=== PATIENT | female | born 1945 | race Native Hawaiian/Other Pacific Islander ===

== ENCOUNTER 2016-11-11 11:59 | Inpatient (IN) | payer MEDICARE, BC ==
--- NOTE | 2016-11-11 12:14 | C.PDOC ---
History Of Present Illness 70-year-old female, PMHx includes ESRD (HD MWF), presents to the emergency department, accompanied by family with complaints of fever. Patient has w/ a fever (T-Max: 101, three days ago), that is associated with nausea and non- bloody/non-bilious vomiting. Pt comes in today s/p dialysis (45 mins); Pt currently complaining of "feeling cold." All other Hx limited due to clinical condition. Time Seen by Provider: 11/11/16 12:06 Past Medical History Reviewed: Historical Data, Nursing Documentation, Vital Signs Vital Signs: Last Vital Signs Temp 99.9 F H 11/11/16 16:01 Pulse 102 H 11/11/16 17:21 Resp 21 11/11/16 17:21 BP 135/74 11/11/16 17:21 Pulse Ox 100 11/11/16 17:21 Family History: States: Unknown Family Hx Review Of Systems Review Of Systems: ROS cannot be obtained secondary to pt's inabilty to answer questions. Constitutional: Positive for: Fever ( PER FAMILY 101), Chills Cardiovascular: Negative for: Chest Pain Respiratory: Negative for: Shortness of Breath Gastrointestinal: Positive for: Vomiting ( PER FAMILY) Physical Exam - Physical Exam Appears: Non-toxic, Other (APPEARS WEAK) Skin: Warm, Dry, No Rash Eye(s): bilateral: Normal Inspection, PERRL Oral Mucosa: Moist Neck: Normal ROM Chest: Other (PORTACATH R CHEST ) Cardiovascular: Rhythm Regular Respiratory: No Accessory Muscle Use Gastrointestinal/Abdominal: No Tenderness, Distention (MILD), No Guarding, No Rebound Extremity: Normal ROM ED Course And Treatment - Laboratory Results Result Diagrams: 11/11/16 13:20 11/11/16 13:20 ECG: Interpreted By Me, Viewed By Ia ECG Rhythm: Sinus Tachycardia Rate From EC - Radiology CXR: Interpreted by Me CXR Interpretation: Yes: Infiltrates (L INFIL VS EFFUSION NO PRIOR) Progress - Re-Evaluation Re-evaluation Note: 11/11/16 13:45 S/P EVAL DR SENA. WILL CONSULT. ADVISES CT, PT CLEARED TO RECEIVE HD AND WILL ARRANGE FOR POST CT HD. ADMIT PMD, CONSULT DR CARROLL 11/11/16 18:00 D/W DR Ivone SOUSA AWARE OF ER FINDINGS WILL ADMIT PENDING CALLBACK DR SENA 11/11/16 18:11 CT FINDINGS D/W DR SENA 11/11/16 18:43 D/W DR CARROLL WILL CONSULT - Data Reviewed Data Reviewed: Lab, Diagnostic imaging, EKG, Old records - Critical Care Citical Care: Excluding Proc Time Critical Care Time: 90 minutes - Continuity of Care Discussed patient case with:: Patient, Family-HIPPA compliant, PMD Discussed pt. case with [employer] consultant/specialty: Nephrology Medical Decision Making Medical Decision Making: Plan: * VBG * EKG * BNP, CMP, Mag, Phos, Trop I * Chest X-Jack * Azithromycin, Rocephin * Blood/Urine Culture * Urinalysis * Reassess and Disposition Disposition Counseled Patient/Family Regarding: Studies Performed, Diagnosis - Disposition Disposition: HOSPITALIZED Disposition Time: 18:01 Condition: STABLE - POA Present On Arrival: Poor Glycemic Control - Clinical Impression Clinical Impression: ESRD (end stage renal disease), Intra-abdominal abscess - Scribe Statement The provider has reviewed the documentation as recorded by the Jean-Paul Ramachandran All medical record entries made by the O[place]hibmar[place]osa were at my direction and personally dictated by me. I have reviewed the chart and agree that the record accurately reflects my personal performance of the history, physical exam, medical decision making, and the department course for this patient. I have also personally directed, reviewed, and agree with the discharge instructions and disposition. Decision To Admit - Pt Status Changed To: Hospital Disposition Of: Inpatient - Admit Certification Admit to Inpatient:: After my assessment, the patient will require hospitalization for at least two midnights. This is because of the severity of symptoms shown, intensity of services needed, and/or the medical risk in this patient being treated as an outpatient. - InPatient: Physician Admission Certification: I certify that this patient requires 2 or more midnights of care for the following reason:: SEE NOTE - . Bed Request Type: Regular Admitting Physician: Geraldo Sousa Patient Diagnosis: ESRD (end stage renal disease), Intra-abdominal abscess
--- NOTE | 2016-11-11 12:57 | RAD ---
HISTORY: Sepsis Patient COMPARISON: No prior. FINDINGS: LUNGS: Hazy opacity in the lung bases. PLEURA: Left-sided pleural effusion. Biapical pleural parenchymal thickening noted. CARDIOVASCULAR: Enlarged heart. OSSEOUS STRUCTURES: The osseous structures demonstrate degenerative changes. VISUALIZED UPPER ABDOMEN: Upper abdomen is suboptimally evaluated. OTHER FINDINGS: Right-sided dialysis catheter with the distal tip of the catheter overlying the projection of the SVC/right atrial junction. IMPRESSION: Left-sided pleural effusion with associated compressive atelectasis and/ pneumonia.
[2016-11-11] MEDS ORDERED: cefTRIAXone IV 1 gm in Dextros 50 ML IV STA (12:59)
[2016-11-11] MEDS ORDERED: Azithromycin 500 MG in Sodium Chloride 0.9% 250 ML IV STA (12:59)
[2016-11-11 13:27] LABS: BASO # 0.1 K/uL (0.0-0.2); BASO % 0.3 % (0.0-2.0); EOS # 0.1 K/uL (0.0-0.7); EOS % 0.3 % (0.0-4.0); HEMATOCRIT 22.3 % (34.0-47.0); LYMPH # 1.1 K/uL (1.0-4.3); LYMPH % 5.8 % (20.0-40.0); MEAN CELL VOLUME 88.4 fL (81.0-99.0); MEAN CORPUSCULAR HEMOGLOBIN 28.8 pg (27.0-31.0); MEAN CORPUSCULAR HGB CONC 32.6 g/dL (33.0-37.0); MEAN PLATELET VOLUME 8.5 fL (7.2-11.7); MONO # 2.1 K/uL (0.0-0.8); MONO % 10.9 % (0.0-10.0); PLATELET COUNT 295 K/uL (130-400); RED CELL DISTRIBUTION WIDTH 15.9 % (11.5-14.5); WHITE BLOOD COUNT 18.9 K/uL (4.8-10.8)
[2016-11-11] MEDS ORDERED: cefTRIAXone IV 1 gm in Dextros 50 ML IVPB ONE (13:27)
[2016-11-11 13:31] LABS: VENOUS BLOOD GAS BASE EXCESS 5.2 mmol/L (0.0-2.0); VENOUS BLOOD GAS PCO2 39 mmHg (40-60); VENOUS BLOOD PH 7.48 (7.32-7.43)
[2016-11-11 13:36] LABS: POTASSIUM 4.4 mmol/L (3.6-5.2)
[2016-11-11] MEDS ORDERED: Azithromycin 500mg/250ML NS 250 ML IVPB ONE (13:36)
[2016-11-11 13:38] LABS: ALB/GLOB RATIO 0.7 (1.0-2.1); BILIRUBIN,TOTAL 1.4 mg/dL (0.2-1.3); PHOSPHOROUS 4.4 mg/dL (2.5-4.5); TOTAL PROTEIN 8.1 g/dL (6.3-8.3)
[2016-11-11 13:39] LABS: CALCIUM 9.4 mg/dl (8.6-10.4)
[2016-11-11 13:49] LABS: TROPONIN I 0.026 ng/mL (0.00-0.120)
[2016-11-11 13:56] LABS: INR 1.1
[2016-11-11 13:58] LABS: PARTIAL THROMBOPLASTIN TIME > 400 SECONDS (21-34)
[2016-11-11 14:04] LABS: REACTIVE LYMPHOCYTES 2 % (0-0); TOTAL CELLS COUNTED 100
[2016-11-11 14:08] LABS: NEUTROPHIL 64 % (50-75)
[2016-11-11] MEDS ORDERED: Piperacillin/Tazobact 3.375 gm 100 ML IV STA (14:15)
[2016-11-11] MEDS ORDERED: Piperacillin/Tazobact 3.375 gm 100 ML IVPB ONE (15:06)
[2016-11-11 15:19] LABS: VENOUS BLOOD GAS BASE EXCESS 4.7 mmol/L (0.0-2.0); VENOUS BLOOD GAS PCO2 37 mmHg (40-60); VENOUS BLOOD PH 7.49 (7.32-7.43)
[2016-11-11] MEDS ORDERED: Iohexol 350mg/ml 100 ML ONE (16:17)
--- NOTE | 2016-11-11 17:34 | CT ---
PROCEDURE: CT Abdomen and Pelvis with contrast HISTORY: FEVER, ESRD HO RECENT PERIONTITIS, PERIT DIALYSIS COMPARISON: Comparison is made to the previous study dated 07/05/2014 TECHNIQUE: Contrast dose: 100 mL Omnipaque Radiation dose: Total exam DLP = 586.19 mGy-cm. This CT exam was performed using one or more of the following dose reduction techniques: Automated exposure control, adjustment of the mA and/or kV according to patient size, and/or use of iterative reconstruction technique. FINDINGS: LOWER THORAX: Focal opacity at the right lower lobe. No evidence of significant pleural effusion. LIVER: No evidence of acute pathology or mass in the liver. GALLBLADDER AND BILE DUCTS: Gallstones are seen associated with diffuse gallbladder wall thickening. PANCREAS: Unremarkable. No gross lesion or ductal dilatation. SPLEEN: Unremarkable. ADRENALS: Unremarkable. No mass. KIDNEYS AND URETERS: The kidneys are small in size consistent with the patient's history of chronic renal failure. No evidence of hydronephrosis. Low-attenuation cystic lesion at the right kidney measures 1.5 centimeter. VASCULATURE: Unremarkable. No aortic aneurysm. BOWEL: Moderately dilated small bowel loops demonstrate moderate diffuse wall thickening seen in the abdomen and upper pelvis. The large bowel is partially collapse. Diffuse colonic diverticulosis are seen. APPENDIX: No evidence of appendicitis. PERITONEUM: There is small ascites in the abdomen. There is diffuse thick enhancement of the peritoneal. The possibility of peritonitis should be highly considered. There is enhancing wall collection at the lower abdomen. The possibility of abscess formation is not totally excluded. LYMPH NODES: Unremarkable. No enlarged lymph nodes. BLADDER: The urinary bladder is not distended therefore cannot be evaluated. REPRODUCTIVE: The uterus is mildly enlarged for the patient's age. BONES: No acute fracture. OTHER FINDINGS: None. IMPRESSION: Moderately dilated small bowel loops demonstrate moderate wall thickening seen in the abdomen and upper pelvis. Partially collapsed large bowel. Findings could represent bowel ileus or low-grade bowel obstruction in addition to enteritis. Diffuse thick enhancement of the peritoneal associated with small ascites. The possibility of peritonitis should be highly considered. Suspicious for enhancing wall collection at the lower abdomen. The possibility of abscess formation also should be considered. Gallstones. Mild gallbladder wall thickening.
--- NOTE | 2016-11-11 19:24 | CP.PCM.HP ---
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 This morning, pt vomited her stomach contents consisting mainly of tea, and dialysis was aborted bec of pt's apparent critical condition. Pt was sent to [facility] [place] ER where I was called 1 hour ago that pt was in the ER and to be admitted. Present on Admission - Present on Admission Any Indicators Present on Admission: No History of DVT/PE: No History of Uncontrolled Diabetes: No Urinary Catheter: No Decubitus Ulcer Present: No Review of Systems - Review of Systems Systems not reviewed;Unavailable: Unstable Vital Signs, Respiratory Distress - Constitutional Constitutional: Chills, Fatigue, Fever, Lethargy, Weakness - EENT Nose/Mouth/Throat: Dry Mouth - Cardiovascular Cardiovascular: Dyspnea on Exertion - Respiratory Respiratory: Other Additional comments: appears struggling to breathe - Gastrointestinal Gastrointestinal: Bloating Past Patient History - Infectious Disease Hx of Infectious Diseases: None - Past Social History Smoking Status: Never Smoked - PSYCHIATRIC Hx Substance Use: No Meds Allergies/Adverse Reactions: Allergies Allergy/AdvReac Type Severity Reaction Status Date / Time No Known Allergies Allergy Verified 11/11/16 15:52 Physical Exam - Constitutional Appears: In Acute Distress, Cachectic, Chronically Ill - Head Exam Head Exam: ATRAUMATIC, NORMAL INSPECTION, NORMOCEPHALIC - Eye Exam Eye Exam: Normal appearance Pupil Exam: NORMAL ACCOMODATION, PERRL - ENT Exam ENT Exam: Mucous Membranes Moist, Normal Exam - Neck Exam Neck exam: Positive for: Normal Inspection Additional comments: no thyroid tenderness - Respiratory Exam Respiratory Exam: NORMAL BREATHING PATTERN - Cardiovascular Exam Cardiovascular Exam: Tachycardia, RRR, +S1, +S2 - GI/Abdominal Exam GI & Abdominal Exam: Distended, Firm, Hypoactive Bowel Sounds, Rigid - Rectal Exam Rectal Exam: Deferred - Extremities Exam Extremities exam: Positive for: normal inspection - Back Exam Back exam: NORMAL INSPECTION - Neurological Exam Additional comments: appears very sleepy though mentation not obtunded; responds to questions appropriately though very quietly and slowly 2ndry to apparent shortness of breath - Psychiatric Exam Additional comments: appears very sleepy though mentation not obtunded; responds to questions appropriately though very quietly and slowly 2ndry to apparent shortness of breath Results - Vital Signs Recent Vital Signs: Last Vital Signs Temp 99.3 F 11/11/16 18:49 Pulse 98 H 11/11/16 18:49 Resp 22 11/11/16 18:49 BP 138/69 11/11/16 18:49 Pulse Ox 100 11/11/16 18:49 - Labs Result Diagrams: 11/12/16 06:30 11/12/16 06:48 Assessment & Plan (1) Anemia of chronic disease Assessment and Plan: stat transfusion of 2 units PRBC to optimize respiratory status and decrease stress on cardiovascular system Status: Acute (2) Gastroparesis Assessment and Plan: start on metoclopramide ACHS and taper when moving her bowels well already Status: Acute (3) Intra-abdominal abscess Assessment and Plan: consult ID for abx intervention and revisit imaging with CT scan after a few days if with resolution or improvement/decrease in size Status: Acute (4) ESRD (end stage renal disease) Assessment and Plan: consult nephro for stat hemodialysis Status: Acute (5) Generalized weakness Assessment and Plan: mostly multifactorial including prolonged systemic infection and anemia + ESRD Status: Acute Decision To Admit - Pt Status Changed To: Hospital Disposition Of: Inpatient - Admit Certification Admit to Inpatient:: After my assessment, the patient will require hospitalization for at least two midnights. This is because of the severity of symptoms shown, intensity of services needed, and/or the medical risk in this patient being treated as an outpatient. - InPatient: Physician Admission Certification:: After my assessment, the patient will require hospitalization for at least two midnights. This is because of the severity of symptoms shown, intensity of services needed, and/or the medical risk in this patient being treated as an outpatient. - . Bed Request Type: Telemetry Admitting Physician: Geraldo Sousa
--- NOTE | 2016-11-11 21:00 | CP.PCM.CON ---
History of Present Illness - History of Present Illness History of Present Illness: Gen Surg: Dr. Garzon 70F w/ PMHx of DM,HTN, ESRD who was admitted at [facility] acute rehab after a bout of peritonitis which was [place] [facility] [place] Pt was receiving HD but appeared short of breath and had been spiking fevers, HD stopped and pt sent to ED. Pt had bouts of emesis in the morning and complained of abdominal pain with coughing. Pt to be given emergent dialysis and blood transfusion, 2PRBCs. Review of Systems - Review of Systems Review of Systems: ROS unobtainable due to pt condition Past Patient History - Infectious Disease Hx of Infectious Diseases: None - Past Social History Smoking Status: Never Smoked - PSYCHIATRIC Hx Substance Use: No Meds Allergies/Adverse Reactions: Allergies Allergy/AdvReac Type Severity Reaction Status Date / Time No Known Allergies Allergy Verified 11/11/16 15:52 - Medications Medications: Current Medications Acetaminophen (Tylenol 325mg Tab) 650 mg PO Q6 PRN PRN Reason: temp > 99.5 Metoclopramide HCl (Reglan) 10 mg IVP ACHS MARYLOU Physical Exam - Constitutional Appears: Chronically Ill - Head Exam Head Exam: NORMAL INSPECTION - ENT Exam ENT Exam: Mucous Membranes Moist - Respiratory Exam Respiratory Exam: Decreased Breath Sounds. absent: Accessory Muscle Use - Cardiovascular Exam Cardiovascular Exam: +S1, +S2 - GI/Abdominal Exam GI & Abdominal Exam: Tenderness. absent: Distended, Firm, Guarding - Extremities Exam Extremities exam: Negative for: pedal edema - Neurological Exam Neurological exam: Alert - Skin Skin Exam: Intact, Warm Results - Vital Signs Recent Vital Signs: Last Vital Signs Temp 99.3 F 11/11/16 18:49 Pulse 98 H 11/11/16 18:49 Resp 22 11/11/16 18:49 BP 138/69 11/11/16 18:49 Pulse Ox 100 11/11/16 18:49 - Labs Result Diagrams: 11/13/16 07:16 11/13/16 07:16 Assessment & Plan - Assessment and Plan (Free Text) Assessment: 71F w/ hx of peritonitis -CT scan demonstrated fluid in abdomen -Currently no acute surgical intervention planned -Will ask IR to sample fluid in abdomen, drain if possible -C/w Abx tx as per ID -F/u cultures -Will continue to follow -Dw Dr. Garzon
[2016-11-12 06:42] LABS: EOS % 0.2 % (0.0-4.0); HEMATOCRIT 28.6 % (34.0-47.0); LYMPH # 0.7 K/uL (1.0-4.3); LYMPH % 3.9 % (20.0-40.0); MEAN CELL VOLUME 86.4 fL (81.0-99.0); MEAN CORPUSCULAR HGB CONC 33.6 g/dL (33.0-37.0); MEAN PLATELET VOLUME 8.3 fL (7.2-11.7); MONO # 1.4 K/uL (0.0-0.8); MONO % 7.5 % (0.0-10.0); PLATELET COUNT 285 K/uL (130-400); RED CELL DISTRIBUTION WIDTH 15.9 % (11.5-14.5); WHITE BLOOD COUNT 17.9 K/uL (4.8-10.8)
[2016-11-12 08:52] LABS: ALB/GLOB RATIO 0.7 (1.0-2.1); BILIRUBIN,TOTAL 1.3 mg/dL (0.2-1.3); CALCIUM 8.3 mg/dl (8.6-10.4); MAGNESIUM 1.9 mg/dL (1.6-2.3); PHOSPHOROUS 4.3 mg/dL (2.5-4.5); POTASSIUM 3.5 mmol/L (3.6-5.2); TOTAL PROTEIN 7.4 g/dL (6.3-8.3)
[2016-11-12 09:22] LABS: NEUTROPHIL 67 % (50-75); TOTAL CELLS COUNTED 100
--- NOTE | 2016-11-12 09:48 | CP.PCM.CON ---
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 This morning, pt vomited her stomach contents consisting mainly of tea, and dialysis was aborted. Past Patient History Hx of Infectious Diseases: None PMH: ESRD DIABETIC NEPHROPATHY DM 2 HTN S/P PSEUDOMONAS PERITONITIS 10/04 WITH ILEUS S/P TENKOFF REMOVAL 10/04 AT [facility] DUE TO VOMITING, FEVERS, SEVERE ANEMIA, ONABILTY TO SAFELY DIALYZE OUTPT PT SENT TO ED 11/11 GIVEN DIALYSIS WITH 2 UNITS PRBCS BLOOD TRANSFUSION LAST PM CONSULT DICTATED Past Patient History - Infectious Disease Hx of Infectious Diseases: None - Past Medical History & Family History Past Medical History?: Yes - Past Social History Smoking Status: Never Smoked - CARDIAC Hx Cardiac Disorders: Yes Hx Hypertension: Yes - PULMONARY Hx Respiratory Disorders: No - NEUROLOGICAL Hx Neurological Disorder: No - HEENT Hx HEENT Problems: No - RENAL Hx Chronic Kidney Disease: Yes Hx Dialysis: Yes Hx Renal Failure: Yes - ENDOCRINE/METABOLIC Hx Endocrine Disorders: No - HEMATOLOGICAL/ONCOLOGICAL Hx Blood Disorders: No - INTEGUMENTARY Hx Dermatological Problems: No - MUSCULOSKELETAL/RHEUMATOLOGICAL Hx Musculoskeletal Disorders: No Hx Falls: No - GASTROINTESTINAL Hx Gastrointestinal Disorders: No - GENITOURINARY/GYNECOLOGICAL Hx Genitourinary Disorders: No - PSYCHIATRIC Hx Substance Use: No - SURGICAL HISTORY Hx Surgeries: Yes Hx Vascular Surgery: Yes Hx Vascular Access Device: Yes - ANESTHESIA Hx Anesthesia: Yes Hx Anesthesia Reactions: No Meds Allergies/Adverse Reactions: Allergies Allergy/AdvReac Type Severity Reaction Status Date / Time No Known Allergies Allergy Verified 11/11/16 15:52 - Medications Medications: Current Medications Acetaminophen (Tylenol 325mg Tab) 650 mg PO Q6 PRN PRN Reason: temp > 99.5 Metoclopramide HCl (Reglan) 10 mg IVP ACHS [facility] Last Admin: 11/11/16 22:00 Dose: Not Given Results - Vital Signs Recent Vital Signs: Last Vital Signs Temp 99.4 F 11/12/16 07:22 Pulse 95 H 11/12/16 07:22 Resp 20 11/12/16 07:22 BP 112/69 11/12/16 07:22 Pulse Ox 98 11/12/16 07:22 - Labs Result Diagrams: 11/12/16 06:30 11/12/16 06:48 Labs: Laboratory Results - last 24 hr 11/11/16 11/12/16 11/12/16 21:14 06:30 06:48 WBC 17.9 H RBC 3.31 L Hgb 9.6 L D Hct 28.6 L MCV 86.4 D MCH 29.0 MCHC 33.6 RDW 15.9 H Plt Count 285 MPV 8.3 Neut % (Auto) 88.4 H Lymph % (Auto) 3.9 L Jack % (Auto) 7.5 Eos % (Auto) 0.2 Baso % (Auto) 0.0 Neut # 15.8 H Lymph # 0.7 L Jack # 1.4 H Eos # 0.0 Baso # 0.0 Neutrophils % (Manual) 67 Band Neutrophils % 22 H* Lymphocytes % (Manual) 2 L Monocytes % (Manual) 9 Platelet Estimate Normal Hypochromasia (manual) Slight Poikilocytosis (manual Slight Anisocytosis (manual) Slight Macrocytosis (manual) Slight Sodium 137 Potassium 3.5 L Chloride 95 L Carbon Dioxide 24 Anion Gap 22 H BUN 28 H Creatinine 4.2 H Est GFR ( Amer) 13 Est GFR (Non-Af Amer) 10 Random Glucose 121 H Lactic Acid Calcium 8.3 L Phosphorus 4.3 Magnesium 1.9 Total Bilirubin 1.3 AST 41 H ALT 27 Alkaline Phosphatase 163 H Total Protein 7.4 Albumin 3.1 L Globulin 4.3 H Albumin/Globulin Ratio 0.7 L Blood Type A POSITIVE Blood Type Confirm A POSITIVE Antibody Screen Negative 11/12/16 06:48 WBC RBC Hgb Hct MCV MCH MCHC RDW Plt Count MPV Neut % (Auto) Lymph % (Auto) Jack % (Auto) Eos % (Auto) Baso % (Auto) Neut # Lymph # Jack # Eos # Baso # Neutrophils % (Manual) Band Neutrophils % Lymphocytes % (Manual) Monocytes % (Manual) Platelet Estimate Hypochromasia (manual) Poikilocytosis (manual Anisocytosis (manual) Macrocytosis (manual) Sodium Potassium Chloride Carbon Dioxide Anion Gap BUN Creatinine Est GFR ( Amer) Est GFR (Non-Af Amer) Random Glucose Lactic Acid 1.2 Calcium Phosphorus Magnesium Total Bilirubin AST ALT Alkaline Phosphatase Total Protein Albumin Globulin Albumin/Globulin Ratio Blood Type Blood Type Confirm Antibody Screen
--- NOTE | 2016-11-12 11:29 | CP.PCM.CON ---
History of Present Illness - History of Present Illness History of Present Illness: hx of recent peritonitis IV Merrem/ Genta ordered await CT Past Patient History - Infectious Disease Hx of Infectious Diseases: None - Past Medical History & Family History Past Medical History?: Yes - Past Social History Smoking Status: Never Smoked - CARDIAC Hx Cardiac Disorders: Yes Hx Hypertension: Yes - PULMONARY Hx Respiratory Disorders: No - NEUROLOGICAL Hx Neurological Disorder: No - HEENT Hx HEENT Problems: No - RENAL Hx Chronic Kidney Disease: Yes Hx Dialysis: Yes Hx Renal Failure: Yes - ENDOCRINE/METABOLIC Hx Endocrine Disorders: No - HEMATOLOGICAL/ONCOLOGICAL Hx Blood Disorders: No - INTEGUMENTARY Hx Dermatological Problems: No - MUSCULOSKELETAL/RHEUMATOLOGICAL Hx Musculoskeletal Disorders: No Hx Falls: No - GASTROINTESTINAL Hx Gastrointestinal Disorders: No - GENITOURINARY/GYNECOLOGICAL Hx Genitourinary Disorders: No - PSYCHIATRIC Hx Substance Use: No - SURGICAL HISTORY Hx Surgeries: Yes Hx Vascular Surgery: Yes Hx Vascular Access Device: Yes - ANESTHESIA Hx Anesthesia: Yes Hx Anesthesia Reactions: No Meds Allergies/Adverse Reactions: Allergies Allergy/AdvReac Type Severity Reaction Status Date / Time No Known Allergies Allergy Verified 11/11/16 15:52 - Medications Medications: Current Medications Acetaminophen (Tylenol 325mg Tab) 650 mg PO Q6 PRN PRN Reason: temp > 99.5 Epoetin Mik (Procrit) 10,000 unit IV MWF MARYLOU Dextrose/Sodium Chloride (Dextrose 5%/0.45% Ns 1000 Ml) 1,000 mls @ 50 mls/hr IV .Q20H MARYLOU Metoclopramide HCl (Reglan) 10 mg IVP ACHS MARYLOU Last Admin: 11/11/16 22:00 Dose: Not Given Results - Vital Signs Recent Vital Signs: Last Vital Signs Temp 99.4 F 11/12/16 07:22 Pulse 95 H 11/12/16 07:22 Resp 20 11/12/16 07:22 BP 112/69 11/12/16 07:22 Pulse Ox 98 11/12/16 07:22 - Labs Result Diagrams: 11/12/16 06:30 11/12/16 06:48 Labs: Laboratory Results - last 24 hr 11/11/16 11/12/16 11/12/16 21:14 06:30 06:48 WBC 17.9 H RBC 3.31 L Hgb 9.6 L D Hct 28.6 L MCV 86.4 D MCH 29.0 MCHC 33.6 RDW 15.9 H Plt Count 285 MPV 8.3 Neut % (Auto) 88.4 H Lymph % (Auto) 3.9 L [place] % (Auto) 7.5 Eos % (Auto) 0.2 Baso % (Auto) 0.0 Neut # 15.8 H Lymph # 0.7 L [place] # 1.4 H Eos # 0.0 Baso # 0.0 Neutrophils % (Manual) 67 Band Neutrophils % 22 H* Lymphocytes % (Manual) 2 L Monocytes % (Manual) 9 Platelet Estimate Normal Hypochromasia (manual) Slight Poikilocytosis (manual Slight Anisocytosis (manual) Slight Macrocytosis (manual) Slight Sodium 137 Potassium 3.5 L Chloride 95 L Carbon Dioxide 24 Anion Gap 22 H BUN 28 H Creatinine 4.2 H Est GFR ( Amer) 13 Est GFR (Non-Af Amer) 10 Random Glucose 121 H Lactic Acid Calcium 8.3 L Phosphorus 4.3 Magnesium 1.9 Total Bilirubin 1.3 AST 41 H ALT 27 Alkaline Phosphatase 163 H Total Protein 7.4 Albumin 3.1 L Globulin 4.3 H Albumin/Globulin Ratio 0.7 L Blood Type A POSITIVE Blood Type Confirm A POSITIVE Antibody Screen Negative 11/12/16 06:48 WBC RBC Hgb Hct MCV MCH MCHC RDW Plt Count MPV Neut % (Auto) Lymph % (Auto) [place] % (Auto) Eos % (Auto) Baso % (Auto) Neut # Lymph # [place] # Eos # Baso # Neutrophils % (Manual) Band Neutrophils % Lymphocytes % (Manual) Monocytes % (Manual) Platelet Estimate Hypochromasia (manual) Poikilocytosis (manual Anisocytosis (manual) Macrocytosis (manual) Sodium Potassium Chloride Carbon Dioxide Anion Gap BUN Creatinine Est GFR ( Amer) Est GFR (Non-Af Amer) Random Glucose Lactic Acid 1.2 Calcium Phosphorus Magnesium Total Bilirubin AST ALT Alkaline Phosphatase Total Protein Albumin Globulin Albumin/Globulin Ratio Blood Type Blood Type Confirm Antibody Screen
[2016-11-12] MEDS: Meropenem 500 MG in Sodium Chloride 0.9% 100 ML IVPB SCH (11:30)
--- NOTE | 2016-11-12 11:44 | CON ---
DATE: 11/12/2016 HISTORY OF PRESENT ILLNESS: The patient is a 70-year-old Italian woman who has been on maintenance peritoneal dialysis 6-1/2 years. She presents to the Emergency Department on 11/11 in the p.m. due t o nausea and vomiting, a large amount of vomiting, fevers and chills which has been going on for at east several days to weeks. She came into the Emergency Department severely anemic and had dialysis with a blood transfusion in the evening of 11/11. PAST MEDICAL HISTORY: End-stage renal disease due to diabetic nephropathy. She has diabetes mellitu s type 2. Has hypertension, secondary hyperparathyroidism. The PD was going well until approximatel y 6 weeks ago, when she had cloudy peritoneal fluid drained. She was diagnosed as having acute perit onitis, was treated at [facility]. Diagnosis was Pseudomonas peritonitis and at that time, the peritoneal dialysis catheter was eventually removed and she did have an ileus at that time . Since then, the belly is becoming increasingly distended as an outpatient and because of the fever s and the vomiting, it was unable to safely dialyze the patient as an outpatient. PAST SURGICAL HISTORY: Tenckhoff catheter insertion and removal. SOCIAL HISTORY: Negative for smoking, alcohol abuse or illicit drug use. MEDICATIONS: Previously was Reglan. Now she is on Rocephin. She had been on Rocephin and Zosyn in the Emergency Department; they were stopped though and blood cultures were drawn. FAMILY HISTORY: Noncontributory. REVIEW OF SYSTEMS: Significant for nausea, vomiting, abdominal pain, increasing abdominal distention , fevers and chills and now she has not had a bowel movement. BLOOD WORK: Showed initially she had a hemoglobin of 7.3; after transfusion hemoglobin was 9.6, whit e count was 18.9. Blood chemistries showed a BUN of 56, creatinine 7.3, potassium was 4.4, albumin w as 3.4 initially. Cultures were drawn and results are pending. IMAGING DATA: She also had a CAT scan and CAT scan showed possible intraabdominal abscess and a smal l amount of ascites and thick enhancement of the peritoneum and peritonitis is being considered an ab scess is being considered. IMPRESSION: The patient likely has an acute abdominal infection with peritonitis and abscess, end-st age renal disease, diabetic nephropathy, severe anemia. She is status post dialysis, status post blo od transfusion. Cultures were drawn. IV antibiotics were given and a surgical consult needs to be r equested and further surgery might be needed. We will continue dialysis 3 times weekly and follow up . Hansel Wall MD cc: [id number] TT: 11/12/2016 11:44:05 Confirmation # [id number] Dictation # [id number]
[2016-11-12] MEDS: Dextrose 5%/0.45% NS 1,000 ML IV SCH (12:17)
[2016-11-12] MEDS ORDERED: Gentamicin 160 MG in Sodium Chloride 0.9% 100 ML IVPB ONE (13:15)
--- NOTE | 2016-11-12 19:32 | CP.PCM.PN ---
Subjective - Date & Time of Evaluation Date of Evaluation: 11/12/16 Time of Evaluation: 19:18 - Subjective Subjective: Pt received 2 units PRBC overnight with significant improvement in strength and clarity of speech, together with hemodialysis performed emergently last night after procedure aborted 2ndry to vomiting and fever during dialysis. Nursing also reports that pt more animated today than yesterday, and not as short of breath. Pt noted increased frequency of BM, prob from q6h pro-motility agent. > Appreciate rapid response of various services to consultation. Thanks. Objective - Vital Signs/Intake and Output Vital Signs (last 24 hours): Temp Pulse Resp BP Pulse Ox 98.6 F 92 H 20 129/74 99 11/12/16 15:30 11/12/16 15:32 11/12/16 15:30 11/12/16 15:30 11/12/16 15:32 Intake and Output: 11/12/16 11/13/16 18:59 06:59 Intake Total 400 Balance 400 - Medications Medications: Current Medications Acetaminophen (Tylenol 325mg Tab) 650 mg PO Q6 PRN PRN Reason: temp > 99.5 Acetaminophen (Tylenol 325mg Tab) 325 mg PO PRN PRN PRN Reason: Fever >100.4 F Epoetin Mik (Procrit) 10,000 unit IV MWF [facility] Dextrose/Sodium Chloride (Dextrose 5%/0.45% Ns 1000 Ml) 1,000 mls @ 50 mls/hr IV .Q20H [facility] Last Admin: 11/12/16 12:17 Dose: 50 mls/hr Meropenem 500 mg/ Sodium (Chloride) 100 mls @ 100 mls/hr IVPB Q12H [facility] Last Admin: 11/12/16 11:30 Dose: Not Given Gentamicin Sulfate/Sodium Chloride (Gentamicin Iv 80 Mg Premix) 80 mg in 100 mls @ 100 mls/hr IVPB MWF [facility] Metoclopramide HCl (Reglan) 10 mg IVP ACL [facility] Nitroglycerin (Nitrostat Sl Tab) 0.4 mg SL PRN PRN PRN Reason: chest pain - Labs Labs: 11/12/16 06:30 11/12/16 06:48 PT 12.9 SECONDS (9.7-12.2) H 11/11/16 13:20 INR 1.1 04/24/17 13:20 APTT > 400 SECONDS (21-34) H* 11/11/16 13:20 - Constitutional Appears: No Acute Distress, Cachectic, Chronically Ill - Head Exam Head Exam: NORMAL INSPECTION - Eye Exam Eye Exam: EOMI, Normal appearance (eyes more alert looking) Pupil Exam: NORMAL ACCOMODATION, PERRL - ENT Exam ENT Exam: Normal Exam - Neck Exam Neck Exam: Normal Inspection - Respiratory Exam Respiratory Exam: Clear to Ausculation Bilateral, NORMAL BREATHING PATTERN - Cardiovascular Exam Cardiovascular Exam: REGULAR RHYTHM - GI/Abdominal Exam GI & Abdominal Exam: Soft, Normal Bowel Sounds - Rectal Exam Rectal Exam: Deferred - Neurological Exam Neurological Exam: Alert, Awake, CN II-XII Intact, Oriented x3 Neuro motor strength exam: Left Upper Extremity: 4, Right Upper Extremity: 4, Left Lower Extremity: 3, Right Lower Extremity: 3 - Psychiatric Exam Psychiatric exam: Normal Affect, Normal Mood - Skin Skin Exam: Dry, Intact, Normal Color, Warm Assessment and Plan (1) Anemia of chronic disease Status: Chronic (2) Gastroparesis Assessment & Plan: improving, decrease metoclopramide Status: Acute (3) Intra-abdominal abscess Assessment & Plan: on IV abx per ID Status: Acute (4) ESRD (end stage renal disease) Assessment & Plan: on HD Status: Acute (5) Generalized weakness Assessment & Plan: for PT Status: Acute
[2016-11-13] MEDS: Meropenem 500 MG in Sodium Chloride 0.9% 100 ML IVPB SCH ×3 (00:37→22:52)
[2016-11-13 07:39] LABS: HEMATOCRIT 30.1 % (34.0-47.0); MEAN CELL VOLUME 87.6 fL (81.0-99.0); MEAN CORPUSCULAR HEMOGLOBIN 27.9 pg (27.0-31.0); MEAN CORPUSCULAR HGB CONC 31.8 g/dL (33.0-37.0); MEAN PLATELET VOLUME 8.2 fL (7.2-11.7); RED CELL DISTRIBUTION WIDTH 16.7 % (11.5-14.5)
[2016-11-13 07:49] LABS: POTASSIUM 3.5 mmol/L (3.6-5.2)
[2016-11-13 07:51] LABS: ALB/GLOB RATIO 0.7 (1.0-2.1); BILIRUBIN,TOTAL 0.7 mg/dL (0.2-1.3); TOTAL PROTEIN 7.4 g/dL (6.3-8.3)
[2016-11-13 07:52] LABS: CALCIUM 9.6 mg/dl (8.6-10.4)
[2016-11-13] MEDS: Gentamicin 80 mg in 0.9% NS 80 MG/100 ML BAG IVPB SCH (08:19)
[2016-11-13] MEDS ORDERED: EPOETIN ALFA 10,000 UNIT/ML ML IV SCH (09:00)
--- NOTE | 2016-11-13 10:33 | CP.PCM.PN ---
Subjective - Date & Time of Evaluation Date of Evaluation: 11/13/16 Time of Evaluation: 10:30 - Subjective Subjective: on HD on AB says abdominal pain is better tolerating po not clear if moving bowels no fever no rash no headache no u/o no cough no vomiting Objective - Vital Signs/Intake and Output Vital Signs (last 24 hours): Temp Pulse Resp BP Pulse Ox 97.7 F 86 18 136/77 99 11/13/16 08:40 11/13/16 08:40 11/13/16 08:40 11/13/16 08:40 11/13/16 08:40 - Medications Medications: Current Medications Acetaminophen (Tylenol 325mg Tab) 650 mg PO Q6 PRN PRN Reason: temp > 99.5 Epoetin Mik (Procrit) 10,000 unit IV MWF [facility] Dextrose/Sodium Chloride (Dextrose 5%/0.45% Ns 1000 Ml) 1,000 mls @ 50 mls/hr IV .Q20H [facility] Last Admin: 11/12/16 12:17 Dose: 50 mls/hr Meropenem 500 mg/ Sodium (Chloride) 100 mls @ 100 mls/hr IVPB Q12H [facility] Last Admin: 11/13/16 00:37 Dose: 100 mls/hr Gentamicin Sulfate/Sodium Chloride (Gentamicin Iv 80 Mg Premix) 80 mg in 100 mls @ 100 mls/hr IVPB MWF [facility] Last Admin: 11/13/16 08:19 Dose: 100 mls/hr Metoclopramide HCl (Reglan) 10 mg IVP ACL [facility] Nitroglycerin (Nitrostat Sl Tab) 0.4 mg SL Q15M PRN PRN Reason: chest pain - Labs Labs: 11/13/16 07:16 11/13/16 07:16 PT 12.9 SECONDS (9.7-12.2) H 11/11/16 13:20 INR 1.1 11/11/16 13:20 APTT > 400 SECONDS (21-34) H* 11/11/16 13:20 - Constitutional Appears: Non-toxic, Chronically Ill - Eye Exam Eye Exam: EOMI, Normal appearance - ENT Exam ENT Exam: Mucous Membranes Moist - Neck Exam Neck Exam: Full ROM. absent: Lymphadenopathy - Respiratory Exam Respiratory Exam: NORMAL BREATHING PATTERN. absent: Accessory Muscle Use - Cardiovascular Exam Cardiovascular Exam: REGULAR RHYTHM. absent: Rubs - GI/Abdominal Exam GI & Abdominal Exam: Distended, Normal Bowel Sounds - Extremities Exam Extremities Exam: absent: Pedal Edema Assessment and Plan - Assessment and Plan (Free Text) Assessment: recent peritonitis with bowel obstruction and abscess] ct scan still appears abnorml of abdomen ?does she need ct guided drainage continued ab and HD support for now
[2016-11-13] MEDS: Epoetin Alfa 10,000 unit/ml Dialysis IV SCH (11:00)
--- NOTE | 2016-11-13 18:23 | CP.PCM.PN ---
Subjective - Date & Time of Evaluation Date of Evaluation: 11/13/16 Time of Evaluation: 08:00 - Subjective Subjective: awake alert + abd pain weak Objective - Vital Signs/Intake and Output Vital Signs (last 24 hours): Temp Pulse Resp BP Pulse Ox 97.7 F 89 20 110/59 L 100 11/13/16 13:10 11/13/16 13:10 11/13/16 13:10 11/13/16 13:10 11/13/16 13:10 Intake and Output: 11/13/16 11/13/16 06:59 18:59 Intake Total 450 Balance 450 - Medications Medications: Current Medications Acetaminophen (Tylenol 325mg Tab) 650 mg PO Q6 PRN PRN Reason: temp > 99.5 Epoetin Mik (Procrit) 10,000 unit IV [facility] Last Admin: 11/13/16 11:00 Dose: Not Given Dextrose/Sodium Chloride (Dextrose 5%/0.45% Ns 1000 Ml) 1,000 mls @ 50 mls/hr IV .Q20H [facility] Last Admin: 11/12/16 12:17 Dose: 50 mls/hr Meropenem 500 mg/ Sodium (Chloride) 100 mls @ 100 mls/hr IVPB Q12H [facility] Last Admin: 11/13/16 11:30 Dose: Not Given Gentamicin Sulfate/Sodium Chloride (Gentamicin Iv 80 Mg Premix) 80 mg in 100 mls @ 100 mls/hr IVPB MWF [facility] Last Admin: 11/13/16 08:19 Dose: 100 mls/hr Metoclopramide HCl (Reglan) 10 mg IVP ACL [facility] Last Admin: 11/13/16 11:30 Dose: Not Given Nitroglycerin (Nitrostat Sl Tab) 0.4 mg SL Q15M PRN PRN Reason: chest pain - Labs Labs: 11/13/16 07:16 11/13/16 07:16 PT 12.9 SECONDS (9.7-12.2) H 11/11/16 13:20 INR 1.1 11/11/16 13:20 APTT 50 SECONDS (21-34) H D 11/13/16 14:11 - Constitutional Appears: Non-toxic, Cachectic, Chronically Ill - Head Exam Head Exam: NORMOCEPHALIC - Eye Exam Eye Exam: PERRL. absent: Scleral icterus - ENT Exam ENT Exam: Mucous Membranes Dry - Neck Exam Neck Exam: absent: Lymphadenopathy, Thyromegaly - Respiratory Exam Respiratory Exam: Decreased Breath Sounds, Rhonchi - Cardiovascular Exam Cardiovascular Exam: Tachycardia, REGULAR RHYTHM, +S1, +S2 - GI/Abdominal Exam GI & Abdominal Exam: Distended, Soft, Tenderness, Hypoactive Bowel Sounds. absent: Organomegaly - Rectal Exam Rectal Exam: Deferred - Exam Exam: NORMAL INSPECTION - Extremities Exam Extremities Exam: Pedal Edema. absent: Calf Tenderness, Tenderness - Back Exam Back Exam: absent: CVA tenderness (L), CVA tenderness (R) - Neurological Exam Neurological Exam: Alert, Awake, Oriented x3 - Psychiatric Exam Psychiatric exam: Normal Mood - Skin Skin Exam: Dry Assessment and Plan (1) ESRD (end stage renal disease) Status: Acute (2) Intra-abdominal abscess Status: Acute - Assessment and Plan (Free Text) Assessment: cont rx MDRO Pseudomonas await cultures
--- NOTE | 2016-11-13 21:27 | CP.PCM.PN ---
Subjective - Date & Time of Evaluation Date of Evaluation: 11/13/16 Time of Evaluation: 21:23 - Subjective Subjective: Pt sleeping quietly, though when awakened, admits that she is in a lot of pain. Very mild pressure on the lower abdomen at the start of the curve of skin towards the pelvis midline elicited a vigorous response of pain from the pt. Pt perplexed as to why she is in so much pain, and explained presence of possible abscess on top of enteritis, cholecystitis and cholelithiasis. Pt finally verbalized understanding. Know she is for drainage of abscess by IR in am. Discussed pros and cons with pt and she said "if it will help, then let's go!" Objective - Vital Signs/Intake and Output Vital Signs (last 24 hours): Temp Pulse Resp BP Pulse Ox 98.3 F 97 H 20 133/74 100 11/13/16 15:45 11/13/16 15:45 11/13/16 15:45 11/13/16 15:45 11/13/16 15:45 Intake and Output: 11/13/16 11/14/16 18:59 06:59 Intake Total 450 Balance 450 - Medications Medications: Current Medications Acetaminophen (Tylenol 325mg Tab) 650 mg PO Q6 PRN PRN Reason: temp > 99.5 Epoetin Mik (Procrit) 10,000 unit IV [facility] Last Admin: 11/13/16 11:00 Dose: Not Given Dextrose/Sodium Chloride (Dextrose 5%/0.45% Ns 1000 Ml) 1,000 mls @ 50 mls/hr IV .Q20H [facility] Last Admin: 11/12/16 12:17 Dose: 50 mls/hr Meropenem 500 mg/ Sodium (Chloride) 100 mls @ 100 mls/hr IVPB Q12H [facility] Last Admin: 11/13/16 11:30 Dose: Not Given Gentamicin Sulfate/Sodium Chloride (Gentamicin Iv 80 Mg Premix) 80 mg in 100 mls @ 100 mls/hr IVPB [facility] Last Admin: 11/13/16 08:19 Dose: 100 mls/hr Metoclopramide HCl (Reglan) 10 mg IVP ACLD [facility] Nitroglycerin (Nitrostat Sl Tab) 0.4 mg SL Q15M PRN PRN Reason: chest pain - Labs Labs: 11/13/16 07:16 11/13/16 07:16 PT 12.9 SECONDS (9.7-12.2) H 11/11/16 13:20 INR 1.1 11/11/16 13:20 APTT 50 SECONDS (21-34) H D 11/13/16 14:11 - Constitutional Appears: No Acute Distress, Other (for all fo our sanity or i'm going to candis it again/ ) - Head Exam Head Exam: NORMAL INSPECTION, NORMOCEPHALIC - Eye Exam Eye Exam: EOMI, Normal appearance, Periorbital tenderness, PERRL - ENT Exam ENT Exam: Mucous Membranes Moist, Normal Exam, Normal Oropharynx - Neck Exam Neck Exam: Full ROM, Normal Inspection - Respiratory Exam Respiratory Exam: Clear to Ausculation Bilateral, NORMAL BREATHING PATTERN Additional comments: through decreased at [place] - Cardiovascular Exam Cardiovascular Exam: REGULAR RHYTHM - GI/Abdominal Exam GI & Abdominal Exam: Soft, Hyperactive Bowel Sounds, Hypoactive Bowel Sounds - Rectal Exam Rectal Exam: Deferred - Extremities Exam Extremities Exam: Full ROM, Normal Capillary Refill - Back Exam Back Exam: NORMAL INSPECTION - Neurological Exam Neuro motor strength exam: Left Upper Extremity: 3, Right Upper Extremity: 3, Left Lower Extremity: 3, Right Lower Extremity: 3 - Psychiatric Exam Psychiatric exam: Normal Affect, Normal Mood - Skin Skin Exam: Dry, Intact, Normal Color, Warm Assessment and Plan (1) Anemia of chronic disease Assessment & Plan: check serum iron levels 2ndry to microcytosis Status: Chronic (2) Gastroparesis Assessment & Plan: started on metoclopramide Status: Acute (3) Intra-abdominal abscess Assessment & Plan: for IR draiinage in AM. Pt aware of risks Status: Acute (4) ESRD (end stage renal disease) Assessment & Plan: gets HD mwf Status: Acute (5) Generalized weakness Assessment & Plan: part and parcel of chroni c illllldddlllllllllllllllllllllllllllllllllllllllllllllllllllllllllllllllllllllll llllllllllllllllllllllllllllllllllllllllllllllllllllllllllllllllllllllllllld dddddddddddddddddddddddddddddddddddddddddddddddddddddddddddddddddddddddddddddddd dddddddddddddddddddd dddddddddddddddddddddddddddddddddddddddddddddddddddddddddddddddddddddddddddddddd dddddddddddddddddddd dddddddddddddddddddddddddddddddddddddddddddddddddddddddddddddddddddddddddddddddd dddddddddddddddddddd [facility] Status: Acute
[2016-11-14 08:21] LABS: HEMATOCRIT 28.4 % (34.0-47.0); MEAN CELL VOLUME 87.4 fL (81.0-99.0); MEAN CORPUSCULAR HEMOGLOBIN 28.3 pg (27.0-31.0); MEAN CORPUSCULAR HGB CONC 32.3 g/dL (33.0-37.0); MEAN PLATELET VOLUME 7.7 fL (7.2-11.7); RED CELL DISTRIBUTION WIDTH 16.6 % (11.5-14.5); WHITE BLOOD COUNT 12.5 K/uL (4.8-10.8)
[2016-11-14] MEDS ORDERED: Midazolam 2 MG/2 ML VIAL ONE (08:27)
[2016-11-14] MEDS ORDERED: Propofol 10 mg/ml Inj (20 ML) ONE (08:28)
[2016-11-14 08:31] LABS: POTASSIUM 3.5 mmol/L (3.6-5.2)
[2016-11-14 08:33] LABS: BILIRUBIN,TOTAL 1.3 mg/dL (0.2-1.3)
[2016-11-14 08:34] LABS: ALB/GLOB RATIO 0.6 (1.0-2.1); TOTAL PROTEIN 7.2 g/dL (6.3-8.3)
[2016-11-14 08:35] LABS: CALCIUM 9.2 mg/dl (8.6-10.4)
--- NOTE | 2016-11-14 09:00 | PCM.SURG1 ---
Surgeon's Initial Post Op Note - Surgeon's Notes Surgeon: Yuri [employer] Teacher: None Type of Anesthesia: IV Sedation, Local Pre-Operative Diagnosis: Anterior abdominal collection. Operative Findings: Anterior abdominal collection slightly reduced in size when compared to the most recent CT scan. Post-Operative Diagnosis: Anterior abdominal collection. Operation Performed: Anterior abdominal collection aspiration with image guidance. Specimen/Specimens Removed: 50cc of purulent fluid aspirated. Estimated Blood Loss: EBL {In ML}: 1 Date of Surgery/Procedure: 11/14/16 Time of Surgery/Procedure: 08:40
--- NOTE | 2016-11-14 10:59 | CP.PCM.PN ---
Subjective - Date & Time of Evaluation Date of Evaluation: 11/14/16 Time of Evaluation: 10:56 - Subjective Subjective: s/p aspiration purulent fluid collection this AM- 50 ml Stable dialysis course MWF On IV ABs as per ID Leukocytosis improving Pt lethargic post procedure Objective - Vital Signs/Intake and Output Vital Signs (last 24 hours): Temp Pulse Resp BP Pulse Ox 97.9 F 92 H 20 138/68 95 11/13/16 23:25 11/13/16 23:25 11/13/16 23:25 11/13/16 23:25 11/13/16 23:25 Intake and Output: 11/14/16 11/14/16 06:59 18:59 Intake Total 570 Balance 570 - Medications Medications: Current Medications Acetaminophen (Tylenol 325mg Tab) 650 mg PO Q6 PRN PRN Reason: temp > 99.5 Last Admin: 11/13/16 22:48 Dose: 650 mg Epoetin Mik (Procrit) 10,000 unit IV F [facility] Last Admin: 11/13/16 11:00 Dose: Not Given Dextrose/Sodium Chloride (Dextrose 5%/0.45% Ns 1000 Ml) 1,000 mls @ 50 mls/hr IV .Q20H [facility] Last Admin: 11/12/16 12:17 Dose: 50 mls/hr Meropenem 500 mg/ Sodium (Chloride) 100 mls @ 100 mls/hr IVPB Q12H [facility] Last Admin: 11/13/16 22:52 Dose: 100 mls/hr Gentamicin Sulfate/Sodium Chloride (Gentamicin Iv 80 Mg Premix) 80 mg in 100 mls @ 100 mls/hr IVPB MWF [facility] Last Admin: 11/13/16 08:19 Dose: 100 mls/hr Metoclopramide HCl (Reglan) 10 mg IVP ACLD [facility] Nitroglycerin (Nitrostat Sl Tab) 0.4 mg SL Q15M PRN PRN Reason: chest pain - Labs Labs: 11/14/16 08:16 11/14/16 08:16 PT 12.9 SECONDS (9.7-12.2) H 11/11/16 13:20 INR 1.1 11/11/16 13:20 APTT 50 SECONDS (21-34) H D 11/13/16 14:11 - Head Exam Head Exam: ATRAUMATIC, NORMAL INSPECTION - Eye Exam Eye Exam: EOMI, Normal appearance - Neck Exam Neck Exam: Normal Inspection. absent: Tenderness - Respiratory Exam Respiratory Exam: Clear to Ausculation Bilateral, NORMAL BREATHING PATTERN - Cardiovascular Exam Cardiovascular Exam: REGULAR RHYTHM, +S1 - GI/Abdominal Exam GI & Abdominal Exam: Distended, Soft. absent: Tenderness - Extremities Exam Extremities Exam: Normal Inspection, Tenderness. absent: Pedal Edema - Neurological Exam Neurological Exam: Alert, CN II-XII Intact - Skin Skin Exam: Dry, Warm Assessment and Plan (1) Type 2 diabetes mellitus with diabetic nephropathy Status: Acute (2) ESRD (end stage renal disease) Status: Acute (3) Intra-abdominal abscess Status: Acute - Assessment and Plan (Free Text) Plan: Continue IV ABs Await fluid C+S Dialysis MWF
[2016-11-14] MEDS: Meropenem 500 MG in Sodium Chloride 0.9% 100 ML IVPB SCH (11:33)
[2016-11-14] MEDS: Dextrose 5%/0.45% NS 1,000 ML IV SCH (14:00)
--- NOTE | 2016-11-14 16:26 | CT ---
CT guided drainage Clinical indication: 71-year-old female with lower abdominal abscess. Anesthesia: Local Lidocaine. IV sedation. Comparison: Comparison is made to prior CT from 11/11/2016. Procedure and findings: The procedure was explained to the patient in detail including relative risks and benefits. The patient understood the procedure well and provided written informed consent. The patient was positioned supine on the CT table. Continuous physiologic monitoring was provided by the interventional radiology nurse. Initial limited CT images demonstrated a fluid collection in the lower mid abdomen. A metallic grid was positioned over the approximate position of the left hemipelvic fluid collection and a percutaneous access site was chosen. 1% lidocaine was utilized to anesthetize the skin and the underlying subcutaneous tissue. An 5 [place]kin[place] centesis catheter was utilized to access the lower mid abdomen all fluid collection. The inner stylet was removed. Approximately 50 cc of frankly purulent fluid was aspirated. The catheter was then removed. Final CT evaluation demonstrated near complete resolution of the mid abdominal fluid collection. The patient tolerated the procedure well without incident. The patient was transferred to the recovery room in stable condition. Impression: Successful CT-guided drainage of mid abdominal collection as described above. Approximately 50 cc of frankly purulent fluid was aspirated and sent for microbiologic analysis.
--- NOTE | 2016-11-14 18:05 | CP.PCM.PN ---
Subjective - Date & Time of Evaluation Date of Evaluation: 11/14/16 Time of Evaluation: 10:00 - Subjective Subjective: Pt S&E with attending during rounds in AM. Patient was seen by IR today. IR able to drain 50cc's or purulent fluid from mid abdominal region. Pt's WBC improving. Objective - Vital Signs/Intake and Output Vital Signs (last 24 hours): Temp Pulse Resp BP Pulse Ox 98.2 F 86 20 151/83 H 96 11/14/16 16:00 11/14/16 16:00 11/14/16 16:00 11/14/16 16:00 11/14/16 16:00 Intake and Output: 11/14/16 11/14/16 06:59 18:59 Intake Total 570 250 Balance 570 250 - Medications Medications: Current Medications Acetaminophen (Tylenol 325mg Tab) 650 mg PO Q6 PRN PRN Reason: temp > 99.5 Last Admin: 11/14/16 14:52 Dose: 650 mg Epoetin Mik (Procrit) 10,000 unit IV [facility] Last Admin: 11/13/16 11:00 Dose: Not Given Dextrose/Sodium Chloride (Dextrose 5%/0.45% Ns 1000 Ml) 1,000 mls @ 50 mls/hr IV .Q20H [facility] Last Admin: 11/14/16 14:00 Dose: 50 mls/hr Meropenem 500 mg/ Sodium (Chloride) 100 mls @ 100 mls/hr IVPB Q12H [facility] Last Admin: 11/14/16 11:33 Dose: 100 mls/hr Gentamicin Sulfate/Sodium Chloride (Gentamicin Iv 80 Mg Premix) 80 mg in 100 mls @ 100 mls/hr IVPB MWF [facility] Last Admin: 11/13/16 08:19 Dose: 100 mls/hr Metoclopramide HCl (Reglan) 10 mg IVP ACLD [facility] Last Admin: 11/14/16 17:21 Dose: 10 mg Nitroglycerin (Nitrostat Sl Tab) 0.4 mg SL Q15M PRN PRN Reason: chest pain - Labs Labs: 11/14/16 08:16 11/14/16 08:16 PT 12.9 SECONDS (9.7-12.2) H 11/11/16 13:20 INR 1.1 11/11/16 13:20 APTT 50 SECONDS (21-34) H D 11/13/16 14:11 - Constitutional Appears: Non-toxic - Cardiovascular Exam Cardiovascular Exam: +S1, +S2 - GI/Abdominal Exam GI & Abdominal Exam: Tenderness - Neurological Exam Neurological Exam: Alert, Awake - Skin Skin Exam: Intact, Normal Color Assessment and Plan - Assessment and Plan (Free Text) Assessment: 71F w/ hx of peritonitis and lower abdominal abscess -50cc's of purulent fluid drained by IR -Continue Abx as per ID -No acute surgical intervention needed at this present time -Dw Dr. Garzon
--- NOTE | 2016-11-14 18:44 | CARD ---
APPROVED REPORT EKG Measurement Heart [id number] ID [id number] <Conclusion> Sinus tachycardia Minimal voltage criteria for LVH, may be normal variant Borderline ECG
--- NOTE | 2016-11-14 19:16 | CP.PCM.PN ---
Subjective - Date & Time of Evaluation Date of Evaluation: 11/14/16 Time of Evaluation: 10:00 - Subjective Subjective: S/P ASPIRATION ABSCESS IV RX IN PROGRESS Objective - Vital Signs/Intake and Output Vital Signs (last 24 hours): Temp Pulse Resp BP Pulse Ox 98.2 F 86 20 151/83 H 96 11/14/16 16:00 11/14/16 16:00 11/14/16 16:00 11/14/16 16:00 11/14/16 16:00 Intake and Output: 11/14/16 11/15/16 18:59 06:59 Intake Total 250 Balance 250 - Medications Medications: Current Medications Acetaminophen (Tylenol 325mg Tab) 650 mg PO Q6 PRN PRN Reason: temp > 99.5 Last Admin: 11/14/16 14:52 Dose: 650 mg Epoetin Mik (Procrit) 10,000 unit IV [facility] [place] Last Admin: 11/13/16 11:00 Dose: Not Given Dextrose/Sodium Chloride (Dextrose 5%/0.45% Ns 1000 Ml) 1,000 mls @ 50 mls/hr IV .Q20H [facility] Last Admin: 11/14/16 14:00 Dose: 50 mls/hr Meropenem 500 mg/ Sodium (Chloride) 100 mls @ 100 mls/hr IVPB Q12H [facility] Last Admin: 11/14/16 11:33 Dose: 100 mls/hr Gentamicin Sulfate/Sodium Chloride (Gentamicin Iv 80 Mg Premix) 80 mg in 100 mls @ 100 mls/hr IVPB MWF [facility] Last Admin: 11/13/16 08:19 Dose: 100 mls/hr Metoclopramide HCl (Reglan) 10 mg IVP ACLD [facility] Last Admin: 11/14/16 17:21 Dose: 10 mg Nitroglycerin (Nitrostat Sl Tab) 0.4 mg SL Q15M PRN PRN Reason: chest pain - Labs Labs: 11/14/16 08:16 11/14/16 08:16 PT 12.9 SECONDS (9.7-12.2) H 11/11/16 13:20 INR 1.1 11/11/16 13:20 APTT 50 SECONDS (21-34) H D 11/13/16 14:11 Assessment and Plan (1) ESRD (end stage renal disease) Status: Acute (2) Intra-abdominal abscess Status: Acute
--- NOTE | 2016-11-14 20:25 | CP.PCM.PN ---
Subjective - Date & Time of Evaluation Date of Evaluation: 11/14/16 Time of Evaluation: 20:23 - Subjective Subjective: Successful drainage of approx 50 ml purulent fluid from anterior abdom wall, L side. Pt more drowsy today than yesterday but more comfortable. VS stable. Objective - Vital Signs/Intake and Output Vital Signs (last 24 hours): Temp Pulse Resp BP Pulse Ox 98.2 F 86 20 151/83 H 96 11/14/16 16:00 11/14/16 16:00 11/14/16 16:00 11/14/16 16:00 11/14/16 16:00 Intake and Output: 11/14/16 11/15/16 18:59 06:59 Intake Total 250 Balance 250 - Medications Medications: Current Medications Acetaminophen (Tylenol 325mg Tab) 650 mg PO Q6 PRN PRN Reason: temp > 99.5 Last Admin: 11/14/16 14:52 Dose: 650 mg Epoetin Mik (Procrit) 10,000 unit IV F [facility] Last Admin: 11/13/16 11:00 Dose: Not Given Dextrose/Sodium Chloride (Dextrose 5%/0.45% Ns 1000 Ml) 1,000 mls @ 50 mls/hr IV .Q20H [facility] Last Admin: 11/14/16 14:00 Dose: 50 mls/hr Meropenem 500 mg/ Sodium (Chloride) 100 mls @ 100 mls/hr IVPB Q12H [facility] Last Admin: 11/14/16 11:33 Dose: 100 mls/hr Gentamicin Sulfate/Sodium Chloride (Gentamicin Iv 80 Mg Premix) 80 mg in 100 mls @ 100 mls/hr IVPB MWF [facility] Last Admin: 11/13/16 08:19 Dose: 100 mls/hr Metoclopramide HCl (Reglan) 10 mg IVP ACLD [facility] Last Admin: 11/14/16 17:21 Dose: 10 mg Nitroglycerin (Nitrostat Sl Tab) 0.4 mg SL Q15M PRN PRN Reason: chest pain - Labs Labs: 11/14/16 08:16 11/14/16 08:16 PT 12.9 SECONDS (9.7-12.2) H 11/11/16 13:20 INR 1.1 11/11/16 13:20 APTT 50 SECONDS (21-34) H D 11/13/16 14:11 - Constitutional Appears: No Acute Distress (appears sleepy, prob from anesthesia) - Head Exam Head Exam: NORMAL INSPECTION, NORMOCEPHALIC - Eye Exam Eye Exam: Normal appearance Pupil Exam: NORMAL ACCOMODATION - ENT Exam ENT Exam: Mucous Membranes Moist, Normal Exam - Neck Exam Neck Exam: Normal Inspection - Respiratory Exam Respiratory Exam: Clear to Ausculation Bilateral, NORMAL BREATHING PATTERN - Cardiovascular Exam Cardiovascular Exam: REGULAR RHYTHM - GI/Abdominal Exam GI & Abdominal Exam: Soft (slight tenderness at operative site, but not as tender as last night) - Rectal Exam Rectal Exam: Deferred - Extremities Exam Extremities Exam: Normal Inspection, Pedal Edema (slight) - Back Exam Back Exam: NORMAL INSPECTION - Neurological Exam Neurological Exam: Awake, CN II-XII Intact, Oriented x3 Neuro motor strength exam: Left Upper Extremity: 3, Right Upper Extremity: 3, Left Lower Extremity: 3, Right Lower Extremity: 3 - Psychiatric Exam Psychiatric exam: Flat Affect, Normal Affect, Normal Mood - Skin Skin Exam: Dry, Intact, Normal Color, Warm Assessment and Plan (1) Anemia of chronic disease Assessment & Plan: hgb stabilizing aat low 9s Status: Chronic (2) Gastroparesis Assessment & Plan: improved with promotility agent Status: Acute (3) Intra-abdominal abscess Assessment & Plan: resolving, s/p drainage Status: Acute (4) ESRD (end stage renal disease) Assessment & Plan: continue current HD; erytropoietin, transfusion all done. Status: Acute (5) Generalized weakness Assessment & Plan: 2ndry to debility Status: Acute
[2016-11-15] MEDS: Meropenem 500 MG in Sodium Chloride 0.9% 100 ML IVPB SCH ×2 (00:36→13:30)
[2016-11-15] MEDS: Gentamicin 80 mg in 0.9% NS 80 MG/100 ML BAG IVPB SCH (08:12)
[2016-11-15] MEDS: Epoetin Alfa 10,000 unit/ml Dialysis IV SCH (09:37)
--- NOTE | 2016-11-15 12:39 | CP.PCM.PN ---
Subjective - Date & Time of Evaluation Date of Evaluation: 11/15/16 Time of Evaluation: 12:36 - Subjective Subjective: Seen at dialysis - to UF 1500ml More alert; more comfortable Afebrile, no new complaints Intra-abdominal fluid aspiration with GPC, GNRs IV ABs as per ID Leukocytosis slowly improving Objective - Vital Signs/Intake and Output Vital Signs (last 24 hours): Temp Pulse Resp BP Pulse Ox 98 F 102 H 18 146/80 99 11/15/16 12:05 11/15/16 12:05 11/15/16 12:05 11/15/16 12:05 11/15/16 12:05 Intake and Output: 11/15/16 11/15/16 06:59 18:59 Intake Total 400 Balance 400 - Medications Medications: Current Medications Acetaminophen (Tylenol 325mg Tab) 650 mg PO Q6 PRN PRN Reason: temp > 99.5 Last Admin: 11/14/16 21:23 Dose: 650 mg Epoetin Mik (Procrit) 10,000 unit IV MWF [facility] Last Admin: 11/15/16 09:37 Dose: 10,000 unit Heparin Sodium (Porcine) (Heparin) 4,100 units IVP MWF [facility] Last Admin: 11/15/16 11:42 Dose: 4,100 units Meropenem 500 mg/ Sodium (Chloride) 100 mls @ 100 mls/hr IVPB Q12H [facility] Last Admin: 11/15/16 00:36 Dose: 100 mls/hr Gentamicin Sulfate/Sodium Chloride (Gentamicin Iv 80 Mg Premix) 80 mg in 100 mls @ 100 mls/hr IVPB MWF [facility] Last Admin: 11/15/16 08:12 Dose: 100 mls/hr Metoclopramide HCl (Reglan) 10 mg IVP ACLD [facility] Last Admin: 11/14/16 17:21 Dose: 10 mg Nitroglycerin (Nitrostat Sl Tab) 0.4 mg SL Q15M PRN PRN Reason: chest pain - Labs Labs: 11/14/16 08:16 11/14/16 08:16 PT 12.9 SECONDS (9.7-12.2) H 11/11/16 13:20 INR 1.1 11/11/16 13:20 APTT 50 SECONDS (21-34) H D 11/13/16 14:11 - Constitutional Appears: No Acute Distress, Chronically Ill - Head Exam Head Exam: ATRAUMATIC, NORMAL INSPECTION - Eye Exam Eye Exam: EOMI, Normal appearance - Neck Exam Neck Exam: Normal Inspection. absent: Tenderness - Respiratory Exam Respiratory Exam: Clear to Ausculation Bilateral, NORMAL BREATHING PATTERN - Cardiovascular Exam Cardiovascular Exam: REGULAR RHYTHM, +S1 - GI/Abdominal Exam GI & Abdominal Exam: Soft, Tenderness - Extremities Exam Extremities Exam: Normal Inspection. absent: Pedal Edema, Tenderness - Neurological Exam Neurological Exam: Alert, CN II-XII Intact - Skin Skin Exam: Dry, Warm Assessment and Plan (1) Type 2 diabetes mellitus with diabetic nephropathy Status: Acute (2) ESRD (end stage renal disease) Status: Acute (3) Intra-abdominal abscess Status: Acute - Assessment and Plan (Free Text) Plan: IV ABs as per ID Dialysis MWF Will need HD placement upon discharge Etiology of increased LFTs unclear- will repeat chemistries
--- NOTE | 2016-11-15 18:28 | CP.PCM.PN ---
Subjective - Date & Time of Evaluation Date of Evaluation: 11/15/16 Time of Evaluation: 08:00 - Subjective Subjective: cultures pending iv rx in progress Objective - Vital Signs/Intake and Output Vital Signs (last 24 hours): Temp Pulse Resp BP Pulse Ox 99.5 F 114 H 22 153/83 H 98 11/15/16 15:45 11/15/16 15:45 11/15/16 15:45 11/15/16 15:45 11/15/16 15:45 Intake and Output: 11/15/16 11/15/16 06:59 18:59 Intake Total 400 500 Balance 400 500 - Medications Medications: Current Medications Acetaminophen (Tylenol 325mg Tab) 650 mg PO Q6 PRN PRN Reason: temp > 99.5 Last Admin: 11/14/16 21:23 Dose: 650 mg Epoetin Mik (Procrit) 10,000 unit IV [facility] [place] Last Admin: 11/15/16 09:37 Dose: 10,000 unit Heparin Sodium (Porcine) (Heparin) 4,100 units IVP [facility] [place] Last Admin: 11/15/16 11:42 Dose: 4,100 units Meropenem 500 mg/ Sodium (Chloride) 100 mls @ 100 mls/hr IVPB Q12H [facility] Last Admin: 11/15/16 13:30 Dose: 100 mls/hr Gentamicin Sulfate/Sodium Chloride (Gentamicin Iv 80 Mg Premix) 80 mg in 100 mls @ 100 mls/hr IVPB [facility] [place] Last Admin: 11/15/16 08:12 Dose: 100 mls/hr Metoclopramide HCl (Reglan) 10 mg IVP ACLD [facility] Last Admin: 11/15/16 17:30 Dose: 10 mg Nitroglycerin (Nitrostat Sl Tab) 0.4 mg SL Q15M PRN PRN Reason: chest pain - Labs Labs: 11/14/16 08:16 11/14/16 08:16 PT 12.9 SECONDS (9.7-12.2) H 11/11/16 13:20 INR 1.1 11/11/16 13:20 APTT 50 SECONDS (21-34) H D 11/13/16 14:11 - Constitutional Appears: Non-toxic, Chronically Ill - Head Exam Head Exam: NORMOCEPHALIC - Eye Exam Eye Exam: PERRL. absent: Scleral icterus - ENT Exam ENT Exam: Mucous Membranes Dry - Neck Exam Neck Exam: absent: Lymphadenopathy - Respiratory Exam Respiratory Exam: Decreased Breath Sounds - Cardiovascular Exam Cardiovascular Exam: REGULAR RHYTHM, +S1, +S2 - GI/Abdominal Exam GI & Abdominal Exam: Distended, Soft. absent: Tenderness - Rectal Exam Rectal Exam: Deferred - Exam Exam: NORMAL INSPECTION - Extremities Exam Extremities Exam: absent: Pedal Edema - Back Exam Back Exam: absent: CVA tenderness (L), CVA tenderness (R) - Neurological Exam Neurological Exam: Alert, Awake, Oriented x3 Assessment and Plan (1) ESRD (end stage renal disease) Status: Acute (2) Intra-abdominal abscess Status: Acute
[2016-11-15] MEDS: Dextrose 5%/0.45% NS 1,000 ML IV SCH (19:45)
--- NOTE | 2016-11-15 20:49 | CP.PCM.PN ---
Subjective - Date & Time of Evaluation Date of Evaluation: 11/15/16 Time of Evaluation: 20:48 - Subjective Subjective: Pt sleeping comfortably in bed. Has not asked for pain medication today, and anterior abdom wall not as tender. Awaiting culture and will adjust abx as necessary. > Will ask ID how long to give IV abx. Objective - Vital Signs/Intake and Output Vital Signs (last 24 hours): Temp Pulse Resp BP Pulse Ox 99.5 F 112 H 22 153/83 H 98 11/15/16 15:45 11/15/16 16:00 11/15/16 15:45 11/15/16 15:45 11/15/16 15:45 Intake and Output: 11/15/16 11/16/16 18:59 06:59 Intake Total 500 Balance 500 - Medications Medications: Current Medications Acetaminophen (Tylenol 325mg Tab) 650 mg PO Q6 PRN PRN Reason: temp > 99.5 Last Admin: 11/14/16 21:23 Dose: 650 mg Epoetin Mik (Procrit) 10,000 unit IV MWF [facility] Last Admin: 11/15/16 09:37 Dose: 10,000 unit Heparin Sodium (Porcine) (Heparin) 4,100 units IVP MWF [facility] Last Admin: 11/15/16 11:42 Dose: 4,100 units Meropenem 500 mg/ Sodium (Chloride) 100 mls @ 100 mls/hr IVPB Q12H [facility] Last Admin: 11/15/16 13:30 Dose: 100 mls/hr Gentamicin Sulfate/Sodium Chloride (Gentamicin Iv 80 Mg Premix) 80 mg in 100 mls @ 100 mls/hr IVPB MWF [facility] Last Admin: 11/15/16 08:12 Dose: 100 mls/hr Metoclopramide HCl (Reglan) 10 mg IVP ACLD [facility] Last Admin: 11/15/16 17:30 Dose: 10 mg Nitroglycerin (Nitrostat Sl Tab) 0.4 mg SL Q15M PRN PRN Reason: chest pain - Labs Labs: 11/14/16 08:16 11/14/16 08:16 PT 12.9 SECONDS (9.7-12.2) H 11/11/16 13:20 INR 1.1 11/11/16 13:20 APTT 50 SECONDS (21-34) H D 11/13/16 14:11 - Constitutional Appears: No Acute Distress - Head Exam Head Exam: NORMAL INSPECTION, NORMOCEPHALIC - Eye Exam Eye Exam: EOMI, Normal appearance Pupil Exam: NORMAL ACCOMODATION, PERRL - ENT Exam ENT Exam: Mucous Membranes Moist, Normal Exam - Neck Exam Neck Exam: Normal Inspection - Respiratory Exam Respiratory Exam: Decreased Breath Sounds, Clear to Ausculation Bilateral - Cardiovascular Exam Cardiovascular Exam: REGULAR RHYTHM - GI/Abdominal Exam GI & Abdominal Exam: Soft, Diminished Bowel Sounds - Rectal Exam Rectal Exam: Deferred - Back Exam Back Exam: NORMAL INSPECTION - Neurological Exam Neurological Exam: Alert Neuro motor strength exam: Left Upper Extremity: 3, Right Upper Extremity: 3, Left Lower Extremity: 3, Right Lower Extremity: 3 - Psychiatric Exam Psychiatric exam: Flat Affect, Normal Affect - Skin Skin Exam: Dry, Intact, Normal Color, Warm Assessment and Plan (1) Anemia of chronic disease Assessment & Plan: stable after transfusion Status: Chronic (2) Gastroparesis Assessment & Plan: will switch to po and continue Status: Resolved (3) Intra-abdominal abscess Assessment & Plan: s/p drainage Status: Resolved (4) ESRD (end stage renal disease) Assessment & Plan: continue current mgt Status: Acute (5) Generalized weakness Assessment & Plan: plan for MARIO after pt stabilized Status: Acute
[2016-11-16] MEDS: Meropenem 500 MG in Sodium Chloride 0.9% 100 ML IVPB SCH ×2 (00:18→11:32)
[2016-11-16 08:46] LABS: POTASSIUM 3.4 mmol/L (3.6-5.2)
[2016-11-16 08:48] LABS: ALB/GLOB RATIO 0.6 (1.0-2.1); BILIRUBIN,TOTAL 1.2 mg/dL (0.2-1.3)
[2016-11-16 08:49] LABS: CALCIUM 9.2 mg/dl (8.6-10.4); PHOSPHOROUS 3.8 mg/dL (2.5-4.5)
[2016-11-16 09:16] LABS: HEMATOCRIT 28.6 % (34.0-47.0); MEAN CELL VOLUME 87.9 fL (81.0-99.0); MEAN CORPUSCULAR HEMOGLOBIN 28.1 pg (27.0-31.0); MEAN CORPUSCULAR HGB CONC 31.9 g/dL (33.0-37.0); MEAN PLATELET VOLUME 8.4 fL (7.2-11.7); RED CELL DISTRIBUTION WIDTH 16.4 % (11.5-14.5); WHITE BLOOD COUNT 11.1 K/uL (4.8-10.8)
--- NOTE | 2016-11-16 10:10 | CP.PCM.PN ---
Subjective - Date & Time of Evaluation Date of Evaluation: 11/16/16 Time of Evaluation: 10:08 - Subjective Subjective: pt seen and examined feels ok some abdominal pain no nausea or vomiting afebrile tolerating diet had hd yesterday ROS- as per HPI, other than that 10 point ROS negative Objective - Vital Signs/Intake and Output Vital Signs (last 24 hours): Temp Pulse Resp BP Pulse Ox 98.4 F 93 H 18 149/76 100 11/16/16 07:22 11/16/16 07:22 11/16/16 07:22 11/16/16 07:22 11/16/16 07:22 Intake and Output: 11/16/16 11/16/16 06:59 18:59 Intake Total 640 Balance 640 - Medications Medications: Current Medications Acetaminophen (Tylenol 325mg Tab) 650 mg PO Q6 PRN PRN Reason: temp > 99.5 Last Admin: 11/14/16 21:23 Dose: 650 mg Epoetin Mik (Procrit) 10,000 unit IV MWF [facility] Last Admin: 11/15/16 09:37 Dose: 10,000 unit Heparin Sodium (Porcine) (Heparin) 4,100 units IVP MWF [facility] Last Admin: 11/15/16 11:42 Dose: 4,100 units Meropenem 500 mg/ Sodium (Chloride) 100 mls @ 100 mls/hr IVPB Q12H [facility] Last Admin: 11/16/16 00:18 Dose: 100 mls/hr Gentamicin Sulfate/Sodium Chloride (Gentamicin Iv 80 Mg Premix) 80 mg in 100 mls @ 100 mls/hr IVPB MWF [facility] Last Admin: 11/15/16 08:12 Dose: 100 mls/hr Metoclopramide HCl (Reglan) 10 mg IVP ACLD [facility] Last Admin: 11/15/16 17:30 Dose: 10 mg Nitroglycerin (Nitrostat Sl Tab) 0.4 mg SL Q15M PRN PRN Reason: chest pain - Labs Labs: 11/16/16 08:15 11/16/16 08:15 PT 12.9 SECONDS (9.7-12.2) H 11/11/16 13:20 INR 1.1 11/11/16 13:20 APTT 50 SECONDS (21-34) H D 11/13/16 14:11 - Constitutional Appears: Non-toxic, Chronically Ill - Head Exam Head Exam: ATRAUMATIC, NORMOCEPHALIC - Eye Exam Eye Exam: EOMI Pupil Exam: PERRL - ENT Exam ENT Exam: Mucous Membranes Moist - Respiratory Exam Respiratory Exam: Clear to Ausculation Bilateral. absent: Rhonchi, Wheezes - Cardiovascular Exam Cardiovascular Exam: REGULAR RHYTHM, +S1, +S2 - GI/Abdominal Exam GI & Abdominal Exam: Soft, Tenderness - Extremities Exam Extremities Exam: Full ROM. absent: Joint Swelling, Pedal Edema - Neurological Exam Neurological Exam: Alert, Awake, Oriented x3 - Psychiatric Exam Psychiatric exam: Normal Affect, Normal Mood - Skin Skin Exam: Dry, Warm Assessment and Plan (1) ESRD (end stage renal disease) Status: Acute (2) Gastroparesis Status: Acute (3) Intra-abdominal abscess Status: Acute (4) Type 2 diabetes mellitus with diabetic nephropathy Status: Acute (5) Anemia of chronic disease Status: Chronic - Assessment and Plan (Free Text) Plan: hd friday d/c iv fluids Antibiotics as per ID
[2016-11-16] MEDS: Lactobacillus Acidophilus 500 MU Cap PO SCH (18:19)
[2016-11-17] MEDS: Meropenem 500 MG in Sodium Chloride 0.9% 100 ML IVPB SCH ×2 (00:20→11:03)
[2016-11-17] MEDS: Lactobacillus Acidophilus 500 MU Cap PO SCH ×2 (09:50→20:28)
--- NOTE | 2016-11-17 15:59 | CP.PCM.PN ---
Subjective - Date & Time of Evaluation Date of Evaluation: 11/17/16 Time of Evaluation: 09:00 - Subjective Subjective: CULTURES REVIEWED ENTEROCOCCUS AND KLEBS FROM ABSCESS REMAINS TENDER IV RX ADJUSTED Objective - Vital Signs/Intake and Output Vital Signs (last 24 hours): Temp Pulse Resp BP Pulse Ox 98.1 F 85 20 157/80 H 100 11/17/16 08:45 11/17/16 14:08 11/17/16 08:45 11/17/16 08:45 11/17/16 08:45 Intake and Output: 11/17/16 11/17/16 06:59 18:59 Intake Total 450 Balance 450 - Medications Medications: Current Medications Acetaminophen (Tylenol 325mg Tab) 650 mg PO Q6 PRN PRN Reason: temp > 99.5 Last Admin: 11/17/16 10:58 Dose: 650 mg Epoetin Mik (Procrit) 10,000 unit [place] [facility] Last Admin: 11/15/16 09:37 Dose: 10,000 unit Heparin Sodium (Porcine) (Heparin) 4,100 units IVP [facility] Last Admin: 11/15/16 11:42 Dose: 4,100 units Gentamicin Sulfate/Sodium Chloride (Gentamicin Iv 80 Mg Premix) 80 mg in 100 mls @ 100 mls/hr [place] [facility] Last Admin: 11/15/16 08:12 Dose: 100 mls/hr Vancomycin HCl 1,000 mg/ (Sodium Chloride) 250 mls @ 166.6 mls/hr IVPB [facility] Vancomycin HCl 1 gm/ Sodium (Chloride) 250 mls @ 166.7 mls/hr IVPB [facility] Stop: 11/17/16 17:26 Lactobacillus Acidophilus (Bacid Acidophilus) 1 cap PO BID [facility] Last Admin: 11/17/16 09:50 Dose: 1 cap Metoclopramide HCl (Reglan) 10 mg IVP ACLD [facility] Last Admin: 11/17/16 11:01 Dose: 10 mg Nitroglycerin (Nitrostat Sl Tab) 0.4 mg SL Q15M PRN PRN Reason: chest pain - Labs Labs: 11/16/16 08:15 11/16/16 08:15 PT 12.9 SECONDS (9.7-12.2) H 11/11/16 13:20 INR 1.1 11/11/16 13:20 APTT 50 SECONDS (21-34) H D 11/13/16 14:11 Assessment and Plan (1) ESRD (end stage renal disease) Status: Acute (2) Intra-abdominal abscess Status: Acute
[2016-11-17] MEDS ORDERED: Vancomycin 1 gm/NS 200 ml 1 GM/200 ML BAG IVPB SCH (17:00)
[2016-11-17] MEDS: Cefepime IV 1 gm in Dextrose 1 GM/50 ML BAG IVPB SCH (20:28)
--- NOTE | 2016-11-17 23:40 | CP.PCM.PN ---
Subjective - Date & Time of Evaluation Date of Evaluation: 11/16/16 Time of Evaluation: 17:45 - Subjective Subjective: Spoke with pt's son regarding additional history of patient since she is new to me. [place] was C. [place] [facility] [facility]. Pt also had peritonitis at the time, which was one of her discharge diagnoses. Family requesting if accu-checks for RBS should be considered. Though no episodes of diarrhea, family wanted to be reassured C. diff colitis did not return. Ok'd pt's family requests. Clinically, pt in less pain and not even asking for acetaminophen for pain. Objective - Vital Signs/Intake and Output Vital Signs (last 24 hours): Temp Pulse Resp BP Pulse Ox 97.4 F L 95 H 20 154/85 H 100 11/17/16 15:30 11/17/16 16:00 11/17/16 15:30 11/17/16 15:30 11/17/16 15:30 Intake and Output: 11/17/16 11/18/16 18:59 06:59 Intake Total 450 Output Total 1 Balance 450 -1 - Medications Medications: Current Medications Acetaminophen (Tylenol 325mg Tab) 650 mg PO Q6 PRN PRN Reason: temp > 99.5 Last Admin: 11/17/16 10:58 Dose: 650 mg Epoetin Mik (Procrit) 10,000 unit IV [facility] [place] Last Admin: 11/15/16 09:37 Dose: 10,000 unit Heparin Sodium (Porcine) (Heparin) 4,100 units IVP [facility] [place] Last Admin: 11/15/16 11:42 Dose: 4,100 units Gentamicin Sulfate/Sodium Chloride (Gentamicin Iv 80 Mg Premix) 80 mg in 100 mls @ 100 mls/hr IVPB MWF [facility] Last Admin: 11/15/16 08:12 Dose: 100 mls/hr Vancomycin/Sodium Chloride (Vancocin) 1 gm in 200 mls @ 133.333 mls/hr IVPB MWF [facility] Stop: 11/23/16 09:01 Vancomycin/Sodium Chloride (Vancocin) 1 gm in 200 mls @ 133.333 mls/hr IVPB STAT [facility] Stop: 11/22/16 17:01 Cefepime HCl (Maxipime Iv 1 Gm Premix) 1 gm in 50 mls @ 100 mls/hr IVPB Q24H [facility] Last Admin: 11/17/16 20:28 Dose: Not Given Lactobacillus Acidophilus (Bacid Acidophilus) 1 cap PO BID [facility] Last Admin: 11/17/16 20:28 Dose: 1 cap Metoclopramide HCl (Reglan) 10 mg PO ACLD [facility] Last Admin: 11/17/16 20:28 Dose: 10 mg Nitroglycerin (Nitrostat Sl Tab) 0.4 mg SL Q15M PRN PRN Reason: chest pain - Labs Labs: 11/16/16 08:15 11/16/16 08:15 PT 12.9 SECONDS (9.7-12.2) H 11/11/16 13:20 INR 1.1 11/11/16 13:20 APTT 50 SECONDS (21-34) H D 11/13/16 14:11 - Constitutional Appears: No Acute Distress - Head Exam Head Exam: NORMAL INSPECTION, NORMOCEPHALIC - Eye Exam Eye Exam: EOMI, Normal appearance Pupil Exam: NORMAL ACCOMODATION - ENT Exam ENT Exam: Mucous Membranes Moist, Normal Exam - Neck Exam Neck Exam: Normal Inspection - Respiratory Exam Respiratory Exam: Clear to Ausculation Bilateral, NORMAL BREATHING PATTERN - Cardiovascular Exam Cardiovascular Exam: REGULAR RHYTHM - GI/Abdominal Exam GI & Abdominal Exam: Normal Bowel Sounds - Rectal Exam Rectal Exam: Deferred - Extremities Exam Extremities Exam: Full ROM, Normal Capillary Refill, Normal Inspection - Back Exam Back Exam: Full ROM, NORMAL INSPECTION - Neurological Exam Neurological Exam: Alert, Awake, CN II-XII Intact, Normal Gait, Oriented x3 Assessment and Plan (1) Anemia of chronic disease Assessment & Plan: improved, no deterioration Status: Chronic (2) Gastroparesis Assessment & Plan: will continue metoclopramide outpatient but add cogentin Status: Resolved (3) Intra-abdominal abscess Status: Resolved (4) ESRD (end stage renal disease) Assessment & Plan: continue HD via permacath Status: Acute (5) Generalized weakness Status: Acute
--- NOTE | 2016-11-17 23:48 | CP.PCM.PN ---
Subjective - Date & Time of Evaluation Date of Evaluation: 11/17/16 Time of Evaluation: 19:00 - Subjective Subjective: Pt's IV abx adjusted to accommodate results of peritoneal abscess culture results. Looks like short-term IV abx may be necessary for pt, and nursing having trouble getting IV access despite 3 tiries already. Had placed a call to ID and [facility], the former to make them aware, and the 2nd to request permacath access for IV abx use x 1. Nephro refused, and my suggested contingency plan to get IR to put in PICC line tomorrow so permacath sterility won't be compromised. > Clinical picture improved since abscess drainage. Objective - Vital Signs/Intake and Output Vital Signs (last 24 hours): Temp Pulse Resp BP Pulse Ox 97.4 F L 95 H 20 154/85 H 100 11/17/16 15:30 11/17/16 16:00 11/17/16 15:30 11/17/16 15:30 11/17/16 15:30 Intake and Output: 11/17/16 11/18/16 18:59 06:59 Intake Total 450 Output Total 1 Balance 450 -1 - Medications Medications: Current Medications Acetaminophen (Tylenol 325mg Tab) 650 mg PO Q6 PRN PRN Reason: temp > 99.5 Last Admin: 11/17/16 10:58 Dose: 650 mg Epoetin Mik (Procrit) 10,000 unit IV [facility] [place] Last Admin: 11/15/16 09:37 Dose: 10,000 unit Heparin Sodium (Porcine) (Heparin) 4,100 units IVP [facility] [place] Last Admin: 11/15/16 11:42 Dose: 4,100 units Gentamicin Sulfate/Sodium Chloride (Gentamicin Iv 80 Mg Premix) 80 mg in 100 mls @ 100 mls/hr IVPB F [facility] Last Admin: 11/15/16 08:12 Dose: 100 mls/hr Vancomycin/Sodium Chloride (Vancocin) 1 gm in 200 mls @ 133.333 mls/hr IVPB MWF [facility] Stop: 11/23/16 09:01 Vancomycin/Sodium Chloride (Vancocin) 1 gm in 200 mls @ 133.333 mls/hr IVPB STAT [facility] Stop: 11/22/16 17:01 Cefepime HCl (Maxipime Iv 1 Gm Premix) 1 gm in 50 mls @ 100 mls/hr IVPB Q24H [facility] Last Admin: 11/17/16 20:28 Dose: Not Given Lactobacillus Acidophilus (Bacid Acidophilus) 1 cap PO BID [facility] Last Admin: 11/17/16 20:28 Dose: 1 cap Metoclopramide HCl (Reglan) 10 mg PO ACLD [facility] Last Admin: 11/17/16 20:28 Dose: 10 mg Nitroglycerin (Nitrostat Sl Tab) 0.4 mg SL Q15M PRN PRN Reason: chest pain - Labs Labs: 11/16/16 08:15 11/16/16 08:15 PT 12.9 SECONDS (9.7-12.2) H 11/11/16 13:20 INR 1.1 11/11/16 13:20 APTT 50 SECONDS (21-34) H D 11/13/16 14:11 - Constitutional Appears: No Acute Distress - Head Exam Head Exam: NORMAL INSPECTION, NORMOCEPHALIC - Eye Exam Eye Exam: Normal appearance Pupil Exam: NORMAL ACCOMODATION, PERRL - ENT Exam ENT Exam: Mucous Membranes Moist, Normal Exam - Neck Exam Neck Exam: Normal Inspection - Respiratory Exam Respiratory Exam: Clear to Ausculation Bilateral - Cardiovascular Exam Cardiovascular Exam: REGULAR RHYTHM - GI/Abdominal Exam GI & Abdominal Exam: Normal Bowel Sounds - Rectal Exam Rectal Exam: Deferred - Extremities Exam Extremities Exam: Full ROM, Normal Inspection - Back Exam Back Exam: NORMAL INSPECTION - Neurological Exam Neurological Exam: Alert, CN II-XII Intact, Oriented x3 Neuro motor strength exam: Left Upper Extremity: 3, Right Upper Extremity: 3, Left Lower Extremity: 3, Right Lower Extremity: 3 - Psychiatric Exam Psychiatric exam: Flat Affect, Normal Affect, Normal Mood - Skin Skin Exam: Dry, Intact, Normal Color, Warm Assessment and Plan (1) Anemia of chronic disease Assessment & Plan: stable, no evidence of blood loss Status: Chronic (2) Gastroparesis Assessment & Plan: improved Status: Acute (3) Intra-abdominal abscess Status: Resolved (4) ESRD (end stage renal disease) Status: Acute (5) Generalized weakness Status: Acute
[2016-11-18] MEDS: Lactobacillus Acidophilus 500 MU Cap PO SCH ×2 (09:24→19:00)
[2016-11-18] MEDS: Gentamicin 80 mg in 0.9% NS 80 MG/100 ML BAG IVPB SCH (09:38)
[2016-11-18] MEDS: Vancomycin 1 gm/NS 200 ml 1 GM/200 ML BAG IVPB SCH (09:39)
--- NOTE | 2016-11-18 11:39 | PCM.SURG1 ---
Surgeon's Initial Post Op Note - Surgeon's Notes Surgeon: Dylan Cruz MD Market Development Manager: NONE Type of Anesthesia: Local Pre-Operative Diagnosis: Abscess Operative Findings: Small basilic vein. Small brachial vein. Post-Operative Diagnosis: Abscess Operation Performed: Left arm single lumen picc placement, 45 cm. Tip in SVC. Specimen/Specimens Removed: None Estimated Blood Loss: EBL {In ML}: 2 Blood Products Given: N/A Drains Used: No Drains Post-Op Condition: Fair Date of Surgery/Procedure: 11/18/16 Time of Surgery/Procedure: 11:30
--- NOTE | 2016-11-18 11:49 | RAD ---
PROCEDURE: Date of procedure: 11/18/2016 Procedure: 1. Placement of a left arm PICC with ultrasound and fluoroscopic guidance, CPT 50949 2. PICC tip confirmation with spot radiograph and is in the superior vena cava Medications: 1 percent lidocaine Total Fluoro time: 52.5 seconds Radiation: [id number] EBL: 2 cc HISTORY: Abscess requiring long-term IV antibiotics TECHNIQUE: Following informed consent and procedure time-out, the patient placed supine on the interventional table and the left arm prepped and draped in the usual sterile fashion. Ultrasound showed a patent and compressible left brachial vein. After the skin was anesthetized with lidocaine, the brachial vein was accessed with micro micropuncture technique using ultrasound guidance. A guidewire was then advanced under fluoroscopic guidance into the superior vena cava. An image documenting ultrasound guidance for vascular access was permanently saved. The length of a single-lumen 5 [place] PICC was trimmed to 45 cm and advanced through a peel-away sheath. The PICC was position with tip of PICC confirm a spot radiograph the superior vena cava. The PICC was secured to the patient's skin. The PICC was flushed. A biopatch and sterile dressing was applied. IMPRESSION: Placement of a single-lumen 5 [place] PICC left brachial vein trimmed to 45 cm. The tip of the PICC is confirmed with spot radiograph and is in the superior vena cava.
--- NOTE | 2016-11-18 11:52 | US ---
PROCEDURE: Date of procedure: 11/18/2016 Procedure: Ultrasound guidance for vascular access HISTORY: Abscess requiring long-term IV antibiotics TECHNIQUE: Following informed consent and procedure time-out, the patient placed supine on the interventional table and the left arm prepped and draped in the usual sterile fashion. Ultrasound showed a patent and compressible left brachial vein. After the skin was anesthetized with lidocaine, the brachial vein was accessed with micro micropuncture technique using ultrasound guidance. An image documenting ultrasound guidance for vascular access was permanently saved. IMPRESSION: Ultrasound guidance for vascular access for placement of PICC.
--- NOTE | 2016-11-18 13:01 | CP.PCM.PN ---
Subjective - Date & Time of Evaluation Date of Evaluation: 11/18/16 Time of Evaluation: 12:59 - Subjective Subjective: s/p PICC insertion afebrile- on IV ABs for intra-abdominal abscess For dialysis now no new complaints feels better overall Objective - Vital Signs/Intake and Output Vital Signs (last 24 hours): Temp Pulse Resp BP Pulse Ox 99.1 F 106 H 20 151/82 H 98 11/18/16 04:15 11/18/16 04:15 11/18/16 04:15 11/18/16 04:15 11/18/16 04:15 Intake and Output: 11/18/16 11/18/16 06:59 18:59 Output Total 1 Balance -1 - Medications Medications: Current Medications Acetaminophen (Tylenol 325mg Tab) 650 mg PO Q6 PRN PRN Reason: temp > 99.5 Last Admin: 11/18/16 12:21 Dose: 650 mg Epoetin Mik (Procrit) 10,000 unit IV [facility] Last Admin: 11/15/16 09:37 Dose: 10,000 unit Heparin Sodium (Porcine) (Heparin) 4,100 units IVP [facility] Last Admin: 11/15/16 11:42 Dose: 4,100 units Gentamicin Sulfate/Sodium Chloride (Gentamicin Iv 80 Mg Premix) 80 mg in 100 mls @ 100 mls/hr IVPB [facility] Last Admin: 11/18/16 09:38 Dose: 100 mls/hr Vancomycin/Sodium Chloride (Vancocin) 1 gm in 200 mls @ 133.333 mls/hr IVPB [facility] Stop: 11/23/16 09:01 Last Admin: 11/18/16 09:39 Dose: 133.333 mls/hr Vancomycin/Sodium Chloride (Vancocin) 1 gm in 200 mls @ 133.333 mls/hr IVPB STAT [facility] Stop: 11/22/16 17:01 Cefepime HCl (Maxipime Iv 1 Gm Premix) 1 gm in 50 mls @ 100 mls/hr IVPB Q24H [facility] Last Admin: 11/17/16 20:28 Dose: Not Given Lactobacillus Acidophilus (Bacid Acidophilus) 1 cap PO BID [facility] Last Admin: 11/18/16 09:24 Dose: 1 cap Losartan Potassium (Cozaar) 50 mg PO DAILY [facility] Last Admin: 11/18/16 09:24 Dose: 50 mg Metoclopramide HCl (Reglan) 10 mg PO ACLD [facility] Last Admin: 11/18/16 12:28 Dose: 10 mg Nitroglycerin (Nitrostat Sl Tab) 0.4 mg SL Q15M PRN PRN Reason: chest pain - Labs Labs: 11/16/16 08:15 11/16/16 08:15 PT 12.9 SECONDS (9.7-12.2) H 11/11/16 13:20 INR 1.1 11/11/16 13:20 APTT 50 SECONDS (21-34) H D 11/13/16 14:11 - Constitutional Appears: No Acute Distress, Chronically Ill - Head Exam Head Exam: ATRAUMATIC, NORMAL INSPECTION - Eye Exam Eye Exam: EOMI. absent: Normal appearance - Neck Exam Neck Exam: Normal Inspection. absent: Tenderness - Respiratory Exam Respiratory Exam: Clear to Ausculation Bilateral, NORMAL BREATHING PATTERN - Cardiovascular Exam Cardiovascular Exam: REGULAR RHYTHM, +S1 - GI/Abdominal Exam GI & Abdominal Exam: Soft. absent: Tenderness - Extremities Exam Extremities Exam: Normal Inspection. absent: Tenderness - Neurological Exam Neurological Exam: Awake, CN II-XII Intact - Skin Skin Exam: Dry, Warm Assessment and Plan (1) Type 2 diabetes mellitus with diabetic nephropathy Status: Acute (2) ESRD (end stage renal disease) Status: Acute (3) Intra-abdominal abscess Status: Resolved - Assessment and Plan (Free Text) Plan: IV ABs Dialysis MWF Will need home ABs via PICC Same meds including EPO
[2016-11-18] MEDS: Epoetin Alfa 10,000 unit/ml Dialysis IV SCH (16:12)
--- NOTE | 2016-11-18 17:29 | CP.PCM.PN ---
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 Feels she has more strength also. Discussed her plans with me for discharge. Says that she was a little disappointed with [facility] since despite bringing up the issue with them, pt's anemia not addressed. WAs thinking about [facility] but wants to be where I can follow her. Advised pt we will do what we can to accommodate what is best for her. Objective - Vital Signs/Intake and Output Vital Signs (last 24 hours): Temp Pulse Resp BP Pulse Ox 97.9 F 100 H 16 135/80 100 11/18/16 14:20 11/18/16 14:20 11/18/16 14:20 11/18/16 15:30 11/18/16 14:20 Intake and Output: 11/18/16 11/18/16 06:59 18:59 Intake Total 550 Output Total 1 0 Balance -1 550 - Medications Medications: Current Medications Acetaminophen (Tylenol 325mg Tab) 650 mg PO Q6 PRN PRN Reason: temp > 99.5 Last Admin: 11/18/16 12:21 Dose: 650 mg Epoetin Mik (Procrit) 10,000 unit IV MWF [facility] Last Admin: 11/18/16 16:12 Dose: 10,000 unit Heparin Sodium (Porcine) (Heparin) 4,100 units IVP F [facility] Last Admin: 11/18/16 17:18 Dose: 4,100 units Gentamicin Sulfate/Sodium Chloride (Gentamicin Iv 80 Mg Premix) 80 mg in 100 mls @ 100 mls/hr IVPB MWF [facility] Last Admin: 11/18/16 09:38 Dose: 100 mls/hr Vancomycin/Sodium Chloride (Vancocin) 1 gm in 200 mls @ 133.333 mls/hr IVPB MWF [facility] Stop: 11/23/16 09:01 Last Admin: 11/18/16 09:39 Dose: 133.333 mls/hr Vancomycin/Sodium Chloride (Vancocin) 1 gm in 200 mls @ 133.333 mls/hr IVPB STAT [facility] Stop: 11/22/16 17:01 Cefepime HCl (Maxipime Iv 1 Gm Premix) 1 gm in 50 mls @ 100 mls/hr IVPB Q24H [facility] Last Admin: 11/17/16 20:28 Dose: Not Given Lactobacillus Acidophilus (Bacid Acidophilus) 1 cap PO BID [facility] Last Admin: 11/18/16 09:24 Dose: 1 cap Losartan Potassium (Cozaar) 50 mg PO DAILY [facility] Last Admin: 11/18/16 09:24 Dose: 50 mg Metoclopramide HCl (Reglan) 10 mg PO ACLD [facility] Last Admin: 11/18/16 12:28 Dose: 10 mg Nitroglycerin (Nitrostat Sl Tab) 0.4 mg SL Q15M PRN PRN Reason: chest pain - Labs Labs: 11/16/16 08:15 11/16/16 08:15 PT 12.9 SECONDS (9.7-12.2) H 11/11/16 13:20 INR 1.1 11/11/16 13:20 APTT 50 SECONDS (21-34) H D 11/13/16 14:11 - Constitutional Appears: No Acute Distress - Head Exam Head Exam: NORMAL INSPECTION, NORMOCEPHALIC - Eye Exam Eye Exam: EOMI, Normal appearance Pupil Exam: NORMAL ACCOMODATION - ENT Exam ENT Exam: Mucous Membranes Moist, Normal Exam - Neck Exam Neck Exam: Normal Inspection - Respiratory Exam Respiratory Exam: Clear to Ausculation Bilateral, NORMAL BREATHING PATTERN - Cardiovascular Exam Cardiovascular Exam: REGULAR RHYTHM - GI/Abdominal Exam GI & Abdominal Exam: Soft, Normal Bowel Sounds - Extremities Exam Extremities Exam: Full ROM, Normal Inspection - Back Exam Back Exam: NORMAL INSPECTION - Neurological Exam Neurological Exam: Alert, Awake, Normal Gait Neuro motor strength exam: Left Upper Extremity: 4, Right Upper Extremity: 4, Left Lower Extremity: 3, Right Lower Extremity: 3 - Psychiatric Exam Psychiatric exam: Normal Affect, Normal Mood - Skin Skin Exam: Dry, Intact, Normal Color Assessment and Plan (1) Anemia of chronic disease Assessment & Plan: may need to increase Procrit but will monitor Status: Chronic (2) Gastroparesis Assessment & Plan: continue promotility agent Status: Resolved (3) Intra-abdominal abscess Assessment & Plan: continue IV abx. Need to pin down ID on length of IV abx adn what to watch out for. Status: Resolved (4) ESRD (end stage renal disease) Assessment & Plan: set up for outpatient HD at [facility] Status: Acute (5) Generalized weakness Assessment & Plan: needs extensive PT Status: Acute
[2016-11-18 18:47] LABS: IRON 46 ug/dL (37-170)
[2016-11-18] MEDS: Cefepime IV 1 gm in Dextrose 1 GM/50 ML BAG IVPB SCH (19:00)
[2016-11-19] MEDS: Lactobacillus Acidophilus 500 MU Cap PO SCH ×2 (09:13→17:21)
--- NOTE | 2016-11-19 14:19 | CP.PCM.PN ---
Subjective - Date & Time of Evaluation Date of Evaluation: 11/19/16 Time of Evaluation: 14:17 - Subjective Subjective: seen and examined hd yesterday iv antibiotics noted Objective - Vital Signs/Intake and Output Vital Signs (last 24 hours): Temp Pulse Resp BP Pulse Ox 98.2 F 105 H 20 152/78 H 100 11/18/16 23:25 11/18/16 23:25 11/18/16 23:25 11/18/16 23:25 11/18/16 23:25 Intake and Output: 11/19/16 11/19/16 06:59 18:59 Intake Total 290 Balance 290 - Medications Medications: Current Medications Acetaminophen (Tylenol 325mg Tab) 650 mg PO Q6 PRN PRN Reason: temp > 99.5 Last Admin: 11/19/16 09:23 Dose: 650 mg Epoetin Mik (Procrit) 10,000 unit IV [facility] Last Admin: 11/18/16 16:12 Dose: 10,000 unit Folic Acid (Folic Acid) 1 mg PO DAILY [facility] Last Admin: 11/19/16 09:13 Dose: 1 mg Heparin Sodium (Porcine) (Heparin) 4,100 units IVP [facility] Last Admin: 11/18/16 17:18 Dose: 4,100 units Gentamicin Sulfate/Sodium Chloride (Gentamicin Iv 80 Mg Premix) 80 mg in 100 mls @ 100 mls/hr IVPB [facility] Last Admin: 11/18/16 09:38 Dose: 100 mls/hr Vancomycin/Sodium Chloride (Vancocin) 1 gm in 200 mls @ 133.333 mls/hr [facility] Stop: 11/23/16 09:01 Last Admin: 11/18/16 09:39 Dose: 133.333 mls/hr Vancomycin/Sodium Chloride (Vancocin) 1 gm in 200 mls @ 133.333 mls/hr IVPB STAT [facility] Stop: 11/22/16 17:01 Cefepime HCl (Maxipime Iv 1 Gm Premix) 1 gm in 50 mls @ 100 mls/hr IVPB Q24H [facility] Last Admin: 11/18/16 19:00 Dose: 100 mls/hr Lactobacillus Acidophilus (Bacid Acidophilus) 1 cap PO BID [facility] Last Admin: 11/19/16 09:13 Dose: 1 cap Losartan Potassium (Cozaar) 50 mg PO DAILY [facility] Last Admin: 11/19/16 09:13 Dose: 50 mg Metoclopramide HCl (Reglan) 10 mg PO ACLD [facility] Last Admin: 11/19/16 11:46 Dose: 10 mg Nitroglycerin (Nitrostat Sl Tab) 0.4 mg SL Q15M PRN PRN Reason: chest pain - Labs Labs: 11/16/16 08:15 11/16/16 08:15 PT 12.9 SECONDS (9.7-12.2) H 11/11/16 13:20 INR 1.1 11/11/16 13:20 APTT 50 SECONDS (21-34) H D 11/13/16 14:11 - Constitutional Appears: Non-toxic, No Acute Distress, Chronically Ill - Head Exam Head Exam: NORMAL INSPECTION - Eye Exam Eye Exam: Normal appearance - ENT Exam ENT Exam: Mucous Membranes Moist, Normal Exam - Neck Exam Neck Exam: Normal Inspection - Respiratory Exam Respiratory Exam: Decreased Breath Sounds, NORMAL BREATHING PATTERN - Cardiovascular Exam Cardiovascular Exam: REGULAR RHYTHM, RRR - GI/Abdominal Exam GI & Abdominal Exam: Distended, Tenderness Additional comments: midline scar - Extremities Exam Extremities Exam: Normal Inspection Assessment and Plan (1) Hypertension Status: Acute (2) ESRD (end stage renal disease) Status: Acute (3) Type 2 diabetes mellitus with diabetic nephropathy Status: Acute (4) Anemia of chronic disease Status: Chronic (5) Intra-abdominal abscess Status: Resolved - Assessment and Plan (Free Text) Assessment: plan: maintain hd mwf ? placement in [facility]. HD [facility] antibiotics edwina w/ hd
--- NOTE | 2016-11-19 16:32 | CP.PCM.PN ---
Subjective - Date & Time of Evaluation Date of Evaluation: 11/19/16 Time of Evaluation: 16:29 - Subjective Subjective: PGY1 Progress note for Dr. Garzon: Patient previously seen for peritonitis. Asked to reassess patient for AV fistula placement. Patient awake but not very conversant. Patient without acute complaints. Objective - Vital Signs/Intake and Output Vital Signs (last 24 hours): Temp Pulse Resp BP Pulse Ox 97.4 F L 97 H 20 166/93 H 100 11/19/16 15:57 11/19/16 15:57 11/19/16 15:57 11/19/16 15:57 11/19/16 15:57 Intake and Output: 11/19/16 11/19/16 06:59 18:59 Intake Total 290 Balance 290 - Medications Medications: Current Medications Acetaminophen (Tylenol 325mg Tab) 650 mg PO Q6 PRN PRN Reason: temp > 99.5 Last Admin: 11/19/16 09:23 Dose: 650 mg Epoetin Mik (Procrit) 10,000 unit IV [facility] [place] Last Admin: 11/18/16 16:12 Dose: 10,000 unit Folic Acid (Folic Acid) 1 mg PO DAILY [facility] Last Admin: 11/19/16 09:13 Dose: 1 mg Heparin Sodium (Porcine) (Heparin) 4,100 units IVP [facility] [place] Last Admin: 11/18/16 17:18 Dose: 4,100 units Gentamicin Sulfate/Sodium Chloride (Gentamicin Iv 80 Mg Premix) 80 mg in 100 mls @ 100 mls/hr IVPB [facility] [place] Last Admin: 11/18/16 09:38 Dose: 100 mls/hr Vancomycin/Sodium Chloride (Vancocin) 1 gm in 200 mls @ 133.333 mls/hr IVPB MWF [facility] Stop: 11/23/16 09:01 Last Admin: 11/18/16 09:39 Dose: 133.333 mls/hr Vancomycin/Sodium Chloride (Vancocin) 1 gm in 200 mls @ 133.333 mls/hr IVPB STAT [facility] Stop: 11/22/16 17:01 Cefepime HCl (Maxipime Iv 1 Gm Premix) 1 gm in 50 mls @ 100 mls/hr IVPB Q24H [facility] Last Admin: 11/18/16 19:00 Dose: 100 mls/hr Lactobacillus Acidophilus (Bacid Acidophilus) 1 cap PO BID [facility] Last Admin: 11/19/16 09:13 Dose: 1 cap Losartan Potassium (Cozaar) 50 mg PO DAILY [facility] Last Admin: 11/19/16 09:13 Dose: 50 mg Metoclopramide HCl (Reglan) 10 mg PO ACLD [facility] Last Admin: 11/19/16 11:46 Dose: 10 mg Nitroglycerin (Nitrostat Sl Tab) 0.4 mg SL Q15M PRN PRN Reason: chest pain - Labs Labs: 11/16/16 08:15 11/16/16 08:15 PT 12.9 SECONDS (9.7-12.2) H 11/11/16 13:20 INR 1.1 11/11/16 13:20 APTT 50 SECONDS (21-34) H D 11/13/16 14:11 - Constitutional Appears: No Acute Distress, Chronically Ill - Eye Exam Eye Exam: EOMI - Neck Exam Additional comments: right chest permacath - Respiratory Exam Respiratory Exam: NORMAL BREATHING PATTERN - Cardiovascular Exam Cardiovascular Exam: REGULAR RHYTHM - Extremities Exam Additional comments: left arm PICC - Neurological Exam Neurological Exam: Awake - Skin Skin Exam: Dry, Warm Assessment and Plan - Assessment and Plan (Free Text) Assessment: 71 year old female with ESRD on HD via permacath with history of peritonitis from peritoneal dialysis catheter- evaluate for AV fistula - vein mapping study ordered - continue HD with permacath - follow up morning labs - D/W Dr. Garzon
--- NOTE | 2016-11-19 17:18 | CP.PCM.PN ---
Subjective - Date & Time of Evaluation Date of Evaluation: 11/19/16 Time of Evaluation: 17:12 - Subjective Subjective: Pt has sufficient iron stores to make blood to supports ADLs, though does not appear to produce enough. On procrit that started this admission. Seen at bedside pt sitting on chair eating dinner. > Discussed places for possible discharge in which to undergo rehabilitiation. Appreciate SW efforts in placement, aware that [facility] accepted patient. dvvised I will be turning over her care there, but will try to see how it can be arranged to follow her if pt requests it. Objective - Vital Signs/Intake and Output Vital Signs (last 24 hours): Temp Pulse Resp BP Pulse Ox 97.4 F L 97 H 20 166/93 H 100 11/19/16 15:57 11/19/16 15:57 11/19/16 15:57 11/19/16 15:57 11/19/16 15:57 Intake and Output: 11/19/16 11/19/16 06:59 18:59 Intake Total 290 350 Balance 290 350 - Medications Medications: Current Medications Acetaminophen (Tylenol 325mg Tab) 650 mg PO Q6 PRN PRN Reason: temp > 99.5 Last Admin: 11/19/16 09:23 Dose: 650 mg Benztropine Mesylate (Cogentin) 1 mg PO [facility] Epoetin Mik (Procrit) 10,000 unit IV [facility] Last Admin: 11/18/16 16:12 Dose: 10,000 unit Folic Acid (Folic Acid) 1 mg PO DAILY [facility] Last Admin: 11/19/16 09:13 Dose: 1 mg Heparin Sodium (Porcine) (Heparin) 4,100 units IVP [facility] Last Admin: 11/18/16 17:18 Dose: 4,100 units Gentamicin Sulfate/Sodium Chloride (Gentamicin Iv 80 Mg Premix) 80 mg in 100 mls @ 100 mls/hr IVPB [facility] Last Admin: 11/18/16 09:38 Dose: 100 mls/hr Vancomycin/Sodium Chloride (Vancocin) 1 gm in 200 mls @ 133.333 mls/hr IVPB [facility] Stop: 11/23/16 09:01 Last Admin: 11/18/16 09:39 Dose: 133.333 mls/hr Vancomycin/Sodium Chloride (Vancocin) 1 gm in 200 mls @ 133.333 mls/hr IVPB STAT [facility] Stop: 11/22/16 17:01 Cefepime HCl (Maxipime Iv 1 Gm Premix) 1 gm in 50 mls @ 100 mls/hr IVPB Q24H [facility] Last Admin: 11/18/16 19:00 Dose: 100 mls/hr Lactobacillus Acidophilus (Bacid Acidophilus) 1 cap PO BID [facility] Last Admin: 11/19/16 09:13 Dose: 1 cap Losartan Potassium (Cozaar) 50 mg PO DAILY [facility] Last Admin: 11/19/16 09:13 Dose: 50 mg Metoclopramide HCl (Reglan) 10 mg PO ACLD [facility] Last Admin: 11/19/16 16:45 Dose: 10 mg Nitroglycerin (Nitrostat Sl Tab) 0.4 mg SL Q15M PRN PRN Reason: chest pain - Labs Labs: 11/16/16 08:15 11/16/16 08:15 PT 12.9 SECONDS (9.7-12.2) H 11/11/16 13:20 INR 1.1 11/11/16 13:20 APTT 50 SECONDS (21-34) H D 11/13/16 14:11 - Constitutional Appears: No Acute Distress - Head Exam Head Exam: NORMAL INSPECTION, NORMOCEPHALIC - Eye Exam Eye Exam: EOMI, Normal appearance, PERRL Pupil Exam: NORMAL ACCOMODATION, PERRL - ENT Exam ENT Exam: Mucous Membranes Moist, Normal Exam - Neck Exam Neck Exam: Normal Inspection - Respiratory Exam Respiratory Exam: Clear to Ausculation Bilateral, NORMAL BREATHING PATTERN - Cardiovascular Exam Cardiovascular Exam: REGULAR RHYTHM - GI/Abdominal Exam GI & Abdominal Exam: Normal Bowel Sounds - Rectal Exam Rectal Exam: Deferred - Back Exam Back Exam: NORMAL INSPECTION - Neurological Exam Neurological Exam: Alert, Awake, CN II-XII Intact, Normal Gait, Oriented x3 Neuro motor strength exam: Left Upper Extremity: 4, Right Upper Extremity: 4, Left Lower Extremity: 3, Right Lower Extremity: 3 - Psychiatric Exam Psychiatric exam: Normal Affect, Normal Mood - Skin Skin Exam: Dry, Normal Color, Warm Assessment and Plan (1) Anemia of chronic disease Assessment & Plan: continue to watch bloodwork from dialysis and transfuse prn Status: Chronic (2) Gastroparesis Assessment & Plan: taper off metoclopramide 2ndry to possible adverse effects Status: Resolved (3) Intra-abdominal abscess Assessment & Plan: resolving. need to pin down length of IV abx to prevent recurrence. PICC line in place. Status: Resolved (4) ESRD (end stage renal disease) Assessment & Plan: pt had opening at [facility] on [address] latest SW notes places pt at [facility] on [address] Will clarify before discharge. Status: Acute (5) Generalized weakness Assessment & Plan: will definitely need rehab, pt eager to resume Status: Acute
[2016-11-19] MEDS: Cefepime IV 1 gm in Dextrose 1 GM/50 ML BAG IVPB SCH (17:26)
[2016-11-20 07:06] LABS: BASO % 0.3 % (0.0-2.0); EOS # 0.2 K/uL (0.0-0.7); EOS % 1.1 % (0.0-4.0); HEMATOCRIT 23.6 % (34.0-47.0); LYMPH # 1.2 K/uL (1.0-4.3); LYMPH % 8.6 % (20.0-40.0); MEAN CELL VOLUME 87.3 fL (81.0-99.0); MEAN CORPUSCULAR HEMOGLOBIN 27.8 pg (27.0-31.0); MEAN CORPUSCULAR HGB CONC 31.9 g/dL (33.0-37.0); MEAN PLATELET VOLUME 8.7 fL (7.2-11.7); MONO # 1.7 K/uL (0.0-0.8); MONO % 11.7 % (0.0-10.0); PLATELET COUNT 245 K/uL (130-400); RED CELL DISTRIBUTION WIDTH 15.8 % (11.5-14.5); WHITE BLOOD COUNT 14.5 K/uL (4.8-10.8)
[2016-11-20 07:25] LABS: ALB/GLOB RATIO 0.6 (1.0-2.1); BILIRUBIN,TOTAL 0.9 mg/dL (0.2-1.3); TOTAL PROTEIN 6.7 g/dL (6.3-8.3)
[2016-11-20 07:26] LABS: CALCIUM 9.2 mg/dl (8.6-10.4)
--- NOTE | 2016-11-20 08:36 | CP.PCM.PN ---
Subjective - Date & Time of Evaluation Date of Evaluation: 11/20/16 Time of Evaluation: 08:33 - Subjective Subjective: PGY1 progess note for Dr. Garzon: Patient seen and examined. Patient awake and alert, states she feels okay. Patient states she has abdominal pain on and off. Objective - Vital Signs/Intake and Output Vital Signs (last 24 hours): Temp Pulse Resp BP Pulse Ox 97.8 F 99 H 18 172/83 H 99 11/20/16 07:00 11/20/16 07:00 11/20/16 07:00 11/20/16 07:00 11/20/16 07:00 Intake and Output: 11/20/16 11/20/16 06:59 18:59 Intake Total 300 Balance 300 - Medications Medications: Current Medications Acetaminophen (Tylenol 325mg Tab) 650 mg PO Q6 PRN PRN Reason: temp > 99.5 Last Admin: 11/19/16 09:23 Dose: 650 mg Benztropine Mesylate (Cogentin) 1 mg PO HS [facility] Last Admin: 11/19/16 21:38 Dose: 1 mg Epoetin Mik (Procrit) 10,000 unit IV [facility] Last Admin: 11/18/16 16:12 Dose: 10,000 unit Folic Acid (Folic Acid) 1 mg PO DAILY [facility] Last Admin: 11/19/16 09:13 Dose: 1 mg Heparin Sodium (Porcine) (Heparin) 4,100 units IVP [facility] Last Admin: 11/18/16 17:18 Dose: 4,100 units Gentamicin Sulfate/Sodium Chloride (Gentamicin Iv 80 Mg Premix) 80 mg in 100 mls @ 100 mls/hr IVPB [facility] Last Admin: 11/18/16 09:38 Dose: 100 mls/hr Vancomycin/Sodium Chloride (Vancocin) 1 gm in 200 mls @ 133.333 mls/hr IVPB MWF [facility] Stop: 11/23/16 09:01 Last Admin: 11/18/16 09:39 Dose: 133.333 mls/hr Vancomycin/Sodium Chloride (Vancocin) 1 gm in 200 mls @ 133.333 mls/hr IVPB STAT [facility] Stop: 11/22/16 17:01 Cefepime HCl (Maxipime Iv 1 Gm Premix) 1 gm in 50 mls @ 100 mls/hr IVPB Q24H [facility] Last Admin: 11/19/16 17:26 Dose: 100 mls/hr Lactobacillus Acidophilus (Bacid Acidophilus) 1 cap PO BID [facility] Last Admin: 11/19/16 17:21 Dose: 1 cap Losartan Potassium (Cozaar) 50 mg PO DAILY [facility] Last Admin: 11/19/16 09:13 Dose: 50 mg Metoclopramide HCl (Reglan) 10 mg PO ACLD [facility] Last Admin: 11/19/16 16:45 Dose: 10 mg Nitroglycerin (Nitrostat Sl Tab) 0.4 mg SL Q15M PRN PRN Reason: chest pain - Labs Labs: 11/20/16 06:59 11/20/16 06:59 PT 12.9 SECONDS (9.7-12.2) H 11/11/16 13:20 INR 1.1 11/11/16 13:20 APTT 50 SECONDS (21-34) H D 11/13/16 14:11 - Constitutional Appears: Non-toxic, No Acute Distress - Head Exam Head Exam: ATRAUMATIC, NORMOCEPHALIC - Eye Exam Eye Exam: EOMI - ENT Exam ENT Exam: Mucous Membranes Moist - Respiratory Exam Respiratory Exam: NORMAL BREATHING PATTERN - Extremities Exam Additional comments: left arm PICC line right chest permacath - Neurological Exam Neurological Exam: Alert, Awake - Psychiatric Exam Psychiatric exam: Normal Affect - Skin Skin Exam: Warm Assessment and Plan - Assessment and Plan (Free Text) Assessment: 71 year old female with ESRD on HD via permacath with history of peritonitis from peritoneal dialysis catheter- evaluate for AV fistula - vein mapping study ordered - continue HD with permacath - Hgb drop from 9.1 to 7.5 on AM labs - further recs per Dr. Garzon
[2016-11-20] MEDS: Gentamicin 80 mg in 0.9% NS 80 MG/100 ML BAG IVPB SCH (08:57)
[2016-11-20] MEDS: Vancomycin 1 gm/NS 200 ml 1 GM/200 ML BAG IVPB SCH (08:58)
[2016-11-20 09:03] LABS: EOSINOPHIL 3 % (0-4); MYELOCYTE 1 % (0-0); NEUTROPHIL 80 % (50-75); TOTAL CELLS COUNTED 100
[2016-11-20] MEDS: Lactobacillus Acidophilus 500 MU Cap PO SCH ×2 (09:57→18:00)
[2016-11-20] MEDS: Epoetin Alfa 10,000 unit/ml Dialysis IV SCH (09:59)
--- NOTE | 2016-11-20 14:48 | CP.PCM.PN ---
Subjective - Date & Time of Evaluation Date of Evaluation: 11/20/16 Time of Evaluation: 14:43 - Subjective Subjective: s/p dialysis today- UF 2500ml s/p blood transfusion 2 units prbcs remains on IV ABs for abscess c/o abdominal pains and constipation still chronically ill Objective - Vital Signs/Intake and Output Vital Signs (last 24 hours): Temp Pulse Resp BP Pulse Ox 97.4 F L 99 H 20 155/91 H 100 11/20/16 13:02 11/20/16 13:02 11/20/16 13:02 11/20/16 13:02 11/20/16 12:45 Intake and Output: 11/20/16 11/20/16 06:59 18:59 Intake Total 300 0 Balance 300 0 - Medications Medications: Current Medications Acetaminophen (Tylenol 325mg Tab) 650 mg PO Q6 PRN PRN Reason: temp > 99.5 Last Admin: 11/19/16 09:23 Dose: 650 mg Benztropine Mesylate (Cogentin) 1 mg PO [facility] Last Admin: 11/19/16 21:38 Dose: 1 mg Epoetin Mik (Procrit) 10,000 unit IV [facility] [place] Last Admin: 11/20/16 09:59 Dose: 10,000 unit Folic Acid (Folic Acid) 1 mg PO DAILY [facility] Last Admin: 11/20/16 09:57 Dose: Not Given Heparin Sodium (Porcine) (Heparin) 4,100 units IVP [facility] [place] Last Admin: 11/18/16 17:18 Dose: 4,100 units Gentamicin Sulfate/Sodium Chloride (Gentamicin Iv 80 Mg Premix) 80 mg in 100 mls @ 100 mls/hr IVPB [facility] [place] Last Admin: 11/20/16 08:57 Dose: 100 mls/hr Vancomycin/Sodium Chloride (Vancocin) 1 gm in 200 mls @ 133.333 mls/hr IVPB MWF [facility] Stop: 11/23/16 09:01 Last Admin: 11/20/16 08:58 Dose: 133.333 mls/hr Vancomycin/Sodium Chloride (Vancocin) 1 gm in 200 mls @ 133.333 mls/hr IVPB STAT [facility] Stop: 11/22/16 17:01 Cefepime HCl (Maxipime Iv 1 Gm Premix) 1 gm in 50 mls @ 100 mls/hr IVPB Q24H [facility] Last Admin: 11/19/16 17:26 Dose: 100 mls/hr Lactobacillus Acidophilus (Bacid Acidophilus) 1 cap PO BID [facility] Last Admin: 11/20/16 09:57 Dose: Not Given Losartan Potassium (Cozaar) 50 mg PO DAILY [facility] Last Admin: 11/20/16 09:57 Dose: Not Given Metoclopramide HCl (Reglan) 10 mg PO ACLD [facility] Last Admin: 11/20/16 11:30 Dose: Not Given Nitroglycerin (Nitrostat Sl Tab) 0.4 mg SL Q15M PRN PRN Reason: chest pain - Labs Labs: 11/20/16 06:59 11/20/16 06:59 PT 12.9 SECONDS (9.7-12.2) H 11/11/16 13:20 INR 1.1 11/11/16 13:20 APTT 50 SECONDS (21-34) H D 11/13/16 14:11 - Constitutional Appears: No Acute Distress, Chronically Ill - Head Exam Head Exam: ATRAUMATIC, NORMAL INSPECTION - Eye Exam Eye Exam: EOMI, Normal appearance - Neck Exam Neck Exam: Normal Inspection. absent: Tenderness - Respiratory Exam Respiratory Exam: Clear to Ausculation Bilateral, NORMAL BREATHING PATTERN - Cardiovascular Exam Cardiovascular Exam: REGULAR RHYTHM, +S1 - GI/Abdominal Exam GI & Abdominal Exam: Soft, Tenderness - Extremities Exam Extremities Exam: Normal Inspection. absent: Pedal Edema, Tenderness - Neurological Exam Neurological Exam: Alert, CN II-XII Intact - Skin Skin Exam: Dry, Warm Assessment and Plan (1) Type 2 diabetes mellitus with diabetic nephropathy Status: Acute (2) ESRD (end stage renal disease) Status: Acute (3) Intra-abdominal abscess Status: Resolved - Assessment and Plan (Free Text) Plan: add lactulose IV ABs as per ID Dialysis placement as outpt upon discharge
--- NOTE | 2016-11-20 15:48 | CP.PCM.PN ---
Subjective - Date & Time of Evaluation Date of Evaluation: 11/20/16 Time of Evaluation: 08:00 - Subjective Subjective: + drainage abd wall cont iv rx Objective - Vital Signs/Intake and Output Vital Signs (last 24 hours): Temp Pulse Resp BP Pulse Ox 97.4 F L 99 H 20 155/91 H 100 11/20/16 13:02 11/20/16 13:02 11/20/16 13:02 11/20/16 13:02 11/20/16 12:45 Intake and Output: 11/20/16 11/20/16 06:59 18:59 Intake Total 300 0 Balance 300 0 - Medications Medications: Current Medications Acetaminophen (Tylenol 325mg Tab) 650 mg PO Q6 PRN PRN Reason: temp > 99.5 Last Admin: 11/19/16 09:23 Dose: 650 mg Benztropine Mesylate (Cogentin) 1 mg PO [facility] Last Admin: 11/19/16 21:38 Dose: 1 mg Epoetin Mik (Procrit) 10,000 [place] [facility] Last Admin: 11/20/16 09:59 Dose: 10,000 unit Folic Acid (Folic Acid) 1 mg PO DAILY [facility] Last Admin: 11/20/16 09:57 Dose: Not Given Heparin Sodium (Porcine) (Heparin) 4,100 units [place] [facility] Last Admin: 11/18/16 17:18 Dose: 4,100 units Gentamicin Sulfate/Sodium Chloride (Gentamicin Iv 80 Mg Premix) 80 mg in 100 mls @ 100 mls/hr IVPB [facility] Last Admin: 11/20/16 08:57 Dose: 100 mls/hr Vancomycin/Sodium Chloride (Vancocin) 1 gm in 200 mls @ 133.333 mls/hr [place]PB [facility] Stop: 11/23/16 09:01 Last Admin: 11/20/16 08:58 Dose: 133.333 mls/hr Vancomycin/Sodium Chloride (Vancocin) 1 gm in 200 mls @ 133.333 mls/hr IVPB [facility] Stop: 11/22/16 17:01 Cefepime HCl (Maxipime Iv 1 Gm Premix) 1 gm in 50 mls @ 100 mls/hr IVPB Q24H [facility] Last Admin: 11/19/16 17:26 Dose: 100 mls/hr Lactobacillus Acidophilus (Bacid Acidophilus) 1 cap PO BID [facility] Last Admin: 11/20/16 09:57 Dose: Not Given Lactulose (Enulose) 20 gm PO HS [facility] Losartan Potassium (Cozaar) 50 mg PO DAILY [facility] Last Admin: 11/20/16 09:57 Dose: Not Given Metoclopramide HCl (Reglan) 10 mg PO ACLD [facility] Last Admin: 11/20/16 11:30 Dose: Not Given Nitroglycerin (Nitrostat Sl Tab) 0.4 mg SL Q15M PRN PRN Reason: chest pain - Labs Labs: 11/20/16 06:59 11/20/16 06:59 PT 12.9 SECONDS (9.7-12.2) H 11/11/16 13:20 INR 1.1 11/11/16 13:20 APTT 50 SECONDS (21-34) H D 11/13/16 14:11 Assessment and Plan (1) ESRD (end stage renal disease) Status: Acute (2) Intra-abdominal abscess Status: Resolved
[2016-11-20] MEDS: Cefepime IV 1 gm in Dextrose 1 GM/50 ML BAG IVPB SCH (17:28)
[2016-11-20 18:36] LABS: URINE BACTERIA MOD (<OCC); URINE BILIRUBIN NEGATIVE (NEGATIVE); URINE BLOOD NEGATIVE (NEGATIVE); URINE GLUCOSE (UA) 2+ mg/dL (Normal); URINE KETONE NEGATIVE (NEGATIVE); URINE LEUKOCYTE ESTERASE 3+ Leu/uL (Negative); URINE PROTEIN 2+ mg/dL (NEGATIVE); URINE UROBILINOGEN NORMAL mg/dL (0.2-1.0); WBC CLUMPS MANY /hpf; WBC URINE 482 /hpf (0-5)
[2016-11-20 18:55] LABS: URINE COLOR YELLOW (YELLOW)
--- NOTE | 2016-11-20 23:15 | CP.PCM.PN ---
Subjective - Date & Time of Evaluation Date of Evaluation: 11/20/16 Time of Evaluation: 17:00 - Subjective Subjective: Noted today's events, ian drop in hgb. Ordered BT during dialysis for supportive measures. Pt denies any bleeding, nor does she manifest any obvious signs of fluid collection/hematoma. Pt had + fluid balance for at least 5 days if not more. Slight increase in WBC, but afebrile and does not look septic at this time. Objective - Vital Signs/Intake and Output Vital Signs (last 24 hours): Temp Pulse Resp BP Pulse Ox 97.6 F 98 H 20 161/80 H 100 11/20/16 15:00 11/20/16 15:00 11/20/16 15:00 11/20/16 15:00 11/20/16 15:00 Intake and Output: 11/20/16 11/21/16 18:59 06:59 Intake Total 600 400 Balance 600 400 - Medications Medications: Current Medications Acetaminophen (Tylenol 325mg Tab) 650 mg PO Q6 PRN PRN Reason: temp > 99.5 Last Admin: 11/19/16 09:23 Dose: 650 mg Benztropine Mesylate (Cogentin) 1 mg PO [facility] Last Admin: 11/20/16 21:13 Dose: 1 mg Epoetin Mik (Procrit) 10,000 unit IV [facility] [place] Last Admin: 11/20/16 09:59 Dose: 10,000 unit Folic Acid (Folic Acid) 1 mg PO DAILY [facility] Last Admin: 11/20/16 09:57 Dose: Not Given Gentamicin Sulfate/Sodium Chloride (Gentamicin Iv 80 Mg Premix) 80 mg in 100 mls @ 100 mls/hr IVPB [facility] Last Admin: 11/20/16 08:57 Dose: 100 mls/hr Vancomycin/Sodium Chloride (Vancocin) 1 gm in 200 mls @ 133.333 mls/hr IVPB MWF [facility] Stop: 11/23/16 09:01 Last Admin: 11/20/16 08:58 Dose: 133.333 mls/hr Vancomycin/Sodium Chloride (Vancocin) 1 gm in 200 mls @ 133.333 mls/hr IVPB STAT [facility] Stop: 11/22/16 17:01 Cefepime HCl (Maxipime Iv 1 Gm Premix) 1 gm in 50 mls @ 100 mls/hr IVPB Q24H [facility] Last Admin: 11/20/16 17:28 Dose: 100 mls/hr Lactobacillus Acidophilus (Bacid Acidophilus) 1 cap PO BID [facility] Last Admin: 11/20/16 18:00 Dose: 1 cap Lactulose (Enulose) 20 gm PO HS [facility] Last Admin: 11/20/16 21:13 Dose: 20 gm Losartan Potassium (Cozaar) 50 mg PO DAILY [facility] Last Admin: 11/20/16 09:57 Dose: Not Given Metoclopramide HCl (Reglan) 10 mg PO ACLD [facility] Last Admin: 11/20/16 17:00 Dose: 10 mg Nitroglycerin (Nitrostat Sl Tab) 0.4 mg SL Q15M PRN PRN Reason: chest pain - Labs Labs: 11/20/16 06:59 11/20/16 06:59 PT 12.9 SECONDS (9.7-12.2) H 11/11/16 13:20 INR 1.1 11/11/16 13:20 APTT 50 SECONDS (21-34) H D 11/13/16 14:11 - Constitutional Appears: Non-toxic, No Acute Distress - Head Exam Head Exam: NORMAL INSPECTION, NORMOCEPHALIC - Eye Exam Eye Exam: Normal appearance - ENT Exam ENT Exam: Mucous Membranes Moist, Normal Exam - Neck Exam Neck Exam: Normal Inspection - Respiratory Exam Respiratory Exam: Clear to Ausculation Bilateral, NORMAL BREATHING PATTERN - Cardiovascular Exam Cardiovascular Exam: REGULAR RHYTHM - GI/Abdominal Exam GI & Abdominal Exam: Soft, Normal Bowel Sounds - Rectal Exam Rectal Exam: Deferred - Back Exam Back Exam: NORMAL INSPECTION, vertebral tenderness - Neurological Exam Neurological Exam: Alert, Awake, CN II-XII Intact, Normal Gait, Oriented x3 Neuro motor strength exam: Left Upper Extremity: 4, Right Upper Extremity: 4, Left Lower Extremity: 3, Right Lower Extremity: 3 - Psychiatric Exam Psychiatric exam: Normal Affect, Normal Mood - Skin Skin Exam: Dry, Normal Color, Warm Assessment and Plan (1) Anemia of chronic disease Assessment & Plan: sudden drop in hgb, could be attributed to hemodilution as + fluid balance persisted for several days and since pt in CRF, dilution could not be helped. Status: Chronic (2) Gastroparesis Assessment & Plan: complains of some abdom pain and constipation. Says she moves her bowels q AM normally, but having difficulty getting regular at this time also. Status: Resolved (3) Intra-abdominal abscess Assessment & Plan: hopefully resolved. + drainage from AVF but may be normal Status: Resolved (4) ESRD (end stage renal disease) Assessment & Plan: needs a lot of handholding to allow pt to come to office. Admits ESRD is her fault, and attempting to do better. Status: Acute (5) Generalized weakness Assessment & Plan: will d/c pt to [facility] when stable Status: Acute
[2016-11-21 06:27] LABS: BASO % 0.4 % (0.0-2.0); EOS # 0.2 K/uL (0.0-0.7); EOS % 1.2 % (0.0-4.0); LYMPH % 7.7 % (20.0-40.0); MEAN CELL VOLUME 86.4 fL (81.0-99.0); MEAN CORPUSCULAR HEMOGLOBIN 28.5 pg (27.0-31.0); MEAN PLATELET VOLUME 8.9 fL (7.2-11.7); MONO # 1.5 K/uL (0.0-0.8); MONO % 12.1 % (0.0-10.0); PLATELET COUNT 227 K/uL (130-400); WHITE BLOOD COUNT 12.6 K/uL (4.8-10.8)
[2016-11-21 06:50] LABS: POTASSIUM 3.9 mmol/L (3.6-5.2)
[2016-11-21 06:52] LABS: ALB/GLOB RATIO 0.6 (1.0-2.1); BILIRUBIN,TOTAL 0.9 mg/dL (0.2-1.3); TOTAL PROTEIN 7.1 g/dL (6.3-8.3)
[2016-11-21 06:53] LABS: CALCIUM 8.7 mg/dl (8.6-10.4)
[2016-11-21] MEDS: Lactobacillus Acidophilus 500 MU Cap PO SCH ×2 (09:06→19:00)
[2016-11-21 09:18] LABS: EOSINOPHIL 2 % (0-4); NEUTROPHIL 82 % (50-75); TOTAL CELLS COUNTED 100
--- NOTE | 2016-11-21 10:11 | CP.PCM.PN ---
Subjective - Date & Time of Evaluation Date of Evaluation: 11/21/16 Time of Evaluation: 10:06 - Subjective Subjective: PGY1 Progress note for Dr. Garzon: Patient seen and examined. Patient states she is feeling much better. Patient states she is eating well and denies nausea and vomiting. Objective - Vital Signs/Intake and Output Vital Signs (last 24 hours): Temp Pulse Resp BP Pulse Ox 98.1 F 89 18 159/91 H 100 11/21/16 07:00 11/21/16 07:00 11/21/16 07:00 11/21/16 07:00 11/21/16 07:00 Intake and Output: 11/21/16 11/21/16 06:59 18:59 Intake Total 400 Balance 400 - Medications Medications: Current Medications Acetaminophen (Tylenol 325mg Tab) 650 mg PO Q6 PRN PRN Reason: temp > 99.5 Last Admin: 11/19/16 09:23 Dose: 650 mg Benztropine Mesylate (Cogentin) 1 mg PO [facility] Last Admin: 11/20/16 21:13 Dose: 1 mg Epoetin Mik (Procrit) 10,000 [place] [facility] Last Admin: 11/20/16 09:59 Dose: 10,000 unit Folic Acid (Folic Acid) 1 mg PO DAILY [facility] Last Admin: 11/21/16 09:05 Dose: 1 mg Gentamicin Sulfate/Sodium Chloride (Gentamicin Iv 80 Mg Premix) 80 mg in 100 mls @ 100 mls/hr [place] [facility] Last Admin: 11/20/16 08:57 Dose: 100 mls/hr Vancomycin/Sodium Chloride (Vancocin) 1 gm in 200 mls @ 133.333 mls/hr IVPB MWF [facility] Stop: 11/23/16 09:01 Last Admin: 11/20/16 08:58 Dose: 133.333 mls/hr Vancomycin/Sodium Chloride (Vancocin) 1 gm in 200 mls @ 133.333 mls/hr IVPB STAT [facility] Stop: 11/22/16 17:01 Cefepime HCl (Maxipime Iv 1 Gm Premix) 1 gm in 50 mls @ 100 mls/hr IVPB Q24H [facility] Last Admin: 11/20/16 17:28 Dose: 100 mls/hr Lactobacillus Acidophilus (Bacid Acidophilus) 1 cap PO BID [facility] Last Admin: 11/21/16 09:06 Dose: 1 cap Lactulose (Enulose) 20 gm PO HS [facility] Last Admin: 11/20/16 21:13 Dose: 20 gm Losartan Potassium (Cozaar) 50 mg PO DAILY [facility] Last Admin: 11/21/16 09:05 Dose: 50 mg Metoclopramide HCl (Reglan) 10 mg PO ACLD [facility] Last Admin: 11/20/16 17:00 Dose: 10 mg Nitroglycerin (Nitrostat Sl Tab) 0.4 mg SL Q15M PRN PRN Reason: chest pain - Labs Labs: 11/21/16 06:12 11/21/16 06:12 PT 12.9 SECONDS (9.7-12.2) H 11/11/16 13:20 INR 1.1 11/11/16 13:20 APTT 50 SECONDS (21-34) H D 11/13/16 14:11 - Constitutional Appears: No Acute Distress, Chronically Ill - Head Exam Head Exam: ATRAUMATIC, NORMOCEPHALIC - Eye Exam Eye Exam: EOMI - Respiratory Exam Respiratory Exam: Clear to Ausculation Bilateral, NORMAL BREATHING PATTERN - Cardiovascular Exam Cardiovascular Exam: REGULAR RHYTHM - GI/Abdominal Exam GI & Abdominal Exam: Soft - Extremities Exam Additional comments: left arm PICC line right chest permacath - Neurological Exam Neurological Exam: Alert, Awake - Psychiatric Exam Psychiatric exam: Normal Affect - Skin Skin Exam: Dry, Warm Assessment and Plan - Assessment and Plan (Free Text) Assessment: 71 year old female with ESRD on HD via permacath with history of peritonitis from peritoneal dialysis catheter- evaluate for AV fistula - vein mapping study ordered- to be completed today - continue HD with permacath MWF - Hgb 9.9 on AM labs after transfusion 2 units PRBC during dialysis - further recs per Dr. Garzon
--- NOTE | 2016-11-21 10:51 | CP.PCM.PN ---
Subjective - Date & Time of Evaluation Date of Evaluation: 11/21/16 Time of Evaluation: 10:48 - Subjective Subjective: s/p dialysis 5/4 - UF 2500ml s/p blood transfusion for drop in Hg Remains on IV ABs- afebrile course now For vein mapping now Objective - Vital Signs/Intake and Output Vital Signs (last 24 hours): Temp Pulse Resp BP Pulse Ox 98.1 F 89 18 159/91 H 100 11/21/16 07:00 11/21/16 07:00 11/21/16 07:00 11/21/16 07:00 11/21/16 07:00 Intake and Output: 11/21/16 11/21/16 06:59 18:59 Intake Total 400 Balance 400 - Medications Medications: Current Medications Acetaminophen (Tylenol 325mg Tab) 650 mg PO Q6 PRN PRN Reason: temp > 99.5 Last Admin: 11/19/16 09:23 Dose: 650 mg Benztropine Mesylate (Cogentin) 1 mg PO [facility] Last Admin: 11/20/16 21:13 Dose: 1 mg Epoetin Mik (Procrit) 10,000 unit IV MWF [facility] Last Admin: 11/20/16 09:59 Dose: 10,000 unit Folic Acid (Folic Acid) 1 mg PO DAILY [facility] Last Admin: 11/21/16 09:05 Dose: 1 mg Gentamicin Sulfate/Sodium Chloride (Gentamicin Iv 80 Mg Premix) 80 mg in 100 mls @ 100 mls/hr IVPB MWF [facility] Last Admin: 11/20/16 08:57 Dose: 100 mls/hr Vancomycin/Sodium Chloride (Vancocin) 1 gm in 200 mls @ 133.333 mls/hr IVPB MWF [facility] Stop: 11/23/16 09:01 Last Admin: 11/20/16 08:58 Dose: 133.333 mls/hr Vancomycin/Sodium Chloride (Vancocin) 1 gm in 200 mls @ 133.333 mls/hr IVPB STAT [facility] Stop: 11/22/16 17:01 Cefepime HCl (Maxipime Iv 1 Gm Premix) 1 gm in 50 mls @ 100 mls/hr IVPB Q24H [facility] Last Admin: 11/20/16 17:28 Dose: 100 mls/hr Lactobacillus Acidophilus (Bacid Acidophilus) 1 cap PO BID [facility] Last Admin: 11/21/16 09:06 Dose: 1 cap Lactulose (Enulose) 20 gm PO HS [facility] Last Admin: 11/20/16 21:13 Dose: 20 gm Losartan Potassium (Cozaar) 50 mg PO DAILY [facility] Last Admin: 11/21/16 09:05 Dose: 50 mg Metoclopramide HCl (Reglan) 10 mg PO ACLD [facility] Last Admin: 11/20/16 17:00 Dose: 10 mg Nitroglycerin (Nitrostat Sl Tab) 0.4 mg SL Q15M PRN PRN Reason: chest pain - Labs Labs: 11/21/16 06:12 11/21/16 06:12 PT 12.9 SECONDS (9.7-12.2) H 11/11/16 13:20 INR 1.1 11/11/16 13:20 APTT 50 SECONDS (21-34) H D 11/13/16 14:11 - Constitutional Appears: No Acute Distress, Chronically Ill - Head Exam Head Exam: ATRAUMATIC, NORMAL INSPECTION - Eye Exam Eye Exam: EOMI, Normal appearance - Neck Exam Neck Exam: Normal Inspection. absent: Tenderness - Respiratory Exam Respiratory Exam: Clear to Ausculation Bilateral, NORMAL BREATHING PATTERN - Cardiovascular Exam Cardiovascular Exam: REGULAR RHYTHM, +S1 - GI/Abdominal Exam GI & Abdominal Exam: Distended, Soft. absent: Tenderness - Extremities Exam Extremities Exam: Normal Inspection. absent: Tenderness - Neurological Exam Neurological Exam: Alert, CN II-XII Intact - Skin Skin Exam: Dry, Warm Assessment and Plan (1) Type 2 diabetes mellitus with diabetic nephropathy Status: Acute (2) ESRD (end stage renal disease) Status: Acute (3) Intra-abdominal abscess Status: Resolved - Assessment and Plan (Free Text) Plan: Dialysis MWF Vein mapping IV ABs Surgical follow up
[2016-11-21] MEDS: Cefepime IV 1 gm in Dextrose 1 GM/50 ML BAG IVPB SCH (17:43)
--- NOTE | 2016-11-21 17:50 | CP.PCM.PN ---
Subjective - Date & Time of Evaluation Date of Evaluation: 11/21/16 Time of Evaluation: 10:00 - Subjective Subjective: iv rx renewed Objective - Vital Signs/Intake and Output Vital Signs (last 24 hours): Temp Pulse Resp BP Pulse Ox 98 F 98 H 18 168/78 H 100 11/21/16 15:00 11/21/16 15:00 11/21/16 15:00 11/21/16 15:00 11/21/16 15:00 Intake and Output: 11/21/16 11/21/16 06:59 18:59 Intake Total 400 300 Balance 400 300 - Medications Medications: Current Medications Acetaminophen (Tylenol 325mg Tab) 650 mg PO Q6 PRN PRN Reason: temp > 99.5 Last Admin: 11/19/16 09:23 Dose: 650 mg Benztropine Mesylate (Cogentin) 1 mg PO [facility] Last Admin: 11/20/16 21:13 Dose: 1 mg Epoetin Mik (Procrit) 10,000 unit IV [facility] [place] Last Admin: 11/20/16 09:59 Dose: 10,000 unit Folic Acid (Folic Acid) 1 mg PO DAILY [facility] Last Admin: 11/21/16 09:05 Dose: 1 mg Gentamicin Sulfate/Sodium Chloride (Gentamicin Iv 80 Mg Premix) 80 mg in 100 mls @ 100 mls/hr IVPB [facility] [place] Last Admin: 11/20/16 08:57 Dose: 100 mls/hr Vancomycin/Sodium Chloride (Vancocin) 1 gm in 200 mls @ 133.333 mls/hr IVPB MWF [facility] Stop: 11/23/16 09:01 Last Admin: 11/20/16 08:58 Dose: 133.333 mls/hr Vancomycin/Sodium Chloride (Vancocin) 1 gm in 200 mls @ 133.333 mls/hr IVPB STAT [facility] Stop: 11/22/16 17:01 Cefepime HCl (Maxipime Iv 1 Gm Premix) 1 gm in 50 mls @ 100 mls/hr IVPB Q24H [facility] Last Admin: 11/21/16 17:43 Dose: 100 mls/hr Lactobacillus Acidophilus (Bacid Acidophilus) 1 cap PO BID [facility] Last Admin: 11/21/16 09:06 Dose: 1 cap Lactulose (Enulose) 20 gm PO [facility] Last Admin: 11/20/16 21:13 Dose: 20 gm Losartan Potassium (Cozaar) 50 mg PO DAILY [facility] Last Admin: 11/21/16 09:05 Dose: 50 mg Metoclopramide HCl (Reglan) 10 mg PO ACLD [facility] Last Admin: 11/21/16 10:53 Dose: Not Given Nitroglycerin (Nitrostat Sl Tab) 0.4 mg SL Q15M PRN PRN Reason: chest pain - Labs Labs: 11/21/16 06:12 11/21/16 06:12 PT 12.9 SECONDS (9.7-12.2) H 11/11/16 13:20 INR 1.1 11/11/16 13:20 APTT 50 SECONDS (21-34) H D 11/13/16 14:11 - Constitutional Appears: Non-toxic, Cachectic, Chronically Ill - Head Exam Head Exam: NORMOCEPHALIC - Eye Exam Eye Exam: absent: Scleral icterus - ENT Exam ENT Exam: Mucous Membranes Dry - Neck Exam Neck Exam: absent: Thyromegaly - Respiratory Exam Respiratory Exam: Decreased Breath Sounds, Clear to Ausculation Bilateral - Cardiovascular Exam Cardiovascular Exam: REGULAR RHYTHM - GI/Abdominal Exam GI & Abdominal Exam: Distended, Soft, Tenderness Assessment and Plan (1) ESRD (end stage renal disease) Status: Acute (2) Intra-abdominal abscess Status: Resolved
--- NOTE | 2016-11-21 20:02 | CP.PCM.PN ---
Subjective - Date & Time of Evaluation Date of Evaluation: 11/21/16 Time of Evaluation: 20:01 - Subjective Subjective: Reviewed events today. Pt underwent vein mapping for AV fistula placement. Pt eating well, though abdomen refining still operator at abscess drainage site, with some serous discharge. WBC down from yesterday. No dates set on length of IV just yet , as it is hard to deteermine given pt's complex medical issues. > Discussed nursing notes on description of pt's abdominal tenderness, which was referred to as having "guarding". Pt had asked for some pain medication, and nurse on duty clarified that she was given Tylenol (acetaminophen) for it. . Objective - Vital Signs/Intake and Output Vital Signs (last 24 hours): Temp Pulse Resp BP Pulse Ox 98 F 98 H 18 168/78 H 100 11/21/16 15:00 11/21/16 15:00 11/21/16 15:00 11/21/16 15:00 11/21/16 15:00 Intake and Output: 11/21/16 11/22/16 18:59 06:59 Intake Total 300 Balance 300 - Medications Medications: Current Medications Acetaminophen (Tylenol 325mg Tab) 650 mg PO Q6 PRN PRN Reason: temp > 99.5 Last Admin: 11/21/16 19:06 Dose: 650 mg Benztropine Mesylate (Cogentin) 1 mg PO HS [facility] Last Admin: 11/20/16 21:13 Dose: 1 mg Epoetin Mik (Procrit) 10,000 unit IV [facility] Last Admin: 11/20/16 09:59 Dose: 10,000 unit Folic Acid (Folic Acid) 1 mg PO DAILY [facility] Last Admin: 11/21/16 09:05 Dose: 1 mg Gentamicin Sulfate/Sodium Chloride (Gentamicin Iv 80 Mg Premix) 80 mg in 100 mls @ 100 mls/hr IVPB [facility] Last Admin: 11/20/16 08:57 Dose: 100 mls/hr Vancomycin/Sodium Chloride (Vancocin) 1 gm in 200 mls @ 133.333 mls/hr IVPB MWF [facility] Stop: 11/23/16 09:01 Last Admin: 11/20/16 08:58 Dose: 133.333 mls/hr Vancomycin/Sodium Chloride (Vancocin) 1 gm in 200 mls @ 133.333 mls/hr IVPB [facility] Stop: 11/22/16 17:01 Cefepime HCl (Maxipime Iv 1 Gm Premix) 1 gm in 50 mls @ 100 mls/hr IVPB Q24H [facility] Last Admin: 11/21/16 17:43 Dose: 100 mls/hr Lactobacillus Acidophilus (Bacid Acidophilus) 1 cap PO BID [facility] Last Admin: 11/21/16 19:00 Dose: 1 cap Lactulose (Enulose) 20 gm PO HS [facility] Last Admin: 11/20/16 21:13 Dose: 20 gm Losartan Potassium (Cozaar) 50 mg PO DAILY [facility] Last Admin: 11/21/16 09:05 Dose: 50 mg Metoclopramide HCl (Reglan) 10 mg PO ACLD [facility] Last Admin: 11/21/16 16:30 Dose: Not Given Nitroglycerin (Nitrostat Sl Tab) 0.4 mg SL Q15M PRN PRN Reason: chest pain - Labs Labs: 11/21/16 06:12 11/21/16 06:12 PT 12.9 SECONDS (9.7-12.2) H 11/11/16 13:20 INR 1.1 11/11/16 13:20 APTT 50 SECONDS (21-34) H D 11/13/16 14:11 - Constitutional Appears: No Acute Distress, Chronically Ill - Head Exam Head Exam: ATRAUMATIC, NORMAL INSPECTION, NORMOCEPHALIC - Eye Exam Eye Exam: Normal appearance, PERRL Pupil Exam: NORMAL ACCOMODATION - ENT Exam ENT Exam: Mucous Membranes Moist, Normal Exam - Neck Exam Neck Exam: Full ROM, Normal Inspection - Respiratory Exam Respiratory Exam: Clear to Ausculation Bilateral, NORMAL BREATHING PATTERN - Cardiovascular Exam Cardiovascular Exam: REGULAR RHYTHM - GI/Abdominal Exam GI & Abdominal Exam: Normal Bowel Sounds - Rectal Exam Rectal Exam: Deferred - Extremities Exam Extremities Exam: Full ROM, Normal Capillary Refill, Normal Inspection - Back Exam Back Exam: NORMAL INSPECTION - Neurological Exam Neurological Exam: Abnormal Gait, Awake, CN II-XII Intact, Oriented x3 Neuro motor strength exam: Left Upper Extremity: 4, Right Upper Extremity: 4, Left Lower Extremity: 3, Right Lower Extremity: 3 - Psychiatric Exam Psychiatric exam: Normal Affect, Normal Mood - Skin Skin Exam: Dry, Intact, Normal Color, Warm Assessment and Plan (1) Anemia of chronic disease Status: Chronic (2) Gastroparesis Status: Resolved (3) Intra-abdominal abscess Assessment & Plan: unsure if abscess returning by isolated symptoms that filter thorugh the day to me. Status: Resolved (4) ESRD (end stage renal disease) Assessment & Plan: pt scheduled at [facility] for outpt HD Status: Acute (5) Generalized weakness Status: Acute
[2016-11-22 06:44] LABS: POTASSIUM 4.2 mmol/L (3.6-5.2)
[2016-11-22 06:46] LABS: ALB/GLOB RATIO 0.6 (1.0-2.1); TOTAL PROTEIN 7.1 g/dL (6.3-8.3)
[2016-11-22 06:47] LABS: CALCIUM 9.1 mg/dl (8.6-10.4)
[2016-11-22 06:54] LABS: BASO # 0.1 K/uL (0.0-0.2); BASO % 0.5 % (0.0-2.0); EOS # 0.2 K/uL (0.0-0.7); EOS % 1.5 % (0.0-4.0); HEMATOCRIT 30.3 % (34.0-47.0); LYMPH % 8.6 % (20.0-40.0); MEAN CELL VOLUME 86.5 fL (81.0-99.0); MEAN CORPUSCULAR HEMOGLOBIN 28.3 pg (27.0-31.0); MEAN CORPUSCULAR HGB CONC 32.7 g/dL (33.0-37.0); MONO # 1.4 K/uL (0.0-0.8); MONO % 12.1 % (0.0-10.0); PLATELET COUNT 227 K/uL (130-400); RED CELL DISTRIBUTION WIDTH 15.5 % (11.5-14.5); WHITE BLOOD COUNT 11.8 K/uL (4.8-10.8)
[2016-11-22] MEDS: Gentamicin 80 mg in 0.9% NS 80 MG/100 ML BAG IVPB SCH (08:00)
[2016-11-22] MEDS: Vancomycin 1 gm/NS 200 ml 1 GM/200 ML BAG IVPB SCH (08:30)
[2016-11-22 08:53] LABS: EOSINOPHIL 1 % (0-4); NEUTROPHIL 76 % (50-75); TOTAL CELLS COUNTED 100
[2016-11-22] MEDS: Lactobacillus Acidophilus 500 MU Cap PO SCH ×2 (09:19→17:24)
[2016-11-22] MEDS: Epoetin Alfa 10,000 unit/ml Dialysis IV SCH (10:34)
--- NOTE | 2016-11-22 12:32 | CP.PCM.PN ---
Subjective - Date & Time of Evaluation Date of Evaluation: 11/22/16 Time of Evaluation: 12:30 - Subjective Subjective: remains afebrile, dialysis unremarkable. still w/ abdominal tenderness iv antibiotics noted hd today bp high, noted Objective - Vital Signs/Intake and Output Vital Signs (last 24 hours): Temp Pulse Resp BP Pulse Ox 97.6 F 101 H 20 173/100 H 100 11/22/16 09:20 11/22/16 09:20 11/22/16 09:20 11/22/16 11:50 11/22/16 09:20 - Medications Medications: Current Medications Acetaminophen (Tylenol 325mg Tab) 650 mg PO Q6 PRN PRN Reason: temp > 99.5 Last Admin: 11/21/16 19:06 Dose: 650 mg Benztropine Mesylate (Cogentin) 1 mg PO [facility] Last Admin: 11/21/16 21:01 Dose: 1 mg Epoetin Mik (Procrit) 10,000 [place] [facility] Last Admin: 11/22/16 10:34 Dose: 10,000 unit Folic Acid (Folic Acid) 1 mg PO DAILY [facility] Last Admin: 11/22/16 09:18 Dose: Not Given Gentamicin Sulfate/Sodium Chloride (Gentamicin Iv 80 Mg Premix) 80 mg in 100 mls @ 100 mls/hr IVPB [facility] Last Admin: 11/22/16 08:00 Dose: 100 mls/hr Vancomycin/Sodium Chloride (Vancocin) 1 gm in 200 mls @ 133.333 mls/hr IVPB MWF [facility] Stop: 11/23/16 09:01 Last Admin: 11/22/16 08:30 Dose: 133.333 mls/hr Vancomycin/Sodium Chloride (Vancocin) 1 gm in 200 mls @ 133.333 mls/hr IVPB STAT [facility] Stop: 11/22/16 17:01 Cefepime HCl (Maxipime Iv 1 Gm Premix) 1 gm in 50 mls @ 100 mls/hr IVPB Q24H [facility] Last Admin: 11/21/16 17:43 Dose: 100 mls/hr Lactobacillus Acidophilus (Bacid Acidophilus) 1 cap PO BID [facility] Last Admin: 11/22/16 09:19 Dose: Not Given Lactulose (Enulose) 20 gm PO [facility] Last Admin: 11/21/16 22:10 Dose: Not Given Metoclopramide HCl (Reglan) 10 mg PO [facility]D [facility] Last Admin: 11/22/16 10:52 Dose: Not Given Nitroglycerin (Nitrostat Sl Tab) 0.4 mg SL Q15M PRN PRN Reason: chest pain - Labs Labs: 11/22/16 06:30 11/22/16 06:30 PT 12.9 SECONDS (9.7-12.2) H 11/11/16 13:20 INR 1.1 11/11/16 13:20 APTT 50 SECONDS (21-34) H D 11/13/16 14:11 - Constitutional Appears: No Acute Distress, Older Than Stated Age, Chronically Ill - Head Exam Head Exam: NORMAL INSPECTION - Eye Exam Eye Exam: Normal appearance - ENT Exam ENT Exam: Mucous Membranes Dry, Normal Exam - Neck Exam Neck Exam: Normal Inspection - Respiratory Exam Respiratory Exam: Clear to Ausculation Bilateral, NORMAL BREATHING PATTERN - Cardiovascular Exam Cardiovascular Exam: REGULAR RHYTHM, RRR - GI/Abdominal Exam GI & Abdominal Exam: Distended, Soft, Tenderness - Back Exam Back Exam: NORMAL INSPECTION Assessment and Plan (1) Hypertension Status: Acute (2) ESRD (end stage renal disease) Status: Acute (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
--- NOTE | 2016-11-22 15:49 | CP.PCM.PN ---
Subjective - Date & Time of Evaluation Date of Evaluation: 11/22/16 Time of Evaluation: 09:00 - Subjective Subjective: less abd pain no fever had vein mapping cont iv rx Objective - Vital Signs/Intake and Output Vital Signs (last 24 hours): Temp Pulse Resp BP Pulse Ox 97.9 F 96 H 18 171/96 H 100 11/22/16 12:20 11/22/16 12:20 11/22/16 12:20 11/22/16 12:20 11/22/16 12:20 - Medications Medications: Current Medications Acetaminophen (Tylenol 325mg Tab) 650 mg PO Q6 PRN PRN Reason: temp > 99.5 Last Admin: 11/22/16 13:48 Dose: 650 mg Benztropine Mesylate (Cogentin) 1 mg PO [facility] Last Admin: 11/21/16 21:01 Dose: 1 mg Epoetin Mik (Procrit) 10,000 unit [place] [facility] Last Admin: 11/22/16 10:34 Dose: 10,000 unit Folic Acid (Folic Acid) 1 mg PO DAILY [facility] Last Admin: 11/22/16 09:18 Dose: Not Given Gentamicin Sulfate/Sodium Chloride (Gentamicin Iv 80 Mg Premix) 80 mg in 100 mls @ 100 mls/hr IVPB MWF [facility] Last Admin: 11/22/16 08:00 Dose: 100 mls/hr Vancomycin/Sodium Chloride (Vancocin) 1 gm in 200 mls @ 133.333 mls/hr IVPB MWF [facility] Stop: 11/23/16 09:01 Last Admin: 11/22/16 08:30 Dose: 133.333 mls/hr Vancomycin/Sodium Chloride (Vancocin) 1 gm in 200 mls @ 133.333 mls/hr IVPB STAT [facility] Stop: 11/22/16 17:01 Cefepime HCl (Maxipime Iv 1 Gm Premix) 1 gm in 50 mls @ 100 mls/hr IVPB Q24H [facility] Last Admin: 11/21/16 17:43 Dose: 100 mls/hr Lactobacillus Acidophilus (Bacid Acidophilus) 1 cap PO BID [facility] Last Admin: 11/22/16 09:19 Dose: Not Given Lactulose (Enulose) 20 gm PO [facility] Last Admin: 11/21/16 22:10 Dose: Not Given Losartan Potassium (Cozaar) 100 mg PO DAILY [facility] Last Admin: 11/22/16 12:44 Dose: 100 mg Metoclopramide HCl (Reglan) 10 mg PO ACLD [facility] Last Admin: 11/22/16 10:52 Dose: Not Given Nitroglycerin (Nitrostat Sl Tab) 0.4 mg SL Q15M PRN PRN Reason: chest pain - Labs Labs: 11/22/16 06:30 11/22/16 06:30 PT 12.9 SECONDS (9.7-12.2) H 11/11/16 13:20 INR 1.1 11/11/16 13:20 APTT 50 SECONDS (21-34) H D 11/13/16 14:11 - Constitutional Appears: Non-toxic, Chronically Ill - Head Exam Head Exam: NORMOCEPHALIC - Eye Exam Eye Exam: PERRL. absent: Scleral icterus - Respiratory Exam Respiratory Exam: Clear to Ausculation Bilateral - Cardiovascular Exam Cardiovascular Exam: REGULAR RHYTHM, +S1, +S2 - GI/Abdominal Exam GI & Abdominal Exam: Distended, Soft, Tenderness, Diminished Bowel Sounds - Rectal Exam Rectal Exam: Deferred - Exam Exam: NORMAL INSPECTION - Extremities Exam Extremities Exam: absent: Pedal Edema - Back Exam Back Exam: absent: CVA tenderness (L), CVA tenderness (R) - Neurological Exam Neurological Exam: Alert, Awake, Oriented x3 - Psychiatric Exam Psychiatric exam: Normal Mood - Skin Skin Exam: Dry Assessment and Plan (1) ESRD (end stage renal disease) Status: Acute (2) Intra-abdominal abscess Status: Resolved - Assessment and Plan (Free Text) Assessment: for av fistula cont vanco/ cefepime for now
[2016-11-22] MEDS: Cefepime IV 1 gm in Dextrose 1 GM/50 ML BAG IVPB SCH (17:25)
--- NOTE | 2016-11-22 18:34 | VASCLAB ---
PROCEDURE: Upper Extremity Venous Duplex Exam HISTORY: pre-op assessment PRIORS: None. TECHNIQUE: Bilateral upper extremity, internal jugular, subclavian, axillary, brachial, ulnar, radial, basilic and upper cephalic veins were evaluated. Flow was assessed with color Doppler, compressibility, assessment of phasic flow and augmentation response. Report prepared by ROSA Bailey, RVT FINDINGS: RIGHT: 1. Internal Jugular Vein: Compressibility - Fully compressible: Thrombus - None : Flow - Phasic 2. Subclavian Vein:Compressibility - Fully compressible: Thrombus - None : Flow - Phasic 3. Axillary Vein: Compressibility - Fully compressible: Thrombus - None 4. Brachial Vein: Compressibility - Fully compressible: Thrombus - None 5. Ulnar Vein:Compressibility - Fully compressible: Thrombus - None 6. Radial Vein:Compressibility - Fully compressible: Thrombus - None 7. Cephalic Vein: Compressibility - Fully compressible: thrombus - None 7.1. Upper Arm: Proximal Diameter: 0.24cm. Mid Diameter: 0.22cm. Distal Diameter: 0.24cm. Antecubital Fossa: 0.44cm. 7.2. Forearm: Proximal Diameter: 0.18cm. 8. Basilic Vein:Compressibility - Fully compressible: thrombus - None 8.1. Upper Arm:Proximal Diameter: 0.17cm. Mid Diameter: 0.23cm. Distal Diameter: 0.17cm. LEFT: 1. Internal Jugular Vein: Compressibility - Fully compressible: Thrombus - None : Flow - Phasic 2. Subclavian Vein:Compressibility - Fully compressible: Thrombus - None : Flow - Phasic 3. Axillary Vein: Compressibility - Fully compressible: Thrombus - None 4. Brachial Vein: Compressibility - Fully compressible: Thrombus - None 5. Ulnar Vein:Compressibility - Fully compressible: Thrombus - None 6. Radial Vein:Compressibility - Fully compressible: Thrombus - None 7. Cephalic Vein: Compressibility - Fully compressible: thrombus - None 7.1. Upper Arm: Proximal Diameter: 0.25cm. Mid Diameter: 0.25cm. Distal Diameter: 0.26cm. Antecubital Fossa: 0.36cm. 8. Basilic Vein:Compressibility - Fully compressible: thrombus - None 8.1. Upper Arm:Proximal Diameter: 0.34cm. Mid Diameter: 0.17cm. Distal Diameter: 0.16cm. OTHER FINDINGS: Right: None. Left: None. IMPRESSION: Right: Diameter measurements of the right cephalic vein is measured between 0.18 cm and 0.44 cm and basilic vein is measured between 0.23 cm and 0.17 cm. Left: Diameter measurements of the left cephalic vein is measured between 0.25 cm and 0.36 cm and basilic vein is measured between 0.16cm and 0.34cm.
[2016-11-23] MEDS: Lactobacillus Acidophilus 500 MU Cap PO SCH ×2 (09:40→17:15)
--- NOTE | 2016-11-23 10:20 | CP.PCM.PN ---
Subjective - Date & Time of Evaluation Date of Evaluation: 11/23/16 Time of Evaluation: 10:19 - Subjective Subjective: will plan av access right arm for this , assuming MWF Hd schedule continues Objective - Vital Signs/Intake and Output Vital Signs (last 24 hours): Temp Pulse Resp BP Pulse Ox 97.4 F L 99 H 20 152/86 H 100 11/23/16 07:22 11/23/16 07:22 11/23/16 07:22 11/23/16 07:22 11/23/16 07:22 Intake and Output: 11/23/16 11/23/16 06:59 18:59 Intake Total 250 Balance 250 - Medications Medications: Current Medications Acetaminophen (Tylenol 325mg Tab) 650 mg PO Q6 PRN PRN Reason: temp > 99.5 Last Admin: 11/22/16 13:48 Dose: 650 mg Benztropine Mesylate (Cogentin) 1 mg PO [facility] Last Admin: 11/22/16 21:02 Dose: 1 mg Epoetin Mik (Procrit) 10,000 unit IV [facility] [place] Last Admin: 11/22/16 10:34 Dose: 10,000 unit Folic Acid (Folic Acid) 1 mg PO DAILY [facility] Last Admin: 11/23/16 09:40 Dose: 1 mg Gentamicin Sulfate/Sodium Chloride (Gentamicin Iv 80 Mg Premix) 80 mg in 100 mls @ 100 mls/hr IVPB MWF [facility] Last Admin: 11/22/16 08:00 Dose: 100 mls/hr Cefepime HCl (Maxipime Iv 1 Gm Premix) 1 gm in 50 mls @ 100 mls/hr IVPB Q24H [facility] Last Admin: 11/22/16 17:25 Dose: 100 mls/hr Lactobacillus Acidophilus (Bacid Acidophilus) 1 cap PO BID [facility] Last Admin: 11/23/16 09:40 Dose: 1 cap Lactulose (Enulose) 20 gm PO [facility] Last Admin: 11/22/16 21:03 Dose: Not Given Losartan Potassium (Cozaar) 100 mg PO DAILY [facility] Last Admin: 11/23/16 09:40 Dose: 100 mg Metoclopramide HCl (Reglan) 10 mg PO ACLD [facility] Last Admin: 11/22/16 17:26 Dose: Not Given Nitroglycerin (Nitrostat Sl Tab) 0.4 mg SL Q15M PRN PRN Reason: chest pain - Labs Labs: 11/22/16 06:30 11/22/16 06:30 PT 12.9 SECONDS (9.7-12.2) H 11/11/16 13:20 INR 1.1 11/11/16 13:20 APTT 50 SECONDS (21-34) H D 11/13/16 14:11
--- NOTE | 2016-11-23 10:51 | CP.PCM.PN ---
Subjective - Date & Time of Evaluation Date of Evaluation: 11/23/16 Time of Evaluation: 10:00 - Subjective Subjective: still with some abdominal drainage no fever no chest pain no sob no nausea no vomiting abdomen hurts on moving no urine output no rash Objective - Vital Signs/Intake and Output Vital Signs (last 24 hours): Temp Pulse Resp BP Pulse Ox 97.4 F L 99 H 20 152/86 H 100 11/23/16 07:22 11/23/16 07:22 11/23/16 07:22 11/23/16 07:22 11/23/16 07:22 Intake and Output: 11/23/16 11/23/16 06:59 18:59 Intake Total 250 Balance 250 - Medications Medications: Current Medications Acetaminophen (Tylenol 325mg Tab) 650 mg PO Q6 PRN PRN Reason: temp > 99.5 Last Admin: 11/22/16 13:48 Dose: 650 mg Benztropine Mesylate (Cogentin) 1 mg PO [facility] Last Admin: 11/22/16 21:02 Dose: 1 mg Epoetin Mik (Procrit) 10,000 unit IV [facility] [place] Last Admin: 11/22/16 10:34 Dose: 10,000 unit Folic Acid (Folic Acid) 1 mg PO DAILY [facility] Last Admin: 11/23/16 09:40 Dose: 1 mg Gentamicin Sulfate/Sodium Chloride (Gentamicin Iv 80 Mg Premix) 80 mg in 100 mls @ 100 mls/hr IVPB MWF [facility] Last Admin: 11/22/16 08:00 Dose: 100 mls/hr Cefepime HCl (Maxipime Iv 1 Gm Premix) 1 gm in 50 mls @ 100 mls/hr IVPB Q24H [facility] Last Admin: 11/22/16 17:25 Dose: 100 mls/hr Lactobacillus Acidophilus (Bacid Acidophilus) 1 cap PO BID [facility] Last Admin: 11/23/16 09:40 Dose: 1 cap Lactulose (Enulose) 20 gm PO [facility] Last Admin: 11/22/16 21:03 Dose: Not Given Losartan Potassium (Cozaar) 100 mg PO DAILY [facility] Last Admin: 11/23/16 09:40 Dose: 100 mg Metoclopramide HCl (Reglan) 10 mg PO ACLD [facility] Last Admin: 11/22/16 17:26 Dose: Not Given Nitroglycerin (Nitrostat Sl Tab) 0.4 mg SL Q15M PRN PRN Reason: chest pain - Labs Labs: 11/22/16 06:30 11/22/16 06:30 PT 12.9 SECONDS (9.7-12.2) H 11/11/16 13:20 INR 1.1 11/11/16 13:20 APTT 50 SECONDS (21-34) H D 11/13/16 14:11 - Constitutional Appears: Non-toxic, No Acute Distress - Eye Exam Eye Exam: EOMI Pupil Exam: NORMAL ACCOMODATION - ENT Exam ENT Exam: Mucous Membranes Moist - Neck Exam Neck Exam: Full ROM. absent: Lymphadenopathy - Respiratory Exam Respiratory Exam: NORMAL BREATHING PATTERN. absent: Accessory Muscle Use - Cardiovascular Exam Cardiovascular Exam: REGULAR RHYTHM. absent: Rubs - GI/Abdominal Exam GI & Abdominal Exam: Distended Additional comments: ventral incision with bandage which is wet - Extremities Exam Extremities Exam: absent: Pedal Edema - Neurological Exam Neurological Exam: Alert, Oriented x3 Assessment and Plan - Assessment and Plan (Free Text) Plan: s/p peritonitis with intraabdominal abscess on iv ab for [facility] next week maint HD
--- NOTE | 2016-11-23 12:41 | CP.PCM.PN ---
Subjective - Date & Time of Evaluation Date of Evaluation: 11/22/16 Time of Evaluation: 17:37 - Subjective Subjective: LATE ENTRY FOR 11/22/2016: > Nursee on duty called re: pt discharge. DATA REVIEWER had talked to Surgery re: possible discharge and was cleared from Surgical standponit. DATA REVIEWER was on floor, discussed with her that this is not primarily a surgical case at the [facility] and the infection is driving this admission. This author unaware of any clearance for discharge, and pt still has drainage from abscess drainange site. Tenderness also present, though much less than pre-draiinage. Asked DATA REVIEWER and Case Mgt to inform [facility] where pt accepted that she may be staying only for a few days, then coming back. This has posed problems for me in the past and wanted to make sure everyone on the same page. > No communication received from SW/Case Mgt after this conversation. > Pt remains stable hemodynamically, though BP slightly elevated still despite hemodialysis. Objective - Vital Signs/Intake and Output Vital Signs (last 24 hours): Temp Pulse Resp BP Pulse Ox 97.4 F L 99 H 20 152/86 H 100 11/23/16 07:22 11/23/16 07:22 11/23/16 07:22 11/23/16 07:22 11/23/16 07:22 Intake and Output: 11/23/16 11/23/16 06:59 18:59 Intake Total 250 Balance 250 - Medications Medications: Current Medications Acetaminophen (Tylenol 325mg Tab) 650 mg PO Q6 PRN PRN Reason: temp > 99.5 Last Admin: 11/22/16 13:48 Dose: 650 mg Benztropine Mesylate (Cogentin) 1 mg PO HS [facility] Last Admin: 11/22/16 21:02 Dose: 1 mg Epoetin Mik (Procrit) 10,000 [place] [facility] [place] Admin: 11/22/16 10:34 Dose: 10,000 unit Folic Acid (Folic Acid) 1 mg PO DAILY [facility] Last Admin: 11/23/16 09:40 Dose: 1 mg Gentamicin Sulfate/Sodium Chloride (Gentamicin Iv 80 Mg Premix) 80 mg in 100 mls @ 100 mls/hr [place] [facility] [place] Admin: 11/22/16 08:00 Dose: 100 mls/hr Cefepime HCl (Maxipime Iv 1 Gm Premix) 1 gm in 50 mls @ 100 mls/hr IVPB Q24H [facility] Last Admin: 11/22/16 17:25 Dose: 100 mls/hr Lactobacillus Acidophilus (Bacid Acidophilus) 1 cap PO BID [facility] Last Admin: 11/23/16 09:40 Dose: 1 cap Lactulose (Enulose) 20 gm PO HS [facility] Last Admin: 11/22/16 21:03 Dose: Not Given Losartan Potassium (Cozaar) 100 mg PO DAILY [facility] Last Admin: 11/23/16 09:40 Dose: 100 mg Metoclopramide HCl (Reglan) 10 mg PO ACLD [facility] Last Admin: 11/23/16 12:04 Dose: Not Given Nitroglycerin (Nitrostat Sl Tab) 0.4 mg SL Q15M PRN PRN Reason: chest pain - Labs Labs: 11/22/16 06:30 11/22/16 06:30 PT 12.9 SECONDS (9.7-12.2) H 11/11/16 13:20 INR 1.1 11/11/16 13:20 APTT 50 SECONDS (21-34) H D 11/13/16 14:11 - Constitutional Appears: No Acute Distress - Head Exam Head Exam: NORMAL INSPECTION, NORMOCEPHALIC - Eye Exam Eye Exam: Normal appearance Pupil Exam: NORMAL ACCOMODATION - ENT Exam ENT Exam: Mucous Membranes Moist, Normal Exam - Neck Exam Neck Exam: Normal Inspection - Respiratory Exam Respiratory Exam: Clear to Ausculation Bilateral - Cardiovascular Exam Cardiovascular Exam: REGULAR RHYTHM - GI/Abdominal Exam GI & Abdominal Exam: Normal Bowel Sounds Additional comments: + tenderness at drainage incision site - Rectal Exam Rectal Exam: Deferred - Extremities Exam Extremities Exam: Normal Inspection - Back Exam Back Exam: NORMAL INSPECTION - Neurological Exam Neurological Exam: Alert Neuro motor strength exam: Left Upper Extremity: 4, Right Upper Extremity: 4, Left Lower Extremity: 3, Right Lower Extremity: 3 - Psychiatric Exam Psychiatric exam: Normal Affect, Normal Mood - Skin Skin Exam: Normal Color, Warm Assessment and Plan (1) Anemia of chronic disease Assessment & Plan: stable after BT Status: Chronic (2) Gastroparesis Assessment & Plan: + BM Status: Chronic (3) Intra-abdominal abscess Assessment & Plan: slightly ltender site, WBC improving Status: Acute (4) ESRD (end stage renal disease) Status: Acute (5) Generalized weakness Assessment & Plan: on HD Status: Acute
[2016-11-23] MEDS: Albuterol 0.083% Inhal Sol (2.5 mg/3 mL) UD INH SCH ×2 (14:10→14:23)
--- NOTE | 2016-11-23 15:29 | RAD ---
HISTORY: Rapid response. Shortness of breath on overall spur. Portable semi erect study 14:15. COMPARISON: 11/11/2016. FINDINGS: LUNGS: No active pulmonary disease. Improving aeration at the lung bases. PLEURA: No significant pleural effusion identified, no pneumothorax apparent. CARDIOVASCULAR: Venous access catheter in stable, satisfactory position. PICC line in satisfactory position a new finding compared to the prior study. No radiographic findings to suggest acute or significant cardiovascular disease. OSSEOUS STRUCTURES: No significant abnormalities. VISUALIZED UPPER ABDOMEN: Normal. OTHER FINDINGS: None. IMPRESSION: No active pulmonary disease. No significant interval change compared to the prior examination(s).
[2016-11-23] MEDS: Cefepime IV 1 gm in Dextrose 1 GM/50 ML BAG IVPB SCH (18:46)
[2016-11-23] MEDS: Albuterol-Ipratrop 3 mg / 0.5 (3 ml) UD INH SCH ×2 (19:39)
--- NOTE | 2016-11-23 19:41 | CP.PCM.PN ---
Subjective - Date & Time of Evaluation Date of Evaluation: 11/23/16 Time of Evaluation: 19:37 - Subjective Subjective: Pt seen and examined at bedside. Had discussed pt's case with ANYI Jacobsen today for possible discharge to [facility]. Informed her that SW and Case Mgt, though they had set things up for possible transfer yesterday, did not get back to me on my question of pt going to [facility] and returning again for AV fistula placement later on next week. Advised them of plans as documented in Surgery notes. > Discussed case with ID as well in that length of IV abx still unclear, and ID suggests continuing IV abx for at least 2 weeks or until the day of surgery to avert infection of new appliance. Provided this info to ANP as well. > While all this was being discussed, received a call from Nurse on Duty that pt was sudeenly short of breath. Nurse had placed pt on O2, and I requested respiratory treatments be given. Pt seen also by Jez EDWARDS and ANP and Rapid Response called on pt. Pt's SOB cleared after neb treatments given. > Pt's abdominal wound continues to drain, and initially was clear, but today, re-examination of would produced moderately cloudy discharge. Cultures obtained by me. This coincides with increasing pain over the previous site of the periitoneal abscess which was drained recently. An induration with tenderness noted at the same site as before, and pt's family noted that it appeared to be growing. Will order CT scan of abdomen with IV contrast 11/25/16 prior to hemodialysis to prevent dye from circulating continuously in patient for 48 hours. Objective - Vital Signs/Intake and Output Vital Signs (last 24 hours): Temp Pulse Resp BP Pulse Ox 98.1 F 101 H 20 171/92 H 100 11/23/16 17:15 11/23/16 17:15 11/23/16 17:15 11/23/16 17:15 11/23/16 17:15 Intake and Output: 11/23/16 11/24/16 18:59 06:59 Intake Total 220 Balance 220 - Medications Medications: Current Medications Acetaminophen (Tylenol 325mg Tab) 650 mg PO Q6 PRN PRN Reason: temp > 99.5 Last Admin: 11/23/16 18:44 Dose: 650 mg Albuterol/Ipratropium (Duoneb 3 Mg/0.5 Mg (3 Ml) Ud) 3 ml INH RQ4 [facility] Benztropine Mesylate (Cogentin) 1 mg PO HS [facility] Last Admin: 11/22/16 21:02 Dose: 1 mg Epoetin Mik ([facility]crit) [facility] Last Admin: 11/22/16 10:34 Dose: 10,000 unit Folic Acid (Folic Acid) 1 mg PO DAILY [facility] Last Admin: 11/23/16 09:40 Dose: 1 mg Gentamicin Sulfate/Sodium Chloride (Gentamicin Iv 80 Mg Premix) 80 mg in 100 mls @ 100 mls/hr IVPB MWF [facility] Last Admin: 11/22/16 08:00 Dose: 100 mls/hr Cefepime HCl (Maxipime Iv 1 Gm Premix) 1 gm in 50 mls @ 100 mls/hr IVPB Q24H [facility] Last Admin: 11/23/16 18:46 Dose: 100 mls/hr Lactobacillus Acidophilus (Bacid Acidophilus) 1 cap PO BID [facility] Last Admin: 11/23/16 17:15 Dose: 1 cap Lactulose (Enulose) 20 gm PO [facility] Last Admin: 11/22/16 21:03 Dose: Not Given Losartan Potassium (Cozaar) 100 mg PO DAILY [facility] Last Admin: 11/23/16 09:40 Dose: 100 mg Metoclopramide HCl (Reglan) 10 mg PO ACLD [facility] Last Admin: 11/23/16 17:12 Dose: 10 mg Nitroglycerin (Nitrostat Sl Tab) 0.4 mg SL Q15M PRN PRN Reason: chest pain - Labs Labs: 11/22/16 06:30 11/22/16 06:30 PT 12.9 SECONDS (9.7-12.2) H 11/11/16 13:20 INR 1.1 11/11/16 13:20 APTT 50 SECONDS (21-34) H D 11/13/16 14:11 - Constitutional Appears: No Acute Distress - Head Exam Head Exam: NORMAL INSPECTION - Eye Exam Eye Exam: Normal appearance Pupil Exam: NORMAL ACCOMODATION - ENT Exam ENT Exam: Mucous Membranes Moist, Normal Exam - Neck Exam Neck Exam: Normal Inspection - Respiratory Exam Respiratory Exam: Clear to Ausculation Bilateral, NORMAL BREATHING PATTERN - Cardiovascular Exam Cardiovascular Exam: REGULAR RHYTHM - GI/Abdominal Exam GI & Abdominal Exam: Firm, Tenderness Additional comments: > to the right of the umbilicus, indurated, approx 4" in diameter, and inferolateral to the abdominal wound > above induration tender with firm palpation - Extremities Exam Extremities Exam: Normal Inspection - Neurological Exam Neurological Exam: Alert, Awake, CN II-XII Intact, Normal Gait, Oriented x3 Neuro motor strength exam: Left Upper Extremity: 4, Right Upper Extremity: 4, Left Lower Extremity: 3, Right Lower Extremity: 3 - Psychiatric Exam Psychiatric exam: Normal Affect, Normal Mood - Skin Skin Exam: Dry, Intact, Normal Color, Warm Assessment and Plan (1) Intra-abdominal abscess Assessment & Plan: may be reaccumulating again, plan on CT scan 5/8 AM Status: Acute (2) Anemia of chronic disease Assessment & Plan: no new bleeding/declines in hemoglobin Status: Chronic (3) Gastroparesis Assessment & Plan: dc promotility agent, says it makes her twitch. add colace instead Status: Resolved (4) ESRD (end stage renal disease) Assessment & Plan: now on HD Status: Acute (5) Generalized weakness Assessment & Plan: will need rehab Status: Acute
[2016-11-23] MEDS: Labetalol Hydrochloride 300 mg Tab PO SCH (22:00)
[2016-11-24] MEDS: Albuterol-Ipratrop 3 mg / 0.5 (3 ml) UD INH SCH ×6 (00:57→20:25)
[2016-11-24 06:23] LABS: BASO % 0.3 % (0.0-2.0); EOS # 0.2 K/uL (0.0-0.7); EOS % 1.6 % (0.0-4.0); LYMPH # 1.2 K/uL (1.0-4.3); LYMPH % 10.2 % (20.0-40.0); MEAN CELL VOLUME 86.5 fL (81.0-99.0); MEAN CORPUSCULAR HEMOGLOBIN 28.1 pg (27.0-31.0); MEAN CORPUSCULAR HGB CONC 32.5 g/dL (33.0-37.0); MEAN PLATELET VOLUME 8.8 fL (7.2-11.7); MONO % 9.1 % (0.0-10.0); RED CELL DISTRIBUTION WIDTH 15.5 % (11.5-14.5); WHITE BLOOD COUNT 11.4 K/uL (4.8-10.8)
[2016-11-24 06:30] LABS: POTASSIUM 4.8 mmol/L (3.6-5.2)
[2016-11-24 06:34] LABS: CALCIUM 9.6 mg/dl (8.6-10.4); MAGNESIUM 1.8 mg/dL (1.6-2.3); PHOSPHOROUS 8.3 mg/dL (2.5-4.5)
[2016-11-24] MEDS: Lactobacillus Acidophilus 500 MU Cap PO SCH ×2 (09:32→22:19)
[2016-11-24] MEDS: Labetalol Hydrochloride 300 mg Tab PO SCH ×2 (09:33→22:36)
--- NOTE | 2016-11-24 10:08 | CP.PCM.CON ---
History of Present Illness - History of Present Illness History of Present Illness: reason for consultation: shortness of breath HPI: 70 yo F[place]ian female, on peritoneal dialysis, was admitted at [facility] rehab after a bout of peritonitis which was treated at [facility]. pt was admitted to [facility] [place] [facility] for vomiting during hemodialysis. CAT scan of the abdomen consistent with intra-abdominal abscess and being treated by infectious disease. Yesterday a rapid response was called for shortness of breath which responded to nebulizer treatment. now patient seen lying comfortably in no acute distress. Chest x-ray showed no acute infiltrate. Review of Systems - Review of Systems Systems not reviewed;Unavailable: Uncooperative, Language Barrier Past Patient History - Infectious Disease Hx of Infectious Diseases: None - Past Medical History & Family History Past Medical History?: Yes - Past Social History Smoking Status: Never Smoked - CARDIAC Hx Cardiac Disorders: Yes Hx Hypertension: Yes - PULMONARY Hx Respiratory Disorders: No - NEUROLOGICAL Hx Neurological Disorder: No - HEENT Hx HEENT Problems: No - RENAL Hx Renal Failure: Yes (ESRD) - ENDOCRINE/METABOLIC Hx Endocrine Disorders: No - HEMATOLOGICAL/ONCOLOGICAL Hx Blood Disorders: No - INTEGUMENTARY Hx Dermatological Problems: No - MUSCULOSKELETAL/RHEUMATOLOGICAL Hx Musculoskeletal Disorders: No Hx Falls: No - GASTROINTESTINAL Hx Gastrointestinal Disorders: No - GENITOURINARY/GYNECOLOGICAL Hx Genitourinary Disorders: No - PSYCHIATRIC Hx Substance Use: No - SURGICAL HISTORY Hx Surgeries: Yes Hx Vascular Surgery: Yes Hx Vascular Access Device: Yes - ANESTHESIA Hx Anesthesia: Yes Hx Anesthesia Reactions: No Meds Home Medications: Home Medication List Medication Instructions Recorded Confirmed Type Acetaminophen [Tylenol 325mg tab] 650 mg PO Q6 PRN tab 11/20/16 Rx Benztropine [Cogentin] 1 mg PO HS tab 11/20/16 Rx Epoetin Mik [Procrit] 10,000 unit IV MWF ml 11/20/16 Rx Folic Acid 1 mg PO DAILY tab 11/20/16 Rx Heparin 4,100 units IVP MWF vial 11/20/16 Rx Lactobacillus Acidophilus [Bacid 1 cap PO BID cap 11/20/16 Rx Acidophilus] Losartan [Cozaar] 50 mg PO DAILY tab 11/20/16 Rx Meropenem [Merrem IV] 500 mg IVPB Q12H vial 11/20/16 Rx Metoclopramide [Reglan] 10 mg PO ACLD tab 11/20/16 Rx Allergies/Adverse Reactions: Allergies Allergy/AdvReac Type Severity Reaction Status Date / Time No Known Allergies Allergy Verified 11/11/16 15:52 - Medications Medications: Current Medications Acetaminophen (Tylenol 325mg Tab) 650 mg PO Q6 PRN PRN Reason: temp > 99.5 Last Admin: 11/23/16 18:44 Dose: 650 mg Albuterol/Ipratropium (Duoneb 3 Mg/0.5 Mg (3 Ml) Ud) 3 ml INH RQ4 [facility] Last Admin: 11/24/16 08:28 Dose: 3 ml Amlodipine Besylate (Norvasc) 5 mg PO HS [facility] Last Admin: 11/23/16 22:01 Dose: 5 mg Docusate Sodium (Colace) 100 mg PO HS [facility] Last Admin: 11/23/16 22:00 Dose: 100 mg Epoetin Mik (Procrit) 10,000 unit IV MWF [facility] Last Admin: 11/22/16 10:34 Dose: 10,000 unit Folic Acid (Folic Acid) 1 mg PO DAILY [facility] Last Admin: 11/24/16 09:32 Dose: 1 mg Gentamicin Sulfate/Sodium Chloride (Gentamicin Iv 80 Mg Premix) 80 mg in 100 mls @ 100 mls/hr IVPB MWF [facility] Last Admin: 11/22/16 08:00 Dose: 100 mls/hr Cefepime HCl (Maxipime Iv 1 Gm Premix) 1 gm in 50 mls @ 100 mls/hr IVPB Q24H [facility] Last Admin: 11/23/16 18:46 Dose: 100 mls/hr Labetalol HCl (Normodyne) 300 mg PO Q12 [facility] Last Admin: 11/24/16 09:33 Dose: 300 mg Lactobacillus Acidophilus (Bacid Acidophilus) 1 cap PO BID [facility] Last Admin: 11/24/16 09:32 Dose: 1 cap Lactulose (Enulose) 20 gm PO HS [facility] Last Admin: 11/23/16 22:00 Dose: Not Given Losartan Potassium (Cozaar) 100 mg PO DAILY [facility] Last Admin: 11/24/16 09:32 Dose: 100 mg Nitroglycerin (Nitrostat Sl Tab) 0.4 mg SL Q15M PRN PRN Reason: chest pain Physical Exam - Head Exam Head Exam: ATRAUMATIC, NORMOCEPHALIC - Eye Exam Eye Exam: Normal appearance - ENT Exam ENT Exam: Mucous Membranes Moist - Neck Exam Neck exam: Positive for: Normal Inspection - Respiratory Exam Respiratory Exam: Clear to Auscultation Bilateral - Cardiovascular Exam Cardiovascular Exam: REGULAR RHYTHM - GI/Abdominal Exam GI & Abdominal Exam: Tenderness - Extremities Exam Extremities exam: Positive for: pedal edema Results - Vital Signs Recent Vital Signs: Last Vital Signs Temp 97.8 F 11/24/16 07:20 Pulse 91 H 11/24/16 07:20 Resp 20 11/24/16 07:20 BP 153/56 H 11/24/16 07:20 Pulse Ox 100 11/24/16 07:20 - Labs Result Diagrams: 11/24/16 06:19 11/24/16 06:19 Labs: Laboratory Results - last 24 hr 11/23/16 11/23/16 11/23/16 14:00 14:26 16:50 WBC RBC Hgb Hct MCV MCH MCHC RDW Plt Count MPV Neut % (Auto) Lymph % (Auto) Cassia % (Auto) Eos % (Auto) Baso % (Auto) Neut # Lymph # Cassia # Eos # Baso # Sodium Potassium Chloride Carbon Dioxide Anion Gap BUN Creatinine Est GFR ( Amer) Est GFR (Non-Af Amer) POC Glucose (mg/dL) 205 H 183 H Random Glucose Lactic Acid Calcium Phosphorus Magnesium Total Creatine Kinase < 20 L CK-MB (Mass) 0.37 Troponin I, Quant 0.0140 NT-Pro-B Natriuret Pep 11/23/16 11/24/16 11/24/16 22:50 06:11 06:19 WBC 11.4 H RBC 3.59 L Hgb 10.1 L Hct 31.0 L MCV 86.5 MCH 28.1 MCHC 32.5 L RDW 15.5 H Plt Count 230 MPV 8.8 Neut % (Auto) 78.8 H Lymph % (Auto) 10.2 L Cassia % (Auto) 9.1 Eos % (Auto) 1.6 Baso % (Auto) 0.3 Neut # 9.0 H Lymph # 1.2 Cassia # 1.0 H Eos # 0.2 Baso # 0.0 Sodium Potassium Chloride Carbon Dioxide Anion Gap BUN Creatinine Est GFR ( Amer) Est GFR (Non-Af Amer) POC Glucose (mg/dL) 148 H Random Glucose Lactic Acid Calcium Phosphorus Magnesium Total Creatine Kinase < 20 L CK-MB (Mass) 0.35 Troponin I, Quant 0.0150 NT-Pro-B Natriuret Pep 11/24/16 11/24/16 11/24/16 06:19 06:19 06:19 WBC RBC Hgb Hct MCV MCH MCHC RDW Plt Count MPV Neut % (Auto) Lymph % (Auto) Cassia % (Auto) Eos % (Auto) Baso % (Auto) Neut # Lymph # Cassia # Eos # Baso # Sodium 128 L Potassium 4.8 Chloride 90 L Carbon Dioxide 24 Anion Gap 19 BUN 56 H Creatinine 7.2 H Est GFR ( Amer) 7 Est GFR (Non-Af Amer) 6 POC Glucose (mg/dL) Random Glucose 155 H Lactic Acid 0.9 Calcium 9.6 Phosphorus 8.3 H Magnesium 1.8 Total Creatine Kinase < 20 L CK-MB (Mass) 0.58 Troponin I, Quant 0.0140 NT-Pro-B Natriuret Pep 94748 H Assessment & Plan (1) Dyspnea Status: Acute Comment: acute shortness of breath yesterday which responded to nebulizertreatment most likely secondary to bronchospasm. Patient with end- stage renal disease on hemodialysis dyspnea secondary to fluid overload is unlikely. Continue antibiotics for intra-abdominal abscess. Pulmonary embolism unlikely as patient is saturating well on 2 L nasal cannula (2) Intra-abdominal abscess Status: Acute
--- NOTE | 2016-11-24 16:25 | CP.PCM.PN ---
Subjective - Date & Time of Evaluation Date of Evaluation: 11/24/16 Time of Evaluation: 09:00 - Subjective Subjective: 70 yo [place] female, on peritoneal dialysis, was admitted at [facility] acute rehab after a bout of peritonitis which was treated at [facility]. pt [facility] for vomiting during hemodialysis. CAT scan of the abdomen consistent with intra-abdominal abscess and being treated by infectious disease. Yesterday a rapid response was called for shortness of breath now c/o increased abd pain RLQ without fever + tenderness bit no rebound appears more uncomfortable await repeat CT- may need open drainage of abscess Objective - Vital Signs/Intake and Output Vital Signs (last 24 hours): Temp Pulse Resp BP Pulse Ox 98.0 F 70 20 145/68 95 11/24/16 15:55 11/24/16 15:55 11/24/16 15:55 11/24/16 15:55 11/24/16 15:55 Intake and Output: 11/24/16 11/24/16 06:59 18:59 Intake Total 120 220 Balance 120 220 - Medications Medications: Current Medications Acetaminophen (Tylenol 325mg Tab) 650 mg PO Q6 PRN PRN Reason: temp > 99.5 Last Admin: 11/23/16 18:44 Dose: 650 mg Albuterol/Ipratropium (Duoneb 3 Mg/0.5 Mg (3 Ml) Ud) 3 ml INH RQ4 [facility] Last Admin: 11/24/16 16:02 Dose: Not Given Amlodipine Besylate (Norvasc) 5 mg PO [facility] Last Admin: 11/23/16 22:01 Dose: 5 mg Docusate Sodium (Colace) 100 mg PO [facility] Last Admin: 11/23/16 22:00 Dose: 100 mg Epoetin Mik (Procrit) 10,000 unit IV MWF [facility] Last Admin: 11/22/16 10:34 Dose: 10,000 unit Folic Acid (Folic Acid) 1 mg PO DAILY [facility] Last Admin: 11/24/16 09:32 Dose: 1 mg Gentamicin Sulfate/Sodium Chloride (Gentamicin Iv 80 Mg Premix) 80 mg in 100 mls @ 100 mls/hr IVPB MWF [facility] Last Admin: 11/22/16 08:00 Dose: 100 mls/hr Cefepime HCl (Maxipime Iv 1 Gm Premix) 1 gm in 50 mls @ 100 mls/hr IVPB Q24H [facility] Last Admin: 11/23/16 18:46 Dose: 100 mls/hr Labetalol HCl (Normodyne) 300 mg PO Q12 [facility] Last Admin: 11/24/16 09:33 Dose: 300 mg Lactobacillus Acidophilus (Bacid Acidophilus) 1 cap PO BID [facility] Last Admin: 11/24/16 09:32 Dose: 1 cap Lactulose (Enulose) 20 gm PO HS [facility] Last Admin: 11/23/16 22:00 Dose: Not Given Losartan Potassium (Cozaar) 100 mg PO DAILY [facility] Last Admin: 11/24/16 09:32 Dose: 100 mg Nitroglycerin (Nitrostat Sl Tab) 0.4 mg SL Q15M PRN PRN Reason: chest pain Tramadol HCl (Ultram) 50 mg PO Q6 PRN PRN Reason: pain Last Admin: 11/24/16 11:18 Dose: 50 mg - Labs Labs: 11/24/16 06:19 11/24/16 06:19 PT 12.9 SECONDS (9.7-12.2) H 11/11/16 13:20 INR 1.1 11/11/16 13:20 APTT 50 SECONDS (21-34) H D 11/13/16 14:11 - Constitutional Appears: Non-toxic, Chronically Ill - Head Exam Head Exam: NORMOCEPHALIC - Eye Exam Eye Exam: PERRL. absent: Scleral icterus - ENT Exam ENT Exam: Mucous Membranes Dry - Neck Exam Neck Exam: absent: Lymphadenopathy - Respiratory Exam Respiratory Exam: Decreased Breath Sounds, Clear to Ausculation Bilateral, Rhonchi - Cardiovascular Exam Cardiovascular Exam: REGULAR RHYTHM, +S1, +S2 - GI/Abdominal Exam GI & Abdominal Exam: Distended, Guarding, Soft, Tenderness, Hypoactive Bowel Sounds - Rectal Exam Rectal Exam: Deferred - Exam Exam: NORMAL INSPECTION - Extremities Exam Extremities Exam: absent: Calf Tenderness, Pedal Edema - Back Exam Back Exam: absent: CVA tenderness (L), CVA tenderness (R) - Neurological Exam Neurological Exam: Alert, Awake, Oriented x3 - Psychiatric Exam Psychiatric exam: Normal Mood - Skin Skin Exam: Dry, Intact Assessment and Plan (1) ESRD (end stage renal disease) Status: Acute (2) Intra-abdominal abscess Status: Acute - Assessment and Plan (Free Text) Assessment: c/o increased abd pain RLQ without fever + tenderness bit no rebound appears more uncomfortable await repeat CT- may need open drainage of abscess
--- NOTE | 2016-11-24 16:35 | CT ---
PROCEDURE: CT Abdomen and Pelvis without intravenous contrast HISTORY: Pain. Known abdominal abscess. New line Relevant interventional procedure(s): CT guided drainage mid abdominal collection with recovery of 50 cc of per 11 material. Interventional procedure November 14, 2016. COMPARISON: Pre interventional CT abdomen and pelvis 11/11/2016. TECHNIQUE: Unenhanced study. Neither oral nor intravenous contrast administered. Radiation dose: Total exam DLP = 622.92 mGy-cm. This CT exam was performed using one or more of the following dose reduction techniques: Automated exposure control, adjustment of the mA and/or kV according to patient size, and/or use of iterative reconstruction technique. FINDINGS: ANTERIOR ABDOMINAL FLUID COLLECTION AT AND TO THE LEFT OF THE MIDLINE. CEPHALOCAUDAL DIMENSION 15.6 CM. ORTHOGONAL AXIAL DIMENSIONS 5.7 X 16 CM. ADJACENT COMMUNICATING FLUID COLLECTION CENTRALLY, MIDLINE IN THE PELVIS MEASURING 3.4 X 6.3 X 5.5 CM. THIS APPEARS THE SITE OF THE PREVIOUSLY EVACUATED COLLECTION. INTENSE ANTERIOR ABDOMINAL WALL INFLAMMATORY CHANGES NOTED ABOUT THE UMBILICUS AND EXTENDING INTO THE PELVIS. NO DEFINITE FISTULOUS COMMUNICATION IS IDENTIFIED. THESE REPRESENT NEW FINDINGS COMPARED TO THE PRIOR STUDY AREA THERE LIKELY ADDITIONAL SMALLER FLUID COLLECTIONS WHICH ARE IN FROM NON-OPACIFIED LOWER ABDOMINAL AND PELVIC LOOPS OF SMALL BOWEL. CUTANEOUS AND SUBCUTANEOUS EDEMATOUS CHANGES A ABDOMINAL WALL/panniculitis are also progressive. LOWER THORAX: Unremarkable. LIVER: Unremarkable. No gross lesion or ductal dilatation. GALLBLADDER AND BILE DUCTS: Cholelithiasis. Suggestion of gallbladder wall thickening as well. These findings were identified on prior CT scans. PANCREAS: Unremarkable. No gross lesion or ductal dilatation. SPLEEN: Unremarkable. ADRENALS: Unremarkable. No mass. KIDNEYS AND URETERS: Stable findings, a renal cortical atrophy bilaterally. VASCULATURE: Unremarkable. No aortic aneurysm. BOWEL: Nondiagnostic assessment of colon and small bowel given the absence oral contrast and multiple intra abdominal and pelvic fluid collections. APPENDIX: The appendix is not visualized. PERITONEUM: Inflammatory changes within the mesenteries may reflect a component of peritonitis. No visible free air identified. LYMPH NODES: Unremarkable. No enlarged lymph nodes. BLADDER: Decompressed bladder, bladder wall thickening. Similar findings identified on the prior CT 11/11/2016. REPRODUCTIVE: Unremarkable. BONES: No significant interval change compared to the prior examination(s). OTHER FINDINGS: None. IMPRESSION: Multiple new fluid collections in the abdomen and pelvis described in greater detail in the commentary. Additional fluid collections a possible abscess ease should be considered although accurate characterization in the absence of oral contrast is difficult. Follow-up CT of the abdomen pelvis with oral contrast is advised. Multiple additional benign and incidental findings again identified.
--- NOTE | 2016-11-24 17:19 | CP.PCM.PN ---
Subjective - Date & Time of Evaluation Date of Evaluation: 11/24/16 Time of Evaluation: 17:06 - Subjective Subjective: cc: new adominal pain HPI: Pt was noted to be moaning as if in pain today. Pt's mentation also off, and sometimes answers questions inappropriately. Ok'd to give tramadol 50 mg q6 prn for pain. On suspiciion of renewed occult infection, CT scan of abdomen and pelvis ordered without oral or IV contrast. New fluid collections, as well as intensely highlighting lesion on the anterior abdominal wall extending to the pelvis. Possiblity of fistula also mentioned in the tract extending into the pelvis. It had become clear that an aspiraton/drainage procedure would not be the best course, so I spoke with Surgery about a poissible exploratory laparotomy after I had spoken to the family regarding the results of the CT scan. Surgery informed me that Anesthesia would balk at doing the surgery if pt underwent hemodialysis also tomorrow. Best course would be to move her dialysis to today, and tomorrow would be free for the surgery. > Subsequently made plans with Nephro to have pt's HD done tonight to which they agreed, and had nurse endorse to nursing staff following of the events of today. Objective - Vital Signs/Intake and Output Vital Signs (last 24 hours): Temp Pulse Resp BP Pulse Ox 98.0 F 70 20 145/68 95 11/24/16 15:55 11/24/16 15:55 11/24/16 15:55 11/24/16 15:55 11/24/16 15:55 Intake and Output: 11/24/16 11/24/16 06:59 18:59 Intake Total 120 220 Balance 120 220 - Medications Medications: Current Medications Acetaminophen (Tylenol 325mg Tab) 650 mg PO Q6 PRN PRN Reason: temp > 99.5 Last Admin: 11/23/16 18:44 Dose: 650 mg Albuterol/Ipratropium (Duoneb 3 Mg/0.5 Mg (3 Ml) Ud) 3 ml INH RQ4 [facility] Last Admin: 11/24/16 16:02 Dose: Not Given Amlodipine Besylate (Norvasc) 5 mg PO [facility] Last Admin: 11/23/16 22:01 Dose: 5 mg Docusate Sodium (Colace) 100 mg PO [facility] Last Admin: 11/23/16 22:00 Dose: 100 mg Epoetin Mik (Procrit) 10,000 unit IV [facility]WF [facility] Last Admin: 11/22/16 10:34 Dose: 10,000 unit Folic Acid (Folic Acid) 1 mg PO DAILY [facility] Last Admin: 11/24/16 09:32 Dose: 1 mg Gentamicin Sulfate/Sodium Chloride (Gentamicin Iv 80 Mg Premix) 80 mg in 100 mls @ 100 mls/hr IVPB [facility]WF [facility] Last Admin: 11/22/16 08:00 Dose: 100 mls/hr Cefepime HCl (Maxipime Iv 1 Gm Premix) 1 gm in 50 mls @ 100 mls/hr IVPB Q24H [facility] Last Admin: 11/23/16 18:46 Dose: 100 mls/hr Vancomycin HCl 1 gm/ Sodium (Chloride) 250 mls @ 166.7 mls/hr IVPB ONCE STA Stop: 11/24/16 17:55 Vancomycin HCl 1,000 mg/ (Sodium Chloride) 250 mls @ 166.6 mls/hr [place] [facility] Labetalol HCl (Normodyne) 300 mg PO Q12 [facility] Last Admin: 11/24/16 09:33 Dose: 300 mg Lactobacillus Acidophilus (Bacid Acidophilus) 1 cap PO BID [facility] Last Admin: 11/24/16 09:32 Dose: 1 cap Lactulose (Enulose) 20 gm PO HS [facility] Last Admin: 11/23/16 22:00 Dose: Not Given Losartan Potassium (Cozaar) 100 mg PO DAILY [facility] Last Admin: 11/24/16 09:32 Dose: 100 mg Nitroglycerin (Nitrostat Sl Tab) 0.4 mg SL Q15M PRN PRN Reason: chest pain Tramadol HCl (Ultram) 50 mg PO Q6 PRN PRN Reason: pain Last Admin: 11/24/16 11:18 Dose: 50 mg - Labs Labs: 11/24/16 06:19 11/24/16 06:19 PT 12.9 SECONDS (9.7-12.2) H 11/11/16 13:20 INR 1.1 11/11/16 13:20 APTT 50 SECONDS (21-34) H D 11/13/16 14:11 - Constitutional Appears: Other (attempting to be light hearted, but not talking as much as yesterday. drifts in and out of sleep) - Head Exam Head Exam: ATRAUMATIC, NORMAL INSPECTION, NORMOCEPHALIC - Eye Exam Eye Exam: EOMI, Normal appearance (focus unclear, appears to be staring into space at times) Pupil Exam: NORMAL ACCOMODATION - ENT Exam ENT Exam: Mucous Membranes Moist, Normal Exam - Neck Exam Neck Exam: Normal Inspection - Respiratory Exam Respiratory Exam: Clear to Ausculation Bilateral, NORMAL BREATHING PATTERN - Cardiovascular Exam Cardiovascular Exam: Tachycardia - GI/Abdominal Exam GI & Abdominal Exam: Normal Bowel Sounds (quiescent on LLQ, active bowel sounds in ileo-colic area) - Rectal Exam Rectal Exam: Deferred - Back Exam Back Exam: NORMAL INSPECTION - Neurological Exam Neuro motor strength exam: Left Upper Extremity: 4, Right Upper Extremity: 4, Left Lower Extremity: 3, Right Lower Extremity: 3 - Psychiatric Exam Additional comments: unable to evaluate - Skin Skin Exam: Dry, Warm Assessment and Plan (1) Intra-abdominal abscess Assessment & Plan: recurred as evidenced by CDT of abdomen and pelvis today. Plan for explore lap in AM. Family consents Status: Acute (2) Anemia of chronic disease Status: Chronic (3) Gastroparesis Status: Resolved (4) ESRD (end stage renal disease) Assessment & Plan: HD tonight Status: Chronic (5) Generalized weakness Assessment & Plan: plan for possible TPN while recovering Status: Acute
--- NOTE | 2016-11-24 21:19 | CP.PCM.PN ---
<Kat Baltazar - Last Filed: 11/24/16 21:18> Subjective - Date & Time of Evaluation Date of Evaluation: 11/24/16 Time of Evaluation: 21:18 - Subjective Subjective: SURGERY PROGRESS NOTE FOR DR. CARROLL Plan for OR tomorrow for Exploratory laparotomy due to repeat CT findings of multiple new fluid collections. NPO past midnight Type and crossmatch coags Objective - Vital Signs/Intake and Output Vital Signs (last 24 hours): Temp Pulse Resp BP Pulse Ox 97.8 F 91 H 20 133/74 100 11/24/16 18:55 11/24/16 18:55 11/24/16 18:55 11/24/16 20:55 11/24/16 18:55 Intake and Output: 11/24/16 11/25/16 18:59 06:59 Intake Total 220 Balance 220 - Medications Medications: Current Medications Acetaminophen (Tylenol 325mg Tab) 650 mg PO Q6 PRN PRN Reason: temp > 99.5 Last Admin: 11/23/16 18:44 Dose: 650 mg Albuterol/Ipratropium (Duoneb 3 Mg/0.5 Mg (3 Ml) Ud) 3 ml INH RQ4 [facility] Last Admin: 11/24/16 20:25 Dose: Not Given Amlodipine Besylate (Norvasc) 5 mg PO HS [facility] Last Admin: 11/23/16 22:01 Dose: 5 mg Docusate Sodium (Colace) 100 mg PO HS [facility] Last Admin: 11/23/16 22:00 Dose: 100 mg Epoetin Mik (Procrit) 10,000 unit IV MWF [facility] Last Admin: 11/22/16 10:34 Dose: 10,000 unit Folic Acid (Folic Acid) 1 mg PO DAILY [facility] Last Admin: 11/24/16 09:32 Dose: 1 mg Gentamicin Sulfate/Sodium Chloride (Gentamicin Iv 80 Mg Premix) 80 mg in 100 mls @ 100 mls/hr IVPB MWF [facility] Last Admin: 11/22/16 08:00 Dose: 100 mls/hr Cefepime HCl (Maxipime Iv 1 Gm Premix) 1 gm in 50 mls @ 100 mls/hr IVPB Q24H [facility] Last Admin: 11/23/16 18:46 Dose: 100 mls/hr Vancomycin HCl 1,000 mg/ (Sodium Chloride) 250 mls @ 166.6 mls/hr IVPB MWF [facility] Labetalol HCl (Normodyne) 300 mg PO Q12 [facility] Last Admin: 11/24/16 09:33 Dose: 300 mg Lactobacillus Acidophilus (Bacid Acidophilus) 1 cap PO BID [facility] Last Admin: 11/24/16 09:32 Dose: 1 cap Lactulose (Enulose) 20 gm PO HS [facility] Last Admin: 11/23/16 22:00 Dose: Not Given Losartan Potassium (Cozaar) 100 mg PO DAILY [facility] Last Admin: 11/24/16 09:32 Dose: 100 mg Nitroglycerin (Nitrostat Sl Tab) 0.4 mg SL Q15M PRN PRN Reason: chest pain Tramadol HCl (Ultram) 50 mg PO Q6 PRN PRN Reason: pain Last Admin: 11/24/16 11:18 Dose: 50 mg - Labs Labs: 11/24/16 06:19 11/24/16 06:19 PT 12.9 SECONDS (9.7-12.2) H 11/11/16 13:20 INR 1.1 11/11/16 13:20 APTT 50 SECONDS (21-34) H D 11/13/16 14:11 <Ash Carroll Jr. - Last Filed: 12/04/16 15:11> Objective - Vital Signs/Intake and Output Vital Signs (last 24 hours): Temp Pulse Resp BP Pulse Ox 98.1 F 105 H 20 125/78 100 12/04/16 12:30 12/04/16 14:00 12/04/16 14:00 12/04/16 14:00 12/04/16 14:00 Intake and Output: 12/04/16 12/04/16 06:59 18:59 Intake Total 369.6 401.1 Output Total 30 0 Balance 339.6 401.1 - Medications Medications: Current Medications Acetaminophen (Tylenol 325mg Tab) 650 mg PO Q6 PRN PRN Reason: temp > 99.5 Last Admin: 11/23/16 18:44 Dose: 650 mg Albuterol Sulfate (Albuterol 0.083% Inhal Angelica (2.5 Mg/3 Ml) Ud) 2.5 mg INH RQ6 [facility] Last Admin: 12/04/16 13:44 Dose: 2.5 mg Alprazolam (Xanax) 0.25 mg PO Q8H PRN PRN Reason: Anxiety Stop: 12/05/16 08:49 Last Admin: 11/28/16 21:41 Dose: 0.25 mg Aspirin (Ecotrin) 81 mg PO DAILY [facility] Last Admin: 12/04/16 10:00 Dose: Not Given Calcium Acetate (Phoslo) 667 mg PO TIDCC [facility] Last Admin: 12/04/16 08:00 Dose: Not Given Epoetin Mik (Procrit) 10,000 unit IV [facility] Last Admin: 12/04/16 10:07 Dose: 10,000 unit Famotidine (Pepcid) 20 mg IVP Q12 [facility] Last Admin: 12/04/16 11:09 Dose: 20 mg Folic Acid (Folic Acid) 1 mg PO DAILY [facility] Last Admin: 12/04/16 10:00 Dose: Not Given Heparin Sodium (Porcine) (Heparin) 4,100 units IVP [facility] Last Admin: 12/04/16 10:19 Dose: 4,100 units Vancomycin HCl 1,000 mg/ (Sodium Chloride) 250 mls @ 166.6 mls/hr IVPB [facility] Last Admin: 12/02/16 14:22 Dose: 166.6 mls/hr Nitroglycerin/Dextrose (Nitroglycerin 50 Mg/250 Ml D5w) 50 mg in 250 mls @ 7.5 mls/hr IV .Q24H MARYLOU; 25 MCG/MIN PRN Reason: Protocol Last Titration: 12/04/16 02:00 Dose: 0 mcg/min, 0 mls/hr Heparin Sodium/Sodium Chloride (Heparin 24562 Units/250ml 1/2 Normal Saline) 25 ,000 units in 250 mls @ 7.32 mls/hr IV .Q24H PRN; Protocol; 12 UNITS/KG/HR PRN Reason: PROTOCOL Last Admin: 12/04/16 05:10 Dose: 12 units/kg/hr, 7.32 mls/hr Sodium Chloride (Sodium Chloride 0.9%) 1,000 mls @ 50 mls/hr IV .Q20H ONE Stop: 12/05/16 01:14 Last Admin: 12/04/16 06:10 Dose: 50 mls/hr Metronidazole (Flagyl) 500 mg in 100 mls @ 100 mls/hr IVPB Q8 [facility] Insulin Human Regular (Novolin R) 0 unit SC ACHS MARYLOU PRN Reason: Protocol Last Admin: 12/03/16 16:30 Dose: Not Given Lactobacillus Acidophilus (Bacid Acidophilus) 1 cap PO BID [facility] Last Admin: 12/04/16 10:00 Dose: Not Given Losartan Potassium (Cozaar) 100 mg PO DAILY [facility] Last Admin: 12/04/16 10:00 Dose: Not Given Metoprolol Tartrate (Lopressor) 5 mg IVP Q8H [facility] Last Admin: 12/04/16 11:30 Dose: Not Given Nitroglycerin (Nitrostat Sl Tab) 0.4 mg SL Q15M PRN PRN Reason: chest pain Polyethylene Glycol (Miralax) 17 gm PO Q12H [facility] Last Admin: 12/04/16 09:45 Dose: Not Given Senna/Docusate Sodium (Senokot S 50 Mg-8.6 Mg) 2 tab PO Q12H [facility] Last Admin: 12/04/16 08:00 Dose: Not Given - Labs Labs: 12/04/16 04:56 12/04/16 04:56 PT 11.1 SECONDS (9.7-12.2) 12/04/16 04:56 INR 1.0 12/04/16 04:56 APTT 153 SECONDS (21-34) H* D 12/04/16 12:54 Attending/Attestation - Attestation I have fully participated in the care of the patient.: Yes I have reviewed all pertinent clinical information, including history, physical exam and plan: Yes
[2016-11-24] MEDS: Cefepime IV 1 gm in Dextrose 1 GM/50 ML BAG IVPB SCH (22:26)
[2016-11-25] MEDS: Albuterol-Ipratrop 3 mg / 0.5 (3 ml) UD INH SCH ×6 (01:20→23:40)
[2016-11-25 06:58] LABS: POTASSIUM 4.3 mmol/L (3.6-5.2)
[2016-11-25 07:00] LABS: BILIRUBIN,TOTAL 0.7 mg/dL (0.2-1.3)
[2016-11-25 07:01] LABS: ALB/GLOB RATIO 0.5 (1.0-2.1); TOTAL PROTEIN 7.6 g/dL (6.3-8.3)
[2016-11-25 07:06] LABS: BASO # 0.1 K/uL (0.0-0.2); BASO % 0.7 % (0.0-2.0); EOS # 0.2 K/uL (0.0-0.7); EOS % 2.2 % (0.0-4.0); LYMPH # 0.8 K/uL (1.0-4.3); LYMPH % 7.9 % (20.0-40.0); MEAN CELL VOLUME 87.8 fL (81.0-99.0); MEAN CORPUSCULAR HEMOGLOBIN 28.1 pg (27.0-31.0); MEAN PLATELET VOLUME 8.8 fL (7.2-11.7); MONO # 0.9 K/uL (0.0-0.8); MONO % 9.1 % (0.0-10.0); PLATELET COUNT 203 K/uL (130-400); RED CELL DISTRIBUTION WIDTH 15.4 % (11.5-14.5); WHITE BLOOD COUNT 9.8 K/uL (4.8-10.8)
[2016-11-25 07:14] LABS: INR 1.1
[2016-11-25 09:13] LABS: EOSINOPHIL 3 % (0-4); NEUTROPHIL 87 % (50-75); TOTAL CELLS COUNTED 100
[2016-11-25] MEDS: Epoetin Alfa 10,000 unit/ml Dialysis IV SCH (09:14)
[2016-11-25] MEDS: Gentamicin 80 mg in 0.9% NS 80 MG/100 ML BAG IVPB SCH (10:00)
[2016-11-25] MEDS: Lactobacillus Acidophilus 500 MU Cap PO SCH ×2 (10:56→19:25)
[2016-11-25] MEDS: Labetalol Hydrochloride 300 mg Tab PO SCH (10:56)
--- NOTE | 2016-11-25 11:58 | CP.PCM.PN ---
Subjective - Date & Time of Evaluation Date of Evaluation: 11/25/16 Time of Evaluation: 11:55 - Subjective Subjective: Patient seen and examined. Discussed with PMD 11/24- dialysis done last PM in preparation for exploratory lap today. UF-2200ml last PM. More confused- not verbalizing now Afebrile; BP stable. Maintained on multiple IV ABs CT scan with possible new abdominal abscesses Going to OR soon Objective - Vital Signs/Intake and Output Vital Signs (last 24 hours): Temp Pulse Resp BP Pulse Ox 98.2 F 97 H 20 149/81 100 11/25/16 11:50 11/25/16 11:50 11/25/16 11:50 11/25/16 11:50 11/25/16 11:50 Intake and Output: 11/25/16 11/25/16 06:59 18:59 Intake Total 0 Balance 0 - Medications Medications: Current Medications Acetaminophen (Tylenol 325mg Tab) 650 mg PO Q6 PRN PRN Reason: temp > 99.5 Last Admin: 11/23/16 18:44 Dose: 650 mg Albuterol/Ipratropium (Duoneb 3 Mg/0.5 Mg (3 Ml) Ud) 3 ml INH RQ4 [facility] Last Admin: 11/25/16 07:24 Dose: 3 ml Amlodipine Besylate (Norvasc) 5 mg PO HS [facility] Last Admin: 11/24/16 22:36 Dose: 5 mg Docusate Sodium (Colace) 100 mg PO HS [facility] Last Admin: 11/24/16 22:37 Dose: 100 mg Epoetin Mik (Procrit) 10,[facility] Last Admin: 11/25/16 09:14 Dose: Not Given Folic Acid (Folic Acid) 1 mg PO DAILY [facility] Last Admin: 11/25/16 10:55 Dose: 1 mg Gentamicin Sulfate/Sodium Chloride (Gentamicin Iv 80 Mg Premix) 80 mg in 100 mls @ 100 mls/hr IVPB MWF [facility] Last Admin: 11/25/16 10:00 Dose: 100 mls/hr Cefepime HCl (Maxipime Iv 1 Gm Premix) 1 gm in 50 mls @ 100 mls/hr IVPB Q24H [facility] Last Admin: 11/24/16 22:26 Dose: 100 mls/hr Vancomycin HCl 1,000 mg/ (Sodium Chloride) 250 mls @ 166.6 mls/hr IVPB MWF [facility] Last Admin: 11/25/16 11:00 Dose: 166.6 mls/hr Labetalol HCl (Normodyne) 300 mg PO Q12 [facility] Last Admin: 11/25/16 10:56 Dose: 300 mg Lactobacillus Acidophilus (Bacid Acidophilus) 1 cap PO BID [facility] Last Admin: 11/25/16 10:56 Dose: 1 cap Lactulose (Enulose) 20 gm PO HS [facility] Last Admin: 11/24/16 22:34 Dose: Not Given Losartan Potassium (Cozaar) 100 mg PO DAILY [facility] Last Admin: 11/25/16 10:55 Dose: 100 mg Nitroglycerin (Nitrostat Sl Tab) 0.4 mg SL Q15M PRN PRN Reason: chest pain Tramadol HCl (Ultram) 50 mg PO Q6 PRN PRN Reason: pain Last Admin: 11/24/16 11:18 Dose: 50 mg - Labs Labs: 11/25/16 06:20 11/25/16 06:20 PT 12.3 SECONDS (9.7-12.2) H 11/25/16 06:20 INR 1.1 11/25/16 06:20 APTT 42 SECONDS (21-34) H 11/25/16 06:20 - Constitutional Appears: In Acute Distress, Confused, Chronically Ill - Head Exam Head Exam: ATRAUMATIC, NORMAL INSPECTION - Eye Exam Eye Exam: EOMI, Normal appearance - Neck Exam Neck Exam: Normal Inspection. absent: Tenderness - Respiratory Exam Respiratory Exam: Clear to Ausculation Bilateral, NORMAL BREATHING PATTERN - Cardiovascular Exam Cardiovascular Exam: REGULAR RHYTHM, +S1 - GI/Abdominal Exam GI & Abdominal Exam: Distended, Tenderness, Hypoactive Bowel Sounds - Extremities Exam Extremities Exam: Normal Inspection. absent: Tenderness - Neurological Exam Neurological Exam: Awake, CN II-XII Intact - Skin Skin Exam: Dry, Warm Assessment and Plan (1) Type 2 diabetes mellitus with diabetic nephropathy Status: Acute (2) ESRD (end stage renal disease) Status: Chronic (3) Intra-abdominal abscess Status: Acute - Assessment and Plan (Free Text) Plan: IV ABs Exploratory lap now Repeat dialysis in AM
--- NOTE | 2016-11-25 12:13 | CP.PCM.PN ---
Subjective - Date & Time of Evaluation Date of Evaluation: 11/25/16 Time of Evaluation: 08:00 - Subjective Subjective: events noted weak/ lethargic for OR dialysis done last PM in preparation for exploratory lap today. Objective - Vital Signs/Intake and Output Vital Signs (last 24 hours): Temp Pulse Resp BP Pulse Ox 98.2 F 97 H 20 149/81 100 11/25/16 11:50 11/25/16 11:50 11/25/16 11:50 11/25/16 11:50 11/25/16 11:50 Intake and Output: 11/25/16 11/25/16 06:59 18:59 Intake Total 0 Balance 0 - Medications Medications: Current Medications Acetaminophen (Tylenol 325mg Tab) 650 mg PO Q6 PRN PRN Reason: temp > 99.5 Last Admin: 11/23/16 18:44 Dose: 650 mg Albuterol/Ipratropium (Duoneb 3 Mg/0.5 Mg (3 Ml) Ud) 3 ml INH RQ4 [facility] Last Admin: 11/25/16 12:06 Dose: Not Given Amlodipine Besylate (Norvasc) 5 mg PO [facility] Last Admin: 11/24/16 22:36 Dose: 5 mg Docusate Sodium (Colace) 100 mg PO [facility] Last Admin: 11/24/16 22:37 Dose: 100 mg Epoetin Mik (Procrit) 10,000 unit IV [facility] Last Admin: 11/25/16 09:14 Dose: Not Given Folic Acid (Folic Acid) 1 mg PO DAILY [facility] Last Admin: 11/25/16 10:55 Dose: 1 mg Gentamicin Sulfate/Sodium Chloride (Gentamicin Iv 80 Mg Premix) 80 mg in 100 mls @ 100 mls/hr IVPB [facility] Last Admin: 11/25/16 10:00 Dose: 100 mls/hr Cefepime HCl (Maxipime Iv 1 Gm Premix) 1 gm in 50 mls @ 100 mls/hr IVPB Q24H [facility] Last Admin: 11/24/16 22:26 Dose: 100 mls/hr Vancomycin HCl 1,000 mg/ (Sodium Chloride) 250 mls @ 166.6 mls/hr IVPB [facility] Last Admin: 11/25/16 11:00 Dose: 166.6 mls/hr Labetalol HCl (Normodyne) 300 mg PO Q12 [facility] Last Admin: 11/25/16 10:56 Dose: 300 mg Lactobacillus Acidophilus (Bacid Acidophilus) 1 cap PO BID [facility] Last Admin: 11/25/16 10:56 Dose: 1 cap Lactulose (Enulose) 20 gm PO HS [facility] Last Admin: 11/24/16 22:34 Dose: Not Given Losartan Potassium (Cozaar) 100 mg PO DAILY [facility] Last Admin: 11/25/16 10:55 Dose: 100 mg Nitroglycerin (Nitrostat Sl Tab) 0.4 mg SL Q15M PRN PRN Reason: chest pain Tramadol HCl (Ultram) 50 mg PO Q6 PRN PRN Reason: pain Last Admin: 11/24/16 11:18 Dose: 50 mg - Labs Labs: 11/25/16 06:20 11/25/16 06:20 PT 12.3 SECONDS (9.7-12.2) H 11/25/16 06:20 INR 1.1 11/25/16 06:20 APTT 42 SECONDS (21-34) H 11/25/16 06:20 - Constitutional Appears: Toxic - Head Exam Head Exam: NORMOCEPHALIC - Eye Exam Eye Exam: absent: Scleral icterus - ENT Exam ENT Exam: Mucous Membranes Dry - Neck Exam Neck Exam: absent: Lymphadenopathy - Respiratory Exam Respiratory Exam: Decreased Breath Sounds, Rhonchi - Cardiovascular Exam Cardiovascular Exam: REGULAR RHYTHM, +S1, +S2 - GI/Abdominal Exam GI & Abdominal Exam: Distended, Tenderness Assessment and Plan (1) ESRD (end stage renal disease) Status: Chronic (2) Intra-abdominal abscess Status: Acute
[2016-11-25] MEDS ORDERED: Sodium Chloride 0.9% 500 ML IV ONE ×2 (12:20→15:48)
[2016-11-25] MEDS ORDERED: Lidocaine Hydrochloride 5 ML INJ ONE (12:28)
[2016-11-25] MEDS ORDERED: Succinylcholine Chloride 20 mg/ml Syr (5 ml) IV ONE (12:28)
[2016-11-25] MEDS ORDERED: Propofol 10 mg/ml Inj (20 ML) ONE (12:28)
[2016-11-25] MEDS ORDERED: Rocuronium 10 mg/ml (5 ml) ONE (12:28)
[2016-11-25] MEDS ORDERED: HYDROmorphone 0.5 mg/0.5 ml ISec IVP PRN (13:08)
[2016-11-25] MEDS ORDERED: Neostigmine Methylsulfate 3mg/3ml Syringe IV ONE (13:13)
--- NOTE | 2016-11-25 13:42 | OP ---
PROCEDURE DATE: 11/25/2016 PREOPERATIVE DIAGNOSIS: Intra-abdominal abscess. POSTOPERATIVE DIAGNOSIS: Intra-abdominal abscess. PROCEDURE CARRIED OUT: Exploratory laparotomy and drainage of intra-abdominal abscess. SURGEON: Dr. Garzon [employer]ER: Resident, Dr. Guevara ANESTHESIOLOGIST: Dr. Valenzuela INDICATIONS: The patient is a 71-year-old [place] woman on dialysis who previously had been on peritoneal dialysis. At another hospital a number of weeks ago, she had an intra-abdominal infection. Had removal of the catheter and drainage of the abscess. Subsequently, she was admitted here, had drainage of another abscess percutaneously, but this has recurred, has become even larger and because of its accessibility in the midline, felt that open surgical drainage should be carried out. OPERATIVE FINDINGS: A complete abdominal exploration was not carried out as the patient had extensive intra-abdominal adhesions; in essence, a frozen abdomen and because of this, we simply re-drained the large abscesses. PROCEDURE: The patient was given general anesthesia, intravenous antibiotics. A standard midline preparation was carried out and the midline incision was opened. The previous suture was removed. The pus was encountered immediately and this was cultured and sent for evaluation. Approximately 750 mL of pus was found. It was nonfoul smelling. After this had been thoroughly irrigated out and drained and removed, we then placed a suction drain and then partially closed the abdominal midline incision and partially closed the skin. The wound was not packed open, but simply left open to drain apart from this. The drain which had been placed under the fascia was then attached to suction. Blood loss of the procedure was less than 50 mL and as I said, 750 mL of pus was drained. There were no other intraoperative complications. Ash Garzon Jr., MD cc: [phone] TT: 11/25/2016 13:41:07 sn MTDD
[2016-11-25] MEDS ORDERED: Sodium Chloride 0.9% 1,000 ML IV ONE ×2 (14:45→16:00)
[2016-11-25] MEDS ORDERED: Naloxone 0.4 mg/ml Inj (Adult) ONE (14:52)
[2016-11-25] MEDS ORDERED: ePHEDrine 50 mg/ml Inj ONE (15:04)
--- NOTE | 2016-11-25 15:20 | CP.PCM.PN ---
Subjective - Date & Time of Evaluation Date of Evaluation: 11/25/16 Time of Evaluation: 08:00 - Subjective Subjective: patient seen and examined in the morning sitting comfortably in no acute distress Patient is scheduled for drainage of abscess Denies cough, denies shortness of breath. Objective - Vital Signs/Intake and Output Vital Signs (last 24 hours): Temp Pulse Resp BP Pulse Ox 98.2 F 90 20 149/81 98 11/25/16 11:50 11/25/16 12:28 11/25/16 11:50 11/25/16 11:50 11/25/16 12:28 Intake and Output: 11/25/16 11/25/16 06:59 18:59 Intake Total 0 Balance 0 - Medications Medications: Current Medications Acetaminophen (Tylenol 325mg Tab) 650 mg PO Q6 PRN PRN Reason: temp > 99.5 Last Admin: 11/23/16 18:44 Dose: 650 mg Albuterol/Ipratropium (Duoneb 3 Mg/0.5 Mg (3 Ml) Ud) 3 ml INH RQ4 [facility] Last Admin: 11/25/16 12:06 Dose: Not Given Epoetin Mik (Procrit) 10,000 unit [place] [facility] Last Admin: 11/25/16 09:14 Dose: Not Given Folic Acid (Folic Acid) 1 mg PO DAILY [facility] Last Admin: 11/25/16 10:55 Dose: 1 mg Gentamicin Sulfate/Sodium Chloride (Gentamicin Iv 80 Mg Premix) 80 mg in 100 mls @ 100 mls/hr IVPB [facility] Last Admin: 11/25/16 10:00 Dose: 100 mls/hr Cefepime HCl (Maxipime Iv 1 Gm Premix) 1 gm in 50 mls @ 100 mls/hr IVPB Q24H [facility] Last Admin: 11/24/16 22:26 Dose: 100 mls/hr Vancomycin HCl 1,000 mg/ (Sodium Chloride) 250 mls @ 166.6 mls/hr IVPB [facility] Last Admin: 11/25/16 11:00 Dose: 166.6 mls/hr Dopamine HCl/Dextrose (Dopamine 400mg/250ml D5w) 400 mg in 250 mls @ 4.81 mls/ hr IV .Q24H PRN; Protocol; 2 MCG/KG/MIN PRN Reason: TITRATE PER MD ORDER Lactobacillus Acidophilus (Bacid Acidophilus) 1 cap PO BID [facility] Last Admin: 11/25/16 10:56 Dose: 1 cap Losartan Potassium (Cozaar) 100 mg PO DAILY [facility] Last Admin: 11/25/16 10:55 Dose: 100 mg Nitroglycerin (Nitrostat Sl Tab) 0.4 mg SL Q15M PRN PRN Reason: chest pain - Labs Labs: 11/25/16 06:20 11/25/16 06:20 PT 12.3 SECONDS (9.7-12.2) H 11/25/16 06:20 INR 1.1 11/25/16 06:20 APTT 42 SECONDS (21-34) H 11/25/16 06:20 - Head Exam Head Exam: ATRAUMATIC, NORMOCEPHALIC - Eye Exam Eye Exam: Normal appearance - ENT Exam ENT Exam: Mucous Membranes Moist - Neck Exam Neck Exam: Normal Inspection - Respiratory Exam Respiratory Exam: Decreased Breath Sounds - Cardiovascular Exam Cardiovascular Exam: REGULAR RHYTHM - GI/Abdominal Exam GI & Abdominal Exam: Soft, Normal Bowel Sounds - Extremities Exam Extremities Exam: Normal Inspection - Neurological Exam Neurological Exam: Awake Assessment and Plan (1) Dyspnea Assessment & Plan: no further episode off bronchospasm or shortness of breath Continue nebulizer treatment Scheduled for surgery for abdominal abscess Status: Acute (2) Intra-abdominal abscess Status: Acute
--- NOTE | 2016-11-25 15:20 | PCM.SURG1 ---
Surgeon's Initial Post Op Note - Surgeon's Notes Surgeon: Dr. Garzon Roustabout: Dr. Guevara Type of Anesthesia: General Endo Pre-Operative Diagnosis: intra-abdominal abscess Operative Findings: abscess Post-Operative Diagnosis: same Operation Performed: exploratory laparotomy w/ drainage of intra-abdominal abscess Specimen/Specimens Removed: abscess fluid Estimated Blood Loss: EBL {In ML}: 10 Blood Products Given: N/A Drains Used: [place] Post-Op Condition: Good Date of Surgery/Procedure: 11/25/16 Time of Surgery/Procedure: 15:20
[2016-11-25 15:29] LABS: ABG ALLEN TEST POS; DRAW SITE LRA
[2016-11-25] MEDS: DOPamine 400mg/250ml D5W 400 MG/250 ML BAG IV PRN ×2 (15:39→17:00)
--- NOTE | 2016-11-25 16:11 | CP.PCM.CON ---
History of Present Illness - History of Present Illness History of Present Illness: ICU Consult note - PGY-1 Reason for consult: respiratory failure s/p surgical procedure This is a 70 yo [place] female with PMH of HTN and ESRD on peritoneal dialysis that was admitted on 11/11/16 for nausea/vomiting secondary to an intra- abdominal abscess seen on CT scan of the abdomen. Pt was recently admitted to [facility] after being treated for peritonitis [place] [facility] where she underwent an ex-lap for evacuation of abscess. Pt underwent another exploratory laparotomy w/ drainage of intra-abdominal abscess today. Intra-operatively, ~ 700 cc of abscess fluid removed. Per surgery, pt was lethargic prior to procedure. Post-operatively, pt was extubated and was breathing spontaneously, but found to be hypertensive thought to be secondary to pain. Pt was given Dilaudid but then had a drop in BP and became hypotensive and tachypneic and in obvious respiratory distress. She was given fluid boluses which she did not respond to and a CXR was ordered to rule out fluid overload. CXR clear but pt continued to decompensate. An ABG revealed significant acidemia with a pH of 6.8 and pt was intubated due to respiratory failure. Pt was also started on Dopamine drip for BP support. Review of Systems - Review of Systems Systems not reviewed;Unavailable: Acuity of Condition, Intubated Past Patient History - Infectious Disease Hx of Infectious Diseases: None - Past Medical History & Family History Past Medical History?: Yes - Past Social History Smoking Status: Never Smoked - CARDIAC Hx Cardiac Disorders: Yes Hx Hypertension: Yes - PULMONARY Hx Respiratory Disorders: No - NEUROLOGICAL Hx Neurological Disorder: No - HEENT Hx HEENT Problems: No - RENAL Hx Renal Failure: Yes (ESRD) - ENDOCRINE/METABOLIC Hx Endocrine Disorders: No - HEMATOLOGICAL/ONCOLOGICAL Hx Blood Disorders: No - INTEGUMENTARY Hx Dermatological Problems: No - MUSCULOSKELETAL/RHEUMATOLOGICAL Hx Musculoskeletal Disorders: No Hx Falls: No - GASTROINTESTINAL Hx Gastrointestinal Disorders: No - GENITOURINARY/GYNECOLOGICAL Hx Genitourinary Disorders: No - PSYCHIATRIC Hx Substance Use: No - SURGICAL HISTORY Hx Surgeries: Yes Hx Vascular Surgery: Yes Hx Vascular Access Device: Yes - ANESTHESIA Hx Anesthesia: Yes Hx Anesthesia Reactions: No Meds Home Medications: Home Medication List Medication Instructions Recorded Confirmed Type Acetaminophen [Tylenol 325mg tab] 650 mg PO Q6 PRN tab 11/20/16 Rx Benztropine [Cogentin] 1 mg PO HS tab 11/20/16 Rx Epoetin Mik [Procrit] 10,000 unit IV MWF ml 11/20/16 Rx Folic Acid 1 mg PO DAILY tab 11/20/16 Rx Heparin 4,100 units IVP MWF vial 11/20/16 Rx Lactobacillus Acidophilus [Bacid 1 cap PO BID cap 11/20/16 Rx Acidophilus] Losartan [Cozaar] 50 mg PO DAILY tab 11/20/16 Rx Meropenem [Merrem IV] 500 mg IVPB Q12H vial 11/20/16 Rx Metoclopramide [Reglan] 10 mg PO ACLD tab 11/20/16 Rx Allergies/Adverse Reactions: Allergies Allergy/AdvReac Type Severity Reaction Status Date / Time No Known Allergies Allergy Verified 11/11/16 15:52 - Medications Medications: Current Medications Acetaminophen (Tylenol 325mg Tab) 650 mg PO Q6 PRN PRN Reason: temp > 99.5 Last Admin: 11/23/16 18:44 Dose: 650 mg Albuterol/Ipratropium (Duoneb 3 Mg/0.5 Mg (3 Ml) Ud) 3 ml INH RQ4 [facility]CLUDES [facility] Last Admin: 11/25/16 12:06 Dose: Not Given Epoetin Mik (Procrit) 10,000 unit IV [facility] [place] Last Admin: 11/25/16 09:14 Dose: Not Given Folic Acid (Folic Acid) 1 mg PO DAILY COUNT INCLUDES [facility] Last Admin: 11/25/16 10:55 Dose: 1 mg Gentamicin Sulfate/Sodium Chloride (Gentamicin Iv 80 Mg Premix) 80 mg in 100 mls @ 100 mls/hr IVPB [facility] [place] Last Admin: 11/25/16 10:00 Dose: 100 mls/hr Cefepime HCl (Maxipime Iv 1 Gm Premix) 1 gm in 50 mls @ 100 mls/hr IVPB Q24H [facility] Last Admin: 11/24/16 22:26 Dose: 100 mls/hr Vancomycin HCl 1,000 mg/ (Sodium Chloride) 250 mls @ 166.6 mls/hr IVPB [facility] [place] Last Admin: 11/25/16 11:00 Dose: 166.6 mls/hr Dopamine HCl/Dextrose (Dopamine 400mg/250ml D5w) 400 mg in 250 mls @ 4.81 mls/ hr IV .Q24H PRN; Protocol; 2 MCG/KG/MIN PRN Reason: TITRATE PER MD ORDER Sodium Chloride (Sodium Chloride 0.9%) 500 mls @ 1,000 mls/hr IV .Q30M ONE Stop: 11/25/16 16:17 Lactobacillus Acidophilus (Bacid Acidophilus) 1 cap PO BID COUNT INCLUDES [facility] Last Admin: 11/25/16 10:56 Dose: 1 cap Losartan Potassium (Cozaar) 100 mg PO DAILY COUNT [facility]CLUD[facility] Last Admin: 11/25/16 10:55 Dose: 100 mg Nitroglycerin (Nitrostat Sl Tab) 0.4 mg SL Q15M PRN PRN Reason: chest pain Physical Exam - Constitutional Appears: Other (Intubated) - Head Exam Head Exam: ATRAUMATIC, NORMOCEPHALIC - Eye Exam Eye Exam: Normal appearance, PERRL - ENT Exam ENT Exam: Mucous Membranes Moist - Respiratory Exam Respiratory Exam: Clear to Auscultation Bilateral. absent: Rhonchi, Wheezes - Cardiovascular Exam Cardiovascular Exam: +S1, +S2 - GI/Abdominal Exam GI & Abdominal Exam: Soft Additional comments: Bandages over incision site, clean/dry/intact - Extremities Exam Extremities exam: Positive for: normal capillary refill, pedal pulses present - Neurological Exam Additional comments: intubated - Skin Skin Exam: Dry, Warm Results - Vital Signs Recent Vital Signs: Last Vital Signs Temp 98.2 F 11/25/16 11:50 Pulse 90 11/25/16 12:28 Resp 20 11/25/16 11:50 BP 149/81 11/25/16 11:50 Pulse Ox 98 11/25/16 12:28 - Labs Result Diagrams: 11/25/16 06:20 11/25/16 06:20 Labs: Laboratory Results - last 24 hr 11/24/16 11/24/16 11/25/16 17:00 22:58 06:20 WBC 9.8 RBC 3.30 L Hgb 9.3 L Hct 29.0 L MCV 87.8 MCH 28.1 MCHC 32.0 L RDW 15.4 H Plt Count 203 MPV 8.8 Neut % (Auto) 80.1 H Lymph % (Auto) 7.9 L [place] % (Auto) 9.1 Eos % (Auto) 2.2 Baso % (Auto) 0.7 Neut # 7.8 H Lymph # 0.8 L [place] # 0.9 H Eos # 0.2 Baso # 0.1 Neutrophils % (Manual) 87 H Lymphocytes % (Manual) 8 L Monocytes % (Manual) 2 Eosinophils % (Manual) 3 Platelet Estimate Normal Hypochromasia (manual) Slight Anisocytosis (manual) Slight PT INR APTT Puncture Site pCO2 pO2 ABG pH ABG O2 Saturation Partha Test ABG Potassium Glucose Lactate Liter Flow Crit Value Called To Crit Value Called By Crit Value Read Back Blood Gas Notified Time Sodium Potassium Chloride Carbon Dioxide Anion Gap BUN Creatinine Est GFR ( Amer) Est GFR (Non-Af Amer) POC Glucose (mg/dL) 124 H Random Glucose Calcium Total Bilirubin AST ALT Alkaline Phosphatase Total Protein Albumin Globulin Albumin/Globulin Ratio Arterial Blood Potassium Blood Type A POSITIVE Antibody Screen Negative 11/25/16 11/25/16 11/25/16 06:20 06:20 06:20 WBC RBC Hgb Hct MCV MCH MCHC RDW Plt Count MPV Neut % (Auto) Lymph % (Auto) [place] % (Auto) Eos % (Auto) Baso % (Auto) Neut # Lymph # [place] # Eos # Baso # Neutrophils % (Manual) Lymphocytes % (Manual) Monocytes % (Manual) Eosinophils % (Manual) Platelet Estimate Hypochromasia (manual) Anisocytosis (manual) PT 12.3 H INR 1.1 APTT 42 H Puncture Site pCO2 pO2 ABG pH ABG O2 Saturation Partha Test ABG Potassium Glucose Lactate Liter Flow Crit Value Called To Crit Value Called By Crit Value Read Back Blood Gas Notified Time Sodium 133 Potassium 4.3 Chloride 95 L Carbon Dioxide 28 Anion Gap 15 BUN 32 H Creatinine 4.7 H Est GFR ( Amer) 11 Est GFR (Non-Af Amer) 9 POC Glucose (mg/dL) 135 H Random Glucose 137 H Calcium 9.0 Total Bilirubin 0.7 AST 44 H ALT 32 Alkaline Phosphatase 157 H Total Protein 7.6 Albumin 2.6 L Globulin 5.0 H Albumin/Globulin Ratio 0.5 L Arterial Blood Potassium Blood Type Antibody Screen 11/25/16 11/25/16 11/25/16 11:31 15:00 15:20 WBC RBC Hgb Hct MCV MCH MCHC RDW Plt Count MPV Neut % (Auto) Lymph % (Auto) [place] % (Auto) Eos % (Auto) Baso % (Auto) Neut # Lymph # [place] # Eos # Baso # Neutrophils % (Manual) Lymphocytes % (Manual) Monocytes % (Manual) Eosinophils % (Manual) Platelet Estimate Hypochromasia (manual) Anisocytosis (manual) PT INR APTT Puncture Site Lra pCO2 > 150 H* pO2 104 H ABG pH 6.87 L* ABG O2 Saturation 94.6 L Partha Test Pos ABG Potassium 5.7 H Glucose 125 H Lactate 1.3 Liter Flow 6.0 Crit Value Called To Dr anne anton Crit Value Called By Aníbal gimenez Crit Value Read Back Y Blood Gas Notified Time 1530 Sodium 139.0 Potassium Chloride 108.0 H Carbon Dioxide Anion Gap BUN Creatinine Est GFR ( Amer) Est GFR (Non-Af Amer) POC Glucose (mg/dL) 150 H 135 H Random Glucose Calcium Total Bilirubin AST ALT Alkaline Phosphatase Total Protein Albumin Globulin Albumin/Globulin Ratio Arterial Blood Potassium 5.7 H Blood Type Antibody Screen Assessment & Plan - Assessment and Plan (Free Text) Assessment: This is a 71 yo [place] F with PMH of ESRD and HTN with hypercapneic respiratory failure s/p exploratory laparotomy w/ drainage of intra-abdominal abscess, secondary to over-sedation vs sepsis. Pt is intubated and on pressor support. Plan: Neuro: Intubated, continue to monitor mental status Pulm: Hypercapneic respiratory failure. Intubated on ventilatory support. CXR confirms adequate tube placement. WIll repeat ABG CV: Hypotensive. On Dopamine drip at 6 mcg, titrate down as tolerated. Continue to monitor GI: Nothing by mouth, no acute issues Renal: Acidemic at 6.8 secondary to hypercapneic respiratory failure. ESRD on HD. Nephro following, dialysis tomorrow in the AM. Heme: Hgb stable s/p transfusions. Continue to monitor and transfuse as necessary. ID: ID following. Continue IV abx Endo: No acute issues DVT proph - held for procedure Anaya for strict I/O's during acute illness Code status - full code
--- NOTE | 2016-11-25 16:15 | RAD ---
HISTORY: atelectasis COMPARISON: 11/23/2016 FINDINGS: LUNGS: Lines and to in stable position. Mild venous congestion. Small left pleural effusion with left basilar consolidative changes. Right basilar atelectasis. Biapical pleural thickening with upper lobe granulomatous changes. PLEURA: As above. CARDIOVASCULAR: Cardiomegaly. Calcification at the aortic knob OSSEOUS STRUCTURES: Degenerative changes in the spine and shoulders. Probable small loose osteochondral bodies at the left shoulder. VISUALIZED UPPER ABDOMEN: Normal. OTHER FINDINGS: None. IMPRESSION: Lines and tubes in stable position. Mild venous congestion. Small left pleural effusion with left basilar consolidative changes. Right basilar atelectasis. Biapical pleural thickening with upper lobe granulomatous changes.
[2016-11-25 16:38] LABS: ABG ALLEN TEST POS; ABG MECHANICAL RATE 16; ATERIAL BLOOD GAS PEEP 5; DRAW SITE RRA
[2016-11-25 16:59] LABS: BASO % 0.1 % (0.0-2.0); EOS # 0.1 K/uL (0.0-0.7); EOS % 0.6 % (0.0-4.0); HEMATOCRIT 30.4 % (34.0-47.0); LYMPH # 0.4 K/uL (1.0-4.3); LYMPH % 2.6 % (20.0-40.0); MEAN CELL VOLUME 89.3 fL (81.0-99.0); MEAN CORPUSCULAR HGB CONC 31.3 g/dL (33.0-37.0); MEAN PLATELET VOLUME 8.9 fL (7.2-11.7); MONO # 0.2 K/uL (0.0-0.8); MONO % 1.5 % (0.0-10.0); PLATELET COUNT 221 K/uL (130-400); RED CELL DISTRIBUTION WIDTH 15.3 % (11.5-14.5); WHITE BLOOD COUNT 16.4 K/uL (4.8-10.8)
[2016-11-25] MEDS: Sodium Chloride 0.9% 1,000 ML IV SCH (17:00)
[2016-11-25 17:14] LABS: CALCIUM 8.5 mg/dl (8.6-10.4)
[2016-11-25 17:18] LABS: POTASSIUM 6.5 mmol/L (3.6-5.2)
--- NOTE | 2016-11-25 17:22 | RAD ---
PROCEDURE: CHEST RADIOGRAPH, 1 VIEW HISTORY: s/p INTUBATION COMPARISON: 11/26/2015 FINDINGS: LUNGS: Clear. PLEURA: No pneumothorax or pleural fluid seen. CARDIOVASCULAR: Normal. OSSEOUS STRUCTURES: No significant abnormalities. VISUALIZED UPPER ABDOMEN: Normal. OTHER FINDINGS: ETT at the [place]. Right Port-A-Cath in place. IMPRESSION: No active disease.
[2016-11-25] MEDS ORDERED: Sod Polystyrene Sulf 15 gm/60 ml Oral Susp PO ONE (17:34)
--- NOTE | 2016-11-25 17:39 | RAD ---
HISTORY: ET tube placement COMPARISON: Chest x-ray performed 11/25/16 TECHNIQUE: Chest, one view. FINDINGS: Distal tip of the endotracheal tube terminates approximately 2.4 cm above the level the [place]. Right-sided dialysis catheter tip terminating at approximately the cavoatrial junction. Distal tip of left-sided PICC terminates in the expected location of the SVC, obscured by a superimposed dialysis catheter. LUNGS: No focal consolidation. Please note that chest x-ray has limited sensitivity for the detection of pulmonary masses. PLEURA: No significant pleural effusion identified. No definite pneumothorax . CARDIOVASCULAR: Heart size appears top normal. Atherosclerotic calcifications of the aorta. OSSEOUS STRUCTURES: Degenerative changes. VISUALIZED UPPER ABDOMEN: Unremarkable. OTHER FINDINGS: None. IMPRESSION: Distal tip of the endotracheal tube terminates approximately 2.4 cm above the level the mar[place]. Right-sided dialysis catheter tip terminating at approximately the cavoatrial junction. Distal tip of left-sided PICC terminates in the expected location of the SVC, obscured by a superimposed dialysis catheter.
[2016-11-25 18:20] LABS: VENOUS BLOOD GAS BASE EXCESS -1.9 mmol/L (0.0-2.0); VENOUS BLOOD GAS PCO2 46 mmHg (40-60); VENOUS BLOOD PH 7.33 (7.32-7.43)
--- NOTE | 2016-11-25 18:49 | CP.PCM.PN ---
Subjective - Date & Time of Evaluation Date of Evaluation: 11/25/16 Time of Evaluation: 18:46 - Subjective Subjective: ICU Note: Pt underwent exploratory laparotomy this AM for multiple fluid collections found on CT yesterday. Surgery evacuated approx 700 ml of purulent material. Per communication with Surgery, they were unable to go down to the pelvis bec of extensive adhesions from multiple surgeries as well as peritonitis in the recent past. Discussed with family ( and son) implications of these findings and possible need for adhesiolysis should intestinal obstruction occur in the future. Otherwise pt appears to be awakening and emergency hemodialysis starting when pt was seen at the ICU. Objective - Vital Signs/Intake and Output Vital Signs (last 24 hours): Temp Pulse Resp BP Pulse Ox 98 F 101 H 16 135/87 100 11/25/16 17:00 11/25/16 17:00 11/25/16 17:00 11/25/16 17:00 11/25/16 17:00 Intake and Output: 11/25/16 11/25/16 06:59 18:59 Intake Total 0 Balance 0 - Medications Medications: Current Medications Acetaminophen (Tylenol 325mg Tab) 650 mg PO Q6 PRN PRN Reason: temp > 99.5 Last Admin: 11/23/16 18:44 Dose: 650 mg Albuterol/Ipratropium (Duoneb 3 Mg/0.5 Mg (3 Ml) Ud) 3 ml INH RQ4 [facility] Last Admin: 11/25/16 12:06 Dose: Not Given Epoetin Mik (Procrit) 10,000 unit IV [facility] [place] Last Admin: 11/25/16 09:14 Dose: Not Given Folic Acid (Folic Acid) 1 mg PO DAILY [facility] Last Admin: 11/25/16 10:55 Dose: 1 mg Gentamicin Sulfate/Sodium Chloride (Gentamicin Iv 80 Mg Premix) 80 mg in 100 mls @ 100 mls/hr IVPB [facility] [place] Last Admin: 11/25/16 10:00 Dose: 100 mls/hr Cefepime HCl (Maxipime Iv 1 Gm Premix) 1 gm in 50 mls @ 100 mls/hr IVPB Q24H [facility] Last Admin: 11/24/16 22:26 Dose: 100 mls/hr Vancomycin HCl 1,000 mg/ (Sodium Chloride) 250 mls @ 166.6 mls/hr IVPB [facility] [place] Last Admin: 11/25/16 11:00 Dose: 166.6 mls/hr Dopamine HCl/Dextrose (Dopamine 400mg/250ml D5w) 400 mg in 250 mls @ 4.81 mls/ hr IV .Q24H PRN; Protocol; 2 MCG/KG/MIN PRN Reason: TITRATE PER MD ORDER Last Admin: 11/25/16 17:00 Dose: 6 mcg/kg/min, 14.431 mls/hr Sodium Chloride (Sodium Chloride 0.9%) 1,000 mls @ 75 mls/hr IV .[id number] [facility] Last Admin: 11/25/16 17:00 Dose: 75 mls/hr Sodium Chloride (Sodium Chloride 0.9%) 1,000 mls @ 1,000 mls/hr IV .Q1H ONE Stop: 11/25/16 15:44 Lactobacillus Acidophilus (Bacid Acidophilus) 1 cap PO BID [facility] Last Admin: 11/25/16 10:56 Dose: 1 cap Losartan Potassium (Cozaar) 100 mg PO DAILY [facility] Last Admin: 11/25/16 10:55 Dose: 100 mg Nitroglycerin (Nitrostat Sl Tab) 0.4 mg SL Q15M PRN PRN Reason: chest pain - Labs Labs: 11/25/16 16:52 11/25/16 16:52 PT 12.3 SECONDS (9.7-12.2) H 11/25/16 06:20 INR 1.1 11/25/16 06:20 APTT 42 SECONDS (21-34) H 11/25/16 06:20 - Constitutional Appears: No Acute Distress - Head Exam Head Exam: NORMAL INSPECTION Additional comments: + ET tube - Eye Exam Eye Exam: EOMI, Normal appearance Pupil Exam: Mydriatic Additional comments: unable to examine 2ndry to sedation - ENT Exam ENT Exam: Normal Exam - Respiratory Exam Respiratory Exam: Clear to Ausculation Bilateral, NORMAL BREATHING PATTERN - Cardiovascular Exam Cardiovascular Exam: RRR, +S1, +S2 - GI/Abdominal Exam GI & Abdominal Exam: Normal Bowel Sounds - Rectal Exam Rectal Exam: Deferred - Exam Exam: NORMAL INSPECTION External exam: NORMAL EXTERNAL EXAM - Extremities Exam Extremities Exam: Normal Inspection - Back Exam Back Exam: NORMAL INSPECTION - Neurological Exam Neuro motor strength exam: Left Upper Extremity: 3, Right Upper Extremity: 3, Left Lower Extremity: 3, Right Lower Extremity: 3 - Psychiatric Exam Psychiatric exam: Normal Affect, Normal Mood - Skin Skin Exam: Dry, Intact, Warm Assessment and Plan (1) Respiratory failure Assessment & Plan: occurred soon after surgery in Recovery Room. Pt transferred to ICU after necessary intubation 2ndry to hypocapnea and respiratory failure. Etiology? Discussed possible scenarios with family. Pt awakening already as we spoke Status: Acute (2) Intra-abdominal abscess Assessment & Plan: multiple fluid collections, approx 700 ml obtained Status: Acute (3) Anemia of chronic disease Assessment & Plan: continue to watch for Prociirt dose and Acrit as well. Status: Chronic (4) Gastroparesis Assessment & Plan: Explained to pt's family that extensive adhesions my produce symptoms of incomplete obstruction and gastroparesis. Future adhesiolysis may be necessary should complete intestinal obstruction occur Status: Resolved (5) ESRD (end stage renal disease) Status: Chronic (6) Generalized weakness Status: Acute
[2016-11-25] MEDS: Cefepime IV 1 gm in Dextrose 1 GM/50 ML BAG IVPB SCH (22:43)
[2016-11-25] MEDS ORDERED: Propofol 10 mg/ml 1,000 MG/100 ML VIAL IV PRN (23:23)
[2016-11-25 23:38] LABS: NEUTROPHIL 90 % (50-75); TOTAL CELLS COUNTED 100
[2016-11-25 23:39] LABS: LARGE PLATELETS PRESENT; SMUDGE CELLS PRESENT
[2016-11-26] MEDS: Albuterol-Ipratrop 3 mg / 0.5 (3 ml) UD INH SCH ×5 (03:07→20:08)
[2016-11-26] MEDS: Sodium Chloride 0.9% 1,000 ML IV SCH ×2 (03:34→08:35)
[2016-11-26 04:29] LABS: ABG ALLEN TEST POS; ABG MECHANICAL RATE 18; ARTERIAL BLOOD HGB O2 SAT 96.6 % (95.0-98.0); ATERIAL BLOOD GAS PEEP 5; CARBOXYHEMOGLOBIN 1.4 % (0.5-1.5); DRAW SITE RR; HHB 0.4 % (0.0-5.0); METHEMOGLOBIN 1.5 % (0.0-3.0)
[2016-11-26 06:13] LABS: BASO % 0.3 % (0.0-2.0); HEMATOCRIT 26.7 % (34.0-47.0); LYMPH # 0.7 K/uL (1.0-4.3); MEAN CELL VOLUME 88.2 fL (81.0-99.0); MEAN CORPUSCULAR HEMOGLOBIN 28.4 pg (27.0-31.0); MEAN CORPUSCULAR HGB CONC 32.2 g/dL (33.0-37.0); MEAN PLATELET VOLUME 8.9 fL (7.2-11.7); MONO # 0.3 K/uL (0.0-0.8); MONO % 2.8 % (0.0-10.0); PLATELET COUNT 185 K/uL (130-400); RED CELL DISTRIBUTION WIDTH 15.5 % (11.5-14.5); WHITE BLOOD COUNT 10.6 K/uL (4.8-10.8)
[2016-11-26 06:43] LABS: POTASSIUM 4.3 mmol/L (3.6-5.2)
[2016-11-26 06:46] LABS: ALB/GLOB RATIO 0.5 (1.0-2.1); BILIRUBIN,TOTAL 0.6 mg/dL (0.2-1.3); CALCIUM 8.9 mg/dl (8.6-10.4); MAGNESIUM 1.9 mg/dL (1.6-2.3); PHOSPHOROUS 7.4 mg/dL (2.5-4.5); TOTAL PROTEIN 7.2 g/dL (6.3-8.3)
--- NOTE | 2016-11-26 08:38 | RAD ---
HISTORY: NG tube placement COMPARISON: 11/25/2016 FINDINGS: LUNGS: NG tube extending into the stomach. Other lines and tubes in stable position. Mild venous congestion. Small left pleural effusion. Patchy bibasilar airspace opacities. PLEURA: As above. CARDIOVASCULAR: Cardiomegaly. OSSEOUS STRUCTURES: No significant abnormalities. VISUALIZED UPPER ABDOMEN: Normal. OTHER FINDINGS: None. IMPRESSION: Interval insertion of an NG tube.
[2016-11-26 09:05] LABS: NEUTROPHIL 90 % (50-75); TOTAL CELLS COUNTED 100
--- NOTE | 2016-11-26 09:24 | RAD ---
HISTORY: intubated COMPARISON: 11/25/2016 FINDINGS: LUNGS: Lines and tubes stable position. Mild venous congestion. Small left pleural effusion. Patchy bibasilar airspace opacities. PLEURA: As above. CARDIOVASCULAR: Cardiomegaly. Calcification at the aortic knob. OSSEOUS STRUCTURES: Degenerative changes in the spine and shoulders. VISUALIZED UPPER ABDOMEN: Normal. OTHER FINDINGS: None. IMPRESSION: No significant interval change.
[2016-11-26] MEDS: Lactobacillus Acidophilus 500 MU Cap PO SCH ×2 (10:00→17:35)
--- NOTE | 2016-11-26 10:10 | CP.CCUPN ---
<Dale Richardson - Last Filed: 11/26/16 11:46> CCU Subjective - Physician Review Subjective (Free Text): 11/26/16 10:07 PGY-1 progress note Pt seen and examined at bedside. There were no acute issues overnight. Pt is still intubated but alert. Critical Care Time Spent (in minutes): 35 CCU Objective - Vital Signs / Intake & Output Vital Signs (Last 4 hours): Vital Signs Temp Pulse Resp BP Pulse Ox 11/26/16 09:00 107 H 15 100 11/26/16 08:52 117 H 20 163/87 H 100 11/26/16 08:00 97.9 F 79 18 100 11/26/16 07:52 77 18 160/68 H 100 11/26/16 06:20 75 18 100 11/26/16 06:10 72 18 100 Intake and Output (Last 8hrs): Intake & Output 11/25/16 11/26/16 11/26/16 22:59 06:59 14:59 Intake Total 604.4 817.8 258.3 Output Total 65 40 Balance 539.4 777.8 258.3 Weight 139 lb 11.2 oz Intake: IV 30 20 0 Intake, IV Amount 574.4 797.8 258.3 L PICC 74.4 43.2 Left PICC 500 610 225 left hand 42.2 7.7 left picc Y 102.4 25.6 Output: Drainage 65 40 Lower Abdomen 15 40 Urine 0 Urine, Voided 0 - Physical Exam Head: Positive for: Atraumatic, Normocephalic Pupils: Positive for: PERRL Extroacular Muscles: Positive for: EOMI Mouth: Positive for: Moist Mucous Membranes Respiratory/Chest: Positive for: Clear to Auscultation, Good Air Exchange. Negative for: Accessory Muscle Use Cardiovascular: Positive for: Normal S1, S2 Abdomen: Positive for: Normal Bowel Sounds. Negative for: Tenderness, Distention Upper Extremity: Positive for: NORMAL PULSES, Neurovascularly Intact Lower Extremity: Positive for: NORMAL PULSES, Neurovascularly Intact Neurological: Positive for: Motor Func Grossly Intact Skin: Positive for: Warm, Dry Psychiatric: Positive for: Alert - Medications Active Medications: Active Medications Generic Name Dose Route Start Last Admin Trade Name Freq PRN Reason Stop Dose Admin Acetaminophen 650 mg 11/11/16 19:17 11/23/16 18:44 Tylenol 325mg Tab PO 650 mg Q6 PRN Administration temp > 99.5 Albuterol/Ipratropium 3 ml 11/23/16 16:00 11/26/16 08:43 Duoneb 3 Mg/0.5 Mg (3 Ml) Ud INH 3 ml RQ4 MARYLOU Administration Epoetin Mik 10,000 unit 11/13/16 09:00 11/25/16 09:14 Procrit IV Not Given F [facility] Famotidine 20 mg 11/26/16 10:00 11/26/16 09:28 Pepcid IVP 20 mg DAILY MARYLOU Administration Folic Acid 1 mg 11/19/16 10:00 11/26/16 09:28 Folic Acid PO Not Given DAILY MARYLOU Gentamicin Sulfate/Sodium Chloride 80 mg in 100 mls @ 100 mls/hr 11/13/16 09: 00 11/25/16 10:00 Gentamicin Iv 80 Mg Premix IVPB 100 mls/hr [facility] MARYLOU Administration Cefepime HCl 1 gm in 50 mls @ 100 mls/hr 11/17/16 18:00 11/25/16 22:43 Maxipime Iv 1 Gm Premix IVPB 100 mls/hr Q24H MARYLOU Administration Vancomycin HCl 1,000 mg/ 250 mls @ 166.6 mls/hr 11/25/16 09:00 11/25/16 11:00 Sodium Chloride IVPB 166.6 mls/hr [facility] MARYLOU Administration Dopamine HCl/Dextrose 400 mg in 250 mls @ 4.81 mls/hr 11/25/16 15:03 03:00 Dopamine 400mg/250ml D5w IV 2 mcg/kg/min .Q24H PRN 4.81 mls/hr TITRATE PER MD ORDER Titration Protocol 2 MCG/KG/MIN Sodium Chloride 1,000 mls @ 75 mls/hr 11/25/16 17:45 11/26/16 08:35 Sodium Chloride 0.9% IV Not Given .[id number] MARYLOU Fentanyl Citrate 2,500 mcg/ 250 mls @ 63.36 mls/hr 11/25/16 22:15 11/26/16 08 :00 Sodium Chloride IV 1 mcg/kg/hr .[id number] MARYLOU 6.33 mls/hr Protocol Titration 10 MCG/KG/HR Propofol 1,000 mg in 100 mls @ 1.901 mls/hr 11/25/16 23:23 11/26/16 03:32 Diprivan IV 20 mcg/kg/min .Q24H PRN 7.604 mls/hr Agitation Titration Protocol 5 MCG/KG/MIN Lactobacillus Acidophilus 1 cap 11/16/16 18:00 11/25/16 19:25 Bacid Acidophilus PO Not Given BID MARYLOU Losartan Potassium 100 mg 11/22/16 12:30 11/25/16 10:55 Cozaar PO 100 mg DAILY MARYLOU Administration Nitroglycerin 0.4 mg 11/12/16 18:57 Nitrostat Sl Tab SL Q15M PRN chest pain - Patient Studies Lab Studies: Microbiology Studies 11/25/16 15:00 Gram Stain - Final Abdomen Wound Culture - Preliminary NO GROWTH AFTER 24 HOURS 11/23/16 19:00 Gram Stain - Final Abdomen Wound Culture - Final Enterococcus Faecium Lab Studies 11/26/16 11/26/16 11/26/16 Range/Units 06:04 06:04 05:30 WBC 10.6 (4.8-10.8) K/uL RBC 3.03 L (3.80-5.20) Mil/uL Hgb 8.6 L (11.0-16.0) g/dL Hct 26.7 L (34.0-47.0) % MCV 88.2 (81.0-99.0) fL MCH 28.4 (27.0-31.0) pg MCHC 32.2 L (33.0-37.0) g/dL RDW 15.5 H (11.5-14.5) % Plt Count 185 (130-400) K/uL MPV 8.9 (7.2-11.7) fL Neut % (Auto) 89.9 H (50.0-75.0) % Lymph % (Auto) 7.0 L (20.0-40.0) % Dixie % (Auto) 2.8 (0.0-10.0) % Eos % (Auto) 0.0 (0.0-4.0) % Baso % (Auto) 0.3 (0.0-2.0) % Neut # 9.5 H (1.8-7.0) K/uL Lymph # 0.7 L (1.0-4.3) K/uL Dixie # 0.3 (0.0-0.8) K/uL Eos # 0.0 (0.0-0.7) K/uL Baso # 0.0 (0.0-0.2) K/uL Neutrophils % (Manual) 90 H (50-75) % Band Neutrophils % 1 (0-2) % Lymphocytes % (Manual) 8 L (20-40) % Monocytes % (Manual) 1 (0-10) % Hypersegmented Polys Smudge Cells Toxic Granulation Platelet Estimate Normal (NORMAL) Large Platelets Polychromasia Hypochromasia (manual) Slight Poikilocytosis (manual Slight Anisocytosis (manual) Slight Puncture Site pCO2 (35-45) mm/Hg pO2 (80-100) mm/Hg HCO3 (21-28) mmol/L ABG pH (7.35-7.45) ABG Total CO2 (22-28) mmol/L ABG O2 Saturation (95-98) % ABG Base Excess (-2.0-3.0) mmol/L ABG Hemoglobin (11.7-17.4) g/dL ABG Carboxyhemoglobin (0.5-1.5) % POC ABG HHb (Measured) (0.0-5.0) % ABG Methemoglobin (0.0-3.0) % Partha Test ABG Potassium (3.6-5.2) mmol/L VBG pH (7.32-7.43) VBG pCO2 (40-60) mmHg VBG HCO3 mmol/L VBG Total CO2 (22-28) mmol/L VBG O2 Sat (Calc) (40-65) % VBG Base Excess (0.0-2.0) mmol/L VBG Potassium (3.6-5.2) mmol/L A-a O2 Difference mm/Hg Respiratory Index Hgb O2 Saturation (95.0-98.0) % Sodium 133 (132-148) mmol/l Chloride 97 L (98-107) mmol/L Glucose (65-105) mg/dl Lactate (0.7-2.1) mmol/L Liter Flow Mechanical Rate FiO2 % Tidal Volume PEEP Crit Value Called To Crit Value Called By Crit Value Read Back Blood Gas Notified Time Potassium 4.3 (3.6-5.2) mmol/L Carbon Dioxide 23 (22-30) mmol/L Anion Gap 17 (10-20) BUN 26 H (7-17) mg/dL Creatinine 3.0 H (0.7-1.2) MG/DL Est GFR ( Amer) 19 Est GFR (Non-Af Amer) 15 POC Glucose (mg/dL) 161 H (65-110) mg/dL Random Glucose 153 H (65-105) mg/dL Calcium 8.9 (8.6-10.4) mg/dl Phosphorus 7.4 H (2.5-4.5) mg/dL Magnesium 1.9 (1.6-2.3) mg/dL Total Bilirubin 0.6 (0.2-1.3) mg/dL AST 32 (14-36) U/L ALT 23 (9-52) U/L Alkaline Phosphatase 127 H (38-126) U/L Total Protein 7.2 (6.3-8.3) g/dL Albumin 2.5 L (3.5-5.0) g/dL Globulin 4.7 H (2.2-3.9) gm/dL Albumin/Globulin Ratio 0.5 L (1.0-2.1) Arterial Blood Potassium (3.6-5.2) mmol/L Venous Blood Potassium (3.6-5.2) mmol/L 11/26/16 11/25/16 11/25/16 Range/Units 04:20 23:51 18:15 WBC (4.8-10.8) K/uL RBC (3.80-5.20) Mil/uL Hgb (11.0-16.0) g/dL Hct (34.0-47.0) % MCV (81.0-99.0) fL MCH (27.0-31.0) pg MCHC (33.0-37.0) g/dL RDW (11.5-14.5) % Plt Count (130-400) K/uL MPV (7.2-11.7) fL Neut % (Auto) (50.0-75.0) % Lymph % (Auto) (20.0-40.0) % Dixie % (Auto) (0.0-10.0) % Eos % (Auto) (0.0-4.0) % Baso % (Auto) (0.0-2.0) % Neut # (1.8-7.0) K/uL Lymph # (1.0-4.3) K/uL Dixie # (0.0-0.8) K/uL Eos # (0.0-0.7) K/uL Baso # (0.0-0.2) K/uL Neutrophils % (Manual) (50-75) % Band Neutrophils % (0-2) % Lymphocytes % (Manual) (20-40) % Monocytes % (Manual) (0-10) % Hypersegmented Polys Smudge Cells Toxic Granulation Platelet Estimate (NORMAL) Large Platelets Polychromasia Hypochromasia (manual) Poikilocytosis (manual Anisocytosis (manual) Puncture Site Rr pCO2 31 L (35-45) mm/Hg pO2 225 H 61 H (80-100) mm/Hg HCO3 24.4 (21-28) mmol/L ABG pH 7.47 H (7.35-7.45) ABG Total CO2 23.6 (22-28) mmol/L ABG O2 Saturation 99.6 H (95-98) % ABG Base Excess -0.7 (-2.0-3.0) mmol/L ABG Hemoglobin 8.7 L (11.7-17.4) g/dL ABG Carboxyhemoglobin 1.4 (0.5-1.5) % POC ABG HHb (Measured) 0.4 (0.0-5.0) % ABG Methemoglobin 1.5 (0.0-3.0) % Partha Test Pos ABG Potassium (3.6-5.2) mmol/L VBG pH 7.33 (7.32-7.43) VBG pCO2 46 (40-60) mmHg VBG HCO3 23.2 mmol/L VBG Total CO2 25.7 (22-28) mmol/L VBG O2 Sat (Calc) 92.1 H (40-65) % VBG Base Excess -1.9 L (0.0-2.0) mmol/L VBG Potassium 6.5 H* (3.6-5.2) mmol/L A-a O2 Difference 235.0 mm/Hg Respiratory Index 1.0 Hgb O2 Saturation 96.6 (95.0-98.0) % Sodium 136.0 (132-148) mmol/l Chloride 105.0 (98-107) mmol/L Glucose 175 H (65-105) mg/dl Lactate 1.5 (0.7-2.1) mmol/L Liter Flow Mechanical Rate 18 FiO2 70.0 100.0 % Tidal Volume 400 PEEP 5 Crit Value Called To Dr macdonald Crit Value Called By Aníbal gimenez Crit Value Read Back Y Blood Gas Notified Time 1814 Potassium (3.6-5.2) mmol/L Carbon Dioxide (22-30) mmol/L Anion Gap (10-20) BUN (7-17) mg/dL Creatinine (0.7-1.2) MG/DL Est GFR ( Amer) Est GFR (Non-Af Amer) POC Glucose (mg/dL) 208 H (65-110) mg/dL Random Glucose (65-105) mg/dL Calcium (8.6-10.4) mg/dl Phosphorus (2.5-4.5) mg/dL Magnesium (1.6-2.3) mg/dL Total Bilirubin (0.2-1.3) mg/dL AST (14-36) U/L ALT (9-52) U/L Alkaline Phosphatase (38-126) U/L Total Protein (6.3-8.3) g/dL Albumin (3.5-5.0) g/dL Globulin (2.2-3.9) gm/dL Albumin/Globulin Ratio (1.0-2.1) Arterial Blood Potassium (3.6-5.2) mmol/L Venous Blood Potassium 6.5 H* (3.6-5.2) mmol/L 11/25/16 11/25/16 11/25/16 Range/Units 16:52 16:52 16:30 WBC 16.4 H D (4.8-10.8) K/uL RBC 3.41 L (3.80-5.20) Mil/uL Hgb 9.5 L (11.0-16.0) g/dL Hct 30.4 L (34.0-47.0) % MCV 89.3 (81.0-99.0) fL MCH 28.0 (27.0-31.0) pg MCHC 31.3 L (33.0-37.0) g/dL RDW 15.3 H (11.5-14.5) % Plt Count 221 (130-400) K/uL MPV 8.9 (7.2-11.7) fL Neut % (Auto) 95.2 H (50.0-75.0) % Lymph % (Auto) 2.6 L (20.0-40.0) % Dixie % (Auto) 1.5 (0.0-10.0) % Eos % (Auto) 0.6 (0.0-4.0) % Baso % (Auto) 0.1 (0.0-2.0) % Neut # 15.6 H (1.8-7.0) K/uL Lymph # 0.4 L (1.0-4.3) K/uL Dixie # 0.2 (0.0-0.8) K/uL Eos # 0.1 (0.0-0.7) K/uL Baso # 0.0 (0.0-0.2) K/uL Neutrophils % (Manual) 90 H (50-75) % Band Neutrophils % 5 H (0-2) % Lymphocytes % (Manual) 3 L (20-40) % Monocytes % (Manual) 2 (0-10) % Hypersegmented Polys Present Smudge Cells Present Toxic Granulation Present Platelet Estimate Normal (NORMAL) Large Platelets Present Polychromasia Slight Hypochromasia (manual) Poikilocytosis (manual Slight Anisocytosis (manual) Slight Puncture Site Rra pCO2 59 H (35-45) mm/Hg pO2 105 H (80-100) mm/Hg HCO3 22.5 (21-28) mmol/L ABG pH 7.24 L (7.35-7.45) ABG Total CO2 27.1 (22-28) mmol/L ABG O2 Saturation 98.3 H (95-98) % ABG Base Excess -3.1 L (-2.0-3.0) mmol/L ABG Hemoglobin (11.7-17.4) g/dL ABG Carboxyhemoglobin (0.5-1.5) % POC ABG HHb (Measured) (0.0-5.0) % ABG Methemoglobin (0.0-3.0) % Partha Test Pos ABG Potassium 6.7 H* (3.6-5.2) mmol/L VBG pH (7.32-7.43) VBG pCO2 (40-60) mmHg VBG HCO3 mmol/L VBG Total CO2 (22-28) mmol/L VBG O2 Sat (Calc) (40-65) % VBG Base Excess (0.0-2.0) mmol/L VBG Potassium (3.6-5.2) mmol/L A-a O2 Difference 534.0 mm/Hg Respiratory Index 5.1 Hgb O2 Saturation (95.0-98.0) % Sodium 133 138.0 (132-148) mmol/l Chloride 98 107.0 (98-107) mmol/L Glucose 126 H (65-105) mg/dl Lactate 1.4 (0.7-2.1) mmol/L Liter Flow Mechanical Rate 16 FiO2 100.0 % Tidal Volume 400 PEEP 5 Crit Value Called To Dr sanabria Crit Value Called By Aníbal gimenez Crit Value Read Back Y Blood Gas Notified Time 1635 Potassium 6.5 H* D (3.6-5.2) mmol/L Carbon Dioxide 24 (22-30) mmol/L Anion Gap 17 (10-20) BUN 36 H (7-17) mg/dL Creatinine 5.0 H (0.7-1.2) MG/DL Est GFR ( Amer) 10 Est GFR (Non-Af Amer) 9 POC Glucose (mg/dL) (65-110) mg/dL Random Glucose 139 H (65-105) mg/dL Calcium 8.5 L (8.6-10.4) mg/dl Phosphorus (2.5-4.5) mg/dL Magnesium (1.6-2.3) mg/dL Total Bilirubin (0.2-1.3) mg/dL AST (14-36) U/L ALT (9-52) U/L Alkaline Phosphatase (38-126) U/L Total Protein (6.3-8.3) g/dL Albumin (3.5-5.0) g/dL Globulin (2.2-3.9) gm/dL Albumin/Globulin Ratio (1.0-2.1) Arterial Blood Potassium 6.7 H* (3.6-5.2) mmol/L Venous Blood Potassium (3.6-5.2) mmol/L 11/25/16 11/25/16 11/25/16 Range/Units 15:20 15:00 11:31 WBC (4.8-10.8) K/uL RBC (3.80-5.20) Mil/uL Hgb (11.0-16.0) g/dL Hct (34.0-47.0) % MCV (81.0-99.0) fL MCH (27.0-31.0) pg MCHC (33.0-37.0) g/dL RDW (11.5-14.5) % Plt Count (130-400) K/uL MPV (7.2-11.7) fL Neut % (Auto) (50.0-75.0) % Lymph % (Auto) (20.0-40.0) % Dixie % (Auto) (0.0-10.0) % Eos % (Auto) (0.0-4.0) % Baso % (Auto) (0.0-2.0) % Neut # (1.8-7.0) K/uL Lymph # (1.0-4.3) K/uL Dixie # (0.0-0.8) K/uL Eos # (0.0-0.7) K/uL Baso # (0.0-0.2) K/uL Neutrophils % (Manual) (50-75) % Band Neutrophils % (0-2) % Lymphocytes % (Manual) (20-40) % Monocytes % (Manual) (0-10) % Hypersegmented Polys Smudge Cells Toxic Granulation Platelet Estimate (NORMAL) Large Platelets Polychromasia Hypochromasia (manual) Poikilocytosis (manual Anisocytosis (manual) Puncture Site Lra pCO2 > 150 H* (35-45) mm/Hg pO2 104 H (80-100) mm/Hg HCO3 (21-28) mmol/L ABG pH 6.87 L* (7.35-7.45) ABG Total CO2 (22-28) mmol/L ABG O2 Saturation 94.6 L (95-98) % ABG Base Excess (-2.0-3.0) mmol/L ABG Hemoglobin (11.7-17.4) g/dL ABG Carboxyhemoglobin (0.5-1.5) % POC ABG HHb (Measured) (0.0-5.0) % ABG Methemoglobin (0.0-3.0) % Partha Test Pos ABG Potassium 5.7 H (3.6-5.2) mmol/L VBG pH (7.32-7.43) VBG pCO2 (40-60) mmHg VBG HCO3 mmol/L VBG Total CO2 (22-28) mmol/L VBG O2 Sat (Calc) (40-65) % VBG Base Excess (0.0-2.0) mmol/L VBG Potassium (3.6-5.2) mmol/L A-a O2 Difference mm/Hg Respiratory Index Hgb O2 Saturation (95.0-98.0) % Sodium 139.0 (132-148) mmol/l Chloride 108.0 H (98-107) mmol/L Glucose 125 H (65-105) mg/dl Lactate 1.3 (0.7-2.1) mmol/L Liter Flow 6.0 Mechanical Rate FiO2 % Tidal Volume PEEP Crit Value Called To Dr anne anton Crit Value Called By Aníbal gimenez Crit Value Read Back Y Blood Gas Notified Time 1530 Potassium (3.6-5.2) mmol/L Carbon Dioxide (22-30) mmol/L Anion Gap (10-20) BUN (7-17) mg/dL Creatinine (0.7-1.2) MG/DL Est GFR ( Amer) Est GFR (Non-Af Amer) POC Glucose (mg/dL) 135 H 150 H (65-110) mg/dL Random Glucose (65-105) mg/dL Calcium (8.6-10.4) mg/dl Phosphorus (2.5-4.5) mg/dL Magnesium (1.6-2.3) mg/dL Total Bilirubin (0.2-1.3) mg/dL AST (14-36) U/L ALT (9-52) U/L Alkaline Phosphatase (38-126) U/L Total Protein (6.3-8.3) g/dL Albumin (3.5-5.0) g/dL Globulin (2.2-3.9) gm/dL Albumin/Globulin Ratio (1.0-2.1) Arterial Blood Potassium 5.7 H (3.6-5.2) mmol/L Venous Blood Potassium (3.6-5.2) mmol/L Laboratory Results - last 24 hr 11/25/16 11/25/16 11/25/16 11:31 15:00 15:20 WBC RBC Hgb Hct MCV MCH MCHC RDW Plt Count MPV Neut % (Auto) Lymph % (Auto) Dixie % (Auto) Eos % (Auto) Baso % (Auto) Neut # Lymph # Dixie # Eos # Baso # Neutrophils % (Manual) Band Neutrophils % Lymphocytes % (Manual) Monocytes % (Manual) Hypersegmented Polys Smudge Cells Toxic Granulation Platelet Estimate Large Platelets Polychromasia Hypochromasia (manual) Poikilocytosis (manual Anisocytosis (manual) Puncture Site Lra pCO2 > 150 H* pO2 104 H HCO3 ABG pH 6.87 L* ABG Total CO2 ABG O2 Saturation 94.6 L ABG Base Excess ABG Hemoglobin ABG Carboxyhemoglobin POC ABG HHb (Measured) ABG Methemoglobin Partha Test Pos ABG Potassium 5.7 H VBG pH VBG pCO2 VBG HCO3 VBG Total CO2 VBG O2 Sat (Calc) VBG Base Excess VBG Potassium A-a O2 Difference Respiratory Index Hgb O2 Saturation Sodium 139.0 Chloride 108.0 H Glucose 125 H Lactate 1.3 Liter Flow 6.0 Mechanical Rate FiO2 Tidal Volume PEEP Crit Value Called To Dr anne anton Crit Value Called By Aníbal gimenez Crit Value Read Back Y Blood Gas Notified Time 1530 Potassium Carbon Dioxide Anion Gap BUN Creatinine Est GFR ( Amer) Est GFR (Non-Af Amer) POC Glucose (mg/dL) 150 H 135 H Random Glucose Calcium Phosphorus Magnesium Total Bilirubin AST ALT Alkaline Phosphatase Total Protein Albumin Globulin Albumin/Globulin Ratio Arterial Blood Potassium 5.7 H Venous Blood Potassium 11/25/16 11/25/16 11/25/16 16:30 16:52 16:52 WBC 16.4 H D RBC 3.41 L Hgb 9.5 L Hct 30.4 L MCV 89.3 MCH 28.0 MCHC 31.3 L RDW 15.3 H Plt Count 221 MPV 8.9 Neut % (Auto) 95.2 H Lymph % (Auto) 2.6 L Dixie % (Auto) 1.5 Eos % (Auto) 0.6 Baso % (Auto) 0.1 Neut # 15.6 H Lymph # 0.4 L Dixie # 0.2 Eos # 0.1 Baso # 0.0 Neutrophils % (Manual) 90 H Band Neutrophils % 5 H Lymphocytes % (Manual) 3 L Monocytes % (Manual) 2 Hypersegmented Polys Present Smudge Cells Present Toxic Granulation Present Platelet Estimate Normal Large Platelets Present Polychromasia Slight Hypochromasia (manual) Poikilocytosis (manual Slight Anisocytosis (manual) Slight Puncture Site Rra pCO2 59 H pO2 105 H HCO3 22.5 ABG pH 7.24 L ABG Total CO2 27.1 ABG O2 Saturation 98.3 H ABG Base Excess -3.1 L ABG Hemoglobin ABG Carboxyhemoglobin POC ABG HHb (Measured) ABG Methemoglobin Partha Test Pos ABG Potassium 6.7 H* VBG pH VBG pCO2 VBG HCO3 VBG Total CO2 VBG O2 Sat (Calc) VBG Base Excess VBG Potassium A-a O2 Difference 534.0 Respiratory Index 5.1 Hgb O2 Saturation Sodium 138.0 133 Chloride 107.0 98 Glucose 126 H Lactate 1.4 Liter Flow Mechanical Rate 16 FiO2 100.0 Tidal Volume 400 PEEP 5 Crit Value Called To Dr sanabria Crit Value Called By Aníbal gimenez Crit Value Read Back Y Blood Gas Notified Time 1635 Potassium 6.5 H* D Carbon Dioxide 24 Anion Gap 17 BUN 36 H Creatinine 5.0 H Est GFR ( Amer) 10 Est GFR (Non-Af Amer) 9 POC Glucose (mg/dL) Random Glucose 139 H Calcium 8.5 L Phosphorus Magnesium Total Bilirubin AST ALT Alkaline Phosphatase Total Protein Albumin Globulin Albumin/Globulin Ratio Arterial Blood Potassium 6.7 H* Venous Blood Potassium 11/25/16 11/25/16 11/26/16 18:15 23:51 04:20 WBC RBC Hgb Hct MCV MCH MCHC RDW Plt Count MPV Neut % (Auto) Lymph % (Auto) Dixie % (Auto) Eos % (Auto) Baso % (Auto) Neut # Lymph # Dixie # Eos # Baso # Neutrophils % (Manual) Band Neutrophils % Lymphocytes % (Manual) Monocytes % (Manual) Hypersegmented Polys Smudge Cells Toxic Granulation Platelet Estimate Large Platelets Polychromasia Hypochromasia (manual) Poikilocytosis (manual Anisocytosis (manual) Puncture Site Rr pCO2 31 L pO2 61 H 225 H HCO3 24.4 ABG pH 7.47 H ABG Total CO2 23.6 ABG O2 Saturation 99.6 H ABG Base Excess -0.7 ABG Hemoglobin 8.7 L ABG Carboxyhemoglobin 1.4 POC ABG HHb (Measured) 0.4 ABG Methemoglobin 1.5 Partha Test Pos ABG Potassium VBG pH 7.33 VBG pCO2 46 VBG HCO3 23.2 VBG Total CO2 25.7 VBG O2 Sat (Calc) 92.1 H VBG Base Excess -1.9 L VBG Potassium 6.5 H* A-a O2 Difference 235.0 Respiratory Index 1.0 Hgb O2 Saturation 96.6 Sodium 136.0 Chloride 105.0 Glucose 175 H Lactate 1.5 Liter Flow Mechanical Rate 18 FiO2 100.0 70.0 Tidal Volume 400 PEEP 5 Crit Value Called To Dr macdonald Crit Value Called By Aníbal gimenez Crit Value Read Back Y Blood Gas Notified Time 181 Potassium Carbon Dioxide Anion Gap BUN Creatinine Est GFR ( Amer) Est GFR (Non-Af Amer) POC Glucose (mg/dL) 208 H Random Glucose Calcium Phosphorus Magnesium Total Bilirubin AST ALT Alkaline Phosphatase Total Protein Albumin Globulin Albumin/Globulin Ratio Arterial Blood Potassium Venous Blood Potassium 6.5 H* 11/26/16 11/26/16 11/26/16 05:30 06:04 06:04 WBC 10.6 RBC 3.03 L Hgb 8.6 L Hct 26.7 L MCV 88.2 MCH 28.4 MCHC 32.2 L RDW 15.5 H Plt Count 185 MPV 8.9 Neut % (Auto) 89.9 H Lymph % (Auto) 7.0 L Dixie % (Auto) 2.8 Eos % (Auto) 0.0 Baso % (Auto) 0.3 Neut # 9.5 H Lymph # 0.7 L Dixie # 0.3 Eos # 0.0 Baso # 0.0 Neutrophils % (Manual) 90 H Band Neutrophils % 1 Lymphocytes % (Manual) 8 L Monocytes % (Manual) 1 Hypersegmented Polys Smudge Cells Toxic Granulation Platelet Estimate Normal Large Platelets Polychromasia Hypochromasia (manual) Slight Poikilocytosis (manual Slight Anisocytosis (manual) Slight Puncture Site pCO2 pO2 HCO3 ABG pH ABG Total CO2 ABG O2 Saturation ABG Base Excess ABG Hemoglobin ABG Carboxyhemoglobin POC ABG HHb (Measured) ABG Methemoglobin Partha Test ABG Potassium VBG pH VBG pCO2 VBG HCO3 VBG Total CO2 VBG O2 Sat (Calc) VBG Base Excess VBG Potassium A-a O2 Difference Respiratory Index Hgb O2 Saturation Sodium 133 Chloride 97 L Glucose Lactate Liter Flow Mechanical Rate FiO2 Tidal Volume PEEP Crit Value Called To Crit Value Called By Crit Value Read Back Blood Gas Notified Time Potassium 4.3 Carbon Dioxide 23 Anion Gap 17 BUN 26 H Creatinine 3.0 H Est GFR ( Amer) 19 Est GFR (Non-Af Amer) 15 POC Glucose (mg/dL) 161 H Random Glucose 153 H Calcium 8.9 Phosphorus 7.4 H Magnesium 1.9 Total Bilirubin 0.6 AST 32 ALT 23 Alkaline Phosphatase 127 H Total Protein 7.2 Albumin 2.5 L Globulin 4.7 H Albumin/Globulin Ratio 0.5 L Arterial Blood Potassium Venous Blood Potassium Fingerstick Blood Sugar Results: 166 Review of Systems - Review of Systems Systems not reviewed;Unavailable: Intubated Critical Care Progress Note - Nutrition Nutrition: Nutrition Category Date Time Status Renal Diet [DIET] Diets 11/25/16 Dinner Active Assessment/Plan - Assessment and Plan (Free Text) Assessment: This is a 71 yo [place] F with PMH of ESRD and HTN that was in hypercapneic respiratory failure s/p exploratory laparotomy w/ drainage of intra-abdominal abscess, secondary to over-sedation vs sepsis. Pt is intubated but alert and off of pressor support Plan: Neuro: Intubated, but alert. Follows some simple commands. Continue to monitor Pulm: Intubated on CPAP. ABG shows resolution of hypercapnea and acidemia. Off of sedation, wean as tolerated. CV: Hypotension resolved, off of Dopamine. Continue to monitor GI: Nothing by mouth, no acute issues Renal: ESRD on HD. Nephro following, pt received HD last night. Electrolytes corrected, will continue to monitor. Heme: Hgb stable s/p transfusions. Continue to monitor and transfuse as necessary. ID: ID following. Continue IV abx Endo: No acute issues DVT proph - held for procedure GI proph - Pepcid Anaya for strict I/O's during acute illness Code status - full code <Liang Correa S - Last Filed: 11/26/16 17:17> CCU Objective - Vital Signs / Intake & Output Vital Signs (Last 4 hours): Vital Signs Temp Pulse Resp BP Pulse Ox 11/26/16 16:53 114/45 L 11/26/16 16:52 80 16 99 11/26/16 16:00 98 F 86 16 99 11/26/16 15:52 87 19 146/69 100 11/26/16 15:00 86 100 11/26/16 14:52 85 161/74 H 100 11/26/16 14:00 88 100 11/26/16 13:52 94 H 153/72 H 98 Intake and Output (Last 8hrs): Intake & Output 11/26/16 11/26/16 11/26/16 06:59 14:59 22:59 Intake Total 817.8 258.3 50 Output Total 40 20 Balance 777.8 258.3 30 Intake: IV 20 0 Intake, IV Amount 797.8 258.3 L PICC 43.2 Left PICC 610 225 left hand 42.2 7.7 left picc Y 102.4 25.6 Oral 0 50 Output: Drainage 40 20 Lower Abdomen 40 20 - Medications Active Medications: Active Medications Generic Name Dose Route Start Last Admin Trade Name Freq PRN Reason Stop Dose Admin Acetaminophen 650 mg 11/11/16 19:17 11/23/16 18:44 Tylenol 325mg Tab PO 650 mg Q6 PRN Administration temp > 99.5 Albuterol/Ipratropium 3 ml 11/23/16 16:00 11/26/16 15:57 Duoneb 3 Mg/0.5 Mg (3 Ml) Ud INH 3 ml RQ4 MARYLOU Administration Epoetin Mik 10,000 unit 11/13/16 09:00 11/25/16 09:14 Procrit IV Not Given MWF MARYLOU Famotidine 20 mg 11/26/16 10:00 11/26/16 09:28 Pepcid IVP 20 mg DAILY MARYLOU Administration Folic Acid 1 mg 11/19/16 10:00 11/26/16 09:28 Folic Acid PO Not Given DAILY MARYLOU Gentamicin Sulfate/Sodium Chloride 80 mg in 100 mls @ 100 mls/hr 11/13/16 09: 00 11/25/16 10:00 Gentamicin Iv 80 Mg Premix IVPB 100 mls/hr MWF MARYLOU Administration Cefepime HCl 1 gm in 50 mls @ 100 mls/hr 11/17/16 18:00 11/25/16 22:43 Maxipime Iv 1 Gm Premix IVPB 100 mls/hr Q24H MARYLOU Administration Vancomycin HCl 1,000 mg/ 250 mls @ 166.6 mls/hr 11/25/16 09:00 11/25/16 11:00 Sodium Chloride IVPB 166.6 mls/hr MWF MARYLOU Administration Dopamine HCl/Dextrose 400 mg in 250 mls @ 4.81 mls/hr 11/25/16 15:03 03:00 Dopamine 400mg/250ml D5w IV 2 mcg/kg/min .Q24H PRN 4.81 mls/hr TITRATE PER MD ORDER Titration Protocol 2 MCG/KG/MIN Lactobacillus Acidophilus 1 cap 11/16/16 18:00 11/26/16 10:00 Bacid Acidophilus PO Not Given BID [facility] Losartan Potassium 100 mg 11/22/16 12:30 11/26/16 10:00 Cozaar PO Not Given DAILY [facility] Nitroglycerin 0.4 mg 11/12/16 18:57 Nitrostat Sl Tab SL Q15M PRN chest pain - Patient Studies Lab Studies: Microbiology Studies 11/25/16 15:00 Gram Stain - Final Abdomen Wound Culture - Preliminary NO GROWTH AFTER 24 HOURS 11/23/16 19:00 Gram Stain - Final Abdomen Wound Culture - Final Enterococcus Faecium Lab Studies 11/26/16 11/26/16 11/26/16 Range/Units 12:02 06:04 06:04 WBC 10.6 (4.8-10.8) K/uL RBC 3.03 L (3.80-5.20) Mil/uL Hgb 8.6 L (11.0-16.0) g/dL Hct 26.7 L (34.0-47.0) % MCV 88.2 (81.0-99.0) fL MCH 28.4 (27.0-31.0) pg MCHC 32.2 L (33.0-37.0) g/dL RDW 15.5 H (11.5-14.5) % Plt Count 185 (130-400) K/uL MPV 8.9 (7.2-11.7) fL Neut % (Auto) 89.9 H (50.0-75.0) % Lymph % (Auto) 7.0 L (20.0-40.0) % Dixie % (Auto) 2.8 (0.0-10.0) % Eos % (Auto) 0.0 (0.0-4.0) % Baso % (Auto) 0.3 (0.0-2.0) % Neut # 9.5 H (1.8-7.0) K/uL Lymph # 0.7 L (1.0-4.3) K/uL Dixie # 0.3 (0.0-0.8) K/uL Eos # 0.0 (0.0-0.7) K/uL Baso # 0.0 (0.0-0.2) K/uL Neutrophils % (Manual) 90 H (50-75) % Band Neutrophils % 1 (0-2) % Lymphocytes % (Manual) 8 L (20-40) % Monocytes % (Manual) 1 (0-10) % Hypersegmented Polys Smudge Cells Toxic Granulation Platelet Estimate Normal (NORMAL) Large Platelets Polychromasia Hypochromasia (manual) Slight Poikilocytosis (manual Slight Anisocytosis (manual) Slight Puncture Site pCO2 (35-45) mm/Hg pO2 (30-55) mm/Hg HCO3 (21-28) mmol/L ABG pH (7.35-7.45) ABG Total CO2 (22-28) mmol/L ABG O2 Saturation (95-98) % ABG Base Excess (-2.0-3.0) mmol/L ABG Hemoglobin (11.7-17.4) g/dL ABG Carboxyhemoglobin (0.5-1.5) % POC ABG HHb (Measured) (0.0-5.0) % ABG Methemoglobin (0.0-3.0) % Partha Test VBG pH (7.32-7.43) VBG pCO2 (40-60) mmHg VBG HCO3 mmol/L VBG Total CO2 (22-28) mmol/L VBG O2 Sat (Calc) (40-65) % VBG Base Excess (0.0-2.0) mmol/L VBG Potassium (3.6-5.2) mmol/L A-a O2 Difference mm/Hg Respiratory Index Hgb O2 Saturation (95.0-98.0) % Glucose (65-105) mg/dl Lactate (0.7-2.1) mmol/L Mechanical Rate FiO2 % Tidal Volume PEEP Crit Value Called To Crit Value Called By Crit Value Read Back Blood Gas Notified Time Sodium 133 (132-148) mmol/L Potassium 4.3 (3.6-5.2) mmol/L Chloride 97 L (98-107) mmol/L Carbon Dioxide 23 (22-30) mmol/L Anion Gap 17 (10-20) BUN 26 H (7-17) mg/dL Creatinine 3.0 H (0.7-1.2) MG/DL Est GFR ( Amer) 19 Est GFR (Non-Af Amer) 15 POC Glucose (mg/dL) 175 H (65-110) mg/dL Random Glucose 153 H (65-105) mg/dL Calcium 8.9 (8.6-10.4) mg/dl Phosphorus 7.4 H (2.5-4.5) mg/dL Magnesium 1.9 (1.6-2.3) mg/dL Total Bilirubin 0.6 (0.2-1.3) mg/dL AST 32 (14-36) U/L ALT 23 (9-52) U/L Alkaline Phosphatase 127 H (38-126) U/L Total Protein 7.2 (6.3-8.3) g/dL Albumin 2.5 L (3.5-5.0) g/dL Globulin 4.7 H (2.2-3.9) gm/dL Albumin/Globulin Ratio 0.5 L (1.0-2.1) Venous Blood Potassium (3.6-5.2) mmol/L 11/26/16 11/26/16 11/25/16 Range/Units 05:30 04:20 23:51 WBC (4.8-10.8) K/uL RBC (3.80-5.20) Mil/uL Hgb (11.0-16.0) g/dL Hct (34.0-47.0) % MCV (81.0-99.0) fL MCH (27.0-31.0) pg MCHC (33.0-37.0) g/dL RDW (11.5-14.5) % Plt Count (130-400) K/uL MPV (7.2-11.7) fL Neut % (Auto) (50.0-75.0) % Lymph % (Auto) (20.0-40.0) % Dixie % (Auto) (0.0-10.0) % Eos % (Auto) (0.0-4.0) % Baso % (Auto) (0.0-2.0) % Neut # (1.8-7.0) K/uL Lymph # (1.0-4.3) K/uL Dixie # (0.0-0.8) K/uL Eos # (0.0-0.7) K/uL Baso # (0.0-0.2) K/uL Neutrophils % (Manual) (50-75) % Band Neutrophils % (0-2) % Lymphocytes % (Manual) (20-40) % Monocytes % (Manual) (0-10) % Hypersegmented Polys Smudge Cells Toxic Granulation Platelet Estimate (NORMAL) Large Platelets Polychromasia Hypochromasia (manual) Poikilocytosis (manual Anisocytosis (manual) Puncture Site Rr pCO2 31 L (35-45) mm/Hg pO2 225 H (30-55) mm/Hg HCO3 24.4 (21-28) mmol/L ABG pH 7.47 H (7.35-7.45) ABG Total CO2 23.6 (22-28) mmol/L ABG O2 Saturation 99.6 H (95-98) % ABG Base Excess -0.7 (-2.0-3.0) mmol/L ABG Hemoglobin 8.7 L (11.7-17.4) g/dL ABG Carboxyhemoglobin 1.4 (0.5-1.5) % POC ABG HHb (Measured) 0.4 (0.0-5.0) % ABG Methemoglobin 1.5 (0.0-3.0) % Partha Test Pos VBG pH (7.32-7.43) VBG pCO2 (40-60) mmHg VBG HCO3 mmol/L VBG Total CO2 (22-28) mmol/L VBG O2 Sat (Calc) (40-65) % VBG Base Excess (0.0-2.0) mmol/L VBG Potassium (3.6-5.2) mmol/L A-a O2 Difference 235.0 mm/Hg Respiratory Index 1.0 Hgb O2 Saturation 96.6 (95.0-98.0) % Glucose (65-105) mg/dl Lactate (0.7-2.1) mmol/L Mechanical Rate 18 FiO2 70.0 % Tidal Volume 400 PEEP 5 Crit Value Called To Crit Value Called By Crit Value Read Back Blood Gas Notified Time Sodium (132-148) mmol/L Potassium (3.6-5.2) mmol/L Chloride (98-107) mmol/L Carbon Dioxide (22-30) mmol/L Anion Gap (10-20) BUN (7-17) mg/dL Creatinine (0.7-1.2) MG/DL Est GFR ( Amer) Est GFR (Non-Af Amer) POC Glucose (mg/dL) 161 H 208 H (65-110) mg/dL Random Glucose (65-105) mg/dL Calcium (8.6-10.4) mg/dl Phosphorus (2.5-4.5) mg/dL Magnesium (1.6-2.3) mg/dL Total Bilirubin (0.2-1.3) mg/dL AST (14-36) U/L ALT (9-52) U/L Alkaline Phosphatase (38-126) U/L Total Protein (6.3-8.3) g/dL Albumin (3.5-5.0) g/dL Globulin (2.2-3.9) gm/dL Albumin/Globulin Ratio (1.0-2.1) Venous Blood Potassium (3.6-5.2) mmol/L 11/25/16 11/25/16 11/25/16 Range/Units 18:15 16:52 16:52 WBC (4.8-10.8) K/uL RBC (3.80-5.20) Mil/uL Hgb (11.0-16.0) g/dL Hct (34.0-47.0) % MCV (81.0-99.0) fL MCH (27.0-31.0) pg MCHC (33.0-37.0) g/dL RDW (11.5-14.5) % Plt Count (130-400) K/uL MPV (7.2-11.7) fL Neut % (Auto) (50.0-75.0) % Lymph % (Auto) (20.0-40.0) % Dixie % (Auto) (0.0-10.0) % Eos % (Auto) (0.0-4.0) % Baso % (Auto) (0.0-2.0) % Neut # (1.8-7.0) K/uL Lymph # (1.0-4.3) K/uL Dixie # (0.0-0.8) K/uL Eos # (0.0-0.7) K/uL Baso # (0.0-0.2) K/uL Neutrophils % (Manual) 90 H (50-75) % Band Neutrophils % 5 H (0-2) % Lymphocytes % (Manual) 3 L (20-40) % Monocytes % (Manual) 2 (0-10) % Hypersegmented Polys Present Smudge Cells Present Toxic Granulation Present Platelet Estimate Normal (NORMAL) Large Platelets Present Polychromasia Slight Hypochromasia (manual) Poikilocytosis (manual Slight Anisocytosis (manual) Slight Puncture Site pCO2 (35-45) mm/Hg pO2 61 H (30-55) mm/Hg HCO3 (21-28) mmol/L ABG pH (7.35-7.45) ABG Total CO2 (22-28) mmol/L ABG O2 Saturation (95-98) % ABG Base Excess (-2.0-3.0) mmol/L ABG Hemoglobin (11.7-17.4) g/dL ABG Carboxyhemoglobin (0.5-1.5) % POC ABG HHb (Measured) (0.0-5.0) % ABG Methemoglobin (0.0-3.0) % Partha Test VBG pH 7.33 (7.32-7.43) VBG pCO2 46 (40-60) mmHg VBG HCO3 23.2 mmol/L VBG Total CO2 25.7 (22-28) mmol/L VBG O2 Sat (Calc) 92.1 H (40-65) % VBG Base Excess -1.9 L (0.0-2.0) mmol/L VBG Potassium 6.5 H* (3.6-5.2) mmol/L A-a O2 Difference mm/Hg Respiratory Index Hgb O2 Saturation (95.0-98.0) % Glucose 175 H (65-105) mg/dl Lactate 1.5 (0.7-2.1) mmol/L Mechanical Rate FiO2 100.0 % Tidal Volume PEEP Crit Value Called To Dr macdonald Crit Value Called By Aníbal gimenez Crit Value Read Back Y Blood Gas Notified Time 181 Sodium 136.0 133 (132-148) mmol/L Potassium 6.5 H* D (3.6-5.2) mmol/L Chloride 105.0 98 (98-107) mmol/L Carbon Dioxide 24 (22-30) mmol/L Anion Gap 17 (10-20) BUN 36 H (7-17) mg/dL Creatinine 5.0 H (0.7-1.2) MG/DL Est GFR ( Amer) 10 Est GFR (Non-Af Amer) 9 POC Glucose (mg/dL) (65-110) mg/dL Random Glucose 139 H (65-105) mg/dL Calcium 8.5 L (8.6-10.4) mg/dl Phosphorus (2.5-4.5) mg/dL Magnesium (1.6-2.3) mg/dL Total Bilirubin (0.2-1.3) mg/dL AST (14-36) U/L ALT (9-52) U/L Alkaline Phosphatase (38-126) U/L Total Protein (6.3-8.3) g/dL Albumin (3.5-5.0) g/dL Globulin (2.2-3.9) gm/dL Albumin/Globulin Ratio (1.0-2.1) Venous Blood Potassium 6.5 H* (3.6-5.2) mmol/L Laboratory Results - last 24 hr 11/25/16 11/25/16 11/25/16 16:52 16:52 18:15 WBC RBC Hgb Hct MCV MCH MCHC RDW Plt Count MPV Neut % (Auto) Lymph % (Auto) Dixie % (Auto) Eos % (Auto) Baso % (Auto) Neut # Lymph # Dixie # Eos # Baso # Neutrophils % (Manual) 90 H Band Neutrophils % 5 H Lymphocytes % (Manual) 3 L Monocytes % (Manual) 2 Hypersegmented Polys Present Smudge Cells Present Toxic Granulation Present Platelet Estimate Normal Large Platelets Present Polychromasia Slight Hypochromasia (manual) Poikilocytosis (manual Slight Anisocytosis (manual) Slight Puncture Site pCO2 pO2 61 H HCO3 ABG pH ABG Total CO2 ABG O2 Saturation ABG Base Excess ABG Hemoglobin ABG Carboxyhemoglobin POC ABG HHb (Measured) ABG Methemoglobin Partha Test VBG pH 7.33 VBG pCO2 46 VBG HCO3 23.2 VBG Total CO2 25.7 VBG O2 Sat (Calc) 92.1 H VBG Base Excess -1.9 L VBG Potassium 6.5 H* A-a O2 Difference Respiratory Index Hgb O2 Saturation Glucose 175 H Lactate 1.5 Mechanical Rate FiO2 100.0 Tidal Volume PEEP Crit Value Called To Dr macdonald Crit Value Called By Aníbal gimenez Crit Value Read Back Y Blood Gas Notified Time 1815 Sodium 133 136.0 Potassium 6.5 H* D Chloride 98 105.0 Carbon Dioxide 24 Anion Gap 17 BUN 36 H Creatinine 5.0 H Est GFR ( Amer) 10 Est GFR (Non-Af Amer) 9 POC Glucose (mg/dL) Random Glucose 139 H Calcium 8.5 L Phosphorus Magnesium Total Bilirubin AST ALT Alkaline Phosphatase Total Protein Albumin Globulin Albumin/Globulin Ratio Venous Blood Potassium 6.5 H* 11/25/16 11/26/16 11/26/16 23:51 04:20 05:30 WBC RBC Hgb Hct MCV MCH MCHC RDW Plt Count MPV Neut % (Auto) Lymph % (Auto) Dixie % (Auto) Eos % (Auto) Baso % (Auto) Neut # Lymph # Dixie # Eos # Baso # Neutrophils % (Manual) Band Neutrophils % Lymphocytes % (Manual) Monocytes % (Manual) Hypersegmented Polys Smudge Cells Toxic Granulation Platelet Estimate Large Platelets Polychromasia Hypochromasia (manual) Poikilocytosis (manual Anisocytosis (manual) Puncture Site Rr pCO2 31 L pO2 225 H HCO3 24.4 ABG pH 7.47 H ABG Total CO2 23.6 ABG O2 Saturation 99.6 H ABG Base Excess -0.7 ABG Hemoglobin 8.7 L ABG Carboxyhemoglobin 1.4 POC ABG HHb (Measured) 0.4 ABG Methemoglobin 1.5 Partha Test Pos VBG pH VBG pCO2 VBG HCO3 VBG Total CO2 VBG O2 Sat (Calc) VBG Base Excess VBG Potassium A-a O2 Difference 235.0 Respiratory Index 1.0 Hgb O2 Saturation 96.6 Glucose Lactate Mechanical Rate 18 FiO2 70.0 Tidal Volume 400 PEEP 5 Crit Value Called To Crit Value Called By Crit Value Read Back Blood Gas Notified Time Sodium Potassium Chloride Carbon Dioxide Anion Gap BUN Creatinine Est GFR ( Amer) Est GFR (Non-Af Amer) POC Glucose (mg/dL) 208 H 161 H Random Glucose Calcium Phosphorus Magnesium Total Bilirubin AST ALT Alkaline Phosphatase Total Protein Albumin Globulin Albumin/Globulin Ratio Venous Blood Potassium 11/26/16 11/26/16 11/26/16 06:04 06:04 12:02 WBC 10.6 RBC 3.03 L Hgb 8.6 L Hct 26.7 L MCV 88.2 MCH 28.4 MCHC 32.2 L RDW 15.5 H Plt Count 185 MPV 8.9 Neut % (Auto) 89.9 H Lymph % (Auto) 7.0 L Dixie % (Auto) 2.8 Eos % (Auto) 0.0 Baso % (Auto) 0.3 Neut # 9.5 H Lymph # 0.7 L Dixie # 0.3 Eos # 0.0 Baso # 0.0 Neutrophils % (Manual) 90 H Band Neutrophils % 1 Lymphocytes % (Manual) 8 L Monocytes % (Manual) 1 Hypersegmented Polys Smudge Cells Toxic Granulation Platelet Estimate Normal Large Platelets Polychromasia Hypochromasia (manual) Slight Poikilocytosis (manual Slight Anisocytosis (manual) Slight Puncture Site pCO2 pO2 HCO3 ABG pH ABG Total CO2 ABG O2 Saturation ABG Base Excess ABG Hemoglobin ABG Carboxyhemoglobin POC ABG HHb (Measured) ABG Methemoglobin Partha Test VBG pH VBG pCO2 VBG HCO3 VBG Total CO2 VBG O2 Sat (Calc) VBG Base Excess VBG Potassium A-a O2 Difference Respiratory Index Hgb O2 Saturation Glucose Lactate Mechanical Rate FiO2 Tidal Volume PEEP Crit Value Called To Crit Value Called By Crit Value Read Back Blood Gas Notified Time Sodium 133 Potassium 4.3 Chloride 97 L Carbon Dioxide 23 Anion Gap 17 BUN 26 H Creatinine 3.0 H Est GFR ( Amer) 19 Est GFR (Non-Af Amer) 15 POC Glucose (mg/dL) 175 H Random Glucose 153 H Calcium 8.9 Phosphorus 7.4 H Magnesium 1.9 Total Bilirubin 0.6 AST 32 ALT 23 Alkaline Phosphatase 127 H Total Protein 7.2 Albumin 2.5 L Globulin 4.7 H Albumin/Globulin Ratio 0.5 L Venous Blood Potassium Critical Care Progress Note - Nutrition Nutrition: Nutrition Category Date Time Status Liquid Diet [DIET] Diets 11/26/16 Dinner Active Assessment/Plan (1) Dyspnea Current Visit: Yes Status: Acute (2) Intra-abdominal abscess Current Visit: Yes Status: Acute Attending/Attestation - Attestation I have personally seen and examined this patient.: Yes I have fully participated in the care of the patient.: Yes I have reviewed all pertinent clinical information: Yes Notes (Text): 11/26/16 17:14 Patient seen and examined in the intensive care unit. Case discussed with house staff in the morning rounds. Patient extubated after a weaning trial Comfortable in no respiratory distress Status post hemodialysis Continue antibiotics Status post drainage of abscess
--- NOTE | 2016-11-26 10:27 | CP.PCM.PN ---
Subjective - Date & Time of Evaluation Date of Evaluation: 11/26/16 Time of Evaluation: 10:25 - Subjective Subjective: Surgery: Dr. Garzon Patient S&E at bedside. Pt is currently intubated and sedated but eyes open to verbal stimuli. Patient is on CPAP ventilation mode. Per nursing no acute events overnight. Objective - Vital Signs/Intake and Output Vital Signs (last 24 hours): Temp Pulse Resp BP Pulse Ox 97.9 F 107 H 15 163/87 H 100 11/26/16 08:00 11/26/16 09:00 11/26/16 09:00 11/26/16 08:52 11/26/16 09:00 Intake and Output: 11/26/16 11/26/16 06:59 18:59 Intake Total 1165.8 258.3 Output Total 40 Balance 1125.8 258.3 - Medications Medications: Current Medications Acetaminophen (Tylenol 325mg Tab) 650 mg PO Q6 PRN PRN Reason: temp > 99.5 Last Admin: 11/23/16 18:44 Dose: 650 mg Albuterol/Ipratropium (Duoneb 3 Mg/0.5 Mg (3 Ml) Ud) 3 ml INH RQ4 [facility] Last Admin: 11/26/16 08:43 Dose: 3 ml Epoetin Mik (Procrit) 10,000 unit IV [facility] Last Admin: 11/25/16 09:14 Dose: Not Given Famotidine (Pepcid) 20 mg IVP DAILY [facility] Last Admin: 11/26/16 09:28 Dose: 20 mg Folic Acid (Folic Acid) 1 mg PO DAILY [facility] Last Admin: 11/26/16 09:28 Dose: Not Given Gentamicin Sulfate/Sodium Chloride (Gentamicin Iv 80 Mg Premix) 80 mg in 100 mls @ 100 mls/hr IVPB MWF [facility] Last Admin: 11/25/16 10:00 Dose: 100 mls/hr Cefepime HCl (Maxipime Iv 1 Gm Premix) 1 gm in 50 mls @ 100 mls/hr IVPB Q24H [facility] Last Admin: 11/25/16 22:43 Dose: 100 mls/hr Vancomycin HCl 1,000 mg/ (Sodium Chloride) 250 mls @ 166.6 mls/hr IVPB [facility] Last Admin: 11/25/16 11:00 Dose: 166.6 mls/hr Dopamine HCl/Dextrose (Dopamine 400mg/250ml D5w) 400 mg in 250 mls @ 4.81 mls/ hr IV .Q24H PRN; Protocol; 2 MCG/KG/MIN PRN Reason: TITRATE PER MD ORDER Last Titration: 11/26/16 03:00 Dose: 2 mcg/kg/min, 4.81 mls/hr Sodium Chloride (Sodium Chloride 0.9%) 1,000 mls @ 75 mls/hr IV .[id number] [facility] Last Admin: 11/26/16 08:35 Dose: Not Given Fentanyl Citrate 2,500 mcg/ (Sodium Chloride) 250 mls @ 63.36 mls/hr IV .[id number] MARYLOU; 10 MCG/KG/HR PRN Reason: Protocol Last Titration: 11/26/16 08:00 Dose: 1 mcg/kg/hr, 6.33 mls/hr Propofol (Diprivan) 1,000 mg in 100 mls @ 1.901 mls/hr IV .Q24H PRN; Protocol; 5 MCG/KG/MIN PRN Reason: Agitation Last Titration: 11/26/16 03:32 Dose: 20 mcg/kg/min, 7.604 mls/hr Lactobacillus Acidophilus (Bacid Acidophilus) 1 cap PO BID [facility] Last Admin: 11/25/16 19:25 Dose: Not Given Losartan Potassium (Cozaar) 100 mg PO DAILY [facility] Last Admin: 11/25/16 10:55 Dose: 100 mg Nitroglycerin (Nitrostat Sl Tab) 0.4 mg SL Q15M PRN PRN Reason: chest pain - Labs Labs: 11/26/16 06:04 11/26/16 06:04 PT 12.3 SECONDS (9.7-12.2) H 11/25/16 06:20 INR 1.1 11/25/16 06:20 APTT 42 SECONDS (21-34) H 11/25/16 06:20 - Constitutional Appears: Non-toxic, No Acute Distress - Head Exam Head Exam: ATRAUMATIC, NORMOCEPHALIC - Eye Exam Eye Exam: EOMI - ENT Exam ENT Exam: Mucous Membranes Moist Additional comments: ET tube in place, OGT in place - Respiratory Exam Respiratory Exam: Clear to Ausculation Bilateral. absent: Wheezes, Respiratory Distress Additional comments: intubated, on CPAP - Cardiovascular Exam Cardiovascular Exam: Tachycardia, REGULAR RHYTHM - GI/Abdominal Exam GI & Abdominal Exam: Soft. absent: Distended, Firm Additional comments: dressing CDI w/ Chencho drain in LUQ w/ serousanguineous fluid output - Extremities Exam Extremities Exam: Normal Inspection. absent: Pedal Edema, Tenderness - Neurological Exam Neurological Exam: Altered, Awake. absent: Oriented x3 - Psychiatric Exam Psychiatric exam: Agitated - Skin Skin Exam: Dry, Intact, Normal Color, Warm Assessment and Plan - Assessment and Plan (Free Text) Assessment: 71 y/o female s/p ex lap with drainage intraabdominal abscess POD1, subsequently requiring intubation due to respiratory failure Plan: -monitor abdominal drain output -leave dressing in place and reinforce prn -daily labs -cont abx -f/u abdominal abscess fluid culture -continue medical management as per ICU team -further recs per Dr. Ryann Warner PGY1
--- NOTE | 2016-11-26 10:35 | CP.PCM.PN ---
Subjective - Date & Time of Evaluation Date of Evaluation: 11/26/16 Time of Evaluation: 09:00 - Subjective Subjective: This is a 71 yo [place] F with PMH of ESRD and HTN that was in hypercapneic respiratory failure s/p exploratory laparotomy w/ drainage of intra-abdominal abscess, secondary to over-sedation vs sepsis. Pt is intubated but alert and off of pressor support Objective - Vital Signs/Intake and Output Vital Signs (last 24 hours): Temp Pulse Resp BP Pulse Ox 97.9 F 107 H 15 163/87 H 100 11/26/16 08:00 11/26/16 09:00 11/26/16 09:00 11/26/16 08:52 11/26/16 09:00 Intake and Output: 11/26/16 11/26/16 06:59 18:59 Intake Total 1165.8 258.3 Output Total 40 Balance 1125.8 258.3 - Medications Medications: Current Medications Acetaminophen (Tylenol 325mg Tab) 650 mg PO Q6 PRN PRN Reason: temp > 99.5 Last Admin: 11/23/16 18:44 Dose: 650 mg Albuterol/Ipratropium (Duoneb 3 Mg/0.5 Mg (3 Ml) Ud) 3 ml INH RQ4 [facility] Last Admin: 11/26/16 08:43 Dose: 3 ml Epoetin Mik (Procrit) 10,000 unit IV [facility] Last Admin: 11/25/16 09:14 Dose: Not Given Famotidine (Pepcid) 20 mg IVP DAILY [facility] Last Admin: 11/26/16 09:28 Dose: 20 mg Folic Acid (Folic Acid) 1 mg PO DAILY [facility] Last Admin: 11/26/16 09:28 Dose: Not Given Gentamicin Sulfate/Sodium Chloride (Gentamicin Iv 80 Mg Premix) 80 mg in 100 mls @ 100 mls/hr IVPB [facility] Last Admin: 11/25/16 10:00 Dose: 100 mls/hr Cefepime HCl (Maxipime Iv 1 Gm Premix) 1 gm in 50 mls @ 100 mls/hr IVPB Q24H [facility] Last Admin: 11/25/16 22:43 Dose: 100 mls/hr Vancomycin HCl 1,000 mg/ (Sodium Chloride) 250 mls @ 166.6 mls/hr IVPB [facility] Last Admin: 11/25/16 11:00 Dose: 166.6 mls/hr Dopamine HCl/Dextrose (Dopamine 400mg/250ml D5w) 400 mg in 250 mls @ 4.81 mls/ hr IV .Q24H PRN; Protocol; 2 MCG/KG/MIN PRN Reason: TITRATE PER MD ORDER Last Titration: 11/26/16 03:00 Dose: 2 mcg/kg/min, 4.81 mls/hr Sodium Chloride (Sodium Chloride 0.9%) 1,000 mls @ 75 mls/hr IV .[id number] [facility] Last Admin: 11/26/16 08:35 Dose: Not Given Fentanyl Citrate 2,500 mcg/ (Sodium Chloride) 250 mls @ 63.36 mls/hr IV .[id number] [facility]; 10 MCG/KG/HR PRN Reason: Protocol Last Titration: 11/26/16 08:00 Dose: 1 mcg/kg/hr, 6.33 mls/hr Propofol (Diprivan) 1,000 mg in 100 mls @ 1.901 mls/hr IV .Q24H PRN; Protocol; 5 MCG/KG/MIN PRN Reason: Agitation Last Titration: 11/26/16 03:32 Dose: 20 mcg/kg/min, 7.604 mls/hr Lactobacillus Acidophilus (Bacid Acidophilus) 1 cap PO BID [facility] Last Admin: 11/25/16 19:25 Dose: Not Given Losartan Potassium (Cozaar) 100 mg PO DAILY [facility] Last Admin: 11/25/16 10:55 Dose: 100 mg Nitroglycerin (Nitrostat Sl Tab) 0.4 mg SL Q15M PRN PRN Reason: chest pain - Labs Labs: 11/26/16 06:04 11/26/16 06:04 PT 12.3 SECONDS (9.7-12.2) H 11/25/16 06:20 INR 1.1 11/25/16 06:20 APTT 42 SECONDS (21-34) H 11/25/16 06:20 - Constitutional Appears: Toxic, Cachectic, Chronically Ill - Head Exam Head Exam: NORMOCEPHALIC - Eye Exam Eye Exam: absent: Scleral icterus - ENT Exam ENT Exam: Mucous Membranes Dry - Neck Exam Neck Exam: absent: Lymphadenopathy - Respiratory Exam Respiratory Exam: Decreased Breath Sounds, Rhonchi - Cardiovascular Exam Cardiovascular Exam: Tachycardia, REGULAR RHYTHM, +S1, +S2 - GI/Abdominal Exam GI & Abdominal Exam: Distended, Tenderness, Diminished Bowel Sounds - Rectal Exam Rectal Exam: Deferred - Extremities Exam Extremities Exam: absent: Pedal Edema - Back Exam Back Exam: absent: CVA tenderness (L), CVA tenderness (R) - Neurological Exam Neurological Exam: Alert, Awake, CN II-XII Intact - Psychiatric Exam Psychiatric exam: Depressed - Skin Skin Exam: Dry Assessment and Plan (1) ESRD (end stage renal disease) Status: Chronic (2) Intra-abdominal abscess Status: Acute - Assessment and Plan (Free Text) Assessment: s/p OR drainage abscess abdomen await OR cultures cont IV antibiotics and wound care
--- NOTE | 2016-11-26 10:40 | CP.PCM.PN ---
Subjective - Date & Time of Evaluation Date of Evaluation: 11/26/16 Time of Evaluation: 10:37 - Subjective Subjective: events noted hypercapneic respiratory failure and hypotension post surgery. improved pt awake and responsive, off pressor. emergently dialyzed last night for hyperkalemia Objective - Vital Signs/Intake and Output Vital Signs (last 24 hours): Temp Pulse Resp BP Pulse Ox 97.9 F 107 H 15 163/87 H 100 11/26/16 08:00 11/26/16 09:00 11/26/16 09:00 11/26/16 08:52 11/26/16 09:00 Intake and Output: 11/26/16 11/26/16 06:59 18:59 Intake Total 1165.8 258.3 Output Total 40 Balance 1125.8 258.3 - Medications Medications: Current Medications Acetaminophen (Tylenol 325mg Tab) 650 mg PO Q6 PRN PRN Reason: temp > 99.5 Last Admin: 11/23/16 18:44 Dose: 650 mg Albuterol/Ipratropium (Duoneb 3 Mg/0.5 Mg (3 Ml) Ud) 3 ml INH RQ4 [facility] [place] Last Admin: 11/26/16 08:43 Dose: 3 ml Epoetin Mik (Procrit) 10,000 unit IV [facility] Last Admin: 11/25/16 09:14 Dose: Not Given Famotidine (Pepcid) 20 mg IVP DAILY [facility] [place] Last Admin: 11/26/16 09:28 Dose: 20 mg Folic Acid (Folic Acid) 1 mg PO DAILY [facility] [place] Last Admin: 11/26/16 09:28 Dose: Not Given Gentamicin Sulfate/Sodium Chloride (Gentamicin Iv 80 Mg Premix) 80 mg in 100 mls @ 100 mls/hr IVPB [facility] Last Admin: 11/25/16 10:00 Dose: 100 mls/hr Cefepime HCl (Maxipime Iv 1 Gm Premix) 1 gm in 50 mls @ 100 mls/hr IVPB Q24H [facility] [place] Last Admin: 11/25/16 22:43 Dose: 100 mls/hr Vancomycin HCl 1,000 mg/ (Sodium Chloride) 250 mls @ 166.6 mls/hr IVPB [facility] Last Admin: 11/25/16 11:00 Dose: 166.6 mls/hr Dopamine HCl/Dextrose (Dopamine 400mg/250ml D5w) 400 mg in 250 mls @ 4.81 mls/ hr IV .Q24H PRN; Protocol; 2 MCG/KG/MIN PRN Reason: TITRATE PER MD ORDER Last Titration: 11/26/16 03:00 Dose: 2 mcg/kg/min, 4.81 mls/hr Sodium Chloride (Sodium Chloride 0.9%) 1,000 mls @ 75 mls/hr IV .[id number] [facility] [place] Last Admin: 11/26/16 08:35 Dose: Not Given Fentanyl Citrate 2,500 mcg/ (Sodium Chloride) 250 mls @ 63.36 mls/hr IV .[id number] MARYLOU; 10 MCG/KG/HR PRN Reason: Protocol Last Titration: 11/26/16 08:00 Dose: 1 mcg/kg/hr, 6.33 mls/hr Propofol (Diprivan) 1,000 mg in 100 mls @ 1.901 mls/hr IV .Q24H PRN; Protocol; 5 MCG/KG/MIN PRN Reason: Agitation Last Titration: 11/26/16 03:32 Dose: 20 mcg/kg/min, 7.604 mls/hr Lactobacillus Acidophilus (Bacid Acidophilus) 1 cap PO BID [facility] [place] Last Admin: 11/25/16 19:25 Dose: Not Given Losartan Potassium (Cozaar) 100 mg PO DAILY [facility] [place] Last Admin: 11/25/16 10:55 Dose: 100 mg Nitroglycerin (Nitrostat Sl Tab) 0.4 mg SL Q15M PRN PRN Reason: chest pain - Labs Labs: 11/26/16 06:04 11/26/16 06:04 PT 12.3 SECONDS (9.7-12.2) H 11/25/16 06:20 INR 1.1 11/25/16 06:20 APTT 42 SECONDS (21-34) H 11/25/16 06:20 - Constitutional Appears: No Acute Distress (intubated) - Head Exam Head Exam: NORMAL INSPECTION - Eye Exam Eye Exam: Normal appearance - ENT Exam Additional comments: ET tube - Neck Exam Neck Exam: Normal Inspection - Respiratory Exam Additional comments: coarse mechanical breath sounds b/l - Cardiovascular Exam Cardiovascular Exam: REGULAR RHYTHM, RRR - GI/Abdominal Exam GI & Abdominal Exam: Distended, Soft Additional comments: dressing in place - Extremities Exam Extremities Exam: Normal Inspection Assessment and Plan (1) Hypertension Status: Acute (2) ESRD (end stage renal disease) Status: Chronic (3) Type 2 diabetes mellitus with diabetic nephropathy Status: Acute (4) Anemia of chronic disease Status: Chronic (5) Intra-abdominal abscess Status: Acute - Assessment and Plan (Free Text) Assessment: HD tomorrow hyperkalemia improved antibiotics wean per icu team
[2016-11-26] MEDS: Cefepime IV 1 gm in Dextrose 1 GM/50 ML BAG IVPB SCH (17:32)
--- NOTE | 2016-11-26 20:15 | CP.PCM.PN ---
Subjective - Date & Time of Evaluation Date of Evaluation: 11/26/16 Time of Evaluation: 20:12 - Subjective Subjective: Reviewed events of the day, pt extubated today and tolerating O2 by NC. Pt still confused and slightly confused, sleeping a lot. Prelim GS from Microiology showed no organisms. WBC normalized overnight, could have been stress induced from surgery and intubation. Possible transfer to the floor if pt continues to do well. Will restart with pt and family re: transfer out of ICU when able). Objective - Vital Signs/Intake and Output Vital Signs (last 24 hours): Temp Pulse Resp BP Pulse Ox 98 F 78 16 108/72 100 11/26/16 16:00 11/26/16 20:00 11/26/16 20:00 11/26/16 19:53 11/26/16 20:00 Intake and Output: 11/26/16 11/27/16 18:59 06:59 Intake Total 528.3 50 Output Total 40 Balance 488.3 50 - Medications Medications: Current Medications Acetaminophen (Tylenol 325mg Tab) 650 mg PO Q6 PRN PRN Reason: temp > 99.5 Last Admin: 11/23/16 18:44 Dose: 650 mg Albuterol/Ipratropium (Duoneb 3 Mg/0.5 Mg (3 Ml) Ud) 3 ml INH RQ4 [facility] Last Admin: 11/26/16 20:08 Dose: 3 ml Epoetin Mik (Procrit) [facility] Last Admin: 11/25/16 09:14 Dose: Not Given Famotidine (Pepcid) 20 mg IVP DAILY [facility] Last Admin: 11/26/16 09:28 Dose: 20 mg Folic Acid (Folic Acid) 1 mg PO DAILY [facility] Last Admin: 11/26/16 09:28 Dose: Not Given Gentamicin Sulfate/Sodium Chloride (Gentamicin Iv 80 Mg Premix) 80 mg in 100 mls @ 100 mls/hr IVPB MWF [facility] Last Admin: 11/25/16 10:00 Dose: 100 mls/hr Cefepime HCl (Maxipime Iv 1 Gm Premix) 1 gm in 50 mls @ 100 mls/hr IVPB Q24H [facility] Last Admin: 11/26/16 17:32 Dose: 100 mls/hr Vancomycin HCl 1,000 mg/ (Sodium Chloride) 250 mls @ 166.6 mls/hr IVPB MWF [facility] Last Admin: 11/25/16 11:00 Dose: 166.6 mls/hr Dopamine HCl/Dextrose (Dopamine 400mg/250ml D5w) 400 mg in 250 mls @ 4.81 mls/ hr IV .Q24H PRN; Protocol; 2 MCG/KG/MIN PRN Reason: TITRATE PER MD ORDER Last Titration: 11/26/16 03:00 Dose: 2 mcg/kg/min, 4.81 mls/hr Lactobacillus Acidophilus (Bacid Acidophilus) 1 cap PO BID [facility] Last Admin: 11/26/16 17:35 Dose: 1 cap Losartan Potassium (Cozaar) 100 mg PO DAILY [facility] Last Admin: 11/26/16 10:00 Dose: Not Given Nitroglycerin (Nitrostat Sl Tab) 0.4 mg SL Q15M PRN PRN Reason: chest pain - Labs Labs: 11/26/16 06:04 11/26/16 06:04 PT 12.3 SECONDS (9.7-12.2) H 11/25/16 06:20 INR 1.1 11/25/16 06:20 APTT 42 SECONDS (21-34) H 11/25/16 06:20 - Constitutional Appears: No Acute Distress, Chronically Ill - Head Exam Head Exam: ATRAUMATIC, NORMAL INSPECTION, NORMOCEPHALIC - Eye Exam Eye Exam: EOMI, Normal appearance Pupil Exam: NORMAL ACCOMODATION - ENT Exam ENT Exam: Mucous Membranes Moist, Normal Exam - Neck Exam Neck Exam: Normal Inspection - Respiratory Exam Respiratory Exam: Decreased Breath Sounds, Clear to Ausculation Bilateral - Cardiovascular Exam Cardiovascular Exam: Tachycardia, REGULAR RHYTHM - GI/Abdominal Exam GI & Abdominal Exam: Hyperactive Bowel Sounds - Rectal Exam Rectal Exam: Deferred - Extremities Exam Extremities Exam: Pedal Edema Additional comments: very mild - Back Exam Back Exam: NORMAL INSPECTION - Neurological Exam Neurological Exam: Altered, Awake (awakens) Neuro motor strength exam: Left Upper Extremity: 0, Right Upper Extremity: 3, Right Lower Extremity: 3 - Psychiatric Exam Psychiatric exam: Normal Affect, Normal Mood - Skin Skin Exam: Dry, Erythema, Intact Assessment and Plan (1) Respiratory failure Assessment & Plan: extubated Status: Resolved (2) Intra-abdominal abscess Assessment & Plan: successful explore lap Status: Acute (3) Anemia of chronic disease Assessment & Plan: monitor CBC in AM and possible transfusion Status: Chronic (4) ESRD (end stage renal disease) Assessment & Plan: on HD Status: Chronic (5) Generalized weakness Assessment & Plan: monitor if abscess gone and resume PT when out of ICU Status: Acute
[2016-11-27] MEDS: Albuterol-Ipratrop 3 mg / 0.5 (3 ml) UD INH SCH ×8 (00:05→23:49)
[2016-11-27 06:11] LABS: BASO % 0.2 % (0.0-2.0); EOS % 0.2 % (0.0-4.0); HEMATOCRIT 27.4 % (34.0-47.0); LYMPH # 1.1 K/uL (1.0-4.3); LYMPH % 8.1 % (20.0-40.0); MEAN CELL VOLUME 88.7 fL (81.0-99.0); MEAN CORPUSCULAR HEMOGLOBIN 27.8 pg (27.0-31.0); MEAN CORPUSCULAR HGB CONC 31.3 g/dL (33.0-37.0); MEAN PLATELET VOLUME 8.7 fL (7.2-11.7); MONO # 0.8 K/uL (0.0-0.8); MONO % 6.3 % (0.0-10.0); PLATELET COUNT 220 K/uL (130-400); RED CELL DISTRIBUTION WIDTH 15.4 % (11.5-14.5); WHITE BLOOD COUNT 12.9 K/uL (4.8-10.8)
[2016-11-27 06:52] LABS: POTASSIUM 4.1 mmol/L (3.6-5.2)
[2016-11-27 06:54] LABS: ALB/GLOB RATIO 0.6 (1.0-2.1); BILIRUBIN,TOTAL 0.7 mg/dL (0.2-1.3); PHOSPHOROUS 8.5 mg/dL (2.5-4.5); TOTAL PROTEIN 7.7 g/dL (6.3-8.3)
[2016-11-27 06:55] LABS: CALCIUM 9.4 mg/dl (8.6-10.4)
[2016-11-27 08:19] LABS: NEUTROPHIL 87 % (50-75); TOTAL CELLS COUNTED 100
[2016-11-27 08:20] LABS: LARGE PLATELETS PRESENT
--- NOTE | 2016-11-27 09:18 | CP.PCM.PN ---
Subjective - Date & Time of Evaluation Date of Evaluation: 11/27/16 Time of Evaluation: 09:16 - Subjective Subjective: PGY1 Progress note for Dr. Garzon: Patient seen and examined. Patient extubated yesterday, currently on nasal canula. Patient awake and alert. Patient denies abdominal pain. Patient reports having panic attack overnight; patient was given haldol 5mg. Objective - Vital Signs/Intake and Output Vital Signs (last 24 hours): Temp Pulse Resp BP Pulse Ox 97.8 F 105 H 22 159/79 H 100 11/27/16 04:00 11/27/16 06:00 11/27/16 06:00 11/27/16 03:52 11/27/16 06:00 Intake and Output: 11/27/16 11/27/16 06:59 18:59 Intake Total 150 Output Total 30 Balance 120 - Medications Medications: Current Medications Acetaminophen (Tylenol 325mg Tab) 650 mg PO Q6 PRN PRN Reason: temp > 99.5 Last Admin: 11/23/16 18:44 Dose: 650 mg Albuterol/Ipratropium (Duoneb 3 Mg/0.5 Mg (3 Ml) Ud) 3 ml INH RQ4 [facility] Last Admin: 11/27/16 07:56 Dose: 3 ml Alprazolam (Xanax) 0.25 mg PO BID PRN PRN Reason: Anxiety Stop: 12/04/16 09:15 Epoetin Mik (Procrit) 10,000 unit IV [facility] Last Admin: 11/25/16 09:14 Dose: Not Given Famotidine (Pepcid) 20 mg PO DAILY [facility] Folic Acid (Folic Acid) 1 mg PO DAILY [facility] Last Admin: 11/26/16 09:28 Dose: Not Given Gentamicin Sulfate/Sodium Chloride (Gentamicin Iv 80 Mg Premix) 80 mg in 100 mls @ 100 mls/hr IVPB [facility] [place] Last Admin: 11/25/16 10:00 Dose: 100 mls/hr Cefepime HCl (Maxipime Iv 1 Gm Premix) 1 gm in 50 mls @ 100 mls/hr IVPB Q24H [facility] Last Admin: 11/26/16 17:32 Dose: 100 mls/hr Vancomycin HCl 1,000 mg/ (Sodium Chloride) 250 mls @ 166.6 mls/hr IVPB [facility] [place] Last Admin: 11/25/16 11:00 Dose: 166.6 mls/hr Dopamine HCl/Dextrose (Dopamine 400mg/250ml D5w) 400 mg in 250 mls @ 4.81 mls/ hr IV .Q24H PRN; Protocol; 2 MCG/KG/MIN PRN Reason: TITRATE PER MD ORDER Last Titration: 11/26/16 03:00 Dose: 2 mcg/kg/min, 4.81 mls/hr Lactobacillus Acidophilus (Bacid Acidophilus) 1 cap PO BID [facility] Last Admin: 11/26/16 17:35 Dose: 1 cap Losartan Potassium (Cozaar) 100 mg PO DAILY [facility] Last Admin: 11/26/16 10:00 Dose: Not Given Nitroglycerin (Nitrostat Sl Tab) 0.4 mg SL Q15M PRN PRN Reason: chest pain - Labs Labs: 11/27/16 06:08 11/27/16 06:05 PT 12.3 SECONDS (9.7-12.2) H 11/25/16 06:20 INR 1.1 11/25/16 06:20 APTT 42 SECONDS (21-34) H 11/25/16 06:20 - Constitutional Appears: No Acute Distress - Head Exam Head Exam: ATRAUMATIC, NORMOCEPHALIC - Eye Exam Eye Exam: EOMI - GI/Abdominal Exam GI & Abdominal Exam: Soft Additional comments: dressing clean/ dry/ intact. [place] drain with seropurulent fluid - Neurological Exam Neurological Exam: Alert, Awake - Psychiatric Exam Psychiatric exam: Normal Affect - Skin Skin Exam: Warm Assessment and Plan - Assessment and Plan (Free Text) Assessment: 71 y/o female s/p ex lap with drainage intraabdominal abscess POD #2, subsequently requiring intubation due to respiratory failure- currently extubated -monitor abdominal drain output -leave dressing in place and reinforce prn -daily labs- WBC increased from 10.6 to 12.9 -cont abx per ID -abdominal abscess fluid culture light growth gram positive cocci -continue medical management as per ICU team -further recs per Dr. Garzon LRosenblum PGY1
[2016-11-27] MEDS: Lactobacillus Acidophilus 500 MU Cap PO SCH ×2 (09:19→17:55)
--- NOTE | 2016-11-27 10:05 | RAD ---
HISTORY: sob COMPARISON: Comparison is made to 11/26/2016 FINDINGS: LUNGS: Interval mild worsening of pulmonary vascular congestion since the previous exam. Patient status post extubation since the previous study. PLEURA: Right pleural effusion is again seen. There is a blunting of the left costophrenic angle suggestive of small left pleural effusion. CARDIOVASCULAR: Normal. OSSEOUS STRUCTURES: No significant abnormalities. VISUALIZED UPPER ABDOMEN: Normal. OTHER FINDINGS: Right-sided hemodialysis catheter is seen in place. IMPRESSION: Interval mild worsening of pulmonary vascular congestion since the previous exam. Small bilateral pleural effusions.
[2016-11-27] MEDS: Epoetin Alfa 10,000 unit/ml Dialysis IV SCH (10:29)
--- NOTE | 2016-11-27 10:29 | CP.CCUPN ---
<Dale Richardson - Last Filed: 11/27/16 10:47> CCU Subjective - Physician Review Subjective (Free Text): 11/27/16 10:22 PGY-1 progress note Pt seen and examined at bedside. Overnight pt reportedly had a panic attack for which she was given Haldol. Pt has episodes of anxiety where she states that she has trouble breathing but maintains adequate saturations. She denies any other complaints. Denies fevers, chills, chest pain, sob, nausea or vomiting. Critical Care Time Spent (in minutes): 35 CCU Objective - Vital Signs / Intake & Output Vital Signs (Last 4 hours): Vital Signs Temp Pulse Pulse Resp BP BP Pulse Ox 11/27/16 10:10 157/86 H 11/27/16 09:55 146/86 11/27/16 09:43 118 H 15 154/92 H 95 11/27/16 09:40 154/92 H 11/27/16 09:29 103 H 18 153/82 H 100 11/27/16 09:28 104 H 19 157/89 H 100 11/27/16 09:25 97.7 F 103 H 103 H 20 157/89 H 153/82 H 100 11/27/16 09:00 106 H 14 100 11/27/16 08:34 128 H 25 H 164/102 H 96 11/27/16 08:00 98.2 F 94 H 14 100 11/27/16 07:00 92 H 15 100 Intake and Output (Last 8hrs): Intake & Output 11/26/16 11/27/16 11/27/16 22:59 06:59 14:59 Intake Total 320 100 150 Output Total 40 30 Balance 280 70 150 Weight 146 lb 1 oz Intake: Intake, IV Amount 100 L PICC 100 Oral 220 100 150 Output: Drainage 40 30 Lower Abdomen 40 30 Urine 0 0 Urine, Voided 0 0 - Physical Exam Head: Positive for: Atraumatic, Normocephalic Pupils: Positive for: PERRL Extroacular Muscles: Positive for: EOMI Mouth: Positive for: Moist Mucous Membranes Respiratory/Chest: Positive for: Good Air Exchange, Rales. Negative for: Accessory Muscle Use Cardiovascular: Positive for: Normal S1, S2 Abdomen: Positive for: Normal Bowel Sounds. Negative for: Tenderness, Distention Upper Extremity: Positive for: NORMAL PULSES, Neurovascularly Intact Lower Extremity: Positive for: NORMAL PULSES, Neurovascularly Intact Neurological: Positive for: Motor Func Grossly Intact Skin: Positive for: Warm, Dry Psychiatric: Positive for: Alert, Oriented x 3 - Medications Active Medications: Active Medications Generic Name Dose Route Start Last Admin Trade Name Freq PRN Reason Stop Dose Admin Acetaminophen 650 mg 11/11/16 19:17 11/23/16 18:44 Tylenol 325mg Tab PO 650 mg Q6 PRN Administration temp > 99.5 Albuterol/Ipratropium 3 ml 11/23/16 16:00 11/27/16 07:56 Duoneb 3 Mg/0.5 Mg (3 Ml) Ud INH 3 ml RQ4 MARYLOU Administration Alprazolam 0.25 mg 11/27/16 09:14 Xanax PO 12/04/16 09:15 BID PRN Anxiety Epoetin Mik 10,000 unit 11/13/16 09:00 11/25/16 09:14 Procrit IV Not Given MWF [facility] Famotidine 20 mg 11/27/16 10:00 11/27/16 09:18 Pepcid PO 20 mg DAILY MARYLOU Administration Folic Acid 1 mg 11/19/16 10:00 11/27/16 09:18 Folic Acid PO 1 mg DAILY MARYLOU Administration Gentamicin Sulfate/Sodium Chloride 80 mg in 100 mls @ 100 mls/hr 11/13/16 09: 00 11/25/16 10:00 Gentamicin Iv 80 Mg Premix IVPB 100 mls/hr MWF MARYLOU Administration Cefepime HCl 1 gm in 50 mls @ 100 mls/hr 11/17/16 18:00 11/26/16 17:32 Maxipime Iv 1 Gm Premix IVPB 100 mls/hr Q24H MARYLOU Administration Vancomycin HCl 1,000 mg/ 250 mls @ 166.6 mls/hr 11/25/16 09:00 11/25/16 11:00 Sodium Chloride IVPB 166.6 mls/hr MWF MARYLOU Administration Dopamine HCl/Dextrose 400 mg in 250 mls @ 4.81 mls/hr 11/25/16 15:03 03:00 Dopamine 400mg/250ml D5w IV 2 mcg/kg/min .Q24H PRN 4.81 mls/hr TITRATE PER MD ORDER Titration Protocol 2 MCG/KG/MIN Lactobacillus Acidophilus 1 cap 04/29/17 18:00 11/27/16 09:19 Bacid Acidophilus PO 1 cap BID MARYLOU Administration Losartan Potassium 100 mg 11/22/16 12:30 11/27/16 09:19 Cozaar PO 100 mg DAILY MARYLOU Administration Nitroglycerin 0.4 mg 11/12/16 18:57 Nitrostat Sl Tab SL Q15M PRN chest pain - Patient Studies Lab Studies: Microbiology Studies 11/25/16 15:00 Gram Stain - Final Abdomen Wound Culture - Preliminary Gram Positive Cocci 11/23/16 19:00 Gram Stain - Final Abdomen Wound Culture - Final Enterococcus Faecium Lab Studies 11/27/16 11/27/16 11/27/16 Range/Units 07:20 06:08 06:05 WBC 12.9 H (4.8-10.8) K/uL RBC 3.09 L (3.80-5.20) Mil/uL Hgb 8.6 L (11.0-16.0) g/dL Hct 27.4 L (34.0-47.0) % MCV 88.7 (81.0-99.0) fL MCH 27.8 (27.0-31.0) pg MCHC 31.3 L (33.0-37.0) g/dL RDW 15.4 H (11.5-14.5) % Plt Count 220 (130-400) K/uL MPV 8.7 (7.2-11.7) fL Neut % (Auto) 85.2 H (50.0-75.0) % Lymph % (Auto) 8.1 L (20.0-40.0) % Mccone % (Auto) 6.3 (0.0-10.0) % Eos % (Auto) 0.2 (0.0-4.0) % Baso % (Auto) 0.2 (0.0-2.0) % Neut # 11.0 H (1.8-7.0) K/uL Lymph # 1.1 (1.0-4.3) K/uL Mccone # 0.8 (0.0-0.8) K/uL Eos # 0.0 (0.0-0.7) K/uL Baso # 0.0 (0.0-0.2) K/uL Neutrophils % (Manual) 87 H (50-75) % Lymphocytes % (Manual) 4 L (20-40) % Monocytes % (Manual) 9 (0-10) % Platelet Estimate Normal (NORMAL) Large Platelets Present Hypochromasia (manual) Slight Poikilocytosis (manual Slight Anisocytosis (manual) Slight Microcytosis (manual) Slight Macrocytosis (manual) Slight Target Cells Slight Ovalocytes Slight Sodium 132 (132-148) mmol/L Potassium 4.1 (3.6-5.2) mmol/L Chloride 96 L (98-107) mmol/L Carbon Dioxide 23 (22-30) mmol/L Anion Gap 17 (10-20) BUN 44 H (7-17) mg/dL Creatinine 4.7 H (0.7-1.2) MG/DL Est GFR ( Amer) 11 Est GFR (Non-Af Amer) 9 POC Glucose (mg/dL) 158 H (65-110) mg/dL Random Glucose 130 H (65-105) mg/dL Calcium 9.4 (8.6-10.4) mg/dl Phosphorus 8.5 H (2.5-4.5) mg/dL Magnesium 2.0 (1.6-2.3) mg/dL Total Bilirubin 0.7 (0.2-1.3) mg/dL AST 34 (14-36) U/L ALT 28 (9-52) U/L Alkaline Phosphatase 124 (38-126) U/L Total Protein 7.7 (6.3-8.3) g/dL Albumin 2.7 L (3.5-5.0) g/dL Globulin 4.9 H (2.2-3.9) gm/dL Albumin/Globulin Ratio 0.6 L (1.0-2.1) 11/26/16 11/26/16 Range/Units 17:55 12:02 WBC (4.8-10.8) K/uL RBC (3.80-5.20) Mil/uL Hgb (11.0-16.0) g/dL Hct (34.0-47.0) % MCV (81.0-99.0) fL MCH (27.0-31.0) pg MCHC (33.0-37.0) g/dL RDW (11.5-14.5) % Plt Count (130-400) K/uL MPV (7.2-11.7) fL Neut % (Auto) (50.0-75.0) % Lymph % (Auto) (20.0-40.0) % Mccone % (Auto) (0.0-10.0) % Eos % (Auto) (0.0-4.0) % Baso % (Auto) (0.0-2.0) % Neut # (1.8-7.0) K/uL Lymph # (1.0-4.3) K/uL Mccone # (0.0-0.8) K/uL Eos # (0.0-0.7) K/uL Baso # (0.0-0.2) K/uL Neutrophils % (Manual) (50-75) % Lymphocytes % (Manual) (20-40) % Monocytes % (Manual) (0-10) % Platelet Estimate (NORMAL) Large Platelets Hypochromasia (manual) Poikilocytosis (manual Anisocytosis (manual) Microcytosis (manual) Macrocytosis (manual) Target Cells Ovalocytes Sodium (132-148) mmol/L Potassium (3.6-5.2) mmol/L Chloride (98-107) mmol/L Carbon Dioxide (22-30) mmol/L Anion Gap (10-20) BUN (7-17) mg/dL Creatinine (0.7-1.2) MG/DL Est GFR ( Amer) Est GFR (Non-Af Amer) POC Glucose (mg/dL) 189 H 175 H (65-110) mg/dL Random Glucose (65-105) mg/dL Calcium (8.6-10.4) mg/dl Phosphorus (2.5-4.5) mg/dL Magnesium (1.6-2.3) mg/dL Total Bilirubin (0.2-1.3) mg/dL AST (14-36) U/L ALT (9-52) U/L Alkaline Phosphatase (38-126) U/L Total Protein (6.3-8.3) g/dL Albumin (3.5-5.0) g/dL Globulin (2.2-3.9) gm/dL Albumin/Globulin Ratio (1.0-2.1) Laboratory Results - last 24 hr 11/26/16 11/26/16 11/27/16 12:02 17:55 06:05 WBC RBC Hgb Hct MCV MCH MCHC RDW Plt Count MPV Neut % (Auto) Lymph % (Auto) Mccone % (Auto) Eos % (Auto) Baso % (Auto) Neut # Lymph # Mccone # Eos # Baso # Neutrophils % (Manual) Lymphocytes % (Manual) Monocytes % (Manual) Platelet Estimate Large Platelets Hypochromasia (manual) Poikilocytosis (manual Anisocytosis (manual) Microcytosis (manual) Macrocytosis (manual) Target Cells Ovalocytes Sodium 132 Potassium 4.1 Chloride 96 L Carbon Dioxide 23 Anion Gap 17 BUN 44 H Creatinine 4.7 H Est GFR ( Amer) 11 Est GFR (Non-Af Amer) 9 POC Glucose (mg/dL) 175 H 189 H Random Glucose 130 H Calcium 9.4 Phosphorus 8.5 H Magnesium 2.0 Total Bilirubin 0.7 AST 34 ALT 28 Alkaline Phosphatase 124 Total Protein 7.7 Albumin 2.7 L Globulin 4.9 H Albumin/Globulin Ratio 0.6 L 11/27/16 11/27/16 06:08 07:20 WBC 12.9 H RBC 3.09 L Hgb 8.6 L Hct 27.4 L MCV 88.7 MCH 27.8 MCHC 31.3 L RDW 15.4 H Plt Count 220 MPV 8.7 Neut % (Auto) 85.2 H Lymph % (Auto) 8.1 L Mccone % (Auto) 6.3 Eos % (Auto) 0.2 Baso % (Auto) 0.2 Neut # 11.0 H Lymph # 1.1 Mccone # 0.8 Eos # 0.0 Baso # 0.0 Neutrophils % (Manual) 87 H Lymphocytes % (Manual) 4 L Monocytes % (Manual) 9 Platelet Estimate Normal Large Platelets Present Hypochromasia (manual) Slight Poikilocytosis (manual Slight Anisocytosis (manual) Slight Microcytosis (manual) Slight Macrocytosis (manual) Slight Target Cells Slight Ovalocytes Slight Sodium Potassium Chloride Carbon Dioxide Anion Gap BUN Creatinine Est GFR ( Amer) Est GFR (Non-Af Amer) POC Glucose (mg/dL) 158 H Random Glucose Calcium Phosphorus Magnesium Total Bilirubin AST ALT Alkaline Phosphatase Total Protein Albumin Globulin Albumin/Globulin Ratio Fingerstick Blood Sugar Results: 158 Review of Systems - Review of Systems All systems: reviewed and no additional remarkable complaints except (where noted in HPI) Critical Care Progress Note - Nutrition Nutrition: Nutrition Category Date Time Status Liquid Diet [DIET] Diets 11/26/16 Dinner Active Assessment/Plan - Assessment and Plan (Free Text) Assessment: This is a 71 yo [place] Citizen F with PMH of ESRD and HTN that was in hypercapneic respiratory failure s/p exploratory laparotomy w/ drainage of intra-abdominal abscess, secondary to over-sedation vs sepsis. Pt successfully intubated yesterday. Plan: Neuro: No acute issues. AAOx3. Pulm: Extubated. Saturating well. No respiratory distress. CV: Stable. Continue to monitor GI: Renal diet. No acute issues Renal: ESRD on HD. Nephro following, HD today. Will continue to monitor. Heme: Hgb stable s/p transfusions. Continue to monitor and transfuse as necessary. ID: ID following. Continue IV abx Endo: No acute issues, Psych: Anxious, started on Xanax DVT proph - Heparin GI proph - Pepcid Anaya for strict I/O's during acute illness Code status - full code <Liang Correa S - Last Filed: 11/27/16 16:04> CCU Objective - Vital Signs / Intake & Output Vital Signs (Last 4 hours): Vital Signs Temp Pulse Pulse Resp BP BP Pulse Ox 11/27/16 14:00 114 H 14 100 11/27/16 13:00 127 H 93 L 11/27/16 12:34 119 H 20 165/89 H 100 11/27/16 12:28 167/87 H 11/27/16 12:25 97.9 F 108 H 17 163/93 H 100 11/27/16 12:13 108 H 18 163/93 H 100 Intake and Output (Last 8hrs): Intake & Output 11/27/16 11/27/16 11/27/16 06:59 14:59 22:59 Intake Total 100 300 Output Total 30 0 Balance 70 300 Weight 146 lb 1 oz Intake: Intake, IV Amount 100 L PICC 100 Oral 100 200 Output: Drainage 30 Lower Abdomen 30 Urine 0 0 Urine, Voided 0 0 - Medications Active Medications: Active Medications Generic Name Dose Route Start Last Admin Trade Name Freq PRN Reason Stop Dose Admin Acetaminophen 650 mg 11/11/16 19:17 11/23/16 18:44 Tylenol 325mg Tab PO 650 mg Q6 PRN Administration temp > 99.5 Albuterol/Ipratropium 3 ml 11/23/16 16:00 11/27/16 11:43 Duoneb 3 Mg/0.5 Mg (3 Ml) Ud INH 3 ml RQ4 MARYLOU Administration Alprazolam 0.25 mg 11/27/16 09:14 Xanax PO 12/04/16 09:15 BID PRN Anxiety Calcium Acetate 667 mg 11/27/16 17:00 Phoslo PO TIDCC [facility] Epoetin Mik 10,000 unit 11/13/16 09:00 11/27/16 10:29 Procrit IV 10,000 unit [facility] [place] Famotidine 20 mg 11/27/16 10:00 11/27/16 09:18 Pepcid PO 20 mg DAILY MARYLOU Administration Folic Acid 1 mg 11/19/16 10:00 11/27/16 09:18 Folic Acid PO 1 mg DAILY MARYLOU Administration Heparin Sodium (Porcine) 5,000 units 11/27/16 14:00 11/27/16 14:18 Heparin SC 5,000 units Q8 MARYLOU Administration Gentamicin Sulfate/Sodium Chloride 80 mg in 100 mls @ 100 mls/hr 11/13/16 09: 00 11/27/16 12:48 Gentamicin Iv 80 Mg Premix IVPB 100 mls/hr [facility] MARYLOU Administration Cefepime HCl 1 gm in 50 mls @ 100 mls/hr 11/17/16 18:00 11/26/16 17:32 Maxipime Iv 1 Gm Premix IVPB 100 mls/hr Q24H MARYLOU Administration Vancomycin HCl 1,000 mg/ 250 mls @ 166.6 mls/hr 11/25/16 09:00 11/27/16 12:49 Sodium Chloride IVPB 166.6 mls/hr [facility] [place] Dopamine HCl/Dextrose 400 mg in 250 mls @ 4.81 mls/hr 11/25/16 15:03 03:00 Dopamine 400mg/250ml D5w IV 2 mcg/kg/min .Q24H PRN 4.81 mls/hr TITRATE PER MD ORDER Titration Protocol 2 MCG/KG/MIN Insulin Human Regular 0 unit 11/27/16 11:30 11/27/16 11:30 Novolin R SC Not Given ACHS MARYLOU Protocol Lactobacillus Acidophilus 1 cap 11/16/16 18:00 11/27/16 09:19 Bacid Acidophilus PO 1 cap BID MARYLOU Administration Losartan Potassium 100 mg 11/22/16 12:30 11/27/16 09:19 Cozaar PO 100 mg DAILY MARYLOU Administration Nitroglycerin 0.4 mg 11/12/16 18:57 Nitrostat Sl Tab SL Q15M PRN chest pain - Patient Studies Lab Studies: Microbiology Studies 11/25/16 17:00 MRSA Culture (Admit) - Final Naris MRSA NOT DETECTED 11/25/16 15:00 Gram Stain - Final Abdomen Wound Culture - Preliminary Gram Positive Cocci Lab Studies 11/27/16 11/27/16 11/27/16 Range/Units 11:23 07:20 06:08 WBC 12.9 H (4.8-10.8) K/uL RBC 3.09 L (3.80-5.20) Mil/uL Hgb 8.6 L (11.0-16.0) g/dL Hct 27.4 L (34.0-47.0) % MCV 88.7 (81.0-99.0) fL MCH 27.8 (27.0-31.0) pg MCHC 31.3 L (33.0-37.0) g/dL RDW 15.4 H (11.5-14.5) % Plt Count 220 (130-400) K/uL MPV 8.7 (7.2-11.7) fL Neut % (Auto) 85.2 H (50.0-75.0) % Lymph % (Auto) 8.1 L (20.0-40.0) % Mccone % (Auto) 6.3 (0.0-10.0) % Eos % (Auto) 0.2 (0.0-4.0) % Baso % (Auto) 0.2 (0.0-2.0) % Neut # 11.0 H (1.8-7.0) K/uL Lymph # 1.1 (1.0-4.3) K/uL Mccone # 0.8 (0.0-0.8) K/uL Eos # 0.0 (0.0-0.7) K/uL Baso # 0.0 (0.0-0.2) K/uL Neutrophils % (Manual) 87 H (50-75) % Lymphocytes % (Manual) 4 L (20-40) % Monocytes % (Manual) 9 (0-10) % Platelet Estimate Normal (NORMAL) Large Platelets Present Hypochromasia (manual) Slight Poikilocytosis (manual Slight Anisocytosis (manual) Slight Microcytosis (manual) Slight Macrocytosis (manual) Slight Target Cells Slight Ovalocytes Slight Sodium (132-148) mmol/L Potassium (3.6-5.2) mmol/L Chloride (98-107) mmol/L Carbon Dioxide (22-30) mmol/L Anion Gap (10-20) BUN (7-17) mg/dL Creatinine (0.7-1.2) MG/DL Est GFR ( Amer) Est GFR (Non-Af Amer) POC Glucose (mg/dL) 135 H 158 H (65-110) mg/dL Random Glucose (65-105) mg/dL Calcium (8.6-10.4) mg/dl Phosphorus (2.5-4.5) mg/dL Magnesium (1.6-2.3) mg/dL Total Bilirubin (0.2-1.3) mg/dL AST (14-36) U/L ALT (9-52) U/L Alkaline Phosphatase (38-126) U/L Total Protein (6.3-8.3) g/dL Albumin (3.5-5.0) g/dL Globulin (2.2-3.9) gm/dL Albumin/Globulin Ratio (1.0-2.1) 11/27/16 11/26/16 Range/Units 06:05 17:55 WBC (4.8-10.8) K/uL RBC (3.80-5.20) Mil/uL Hgb (11.0-16.0) g/dL Hct (34.0-47.0) % MCV (81.0-99.0) fL MCH (27.0-31.0) pg MCHC (33.0-37.0) g/dL RDW (11.5-14.5) % Plt Count (130-400) K/uL MPV (7.2-11.7) fL Neut % (Auto) (50.0-75.0) % Lymph % (Auto) (20.0-40.0) % Mccone % (Auto) (0.0-10.0) % Eos % (Auto) (0.0-4.0) % Baso % (Auto) (0.0-2.0) % Neut # (1.8-7.0) K/uL Lymph # (1.0-4.3) K/uL Mccone # (0.0-0.8) K/uL Eos # (0.0-0.7) K/uL Baso # (0.0-0.2) K/uL Neutrophils % (Manual) (50-75) % Lymphocytes % (Manual) (20-40) % Monocytes % (Manual) (0-10) % Platelet Estimate (NORMAL) Large Platelets Hypochromasia (manual) Poikilocytosis (manual Anisocytosis (manual) Microcytosis (manual) Macrocytosis (manual) Target Cells Ovalocytes Sodium 132 (132-148) mmol/L Potassium 4.1 (3.6-5.2) mmol/L Chloride 96 L (98-107) mmol/L Carbon Dioxide 23 (22-30) mmol/L Anion Gap 17 (10-20) BUN 44 H (7-17) mg/dL Creatinine 4.7 H (0.7-1.2) MG/DL Est GFR ( Amer) 11 Est GFR (Non-Af Amer) 9 POC Glucose (mg/dL) 189 H (65-110) mg/dL Random Glucose 130 H (65-105) mg/dL Calcium 9.4 (8.6-10.4) mg/dl Phosphorus 8.5 H (2.5-4.5) mg/dL Magnesium 2.0 (1.6-2.3) mg/dL Total Bilirubin 0.7 (0.2-1.3) mg/dL AST 34 (14-36) U/L ALT 28 (9-52) U/L Alkaline Phosphatase 124 (38-126) U/L Total Protein 7.7 (6.3-8.3) g/dL Albumin 2.7 L (3.5-5.0) g/dL Globulin 4.9 H (2.2-3.9) gm/dL Albumin/Globulin Ratio 0.6 L (1.0-2.1) Laboratory Results - last 24 hr 11/26/16 11/27/16 11/27/16 17:55 06:05 06:08 WBC 12.9 H RBC 3.09 L Hgb 8.6 L Hct 27.4 L MCV 88.7 MCH 27.8 MCHC 31.3 L RDW 15.4 H Plt Count 220 MPV 8.7 Neut % (Auto) 85.2 H Lymph % (Auto) 8.1 L Mccone % (Auto) 6.3 Eos % (Auto) 0.2 Baso % (Auto) 0.2 Neut # 11.0 H Lymph # 1.1 Mccone # 0.8 Eos # 0.0 Baso # 0.0 Neutrophils % (Manual) 87 H Lymphocytes % (Manual) 4 L Monocytes % (Manual) 9 Platelet Estimate Normal Large Platelets Present Hypochromasia (manual) Slight Poikilocytosis (manual Slight Anisocytosis (manual) Slight Microcytosis (manual) Slight Macrocytosis (manual) Slight Target Cells Slight Ovalocytes Slight Sodium 132 Potassium 4.1 Chloride 96 L Carbon Dioxide 23 Anion Gap 17 BUN 44 H Creatinine 4.7 H Est GFR ( Amer) 11 Est GFR (Non-Af Amer) 9 POC Glucose (mg/dL) 189 H Random Glucose 130 H Calcium 9.4 Phosphorus 8.5 H Magnesium 2.0 Total Bilirubin 0.7 AST 34 ALT 28 Alkaline Phosphatase 124 Total Protein 7.7 Albumin 2.7 L Globulin 4.9 H Albumin/Globulin Ratio 0.6 L 11/27/16 11/27/16 07:20 11:23 WBC RBC Hgb Hct MCV MCH MCHC RDW Plt Count MPV Neut % (Auto) Lymph % (Auto) Mccone % (Auto) Eos % (Auto) Baso % (Auto) Neut # Lymph # Mccone # Eos # Baso # Neutrophils % (Manual) Lymphocytes % (Manual) Monocytes % (Manual) Platelet Estimate Large Platelets Hypochromasia (manual) Poikilocytosis (manual Anisocytosis (manual) Microcytosis (manual) Macrocytosis (manual) Target Cells Ovalocytes Sodium Potassium Chloride Carbon Dioxide Anion Gap BUN Creatinine Est GFR ( Amer) Est GFR (Non-Af Amer) POC Glucose (mg/dL) 158 H 135 H Random Glucose Calcium Phosphorus Magnesium Total Bilirubin AST ALT Alkaline Phosphatase Total Protein Albumin Globulin Albumin/Globulin Ratio Critical Care Progress Note - Nutrition Nutrition: Nutrition Category Date Time Status Renal Diet [DIET] Diets 11/27/16 Lunch Active Assessment/Plan (1) Dyspnea Current Visit: Yes Status: Acute (2) Intra-abdominal abscess Current Visit: Yes Status: Acute Attending/Attestation - Attestation I have personally seen and examined this patient.: Yes I have fully participated in the care of the patient.: Yes I have reviewed all pertinent clinical information: Yes Notes (Text): 11/27/16 16:03 Patient seen and examined in the intensive care unit. Case discussed with house staff in the morning rounds. Patient started on Xanax for anxiety/panic attacks No shortness of breath, no fever or chills Status post hemodialysis Continue antibiotics
--- NOTE | 2016-11-27 11:16 | CP.PCM.PN ---
Subjective - Date & Time of Evaluation Date of Evaluation: 11/27/16 Time of Evaluation: 11:15 - Subjective Subjective: seen and exmined ongoing hd, estimated uf 2L bp stable extubated labs noted cxr - congestion Objective - Vital Signs/Intake and Output Vital Signs (last 24 hours): Temp Pulse Resp BP Pulse Ox 97.7 F 118 H 15 158/88 H 95 11/27/16 09:25 11/27/16 09:43 11/27/16 09:43 11/27/16 10:25 11/27/16 09:43 Intake and Output: 11/27/16 11/27/16 06:59 18:59 Intake Total 150 150 Output Total 30 Balance 120 150 - Medications Medications: Current Medications Acetaminophen (Tylenol 325mg Tab) 650 mg PO Q6 PRN PRN Reason: temp > 99.5 Last Admin: 11/23/16 18:44 Dose: 650 mg Albuterol/Ipratropium (Duoneb 3 Mg/0.5 Mg (3 Ml) Ud) 3 ml INH RQ4 [facility] Last Admin: 11/27/16 07:56 Dose: 3 ml Alprazolam (Xanax) 0.25 mg PO BID PRN PRN Reason: Anxiety Stop: 12/04/16 09:15 Epoetin Mik (Procrit) 10,000 unit IV [facility] [place] [place] Last Admin: 11/27/16 10:29 Dose: 10,000 unit Famotidine (Pepcid) 20 mg PO DAILY [facility] Last Admin: 11/27/16 09:18 Dose: 20 mg Folic Acid (Folic Acid) 1 mg PO DAILY [facility] Last Admin: 11/27/16 09:18 Dose: 1 mg Heparin Sodium (Porcine) (Heparin) 5,000 units SC Q8 [facility] Gentamicin Sulfate/Sodium Chloride (Gentamicin Iv 80 Mg Premix) 80 mg in 100 mls @ 100 mls/hr [facility] Last Admin: 11/25/16 10:00 Dose: 100 mls/hr Cefepime HCl (Maxipime Iv 1 Gm Premix) 1 gm in 50 mls @ 100 mls/hr IVPB Q24H [facility] Last Admin: 11/26/16 17:32 Dose: 100 mls/hr Vancomycin HCl 1,000 mg/ (Sodium Chloride) 250 mls @ 166.6 mls/hr IVPB [facility] [place] [place] Last Admin: 11/25/16 11:00 Dose: 166.6 mls/hr Dopamine HCl/Dextrose (Dopamine 400mg/250ml D5w) 400 mg in 250 mls @ 4.81 mls/ hr IV .Q24H PRN; Protocol; 2 MCG/KG/MIN PRN Reason: TITRATE PER MD ORDER Last Titration: 11/26/16 03:00 Dose: 2 mcg/kg/min, 4.81 mls/hr Insulin Human Regular (Novolin R) 0 unit SC ACHS [facility] PRN Reason: Protocol Lactobacillus Acidophilus (Bacid Acidophilus) 1 cap PO BID [facility] Last Admin: 11/27/16 09:19 Dose: 1 cap Losartan Potassium (Cozaar) 100 mg PO DAILY [facility] Last Admin: 11/27/16 09:19 Dose: 100 mg Nitroglycerin (Nitrostat Sl Tab) 0.4 mg SL Q15M PRN PRN Reason: chest pain - Labs Labs: 11/27/16 06:08 11/27/16 06:05 PT 12.3 SECONDS (9.7-12.2) H 11/25/16 06:20 INR 1.1 11/25/16 06:20 APTT 42 SECONDS (21-34) H 11/25/16 06:20 - Constitutional Appears: Non-toxic, No Acute Distress, Chronically Ill - Head Exam Head Exam: NORMAL INSPECTION - Eye Exam Eye Exam: Normal appearance - ENT Exam ENT Exam: Mucous Membranes Dry - Neck Exam Neck Exam: Normal Inspection - Respiratory Exam Respiratory Exam: Decreased Breath Sounds, Rales, NORMAL BREATHING PATTERN - Cardiovascular Exam Cardiovascular Exam: REGULAR RHYTHM, RRR - GI/Abdominal Exam GI & Abdominal Exam: Distended (dressing), Soft - Extremities Exam Extremities Exam: Normal Inspection Assessment and Plan (1) Hypertension Status: Acute (2) ESRD (end stage renal disease) Status: Chronic (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
[2016-11-27] MEDS: (Novolin R) Insulin Human Regular 100 units/ml vial SC SCH ×3 (11:30→21:37)
[2016-11-27] MEDS: Gentamicin 80 mg in 0.9% NS 80 MG/100 ML BAG IVPB SCH (12:48)
--- NOTE | 2016-11-27 15:57 | CP.PCM.PN ---
Subjective - Date & Time of Evaluation Date of Evaluation: 11/27/16 Time of Evaluation: 10:00 - Subjective Subjective: CULTURES NOTED IV RX RENEWED Objective - Vital Signs/Intake and Output Vital Signs (last 24 hours): Temp Pulse Resp BP Pulse Ox 97.9 F 114 H 14 165/89 H 100 11/27/16 12:25 11/27/16 14:00 11/27/16 14:00 11/27/16 12:34 11/27/16 14:00 Intake and Output: 11/27/16 11/27/16 06:59 18:59 Intake Total 150 300 Output Total 30 0 Balance 120 300 - Medications Medications: Current Medications Acetaminophen (Tylenol 325mg Tab) 650 mg PO Q6 PRN PRN Reason: temp > 99.5 Last Admin: 11/23/16 18:44 Dose: 650 mg Albuterol/Ipratropium (Duoneb 3 Mg/0.5 Mg (3 Ml) Ud) 3 ml INH RQ4 [facility] Last Admin: 11/27/16 11:43 Dose: 3 ml Alprazolam (Xanax) 0.25 mg PO BID PRN PRN Reason: Anxiety Stop: 12/04/16 09:15 Calcium Acetate (Phoslo) 667 mg PO TIDCC [facility] Epoetin Mik (Procrit) 10,000 unit IV MWF [facility] Last Admin: 11/27/16 10:29 Dose: 10,000 unit Famotidine (Pepcid) 20 mg PO DAILY [facility] Last Admin: 11/27/16 09:18 Dose: 20 mg Folic Acid (Folic Acid) 1 mg PO DAILY [facility] Last Admin: 11/27/16 09:18 Dose: 1 mg Heparin Sodium (Porcine) (Heparin) 5,000 units SC Q8 [facility] Last Admin: 11/27/16 14:18 Dose: 5,000 units Gentamicin Sulfate/Sodium Chloride (Gentamicin Iv 80 Mg Premix) 80 mg in 100 mls @ 100 mls/hr IVPB MWF [facility] Last Admin: 11/27/16 12:48 Dose: 100 mls/hr Cefepime HCl (Maxipime Iv 1 Gm Premix) 1 gm in 50 mls @ 100 mls/hr IVPB Q24H [facility] Last Admin: 11/26/16 17:32 Dose: 100 mls/hr Vancomycin HCl 1,000 mg/ (Sodium Chloride) 250 mls @ 166.6 mls/hr IVPB MWF [facility] Last Admin: 11/27/16 12:49 Dose: 166.6 mls/hr Dopamine HCl/Dextrose (Dopamine 400mg/250ml D5w) 400 mg in 250 mls @ 4.81 mls/ hr IV .Q24H PRN; Protocol; 2 MCG/KG/MIN PRN Reason: TITRATE PER MD ORDER Last Titration: 11/26/16 03:00 Dose: 2 mcg/kg/min, 4.81 mls/hr Insulin Human Regular (Novolin R) 0 unit SC ACHS [facility] PRN Reason: Protocol Last Admin: 11/27/16 11:30 Dose: Not Given Lactobacillus Acidophilus (Bacid Acidophilus) 1 cap PO BID [facility] Last Admin: 11/27/16 09:19 Dose: 1 cap Losartan Potassium (Cozaar) 100 mg PO DAILY [facility] Last Admin: 11/27/16 09:19 Dose: 100 mg Nitroglycerin (Nitrostat Sl Tab) 0.4 mg SL Q15M PRN PRN Reason: chest pain - Labs Labs: 11/27/16 06:08 11/27/16 06:05 PT 12.3 SECONDS (9.7-12.2) H 11/25/16 06:20 INR 1.1 11/25/16 06:20 APTT 42 SECONDS (21-34) H 11/25/16 06:20 - Constitutional Appears: Non-toxic - Head Exam Head Exam: NORMOCEPHALIC - Eye Exam Eye Exam: EOMI, PERRL. absent: Scleral icterus - ENT Exam ENT Exam: Mucous Membranes Dry, Normal External Ear Exam - Neck Exam Neck Exam: absent: Lymphadenopathy - Respiratory Exam Respiratory Exam: Decreased Breath Sounds, Clear to Ausculation Bilateral - Cardiovascular Exam Cardiovascular Exam: REGULAR RHYTHM, +S1, +S2 - GI/Abdominal Exam GI & Abdominal Exam: Distended, Soft. absent: Tenderness - Rectal Exam Rectal Exam: Deferred Assessment and Plan (1) ESRD (end stage renal disease) Status: Chronic (2) Intra-abdominal abscess Status: Acute - Assessment and Plan (Free Text) Assessment: CONT IV RX RENEWED
[2016-11-27] MEDS: Cefepime IV 1 gm in Dextrose 1 GM/50 ML BAG IVPB SCH (17:54)
--- NOTE | 2016-11-27 21:25 | CP.PCM.PN ---
Subjective - Date & Time of Evaluation Date of Evaluation: 11/27/16 Time of Evaluation: 21:22 - Subjective Subjective: Despite a few nursing reports that pt was confused, pt called out my name from bed while I was at the nurse's station and gripped my hand strongly when i approached her at bedside. Pt immediately expressed her wishes to go home instead of going any place else. Pt appeared to be in control of all her faculties. Pt has had IV abx at home, as well as home PT. If at all possible, will shoot for this goal with pt. Objective - Vital Signs/Intake and Output Vital Signs (last 24 hours): Temp Pulse Resp BP Pulse Ox 98.0 F 98 H 16 151/70 H 100 11/27/16 20:00 11/27/16 19:31 11/27/16 19:31 11/27/16 19:31 11/27/16 19:31 Intake and Output: 11/27/16 11/28/16 18:59 06:59 Intake Total 550 Output Total 30 Balance 520 - Medications Medications: Current Medications Acetaminophen (Tylenol 325mg Tab) 650 mg PO Q6 PRN PRN Reason: temp > 99.5 Last Admin: 11/23/16 18:44 Dose: 650 mg Albuterol/Ipratropium (Duoneb 3 Mg/0.5 Mg (3 Ml) Ud) 3 ml INH RQ4 [facility] Last Admin: 11/27/16 19:58 Dose: 3 ml Alprazolam (Xanax) 0.25 mg PO BID PRN PRN Reason: Anxiety Stop: 12/04/16 09:15 Calcium Acetate (Phoslo) 667 mg PO TIDCC [facility] Last Admin: 11/27/16 17:55 Dose: 667 mg Epoetin Mik (Procrit) 10,000 unit IV MWF [facility] Last Admin: 11/27/16 10:29 Dose: 10,000 unit Famotidine (Pepcid) 20 mg PO DAILY [facility] Last Admin: 11/27/16 09:18 Dose: 20 mg Folic Acid (Folic Acid) 1 mg PO DAILY [facility] Last Admin: 11/27/16 09:18 Dose: 1 mg Heparin Sodium (Porcine) (Heparin) 5,000 units SC Q12 [facility] Gentamicin Sulfate/Sodium Chloride (Gentamicin Iv 80 Mg Premix) 80 mg in 100 mls @ 100 mls/hr IVPB MWF [facility] Last Admin: 11/27/16 12:48 Dose: 100 mls/hr Cefepime HCl (Maxipime Iv 1 Gm Premix) 1 gm in 50 mls @ 100 mls/hr IVPB Q24H [facility] Last Admin: 11/27/16 17:54 Dose: 100 mls/hr Vancomycin HCl 1,000 mg/ (Sodium Chloride) 250 mls @ 166.6 mls/hr IVPB MWF [facility] Last Admin: 11/27/16 12:49 Dose: 166.6 mls/hr Insulin Human Regular (Novolin R) 0 unit SC ACHS [facility] PRN Reason: Protocol Last Admin: 11/27/16 16:54 Dose: Not Given Lactobacillus Acidophilus (Bacid Acidophilus) 1 cap PO BID [facility] Last Admin: 11/27/16 17:55 Dose: 1 cap Losartan Potassium (Cozaar) 100 mg PO DAILY [facility] Last Admin: 11/27/16 09:19 Dose: 100 mg Nitroglycerin (Nitrostat Sl Tab) 0.4 mg SL Q15M PRN PRN Reason: chest pain - Labs Labs: 11/27/16 06:08 11/27/16 06:05 PT 12.3 SECONDS (9.7-12.2) H 11/25/16 06:20 INR 1.1 11/25/16 06:20 APTT 42 SECONDS (21-34) H 11/25/16 06:20 - Constitutional Appears: No Acute Distress - Head Exam Head Exam: NORMAL INSPECTION, NORMOCEPHALIC - Eye Exam Eye Exam: PERRL Pupil Exam: NORMAL ACCOMODATION - ENT Exam ENT Exam: Mucous Membranes Moist, Normal Exam - Neck Exam Neck Exam: Normal Inspection - Respiratory Exam Respiratory Exam: Clear to Ausculation Bilateral, NORMAL BREATHING PATTERN - Cardiovascular Exam Cardiovascular Exam: REGULAR RHYTHM - GI/Abdominal Exam GI & Abdominal Exam: Soft, Normal Bowel Sounds - Rectal Exam Rectal Exam: Deferred - Extremities Exam Extremities Exam: Normal Capillary Refill - Back Exam Back Exam: NORMAL INSPECTION - Neurological Exam Neuro motor strength exam: Left Upper Extremity: 4, Right Upper Extremity: 4, Left Lower Extremity: 2/1, Right Lower Extremity: 2/1 - Skin Skin Exam: Dry, Normal Color, Warm Assessment and Plan (1) Respiratory failure Status: Resolved (2) Intra-abdominal abscess Status: Acute (3) Anemia of chronic disease Status: Chronic (4) ESRD (end stage renal disease) Status: Chronic (5) Generalized weakness Status: Acute
[2016-11-28] MEDS: Albuterol-Ipratrop 3 mg / 0.5 (3 ml) UD INH SCH ×4 (04:00→16:25)
[2016-11-28 06:20] LABS: BASO % 0.3 % (0.0-2.0); EOS # 0.2 K/uL (0.0-0.7); EOS % 2.7 % (0.0-4.0); HEMATOCRIT 27.2 % (34.0-47.0); LYMPH # 0.8 K/uL (1.0-4.3); LYMPH % 11.5 % (20.0-40.0); MEAN CELL VOLUME 87.4 fL (81.0-99.0); MEAN CORPUSCULAR HEMOGLOBIN 28.3 pg (27.0-31.0); MEAN CORPUSCULAR HGB CONC 32.4 g/dL (33.0-37.0); MEAN PLATELET VOLUME 8.2 fL (7.2-11.7); MONO # 0.9 K/uL (0.0-0.8); MONO % 12.6 % (0.0-10.0); RED CELL DISTRIBUTION WIDTH 15.3 % (11.5-14.5); WHITE BLOOD COUNT 6.9 K/uL (4.8-10.8)
[2016-11-28 06:42] LABS: POTASSIUM 3.6 mmol/L (3.6-5.2)
[2016-11-28 06:44] LABS: ALB/GLOB RATIO 0.6 (1.0-2.1); BILIRUBIN,TOTAL 0.8 mg/dL (0.2-1.3); TOTAL PROTEIN 7.2 g/dL (6.3-8.3)
[2016-11-28 06:45] LABS: MAGNESIUM 1.9 mg/dL (1.6-2.3); PHOSPHOROUS 5.7 mg/dL (2.5-4.5)
--- NOTE | 2016-11-28 07:11 | CP.PCM.PN ---
Subjective - Date & Time of Evaluation Date of Evaluation: 11/28/16 Time of Evaluation: 07:08 - Subjective Subjective: PGY1 Progress Note for Dr. Garzon: Patient seen and examined. Patient states she is feeling well. Per nursing, no events overnight. Patient denies pain. Objective - Vital Signs/Intake and Output Vital Signs (last 24 hours): Temp Pulse Resp BP Pulse Ox 97.9 F 92 H 19 146/77 100 11/28/16 04:00 11/28/16 05:31 11/28/16 05:31 11/28/16 05:31 11/28/16 05:31 Intake and Output: 11/28/16 11/28/16 06:59 18:59 Intake Total 118 Output Total 70 Balance 48 - Medications Medications: Current Medications Acetaminophen (Tylenol 325mg Tab) 650 mg PO Q6 PRN PRN Reason: temp > 99.5 Last Admin: 11/23/16 18:44 Dose: 650 mg Albuterol/Ipratropium (Duoneb 3 Mg/0.5 Mg (3 Ml) Ud) 3 ml INH RQ4 [facility] Last Admin: 11/28/16 04:00 Dose: Not Given Alprazolam (Xanax) 0.25 mg PO BID PRN PRN Reason: Anxiety Stop: 12/04/16 09:15 Last Admin: 11/27/16 22:46 Dose: 0.25 mg Calcium Acetate (Phoslo) 667 mg PO TIDCC [facility] Last Admin: 11/27/16 17:55 Dose: 667 mg Epoetin Mik (Procrit) 10,000 unit IV MWF [facility] Last Admin: 11/27/16 10:29 Dose: 10,000 unit Famotidine (Pepcid) 20 mg PO DAILY [facility] Last Admin: 11/27/16 09:18 Dose: 20 mg Folic Acid (Folic Acid) 1 mg PO DAILY [facility] Last Admin: 11/27/16 09:18 Dose: 1 mg Heparin Sodium (Porcine) (Heparin) 5,000 units SC Q12 [facility] Last Admin: 11/27/16 22:46 Dose: 5,000 units Gentamicin Sulfate/Sodium Chloride (Gentamicin Iv 80 Mg Premix) 80 mg in 100 mls @ 100 mls/hr IVPB MWF [facility] Last Admin: 11/27/16 12:48 Dose: 100 mls/hr Cefepime HCl (Maxipime Iv 1 Gm Premix) 1 gm in 50 mls @ 100 mls/hr IVPB Q24H [facility] Last Admin: 11/27/16 17:54 Dose: 100 mls/hr Vancomycin HCl 1,000 mg/ (Sodium Chloride) 250 mls @ 166.6 mls/hr IVPB MWF [facility] Last Admin: 11/27/16 12:49 Dose: 166.6 mls/hr Insulin Human Regular (Novolin R) 0 unit SC ACHS [facility] PRN Reason: Protocol Last Admin: 11/27/16 21:37 Dose: Not Given Lactobacillus Acidophilus (Bacid Acidophilus) 1 cap PO BID [facility] Last Admin: 11/27/16 17:55 Dose: 1 cap Losartan Potassium (Cozaar) 100 mg PO DAILY [facility] Last Admin: 11/27/16 09:19 Dose: 100 mg Nitroglycerin (Nitrostat Sl Tab) 0.4 mg SL Q15M PRN PRN Reason: chest pain - Labs Labs: 11/28/16 06:03 11/28/16 06:03 PT 12.3 SECONDS (9.7-12.2) H 11/25/16 06:20 INR 1.1 11/25/16 06:20 APTT 42 SECONDS (21-34) H 11/25/16 06:20 - Constitutional Appears: No Acute Distress - Head Exam Head Exam: ATRAUMATIC, NORMOCEPHALIC - Eye Exam Eye Exam: EOMI - ENT Exam ENT Exam: Mucous Membranes Moist - Respiratory Exam Respiratory Exam: NORMAL BREATHING PATTERN - GI/Abdominal Exam GI & Abdominal Exam: Soft. absent: Tenderness Additional comments: seropurulent fluid in drain, abdominal dressing changed - Neurological Exam Neurological Exam: Alert, Awake - Psychiatric Exam Psychiatric exam: Normal Affect - Skin Skin Exam: Warm Assessment and Plan - Assessment and Plan (Free Text) Assessment: 71 y/o female s/p ex lap with drainage intraabdominal abscess POD #3, subsequently requiring intubation due to respiratory failure- currently extubated -monitor abdominal drain output- 70cc seropurulent drainage overnight per nursing report -leave dressing in place and reinforce prn -daily labs- WBC decreased from 12.9 to 6.9 -cont abx per ID -abdominal abscess fluid culture light growth gram positive cocci -continue medical management as per ICU team -[facility]
[2016-11-28] MEDS: (Novolin R) Insulin Human Regular 100 units/ml vial SC SCH ×4 (07:52→21:55)
[2016-11-28] MEDS: Lactobacillus Acidophilus 500 MU Cap PO SCH ×2 (09:43→18:09)
[2016-11-28] MEDS: POLYETHYLENE GLYCOL 3350 17 GM/Dose PACKET PO SCH (09:43)
--- NOTE | 2016-11-28 09:44 | CP.PCM.PN ---
Subjective - Date & Time of Evaluation Date of Evaluation: 11/28/16 Time of Evaluation: 09:42 - Subjective Subjective: s/p dialysis 11/27 Doing better- not confused at this time +VSE wound cultures noted Had CHF- better with HD, still with rales, moderate dyspnea On IV ABs Objective - Vital Signs/Intake and Output Vital Signs (last 24 hours): Temp Pulse Resp BP Pulse Ox 97.4 F L 109 H 18 158/82 H 89 L 11/28/16 08:00 11/28/16 09:00 11/28/16 09:00 11/28/16 07:31 11/28/16 08:31 Intake and Output: 11/28/16 11/28/16 06:59 18:59 Intake Total 118 Output Total 70 Balance 48 - Medications Medications: Current Medications Acetaminophen (Tylenol 325mg Tab) 650 mg PO Q6 PRN PRN Reason: temp > 99.5 Last Admin: 11/23/16 18:44 Dose: 650 mg Albuterol/Ipratropium (Duoneb 3 Mg/0.5 Mg (3 Ml) Ud) 3 ml INH RQ4 [facility] Last Admin: 11/28/16 08:05 Dose: 3 ml Alprazolam (Xanax) 0.25 mg PO Q8H PRN PRN Reason: Anxiety Stop: 12/05/16 08:49 Calcium Acetate (Phoslo) 667 mg PO TIDCC [facility] Last Admin: 11/28/16 07:59 Dose: 667 mg Epoetin Mik (Procrit) 10,000 unit IV MWF [facility] Last Admin: 11/27/16 10:29 Dose: 10,000 unit Famotidine (Pepcid) 20 mg PO DAILY [facility] Last Admin: 11/27/16 09:18 Dose: 20 mg Folic Acid (Folic Acid) 1 mg PO DAILY [facility] Last Admin: 11/27/16 09:18 Dose: 1 mg Heparin Sodium (Porcine) (Heparin) 5,000 units SC Q12 [facility] Last Admin: 11/27/16 22:46 Dose: 5,000 units Gentamicin Sulfate/Sodium Chloride (Gentamicin Iv 80 Mg Premix) 80 mg in 100 mls @ 100 mls/hr IVPB MWF [facility] Last Admin: 11/27/16 12:48 Dose: 100 mls/hr Cefepime HCl (Maxipime Iv 1 Gm Premix) 1 gm in 50 mls @ 100 mls/hr IVPB Q24H [facility] Last Admin: 11/27/16 17:54 Dose: 100 mls/hr Vancomycin HCl 1,000 mg/ (Sodium Chloride) 250 mls @ 166.6 mls/hr IVPB MWF [facility] Last Admin: 11/27/16 12:49 Dose: 166.6 mls/hr Insulin Human Regular (Novolin R) 0 unit SC ACHS [facility] PRN Reason: Protocol Last Admin: 11/28/16 07:52 Dose: Not Given Lactobacillus Acidophilus (Bacid Acidophilus) 1 cap PO BID [facility] Last Admin: 11/27/16 17:55 Dose: 1 cap Losartan Potassium (Cozaar) 100 mg PO DAILY [facility] Last Admin: 11/27/16 09:19 Dose: 100 mg Nitroglycerin (Nitrostat Sl Tab) 0.4 mg SL Q15M PRN PRN Reason: chest pain Polyethylene Glycol (Miralax) 17 gm PO DAILY [facility] Senna/Docusate Sodium (Senokot S 50 Mg-8.6 Mg) 2 tab PO Q12H [facility] - Labs Labs: 11/28/16 06:03 11/28/16 06:03 PT 11.5 SECONDS (9.7-12.2) 11/28/16 06:03 INR 1.0 11/28/16 06:03 APTT 40 SECONDS (21-34) H 11/28/16 06:03 - Constitutional Appears: No Acute Distress, Chronically Ill - Head Exam Head Exam: ATRAUMATIC, NORMAL INSPECTION - Eye Exam Eye Exam: EOMI, Normal appearance - Neck Exam Neck Exam: Normal Inspection. absent: Tenderness - Respiratory Exam Respiratory Exam: Rales, NORMAL BREATHING PATTERN - Cardiovascular Exam Cardiovascular Exam: Tachycardia, +S1 - GI/Abdominal Exam GI & Abdominal Exam: Soft. absent: Tenderness - Extremities Exam Extremities Exam: Normal Inspection. 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
[2016-11-28] MEDS: Docusate-Senna 50 mg-8.6 mg Tab PO SCH ×2 (12:18→21:41)
--- NOTE | 2016-11-28 13:08 | CP.CCUPN ---
<Moustapha Bangura - Last Filed: 11/28/16 12:57> CCU Subjective - Physician Review Subjective (Free Text): 11/28/16 12:[address] Wiseman Patient seen and examined at the bedside. No acute distress. No acute events overnight. Nursing staff reports no issues. Patient has complaint of diffuse abdominal pain surrounding her incision and constipation. The patient was seen by Dr. Wall as well this morning. The patient will have a session of HD today. The patient is mildly tachycardic. Patient is medically stable and will be transferred to telemetry today. On rounds: The patients xanax was changed to a scheduled dose of 0.25mg Q8h. The patient was also prescribed miralax and senokot for her constipation. Following our evaluation, it was determined that the patient was medically stable for transfer from the ICU to telemetry. Critical Care Time Spent (in minutes): 60 CCU Objective - Vital Signs / Intake & Output Vital Signs (Last 4 hours): Vital Signs Temp Pulse Pulse Resp BP BP Pulse Ox 11/28/16 12:30 16 L 16 152/66 H 100 11/28/16 12:00 98.6 F 18 L 15 132/84 100 11/28/16 11:45 104 H 15 151/86 H 100 11/28/16 11:44 154/85 H 11/28/16 11:43 103 H 22 100 11/28/16 11:29 101 H 21 151/86 H 100 11/28/16 11:15 100 H 15 135/86 100 11/28/16 11:14 102 H 23 153/87 H 100 11/28/16 11:00 101 H 99 H 16 154/79 H 100 11/28/16 10:59 99 H 24 154/79 H 100 11/28/16 10:45 98 F 100 H 100 H 18 182/83 H 182/83 H 100 11/28/16 10:44 116 H 21 182/83 H 100 11/28/16 10:31 101 H 166/91 H 100 11/28/16 10:00 112 H 16 11/28/16 09:31 102 H 20 159/81 H 100 11/28/16 09:00 109 H 18 Intake and Output (Last 8hrs): Intake & Output 11/27/16 11/28/16 11/28/16 22:59 06:59 14:59 Intake Total 250 118 120 Output Total 30 70 0 Balance 220 48 120 Weight 67.222 kg Intake: Intake, IV Amount 250 L PICC 250 Oral 0 118 120 Output: Drainage 30 70 Lower Abdomen 30 70 Urine 0 0 0 Urine, Voided 0 0 0 Stool 0 - Physical Exam Head: Positive for: Atraumatic, Normocephalic Pupils: Positive for: PERRL Extroacular Muscles: Positive for: EOMI Mouth: Positive for: Moist Mucous Membranes Respiratory/Chest: Positive for: Good Air Exchange, Decreased Breath Sounds, Rales (bibasilar). Negative for: Clear to Auscultation, Accessory Muscle Use, Wheezes, Rhonchi Cardiovascular: Positive for: Normal S1, S2, Peripheal Pulses Present, Tachycardic. Negative for: Regular Rate and Rhythm, Murmurs Abdomen: Positive for: Tenderness (surrounding incision), Normal Bowel Sounds, Other (dressing in place: clean, dry, intact). Negative for: Distention, Rebound, Guarding Upper Extremity: Positive for: NORMAL PULSES, Neurovascularly Intact Lower Extremity: Positive for: Edema (trace - 1+), NORMAL PULSES, Neurovascularly Intact. Negative for: CALF TENDERNESS Neurological: Positive for: CN II-XII Intact, Speech Normal, Motor Func Grossly Intact Skin: Positive for: Warm, Dry Psychiatric: Positive for: Alert, Oriented x 3 - Medications Active Medications: Active Medications Generic Name Dose Route Start Last Admin Trade Name Freq PRN Reason Stop Dose Admin Acetaminophen 650 mg 11/11/16 19:17 11/23/16 18:44 Tylenol 325mg Tab PO 650 mg Q6 PRN Administration temp > 99.5 Albuterol/Ipratropium 3 ml 11/23/16 16:00 11/28/16 08:05 Duoneb 3 Mg/0.5 Mg (3 Ml) Ud INH 3 ml RQ4 MARYLOU Administration Alprazolam 0.25 mg 11/28/16 08:48 Xanax PO 12/05/16 08:49 Q8H PRN Anxiety Calcium Acetate 667 mg 11/27/16 17:00 11/28/16 12:17 Phoslo PO 667 mg TIDCC MARYLOU Administration Epoetin Mik 10,000 unit 11/13/16 09:00 11/27/16 10:29 Procrit IV 10,000 unit MWF MARYLOU Administration Famotidine 20 mg 11/27/16 10:00 11/28/16 09:42 Pepcid PO 20 mg DAILY MARYLOU Administration Folic Acid 1 mg 11/19/16 10:00 11/28/16 09:43 Folic Acid PO 1 mg DAILY MARYLOU Administration Heparin Sodium (Porcine) 5,000 units 11/27/16 22:00 11/28/16 09:43 Heparin SC 5,000 units Q12 MARYLOU Administration Gentamicin Sulfate/Sodium Chloride 80 mg in 100 mls @ 100 mls/hr 11/13/16 09: 00 11/27/16 12:48 Gentamicin Iv 80 Mg Premix IVPB 100 mls/hr F MARYLOU Administration Cefepime HCl 1 gm in 50 mls @ 100 mls/hr 11/17/16 18:00 11/27/16 17:54 Maxipime Iv 1 Gm Premix IVPB 100 mls/hr Q24H MARYLOU Administration Vancomycin HCl 1,000 mg/ 250 mls @ 166.6 mls/hr 11/25/16 09:00 11/27/16 12:49 Sodium Chloride IVPB 166.6 mls/hr [facility] [place] Insulin Human Regular 0 unit 11/27/16 11:30 11/28/16 12:17 Novolin R SC 1 unit ACHS [facility] Administration Protocol Lactobacillus Acidophilus 1 cap 11/16/16 18:00 11/28/16 09:43 Bacid Acidophilus PO 1 cap BID MARYLOU Administration Losartan Potassium 100 mg 11/22/16 12:30 11/28/16 09:43 Cozaar PO 100 mg DAILY MARYLOU Administration Nitroglycerin 0.4 mg 11/12/16 18:57 Nitrostat Sl Tab SL Q15M PRN chest pain Polyethylene Glycol 17 gm 11/28/16 10:00 11/28/16 09:43 Miralax PO 17 gm DAILY MARYLOU Administration Senna/Docusate Sodium 2 tab 11/28/16 09:00 11/28/16 12:18 Senokot S 50 Mg-8.6 Mg PO Not Given Q12H MARYLOU - Patient Studies Lab Studies: Microbiology Studies 11/25/16 15:00 Gram Stain - Final Abdomen Wound Culture - Final Enterococcus Faecium 11/25/16 17:00 MRSA Culture (Admit) - Final Naris MRSA NOT DETECTED Lab Studies 11/28/16 11/28/16 11/28/16 Range/Units 11:41 07:16 06:03 WBC (4.8-10.8) K/uL RBC (3.80-5.20) Mil/uL Hgb (11.0-16.0) g/dL Hct (34.0-47.0) % MCV (81.0-99.0) fL MCH (27.0-31.0) pg MCHC (33.0-37.0) g/dL RDW (11.5-14.5) % Plt Count (130-400) K/uL MPV (7.2-11.7) fL Neut % (Auto) (50.0-75.0) % Lymph % (Auto) (20.0-40.0) % Sierra % (Auto) (0.0-10.0) % Eos % (Auto) (0.0-4.0) % Baso % (Auto) (0.0-2.0) % Neut # (1.8-7.0) K/uL Lymph # (1.0-4.3) K/uL Sierra # (0.0-0.8) K/uL Eos # (0.0-0.7) K/uL Baso # (0.0-0.2) K/uL PT 11.5 (9.7-12.2) SECONDS INR 1.0 APTT 40 H (21-34) SECONDS Sodium (132-148) mmol/L Potassium (3.6-5.2) mmol/L Chloride (98-107) mmol/L Carbon Dioxide (22-30) mmol/L Anion Gap (10-20) BUN (7-17) mg/dL Creatinine (0.7-1.2) MG/DL Est GFR ( Amer) Est GFR (Non-Af Amer) POC Glucose (mg/dL) 157 H 147 H (65-110) mg/dL Random Glucose (65-105) mg/dL Calcium (8.6-10.4) mg/dl Phosphorus (2.5-4.5) mg/dL Magnesium (1.6-2.3) mg/dL Total Bilirubin (0.2-1.3) mg/dL AST (14-36) U/L ALT (9-52) U/L Alkaline Phosphatase (38-126) U/L Total Protein (6.3-8.3) g/dL Albumin (3.5-5.0) g/dL Globulin (2.2-3.9) gm/dL Albumin/Globulin Ratio (1.0-2.1) 11/28/16 11/28/16 11/27/16 Range/Units 06:03 06:03 21:12 WBC 6.9 (4.8-10.8) K/uL RBC 3.11 L (3.80-5.20) Mil/uL Hgb 8.8 L (11.0-16.0) g/dL Hct 27.2 L (34.0-47.0) % MCV 87.4 (81.0-99.0) fL MCH 28.3 (27.0-31.0) pg MCHC 32.4 L (33.0-37.0) g/dL RDW 15.3 H (11.5-14.5) % Plt Count 185 (130-400) K/uL MPV 8.2 (7.2-11.7) fL Neut % (Auto) 72.9 (50.0-75.0) % Lymph % (Auto) 11.5 L (20.0-40.0) % Sierra % (Auto) 12.6 H (0.0-10.0) % Eos % (Auto) 2.7 (0.0-4.0) % Baso % (Auto) 0.3 (0.0-2.0) % Neut # 5.0 (1.8-7.0) K/uL Lymph # 0.8 L (1.0-4.3) K/uL Sierra # 0.9 H (0.0-0.8) K/uL Eos # 0.2 (0.0-0.7) K/uL Baso # 0.0 (0.0-0.2) K/uL PT (9.7-12.2) SECONDS INR APTT (21-34) SECONDS Sodium 131 L (132-148) mmol/L Potassium 3.6 (3.6-5.2) mmol/L Chloride 94 L (98-107) mmol/L Carbon Dioxide 28 (22-30) mmol/L Anion Gap 13 (10-20) BUN 26 H (7-17) mg/dL Creatinine 3.9 H (0.7-1.2) MG/DL Est GFR ( Amer) 14 Est GFR (Non-Af Amer) 11 POC Glucose (mg/dL) 164 H (65-110) mg/dL Random Glucose 130 H (65-105) mg/dL Calcium 9.0 (8.6-10.4) mg/dl Phosphorus 5.7 H (2.5-4.5) mg/dL Magnesium 1.9 (1.6-2.3) mg/dL Total Bilirubin 0.8 (0.2-1.3) mg/dL AST 54 H D (14-36) U/L ALT 37 (9-52) U/L Alkaline Phosphatase 144 H (38-126) U/L Total Protein 7.2 (6.3-8.3) g/dL Albumin 2.6 L (3.5-5.0) g/dL Globulin 4.7 H (2.2-3.9) gm/dL Albumin/Globulin Ratio 0.6 L (1.0-2.1) 11/27/16 Range/Units 16:09 WBC (4.8-10.8) K/uL RBC (3.80-5.20) Mil/uL Hgb (11.0-16.0) g/dL Hct (34.0-47.0) % MCV (81.0-99.0) fL MCH (27.0-31.0) pg MCHC (33.0-37.0) g/dL RDW (11.5-14.5) % Plt Count (130-400) K/uL MPV (7.2-11.7) fL Neut % (Auto) (50.0-75.0) % Lymph % (Auto) (20.0-40.0) % Sierra % (Auto) (0.0-10.0) % Eos % (Auto) (0.0-4.0) % Baso % (Auto) (0.0-2.0) % Neut # (1.8-7.0) K/uL Lymph # (1.0-4.3) K/uL Sierra # (0.0-0.8) K/uL Eos # (0.0-0.7) K/uL Baso # (0.0-0.2) K/uL PT (9.7-12.2) SECONDS INR APTT (21-34) SECONDS Sodium (132-148) mmol/L Potassium (3.6-5.2) mmol/L Chloride (98-107) mmol/L Carbon Dioxide (22-30) mmol/L Anion Gap (10-20) BUN (7-17) mg/dL Creatinine (0.7-1.2) MG/DL Est GFR ( Amer) Est GFR (Non-Af Amer) POC Glucose (mg/dL) 137 H (65-110) mg/dL Random Glucose (65-105) mg/dL Calcium (8.6-10.4) mg/dl Phosphorus (2.5-4.5) mg/dL Magnesium (1.6-2.3) mg/dL Total Bilirubin (0.2-1.3) mg/dL AST (14-36) U/L ALT (9-52) U/L Alkaline Phosphatase (38-126) U/L Total Protein (6.3-8.3) g/dL Albumin (3.5-5.0) g/dL Globulin (2.2-3.9) gm/dL Albumin/Globulin Ratio (1.0-2.1) Laboratory Results - last 24 hr 11/27/16 11/27/16 11/28/16 16:09 21:12 06:03 WBC 6.9 RBC 3.11 L Hgb 8.8 L Hct 27.2 L MCV 87.4 MCH 28.3 MCHC 32.4 L RDW 15.3 H Plt Count 185 MPV 8.2 Neut % (Auto) 72.9 Lymph % (Auto) 11.5 L Sierra % (Auto) 12.6 H Eos % (Auto) 2.7 Baso % (Auto) 0.3 Neut # 5.0 Lymph # 0.8 L Sierra # 0.9 H Eos # 0.2 Baso # 0.0 PT INR APTT Sodium Potassium Chloride Carbon Dioxide Anion Gap BUN Creatinine Est GFR ( Amer) Est GFR (Non-Af Amer) POC Glucose (mg/dL) 137 H 164 H Random Glucose Calcium Phosphorus Magnesium Total Bilirubin AST ALT Alkaline Phosphatase Total Protein Albumin Globulin Albumin/Globulin Ratio 11/28/16 11/28/16 11/28/16 06:03 06:03 07:16 WBC RBC Hgb Hct MCV MCH MCHC RDW Plt Count MPV Neut % (Auto) Lymph % (Auto) Sierra % (Auto) Eos % (Auto) Baso % (Auto) Neut # Lymph # Sierra # Eos # Baso # PT 11.5 INR 1.0 APTT 40 H Sodium 131 L Potassium 3.6 Chloride 94 L Carbon Dioxide 28 Anion Gap 13 BUN 26 H Creatinine 3.9 H Est GFR ( Amer) 14 Est GFR (Non-Af Amer) 11 POC Glucose (mg/dL) 147 H Random Glucose 130 H Calcium 9.0 Phosphorus 5.7 H Magnesium 1.9 Total Bilirubin 0.8 AST 54 H D ALT 37 Alkaline Phosphatase 144 H Total Protein 7.2 Albumin 2.6 L Globulin 4.7 H Albumin/Globulin Ratio 0.6 L 11/28/16 11:41 WBC RBC Hgb Hct MCV MCH MCHC RDW Plt Count MPV Neut % (Auto) Lymph % (Auto) Sierra % (Auto) Eos % (Auto) Baso % (Auto) Neut # Lymph # Sierra # Eos # Baso # PT INR APTT Sodium Potassium Chloride Carbon Dioxide Anion Gap BUN Creatinine Est GFR ( Amer) Est GFR (Non-Af Amer) POC Glucose (mg/dL) 157 H Random Glucose Calcium Phosphorus Magnesium Total Bilirubin AST ALT Alkaline Phosphatase Total Protein Albumin Globulin Albumin/Globulin Ratio Fingerstick Blood Sugar Results: 157 Review of Systems - Constitutional Constitutional: absent: Fever, Chills - EENT Eyes: absent: Blind Spots, Blurred Vision Ears: absent: Decreased Hearing, Tinnitus Nose/Mouth/Throat: UNREMARKABLE. absent: Nose Pain, Facial Pain, Neck Pain - Cardiovascular Cardiovascular: absent: Chest Pain, Edema, Orthopnea, Palpitations, Rapid Heart Rate - Respiratory Respiratory: absent: Cough, Hemoptysis, Dyspnea on Exertion - Gastrointestinal Gastrointestinal: Abdominal Pain. absent: Diarrhea, Nausea, Vomiting - Genitourinary Genitourinary: absent: Change in Urinary Stream, Difficulty Urinating - Musculoskeletal Musculoskeletal: absent: Muscle Weakness, Stiffness, Tingling - Integumentary Integumentary: absent: Lesions, Rash, Wounds - Neurological Neurological: absent: Syncope, Tingling, Tremor, Vertigo, Weakness - Endocrine Endocrine: absent: Cold Intolorance, Heat Intolorance, Polydipsia, Polyphagia Critical Care Progress Note - Nutrition Nutrition: Nutrition Category Date Time Status Renal Diet [DIET] Diets 11/27/16 Lunch Active Assessment/Plan (1) Intra-abdominal abscess Current Visit: Yes Status: Resolved (2) Sepsis Current Visit: Yes Status: Resolved (3) Respiratory failure requiring intubation Current Visit: Yes Status: Resolved (4) ESRD (end stage renal disease) Current Visit: Yes Status: Chronic - Assessment and Plan (Free Text) Assessment: This is a 71 yo [place] F with PMH of ESRD and HTN that was in hypercapneic respiratory failure s/p exploratory laparotomy w/ drainage of intra-abdominal abscess, secondary to over-sedation vs sepsis. Pt successfully intubated yesterday. Plan: Neuro: Anxiety: Xanax 0.25mg PO Q8 AOx3 no acute issues Cardiovascular: Tachycardic: likely 2/2 to anxiety Transfer to telemetry floor for monitoring Cardiac Stable Pulmonary: s/p intubation 11/25/16 Extubated 11/26/16 Saturating well No respiratory distress Gastrointestinal: continue renal diet dressing clean dry intact continue wound care wound management and drain management per General Surgery Team Hematology: hemodynamically stable s/p pRBC transfusions Endocrine: No acute issues Renal: ESRD -HD yesterday Dr. Wall (renal) following HD again today per Dr. Wall procrit [id number] MWF Musculoskeletal: activity as ordered OOB to chair PT/OT Genitourinary: No issues Infectious Disease: Gentamicin 80mg IV MWF Vancomycin 1g IV MWF Psych: Anxiety Xanax .25mg PO daily GI Prophylaxis: Pepcid 20mg PO Daily DVT Prophylaxis: 5000u sc q12 Case discussed with Dr. Ivone Bangura PGY1 - Date & Time Date: 11/28/16 Time: 13:13 <Rosa Choi - Last Filed: 11/28/16 16:25> CCU Objective - Vital Signs / Intake & Output Vital Signs (Last 4 hours): Vital Signs Pulse Resp BP Pulse Ox 11/28/16 13:30 16 L 16 125/69 100 11/28/16 13:00 18 L 18 137/71 100 11/28/16 12:30 16 L 16 152/66 H 100 Intake and Output (Last 8hrs): Intake & Output 05/11/17 05/11/17 05/11/17 06:59 14:59 22:59 Intake Total 118 120 Output Total 70 0 Balance 48 120 Weight 148 lb 3.2 oz Intake: Oral 118 120 Output: Drainage 70 Lower Abdomen 70 Urine 0 0 Urine, Voided 0 0 - Medications Active Medications: Active Medications Generic Name Dose Route Start Last Admin Trade Name Freq PRN Reason Stop Dose Admin Acetaminophen 650 mg 11/11/16 19:17 11/23/16 18:44 Tylenol 325mg Tab PO 650 mg Q6 PRN Administration temp > 99.5 Albuterol/Ipratropium 3 ml 11/23/16 16:00 11/28/16 12:10 Duoneb 3 Mg/0.5 Mg (3 Ml) Ud INH 3 ml RQ4 MARYLOU Administration Alprazolam 0.25 mg 11/28/16 08:48 Xanax PO 12/05/16 08:49 Q8H PRN Anxiety Calcium Acetate 667 mg 11/27/16 17:00 11/28/16 12:17 Phoslo PO 667 mg TIDCC MARYLOU Administration Epoetin Mik 10,000 unit 11/13/16 09:00 11/27/16 10:29 [place] IV 10,000 unit [facility] [place] Famotidine 20 mg 11/27/16 10:00 11/28/16 09:42 Pepcid PO 20 mg DAILY MARYLOU Administration Folic Acid 1 mg 11/19/16 10:00 11/28/16 09:43 Folic Acid PO 1 mg DAILY MARYLOU Administration Heparin Sodium (Porcine) 5,000 units 11/27/16 22:00 11/28/16 09:43 Heparin SC 5,000 units Q12 MARYLOU Administration Gentamicin Sulfate/Sodium Chloride 80 mg in 100 mls @ 100 mls/hr 11/13/16 09: 00 11/27/16 12:48 Gentamicin Iv 80 Mg Premix IVPB 100 mls/hr MWF MARYLOU Administration Cefepime HCl 1 gm in 50 mls @ 100 mls/hr 11/17/16 18:00 11/27/16 17:54 Maxipime Iv 1 Gm Premix IVPB 100 mls/hr Q24H MARYLOU Administration Vancomycin HCl 1,000 mg/ 250 mls @ 166.6 mls/hr 11/25/16 09:00 11/27/16 12:49 Sodium Chloride IVPB 166.6 mls/hr MWF MARYLOU Administration Insulin Human Regular 0 unit 11/27/16 11:30 11/28/16 12:17 Novolin R SC 1 unit ACHS MARYLOU Administration Protocol Lactobacillus Acidophilus 1 cap 11/16/16 18:00 11/28/16 09:43 Bacid Acidophilus PO 1 cap BID MARYLOU Administration Losartan Potassium 100 mg 11/22/16 12:30 11/28/16 09:43 Cozaar PO 100 mg DAILY MARYLOU Administration Nitroglycerin 0.4 mg 11/12/16 18:57 Nitrostat Sl Tab SL Q15M PRN chest pain Polyethylene Glycol 17 gm 11/28/16 10:00 11/28/16 09:43 Miralax PO 17 gm DAILY MARYLOU Administration Senna/Docusate Sodium 2 tab 11/28/16 09:00 11/28/16 12:18 Senokot S 50 Mg-8.6 Mg PO Not Given Q12H MARYLOU - Patient Studies Lab Studies: Microbiology Studies 11/25/16 15:00 Gram Stain - Final Abdomen Wound Culture - Final Enterococcus Faecium 11/25/16 17:00 MRSA Culture (Admit) - Final Naris MRSA NOT DETECTED Lab Studies 11/28/16 11/28/16 11/28/16 Range/Units 16:08 11:41 07:16 WBC (4.8-10.8) K/uL RBC (3.80-5.20) Mil/uL Hgb (11.0-16.0) g/dL Hct (34.0-47.0) % MCV (81.0-99.0) fL MCH (27.0-31.0) pg MCHC (33.0-37.0) g/dL RDW (11.5-14.5) % Plt Count (130-400) K/uL MPV (7.2-11.7) fL Neut % (Auto) (50.0-75.0) % Lymph % (Auto) (20.0-40.0) % Sierra % (Auto) (0.0-10.0) % Eos % (Auto) (0.0-4.0) % Baso % (Auto) (0.0-2.0) % Neut # (1.8-7.0) K/uL Lymph # (1.0-4.3) K/uL Sierra # (0.0-0.8) K/uL Eos # (0.0-0.7) K/uL Baso # (0.0-0.2) K/uL PT (9.7-12.2) SECONDS INR APTT (21-34) SECONDS Sodium (132-148) mmol/L Potassium (3.6-5.2) mmol/L Chloride (98-107) mmol/L Carbon Dioxide (22-30) mmol/L Anion Gap (10-20) BUN (7-17) mg/dL Creatinine (0.7-1.2) MG/DL Est GFR ( Amer) Est GFR (Non-Af Amer) POC Glucose (mg/dL) 121 H 157 H 147 H (65-110) mg/dL Random Glucose (65-105) mg/dL Calcium (8.6-10.4) mg/dl Phosphorus (2.5-4.5) mg/dL Magnesium (1.6-2.3) mg/dL Total Bilirubin (0.2-1.3) mg/dL AST (14-36) U/L ALT (9-52) U/L Alkaline Phosphatase (38-126) U/L Total Protein (6.3-8.3) g/dL Albumin (3.5-5.0) g/dL Globulin (2.2-3.9) gm/dL Albumin/Globulin Ratio (1.0-2.1) 11/28/16 11/28/16 11/28/16 Range/Units 06:03 06:03 06:03 WBC 6.9 (4.8-10.8) K/uL RBC 3.11 L (3.80-5.20) Mil/uL Hgb 8.8 L (11.0-16.0) g/dL Hct 27.2 L (34.0-47.0) % MCV 87.4 (81.0-99.0) fL MCH 28.3 (27.0-31.0) pg MCHC 32.4 L (33.0-37.0) g/dL RDW 15.3 H (11.5-14.5) % Plt Count 185 (130-400) K/uL MPV 8.2 (7.2-11.7) fL Neut % (Auto) 72.9 (50.0-75.0) % Lymph % (Auto) 11.5 L (20.0-40.0) % Sierra % (Auto) 12.6 H (0.0-10.0) % Eos % (Auto) 2.7 (0.0-4.0) % Baso % (Auto) 0.3 (0.0-2.0) % Neut # 5.0 (1.8-7.0) K/uL Lymph # 0.8 L (1.0-4.3) K/uL Sierra # 0.9 H (0.0-0.8) K/uL Eos # 0.2 (0.0-0.7) K/uL Baso # 0.0 (0.0-0.2) K/uL PT 11.5 (9.7-12.2) SECONDS INR 1.0 APTT 40 H (21-34) SECONDS Sodium 131 L (132-148) mmol/L Potassium 3.6 (3.6-5.2) mmol/L Chloride 94 L (98-107) mmol/L Carbon Dioxide 28 (22-30) mmol/L Anion Gap 13 (10-20) BUN 26 H (7-17) mg/dL Creatinine 3.9 H (0.7-1.2) MG/DL Est GFR ( Amer) 14 Est GFR (Non-Af Amer) 11 POC Glucose (mg/dL) (65-110) mg/dL Random Glucose 130 H (65-105) mg/dL Calcium 9.0 (8.6-10.4) mg/dl Phosphorus 5.7 H (2.5-4.5) mg/dL Magnesium 1.9 (1.6-2.3) mg/dL Total Bilirubin 0.8 (0.2-1.3) mg/dL AST 54 H D (14-36) U/L ALT 37 (9-52) U/L Alkaline Phosphatase 144 H (38-126) U/L Total Protein 7.2 (6.3-8.3) g/dL Albumin 2.6 L (3.5-5.0) g/dL Globulin 4.7 H (2.2-3.9) gm/dL Albumin/Globulin Ratio 0.6 L (1.0-2.1) 11/27/16 Range/Units 21:12 WBC (4.8-10.8) K/uL RBC (3.80-5.20) Mil/uL Hgb (11.0-16.0) g/dL Hct (34.0-47.0) % MCV (81.0-99.0) fL MCH (27.0-31.0) pg MCHC (33.0-37.0) g/dL RDW (11.5-14.5) % Plt Count (130-400) K/uL MPV (7.2-11.7) fL Neut % (Auto) (50.0-75.0) % Lymph % (Auto) (20.0-40.0) % Sierra % (Auto) (0.0-10.0) % Eos % (Auto) (0.0-4.0) % Baso % (Auto) (0.0-2.0) % Neut # (1.8-7.0) K/uL Lymph # (1.0-4.3) K/uL Sierra # (0.0-0.8) K/uL Eos # (0.0-0.7) K/uL Baso # (0.0-0.2) K/uL PT (9.7-12.2) SECONDS INR APTT (21-34) SECONDS Sodium (132-148) mmol/L Potassium (3.6-5.2) mmol/L Chloride (98-107) mmol/L Carbon Dioxide (22-30) mmol/L Anion Gap (10-20) BUN (7-17) mg/dL Creatinine (0.7-1.2) MG/DL Est GFR ( Amer) Est GFR (Non-Af Amer) POC Glucose (mg/dL) 164 H (65-110) mg/dL Random Glucose (65-105) mg/dL Calcium (8.6-10.4) mg/dl Phosphorus (2.5-4.5) mg/dL Magnesium (1.6-2.3) mg/dL Total Bilirubin (0.2-1.3) mg/dL AST (14-36) U/L ALT (9-52) U/L Alkaline Phosphatase (38-126) U/L Total Protein (6.3-8.3) g/dL Albumin (3.5-5.0) g/dL Globulin (2.2-3.9) gm/dL Albumin/Globulin Ratio (1.0-2.1) Laboratory Results - last 24 hr 11/27/16 11/28/16 11/28/16 21:12 06:03 06:03 WBC 6.9 RBC 3.11 L Hgb 8.8 L Hct 27.2 L MCV 87.4 MCH 28.3 MCHC 32.4 L RDW 15.3 H Plt Count 185 MPV 8.2 Neut % (Auto) 72.9 Lymph % (Auto) 11.5 L Sierra % (Auto) 12.6 H Eos % (Auto) 2.7 Baso % (Auto) 0.3 Neut # 5.0 Lymph # 0.8 L Sierra # 0.9 H Eos # 0.2 Baso # 0.0 PT INR APTT Sodium 131 L Potassium 3.6 Chloride 94 L Carbon Dioxide 28 Anion Gap 13 BUN 26 H Creatinine 3.9 H Est GFR ( Amer) 14 Est GFR (Non-Af Amer) 11 POC Glucose (mg/dL) 164 H Random Glucose 130 H Calcium 9.0 Phosphorus 5.7 H Magnesium 1.9 Total Bilirubin 0.8 AST 54 H D ALT 37 Alkaline Phosphatase 144 H Total Protein 7.2 Albumin 2.6 L Globulin 4.7 H Albumin/Globulin Ratio 0.6 L 11/28/16 11/28/16 11/28/16 06:03 07:16 11:41 WBC RBC Hgb Hct MCV MCH MCHC RDW Plt Count MPV Neut % (Auto) Lymph % (Auto) Sierra % (Auto) Eos % (Auto) Baso % (Auto) Neut # Lymph # Sierra # Eos # Baso # PT 11.5 INR 1.0 APTT 40 H Sodium Potassium Chloride Carbon Dioxide Anion Gap BUN Creatinine Est GFR ( Amer) Est GFR (Non-Af Amer) POC Glucose (mg/dL) 147 H 157 H Random Glucose Calcium Phosphorus Magnesium Total Bilirubin AST ALT Alkaline Phosphatase Total Protein Albumin Globulin Albumin/Globulin Ratio 11/28/16 16:08 WBC RBC Hgb Hct MCV MCH MCHC RDW Plt Count MPV Neut % (Auto) Lymph % (Auto) Sierra % (Auto) Eos % (Auto) Baso % (Auto) Neut # Lymph # Sierra # Eos # Baso # PT INR APTT Sodium Potassium Chloride Carbon Dioxide Anion Gap BUN Creatinine Est GFR ( Amer) Est GFR (Non-Af Amer) POC Glucose (mg/dL) 121 H Random Glucose Calcium Phosphorus Magnesium Total Bilirubin AST ALT Alkaline Phosphatase Total Protein Albumin Globulin Albumin/Globulin Ratio Critical Care Progress Note - Nutrition Nutrition: Nutrition Category Date Time Status Renal Diet [DIET] Diets 11/27/16 Lunch Active Attending/Attestation - Attestation I have personally seen and examined this patient.: Yes I have fully participated in the care of the patient.: Yes I have reviewed all pertinent clinical information: Yes Notes (Text): 11/28/16 16:17 Patient seen and examined in the morning. Agree with resident's note except for any discrepancies below noted. The patient is doing well after drainage of intrabdominal abscess on 11/25, 100 mL in past 24 hours of [id number] sanguinolent milky drainage. Had dialysis yesterday, dopamine drip d/c yesterday. Today looks comfortable, but has bilateral rales, more in the left side, additional dialysis was done today. Anxious at times, xanax 0.25 mg q8h has not moved bowels, add miralax and senokot. transfer to the floors
--- NOTE | 2016-11-28 18:03 | CP.PCM.PN ---
Subjective - Date & Time of Evaluation Date of Evaluation: 11/28/16 Time of Evaluation: 11:30 - Subjective Subjective: Patient seen and examined. Sitting comfortably in no acute distress Denies cough, denies fever or chills, denies chest pain Objective - Vital Signs/Intake and Output Vital Signs (last 24 hours): Temp Pulse Resp BP Pulse Ox 98 F 96 H 19 150/83 100 11/28/16 16:00 11/28/16 16:00 11/28/16 16:00 11/28/16 15:49 11/28/16 16:00 Intake and Output: 11/28/16 11/28/16 06:59 18:59 Intake Total 118 320 Output Total 70 50 Balance 48 270 - Medications Medications: Current Medications Acetaminophen (Tylenol 325mg Tab) 650 mg PO Q6 PRN PRN Reason: temp > 99.5 Last Admin: 11/23/16 18:44 Dose: 650 mg Alprazolam (Xanax) 0.25 mg PO Q8H PRN PRN Reason: Anxiety Stop: 12/05/16 08:49 Calcium Acetate (Phoslo) 667 mg PO TIDCC [facility] Last Admin: 11/28/16 16:59 Dose: Not Given Epoetin Mik (Procrit) 10,000 unit IV MWF [facility] Last Admin: 11/27/16 10:29 Dose: 10,000 unit Famotidine (Pepcid) 20 mg PO DAILY [facility] Last Admin: 11/28/16 09:42 Dose: 20 mg Folic Acid (Folic Acid) 1 mg PO DAILY [facility] Last Admin: 11/28/16 09:43 Dose: 1 mg Heparin Sodium (Porcine) (Heparin) 5,000 units SC Q12 [facility] Last Admin: 11/28/16 09:43 Dose: 5,000 units Gentamicin Sulfate/Sodium Chloride (Gentamicin Iv 80 Mg Premix) 80 mg in 100 mls @ 100 mls/hr IVPB MWF [facility] Last Admin: 11/27/16 12:48 Dose: 100 mls/hr Cefepime HCl (Maxipime Iv 1 Gm Premix) 1 gm in 50 mls @ 100 mls/hr IVPB Q24H [facility] Last Admin: 11/27/16 17:54 Dose: 100 mls/hr Vancomycin HCl 1,000 mg/ (Sodium Chloride) 250 mls @ 166.6 mls/hr IVPB MWF [facility] Last Admin: 11/27/16 12:49 Dose: 166.6 mls/hr Insulin Human Regular (Novolin R) 0 unit SC ACHS [facility] PRN Reason: Protocol Last Admin: 11/28/16 16:42 Dose: Not Given Lactobacillus Acidophilus (Bacid Acidophilus) 1 cap PO BID [facility] Last Admin: 11/28/16 09:43 Dose: 1 cap Losartan Potassium (Cozaar) 100 mg PO DAILY [facility] Last Admin: 11/28/16 09:43 Dose: 100 mg Nitroglycerin (Nitrostat Sl Tab) 0.4 mg SL Q15M PRN PRN Reason: chest pain Polyethylene Glycol (Miralax) 17 gm PO DAILY [facility] Last Admin: 11/28/16 09:43 Dose: 17 gm Senna/Docusate Sodium (Senokot S 50 Mg-8.6 Mg) 2 tab PO Q12H [facility] Last Admin: 11/28/16 12:18 Dose: Not Given - Labs Labs: 11/28/16 06:03 11/28/16 06:03 PT 11.5 SECONDS (9.7-12.2) 11/28/16 06:03 INR 1.0 11/28/16 06:03 APTT 40 SECONDS (21-34) H 11/28/16 06:03 - Head Exam Head Exam: ATRAUMATIC, NORMOCEPHALIC - Eye Exam Eye Exam: Normal appearance - ENT Exam ENT Exam: Mucous Membranes Moist - Neck Exam Neck Exam: Normal Inspection - Respiratory Exam Respiratory Exam: Decreased Breath Sounds - Cardiovascular Exam Cardiovascular Exam: REGULAR RHYTHM - GI/Abdominal Exam GI & Abdominal Exam: Soft, Normal Bowel Sounds Assessment and Plan (1) Dyspnea Status: Acute (2) Intra-abdominal abscess Status: Resolved
[2016-11-28] MEDS: Cefepime IV 1 gm in Dextrose 1 GM/50 ML BAG IVPB SCH (18:08)
--- NOTE | 2016-11-28 19:07 | CP.PCM.PN ---
Subjective - Date & Time of Evaluation Date of Evaluation: 11/28/16 Time of Evaluation: 09:00 - Subjective Subjective: events noted iv rx renewed Objective - Vital Signs/Intake and Output Vital Signs (last 24 hours): Temp Pulse Resp BP Pulse Ox 98 F 105 H 21 163/82 H 100 11/28/16 16:00 11/28/16 18:00 11/28/16 18:00 11/28/16 17:51 11/28/16 18:00 Intake and Output: 11/28/16 11/29/16 18:59 06:59 Intake Total 320 Output Total 50 Balance 270 - Medications Medications: Current Medications Acetaminophen (Tylenol 325mg Tab) 650 mg PO Q6 PRN PRN Reason: temp > 99.5 Last Admin: 11/23/16 18:44 Dose: 650 mg Alprazolam (Xanax) 0.25 mg PO Q8H PRN PRN Reason: Anxiety Stop: 12/05/16 08:49 Calcium Acetate (Phoslo) 667 mg PO TIDCC [facility] Last Admin: 11/28/16 16:59 Dose: Not Given Epoetin Mik (Procrit) 10,000 unit IV [facility] Last Admin: 11/27/16 10:29 Dose: 10,000 unit Famotidine (Pepcid) 20 mg PO DAILY [facility] Last Admin: 11/28/16 09:42 Dose: 20 mg Folic Acid (Folic Acid) 1 mg PO DAILY [facility] Last Admin: 11/28/16 09:43 Dose: 1 mg Heparin Sodium (Porcine) (Heparin) 5,000 units SC Q12 [facility] Last Admin: 11/28/16 09:43 Dose: 5,000 units Gentamicin Sulfate/Sodium Chloride (Gentamicin Iv 80 Mg Premix) 80 mg in 100 mls @ 100 mls/hr IVPB [facility] Last Admin: 11/27/16 12:48 Dose: 100 mls/hr Cefepime HCl (Maxipime Iv 1 Gm Premix) 1 gm in 50 mls @ 100 mls/hr IVPB Q24H [facility] Last Admin: 11/28/16 18:08 Dose: 100 mls/hr Vancomycin HCl 1,000 mg/ (Sodium Chloride) 250 mls @ 166.6 mls/hr IVPB [facility] Last Admin: 11/27/16 12:49 Dose: 166.6 mls/hr Insulin Human Regular (Novolin R) 0 unit SC ACHS [facility] PRN Reason: Protocol Last Admin: 11/28/16 16:42 Dose: Not Given Lactobacillus Acidophilus (Bacid Acidophilus) 1 cap PO BID [facility] Last Admin: 11/28/16 18:09 Dose: 1 cap Losartan Potassium (Cozaar) 100 mg PO DAILY [facility] Last Admin: 11/28/16 09:43 Dose: 100 mg Nitroglycerin (Nitrostat Sl Tab) 0.4 mg SL Q15M PRN PRN Reason: chest pain Polyethylene Glycol (Miralax) 17 gm PO DAILY [facility] Last Admin: 11/28/16 09:43 Dose: 17 gm Senna/Docusate Sodium (Senokot S 50 Mg-8.6 Mg) 2 tab PO Q12H [facility] Last Admin: 11/28/16 12:18 Dose: Not Given - Labs Labs: 11/28/16 06:03 11/28/16 06:03 PT 11.5 SECONDS (9.7-12.2) 11/28/16 06:03 INR 1.0 11/28/16 06:03 APTT 40 SECONDS (21-34) H 11/28/16 06:03 - Constitutional Appears: Non-toxic, Chronically Ill - Head Exam Head Exam: NORMOCEPHALIC - Eye Exam Eye Exam: Normal appearance, PERRL. absent: Scleral icterus - ENT Exam ENT Exam: Mucous Membranes Dry, Normal External Ear Exam - Neck Exam Neck Exam: absent: Thyromegaly - Respiratory Exam Respiratory Exam: Decreased Breath Sounds, Rhonchi - Cardiovascular Exam Cardiovascular Exam: REGULAR RHYTHM - GI/Abdominal Exam GI & Abdominal Exam: Distended, Soft - Rectal Exam Rectal Exam: Deferred - Exam Exam: NORMAL INSPECTION - Extremities Exam Extremities Exam: absent: Pedal Edema - Back Exam Back Exam: absent: CVA tenderness (L), CVA tenderness (R) - Neurological Exam Neurological Exam: Alert, Awake Assessment and Plan (1) ESRD (end stage renal disease) Status: Chronic (2) Intra-abdominal abscess Status: Resolved - Assessment and Plan (Free Text) Assessment: + enterococcus from wound iv rx in progress
--- NOTE | 2016-11-28 19:17 | CP.PCM.PN ---
Subjective - Date & Time of Evaluation Date of Evaluation: 11/28/16 Time of Evaluation: 21:00 - Subjective Subjective: Pt did well overnight, no complaints. Had started eating. Noted to be tachycardic on rounds by Dental Instructor on duty today. Pt denies pain nor abdom pain 2ndry to constipation. Tenderness reported at incision sites but healing ok. Pt is anemic with hgb noted in the 8s on my rounds last night and could explain tachycardia. Pt's dialysis schedule usually MWF but dialysis done today. Ordering blood transfusion of PRBC x2 units for next HD. > Tried to contact and son at phone number on face sheet. No answer. Will try again tomorrow to discuss their capability for taking care of patient or will have to send pt to [facility] for rehabilitation and pt's safety. Objective - Vital Signs/Intake and Output Vital Signs (last 24 hours): Temp Pulse Resp BP Pulse Ox 98 F 105 H 21 163/82 H 100 11/28/16 16:00 11/28/16 18:00 11/28/16 18:00 11/28/16 17:51 11/28/16 18:00 Intake and Output: 11/28/16 11/29/16 18:59 06:59 Intake Total 320 Output Total 50 Balance 270 - Medications Medications: Current Medications Acetaminophen (Tylenol 325mg Tab) 650 mg PO Q6 PRN PRN Reason: temp > 99.5 Last Admin: 11/23/16 18:44 Dose: 650 mg Alprazolam (Xanax) 0.25 mg PO Q8H PRN PRN Reason: Anxiety Stop: 12/05/16 08:49 Calcium Acetate (Phoslo) 667 mg PO TIDCC [facility] Last Admin: 11/28/16 16:59 Dose: Not Given Epoetin Mik (Procrit) 10,000 unit IV MWF [facility] Last Admin: 11/27/16 10:29 Dose: 10,000 unit Famotidine (Pepcid) 20 mg PO DAILY [facility] Last Admin: 11/28/16 09:42 Dose: 20 mg Folic Acid (Folic Acid) 1 mg PO DAILY [facility] Last Admin: 11/28/16 09:43 Dose: 1 mg Heparin Sodium (Porcine) (Heparin) 5,000 units SC Q12 [facility] Last Admin: 11/28/16 09:43 Dose: 5,000 units Gentamicin Sulfate/Sodium Chloride (Gentamicin Iv 80 Mg Premix) 80 mg in 100 mls @ 100 mls/hr IVPB MWF [facility] Last Admin: 11/27/16 12:48 Dose: 100 mls/hr Cefepime HCl (Maxipime Iv 1 Gm Premix) 1 gm in 50 mls @ 100 mls/hr IVPB Q24H [facility] Last Admin: 11/28/16 18:08 Dose: 100 mls/hr Vancomycin HCl 1,000 mg/ (Sodium Chloride) 250 mls @ 166.6 mls/hr IVPB MWF [facility] Last Admin: 11/27/16 12:49 Dose: 166.6 mls/hr Insulin Human Regular (Novolin R) 0 unit SC ACHS [facility] PRN Reason: Protocol Last Admin: 11/28/16 16:42 Dose: Not Given Lactobacillus Acidophilus (Bacid Acidophilus) 1 cap PO BID [facility] Last Admin: 11/28/16 18:09 Dose: 1 cap Losartan Potassium (Cozaar) 100 mg PO DAILY [facility] Last Admin: 11/28/16 09:43 Dose: 100 mg Nitroglycerin (Nitrostat Sl Tab) 0.4 mg SL Q15M PRN PRN Reason: chest pain Polyethylene Glycol (Miralax) 17 gm PO DAILY [facility] Last Admin: 11/28/16 09:43 Dose: 17 gm Senna/Docusate Sodium (Senokot S 50 Mg-8.6 Mg) 2 tab PO Q12H [facility] Last Admin: 11/28/16 12:18 Dose: Not Given - Labs Labs: 11/28/16 06:03 11/28/16 06:03 PT 11.5 SECONDS (9.7-12.2) 11/28/16 06:03 INR 1.0 11/28/16 06:03 APTT 40 SECONDS (21-34) H 11/28/16 06:03 - Constitutional Appears: No Acute Distress - Head Exam Head Exam: NORMAL INSPECTION, NORMOCEPHALIC - Eye Exam Eye Exam: Normal appearance Pupil Exam: NORMAL ACCOMODATION - ENT Exam ENT Exam: Mucous Membranes Moist, Normal Exam - Neck Exam Neck Exam: Normal Inspection - Respiratory Exam Respiratory Exam: Clear to Ausculation Bilateral, Rales - Cardiovascular Exam Cardiovascular Exam: Tachycardia - GI/Abdominal Exam GI & Abdominal Exam: Normal Bowel Sounds - Rectal Exam Rectal Exam: Deferred - Neurological Exam Neurological Exam: Alert, Awake, CN II-XII Intact, Oriented x3 (time person time and place) Neuro motor strength exam: Left Upper Extremity: 4, Right Upper Extremity: 4, Left Lower Extremity: 4, Right Lower Extremity: 4 - Psychiatric Exam Psychiatric exam: Normal Affect, Normal Mood - Skin Skin Exam: Dry, Intact (warm skin, pallor not noted), Warm Assessment and Plan (1) Intra-abdominal abscess Assessment & Plan: improving Status: Resolved (2) Anemia of chronic disease Assessment & Plan: ordered blood transfusion x 2 units with next HD Status: Chronic (3) ESRD (end stage renal disease) Status: Chronic (4) Generalized weakness Status: Acute
[2016-11-29 06:10] LABS: BASO % 0.4 % (0.0-2.0); EOS # 0.2 K/uL (0.0-0.7); EOS % 3.3 % (0.0-4.0); HEMATOCRIT 26.2 % (34.0-47.0); LYMPH # 0.7 K/uL (1.0-4.3); LYMPH % 10.3 % (20.0-40.0); MEAN CELL VOLUME 87.9 fL (81.0-99.0); MEAN CORPUSCULAR HEMOGLOBIN 28.6 pg (27.0-31.0); MEAN CORPUSCULAR HGB CONC 32.5 g/dL (33.0-37.0); MEAN PLATELET VOLUME 8.3 fL (7.2-11.7); MONO # 0.9 K/uL (0.0-0.8); MONO % 13.1 % (0.0-10.0); RED CELL DISTRIBUTION WIDTH 15.1 % (11.5-14.5); WHITE BLOOD COUNT 6.8 K/uL (4.8-10.8)
[2016-11-29 06:17] LABS: CHLORIDE 95 mmol/L (98-107); POTASSIUM 3.8 mmol/L (3.6-5.2); SODIUM 132 mmol/L (132-148)
[2016-11-29 06:19] LABS: ALB/GLOB RATIO 0.7 (1.0-2.1); ALKALINE PHOSPHATASE 125 U/L (38-126); AST/SGOT 37 U/L (14-36); BILIRUBIN,TOTAL 1.2 mg/dL (0.2-1.3); CARBON DIOXIDE 30 mmol/L (22-30); GFR AFRICAN-AMERICAN 16; TOTAL PROTEIN 6.8 g/dL (6.3-8.3)
[2016-11-29 06:20] LABS: ALT/SGPT 26 U/L (9-52); BLOOD UREA NITROGEN 19 mg/dL (7-17); CALCIUM 8.6 mg/dl (8.6-10.4); GLUCOSE,RANDOM 140 mg/dL (65-105)
--- NOTE | 2016-11-29 08:29 | CP.PCM.PN ---
Subjective - Date & Time of Evaluation Date of Evaluation: 11/29/16 Time of Evaluation: 08:25 - Subjective Subjective: Surgery: Dr. Garzon Patient doing well. In ICU awake and alert and smiling. Denies pain in the abdomen. Per nursing no acute events overnight. Objective - Vital Signs/Intake and Output Vital Signs (last 24 hours): Temp Pulse Resp BP Pulse Ox 98.2 F 102 H 17 116/60 100 11/29/16 04:00 11/29/16 05:00 11/29/16 05:00 11/29/16 04:51 11/29/16 05:00 Intake and Output: 11/29/16 11/29/16 06:59 18:59 Intake Total 236 Output Total 100 Balance 136 - Medications Medications: Current Medications Acetaminophen (Tylenol 325mg Tab) 650 mg PO Q6 PRN PRN Reason: temp > 99.5 Last Admin: 11/23/16 18:44 Dose: 650 mg Albuterol/Ipratropium (Duoneb 3 Mg/0.5 Mg (3 Ml) Ud) 3 ml INH RQ6 PRN PRN Reason: Shortness of Breath Alprazolam (Xanax) 0.25 mg PO Q8H PRN PRN Reason: Anxiety Stop: 12/05/16 08:49 Last Admin: 11/28/16 21:41 Dose: 0.25 mg Calcium Acetate (Phoslo) 667 mg PO TIDCC [facility] Last Admin: 11/28/16 16:59 Dose: Not Given Epoetin Mik (Procrit) 10,000 unit IV MWF [facility] Last Admin: 11/27/16 10:29 Dose: 10,000 unit Famotidine (Pepcid) 20 mg PO DAILY [facility] Last Admin: 11/28/16 09:42 Dose: 20 mg Folic Acid (Folic Acid) 1 mg PO DAILY [facility] Last Admin: 11/28/16 09:43 Dose: 1 mg Heparin Sodium (Porcine) (Heparin) 5,000 units SC Q12 [facility] Last Admin: 11/28/16 21:42 Dose: 5,000 units Gentamicin Sulfate/Sodium Chloride (Gentamicin Iv 80 Mg Premix) 80 mg in 100 mls @ 100 mls/hr IVPB MWF [facility] Last Admin: 11/27/16 12:48 Dose: 100 mls/hr Cefepime HCl (Maxipime Iv 1 Gm Premix) 1 gm in 50 mls @ 100 mls/hr IVPB Q24H [facility] Last Admin: 11/28/16 18:08 Dose: 100 mls/hr Vancomycin HCl 1,000 mg/ (Sodium Chloride) 250 mls @ 166.6 mls/hr IVPB MWF [facility] Last Admin: 11/27/16 12:49 Dose: 166.6 mls/hr Insulin Human Regular (Novolin R) 0 unit SC BID [facility] PRN Reason: Protocol Lactobacillus Acidophilus (Bacid Acidophilus) 1 cap PO BID [facility] Last Admin: 11/28/16 18:09 Dose: 1 cap Losartan Potassium (Cozaar) 100 mg PO DAILY [facility] Last Admin: 11/28/16 09:43 Dose: 100 mg Nitroglycerin (Nitrostat Sl Tab) 0.4 mg SL Q15M PRN PRN Reason: chest pain Polyethylene Glycol (Miralax) 17 gm PO DAILY [facility] Last Admin: 11/28/16 09:43 Dose: 17 gm Senna/Docusate Sodium (Senokot S 50 Mg-8.6 Mg) 2 tab PO Q12H [facility] Last Admin: 11/28/16 21:41 Dose: 2 tab - Labs Labs: 11/29/16 06:02 11/29/16 06:02 PT 11.5 SECONDS (9.7-12.2) 11/28/16 06:03 INR 1.0 11/28/16 06:03 APTT 40 SECONDS (21-34) H 11/28/16 06:03 - Constitutional Appears: Non-toxic, No Acute Distress - Head Exam Head Exam: ATRAUMATIC, NORMOCEPHALIC - Eye Exam Eye Exam: EOMI, Normal appearance - ENT Exam ENT Exam: Mucous Membranes Moist - Respiratory Exam Respiratory Exam: NORMAL BREATHING PATTERN. absent: Respiratory Distress - Cardiovascular Exam Cardiovascular Exam: REGULAR RHYTHM. absent: Tachycardia - GI/Abdominal Exam GI & Abdominal Exam: Soft. absent: Distended, Guarding, Rigid, Tenderness, Rebound Additional comments: incisions is open with few ej on skin, draining blood tinged serous fluid - Extremities Exam Extremities Exam: absent: Calf Tenderness Assessment and Plan - Assessment and Plan (Free Text) Assessment: 71 y/o female s/p ex lap POD 4 for intra-abdominal abscess Plan: -cont silva drain and monitor output -cont abx per ID -cont diet -medical management per primary -can be transferred to floor from surgical standpoint -d/w Dr. Ryann Warner PGY1
[2016-11-29] MEDS: Docusate-Senna 50 mg-8.6 mg Tab PO SCH ×2 (09:24→21:59)
[2016-11-29] MEDS: Epoetin Alfa 10,000 unit/ml Dialysis IV SCH (09:49)
[2016-11-29] MEDS: Gentamicin 80 mg in 0.9% NS 80 MG/100 ML BAG IVPB SCH (13:20)
[2016-11-29] MEDS: Lactobacillus Acidophilus 500 MU Cap PO SCH ×2 (13:21→18:12)
[2016-11-29] MEDS: POLYETHYLENE GLYCOL 3350 17 GM/Dose PACKET PO SCH ×2 (13:21→21:59)
[2016-11-29] MEDS: (Novolin R) Insulin Human Regular 100 units/ml vial SC SCH ×2 (13:22→18:06)
--- NOTE | 2016-11-29 13:35 | CP.PCM.PN ---
Subjective - Date & Time of Evaluation Date of Evaluation: 11/29/16 Time of Evaluation: 13:33 - Subjective Subjective: s/p dialysis now- UF 2500ml less dyspnea now; eating better. had constipation earlier s/p blood transfusion 1 unit prbcs with HD on IV Abs for VSE in wound Objective - Vital Signs/Intake and Output Vital Signs (last 24 hours): Temp Pulse Resp BP Pulse Ox 97.5 F L 113 H 21 131/88 100 11/29/16 12:30 11/29/16 12:30 11/29/16 12:30 11/29/16 12:30 11/29/16 12:30 Intake and Output: 11/29/16 11/29/16 06:59 18:59 Intake Total 236 375 Output Total 100 Balance 136 375 - Medications Medications: Current Medications Acetaminophen (Tylenol 325mg Tab) 650 mg PO Q6 PRN PRN Reason: temp > 99.5 Last Admin: 11/23/16 18:44 Dose: 650 mg Albuterol/Ipratropium (Duoneb 3 Mg/0.5 Mg (3 Ml) Ud) 3 ml INH RQ6 PRN PRN Reason: Shortness of Breath Alprazolam (Xanax) 0.25 mg PO Q8H PRN PRN Reason: Anxiety Stop: 12/05/16 08:49 Last Admin: 11/28/16 21:41 Dose: 0.25 mg Calcium Acetate (Phoslo) 667 mg PO TIDCC [facility] Last Admin: 11/29/16 13:21 Dose: 667 mg Epoetin Mik (Procrit) 10,000 unit IV MWF [facility] Last Admin: 11/29/16 09:49 Dose: 10,000 unit Famotidine (Pepcid) 20 mg PO DAILY [facility] Last Admin: 11/29/16 13:21 Dose: 20 mg Folic Acid (Folic Acid) 1 mg PO DAILY [facility] Last Admin: 11/29/16 13:21 Dose: 1 mg Heparin Sodium (Porcine) (Heparin) 5,000 units SC Q12 [facility] Last Admin: 11/29/16 13:21 Dose: 5,000 units Gentamicin Sulfate/Sodium Chloride (Gentamicin Iv 80 Mg Premix) 80 mg in 100 mls @ 100 mls/hr IVPB MWF [facility] Last Admin: 11/29/16 13:20 Dose: 100 mls/hr Cefepime HCl (Maxipime Iv 1 Gm Premix) 1 gm in 50 mls @ 100 mls/hr IVPB Q24H [facility] Last Admin: 11/28/16 18:08 Dose: 100 mls/hr Vancomycin HCl 1,000 mg/ (Sodium Chloride) 250 mls @ 166.6 mls/hr IVPB MWF [facility] Last Admin: 11/29/16 13:25 Dose: 166.6 mls/hr Insulin Human Regular (Novolin R) 0 unit SC BID [facility] PRN Reason: Protocol Last Admin: 11/29/16 13:22 Dose: Not Given Lactobacillus Acidophilus (Bacid Acidophilus) 1 cap PO BID [facility] Last Admin: 11/29/16 13:21 Dose: 1 cap Losartan Potassium (Cozaar) 100 mg PO DAILY [facility] Last Admin: 11/29/16 13:21 Dose: 100 mg Nitroglycerin (Nitrostat Sl Tab) 0.4 mg SL Q15M PRN PRN Reason: chest pain Polyethylene Glycol (Miralax) 17 gm PO DAILY [facility] Last Admin: 11/29/16 13:21 Dose: 17 gm Senna/Docusate Sodium (Senokot S 50 Mg-8.6 Mg) 2 tab PO Q12H [facility] Last Admin: 11/29/16 09:24 Dose: Not Given - Labs Labs: 11/29/16 06:02 11/29/16 06:02 PT 11.5 SECONDS (9.7-12.2) 11/28/16 06:03 INR 1.0 11/28/16 06:03 APTT 40 SECONDS (21-34) H 11/28/16 06:03 - Constitutional Appears: No Acute Distress, Chronically Ill - Head Exam Head Exam: ATRAUMATIC, NORMAL INSPECTION - Eye Exam Eye Exam: EOMI, Normal appearance - Neck Exam Neck Exam: Normal Inspection. absent: Tenderness - Respiratory Exam Respiratory Exam: Rales, NORMAL BREATHING PATTERN - Cardiovascular Exam Cardiovascular Exam: REGULAR RHYTHM, +S1 - GI/Abdominal Exam GI & Abdominal Exam: Soft. absent: Tenderness - Extremities Exam Extremities Exam: Normal Inspection. 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
[2016-11-29] MEDS ORDERED: Albuterol-Ipratrop 3 mg / 0.5 (3 ml) UD INH PRN (14:00)
[2016-11-29] MEDS: Cefepime IV 1 gm in Dextrose 1 GM/50 ML BAG IVPB SCH (18:12)
--- NOTE | 2016-11-29 21:46 | CP.PCM.PN ---
Subjective - Date & Time of Evaluation Date of Evaluation: 11/29/16 Time of Evaluation: 21:46 - Subjective Subjective: Pt sleeping and woke up readily after i walked into the room. Aware of person, place and time. No evidence of confusion. > Expressed her diesire to go home after this hospitalization if I thought that she would be ok to go home. I told her that it depended on a lot of factors, especially the ability of family members to provide the care she needs and monitor her medical condition. Told her I would discuss it with her family and get back to her. In the meantime I told her her job is to get better and gain strength, and that i was counting on her stubborn streak to get through this setback. Objective - Vital Signs/Intake and Output Vital Signs (last 24 hours): Temp Pulse Resp BP Pulse Ox 97.1 F L 103 H 25 H 139/89 100 11/29/16 20:00 11/29/16 18:37 11/29/16 18:37 11/29/16 18:37 11/29/16 14:37 Intake and Output: 11/29/16 11/30/16 18:59 06:59 Intake Total 1228 0 Output Total 75 20 Balance 1153 -20 - Medications Medications: Current Medications Acetaminophen (Tylenol 325mg Tab) 650 mg PO Q6 PRN PRN Reason: temp > 99.5 Last Admin: 11/23/16 18:44 Dose: 650 mg Albuterol Sulfate (Albuterol 0.083% Inhal Angelica (2.5 Mg/3 Ml) Ud) 2.5 mg INH RQ6 MARYLOU Alprazolam (Xanax) 0.25 mg PO Q8H PRN PRN Reason: Anxiety Stop: 12/05/16 08:49 Last Admin: 11/28/16 21:41 Dose: 0.25 mg Calcium Acetate (Phoslo) 667 mg PO TIDCC [facility] Last Admin: 11/29/16 18:12 Dose: 667 mg Epoetin Mik (Procrit) 10,000 unit IV MWF [facility] Last Admin: 11/29/16 09:49 Dose: 10,000 unit Famotidine (Pepcid) 20 mg PO DAILY [facility] Last Admin: 11/29/16 13:21 Dose: 20 mg Folic Acid (Folic Acid) 1 mg PO DAILY [facility] Last Admin: 11/29/16 13:21 Dose: 1 mg Heparin Sodium (Porcine) (Heparin) 5,000 units SC Q12 [facility] Last Admin: 11/29/16 13:21 Dose: 5,000 units Gentamicin Sulfate/Sodium Chloride (Gentamicin Iv 80 Mg Premix) 80 mg in 100 mls @ 100 mls/hr IVPB MWF [facility] Last Admin: 11/29/16 13:20 Dose: 100 mls/hr Cefepime HCl (Maxipime Iv 1 Gm Premix) 1 gm in 50 mls @ 100 mls/hr IVPB Q24H [facility] Last Admin: 11/29/16 18:12 Dose: 100 mls/hr Vancomycin HCl 1,000 mg/ (Sodium Chloride) 250 mls @ 166.6 mls/hr IVPB [facility] Last Admin: 11/29/16 13:25 Dose: 166.6 mls/hr Insulin Human Regular (Novolin R) 0 unit SC BID [facility] PRN Reason: Protocol Last Admin: 11/29/16 18:06 Dose: Not Given Lactobacillus Acidophilus (Bacid Acidophilus) 1 cap PO BID [facility] Last Admin: 11/29/16 18:12 Dose: 1 cap Losartan Potassium (Cozaar) 100 mg PO DAILY [facility] Last Admin: 11/29/16 13:21 Dose: 100 mg Nitroglycerin (Nitrostat Sl Tab) 0.4 mg SL Q15M PRN PRN Reason: chest pain Polyethylene Glycol (Miralax) 17 gm PO DAILY [facility] Last Admin: 11/29/16 13:21 Dose: 17 gm Senna/Docusate Sodium (Senokot S 50 Mg-8.6 Mg) 2 tab PO Q12H [facility] Last Admin: 11/29/16 09:24 Dose: Not Given - Labs Labs: 11/29/16 06:02 11/29/16 06:02 PT 11.5 SECONDS (9.7-12.2) 11/28/16 06:03 INR 1.0 11/28/16 06:03 APTT 40 SECONDS (21-34) H 11/28/16 06:03 - Constitutional Appears: No Acute Distress - Head Exam Head Exam: NORMAL INSPECTION, NORMOCEPHALIC - Eye Exam Eye Exam: Normal appearance Pupil Exam: NORMAL ACCOMODATION, PERRL - ENT Exam ENT Exam: Mucous Membranes Moist, Normal Exam - Neck Exam Neck Exam: Full ROM, Normal Inspection - Respiratory Exam Respiratory Exam: Clear to Ausculation Bilateral - Cardiovascular Exam Cardiovascular Exam: REGULAR RHYTHM - GI/Abdominal Exam GI & Abdominal Exam: Soft, Normal Bowel Sounds Additional comments: + purulent drainage still, though decreasing. - Rectal Exam Rectal Exam: Deferred - Extremities Exam Extremities Exam: Normal Inspection - Back Exam Back Exam: NORMAL INSPECTION (no decubiti) - Neurological Exam Neurological Exam: Alert, Awake, CN II-XII Intact Neuro motor strength exam: Left Upper Extremity: 4, Right Upper Extremity: 4, Left Lower Extremity: 4, Right Lower Extremity: 4 - Psychiatric Exam Psychiatric exam: Normal Affect, Normal Mood Assessment and Plan (1) Intra-abdominal abscess Assessment & Plan: still with drainage Status: Resolved (2) Anemia of chronic disease Assessment & Plan: hgb staying stable Status: Chronic (3) ESRD (end stage renal disease) Assessment & Plan: continue, for HD tomorrow Status: Chronic (4) Generalized weakness Assessment & Plan: improving Status: Acute
[2016-11-30] MEDS: Albuterol 0.083% Inhal Sol (2.5 mg/3 mL) UD INH SCH ×4 (01:12→19:45)
--- NOTE | 2016-11-30 09:13 | CP.PCM.PN ---
Subjective - Date & Time of Evaluation Date of Evaluation: 11/30/16 Time of Evaluation: 09:11 - Subjective Subjective: Feels better, less dyspneic Stable HD 11/29 LINK drain about 120ml daily No new labs Objective - Vital Signs/Intake and Output Vital Signs (last 24 hours): Temp Pulse Resp BP Pulse Ox 98.5 F 98 H 16 132/61 100 11/30/16 04:00 11/30/16 04:00 11/30/16 04:00 11/30/16 04:00 11/30/16 04:00 Intake and Output: 11/30/16 11/30/16 06:59 18:59 Intake Total 200 100 Output Total 80 0 Balance 120 100 - Medications Medications: Current Medications Acetaminophen (Tylenol 325mg Tab) 650 mg PO Q6 PRN PRN Reason: temp > 99.5 Last Admin: 11/23/16 18:44 Dose: 650 mg Albuterol Sulfate (Albuterol 0.083% Inhal Angelica (2.5 Mg/3 Ml) Ud) 2.5 mg INH RQ6 [facility] Last Admin: 11/30/16 07:37 Dose: 2.5 mg Alprazolam (Xanax) 0.25 mg PO Q8H PRN PRN Reason: Anxiety Stop: 12/05/16 08:49 Last Admin: 11/28/16 21:41 Dose: 0.25 mg Calcium Acetate (Phoslo) 667 mg PO TIDCC [facility] Last Admin: 11/29/16 18:12 Dose: 667 mg Epoetin Mik (Procrit) 10,000 unit IV MWF [facility] Last Admin: 11/29/16 09:49 Dose: 10,000 unit Famotidine (Pepcid) 20 mg PO DAILY [facility] Last Admin: 11/29/16 13:21 Dose: 20 mg Folic Acid (Folic Acid) 1 mg PO DAILY [facility] Last Admin: 11/29/16 13:21 Dose: 1 mg Heparin Sodium (Porcine) (Heparin) 5,000 units SC Q12 [facility] Last Admin: 11/29/16 22:00 Dose: 5,000 units Gentamicin Sulfate/Sodium Chloride (Gentamicin Iv 80 Mg Premix) 80 mg in 100 mls @ 100 mls/hr IVPB [facility]WF [facility] Last Admin: 11/29/16 13:20 Dose: 100 mls/hr Cefepime HCl (Maxipime Iv 1 Gm Premix) 1 gm in 50 mls @ 100 mls/hr IVPB Q24H [facility] Last Admin: 11/29/16 18:12 Dose: 100 mls/hr Vancomycin HCl 1,000 mg/ (Sodium Chloride) 250 mls @ 166.6 mls/hr IVPB [facility] Last Admin: 11/29/16 13:25 Dose: 166.6 mls/hr Insulin Human Regular (Novolin R) 0 unit SC BID [facility] PRN Reason: Protocol Last Admin: 11/29/16 18:06 Dose: Not Given Lactobacillus Acidophilus (Bacid Acidophilus) 1 cap PO BID [facility] Last Admin: 11/29/16 18:12 Dose: 1 cap Losartan Potassium (Cozaar) 100 mg PO DAILY [facility] Last Admin: 11/29/16 13:21 Dose: 100 mg Nitroglycerin (Nitrostat Sl Tab) 0.4 mg SL Q15M PRN PRN Reason: chest pain Polyethylene Glycol (Miralax) 17 gm PO DAILY [facility] Last Admin: 11/29/16 13:21 Dose: 17 gm Polyethylene Glycol (Miralax) 17 gm PO Q12H [facility] Last Admin: 11/29/16 21:59 Dose: 17 gm Senna/Docusate Sodium (Senokot S 50 Mg-8.6 Mg) 2 tab PO Q12H [facility] Last Admin: 11/29/16 21:59 Dose: 2 tab - Labs Labs: 11/29/16 06:02 11/29/16 06:02 PT 11.5 SECONDS (9.7-12.2) 11/28/16 06:03 INR 1.0 11/28/16 06:03 APTT 40 SECONDS (21-34) H 11/28/16 06:03 - Constitutional Appears: No Acute Distress, Chronically Ill - Head Exam Head Exam: ATRAUMATIC, NORMAL INSPECTION - Eye Exam Eye Exam: EOMI, Normal appearance - Neck Exam Neck Exam: Normal Inspection. absent: Tenderness - Respiratory Exam Respiratory Exam: Rales, NORMAL BREATHING PATTERN - Cardiovascular Exam Cardiovascular Exam: REGULAR RHYTHM, +S1 - GI/Abdominal Exam GI & Abdominal Exam: Soft. absent: Tenderness - Extremities Exam Extremities Exam: Normal Inspection. absent: Pedal Edema - Neurological Exam Neurological Exam: Alert, CN II-XII Intact - Skin Skin Exam: Dry, Warm Assessment and Plan (1) Type 2 diabetes mellitus with diabetic nephropathy Status: Acute (2) ESRD (end stage renal disease) Status: Chronic (3) Intra-abdominal abscess Status: Resolved - Assessment and Plan (Free Text) Plan: Increase UF with HD IV ABs LINK/ monitoring by surgery
[2016-11-30] MEDS: Lactobacillus Acidophilus 500 MU Cap PO SCH ×2 (09:19→18:41)
[2016-11-30] MEDS: Docusate-Senna 50 mg-8.6 mg Tab PO SCH ×2 (09:20→21:00)
[2016-11-30] MEDS: POLYETHYLENE GLYCOL 3350 17 GM/Dose PACKET PO SCH ×3 (09:20→22:51)
[2016-11-30] MEDS: (Novolin R) Insulin Human Regular 100 units/ml vial SC SCH ×2 (09:22→18:07)
[2016-11-30] MEDS: Cefepime IV 1 gm in Dextrose 1 GM/50 ML BAG IVPB SCH (18:41)
--- NOTE | 2016-11-30 21:30 | CP.PCM.PN ---
Subjective - Date & Time of Evaluation Date of Evaluation: 11/30/16 Time of Evaluation: 07:00 - Subjective Subjective: SURGERY PROGRESS NOTE FOR DR. CARROLL Patient seen and examined at bedside. She denies abdominal pain. She is tolerating renal diet and denies nausea or vomiting. She has been OOB and ambulating with PT. She is passing flatus and having BMs. Objective - Vital Signs/Intake and Output Vital Signs (last 24 hours): Temp Pulse Resp BP Pulse Ox 98.3 F 100 H 18 172/96 H 99 11/30/16 20:00 11/30/16 20:00 11/30/16 20:00 11/30/16 20:00 11/30/16 20:00 Intake and Output: 11/30/16 12/01/16 18:59 06:59 Intake Total 1050 0 Output Total 30 Balance 1020 0 - Medications Medications: Current Medications Acetaminophen (Tylenol 325mg Tab) 650 mg PO Q6 PRN PRN Reason: temp > 99.5 Last Admin: 11/23/16 18:44 Dose: 650 mg Albuterol Sulfate (Albuterol 0.083% Inhal Angelica (2.5 Mg/3 Ml) Ud) 2.5 mg INH RQ6 [facility] Last Admin: 11/30/16 19:45 Dose: 2.5 mg Alprazolam (Xanax) 0.25 mg PO Q8H PRN PRN Reason: Anxiety Stop: 12/05/16 08:49 Last Admin: 11/28/16 21:41 Dose: 0.25 mg Calcium Acetate (Phoslo) 667 mg PO TIDCC [facility] Last Admin: 11/30/16 18:41 Dose: 667 mg Epoetin Mik (Procrit) 10,000 unit IV MWF [facility] Last Admin: 11/29/16 09:49 Dose: 10,000 unit Famotidine (Pepcid) 20 mg PO DAILY [facility] Last Admin: 11/30/16 09:21 Dose: 20 mg Folic Acid (Folic Acid) 1 mg PO DAILY [facility] Last Admin: 11/30/16 09:21 Dose: 1 mg Heparin Sodium (Porcine) (Heparin) 5,000 units SC Q12 [facility] Last Admin: 11/30/16 09:21 Dose: 5,000 units Gentamicin Sulfate/Sodium Chloride (Gentamicin Iv 80 Mg Premix) 80 mg in 100 mls @ 100 mls/hr IVPB MWF [facility] Last Admin: 11/29/16 13:20 Dose: 100 mls/hr Cefepime HCl (Maxipime Iv 1 Gm Premix) 1 gm in 50 mls @ 100 mls/hr IVPB Q24H [facility] Last Admin: 11/30/16 18:41 Dose: 100 mls/hr Vancomycin HCl 1,000 mg/ (Sodium Chloride) 250 mls @ 166.6 mls/hr IVPB MWF [facility] Last Admin: 11/29/16 13:25 Dose: 166.6 mls/hr Insulin Human Regular (Novolin R) 0 unit SC BID [facility] PRN Reason: Protocol Last Admin: 11/30/16 18:07 Dose: Not Given Lactobacillus Acidophilus (Bacid Acidophilus) 1 cap PO BID [facility] Last Admin: 11/30/16 18:41 Dose: 1 cap Losartan Potassium (Cozaar) 100 mg PO DAILY [facility] Last Admin: 11/30/16 09:21 Dose: 100 mg Nitroglycerin (Nitrostat Sl Tab) 0.4 mg SL Q15M PRN PRN Reason: chest pain Polyethylene Glycol (Miralax) 17 gm PO DAILY [facility] Last Admin: 11/30/16 09:20 Dose: Not Given Polyethylene Glycol (Miralax) 17 gm PO Q12H [facility] Last Admin: 11/30/16 09:20 Dose: 17 gm Senna/Docusate Sodium (Senokot S 50 Mg-8.6 Mg) 2 tab PO Q12H [facility] Last Admin: 11/30/16 09:20 Dose: 2 tab - Labs Labs: 11/29/16 06:02 11/29/16 06:02 PT 11.5 SECONDS (9.7-12.2) 11/28/16 06:03 INR 1.0 11/28/16 06:03 APTT 40 SECONDS (21-34) H 11/28/16 06:03 - Constitutional Appears: Non-toxic, No Acute Distress - Head Exam Head Exam: ATRAUMATIC, NORMAL INSPECTION - Eye Exam Eye Exam: EOMI, Normal appearance - Respiratory Exam Respiratory Exam: NORMAL BREATHING PATTERN. absent: Respiratory Distress - Cardiovascular Exam Cardiovascular Exam: +S1, +S2 - GI/Abdominal Exam GI & Abdominal Exam: Soft. absent: Distended, Firm, Guarding, Tenderness, Rebound Additional comments: Dressing clean/dry/intact - Neurological Exam Neurological Exam: Alert, Awake, Oriented x3 - Psychiatric Exam Psychiatric exam: Normal Affect, Normal Mood - Skin Skin Exam: Dry, Warm Assessment and Plan - Assessment and Plan (Free Text) Assessment: 71yo F s/p Ex lap with drainage of intra-abdominal abscess POD#5 - Chencho drain = 145cc output over past 24 hours - Passing flatus and having BMs - Tolerating diet - AMbulating with PT - Awaiting transfer to floor - Continue Abx per ID - Discussed plan with Dr. Ryann Baltazar PGY-2
[2016-12-01] MEDS: Albuterol 0.083% Inhal Sol (2.5 mg/3 mL) UD INH SCH ×4 (01:05→20:05)
[2016-12-01 06:24] LABS: HEMATOCRIT 30.2 % (34.0-47.0); MEAN CELL VOLUME 87.4 fL (81.0-99.0); MEAN CORPUSCULAR HEMOGLOBIN 28.3 pg (27.0-31.0); MEAN CORPUSCULAR HGB CONC 32.4 g/dL (33.0-37.0); MEAN PLATELET VOLUME 8.9 fL (7.2-11.7); RED CELL DISTRIBUTION WIDTH 14.6 % (11.5-14.5)
[2016-12-01] MEDS: Lactobacillus Acidophilus 500 MU Cap PO SCH ×2 (09:18→17:11)
[2016-12-01] MEDS: Docusate-Senna 50 mg-8.6 mg Tab PO SCH ×2 (09:18→21:32)
[2016-12-01] MEDS: POLYETHYLENE GLYCOL 3350 17 GM/Dose PACKET PO SCH ×3 (09:30→21:32)
[2016-12-01] MEDS: (Novolin R) Insulin Human Regular 100 units/ml vial SC SCH ×2 (09:31→17:10)
--- NOTE | 2016-12-01 13:22 | CP.PCM.PN ---
Subjective - Date & Time of Evaluation Date of Evaluation: 12/01/16 Time of Evaluation: 13:20 - Subjective Subjective: Surgery: Dr. Garzon Patient doing very well today. Reports feeling tired but otherwise feels much better. She remains in ICU awaiting transfer to floor bed. She denies f/c/n/v. She is tolerating diet. Objective - Vital Signs/Intake and Output Vital Signs (last 24 hours): Temp Pulse Resp BP Pulse Ox 97.5 F L 88 17 170/91 H 100 12/01/16 08:00 12/01/16 12:00 12/01/16 12:00 12/01/16 12:00 12/01/16 12:00 Intake and Output: 12/01/16 12/01/16 06:59 18:59 Intake Total 100 125 Output Total 35 80 Balance 65 45 - Medications Medications: Current Medications Acetaminophen (Tylenol 325mg Tab) 650 mg PO Q6 PRN PRN Reason: temp > 99.5 Last Admin: 11/23/16 18:44 Dose: 650 mg Albuterol Sulfate (Albuterol 0.083% Inhal Angelica (2.5 Mg/3 Ml) Ud) 2.5 mg INH RQ6 [facility] Last Admin: 12/01/16 08:33 Dose: 2.5 mg Alprazolam (Xanax) 0.25 mg PO Q8H PRN PRN Reason: Anxiety Stop: 12/05/16 08:49 Last Admin: 11/28/16 21:41 Dose: 0.25 mg Calcium Acetate (Phoslo) 667 mg PO TIDCC [facility] Last Admin: 12/01/16 12:07 Dose: 667 mg Epoetin Mik (Procrit) 10,000 unit IV MWF [facility] Last Admin: 11/29/16 09:49 Dose: 10,000 unit Famotidine (Pepcid) 20 mg PO DAILY [facility] Last Admin: 12/01/16 09:18 Dose: 20 mg Folic Acid (Folic Acid) 1 mg PO DAILY [facility] Last Admin: 12/01/16 09:18 Dose: 1 mg Heparin Sodium (Porcine) (Heparin) 5,000 units SC Q12 [facility] Last Admin: 12/01/16 09:19 Dose: 5,000 units Cefepime HCl (Maxipime Iv 1 Gm Premix) 1 gm in 50 mls @ 100 mls/hr IVPB Q24H [facility] Last Admin: 11/30/16 18:41 Dose: 100 mls/hr Vancomycin HCl 1,000 mg/ (Sodium Chloride) 250 mls @ 166.6 mls/hr IVPB MWF [facility] Last Admin: 11/29/16 13:25 Dose: 166.6 mls/hr Insulin Human Regular (Novolin R) 0 unit SC BID [facility] PRN Reason: Protocol Last Admin: 12/01/16 09:31 Dose: Not Given Lactobacillus Acidophilus (Bacid Acidophilus) 1 cap PO BID [facility] Last Admin: 12/01/16 09:18 Dose: 1 cap Losartan Potassium (Cozaar) 100 mg PO DAILY [facility] Last Admin: 12/01/16 09:19 Dose: 100 mg Nitroglycerin (Nitrostat Sl Tab) 0.4 mg SL Q15M PRN PRN Reason: chest pain Polyethylene Glycol (Miralax) 17 gm PO DAILY [facility] Last Admin: 12/01/16 09:30 Dose: Not Given Polyethylene Glycol (Miralax) 17 gm PO Q12H [facility] Last Admin: 12/01/16 09:30 Dose: Not Given Senna/Docusate Sodium (Senokot S 50 Mg-8.6 Mg) 2 tab PO Q12H [facility] Last Admin: 12/01/16 09:18 Dose: 2 tab - Labs Labs: 12/01/16 06:20 11/29/16 06:02 PT 11.5 SECONDS (9.7-12.2) 11/28/16 06:03 INR 1.0 11/28/16 06:03 APTT 40 SECONDS (21-34) H 11/28/16 06:03 - Constitutional Appears: Non-toxic, No Acute Distress - Head Exam Head Exam: ATRAUMATIC, NORMOCEPHALIC - Eye Exam Eye Exam: EOMI, Normal appearance - ENT Exam ENT Exam: Mucous Membranes Moist - Respiratory Exam Respiratory Exam: NORMAL BREATHING PATTERN. absent: Respiratory Distress - Cardiovascular Exam Cardiovascular Exam: REGULAR RHYTHM. absent: Tachycardia - GI/Abdominal Exam GI & Abdominal Exam: Soft. absent: Distended, Guarding, Tenderness, Rebound Additional comments: Chencho noted in LUQ w/ serous-purulent drainage. Midline wound w/ minimal staple closure. Dressing clean and dry. Assessment and Plan - Assessment and Plan (Free Text) Assessment: 71 y/o female s/p ex lap POD 6 for intra-abdominal abscess Plan: -cont chencho drain and monitor output, fluid remains purulent -cont abx per ID -cont diet -daily dressing changes -medical management per primary -can be transferred to floor from surgical standpoint -d/w Dr. Ryann Warner PGY1
--- NOTE | 2016-12-01 14:45 | CP.PCM.PN ---
Subjective - Date & Time of Evaluation Date of Evaluation: 12/01/16 Time of Evaluation: 08:00 - Subjective Subjective: IMPROVING Objective - Vital Signs/Intake and Output Vital Signs (last 24 hours): Temp Pulse Resp BP Pulse Ox 97.5 F L 88 17 170/91 H 100 12/01/16 08:00 12/01/16 12:00 12/01/16 12:00 12/01/16 12:00 12/01/16 12:00 Intake and Output: 12/01/16 12/01/16 06:59 18:59 Intake Total 100 125 Output Total 35 80 Balance 65 45 - Medications Medications: Current Medications Acetaminophen (Tylenol 325mg Tab) 650 mg PO Q6 PRN PRN Reason: temp > 99.5 Last Admin: 11/23/16 18:44 Dose: 650 mg Albuterol Sulfate (Albuterol 0.083% Inhal Angelica (2.5 Mg/3 Ml) Ud) 2.5 mg INH RQ6 [facility] Last Admin: 12/01/16 13:24 Dose: 2.5 mg Alprazolam (Xanax) 0.25 mg PO Q8H PRN PRN Reason: Anxiety Stop: 12/05/16 08:49 Last Admin: 11/28/16 21:41 Dose: 0.25 mg Calcium Acetate (Phoslo) 667 mg PO TIDCC [facility] Last Admin: 12/01/16 12:07 Dose: 667 mg Epoetin Mik (Procrit) 10,000 unit IV MWF [facility] Last Admin: 11/29/16 09:49 Dose: 10,000 unit Famotidine (Pepcid) 20 mg PO DAILY [facility] Last Admin: 12/01/16 09:18 Dose: 20 mg Folic Acid (Folic Acid) 1 mg PO DAILY [facility] Last Admin: 12/01/16 09:18 Dose: 1 mg Heparin Sodium (Porcine) (Heparin) 5,000 units SC Q12 [facility] Last Admin: 12/01/16 09:19 Dose: 5,000 units Cefepime HCl (Maxipime Iv 1 Gm Premix) 1 gm in 50 mls @ 100 mls/hr IVPB Q24H [facility] Last Admin: 11/30/16 18:41 Dose: 100 mls/hr Vancomycin HCl 1,000 mg/ (Sodium Chloride) 250 mls @ 166.6 mls/hr IVPB MWF [facility] Last Admin: 11/29/16 13:25 Dose: 166.6 mls/hr Insulin Human Regular (Novolin R) 0 unit SC BID [facility] PRN Reason: Protocol Last Admin: 12/01/16 09:31 Dose: Not Given Lactobacillus Acidophilus (Bacid Acidophilus) 1 cap PO BID [facility] Last Admin: 12/01/16 09:18 Dose: 1 cap Losartan Potassium (Cozaar) 100 mg PO DAILY [facility] Last Admin: 12/01/16 09:19 Dose: 100 mg Nitroglycerin (Nitrostat Sl Tab) 0.4 mg SL Q15M PRN PRN Reason: chest pain Polyethylene Glycol (Miralax) 17 gm PO DAILY [facility] Last Admin: 12/01/16 09:30 Dose: Not Given Polyethylene Glycol (Miralax) 17 gm PO Q12H [facility] Last Admin: 12/01/16 09:30 Dose: Not Given Senna/Docusate Sodium (Senokot S 50 Mg-8.6 Mg) 2 tab PO Q12H [facility] Last Admin: 12/01/16 09:18 Dose: 2 tab - Labs Labs: 12/01/16 06:20 11/29/16 06:02 PT 11.5 SECONDS (9.7-12.2) 11/28/16 06:03 INR 1.0 11/28/16 06:03 APTT 40 SECONDS (21-34) H 11/28/16 06:03 - Constitutional Appears: Non-toxic, Cachectic, Chronically Ill - Head Exam Head Exam: NORMOCEPHALIC - Eye Exam Eye Exam: PERRL. absent: Scleral icterus - ENT Exam ENT Exam: Mucous Membranes Dry - Neck Exam Neck Exam: absent: Lymphadenopathy - Respiratory Exam Respiratory Exam: Decreased Breath Sounds, Rhonchi - Cardiovascular Exam Cardiovascular Exam: REGULAR RHYTHM, +S1, +S2 - GI/Abdominal Exam GI & Abdominal Exam: Distended, Soft, Tenderness - Rectal Exam Rectal Exam: Deferred - Exam Exam: NORMAL INSPECTION - Extremities Exam Extremities Exam: absent: Pedal Edema - Back Exam Back Exam: absent: CVA tenderness (L), CVA tenderness (R), paraspinal tenderness - Neurological Exam Neurological Exam: Alert, Awake, Oriented x3 - Psychiatric Exam Psychiatric exam: Normal Mood - Skin Skin Exam: Dry Assessment and Plan (1) ESRD (end stage renal disease) Status: Chronic (2) Intra-abdominal abscess Status: Resolved
[2016-12-01] MEDS: Cefepime IV 1 gm in Dextrose 1 GM/50 ML BAG IVPB SCH (17:11)
[2016-12-02] MEDS: Albuterol 0.083% Inhal Sol (2.5 mg/3 mL) UD INH SCH ×4 (01:19→19:39)
--- NOTE | 2016-12-02 02:54 | CP.PCM.PN ---
Subjective - Date & Time of Evaluation Date of Evaluation: 11/30/16 Time of Evaluation: 19:15 - Subjective Subjective: LATE ENTRY FOR 11/30/16: Pt doing well, no new complaints. Still with drainage from LINK drain, purulent. No fevers or chills, no changes in mentation. Discussed with pt what family said regarding going home directly and not going to rehab anymore. We all knew that pt can be quite stubborn, and will have her way if she puts her mind to it. Informed pt that since it was only she and her who lives in and live independently, her may not have the knowledge nor the strength to keep up with the demands of her care, hence, they suggested that she go to subacute rehab at least for 1-2 weeks until she is not so wobbly anymore when she stands up. Explained to pt this is the normal course when one has been hospitalized for a long time, and in her case, almost 2 months. Pt accepted this with equanimity and was realistic in her expectations. Pt agreed to go to [facility] [place] where she had been accepted more than a week ago, with a condition that she will discuss with SW/Case Management on Friday. Objective - Vital Signs/Intake and Output Vital Signs (last 24 hours): Temp Pulse Resp BP Pulse Ox 97.8 F 90 15 166/79 H 100 12/02/16 00:00 12/02/16 00:00 12/02/16 00:00 12/02/16 00:00 12/02/16 00:00 Intake and Output: 12/01/16 12/02/16 18:59 06:59 Intake Total 175 0 Output Total 125 0 Balance 50 0 - Medications Medications: Current Medications Acetaminophen (Tylenol 325mg Tab) 650 mg PO Q6 PRN PRN Reason: temp > 99.5 Last Admin: 11/23/16 18:44 Dose: 650 mg Albuterol Sulfate (Albuterol 0.083% Inhal Angelica (2.5 Mg/3 Ml) Ud) 2.5 mg INH RQ6 [facility] Last Admin: 12/02/16 01:19 Dose: 2.5 mg Alprazolam (Xanax) 0.25 mg PO Q8H PRN PRN Reason: Anxiety Stop: 12/05/16 08:49 Last Admin: 11/28/16 21:41 Dose: 0.25 mg Calcium Acetate (Phoslo) 667 mg PO TIDCC [facility] Last Admin: 12/01/16 17:11 Dose: 667 mg Epoetin Mik (Procrit) 10,000 unit IV MWF [facility] Last Admin: 11/29/16 09:49 Dose: 10,000 unit Famotidine (Pepcid) 20 mg PO DAILY [facility] Last Admin: 12/01/16 09:18 Dose: 20 mg Folic Acid (Folic Acid) 1 mg PO DAILY [facility] Last Admin: 12/01/16 09:18 Dose: 1 mg Heparin Sodium (Porcine) (Heparin) 5,000 units SC Q12 [facility] Last Admin: 12/01/16 21:36 Dose: 5,000 units Cefepime HCl (Maxipime Iv 1 Gm Premix) 1 gm in 50 mls @ 100 mls/hr IVPB Q24H [facility] Last Admin: 12/01/16 17:11 Dose: 100 mls/hr Vancomycin HCl 1,000 mg/ (Sodium Chloride) 250 mls @ 166.6 mls/hr IVPB MWF [facility] Last Admin: 11/29/16 13:25 Dose: 166.6 mls/hr Insulin Human Regular (Novolin R) 0 unit SC BID [facility] PRN Reason: Protocol Last Admin: 12/01/16 17:10 Dose: Not Given Lactobacillus Acidophilus (Bacid Acidophilus) 1 cap PO BID [facility] Last Admin: 12/01/16 17:11 Dose: 1 cap Losartan Potassium (Cozaar) 100 mg PO DAILY [facility] Last Admin: 12/01/16 09:19 Dose: 100 mg Nitroglycerin (Nitrostat Sl Tab) 0.4 mg SL Q15M PRN PRN Reason: chest pain Polyethylene Glycol (Miralax) 17 gm PO DAILY [facility] Last Admin: 12/01/16 09:30 Dose: Not Given Polyethylene Glycol (Miralax) 17 gm PO Q12H [facility] Last Admin: 12/01/16 21:32 Dose: Not Given Senna/Docusate Sodium (Senokot S 50 Mg-8.6 Mg) 2 tab PO Q12H [facility] Last Admin: 12/01/16 21:32 Dose: Not Given - Labs Labs: 12/01/16 06:20 11/29/16 06:02 PT 11.5 SECONDS (9.7-12.2) 11/28/16 06:03 INR 1.0 11/28/16 06:03 APTT 40 SECONDS (21-34) H 11/28/16 06:03 - Constitutional Appears: No Acute Distress (able to sit OOB to chair) - Head Exam Head Exam: ATRAUMATIC, NORMAL INSPECTION - Eye Exam Eye Exam: EOMI, Normal appearance Pupil Exam: NORMAL ACCOMODATION - ENT Exam ENT Exam: Mucous Membranes Moist, Normal Exam - Neck Exam Neck Exam: Normal Inspection - Respiratory Exam Respiratory Exam: Clear to Ausculation Bilateral, NORMAL BREATHING PATTERN - Cardiovascular Exam Cardiovascular Exam: REGULAR RHYTHM (no more tachycardia after 1 unit PBC transfusion last Friday at HD) - GI/Abdominal Exam GI & Abdominal Exam: Soft, Normal Bowel Sounds - Rectal Exam Rectal Exam: Deferred - Extremities Exam Extremities Exam: Full ROM, Normal Capillary Refill, Normal Inspection - Back Exam Back Exam: NORMAL INSPECTION - Neurological Exam Neurological Exam: Alert, Awake, CN II-XII Intact Neuro motor strength exam: Left Upper Extremity: 4, Right Upper Extremity: 4, Left Lower Extremity: 4, Right Lower Extremity: 4 - Psychiatric Exam Psychiatric exam: Normal Affect, Normal Mood - Skin Skin Exam: Dry, Intact, Normal Color, Warm Assessment and Plan (1) Intra-abdominal abscess Assessment & Plan: resolving, still with purulent drainage. continue IV abx Status: Resolved (2) Anemia of chronic disease Assessment & Plan: no drop in hgb, appears unresponsive to Procrit despite adequate iron stores. RDW N Status: Chronic (3) ESRD (end stage renal disease) Assessment & Plan: stable on HD Status: Chronic (4) Generalized weakness Assessment & Plan: needs MARIO. reconfirm placement Status: Acute
--- NOTE | 2016-12-02 03:27 | CP.PCM.PN ---
Subjective - Date & Time of Evaluation Date of Evaluation: 12/01/16 Time of Evaluation: 15:00 - Subjective Subjective: LATE ENTRY FOR 12/01/2016: Pt continues to improve, andknpows she has to get OOB in order to start gaining her motor skills. Noted occasional jerks while sitting and talking with me, though no prolonged generalized tonic-clonic movements, nor any involuntary flinging of any body part. May be muscle fibrillatory in nature or could be initial tardive dyskinesia, though pt reports that she had this before also which went away when she got stronger. Pt ready mentally for PT. Objective - Vital Signs/Intake and Output Vital Signs (last 24 hours): Temp Pulse Resp BP Pulse Ox 97.8 F 90 15 166/79 H 100 12/02/16 00:00 12/02/16 00:00 12/02/16 00:00 12/02/16 00:00 12/02/16 00:00 Intake and Output: 12/01/16 12/02/16 18:59 06:59 Intake Total 175 0 Output Total 125 0 Balance 50 0 - Medications Medications: Current Medications Acetaminophen (Tylenol 325mg Tab) 650 mg PO Q6 PRN PRN Reason: temp > 99.5 Last Admin: 11/23/16 18:44 Dose: 650 mg Albuterol Sulfate (Albuterol 0.083% Inhal Angelica (2.5 Mg/3 Ml) Ud) 2.5 mg INH RQ6 [facility] Last Admin: 12/02/16 01:19 Dose: 2.5 mg Alprazolam (Xanax) 0.25 mg PO Q8H PRN PRN Reason: Anxiety Stop: 12/05/16 08:49 Last Admin: 11/28/16 21:41 Dose: 0.25 mg Calcium Acetate (Phoslo) 667 mg PO TIDCC [facility] Last Admin: 12/01/16 17:11 Dose: 667 mg Epoetin Mik (Procrit) 10,000 unit IV MWF [facility] Last Admin: 11/29/16 09:49 Dose: 10,000 unit Famotidine (Pepcid) 20 mg PO DAILY [facility] Last Admin: 12/01/16 09:18 Dose: 20 mg Folic Acid (Folic Acid) 1 mg PO DAILY [facility] Last Admin: 12/01/16 09:18 Dose: 1 mg Heparin Sodium (Porcine) (Heparin) 5,000 units SC Q12 [facility] Last Admin: 12/01/16 21:36 Dose: 5,000 units Cefepime HCl (Maxipime Iv 1 Gm Premix) 1 gm in 50 mls @ 100 mls/hr IVPB Q24H [facility] Last Admin: 12/01/16 17:11 Dose: 100 mls/hr Vancomycin HCl 1,000 mg/ (Sodium Chloride) 250 mls @ 166.6 mls/hr IVPB MWF [facility] Last Admin: 11/29/16 13:25 Dose: 166.6 mls/hr Insulin Human Regular (Novolin R) 0 unit SC BID [facility] PRN Reason: Protocol Last Admin: 12/01/16 17:10 Dose: Not Given Lactobacillus Acidophilus (Bacid Acidophilus) 1 cap PO BID [facility] Last Admin: 12/01/16 17:11 Dose: 1 cap Losartan Potassium (Cozaar) 100 mg PO DAILY [facility] Last Admin: 12/01/16 09:19 Dose: 100 mg Nitroglycerin (Nitrostat Sl Tab) 0.4 mg SL Q15M PRN PRN Reason: chest pain Polyethylene Glycol (Miralax) 17 gm PO DAILY [facility] Last Admin: 12/01/16 09:30 Dose: Not Given Polyethylene Glycol (Miralax) 17 gm PO Q12H [facility] Last Admin: 12/01/16 21:32 Dose: Not Given Senna/Docusate Sodium (Senokot S 50 Mg-8.6 Mg) 2 tab PO Q12H [facility] Last Admin: 12/01/16 21:32 Dose: Not Given - Labs Labs: 12/01/16 06:20 11/29/16 06:02 PT 11.5 SECONDS (9.7-12.2) 11/28/16 06:03 INR 1.0 11/28/16 06:03 APTT 40 SECONDS (21-34) H 11/28/16 06:03 - Constitutional Appears: No Acute Distress - Head Exam Head Exam: NORMAL INSPECTION, NORMOCEPHALIC - Eye Exam Eye Exam: Normal appearance Pupil Exam: NORMAL ACCOMODATION - ENT Exam ENT Exam: Mucous Membranes Moist, Normal Exam - Neck Exam Neck Exam: Normal Inspection - Cardiovascular Exam Cardiovascular Exam: REGULAR RHYTHM - GI/Abdominal Exam GI & Abdominal Exam: Soft, Normal Bowel Sounds - Rectal Exam Rectal Exam: Deferred - Extremities Exam Extremities Exam: Full ROM, Normal Capillary Refill, Normal Inspection Additional comments: legs may have some atrophic component sec to disuse - Back Exam Back Exam: NORMAL INSPECTION - Psychiatric Exam Psychiatric exam: Normal Affect, Normal Mood - Skin Skin Exam: Dry, Intact Assessment and Plan (1) Intra-abdominal abscess Assessment & Plan: resolving: continue LINK drain until minimal drainage (< 10 ml) and not purulent ( ?). Otherwise will keep in place and to continue at rehab. Status: Resolved (2) Anemia of chronic disease Assessment & Plan: re-eval Procrit vs other erythropoietic agents Status: Chronic (3) ESRD (end stage renal disease) Assessment & Plan: no more peritoneal dialysis, to continue HD; need SW to confirm pt's benefits re: dialysis transport 3x/week and should pt have an emergency needing ambulance transport to hospital > also need to clarify when OPTIMAL AV fistula placement can take place, in light of pt's debility, ongoing abdominal infection, and overall immunosupppression as an ESRD pt Status: Chronic (4) Generalized weakness Assessment & Plan: for subacute rehabilitation; To CASE MANAGEMENT: Pls call all services and obtain clearance for transfer to [facility]. Various issues floating and need a definite plan before leaving for rehab: 1. length of abx 2. AV fistula placement 3. follow ups with various specialities if necessary now or at a later date 4. HD transport to [facility] on [address]: insurance coverage has ambulance transport benefits? If not, options? Status: Acute
[2016-12-02 06:33] LABS: BASO % 0.4 % (0.0-2.0); EOS # 0.4 K/uL (0.0-0.7); EOS % 4.7 % (0.0-4.0); LYMPH # 0.9 K/uL (1.0-4.3); LYMPH % 10.5 % (20.0-40.0); MEAN CELL VOLUME 86.2 fL (81.0-99.0); MEAN CORPUSCULAR HGB CONC 32.5 g/dL (33.0-37.0); MONO # 1.3 K/uL (0.0-0.8); MONO % 15.1 % (0.0-10.0); RED CELL DISTRIBUTION WIDTH 14.6 % (11.5-14.5); WHITE BLOOD COUNT 8.4 K/uL (4.8-10.8)
[2016-12-02 06:46] LABS: ALB/GLOB RATIO 0.7 (1.0-2.1); BILIRUBIN,TOTAL 0.9 mg/dL (0.2-1.3)
[2016-12-02 06:47] LABS: CALCIUM 9.5 mg/dl (8.6-10.4); MAGNESIUM 2.3 mg/dL (1.6-2.3); PHOSPHOROUS 4.5 mg/dL (2.5-4.5)
--- NOTE | 2016-12-02 08:15 | CP.PCM.PN ---
Subjective - Date & Time of Evaluation Date of Evaluation: 12/02/16 Time of Evaluation: 08:13 - Subjective Subjective: PGY1 Progress note for Dr. Garzon: Patient seen and examined. No acute events overnight per nursing. Patient still in ICU, waiting for transfer to telemetry bed. Objective - Vital Signs/Intake and Output Vital Signs (last 24 hours): Temp Pulse Resp BP Pulse Ox 98 F 96 H 12 154/79 H 97 12/02/16 04:00 12/02/16 04:00 12/02/16 04:00 12/02/16 04:00 12/02/16 04:00 Intake and Output: 12/02/16 12/02/16 06:59 18:59 Intake Total 100 Output Total 80 Balance 20 - Medications Medications: Current Medications Acetaminophen (Tylenol 325mg Tab) 650 mg PO Q6 PRN PRN Reason: temp > 99.5 Last Admin: 11/23/16 18:44 Dose: 650 mg Albuterol Sulfate (Albuterol 0.083% Inhal Angelica (2.5 Mg/3 Ml) Ud) 2.5 mg INH RQ6 [facility] Last Admin: 12/02/16 07:35 Dose: 2.5 mg Alprazolam (Xanax) 0.25 mg PO Q8H PRN PRN Reason: Anxiety Stop: 12/05/16 08:49 Last Admin: 11/28/16 21:41 Dose: 0.25 mg Calcium Acetate (Phoslo) 667 mg PO TIDCC [facility] Last Admin: 12/01/16 17:11 Dose: 667 mg Epoetin Mik (Procrit) 10,000 unit IV MWF [facility] Last Admin: 11/29/16 09:49 Dose: 10,000 unit Famotidine (Pepcid) 20 mg PO DAILY [facility] Last Admin: 12/01/16 09:18 Dose: 20 mg Folic Acid (Folic Acid) 1 mg PO DAILY [facility] Last Admin: 12/01/16 09:18 Dose: 1 mg Heparin Sodium (Porcine) (Heparin) 5,000 units SC Q12 [facility] Last Admin: 12/01/16 21:36 Dose: 5,000 units Cefepime HCl (Maxipime Iv 1 Gm Premix) 1 gm in 50 mls @ 100 mls/hr IVPB Q24H [facility] Last Admin: 12/01/16 17:11 Dose: 100 mls/hr Vancomycin HCl 1,000 mg/ (Sodium Chloride) 250 mls @ 166.6 mls/hr IVPB MWF [facility] Last Admin: 11/29/16 13:25 Dose: 166.6 mls/hr Insulin Human Regular (Novolin R) 0 unit SC BID [facility] PRN Reason: Protocol Last Admin: 12/01/16 17:10 Dose: Not Given Lactobacillus Acidophilus (Bacid Acidophilus) 1 cap PO BID [facility] Last Admin: 12/01/16 17:11 Dose: 1 cap Losartan Potassium (Cozaar) 100 mg PO DAILY [facility] Last Admin: 12/01/16 09:19 Dose: 100 mg Nitroglycerin (Nitrostat Sl Tab) 0.4 mg SL Q15M PRN PRN Reason: chest pain Polyethylene Glycol (Miralax) 17 gm PO DAILY [facility] Last Admin: 12/01/16 09:30 Dose: Not Given Polyethylene Glycol (Miralax) 17 gm PO Q12H [facility] Last Admin: 12/01/16 21:32 Dose: Not Given Senna/Docusate Sodium (Senokot S 50 Mg-8.6 Mg) 2 tab PO Q12H [facility] Last Admin: 12/01/16 21:32 Dose: Not Given - Labs Labs: 12/02/16 06:25 12/02/16 06:25 PT 11.5 SECONDS (9.7-12.2) 11/28/16 06:03 INR 1.0 11/28/16 06:03 APTT 40 SECONDS (21-34) H 11/28/16 06:03 - Constitutional Appears: Non-toxic, No Acute Distress - Head Exam Head Exam: ATRAUMATIC, NORMOCEPHALIC - Eye Exam Eye Exam: EOMI - ENT Exam ENT Exam: Mucous Membranes Moist - Respiratory Exam Respiratory Exam: NORMAL BREATHING PATTERN - GI/Abdominal Exam GI & Abdominal Exam: Soft. absent: Tenderness Additional comments: Silva drain with serous-purulent drainage, minimal drainage from midline wound - Neurological Exam Neurological Exam: Alert, Awake - Skin Skin Exam: Warm Assessment and Plan - Assessment and Plan (Free Text) Assessment: 71 year old female s/p ex lap POD 7 for intra-abdominal abscess -cont silva drain and monitor output- 80 cc o/n, fluid remains purulent -defer AVF in light of current infection -cont antibiotics per ID -continue diet -daily dressing changes -medical management per primary -can be transferred to floor from surgical standpoint -D/W Dr. Garzon
[2016-12-02] MEDS: Epoetin Alfa 10,000 unit/ml Dialysis IV SCH (10:51)
--- NOTE | 2016-12-02 10:56 | CP.PCM.PN ---
Subjective - Date & Time of Evaluation Date of Evaluation: 12/02/16 Time of Evaluation: 10:52 - Subjective Subjective: Dialysis could not be performed - cath clotted and will receive TPA now Will attempt dialysis again later- needs to be fluid removed about 3000ml More confused, lethargic. Eyes open but not verbalizing. Afebrile- on IV ABs for intraabdominal abscess LINK draining about 200ml daily Objective - Vital Signs/Intake and Output Vital Signs (last 24 hours): Temp Pulse Resp BP Pulse Ox 98 F 97 H 20 172/90 H 100 12/02/16 04:00 12/02/16 08:15 12/02/16 08:15 12/02/16 08:15 12/02/16 08:15 Intake and Output: 12/02/16 12/02/16 06:59 18:59 Intake Total 100 Output Total 80 Balance 20 - Medications Medications: Current Medications Acetaminophen (Tylenol 325mg Tab) 650 mg PO Q6 PRN PRN Reason: temp > 99.5 Last Admin: 11/23/16 18:44 Dose: 650 mg Albuterol Sulfate (Albuterol 0.083% Inhal Angelica (2.5 Mg/3 Ml) Ud) 2.5 mg INH RQ6 [facility] Last Admin: 12/02/16 07:35 Dose: 2.5 mg Alprazolam (Xanax) 0.25 mg PO Q8H PRN PRN Reason: Anxiety Stop: 12/05/16 08:49 Last Admin: 11/28/16 21:41 Dose: 0.25 mg Calcium Acetate (Phoslo) 667 mg PO TIDCC [facility] Last Admin: 12/02/16 08:32 Dose: 667 mg Epoetin Mik (Procrit) 10,000 unit IV MWF [facility] Last Admin: 11/29/16 09:49 Dose: 10,000 unit Famotidine (Pepcid) 20 mg PO DAILY [facility] Last Admin: 12/01/16 09:18 Dose: 20 mg Folic Acid (Folic Acid) 1 mg PO DAILY [facility] Last Admin: 12/01/16 09:18 Dose: 1 mg Heparin Sodium (Porcine) (Heparin) 5,000 units SC Q12 [facility] Last Admin: 12/01/16 21:36 Dose: 5,000 units Cefepime HCl (Maxipime Iv 1 Gm Premix) 1 gm in 50 mls @ 100 mls/hr IVPB Q24H [facility] Last Admin: 12/01/16 17:11 Dose: 100 mls/hr Vancomycin HCl 1,000 mg/ (Sodium Chloride) 250 mls @ 166.6 mls/hr IVPB MWF [facility] Last Admin: 11/29/16 13:25 Dose: 166.6 mls/hr Insulin Human Regular (Novolin R) 0 unit SC BID [facility] PRN Reason: Protocol Last Admin: 12/01/16 17:10 Dose: Not Given Lactobacillus Acidophilus (Bacid Acidophilus) 1 cap PO BID [facility] Last Admin: 12/01/16 17:11 Dose: 1 cap Losartan Potassium (Cozaar) 100 mg PO DAILY [facility] Last Admin: 12/01/16 09:19 Dose: 100 mg Nitroglycerin (Nitrostat Sl Tab) 0.4 mg SL Q15M PRN PRN Reason: chest pain Polyethylene Glycol (Miralax) 17 gm PO DAILY [facility] Last Admin: 12/01/16 09:30 Dose: Not Given Polyethylene Glycol (Miralax) 17 gm PO Q12H [facility] Last Admin: 12/01/16 21:32 Dose: Not Given Senna/Docusate Sodium (Senokot S 50 Mg-8.6 Mg) 2 tab PO Q12H [facility] Last Admin: 12/01/16 21:32 Dose: Not Given - Labs Labs: 12/02/16 06:25 12/02/16 06:25 PT 11.5 SECONDS (9.7-12.2) 11/28/16 06:03 INR 1.0 11/28/16 06:03 APTT 40 SECONDS (21-34) H 11/28/16 06:03 - Constitutional Appears: Confused, Chronically Ill - Head Exam Head Exam: ATRAUMATIC, NORMAL INSPECTION - Eye Exam Eye Exam: EOMI, Normal appearance - Neck Exam Neck Exam: Normal Inspection. absent: Tenderness - Respiratory Exam Respiratory Exam: Rales, Respiratory Distress - Cardiovascular Exam Cardiovascular Exam: REGULAR RHYTHM, +S1 - GI/Abdominal Exam GI & Abdominal Exam: Soft. absent: Tenderness - Extremities Exam Extremities Exam: Normal Inspection. absent: Tenderness - Neurological Exam Neurological Exam: Altered, CN II-XII Intact - Skin Skin Exam: Dry, Warm Assessment and Plan (1) Type 2 diabetes mellitus with diabetic nephropathy Status: Acute (2) ESRD (end stage renal disease) Status: Chronic (3) Intra-abdominal abscess Status: Resolved - Assessment and Plan (Free Text) Plan: IV ABs Dialysis later- after TPA infusion UF 3000ml for fluid overload Monitor mental status follow up labs
[2016-12-02] MEDS: Lactobacillus Acidophilus 500 MU Cap PO SCH ×2 (11:58→17:04)
[2016-12-02] MEDS: (Novolin R) Insulin Human Regular 100 units/ml vial SC SCH ×3 (11:59→22:47)
[2016-12-02] MEDS: POLYETHYLENE GLYCOL 3350 17 GM/Dose PACKET PO SCH ×3 (11:59→21:54)
[2016-12-02] MEDS: Docusate-Senna 50 mg-8.6 mg Tab PO SCH ×2 (12:00→21:54)
--- NOTE | 2016-12-02 13:21 | CP.PCM.PN ---
Subjective - Date & Time of Evaluation Date of Evaluation: 12/02/16 Time of Evaluation: 07:00 - Subjective Subjective: events noted more confused rx in progress needs HD Objective - Vital Signs/Intake and Output Vital Signs (last 24 hours): Temp Pulse Resp BP Pulse Ox 97.7 F 101 H 21 157/86 H 100 12/02/16 09:30 12/02/16 09:30 12/02/16 09:30 12/02/16 12:30 12/02/16 09:30 Intake and Output: 12/02/16 12/02/16 06:59 18:59 Intake Total 100 Output Total 80 Balance 20 - Medications Medications: Current Medications Acetaminophen (Tylenol 325mg Tab) 650 mg PO Q6 PRN PRN Reason: temp > 99.5 Last Admin: 11/23/16 18:44 Dose: 650 mg Albuterol Sulfate (Albuterol 0.083% Inhal Angelica (2.5 Mg/3 Ml) Ud) 2.5 mg INH RQ6 [facility] Last Admin: 12/02/16 13:06 Dose: Not Given Alprazolam (Xanax) 0.25 mg PO Q8H PRN PRN Reason: Anxiety Stop: 12/05/16 08:49 Last Admin: 11/28/16 21:41 Dose: 0.25 mg Calcium Acetate (Phoslo) 667 mg PO TIDCC [facility] Last Admin: 12/02/16 12:00 Dose: Not Given Epoetin Mik (Procrit) 10,000 unit IV MWF [facility] Last Admin: 12/02/16 10:51 Dose: 10,000 unit Famotidine (Pepcid) 20 mg PO DAILY [facility] Last Admin: 12/02/16 11:59 Dose: Not Given Folic Acid (Folic Acid) 1 mg PO DAILY [facility] Last Admin: 12/02/16 11:58 Dose: Not Given Heparin Sodium (Porcine) (Heparin) 5,000 units SC Q12 [facility] Last Admin: 12/02/16 12:02 Dose: 5,000 units Cefepime HCl (Maxipime Iv 1 Gm Premix) 1 gm in 50 mls @ 100 mls/hr IVPB Q24H [facility] Last Admin: 12/01/16 17:11 Dose: 100 mls/hr Vancomycin HCl 1,000 mg/ (Sodium Chloride) 250 mls @ 166.6 mls/hr IVPB MWF [facility] Last Admin: 11/29/16 13:25 Dose: 166.6 mls/hr Insulin Human Regular (Novolin R) 0 unit SC BID [facility] PRN Reason: Protocol Last Admin: 12/02/16 11:59 Dose: Not Given Lactobacillus Acidophilus (Bacid Acidophilus) 1 cap PO BID [facility] Last Admin: 12/02/16 11:58 Dose: Not Given Losartan Potassium (Cozaar) 100 mg PO DAILY [facility] Last Admin: 12/02/16 11:58 Dose: Not Given Nitroglycerin (Nitrostat Sl Tab) 0.4 mg SL Q15M PRN PRN Reason: chest pain Polyethylene Glycol (Miralax) 17 gm PO DAILY [facility] Last Admin: 12/02/16 11:59 Dose: Not Given Polyethylene Glycol (Miralax) 17 gm PO Q12H [facility] Last Admin: 12/02/16 11:59 Dose: Not Given Senna/Docusate Sodium (Senokot S 50 Mg-8.6 Mg) 2 tab PO Q12H [facility] Last Admin: 12/02/16 12:00 Dose: Not Given - Labs Labs: 12/02/16 06:25 12/02/16 06:25 PT 11.5 SECONDS (9.7-12.2) 11/28/16 06:03 INR 1.0 11/28/16 06:03 APTT 40 SECONDS (21-34) H 11/28/16 06:03 Assessment and Plan (1) ESRD (end stage renal disease) Status: Chronic (2) Intra-abdominal abscess Status: Resolved
[2016-12-02] MEDS ORDERED: Ciprofloxacin 200mg/100ml D5W 100 ML IVPB SCH (13:30)
[2016-12-02] MEDS ORDERED: Flumazenil 0.1 mg/ml Inj (5ml) IVP ONE (15:15)
[2016-12-02] MEDS ORDERED: Flumazenil 0.1 mg/ml Inj (5ml) IVP STA (16:48)
[2016-12-02] MEDS: Ciprofloxacin 200mg/100ml D5W 100 ML IVPB SCH (17:00)
--- NOTE | 2016-12-02 17:24 | CP.PCM.PN ---
Subjective - Date & Time of Evaluation Date of Evaluation: 12/02/16 Time of Evaluation: 17:24 - Subjective Subjective: cc: nonverbal, lethargic, not moving much HPI Called by nurse on duty around 3 pm at the office while seeing patients and informed that pt appeared to be unresponsive and non-verbalizing her condition. Nurse reports that this is the first time she's taking care of the patient and said she didn;'t know whether this was a change from pt's baseline. Pt has some xanax on board and flumazenil ordered x 2 1/2 hr apartfor reversal in case she got a dose of benzo, to which she is very sensitive. At bedside, pt noted to be moaning and crying, and moved her R arm. I asked pt to move her L arm and lower extremities but pt unable to comply. Said body parts appeared to be weight at this time. Ordered stat CT of head without contrast to see if pt did indeed have a stroke from PE findings. > Reviewed notes of other services. Dialysis was not accomplished today bec pt' s permacath had clotted and needed to be opened up. > Had called pt's son who had left word with the nurse today that this same series of events had happened when pt was hospitalized at [facility]. Pt had started hemodialysis then, and pt started trending down until one day, pt's condition mimicked a full blown CVA with slurred speech, inability to move her extremities , and dysphagia. Unknown to family what diagnoses were and how it was treated, but pt slowly started to recover until she was back to her normal self, speaking and talking. > Addendum: CT scan of head negative for hemorrhage or acute infarct Objective - Vital Signs/Intake and Output Vital Signs (last 24 hours): Temp Pulse Resp BP Pulse Ox 98.2 F 95 H 16 137/75 100 12/02/16 14:20 12/02/16 14:20 12/02/16 14:20 12/02/16 14:20 12/02/16 14:20 Intake and Output: 12/02/16 12/02/16 06:59 18:59 Intake Total 100 Output Total 80 40 Balance 20 -40 - Medications Medications: Current Medications Acetaminophen (Tylenol 325mg Tab) 650 mg PO Q6 PRN PRN Reason: temp > 99.5 Last Admin: 11/23/16 18:44 Dose: 650 mg Albuterol Sulfate (Albuterol 0.083% Inhal Angelica (2.5 Mg/3 Ml) Ud) 2.5 mg INH RQ6 [facility] Last Admin: 12/02/16 13:06 Dose: Not Given Alprazolam (Xanax) 0.25 mg PO Q8H PRN PRN Reason: Anxiety Stop: 12/05/16 08:49 Last Admin: 11/28/16 21:41 Dose: 0.25 mg Calcium Acetate (Phoslo) 667 mg PO TIDCC [facility] Last Admin: 12/02/16 17:04 Dose: Not Given Epoetin Mik (Procrit) 10,000 unit IV MWF [facility] Last Admin: 12/02/16 10:51 Dose: 10,000 unit Famotidine (Pepcid) 20 mg PO DAILY [facility] Last Admin: 12/02/16 11:59 Dose: Not Given Folic Acid (Folic Acid) 1 mg PO DAILY [facility] Last Admin: 12/02/16 11:58 Dose: Not Given Heparin Sodium (Porcine) (Heparin) 5,000 units SC Q12 [facility] Last Admin: 12/02/16 12:02 Dose: 5,000 units Vancomycin HCl 1,000 mg/ (Sodium Chloride) 250 mls @ 166.6 mls/hr IVPB MWF [facility] Last Admin: 12/02/16 14:22 Dose: 166.6 mls/hr Ciprofloxacin (Cipro 200mg/100ml D5w) 100 mls @ 67 mls/hr IVPB Q12H [facility] Last Admin: 12/02/16 17:00 Dose: 67 mls/hr Insulin Human Regular (Novolin R) 0 unit SC BID [facility] PRN Reason: Protocol Last Admin: 12/02/16 11:59 Dose: Not Given Lactobacillus Acidophilus (Bacid Acidophilus) 1 cap PO BID [facility] Last Admin: 12/02/16 17:04 Dose: Not Given Losartan Potassium (Cozaar) 100 mg PO DAILY [facility] Last Admin: 12/02/16 11:58 Dose: Not Given Nitroglycerin (Nitrostat Sl Tab) 0.4 mg SL Q15M PRN PRN Reason: chest pain Polyethylene Glycol (Miralax) 17 gm PO Q12H [facility] Last Admin: 12/02/16 11:59 Dose: Not Given Senna/Docusate Sodium (Senokot S 50 Mg-8.6 Mg) 2 tab PO Q12H [facility] Last Admin: 12/02/16 12:00 Dose: Not Given - Labs Labs: 12/02/16 06:25 12/02/16 06:25 PT 11.5 SECONDS (9.7-12.2) 11/28/16 06:03 INR 1.0 11/28/16 06:03 APTT 40 SECONDS (21-34) H 11/28/16 06:03 - Constitutional Appears: In Acute Distress (but not in pain), Confused (unable to verbalize words with meaningful context) - Head Exam Head Exam: ATRAUMATIC, NORMAL INSPECTION, NORMOCEPHALIC (staring out at nothing , appears unable to focus) Additional comments: + R angle of jaw droop - Eye Exam Eye Exam: Normal appearance, PERRL Pupil Exam: NORMAL ACCOMODATION - ENT Exam Additional comments: unable to comply - Respiratory Exam Respiratory Exam: Clear to Ausculation Bilateral (cryihg out in unintelligible moans) - Cardiovascular Exam Cardiovascular Exam: REGULAR RHYTHM (SBP in 140s) - GI/Abdominal Exam GI & Abdominal Exam: Soft - Rectal Exam Rectal Exam: Deferred (no lose of bowel or bladder control) - Extremities Exam Extremities Exam: Normal Capillary Refill, Normal Inspection - Neurological Exam Neuro motor strength exam: Left Upper Extremity: 0, Right Upper Extremity: 3, Left Lower Extremity: 0, Right Lower Extremity: 0 - Psychiatric Exam Psychiatric exam: Flat Affect - Skin Skin Exam: Dry, Warm Assessment and Plan (1) Hypokalemic familial periodic paralysis Assessment & Plan: fits the pattern of episodic paralysis (?) for lack of an acute central neurologic issue. Pt's K at 7.0 last , and had HD Fri, Fri, Fri. Today at 4.0. ?? Status: Acute (2) Intra-abdominal abscess Assessment & Plan: on IV abx Status: Resolved (3) Anemia of chronic disease Status: Chronic (4) ESRD (end stage renal disease) Status: Chronic (5) Generalized weakness Assessment & Plan: physical therapy Status: Acute (6) Hypertension Assessment & Plan: restart labelatolol started at the floor prior to surgery Status: Acute (7) Hyponatremia Assessment & Plan: pt NPO at this time, and unable to drink fluids, acting as normal fluid restriction mechanism. Will hold po consumption for now until pt feels better or regains her baseline, or new developments surface that will allow normal nutritional intake. reports pt does not want G-tube/artificial feeding should a situation like this occur. Status: Resolved
--- NOTE | 2016-12-02 18:12 | CT ---
PROCEDURE: CT scan brain dated 12/02/16 HISTORY: Mental status change COMPARISON: None available. TECHNIQUE: Axial computed tomography images were obtained through the head/brain without intravenous contrast. Radiation dose: Total exam DLP = 1180.85 mGy-cm. This CT exam was performed using one or more of the following dose reduction techniques: Automated exposure control, adjustment of the mA and/or kV according to patient size, and/or use of iterative reconstruction technique. FINDINGS: HEMORRHAGE: No intracranial hemorrhage. BRAIN: Moderate chronic periventricular white matter ischemic changes seen extending peripherally into the deep and subcortical white matter both cerebral hemispheres. Changes are somewhat more patchy in the deep and subcortical regions. There may also be a few scattered chronic bilateral basal nuclei lacunar type infarcts. Mild generalized volume loss. VENTRICLES: No evidence of obstructive hydrocephalus CALVARIUM: There are no acute calvarial fractures. Hyperostosis frontalis interna present. PARANASAL SINUSES: Unremarkable as visualized. No significant inflammatory changes. MASTOID AIR CELLS: Unremarkable as visualized. No inflammatory changes. OTHER FINDINGS: Status post bilateral cataract surgery IMPRESSION: No acute intracranial hemorrhage. Moderate chronic white matter ischemic changes with a few scattered chronic bilateral basal nuclei lacunar type infarcts. Mild generalized volume loss.
[2016-12-02] MEDS ORDERED: Potassium Chloride 20 MEQ in Dextrose 5%/0.9% NS 1,000 ML IV SCH (19:45)
[2016-12-03] MEDS: Albuterol 0.083% Inhal Sol (2.5 mg/3 mL) UD INH SCH ×4 (01:10→19:22)
[2016-12-03] MEDS: Ciprofloxacin 200mg/100ml D5W 100 ML IVPB SCH ×2 (05:00→18:08)
[2016-12-03 06:29] LABS: HEMATOCRIT 28.4 % (34.0-47.0); MEAN CELL VOLUME 87.4 fL (81.0-99.0); MEAN CORPUSCULAR HEMOGLOBIN 28.7 pg (27.0-31.0); MEAN CORPUSCULAR HGB CONC 32.9 g/dL (33.0-37.0); RED CELL DISTRIBUTION WIDTH 14.6 % (11.5-14.5); WHITE BLOOD COUNT 6.2 K/uL (4.8-10.8)
[2016-12-03 06:49] LABS: ALB/GLOB RATIO 0.7 (1.0-2.1); BILIRUBIN,TOTAL 0.8 mg/dL (0.2-1.3); TOTAL PROTEIN 6.8 g/dL (6.3-8.3)
[2016-12-03 06:50] LABS: CALCIUM 8.6 mg/dl (8.6-10.4); PHOSPHOROUS 3.8 mg/dL (2.5-4.5)
[2016-12-03] MEDS: (Novolin R) Insulin Human Regular 100 units/ml vial SC SCH ×3 (08:18→16:30)
--- NOTE | 2016-12-03 08:52 | CP.PCM.PN ---
Subjective - Date & Time of Evaluation Date of Evaluation: 12/03/16 Time of Evaluation: 08:48 - Subjective Subjective: PGY1 Progress note for Dr. Garzon: Patient seen and examined. Patient had CT head yesterday to rule out acute pathology due to patient's inability to verbalize- CT negative for acute hemorrhage, there is moderate chronic white matter ischemic changes with scattered chronic b/l basal nuclei lacunar infarcts. Patient with similar presentation today, not verbalizing response to questions. Patient does not appear to be in any acute distress. Objective - Vital Signs/Intake and Output Vital Signs (last 24 hours): Temp Pulse Resp BP Pulse Ox 98.5 F 104 H 12 151/100 H 99 12/03/16 08:00 12/03/16 04:00 12/03/16 04:00 12/03/16 04:00 12/03/16 04:00 Intake and Output: 12/03/16 12/03/16 06:59 18:59 Output Total 30 Balance -30 - Medications Medications: Current Medications Acetaminophen (Tylenol 325mg Tab) 650 mg PO Q6 PRN PRN Reason: temp > 99.5 Last Admin: 11/23/16 18:44 Dose: 650 mg Albuterol Sulfate (Albuterol 0.083% Inhal Angelica (2.5 Mg/3 Ml) Ud) 2.5 mg INH RQ6 [facility] Last Admin: 12/03/16 07:44 Dose: 2.5 mg Alprazolam (Xanax) 0.25 mg PO Q8H PRN PRN Reason: Anxiety Stop: 12/05/16 08:49 Last Admin: 11/28/16 21:41 Dose: 0.25 mg Aspirin (Ecotrin) 81 mg PO DAILY [facility] Calcium Acetate (Phoslo) 667 mg PO TIDCC [facility] Last Admin: 12/02/16 17:04 Dose: Not Given Epoetin Mik (Procrit) 10,000 unit IV MWF [facility] Last Admin: 12/02/16 10:51 Dose: 10,000 unit Famotidine (Pepcid) 20 mg PO DAILY [facility] Last Admin: 12/02/16 11:59 Dose: Not Given Folic Acid (Folic Acid) 1 mg PO DAILY [facility] Last Admin: 12/02/16 11:58 Dose: Not Given Heparin Sodium (Porcine) (Heparin) 5,000 units SC Q8 [facility] Last Admin: 12/03/16 07:50 Dose: 5,000 units Vancomycin HCl 1,000 mg/ (Sodium Chloride) 250 mls @ 166.6 mls/hr IVPB MWF [facility] Last Admin: 12/02/16 14:22 Dose: 166.6 mls/hr Ciprofloxacin (Cipro 200mg/100ml D5w) 100 mls @ 67 mls/hr IVPB Q12H [facility] Last Admin: 12/03/16 05:00 Dose: 67 mls/hr Potassium Chloride 20 meq/ (Dextrose/Sodium Chloride) 1,010 mls @ 80 mls/hr IV .[id number] [facility] Last Admin: 12/02/16 20:15 Dose: 80 mls/hr Insulin Human Regular (Novolin R) 0 unit SC ACHS [facility] PRN Reason: Protocol Last Admin: 12/03/16 08:18 Dose: 1 unit Lactobacillus Acidophilus (Bacid Acidophilus) 1 cap PO BID [facility] Last Admin: 12/02/16 17:04 Dose: Not Given Losartan Potassium (Cozaar) 100 mg PO DAILY [facility] Last Admin: 12/02/16 11:58 Dose: Not Given Nitroglycerin (Nitrostat Sl Tab) 0.4 mg SL Q15M PRN PRN Reason: chest pain Polyethylene Glycol (Miralax) 17 gm PO Q12H [facility] Last Admin: 12/02/16 21:54 Dose: Not Given Senna/Docusate Sodium (Senokot S 50 Mg-8.6 Mg) 2 tab PO Q12H [facility] Last Admin: 12/02/16 21:54 Dose: Not Given - Labs Labs: 12/03/16 06:24 12/03/16 06:24 PT 11.5 SECONDS (9.7-12.2) 11/28/16 06:03 INR 1.0 11/28/16 06:03 APTT 40 SECONDS (21-34) H 11/28/16 06:03 - Constitutional Appears: No Acute Distress, Confused - Head Exam Head Exam: ATRAUMATIC, NORMOCEPHALIC - Eye Exam Eye Exam: EOMI - Respiratory Exam Respiratory Exam: NORMAL BREATHING PATTERN - GI/Abdominal Exam GI & Abdominal Exam: Soft. absent: Tenderness Additional comments: silva drain with serous fluid, becoming less purulent minimal drainage from midline incision - Neurological Exam Neurological Exam: Awake - Skin Skin Exam: Warm Assessment and Plan - Assessment and Plan (Free Text) Assessment: 71 year old female s/p ex lap POD 8 for intra-abdominal abscess -cont silva drain and monitor output- fluid less purulent, more serous today -hold off on AVF in light of current infection -cont antibiotics per ID -daily dressing changes -medical management per primary -can be transferred to floor from surgical standpoint -D/W Dr. Garzon
--- NOTE | 2016-12-03 09:31 | EEG ---
DATE: 12/03/2016 INTRODUCTION: This is a digitally recorded EEG monitoring using standard EEG montages. BACKGROUND RHYTHM: The EEG shows a background activity of 5-6 Hz alpha activity in parietooccipital region. The EEG activity is bilaterally symmetrical and synchronous. There is attenuation of the ba ckground activity on eye opening. A moderate amount of movement artifact seen in this EEG recording. ABNORMAL POTENTIALS: No spikes, sharp waves or focal slowing was seen. PHOTIC STIMULATION AND HYPERVENTILATION: Photic stimulation did not reveal any abnormality. Hyperve ntilation was not performed. IMPRESSION: Abnormal electroencephalogram. The above findings are consistent with moderate bihemisp heric cerebral dysfunction. No epileptiform activity seen in this electroencephalogram recording. Shazia Hendrickson MD cc: [id number] TT: 12/03/2016 09:30:09 Confirmation # [id number] Dictation # [id number] en
--- NOTE | 2016-12-03 09:36 | CON ---
DATE: 12/03/2016 REASON FOR CONSULTATION: Decreased responsiveness. HISTORY OF PRESENT ILLNESS: The patient is a 71-year-old female who has been asked for evaluation of altered mental status and decreased responsiveness. The patient apparently was not verbalizing since yesterday morning. The patient is just looking around, not following commands. The patient unable to follow any commands. History is mainly from the chart. The patient was admitted to the hospital with abdominal pain and is status post intraabdominal abscess with the patient being treated with IV antibiotics. The patient is unable to give history and history is taken mainly from the chart. PAST MEDICAL HISTORY: Includes hypertension, questionable anxiety. CURRENT MEDICATIONS: Include albuterol, ciprofloxacin, losartan, aspirin, folic acid, Brilinta, Novolin, Pepcid, PhosLo, Procrit, Senokot, Xanax and vancomycin. ALLERGIES: No known drug allergies. SOCIAL HISTORY: The patient is a nonsmoker and nonalcoholic. Does not use any illicit drugs. FAMILY HISTORY: Noncontributory to the case. PHYSICAL EXAMINATION: GENERAL: The patient is an elderly female lying on the bed in no acute distress. VITAL SIGNS: Her blood pressure is 151/100, heart rate is 104 per minute, breathing at a rate of 16 per minute, temperature is 98.9 degrees Fahrenheit. HEENT: Head is normocephalic, atraumatic. NECK: Supple. There are no carotid bruits. LUNGS: Clear. CARDIOVASCULAR: S1, S2 audible. No murmurs. ABDOMEN: Soft and nontender. Bowel sounds are present. NEUROLOGIC EXAMINATION: MENTAL STATUS: The patient is awake. She does not follow any commands. She is not verbalizing. She looks at the examiner. CRANIAL NERVES: Pupils 2 mm bilaterally reactive to light. Visual cui are full. Extraocular movements are intact. There is no facial asymmetry. MOTOR: She is moving all 4 extremities. Power appeared to be 4/5 all over. REFLEXES: 1+ and symmetrical with absent ankle jerk. Plantars downgoing bilaterally. LABORATORY DATA: Reviewed, shows WBC of 6.2, hemoglobin of 9.3, hematocrit 28.4 and platelets of 144. Sodium is 132, potassium 4.0, chloride 96, carbon dioxide 28, BUN of 26, creatinine of 4.7 and glucose of 150. She had a CT scan of the head done which showed no acute intracranial hemorrhage. Moderate chronic white matter ischemic changes with diffuse scattered chronic bilateral basal lacunar type infarcts. IMPRESSION: Altered mental status, rule out any cerebrovascular accident vs toxic metabolic encephalopathy. RECOMMENDATIONS: 1. The patient had an electroencephalogram that was done earlier, which shows diffuse slowing consistent with moderate bihemispheric cerebral dysfunction. 2. The patient to have MRI of the brain without contrast. 3. The patient to be continued on IV antibiotics for the intraabdominal abscess. 4. This may have been postictal phenomena as well; however, the current EEG does not show any epileptogenic activity; however, it shows diffuse slowing. 5. Please continue supportive care and other treatment. Thank you for the opportunity to participate in the care of this patient. Shazia Hendrickson MD cc: [id number] TT: 12/03/2016 09:34:48 Confirmation # [id number] Dictation # [id number] meek HEAL[facility]
--- NOTE | 2016-12-03 11:12 | CP.PCM.PN ---
Subjective - Date & Time of Evaluation Date of Evaluation: 12/03/16 Time of Evaluation: 11:11 - Subjective Subjective: seen and examined s/p hd yesterday following tpa, cathetr still w/ poor flows pt is very confused, not following commands. very poor po intake at bedside. Objective - Vital Signs/Intake and Output Vital Signs (last 24 hours): Temp Pulse Resp BP Pulse Ox 98.5 F 105 H 12 151/100 H 99 12/03/16 08:00 12/03/16 08:00 12/03/16 04:00 12/03/16 04:00 12/03/16 04:00 Intake and Output: 12/03/16 12/03/16 06:59 18:59 Output Total 30 Balance -30 - Medications Medications: Current Medications Acetaminophen (Tylenol 325mg Tab) 650 mg PO Q6 PRN PRN Reason: temp > 99.5 Last Admin: 11/23/16 18:44 Dose: 650 mg Albuterol Sulfate (Albuterol 0.083% Inhal Angelica (2.5 Mg/3 Ml) Ud) 2.5 mg INH RQ6 [facility] Last Admin: 12/03/16 07:44 Dose: 2.5 mg Alprazolam (Xanax) 0.25 mg PO Q8H PRN PRN Reason: Anxiety Stop: 12/05/16 08:49 Last Admin: 11/28/16 21:41 Dose: 0.25 mg Aspirin (Ecotrin) 81 mg PO DAILY [facility] Calcium Acetate (Phoslo) 667 mg PO TIDCC [facility] Last Admin: 12/02/16 17:04 Dose: Not Given Epoetin Mik (Procrit) 10,000 unit IV MWF [facility] Last Admin: 12/02/16 10:51 Dose: 10,000 unit Famotidine (Pepcid) 20 mg PO DAILY [facility] Last Admin: 12/02/16 11:59 Dose: Not Given Folic Acid (Folic Acid) 1 mg PO DAILY [facility] Last Admin: 12/02/16 11:58 Dose: Not Given Heparin Sodium (Porcine) (Heparin) 5,000 units SC Q8 [facility] Last Admin: 12/03/16 07:50 Dose: 5,000 units Vancomycin HCl 1,000 mg/ (Sodium Chloride) 250 mls @ 166.6 mls/hr IVPB MWF [facility] Last Admin: 12/02/16 14:22 Dose: 166.6 mls/hr Ciprofloxacin (Cipro 200mg/100ml D5w) 100 mls @ 67 mls/hr IVPB Q12H [facility] Last Admin: 12/03/16 05:00 Dose: 67 mls/hr Potassium Chloride 20 meq/ (Dextrose/Sodium Chloride) 1,010 mls @ 80 mls/hr IV .[id number] [facility] Last Admin: 12/02/16 20:15 Dose: 80 mls/hr Insulin Human Regular (Novolin R) 0 unit SC ACHS [facility] PRN Reason: Protocol Last Admin: 12/03/16 08:18 Dose: 1 unit Lactobacillus Acidophilus (Bacid Acidophilus) 1 cap PO BID [facility] Last Admin: 12/02/16 17:04 Dose: Not Given Losartan Potassium (Cozaar) 100 mg PO DAILY [facility] Last Admin: 12/02/16 11:58 Dose: Not Given Nitroglycerin (Nitrostat Sl Tab) 0.4 mg SL Q15M PRN PRN Reason: chest pain Polyethylene Glycol (Miralax) 17 gm PO Q12H [facility] Last Admin: 12/02/16 21:54 Dose: Not Given Senna/Docusate Sodium (Senokot S 50 Mg-8.6 Mg) 2 tab PO Q12H [facility] Last Admin: 12/02/16 21:54 Dose: Not Given - Labs Labs: 12/03/16 06:24 12/03/16 06:24 PT 11.5 SECONDS (9.7-12.2) 11/28/16 06:03 INR 1.0 11/28/16 06:03 APTT 40 SECONDS (21-34) H 11/28/16 06:03 - Constitutional Appears: Non-toxic, Agitated, Confused, Cachectic, Chronically Ill - Head Exam Head Exam: NORMAL INSPECTION - Eye Exam Eye Exam: Normal appearance - ENT Exam ENT Exam: Mucous Membranes Dry - Neck Exam Neck Exam: Normal Inspection - Respiratory Exam Respiratory Exam: Decreased Breath Sounds, NORMAL BREATHING PATTERN - Cardiovascular Exam Cardiovascular Exam: REGULAR RHYTHM, RRR - GI/Abdominal Exam GI & Abdominal Exam: Distended, Soft Additional comments: lin drain - Extremities Exam Extremities Exam: Normal Inspection Assessment and Plan (1) Hypertension Status: Acute (2) ESRD (end stage renal disease) Status: Chronic (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
[2016-12-03] MEDS: Lactobacillus Acidophilus 500 MU Cap PO SCH ×2 (12:24→17:55)
[2016-12-03] MEDS: POLYETHYLENE GLYCOL 3350 17 GM/Dose PACKET PO SCH ×2 (12:25→21:00)
[2016-12-03] MEDS: Docusate-Senna 50 mg-8.6 mg Tab PO SCH ×2 (12:26→21:00)
[2016-12-03] MEDS: Metoprolol 1 mg/ml Inj IVP SCH ×2 (12:28→20:30)
--- NOTE | 2016-12-03 13:31 | CP.PCM.PN ---
Subjective - Date & Time of Evaluation Date of Evaluation: 12/03/16 Time of Evaluation: 09:00 - Subjective Subjective: mri pending off maxepime may need LP on vanco/cipro /flagyl Objective - Vital Signs/Intake and Output Vital Signs (last 24 hours): Temp Pulse Resp BP Pulse Ox 98.5 F 105 H 12 151/100 H 99 12/03/16 08:00 12/03/16 08:00 12/03/16 04:00 12/03/16 04:00 12/03/16 04:00 Intake and Output: 12/03/16 12/03/16 06:59 18:59 Output Total 30 Balance -30 - Medications Medications: Current Medications Acetaminophen (Tylenol 325mg Tab) 650 mg PO Q6 PRN PRN Reason: temp > 99.5 Last Admin: 11/23/16 18:44 Dose: 650 mg Albuterol Sulfate (Albuterol 0.083% Inhal Angelica (2.5 Mg/3 Ml) Ud) 2.5 mg INH RQ6 [facility] Last Admin: 12/03/16 07:44 Dose: 2.5 mg Alprazolam (Xanax) 0.25 mg PO Q8H PRN PRN Reason: Anxiety Stop: 12/05/16 08:49 Last Admin: 11/28/16 21:41 Dose: 0.25 mg Aspirin (Ecotrin) 81 mg PO DAILY [facility] Last Admin: 12/03/16 12:24 Dose: Not Given Calcium Acetate (Phoslo) 667 mg PO TIDCC [facility] Last Admin: 12/03/16 12:25 Dose: Not Given Epoetin Mik (Procrit) 10,000 unit IV MWF [facility] Last Admin: 12/02/16 10:51 Dose: 10,000 unit Famotidine (Pepcid) 20 mg PO DAILY [facility] Last Admin: 12/03/16 12:25 Dose: Not Given Famotidine (Pepcid) 20 mg IVP Q12 [facility] Last Admin: 12/03/16 12:31 Dose: 20 mg Folic Acid (Folic Acid) 1 mg PO DAILY [facility] Last Admin: 12/03/16 12:25 Dose: Not Given Heparin Sodium (Porcine) (Heparin) 5,000 units SC Q8 [facility] Last Admin: 12/03/16 07:50 Dose: 5,000 units Vancomycin HCl 1,000 mg/ (Sodium Chloride) 250 mls @ 166.6 mls/hr IVPB MWF [facility] Last Admin: 12/02/16 14:22 Dose: 166.6 mls/hr Ciprofloxacin (Cipro 200mg/100ml D5w) 100 mls @ 67 mls/hr IVPB Q12H [facility] Last Admin: 12/03/16 05:00 Dose: 67 mls/hr Potassium Chloride 20 meq/ (Dextrose/Sodium Chloride) 1,010 mls @ 80 mls/hr IV .[id number] [facility] Last Admin: 12/02/16 20:15 Dose: 80 mls/hr Insulin Human Regular (Novolin R) 0 unit SC ACHS [facility] PRN Reason: Protocol Last Admin: 12/03/16 12:29 Dose: 3 unit Lactobacillus Acidophilus (Bacid Acidophilus) 1 cap PO BID [facility] Last Admin: 12/03/16 12:24 Dose: Not Given Losartan Potassium (Cozaar) 100 mg PO DAILY [facility] Last Admin: 12/03/16 12:24 Dose: Not Given Metoprolol Tartrate (Lopressor) 5 mg IVP Q8H [facility] Last Admin: 12/03/16 12:28 Dose: 5 mg Nitroglycerin (Nitrostat Sl Tab) 0.4 mg SL Q15M PRN PRN Reason: chest pain Polyethylene Glycol (Miralax) 17 gm PO Q12H [facility] Last Admin: 12/03/16 12:25 Dose: Not Given Senna/Docusate Sodium (Senokot S 50 Mg-8.6 Mg) 2 tab PO Q12H [facility] Last Admin: 12/03/16 12:26 Dose: Not Given - Labs Labs: 12/03/16 06:24 12/03/16 06:24 PT 11.5 SECONDS (9.7-12.2) 11/28/16 06:03 INR 1.0 11/28/16 06:03 APTT 40 SECONDS (21-34) H 11/28/16 06:03 - Constitutional Appears: Cachectic, Chronically Ill - Head Exam Head Exam: NORMOCEPHALIC - Eye Exam Eye Exam: absent: Scleral icterus - ENT Exam ENT Exam: Mucous Membranes Dry - Neck Exam Neck Exam: absent: Lymphadenopathy - Respiratory Exam Respiratory Exam: Decreased Breath Sounds - Cardiovascular Exam Cardiovascular Exam: REGULAR RHYTHM - GI/Abdominal Exam GI & Abdominal Exam: Distended, Soft - Rectal Exam Rectal Exam: Deferred - Extremities Exam Extremities Exam: Pedal Edema - Back Exam Back Exam: absent: CVA tenderness (L), CVA tenderness (R) - Neurological Exam Neurological Exam: Altered Assessment and Plan (1) ESRD (end stage renal disease) Status: Chronic (2) Intra-abdominal abscess Status: Resolved
--- NOTE | 2016-12-03 14:36 | MRI ---
PROCEDURE: MRI BRAIN WITHOUT CONTRAST HISTORY: altered mental status COMPARISON: Comparison made with CT scan of the brain dated 12/02/2016 TECHNIQUE: Multiplanar, multisequence MR images of the brain were obtained without intravenous contrast enhancement. Note that the examination is limited by motion artifact FINDINGS: HEMORRHAGE: No acute parenchymal, subarachnoid nor extra-axial hemorrhage. . . DWI: No evidence of obvious large acute/ subacute infarcts seen on diffusion-weighted sequence BRAIN PARENCHYMA: Mild moderate chronic periventricular white matter ischemic changes. Moderate generalized volume loss VENTRICLES: No evidence of obstructive hydrocephalus CRANIUM: Unremarkable. ORBITS: Bilateral cataract surgery again noted, PARANASAL SINUSES/MASTOIDS: Clear VASCULAR SYSTEM: Visualized major vascular flow voids at skull base appear patent so far as can be seen OTHER FINDINGS: None. IMPRESSION: Limited motion degraded study. No definitive radiographic evidence of acute hemorrhage. Mild to moderate chronic white matter ischemic changes.
[2016-12-04] MEDS ORDERED: Nitroglycerin 2% Ointment Foilpak UD TOP ONE ×3 (00:13→00:15)
[2016-12-04] MEDS ORDERED: Nitroglycerin 50mg in D5W 50 MG/250 ML BOTTLE IV ONE (00:18)
[2016-12-04] MEDS ORDERED: Nitroglycerin 50mg in D5W 50 MG/250 ML BOTTLE IV SCH (00:20)
[2016-12-04] MEDS: Albuterol 0.083% Inhal Sol (2.5 mg/3 mL) UD INH SCH ×4 (01:35→19:27)
[2016-12-04] MEDS ORDERED: Iodixanol 320 MG/ML 100 ML BOTTLE IV ONE (02:17)
[2016-12-04] MEDS ORDERED: Heparin25000 units/250ml 1/2NS 25,000 UNITS/250 ML BAG IV ONE (04:15)
[2016-12-04] MEDS: Metoprolol 1 mg/ml Inj IVP SCH ×3 (04:30→20:30)
[2016-12-04] MEDS: Ciprofloxacin 200mg/100ml D5W 100 ML IVPB SCH (04:30)
--- NOTE | 2016-12-04 04:34 | CP.CCUPN ---
CCU Subjective - Physician Review Events Since Last Encounter (Free Text): 12/04/16 03:51 Patient seen and examined at 3:51 am. She is currently calm and on BiPAP, BP 111 /55 mmhg, hr 95 bpm, hr 17 bpm, O2 100% on . Earlier in the evening I examined her lungs with clear bilateral air of entry. She was seen by Dr. Garcia for an episode of agitation with HTN (180/101 mmHg) and tachycardia, very restless, gave 0.5 mg of ativan, cardizem 5 mg IV X 3, and placed on BiPAP. Sent to CT scan to r/o PE. Upgraded to ICU by Dr. Garcia. Scan showing PE, started heparin drip, d/c dextrose solution, NPO, NS at 50 mL/ hr. CCU Objective - Vital Signs / Intake & Output Vital Signs (Last 4 hours): Vital Signs Temp Pulse Resp BP Pulse Ox 12/04/16 03:00 101 H 21 111/65 100 12/04/16 02:45 105 H 21 133/74 100 12/04/16 02:00 117 H 22 102/60 99 12/04/16 01:45 119 H 23 105/64 98 12/04/16 01:30 131 H 27 H 114/73 95 12/04/16 01:15 124 H 24 128/87 95 12/04/16 01:00 132 H 29 H 152/89 H 98 12/04/16 00:45 138 H 29 H 136/83 99 12/04/16 00:30 145 H 29 H 124/83 96 12/04/16 00:15 152 H 26 H 166/122 H 99 12/04/16 00:00 98.2 F 144 H 31 H 174/112 H 93 L Intake and Output (Last 8hrs): Intake & Output 12/03/16 12/03/16 12/04/16 14:59 22:59 06:59 Intake Total 400 490 Output Total 60 50 Balance 340 440 Intake: Intake, IV Amount 400 490 Left Arm PICC 20 Left Arm PICC #2 100 Left Brachiocephalic 100 Left Upper arm 400 270 Output: Drainage 60 50 Lower Abdomen 60 50 Urine 0 Urine, Voided 0 Other: # Bowel Movements 1 - Physical Exam Head: Positive for: Atraumatic, Normocephalic Pupils: Positive for: PERRL Extroacular Muscles: Positive for: EOMI Mouth: Positive for: Moist Mucous Membranes Respiratory/Chest: Positive for: Good Air Exchange, Decreased Breath Sounds, Rales (bibasilar). Negative for: Clear to Auscultation, Accessory Muscle Use, Wheezes, Rhonchi Cardiovascular: Positive for: Normal S1, S2, Peripheal Pulses Present, Tachycardic. Negative for: Regular Rate and Rhythm, Murmurs Abdomen: Positive for: Tenderness (surrounding incision), Normal Bowel Sounds, Other (dressing in place: clean, dry, intact). Negative for: Distention, Rebound, Guarding Upper Extremity: Positive for: NORMAL PULSES, Neurovascularly Intact Lower Extremity: Positive for: Edema (trace - 1+), NORMAL PULSES, Neurovascularly Intact. Negative for: CALF TENDERNESS Neurological: Positive for: CN II-XII Intact, Speech Normal, Motor Func Grossly Intact Skin: Positive for: Warm, Dry Psychiatric: Positive for: Alert, Oriented x 3 - Medications Active Medications: Active Medications Generic Name Dose Route Start Last Admin Trade Name Freq PRN Reason Stop Dose Admin Acetaminophen 650 mg 11/11/16 19:17 11/23/16 18:44 Tylenol 325mg Tab PO 650 mg Q6 PRN Administration temp > 99.5 Albuterol Sulfate 2.5 mg 11/30/16 02:00 12/03/16 19:22 Albuterol 0.083% Inhal Angelica (2.5 Mg/3 Ml) Ud INH 2.5 mg RQ6 MARYLOU Administration Alprazolam 0.25 mg 11/28/16 08:48 11/28/16 21:41 Xanax PO 12/05/16 08:49 0.25 mg Q8H PRN Administration Anxiety Aspirin 81 mg 12/03/16 10:00 12/03/16 12:24 Ecotrin PO Not Given DAILY MARYLOU Calcium Acetate 667 mg 11/27/16 17:00 12/03/16 16:30 Phoslo PO Not Given TIDCC MARYLOU Epoetin Mik 10,000 unit 11/13/16 09:00 12/02/16 10:51 Procrit IV 10,000 unit MWF MARYLOU Administration Famotidine 20 mg 11/27/16 10:00 12/03/16 12:25 Pepcid PO Not Given DAILY MARYLOU Famotidine 20 mg 12/03/16 11:45 12/03/16 21:00 Pepcid IVP 20 mg Q12 MARYOLU Administration Folic Acid 1 mg 11/19/16 10:00 12/03/16 12:25 Folic Acid PO Not Given DAILY [facility] Heparin Sodium (Porcine) 5,000 units 12/02/16 22:00 12/03/16 21:00 Heparin SC 5,000 units Q8 MARYLOU Administration Vancomycin HCl 1,000 mg/ 250 mls @ 166.6 mls/hr 11/25/16 09:00 12/02/16 14:22 Sodium Chloride IVPB 166.6 mls/hr MWF MARYLOU Administration Ciprofloxacin 100 mls @ 67 mls/hr 12/02/16 16:00 12/03/16 18:08 Cipro 200mg/100ml D5w IVPB 67 mls/hr Q12H MARYLOU Administration Dextrose 1,000 mls @ 20 mls/hr 12/03/16 16:30 12/03/16 16:58 Dextrose 10% In Water IV 20 mls/hr .Q24H MARYLOU Administration Insulin Human Regular 0 unit 12/02/16 22:00 12/03/16 16:30 Novolin R SC Not Given ACHS [facility] Protocol Lactobacillus Acidophilus 1 cap 11/16/16 18:00 12/03/16 17:55 Bacid Acidophilus PO Not Given BID [facility] Losartan Potassium 100 mg 11/22/16 12:30 12/03/16 12:24 Cozaar PO Not Given DAILY [facility] Metoprolol Tartrate 5 mg 12/03/16 11:30 12/03/16 20:30 Lopressor IVP 5 mg Q8H [facility] Administration Nitroglycerin 0.4 mg 11/12/16 18:57 Nitrostat Sl Tab SL Q15M PRN chest pain Polyethylene Glycol 17 gm 11/29/16 21:45 12/03/16 21:00 Miralax PO Not Given Q12H [facility] Senna/Docusate Sodium 2 tab 11/28/16 09:00 12/03/16 21:00 Senokot S 50 Mg-8.6 Mg PO Not Given Q12H [facility] - Patient Studies Lab Studies: Lab Studies 12/04/16 12/04/16 12/03/16 Range/Units 02:04 01:49 23:50 WBC (4.8-10.8) K/uL RBC (3.80-5.20) Mil/uL Hgb (11.0-16.0) g/dL Hct (34.0-47.0) % MCV (81.0-99.0) fL MCH (27.0-31.0) pg MCHC (33.0-37.0) g/dL RDW (11.5-14.5) % Plt Count (130-400) K/uL MPV (7.2-11.7) fL Sodium (132-148) mmol/L Potassium (3.6-5.2) mmol/L Chloride (98-107) mmol/L Carbon Dioxide (22-30) mmol/L Anion Gap (10-20) BUN (7-17) mg/dL Creatinine (0.7-1.2) MG/DL Est GFR ( Amer) Est GFR (Non-Af Amer) POC Glucose (mg/dL) 210 H 219 H 148 H (65-110) mg/dL Random Glucose (65-105) mg/dL Calcium (8.6-10.4) mg/dl Phosphorus (2.5-4.5) mg/dL Total Bilirubin (0.2-1.3) mg/dL AST (14-36) U/L ALT (9-52) U/L Alkaline Phosphatase (38-126) U/L Total Protein (6.3-8.3) g/dL Albumin (3.5-5.0) g/dL Globulin (2.2-3.9) gm/dL Albumin/Globulin Ratio (1.0-2.1) 12/03/16 12/03/16 12/03/16 Range/Units 23:01 22:05 21:07 WBC (4.8-10.8) K/uL RBC (3.80-5.20) Mil/uL Hgb (11.0-16.0) g/dL Hct (34.0-47.0) % MCV (81.0-99.0) fL MCH (27.0-31.0) pg MCHC (33.0-37.0) g/dL RDW (11.5-14.5) % Plt Count (130-400) K/uL MPV (7.2-11.7) fL Sodium (132-148) mmol/L Potassium (3.6-5.2) mmol/L Chloride (98-107) mmol/L Carbon Dioxide (22-30) mmol/L Anion Gap (10-20) BUN (7-17) mg/dL Creatinine (0.7-1.2) MG/DL Est GFR ( Amer) Est GFR (Non-Af Amer) POC Glucose (mg/dL) 126 H 133 H 149 H (65-110) mg/dL Random Glucose (65-105) mg/dL Calcium (8.6-10.4) mg/dl Phosphorus (2.5-4.5) mg/dL Total Bilirubin (0.2-1.3) mg/dL AST (14-36) U/L ALT (9-52) U/L Alkaline Phosphatase (38-126) U/L Total Protein (6.3-8.3) g/dL Albumin (3.5-5.0) g/dL Globulin (2.2-3.9) gm/dL Albumin/Globulin Ratio (1.0-2.1) 12/03/16 12/03/16 12/03/16 Range/Units 20:26 19:37 17:46 WBC (4.8-10.8) K/uL RBC (3.80-5.20) Mil/uL Hgb (11.0-16.0) g/dL Hct (34.0-47.0) % MCV (81.0-99.0) fL MCH (27.0-31.0) pg MCHC (33.0-37.0) g/dL RDW (11.5-14.5) % Plt Count (130-400) K/uL MPV (7.2-11.7) fL Sodium (132-148) mmol/L Potassium (3.6-5.2) mmol/L Chloride (98-107) mmol/L Carbon Dioxide (22-30) mmol/L Anion Gap (10-20) BUN (7-17) mg/dL Creatinine (0.7-1.2) MG/DL Est GFR ( Amer) Est GFR (Non-Af Amer) POC Glucose (mg/dL) 123 H 142 H 115 H (65-110) mg/dL Random Glucose (65-105) mg/dL Calcium (8.6-10.4) mg/dl Phosphorus (2.5-4.5) mg/dL Total Bilirubin (0.2-1.3) mg/dL AST (14-36) U/L ALT (9-52) U/L Alkaline Phosphatase (38-126) U/L Total Protein (6.3-8.3) g/dL Albumin (3.5-5.0) g/dL Globulin (2.2-3.9) gm/dL Albumin/Globulin Ratio (1.0-2.1) 12/03/16 12/03/16 12/03/16 Range/Units 16:16 11:37 07:41 WBC (4.8-10.8) K/uL RBC (3.80-5.20) Mil/uL Hgb (11.0-16.0) g/dL Hct (34.0-47.0) % MCV (81.0-99.0) fL MCH (27.0-31.0) pg MCHC (33.0-37.0) g/dL RDW (11.5-14.5) % Plt Count (130-400) K/uL MPV (7.2-11.7) fL Sodium (132-148) mmol/L Potassium (3.6-5.2) mmol/L Chloride (98-107) mmol/L Carbon Dioxide (22-30) mmol/L Anion Gap (10-20) BUN (7-17) mg/dL Creatinine (0.7-1.2) MG/DL Est GFR ( Amer) Est GFR (Non-Af Amer) POC Glucose (mg/dL) 83 163 H 175 H (65-110) mg/dL Random Glucose (65-105) mg/dL Calcium (8.6-10.4) mg/dl Phosphorus (2.5-4.5) mg/dL Total Bilirubin (0.2-1.3) mg/dL AST (14-36) U/L ALT (9-52) U/L Alkaline Phosphatase (38-126) U/L Total Protein (6.3-8.3) g/dL Albumin (3.5-5.0) g/dL Globulin (2.2-3.9) gm/dL Albumin/Globulin Ratio (1.0-2.1) 12/03/16 12/03/16 Range/Units 06:24 06:24 WBC 6.2 (4.8-10.8) K/uL RBC 3.25 L (3.80-5.20) Mil/uL Hgb 9.3 L (11.0-16.0) g/dL Hct 28.4 L (34.0-47.0) % MCV 87.4 (81.0-99.0) fL MCH 28.7 (27.0-31.0) pg MCHC 32.9 L (33.0-37.0) g/dL RDW 14.6 H (11.5-14.5) % Plt Count 144 (130-400) K/uL MPV 9.0 (7.2-11.7) fL Sodium 132 (132-148) mmol/L Potassium 4.0 (3.6-5.2) mmol/L Chloride 96 L (98-107) mmol/L Carbon Dioxide 28 (22-30) mmol/L Anion Gap 12 (10-20) BUN 26 H (7-17) mg/dL Creatinine 4.7 H (0.7-1.2) MG/DL Est GFR ( Amer) 11 Est GFR (Non-Af Amer) 9 POC Glucose (mg/dL) (65-110) mg/dL Random Glucose 150 H (65-105) mg/dL Calcium 8.6 (8.6-10.4) mg/dl Phosphorus 3.8 (2.5-4.5) mg/dL Total Bilirubin 0.8 (0.2-1.3) mg/dL AST 31 (14-36) U/L ALT 23 (9-52) U/L Alkaline Phosphatase 120 (38-126) U/L Total Protein 6.8 (6.3-8.3) g/dL Albumin 2.8 L (3.5-5.0) g/dL Globulin 4.0 H (2.2-3.9) gm/dL Albumin/Globulin Ratio 0.7 L (1.0-2.1) Laboratory Results - last 24 hr 12/03/16 12/03/16 12/03/16 06:24 06:24 07:41 WBC 6.2 RBC 3.25 L Hgb 9.3 L Hct 28.4 L MCV 87.4 MCH 28.7 MCHC 32.9 L RDW 14.6 H Plt Count 144 MPV 9.0 Sodium 132 Potassium 4.0 Chloride 96 L Carbon Dioxide 28 Anion Gap 12 BUN 26 H Creatinine 4.7 H Est GFR ( Amer) 11 Est GFR (Non-Af Amer) 9 POC Glucose (mg/dL) 175 H Random Glucose 150 H Calcium 8.6 Phosphorus 3.8 Total Bilirubin 0.8 AST 31 ALT 23 Alkaline Phosphatase 120 Total Protein 6.8 Albumin 2.8 L Globulin 4.0 H Albumin/Globulin Ratio 0.7 L 12/03/16 12/03/16 12/03/16 11:37 16:16 17:46 WBC RBC Hgb Hct MCV MCH MCHC RDW Plt Count MPV Sodium Potassium Chloride Carbon Dioxide Anion Gap BUN Creatinine Est GFR ( Amer) Est GFR (Non-Af Amer) POC Glucose (mg/dL) 163 H 83 115 H Random Glucose Calcium Phosphorus Total Bilirubin AST ALT Alkaline Phosphatase Total Protein Albumin Globulin Albumin/Globulin Ratio 12/03/16 12/03/16 12/03/16 19:37 20:26 21:07 WBC RBC Hgb Hct MCV MCH MCHC RDW Plt Count MPV Sodium Potassium Chloride Carbon Dioxide Anion Gap BUN Creatinine Est GFR ( Amer) Est GFR (Non-Af Amer) POC Glucose (mg/dL) 142 H 123 H 149 H Random Glucose Calcium Phosphorus Total Bilirubin AST ALT Alkaline Phosphatase Total Protein Albumin Globulin Albumin/Globulin Ratio 12/03/16 12/03/16 12/03/16 22:05 23:01 23:50 WBC RBC Hgb Hct MCV MCH MCHC RDW Plt Count MPV Sodium Potassium Chloride Carbon Dioxide Anion Gap BUN Creatinine Est GFR ( Amer) Est GFR (Non-Af Amer) POC Glucose (mg/dL) 133 H 126 H 148 H Random Glucose Calcium Phosphorus Total Bilirubin AST ALT Alkaline Phosphatase Total Protein Albumin Globulin Albumin/Globulin Ratio 12/04/16 12/04/16 01:49 02:04 WBC RBC Hgb Hct MCV MCH MCHC RDW Plt Count MPV Sodium Potassium Chloride Carbon Dioxide Anion Gap BUN Creatinine Est GFR ( Amer) Est GFR (Non-Af Amer) POC Glucose (mg/dL) 219 H 210 H Random Glucose Calcium Phosphorus Total Bilirubin AST ALT Alkaline Phosphatase Total Protein Albumin Globulin Albumin/Globulin Ratio EKG/Cardiology Studies: Cardiology / EKG Studies 12/04/16 01:00 EKG [ELECTROCARDIOGRAM] Stat Comment: Mode Of Transportation: PORTABLE Reason For Exam: Rapid HR Precautions: Standard Fingerstick Blood Sugar Results: 210 Critical Care Progress Note - Nutrition Nutrition: Nutrition Category Date Time Status NPO Diet [DIET] Diets 12/04/16 Dinner Ordered
[2016-12-04 05:00] LABS: BASO # 0.1 K/uL (0.0-0.2); BASO % 0.5 % (0.0-2.0); EOS # 0.2 K/uL (0.0-0.7); EOS % 1.6 % (0.0-4.0); HEMATOCRIT 29.1 % (34.0-47.0); LYMPH # 0.8 K/uL (1.0-4.3); LYMPH % 5.9 % (20.0-40.0); MEAN CELL VOLUME 87.2 fL (81.0-99.0); MEAN CORPUSCULAR HEMOGLOBIN 27.8 pg (27.0-31.0); MEAN CORPUSCULAR HGB CONC 31.9 g/dL (33.0-37.0); MEAN PLATELET VOLUME 8.9 fL (7.2-11.7); MONO # 1.8 K/uL (0.0-0.8); MONO % 13.8 % (0.0-10.0); NRBC % 0.2 % (0.0-2.0); PLATELET COUNT 159 K/uL (130-400); RED CELL DISTRIBUTION WIDTH 14.7 % (11.5-14.5); WHITE BLOOD COUNT 12.9 K/uL (4.8-10.8)
[2016-12-04 05:03] LABS: CALCIUM 9.1 mg/dl (8.6-10.4); MAGNESIUM 2.4 mg/dL (1.6-2.3)
[2016-12-04 05:04] LABS: POTASSIUM 5.8 mmol/L (3.6-5.2)
[2016-12-04] MEDS: Heparin25000 units/250ml 1/2NS 25,000 UNITS/250 ML BAG IV PRN (05:10)
[2016-12-04 05:12] LABS: ABG ALLEN TEST POS; DRAW SITE RR
[2016-12-04] MEDS ORDERED: Sodium Chloride 0.9% 1,000 ML IV ONE (05:15)
[2016-12-04 06:07] LABS: EOSINOPHIL 3 % (0-4); NEUTROPHIL 78 % (50-75); TOTAL CELLS COUNTED 100
[2016-12-04] MEDS: Docusate-Senna 50 mg-8.6 mg Tab PO SCH ×2 (08:00→21:15)
--- NOTE | 2016-12-04 08:19 | CP.PCM.PN ---
Subjective - Date & Time of Evaluation Date of Evaluation: 12/04/16 Time of Evaluation: 08:16 - Subjective Subjective: PGY1 progress note for Dr. Garzon: Patient seen and examined. Patient on BiPAP. Overnight, patient became agitated with elevated BP and tachycardia. Patient had CTA positive for PE and was started on heparin drip. Patient upgraded to ICU. Patient resting comfortably during exam, and making eye contact, but not verbalizing. Objective - Vital Signs/Intake and Output Vital Signs (last 24 hours): Temp Pulse Resp BP Pulse Ox 97.9 F 93 H 16 146/87 100 12/04/16 04:00 12/04/16 07:44 12/04/16 07:00 12/04/16 07:00 12/04/16 07:00 Intake and Output: 12/04/16 12/04/16 06:59 18:59 Intake Total 369.6 57.3 Output Total 30 0 Balance 339.6 57.3 - Medications Medications: Current Medications Acetaminophen (Tylenol 325mg Tab) 650 mg PO Q6 PRN PRN Reason: temp > 99.5 Last Admin: 11/23/16 18:44 Dose: 650 mg Albuterol Sulfate (Albuterol 0.083% Inhal Angelica (2.5 Mg/3 Ml) Ud) 2.5 mg INH RQ6 [facility] Last Admin: 12/04/16 07:41 Dose: 2.5 mg Alprazolam (Xanax) 0.25 mg PO Q8H PRN PRN Reason: Anxiety Stop: 12/05/16 08:49 Last Admin: 11/28/16 21:41 Dose: 0.25 mg Aspirin (Ecotrin) 81 mg PO DAILY [facility] Last Admin: 12/03/16 12:24 Dose: Not Given Calcium Acetate (Phoslo) 667 mg PO TIDCC [facility] Last Admin: 12/03/16 16:30 Dose: Not Given Epoetin Mik (Procrit) 10,000 unit IV MWF [facility] Last Admin: 12/02/16 10:51 Dose: 10,000 unit Famotidine (Pepcid) 20 mg IVP Q12 [facility] Last Admin: 12/03/16 21:00 Dose: 20 mg Folic Acid (Folic Acid) 1 mg PO DAILY [facility] Last Admin: 12/03/16 12:25 Dose: Not Given Vancomycin HCl 1,000 mg/ (Sodium Chloride) 250 mls @ 166.6 mls/hr IVPB MWF [facility] Last Admin: 12/02/16 14:22 Dose: 166.6 mls/hr Ciprofloxacin (Cipro 200mg/100ml D5w) 100 mls @ 67 mls/hr IVPB Q12H [facility] Last Admin: 12/04/16 04:30 Dose: 67 mls/hr Nitroglycerin/Dextrose (Nitroglycerin 50 Mg/250 Ml D5w) 50 mg in 250 mls @ 7.5 mls/hr IV .Q24H MARYLOU; 25 MCG/MIN PRN Reason: Protocol Last Titration: 12/04/16 02:00 Dose: 0 mcg/min, 0 mls/hr Heparin Sodium/Sodium Chloride (Heparin 43851 Units/250ml 1/2 Normal Saline) 25 ,000 units in 250 mls @ 7.32 mls/hr IV .Q24H PRN; Protocol; 12 UNITS/KG/HR PRN Reason: PROTOCOL Last Admin: 12/04/16 05:10 Dose: 12 units/kg/hr, 7.32 mls/hr Sodium Chloride (Sodium Chloride 0.9%) 1,000 mls @ 50 mls/hr IV .Q20H ONE Stop: 12/05/16 01:14 Last Admin: 12/04/16 06:10 Dose: 50 mls/hr Insulin Human Regular (Novolin R) 0 unit SC ACHS [facility] PRN Reason: Protocol Last Admin: 12/03/16 16:30 Dose: Not Given Lactobacillus Acidophilus (Bacid Acidophilus) 1 cap PO BID [facility] Last Admin: 12/03/16 17:55 Dose: Not Given Losartan Potassium (Cozaar) 100 mg PO DAILY [facility] Last Admin: 12/03/16 12:24 Dose: Not Given Metoprolol Tartrate (Lopressor) 5 mg IVP Q8H [facility] Last Admin: 12/04/16 04:30 Dose: 5 mg Nitroglycerin (Nitrostat Sl Tab) 0.4 mg SL Q15M PRN PRN Reason: chest pain Polyethylene Glycol (Miralax) 17 gm PO Q12H [facility] Last Admin: 12/03/16 21:00 Dose: Not Given Senna/Docusate Sodium (Senokot S 50 Mg-8.6 Mg) 2 tab PO Q12H [facility] Last Admin: 12/03/16 21:00 Dose: Not Given - Labs Labs: 12/04/16 04:56 12/04/16 04:56 PT 11.1 SECONDS (9.7-12.2) 12/04/16 04:56 INR 1.0 12/04/16 04:56 APTT 50 SECONDS (21-34) H 12/04/16 04:56 - Constitutional Appears: No Acute Distress, Confused - Head Exam Head Exam: ATRAUMATIC - Eye Exam Eye Exam: EOMI - GI/Abdominal Exam GI & Abdominal Exam: Soft Additional comments: Chencho drain with purulent drainage - Neurological Exam Neurological Exam: Awake - Skin Skin Exam: Warm Assessment and Plan - Assessment and Plan (Free Text) Assessment: 71 year old female s/p ex lap POD 9 for intra-abdominal abscess -cont chencho drain and monitor output- fluid again more purulent today -hold off on AVF in light of current infection -cont antibiotics per ID -daily dressing changes -medical management per ICU team -further recs per Dr. Garzon
--- NOTE | 2016-12-04 08:21 | CT ---
PROCEDURE: CT Chest with contrast (Pulmonary Angiogram) HISTORY: r/o PE COMPARISON: None available. TECHNIQUE: Axial computed tomography images were obtained of the chest in the pulmonary arterial phase of enhancement. Coronal and sagittal reformatted images were created and reviewed. Intravenous contrast dose: 100 cc of Omnipaque 300 Radiation dose: Total exam DLP = mGy-cm. This CT exam was performed using one or more of the following dose reduction techniques: Automated exposure control, adjustment of the mA and/or kV according to patient size, and/or use of iterative reconstruction technique. FINDINGS: PULMONARY ARTERIES: Unremarkable. No pulmonary embolism. AORTA: No acute findings. No thoracic aortic aneurysm. LUNGS: Mild right upper lobe interstitial infiltrates. PLEURAL SPACES: Small bilateral pleural effusions with compressive atelectasis at the right base. HEART: Unremarkable. No cardiomegaly. No significant pericardial effusion. Pacemaker and leads in place. Right Port-A-Cath in place. LYMPH NODES: No lymphadenopathy. BONES, CHEST WALL: Unremarkable. No fracture or destructive lesion OTHER FINDINGS: Gallstones. IMPRESSION: No pulmonary embolism. Small bilateral pleural effusions with compressive atelectasis at the right base as well as interstitial infiltrates in the right upper lobe.
--- NOTE | 2016-12-04 08:36 | RAD ---
HISTORY: Shortness of breath COMPARISON: 11/27/2016 FINDINGS: LUNGS: Lines and tubes in stable position. Dense confluent consolidative changes in the left hilar region extending into the left mid lung zone. Moderate venous congestion. . PLEURA: As above. CARDIOVASCULAR: Cardiomegaly. OSSEOUS STRUCTURES: No significant abnormalities. VISUALIZED UPPER ABDOMEN: Normal. OTHER FINDINGS: None. IMPRESSION: Lines and tubes in stable position. Dense confluent consolidative changes in the left hilar region extending into the left mid lung zone. Moderate venous congestion. .
--- NOTE | 2016-12-04 09:13 | CT ---
PROCEDURE: CT Abdomen and Pelvis with contrast HISTORY: dx: intraabdominal abscess COMPARISON: 11/24/2016 TECHNIQUE: Contrast dose: 100 mL Visipaque 320 Radiation dose: Information not available due to downtime This CT exam was performed using one or more of the following dose reduction techniques: Automated exposure control, adjustment of the mA and/or kV according to patient size, and/or use of iterative reconstruction technique. FINDINGS: LOWER THORAX: Small bilateral pleural effusion with lower lobe compressive atelectasis. Coronary arterial calcification. Right lower lobe subsegmental atelectasis. LIVER: Unremarkable. No gross lesion or ductal dilatation. GALLBLADDER AND BILE DUCTS: Dependent high attenuation material within gallbladder which may reflect small calculi or milk of calcium bile. Mild thickening of the gallbladder wall with pericholecystic fluid/ inflammatory change. Findings concerning for cholecystitis in the appropriate clinical setting. Consider further evaluation with ultrasound examination. PANCREAS: Unremarkable. No gross lesion or ductal dilatation. SPLEEN: Several punctate calcifications consistent with calcified granulomas. Normal size. No mass. ADRENALS: Unremarkable. No mass. KIDNEYS AND URETERS: Moderately atrophic right kidney and severely atrophic left kidney. Mid right renal cortical cyst, 1.5 cm diameter. No calculus or hydronephrosis. VASCULATURE: Unremarkable. No aortic aneurysm. BOWEL: No bowel obstruction. Diverticulosis of both ascending and descending colon without evidence of diverticulitis. APPENDIX: Not identified. No secondary findings to suggest acute appendicitis. PERITONEUM: No ascites. There is a peripherally enhancing fluid collection in the cul-de-sac measuring approximately 1.0 x 1.0 x 2.5 cm. . A 2nd collection is seen superior to the uterus, measuring 1.2 x 3.8 x 6.1 cm. There is questionable extension of this larger collection towards the right side, extending to the tip of the cecum, associated with some nonspecific coarse calcifications. The possibility of appendicitis must be considered. These collections are concerning for abscesses. The previously demonstrated anterior abdominal abscess is almost completely drained. There is small amount of residual fluid within this abscess. A drainage catheter is seen percutaneously through the left lower anterior abdominal wall. There is a small amount of ascites seen about the liver, most prominently anteriorly and superiorly. There is no generalized ascites noted. LYMPH NODES: Unremarkable. No enlarged lymph nodes. BLADDER: The bladder is nondistended. The wall is thickened. This may reflect poor distention but the possibility of cystitis must be considered given the extent of mural thickening. REPRODUCTIVE: Uterus contains some coarse fundal calcification likely due to calcified degenerated fibroid. BONES: No acute fracture. Grade 1 anterolisthesis at L4-5 without spondylolysis. Likely degenerative in origin. OTHER FINDINGS: None. IMPRESSION: Status post insertion of percutaneous drainage catheter into large anterior abdominal collection, almost completely drained. There are 2 additional discrete collections identified on the current examination, 1 in the cul-de-sac and a larger collection superior to the uterus. This larger collection questionably extends towards the right side in the region of the expected location of the appendix. Cannot rule out appendicitis. Please correlate clinically. Small bilateral pleural effusions and lower lobe compressive atelectasis. Possible bone cholelithiasis with mural thickening and pericholecystic fluid/inflammation. Consider further evaluation with abdominal ultrasound. Thickened bladder wall though the bladder is in a decompressed state. Cannot rule out cystitis. Please correlate with urinalysis. Additional minor findings as above. Preliminary interpretation of this examination was reported by [facility] at 3:38 a.m. on 12/04/2016. There is concurrence of this report with the preliminary interpretation.
[2016-12-04] MEDS: POLYETHYLENE GLYCOL 3350 17 GM/Dose PACKET PO SCH ×2 (09:45→21:15)
[2016-12-04] MEDS: Lactobacillus Acidophilus 500 MU Cap PO SCH ×2 (10:00→18:18)
[2016-12-04] MEDS: Epoetin Alfa 10,000 unit/ml Dialysis IV SCH (10:07)
--- NOTE | 2016-12-04 12:44 | CP.PCM.PN ---
Subjective - Date & Time of Evaluation Date of Evaluation: 12/04/16 Time of Evaluation: 12:37 - Subjective Subjective: Events noted; has had AMS for few days On dialysis now- 3000ml UF; poor flows from cath Still with draining LINK- about [address] abdomen- possible repeat abscesses As per ICU- likely has PE- on IV heparin As per neuro- not likely CVA; recommends stopping of cipro due to AMS BP stable; afebrile ; awake but not verbalizing Objective - Vital Signs/Intake and Output Vital Signs (last 24 hours): Temp Pulse Resp BP Pulse Ox 98.3 F 98 H 20 126/87 100 12/04/16 09:00 12/04/16 11:36 12/04/16 09:00 12/04/16 12:00 12/04/16 09:00 Intake and Output: 12/04/16 12/04/16 06:59 18:59 Intake Total 369.6 343.8 Output Total 30 0 Balance 339.6 343.8 - Medications Medications: Current Medications Acetaminophen (Tylenol 325mg Tab) 650 mg PO Q6 PRN PRN Reason: temp > 99.5 Last Admin: 11/23/16 18:44 Dose: 650 mg Albuterol Sulfate (Albuterol 0.083% Inhal Angelica (2.5 Mg/3 Ml) Ud) 2.5 mg INH RQ6 [facility] Last Admin: 12/04/16 07:41 Dose: 2.5 mg Alprazolam (Xanax) 0.25 mg PO Q8H PRN PRN Reason: Anxiety Stop: 12/05/16 08:49 Last Admin: 11/28/16 21:41 Dose: 0.25 mg Aspirin (Ecotrin) 81 mg PO DAILY [facility] Last Admin: 12/04/16 10:00 Dose: Not Given Calcium Acetate (Phoslo) 667 mg PO TIDCC [facility] Last Admin: 12/04/16 08:00 Dose: Not Given Epoetin Mik (Procrit) 10,000 unit IV MWF [facility] Last Admin: 12/04/16 10:07 Dose: 10,000 unit Famotidine (Pepcid) 20 mg IVP Q12 [facility] Last Admin: 12/04/16 11:09 Dose: 20 mg Folic Acid (Folic Acid) 1 mg PO DAILY [facility] Last Admin: 12/04/16 10:00 Dose: Not Given Heparin Sodium (Porcine) (Heparin) 4,100 units IVP [facility] [place] Last Admin: 12/04/16 10:19 Dose: 4,100 units Vancomycin HCl 1,000 mg/ (Sodium Chloride) 250 mls @ 166.6 mls/hr IVPB MWF [facility] Last Admin: 12/02/16 14:22 Dose: 166.6 mls/hr Nitroglycerin/Dextrose (Nitroglycerin 50 Mg/250 Ml D5w) 50 mg in 250 mls @ 7.5 mls/hr IV .Q24H MARYLOU; 25 MCG/MIN PRN Reason: Protocol Last Titration: 12/04/16 02:00 Dose: 0 mcg/min, 0 mls/hr Heparin Sodium/Sodium Chloride (Heparin 00384 Units/250ml 1/2 Normal Saline) 25 ,000 units in 250 mls @ 7.32 mls/hr IV .Q24H PRN; Protocol; 12 UNITS/KG/HR PRN Reason: PROTOCOL Last Admin: 12/04/16 05:10 Dose: 12 units/kg/hr, 7.32 mls/hr Sodium Chloride (Sodium Chloride 0.9%) 1,000 mls @ 50 mls/hr IV .Q20H ONE Stop: 12/05/16 01:14 Last Admin: 12/04/16 06:10 Dose: 50 mls/hr Metronidazole (Flagyl) 500 mg in 100 mls @ 100 mls/hr IVPB Q8 [facility] Insulin Human Regular (Novolin R) 0 unit SC ACHS [facility] PRN Reason: Protocol Last Admin: 12/03/16 16:30 Dose: Not Given Lactobacillus Acidophilus (Bacid Acidophilus) 1 cap PO BID [facility] Last Admin: 12/04/16 10:00 Dose: Not Given Losartan Potassium (Cozaar) 100 mg PO DAILY [facility] Last Admin: 12/04/16 10:00 Dose: Not Given Metoprolol Tartrate (Lopressor) 5 mg IVP Q8H [facility] Last Admin: 12/04/16 04:30 Dose: 5 mg Nitroglycerin (Nitrostat Sl Tab) 0.4 mg SL Q15M PRN PRN Reason: chest pain Polyethylene Glycol (Miralax) 17 gm PO Q12H [facility] Last Admin: 12/04/16 09:45 Dose: Not Given Senna/Docusate Sodium (Senokot S 50 Mg-8.6 Mg) 2 tab PO Q12H [facility] Last Admin: 12/04/16 08:00 Dose: Not Given - Labs Labs: 12/04/16 04:56 12/04/16 04:56 PT 11.1 SECONDS (9.7-12.2) 12/04/16 04:56 INR 1.0 12/04/16 04:56 APTT 50 SECONDS (21-34) H 12/04/16 04:56 - Constitutional Appears: Toxic, Chronically Ill - Head Exam Head Exam: ATRAUMATIC, NORMAL INSPECTION - Eye Exam Eye Exam: EOMI, Normal appearance - Neck Exam Neck Exam: Normal Inspection. absent: Tenderness - Respiratory Exam Respiratory Exam: Clear to Ausculation Bilateral, NORMAL BREATHING PATTERN - Cardiovascular Exam Cardiovascular Exam: Tachycardia, +S1 - GI/Abdominal Exam GI & Abdominal Exam: Soft. absent: Tenderness - Extremities Exam Extremities Exam: Normal Inspection. absent: Tenderness - Neurological Exam Neurological Exam: Awake, Motor Sensory Deficit - Skin Skin Exam: Dry, Warm Assessment and Plan (1) Type 2 diabetes mellitus with diabetic nephropathy Status: Acute (2) ESRD (end stage renal disease) Status: Chronic (3) Intra-abdominal abscess Status: Resolved (4) Pulmonary emboli Status: Acute (5) Metabolic encephalopathy Status: Acute - Assessment and Plan (Free Text) Plan: IV ABs as per ID Neuro following- repeat EEG; consider stopping cipro IV heparin as per ICU team Dialysis again 12/06- needs adequate UF for continued CHF Surgical follow up for intraabdominal abscesses
--- NOTE | 2016-12-04 13:08 | PN ---
DATE: 12/04/2016 The patient is lying on the bed, in no acute distress, undergoing hemodialysis. PHYSICAL EXAMINATION: VITAL SIGNS: Her blood pressure is 126/87, heart rate is 98 per minute, breathing at a rate of 18 pe r minute, temperature is 98.3 degrees Fahrenheit. HEENT: Normocephalic, atraumatic. NECK: Supple. There are no carotid bruits. LUNGS: Clear. CARDIOVASCULAR: S1, S2 audible. No murmurs. ABDOMEN: Soft and nontender, bowel sounds present. NEUROLOGIC EXAMINATION: MENTAL STATUS: The patient is awake, alert. She looks at the examiner. She does not follow any com mands. She is not verbalizing. CRANIAL NERVES: Pupils are 3 mm, reactive. Extraocular movements are intact. There is no facial as ymmetry. She is moving all 4 extremities. Plantars downgoing bilaterally. LABORATORY DATA: Labs reviewed, shows WBC of 12.9, hemoglobin of 9.3, hematocrit of 29.1 and platele ts of 159. Her sodium is 133, potassium 5.8, chloride 100, carbon dioxide 23, BUN of 32, creatinine 6.0, and glucose of 114. She had MRI of the brain done, which shows no acute intracranial pathology. IMPRESSION: Altered mental status, questionable etiology. Possible intermittent seizure with postic erlinda phenomena versus toxic metabolic encephalopathy. Doubt it is secondary to any catatonia or psych iatric disorder. RECOMMENDATIONS: 1. The patient is currently on ciprofloxacin. Please consider discontinuing it and starting her on any other medication. 2. The patient to have a repeat electroencephalogram. 3. The patient to have hemodialysis. 4. Please continue supportive care and other treatment. 5. The patient apparently had a similar episode a few months ago in another hospital and after that she just got better spontaneously. That makes you feel that maybe it is from a possible seizure as w ell. 6. Please continue other treatment and supportive care. Thank you for the opportunity to participate in the care of this patient. Shazia Hendrickson MD cc: [id number] TT: 12/04/2016 13:08:20 Confirmation # [id number] Dictation # [id number] arnav
[2016-12-04] MEDS: metroNIDAZOLE IV 500 mg/100 ml 500 MG/100 ML BAG IVPB SCH ×2 (16:28→22:35)
--- NOTE | 2016-12-04 18:41 | CP.PCM.PN ---
Subjective - Date & Time of Evaluation Date of Evaluation: 12/04/16 Time of Evaluation: 16:00 - Subjective Subjective: Patient seen and examined in the intensive care unit. Overnight transferred to ICU for shortness of breath and tachycardia the CT angiogram positive for pulmonary embolism Patient started on IV heparin EKG consistent with epileptiform activity Objective - Vital Signs/Intake and Output Vital Signs (last 24 hours): Temp Pulse Resp BP Pulse Ox 98.1 F 105 H 20 125/78 100 12/04/16 12:30 12/04/16 14:00 12/04/16 14:00 12/04/16 14:00 12/04/16 14:00 Intake and Output: 12/04/16 12/04/16 06:59 18:59 Intake Total 369.6 668.3 Output Total 30 20 Balance 339.6 648.3 - Medications Medications: Current Medications Acetaminophen (Tylenol 325mg Tab) 650 mg PO Q6 PRN PRN Reason: temp > 99.5 Last Admin: 11/23/16 18:44 Dose: 650 mg Albuterol Sulfate (Albuterol 0.083% Inhal Angelica (2.5 Mg/3 Ml) Ud) 2.5 mg INH RQ6 [facility] Last Admin: 12/04/16 13:44 Dose: 2.5 mg Alprazolam (Xanax) 0.25 mg PO Q8H PRN PRN Reason: Anxiety Stop: 12/05/16 08:49 Last Admin: 11/28/16 21:41 Dose: 0.25 mg Aspirin (Ecotrin) 81 mg PO DAILY [facility] Last Admin: 12/04/16 10:00 Dose: Not Given Calcium Acetate (Phoslo) 667 mg PO TIDCC [facility] Last Admin: 12/04/16 17:00 Dose: Not Given Epoetin Mik (Procrit) 10,000 unit IV MWF [facility] Last Admin: 12/04/16 10:07 Dose: 10,000 unit Famotidine (Pepcid) 20 mg IVP Q12 [facility] Last Admin: 12/04/16 11:09 Dose: 20 mg Folic Acid (Folic Acid) 1 mg PO DAILY [facility] Last Admin: 12/04/16 10:00 Dose: Not Given Heparin Sodium (Porcine) (Heparin) 4,100 units IVP MWF [facility] Last Admin: 05/17/17 10:19 Dose: 4,100 units Vancomycin HCl 1,000 mg/ (Sodium Chloride) 250 mls @ 166.6 mls/hr IVPB MWF [facility] Last Admin: 12/04/16 13:00 Dose: Not Given Nitroglycerin/Dextrose (Nitroglycerin 50 Mg/250 Ml D5w) 50 mg in 250 mls @ 7.5 mls/hr IV .Q24H MARYLOU; 25 MCG/MIN PRN Reason: Protocol Last Titration: 12/04/16 02:00 Dose: 0 mcg/min, 0 mls/hr Heparin Sodium/Sodium Chloride (Heparin 88211 Units/250ml 1/2 Normal Saline) 25 ,000 units in 250 mls @ 7.32 mls/hr IV .Q24H PRN; Protocol; 12 UNITS/KG/HR PRN Reason: PROTOCOL Last Titration: 12/04/16 15:20 Dose: 7.04 units/kg/hr, 4.3 mls/hr Sodium Chloride (Sodium Chloride 0.9%) 1,000 mls @ 50 mls/hr IV .Q20H ONE Stop: 12/05/16 01:14 Last Admin: 12/04/16 06:10 Dose: 50 mls/hr Metronidazole (Flagyl) 500 mg in 100 mls @ 100 mls/hr IVPB Q8 [facility] Last Admin: 12/04/16 16:28 Dose: 100 mls/hr Insulin Human Regular (Novolin R) 0 unit SC ACHS [facility] PRN Reason: Protocol Last Admin: 12/03/16 16:30 Dose: Not Given Lactobacillus Acidophilus (Bacid Acidophilus) 1 cap PO BID [facility] Last Admin: 12/04/16 18:18 Dose: Not Given Losartan Potassium (Cozaar) 100 mg PO DAILY [facility] Last Admin: 12/04/16 10:00 Dose: Not Given Metoprolol Tartrate (Lopressor) 5 mg IVP Q8H [facility] Last Admin: 12/04/16 11:30 Dose: Not Given Nitroglycerin (Nitrostat Sl Tab) 0.4 mg SL Q15M PRN PRN Reason: chest pain Polyethylene Glycol (Miralax) 17 gm PO Q12H [facility] Last Admin: 12/04/16 09:45 Dose: Not Given Senna/Docusate Sodium (Senokot S 50 Mg-8.6 Mg) 2 tab PO Q12H [facility] Last Admin: 12/04/16 08:00 Dose: Not Given - Labs Labs: 12/04/16 04:56 12/04/16 04:56 PT 11.1 SECONDS (9.7-12.2) 12/04/16 04:56 INR 1.0 12/04/16 04:56 APTT 62 SECONDS (21-34) H D 12/04/16 16:29 - Head Exam Head Exam: ATRAUMATIC, NORMOCEPHALIC - ENT Exam ENT Exam: Mucous Membranes Moist - Neck Exam Neck Exam: Normal Inspection - Respiratory Exam Respiratory Exam: Clear to Ausculation Bilateral - Cardiovascular Exam Cardiovascular Exam: REGULAR RHYTHM Assessment and Plan (1) Pulmonary emboli Assessment & Plan: CT chest consistent with pulmonary embolism Started on anticoagulation Venous Doppler of lower extremities Echocardiogram showed minimal right-sided strain Status: Acute (2) Dyspnea Status: Acute (3) Intra-abdominal abscess Status: Resolved
[2016-12-04] MEDS ORDERED: FOSPHENYTOIN IV STA (18:43)
[2016-12-04] MEDS ORDERED: SODIUM CHLORIDE 0.9% IV STA (18:43)
--- NOTE | 2016-12-04 23:05 | CARD ---
APPROVED REPORT EXAM: Two-dimensional and M-mode echocardiogram with Doppler and color Doppler. Other Information Quality : GoodRhythm : NSR INDICATION Pericardial Effusion Dyspnea FEVER 2D DIMENSIONS LVOT Diameter2.0 (1.8-2.4cm) M-Mode DIMENSIONS RVDd1.11 (2.1-3.2cm)Left Atrium (MM)2.05 (2.5-4.0cm) IVSd1.11 (0.7-1.1cm)Aortic Root2.92 (2.2-3.7cm) LVDd5.03 (4.0-5.6cm)Aortic Cusp Exc.1.11 (1.5-2.0cm) PWd0.97 (0.7-1.1cm)FS (%) 23 % LVDs3.89 (2.0-3.8cm)LVEF (%)46 (>50%) Aortic Valve AoV Peak Knidaoko707.8cm/sAoV VTI33.1cmAO Peak GR.17mmHg LVOT Peak Ugpwmhiq020.7cm/sLVOT VTI18.12cmAO Mean GR.10mmHg [place] (VMAX)1.61pr8WYV (VTI)1.75cm2 Mitral Valve MV E Tgtzltrg022.5cm/sE/A ratio0.0 TDI E/Lateral E'0.0E/Medial E'0.0 LEFT VENTRICLE The left ventricle is normal size. There is borderline concentric left ventricular hypertrophy. Left ventricle systolic function is moderately impaired. The Ejection Fraction is 35-40%. There is hypokinesis in the apical septal wall. Transmitral Doppler flow pattern is abnormal. There is no ventricular septal defect visualized. RIGHT VENTRICLE The right ventricle is normal size. The right ventricular systolic function is normal. ATRIA The left atrium size is normal. Spontaneous contrast in the left atrium. suboptimal The right atrium size is normal. AORTIC VALVE The aortic valve is mildly sclerotic. The aortic valve is tri-cuspid. There is trace aortic regurgitation. There is mild valvular aortic stenosis. Calculated aortic valve area is 1.5 cm2 with maximum pressure gradient of 18 mmHg MITRAL VALVE Mitral annular calcification is moderate. There is no evidence of mitral valve prolapse. Mitral regurgitation is trace. TRICUSPID VALVE The tricuspid valve is not well visualized. There is trace tricuspid regurgitation. PULMONIC VALVE The pulmonic valve is not well visualized. There is no pulmonic valvular regurgitation. GREAT VESSELS The IVC is normal in size and collapses >50% with inspiration. PERICARDIAL EFFUSION There is no pericardial effusion. <Conclusion> There is borderline concentric left ventricular hypertrophy. Left ventricle systolic function is moderately impaired. The Ejection Fraction is 35-40%. There is hypokinesis in the apical septal wall. Transmitral Doppler flow pattern is abnormal. There is trace aortic regurgitation. There is mild valvular aortic stenosis. Mitral regurgitation is trace.
--- NOTE | 2016-12-04 23:48 | CP.PCM.PN ---
Subjective - Date & Time of Evaluation Date of Evaluation: 12/04/16 Time of Evaluation: 18:20 - Subjective Subjective: Pt seen and examined at bedside. Pt smiled at me and when i informed her that she had given me quite a scare, pt asked plaintively, why? Pt has no recollection of what had transpired over the last 3 days and was surprised that so many days had elapsed. Pt still showed episodes of confusion/losing focus, but for the most part, able to participate in conversation now. Objective - Vital Signs/Intake and Output Vital Signs (last 24 hours): Temp Pulse Resp BP Pulse Ox 97.7 F 91 H 16 131/73 100 12/04/16 20:00 12/04/16 23:00 12/04/16 23:00 12/04/16 23:00 12/04/16 23:00 Intake and Output: 12/04/16 12/05/16 18:59 06:59 Intake Total 668.3 417.0 Output Total 20 0 Balance 648.3 417.0 - Medications Medications: Current Medications Acetaminophen (Tylenol 325mg Tab) 650 mg PO Q6 PRN PRN Reason: temp > 99.5 Last Admin: 11/23/16 18:44 Dose: 650 mg Albuterol Sulfate (Albuterol 0.083% Inhal Angelica (2.5 Mg/3 Ml) Ud) 2.5 mg INH RQ6 [facility] Last Admin: 12/04/16 19:27 Dose: 2.5 mg Alprazolam (Xanax) 0.25 mg PO Q8H PRN PRN Reason: Anxiety Stop: 12/05/16 08:49 Last Admin: 11/28/16 21:41 Dose: 0.25 mg Aspirin (Ecotrin) 81 mg PO DAILY [facility] Last Admin: 12/04/16 10:00 Dose: Not Given Calcium Acetate (Phoslo) 667 mg PO TIDCC [facility] Last Admin: 12/04/16 17:00 Dose: Not Given Epoetin Mik (Procrit) 10,000 unit IV MWF [facility] Last Admin: 12/04/16 10:07 Dose: 10,000 unit Famotidine (Pepcid) 20 mg IVP Q12 [facility] Last Admin: 12/04/16 21:10 Dose: 20 mg Folic Acid (Folic Acid) 1 mg PO DAILY [facility] Last Admin: 12/04/16 10:00 Dose: Not Given Heparin Sodium (Porcine) (Heparin) 4,[facility] Last Admin: 12/04/16 10:19 Dose: 4,100 units Vancomycin HCl 1,000 mg/ (Sodium Chloride) 250 mls @ 166.6 mls/hr IVPB MWF [facility] Last Admin: 12/04/16 13:00 Dose: Not Given Nitroglycerin/Dextrose (Nitroglycerin 50 Mg/250 Ml D5w) 50 mg in 250 mls @ 7.5 mls/hr IV .Q24H [facility]ARY[facility]OU; 25 MCG/MIN PRN Reason: Protocol Last Titration: 12/04/16 02:00 Dose: 0 mcg/min, 0 mls/hr Heparin Sodium/Sodium Chloride (Heparin 88433 Units/250ml 1/2 Normal Saline) 25 ,000 units in 250 mls @ 7.32 mls/hr IV .Q24H PRN; Protocol; 12 UNITS/KG/HR PRN Reason: PROTOCOL Last Titration: 12/04/16 15:20 Dose: 9 units/kg/hr, 5.49 mls/hr Sodium Chloride (Sodium Chloride 0.9%) 1,000 mls @ 50 mls/hr IV .Q20H ONE Stop: 12/05/16 01:14 Last Admin: 12/04/16 06:10 Dose: 50 mls/hr Metronidazole (Flagyl) 500 mg in 100 mls @ 100 mls/hr IVPB Q8 [facility] Last Admin: 12/04/16 22:35 Dose: 100 mls/hr Fosphenytoin Sodium 100 mg/ (Sodium Chloride) 52 mls @ 100 mls/hr IV Q8H [facility] Insulin Human Regular (Novolin R) 0 unit SC ACHS [facility] PRN Reason: Protocol Last Admin: 12/03/16 16:30 Dose: Not Given Lactobacillus Acidophilus (Bacid Acidophilus) 1 cap PO BID [facility] Last Admin: 12/04/16 18:18 Dose: Not Given Losartan Potassium (Cozaar) 100 mg PO DAILY [facility] Last Admin: 12/04/16 10:00 Dose: Not Given Metoprolol Tartrate (Lopressor) 5 mg IVP Q8H [facility] Last Admin: 12/04/16 20:30 Dose: 5 mg Nitroglycerin (Nitrostat Sl Tab) 0.4 mg SL Q15M PRN PRN Reason: chest pain Polyethylene Glycol (Miralax) 17 gm PO Q12H [facility] Last Admin: 12/04/16 21:15 Dose: Not Given Senna/Docusate Sodium (Senokot S 50 Mg-8.6 Mg) 2 tab PO Q12H [facility] Last Admin: 12/04/16 21:15 Dose: Not Given - Labs Labs: 12/04/16 04:56 12/04/16 04:56 PT 11.1 SECONDS (9.7-12.2) 12/04/16 04:56 INR 1.0 12/04/16 04:56 APTT 73 SECONDS (21-34) H D 12/04/16 22:38 - Constitutional Appears: No Acute Distress, Confused (occasionally) - Head Exam Head Exam: ATRAUMATIC, NORMAL INSPECTION, NORMOCEPHALIC - Eye Exam Eye Exam: Normal appearance - ENT Exam ENT Exam: Mucous Membranes Moist, Normal Exam - Neck Exam Additional comments: able to turn head - Respiratory Exam Respiratory Exam: Clear to Ausculation Bilateral - Cardiovascular Exam Cardiovascular Exam: REGULAR RHYTHM - GI/Abdominal Exam GI & Abdominal Exam: Hypoactive Bowel Sounds - Rectal Exam Rectal Exam: Deferred - Extremities Exam Extremities Exam: Normal Inspection - Neurological Exam Neurological Exam: Awake, CN II-XII Intact, Reflexes Normal Additional comments: unable to examine reliably atg this time - Psychiatric Exam Psychiatric exam: Normal Affect, Normal Mood - Skin Skin Exam: Dry, Normal Color, Warm Assessment and Plan (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 will continue to monitor Status: Resolved (4) ESRD (end stage renal disease) Assessment & Plan: to continue hemodiaylsis and maybe smooth out the wide swings in ranges of electrolytes Status: Chronic (5) Generalized weakness Assessment & Plan: possible MARIO when stable Status: Chronic (6) Hypertension Assessment & Plan: stable Status: Acute (7) Hyponatremia Assessment & Plan: resolved Status: Resolved
[2016-12-05] MEDS: Albuterol 0.083% Inhal Sol (2.5 mg/3 mL) UD INH SCH ×4 (01:40→20:48)
--- NOTE | 2016-12-05 15:05 | PN ---
DATE: 12/05/2016 NEUROLOGY PROGRESS NOTE SUBJECTIVE: The patient is lying on the bed, in no acute distress. Denies having any headache or di zziness. PHYSICAL EXAMINATION: VITAL SIGNS: Her blood pressure is 153/80. Heart rate is 100 per minute, breathing at a rate of 18 per minute, and is afebrile. HEENT: Normocephalic, atraumatic. NECK: Supple. There are no carotid bruits. LUNGS: Clear. CARDIOVASCULAR: S1, S2 audible. No murmurs. ABDOMEN: Soft, nontender. Bowel sounds present. NEUROLOGIC EXAMINATION: MENTAL STATUS: The patient is awake, alert. She knows she is in the hospital. She recognizes her h usband. She follows all simple commands. CRANIAL NERVES: Pupils are 3 mm bilaterally reactive to light. Visual cui are full. Extraocular movements are intact. There is no facial asymmetry. She is moving all 4 extremities symmetrically. Plantars are downgoing bilaterally. LABORATORY DATA: Reviewed. Electroencephalogram shows bihemispheric frontal sharp waves. IMPRESSION: Status post altered mental status, which appears to be secondary to seizures. RECOMMENDATIONS: 1. The patient was given IV Dilantin yesterday, and after that, the patient started to speak later i n the evening. At the moment, she is a lot better. 2. The patient to be continued on Dilantin 100 mg every 8 hours. 3. The patient to have serum Dilantin level checked in 4-5 days. 4. The patient to have a swallowing evaluation. If she is okay, nasogastric tube may be taken out i f okay from surgical standpoint. 5. Please continue other treatment and supportive care. Thank you for the opportunity to participate in the care of this patient. Shazia Hendrickson MD cc: [id number] TT: 12/05/2016 10:51:45 Confirmation # [id number] Dictation # [id number] marta
--- NOTE | 2016-12-05 15:05 | EEG ---
DATE: 12/05/2016 INTRODUCTION: This is a digitally recorded EEG monitoring using standard EEG montages. BACKGROUND RHYTHM: The EEG shows a background activity of 6-7 Hz theta activity in parietooccipital region. The EEG activity is bilaterally symmetrical and synchronous. There is attenuation of the ba ckground activity on eye opening. ABNORMAL POTENTIALS: Semi-periodic bifrontal sharp waves are seen, more on the left than the right. PHOTIC STIMULATION AND HYPERVENTILATION: Photic stimulation did not reveal any abnormality. Hyperve ntilation was not performed. IMPRESSION: Abnormal EEG. The presence of bifrontal sharp waves is consistent with epileptogenic ac tivity. Clinical correlation is suggested. Shazia Hendrickson MD cc: [id number] TT: 12/05/2016 10:53:10 Confirmation # [id number] Dictation # [id number] dn
--- NOTE | 2016-12-05 15:06 | CARD ---
APPROVED REPORT EKG Measurement Heart [id number] <Conclusion> Sinus tachycardia Nonspecific ST and T wave abnormality Abnormal ECG
--- NOTE | 2016-12-05 15:07 | VASCLAB ---
PROCEDURE: Lower Extremity Venous Duplex Exam. HISTORY: acute PE, eval for residual DVT PRIORS: None. TECHNIQUE: Bilateral common femoral, femoral, popliteal and posterior tibial, peroneal and great saphenous veins were evaluated. Flow was assessed with color Doppler, compressibility, assessment of phasic flow and augmentation response. Report prepared by Rajat Dumont, ROSA, RVT FINDINGS: RIGHT: 1. Common Femoral Vein: 1.1. Compressibility - Fully compressible: Thrombus - None : Flow - Phasic: Augmentation -Normal: Reflux - None. 2. Femoral Vein: 2.1. Compressibility - Fully compressible: Thrombus - None : Flow - Phasic: Augmentation -Normal: Reflux - None. 3. Popliteal Vein: 3.1. Compressibility - Fully compressible: Thrombus - None : Flow - Phasic: Augmentation -Normal: Reflux - None. 4. Posterior Tibial Vein: 4.1. Compressibility - Fully compressible: Thrombus - None: Flow - Phasic: Augmentation -Normal: Reflux - None. 5. Peroneal Vein: 5.1. Compressibility - Fully compressible: Thrombus - None: Flow - Phasic: Augmentation -Normal: Reflux - None. 6. Great Saphenous Vein: 6.1. Compressibility - Fully compressible: Thrombus - None: Flow - Phasic: Augmentation - Normal: Reflux - None. LEFT: 1. Common Femoral Vein: 1.1. Compressibility - Fully compressible: Thrombus - None: Flow - Phasic: Augmentation -Normal: Reflux - None. 2. Femoral Vein: 2.1. Compressibility - Fully compressible: Thrombus - None: Flow - Phasic: Augmentation -Normal: Reflux - None. 3. Popliteal Vein: 3.1. Compressibility - Fully compressible: Thrombus - None : Flow - Phasic: Augmentation -Normal: Reflux - None. 4. Posterior Tibial Vein: 4.1. Compressibility - Fully compressible: Thrombus - None: Flow - Phasic: Augmentation -Normal: Reflux - None. 5. Peroneal Vein: 5.1. Compressibility - Fully compressible: Thrombus - None: Flow - Phasic: Augmentation -Normal: Reflux - None. 6. Great Saphenous Vein: 6.1. Compressibility - Fully compressible: Thrombus - None: Flow - Phasic: Augmentation - Normal: Reflux - None. OTHER FINDINGS: Right: None significant. Left: None significant. IMPRESSION: Right: No evidence of deep or superficial vein thrombosis of the right lower extremity. Normal valve function noted of the right side. Left: No evidence of deep or superficial vein thrombosis of the left lower extremity. Normal valve function noted of the left side.
[2016-12-05] MEDS: Metoprolol 1 mg/ml Inj IVP SCH (21:00)
[2016-12-05] MEDS: Heparin25000 units/250ml 1/2NS 25,000 UNITS/250 ML BAG IV PRN (21:00)
[2016-12-05] MEDS: metroNIDAZOLE IV 500 mg/100 ml 500 MG/100 ML BAG IVPB SCH (21:00)
[2016-12-05] MEDS: Docusate-Senna 50 mg-8.6 mg Tab PO SCH (21:00)
[2016-12-05] MEDS: POLYETHYLENE GLYCOL 3350 17 GM/Dose PACKET PO SCH (21:33)
[2016-12-05 22:36] LABS: BASO # 0.1 K/uL (0.0-0.2); BASO % 0.7 % (0.0-2.0); EOS # 0.3 K/uL (0.0-0.7); EOS % 4.3 % (0.0-4.0); HEMATOCRIT 28.3 % (34.0-47.0); LYMPH # 0.9 K/uL (1.0-4.3); LYMPH % 12.4 % (20.0-40.0); MEAN CORPUSCULAR HEMOGLOBIN 28.2 pg (27.0-31.0); MEAN CORPUSCULAR HGB CONC 32.1 g/dL (33.0-37.0); MEAN PLATELET VOLUME 8.9 fL (7.2-11.7); MONO # 1.5 K/uL (0.0-0.8); MONO % 20.3 % (0.0-10.0); NRBC % 0.1 % (0.0-2.0); PLATELET COUNT 182 K/uL (130-400); WHITE BLOOD COUNT 7.1 K/uL (4.8-10.8)
--- NOTE | 2016-12-05 23:38 | CP.PCM.PN ---
Subjective - Date & Time of Evaluation Date of Evaluation: 12/05/16 Time of Evaluation: 19:15 - Subjective Subjective: Reviewed events of the day, and pt continues to be able to verbalize her needs now. Had started talking again last night. Though with episodes of confusion, pt much improved from before when she did not show any awareness of her surroundings, either in place or people around her. Informed pt too that she had a little setback aside from the paralysis--she got a PE despite having been on heparin prophylaxis q8h. Pt nodded and verbalized understanding. Objective - Vital Signs/Intake and Output Vital Signs (last 24 hours): Temp Pulse Resp BP Pulse Ox 97.6 F 91 H 16 131/73 100 12/05/16 20:00 12/04/16 23:00 12/04/16 23:00 12/04/16 23:00 12/04/16 23:00 Intake and Output: 12/05/16 12/06/16 18:59 06:59 Intake Total 285.4 Balance 285.4 - Medications Medications: Current Medications Acetaminophen (Tylenol 325mg Tab) 650 mg PO Q6 PRN PRN Reason: temp > 99.5 Last Admin: 11/23/16 18:44 Dose: 650 mg Albuterol Sulfate (Albuterol 0.083% Inhal Angelica (2.5 Mg/3 Ml) Ud) 2.5 mg INH RQ6 [facility] Last Admin: 12/05/16 20:48 Dose: 2.5 mg Aspirin (Ecotrin) 81 mg PO DAILY [facility] Last Admin: 12/04/16 10:00 Dose: Not Given Calcium Acetate (Phoslo) 667 mg PO TIDCC [facility] Last Admin: 12/04/16 17:00 Dose: Not Given Epoetin Mik (Procrit) 10,000 unit IV MWF [facility] Last Admin: 12/04/16 10:07 Dose: 10,000 unit Famotidine (Pepcid) 20 mg IVP Q12 [facility] Last Admin: 12/05/16 21:00 Dose: 20 mg Folic Acid (Folic Acid) 1 mg PO DAILY [facility] Last Admin: 12/04/16 10:00 Dose: Not Given Heparin Sodium (Porcine) (Heparin) 4,100 units IVP MWF [facility] Last Admin: 12/04/16 10:19 Dose: 4,100 units Vancomycin HCl 1,000 mg/ (Sodium Chloride) 250 mls @ 166.6 mls/hr IVPB MWF [facility] Last Admin: 12/04/16 13:00 Dose: Not Given Nitroglycerin/Dextrose (Nitroglycerin 50 Mg/250 Ml D5w) 50 mg in 250 mls @ 7.5 mls/hr IV .Q24H MARYLOU; 25 MCG/MIN PRN Reason: Protocol Last Titration: 12/04/16 02:00 Dose: 0 mcg/min, 0 mls/hr Heparin Sodium/Sodium Chloride (Heparin 94423 Units/250ml 1/2 Normal Saline) 25 ,000 units in 250 mls @ 7.32 mls/hr IV .Q24H PRN; Protocol; 12 UNITS/KG/HR PRN Reason: PROTOCOL Last Admin: 12/05/16 21:00 Dose: 9 units/kg/hr, 5.49 mls/hr Metronidazole (Flagyl) 500 mg in 100 mls @ 100 mls/hr IVPB Q8 [facility] Last Admin: 12/05/16 21:00 Dose: 100 mls/hr Fosphenytoin Sodium 100 mg/ (Sodium Chloride) 52 mls @ 100 mls/hr IV Q8H [facility] Insulin Human Regular (Novolin R) 0 unit SC ACHS MARYLOU PRN Reason: Protocol Last Admin: 12/03/16 16:30 Dose: Not Given Lactobacillus Acidophilus (Bacid Acidophilus) 1 cap PO BID [facility] Last Admin: 12/04/16 18:18 Dose: Not Given Losartan Potassium (Cozaar) 100 mg PO DAILY [facility] Last Admin: 12/04/16 10:00 Dose: Not Given Metoprolol Tartrate (Lopressor) 5 mg IVP Q8H [facility] Last Admin: 12/05/16 21:00 Dose: 5 mg Nitroglycerin (Nitrostat Sl Tab) 0.4 mg SL Q15M PRN PRN Reason: chest pain Polyethylene Glycol (Miralax) 17 gm PO Q12H [facility] Last Admin: 12/05/16 21:33 Dose: 17 gm Senna/Docusate Sodium (Senokot S 50 Mg-8.6 Mg) 2 tab PO Q12H [facility] Last Admin: 12/05/16 21:00 Dose: 2 tab - Labs Labs: 12/05/16 06:00 12/04/16 04:56 PT 11.1 SECONDS (9.7-12.2) 12/04/16 04:56 INR 1.0 12/04/16 04:56 APTT 70 SECONDS (21-34) H 12/05/16 06:00 - Constitutional Appears: No Acute Distress - Head Exam Head Exam: ATRAUMATIC, NORMAL INSPECTION, NORMOCEPHALIC - Eye Exam Eye Exam: Normal appearance Pupil Exam: NORMAL ACCOMODATION, PERRL - Neck Exam Neck Exam: Normal Inspection - Respiratory Exam Respiratory Exam: Decreased Breath Sounds (at bases only), Clear to Ausculation Bilateral - Cardiovascular Exam Cardiovascular Exam: REGULAR RHYTHM - GI/Abdominal Exam GI & Abdominal Exam: Soft, Normal Bowel Sounds - Rectal Exam Rectal Exam: Deferred - Extremities Exam Extremities Exam: Normal Capillary Refill, Normal Inspection - Back Exam Back Exam: NORMAL INSPECTION - Neurological Exam Neurological Exam: CN II-XII Intact, Oriented x3 Neuro motor strength exam: Left Upper Extremity: 4, Right Upper Extremity: 4, Left Lower Extremity: 3, Right Lower Extremity: 3 - Psychiatric Exam Psychiatric exam: Normal Affect, Normal Mood - Skin Skin Exam: Dry, Intact, Normal Color Assessment and Plan (1) Intra-abdominal abscess Assessment & Plan: still with drainage and on IV abx, may need to continue at [facility] if it comes to that Status: Suspected (2) Anemia of chronic disease Assessment & Plan: improving, on Procrit Status: Chronic (3) ESRD (end stage renal disease) Status: Chronic (4) Generalized weakness Assessment & Plan: needs [facility] Status: Acute (5) Hypertension Assessment & Plan: has occ elevated spikes but much less than before Status: Acute (6) Hyponatremia Status: Resolved (7) Hypokalemic familial periodic paralysis Status: Resolved
[2016-12-05 23:48] LABS: ALB/GLOB RATIO 0.7 (1.0-2.1); BILIRUBIN,TOTAL 0.7 mg/dL (0.2-1.3); CALCIUM 9.4 mg/dl (8.6-10.4); MAGNESIUM 2.1 mg/dL (1.6-2.3); POTASSIUM 4.6 mmol/L (3.6-5.2); TOTAL PROTEIN 7.2 g/dL (6.3-8.3)
[2016-12-06] MEDS: Fosphenytoin 100 MG in Sodium Chloride 0.9% 50 ML IV SCH ×3 (01:00→17:15)
[2016-12-06] MEDS: Albuterol 0.083% Inhal Sol (2.5 mg/3 mL) UD INH SCH ×4 (01:27→19:34)
[2016-12-06] MEDS: Metoprolol 1 mg/ml Inj IVP SCH (03:00)
[2016-12-06] MEDS: metroNIDAZOLE IV 500 mg/100 ml 500 MG/100 ML BAG IVPB SCH (05:00)
[2016-12-06 06:20] LABS: POTASSIUM 4.8 mmol/L (3.6-5.2)
[2016-12-06 06:22] LABS: ALB/GLOB RATIO 0.8 (1.0-2.1); BILIRUBIN,TOTAL 0.8 mg/dL (0.2-1.3); PHOSPHOROUS 4.6 mg/dL (2.5-4.5); TOTAL PROTEIN 7.6 g/dL (6.3-8.3)
[2016-12-06 06:23] LABS: CALCIUM 9.5 mg/dl (8.6-10.4); MAGNESIUM 2.3 mg/dL (1.6-2.3)
[2016-12-06 06:28] LABS: BASO % 0.6 % (0.0-2.0); EOS # 0.3 K/uL (0.0-0.7); EOS % 3.3 % (0.0-4.0); HEMATOCRIT 31.7 % (34.0-47.0); LYMPH # 0.9 K/uL (1.0-4.3); LYMPH % 11.7 % (20.0-40.0); MEAN CELL VOLUME 87.9 fL (81.0-99.0); MEAN CORPUSCULAR HEMOGLOBIN 28.5 pg (27.0-31.0); MEAN CORPUSCULAR HGB CONC 32.5 g/dL (33.0-37.0); MEAN PLATELET VOLUME 8.6 fL (7.2-11.7); MONO # 1.4 K/uL (0.0-0.8); NRBC % 0.1 % (0.0-2.0); RED CELL DISTRIBUTION WIDTH 15.2 % (11.5-14.5)
[2016-12-06 07:56] LABS: VANCOMYCIN RANDOM 28.02 ug/mL
[2016-12-06] MEDS ORDERED: Nitroglycerin 50mg in D5W 50 MG/250 ML BOTTLE IV SCH (08:15)
[2016-12-06] MEDS: Docusate-Senna 50 mg-8.6 mg Tab PO SCH (08:26)
[2016-12-06 08:42] LABS: EOSINOPHIL 6 % (0-4); NEUTROPHIL 68 % (50-75); TOTAL CELLS COUNTED 100
--- NOTE | 2016-12-06 09:20 | RAD ---
HISTORY: sob COMPARISON: 12/04/2016 FINDINGS: LUNGS: Opacity at medial right lung base not evident on prior examination. Followup advised. Rule out pneumonia versus atelectasis. Left-sided consolidation is not evident on the current examination. PLEURA: No significant pleural effusion identified, no pneumothorax apparent. CARDIOVASCULAR: Nasogastric tube new since prior examination extends to left upper quadrant of abdomen. Right internal jugular central venous dialysis catheter. Left PICC catheter unchanged. OSSEOUS STRUCTURES: No significant abnormalities. VISUALIZED UPPER ABDOMEN: Normal. OTHER FINDINGS: None. IMPRESSION: Questionable medial right basilar consolidation. Follow-up advised. New nasogastric tube.
[2016-12-06] MEDS ORDERED: Metoprolol 1 mg/ml Inj IVP SCH (10:00)
--- NOTE | 2016-12-06 10:02 | CP.PCM.PN ---
Subjective - Date & Time of Evaluation Date of Evaluation: 12/06/16 Time of Evaluation: 09:58 - Subjective Subjective: PGY1 Progress Note for Dr. Garzon: Patient seen and examined. Per nursing, patient was again confused overnight and became agitated. Patient also became tachycardic and tachypneic this morning. Patient on BiPAP during examination. Dialysis to be done today, bedside. Objective - Vital Signs/Intake and Output Vital Signs (last 24 hours): Temp Pulse Resp BP Pulse Ox 97.8 F 126 H 21 150/85 98 12/06/16 04:00 12/06/16 08:15 12/06/16 06:00 12/06/16 06:00 12/06/16 06:00 Intake and Output: 12/06/16 12/06/16 06:59 18:59 Intake Total 889.4 35.4 Balance 889.4 35.4 - Medications Medications: Current Medications Acetaminophen (Tylenol 325mg Tab) 650 mg PO Q6 PRN PRN Reason: temp > 99.5 Last Admin: 11/23/16 18:44 Dose: 650 mg Albuterol Sulfate (Albuterol 0.083% Inhal Angelica (2.5 Mg/3 Ml) Ud) 2.5 mg INH RQ6 [facility] Last Admin: 12/06/16 07:40 Dose: 2.5 mg Aspirin (Ecotrin) 81 mg PO DAILY [facility] Last Admin: 12/04/16 10:00 Dose: Not Given Calcium Acetate (Phoslo) 667 mg PO TIDCC [facility] Last Admin: 12/06/16 08:23 Dose: 667 mg Epoetin Mik (Procrit) 10,000 unit IV [facility] Last Admin: 12/04/16 10:07 Dose: 10,000 unit Famotidine (Pepcid) 20 mg PO DAILY [facility] Folic Acid (Folic Acid) 1 mg PO DAILY [facility] Last Admin: 12/04/16 10:00 Dose: Not Given Heparin Sodium (Porcine) (Heparin) 4,100 units IVP [facility] Last Admin: 12/04/16 10:19 Dose: 4,100 units Vancomycin HCl 1,000 mg/ (Sodium Chloride) 250 mls @ 166.6 mls/hr IVPB [facility] Last Admin: 12/04/16 13:00 Dose: Not Given Heparin Sodium/Sodium Chloride (Heparin 96695 Units/250ml 1/2 Normal Saline) 25 ,000 units in 250 mls @ 7.32 mls/hr IV .Q24H PRN; Protocol; 12 UNITS/KG/HR PRN Reason: PROTOCOL Last Admin: 12/05/16 21:00 Dose: 9 units/kg/hr, 5.49 mls/hr Metronidazole (Flagyl) 500 mg in 100 mls @ 100 mls/hr IVPB Q8 [facility] Last Admin: 12/06/16 05:00 Dose: 100 mls/hr Fosphenytoin Sodium 100 mg/ (Sodium Chloride) 52 mls @ 100 mls/hr IV Q8H [facility] Last Admin: 12/06/16 01:00 Dose: 100 mls/hr Nitroglycerin/Dextrose (Nitroglycerin 50 Mg/250 Ml D5w) 50 mg in 250 mls @ 7.5 mls/hr IV .Q24H MARYLOU; 25 MCG/MIN PRN Reason: Protocol Insulin Human Regular (Novolin R) 0 unit SC ACHS [facility] PRN Reason: Protocol Last Admin: 12/03/16 16:30 Dose: Not Given Lactobacillus Acidophilus (Bacid Acidophilus) 1 cap PO BID [facility] Last Admin: 12/04/16 18:18 Dose: Not Given Losartan Potassium (Cozaar) 100 mg PO DAILY [facility] Last Admin: 12/04/16 10:00 Dose: Not Given Metoprolol Tartrate (Lopressor) 5 mg IVP Q12 [facility]ARY[facility] Nitroglycerin (Nitrostat Sl Tab) 0.4 mg SL Q15M PRN PRN Reason: chest pain Polyethylene Glycol (Miralax) 17 gm PO Q12H [facility] Last Admin: 12/05/16 21:33 Dose: 17 gm Senna/Docusate Sodium (Senokot S 50 Mg-8.6 Mg) 2 tab PO Q12H [facility] Last Admin: 12/06/16 08:26 Dose: 2 tab - Labs Labs: 12/06/16 06:04 12/06/16 06:04 PT 11.1 SECONDS (9.7-12.2) 12/04/16 04:56 INR 1.0 12/04/16 04:56 APTT 69 SECONDS (21-34) H 12/06/16 06:04 - Constitutional Appears: No Acute Distress, Confused - Head Exam Head Exam: ATRAUMATIC - Respiratory Exam Additional comments: on BiPAP - GI/Abdominal Exam GI & Abdominal Exam: Soft. absent: Tenderness Additional comments: midline incision without drainage silva drain with seropurulent drainage- 50 cc o/n Assessment and Plan - Assessment and Plan (Free Text) Assessment: 71 year old female s/p ex lap POD 11 for intra-abdominal abscess -cont silva drain and monitor output -hold off on AVF in light of current infection -cont antibiotics -daily dressing changes -medical management per ICU team -D/W Dr. Garzon
--- NOTE | 2016-12-06 10:48 | CP.CCUPN ---
<Dale Richardson - Last Filed: 12/06/16 10:44> CCU Subjective - Physician Review Subjective (Free Text): 12/06/16 10:44 PGY-1 ICU progress note Pt seen and examined at bedside. Pt agitated overnight. This morning pt became tachypneic, hypertensive and tachycardic, complaining of sob. CXR was ordered and she was put on BiPAP. Her symptoms resolved and her tachycardia, tachypnea and HTN resolved. Pt felt much better afterwards. Denied any further sob, denied fevers, chills, chest pain, palpitations, abdominal pain, nausea or vomiting. Critical Care Time Spent (in minutes): 35 CCU Objective - Vital Signs / Intake & Output Vital Signs (Last 4 hours): Vital Signs Pulse 12/06/16 08:15 126 H Intake and Output (Last 8hrs): Intake & Output 12/05/16 12/06/16 12/06/16 22:59 06:59 14:59 Intake Total 456.2 433.2 35.4 Balance 456.2 433.2 35.4 Weight 135 lb 8 oz Intake: IV 250 Intake, IV Amount 116.2 193.2 5.4 Left Distal Port PICC 100 150 Left PICC 16.2 43.2 5.4 Tube Feeding 90 240 30 - Physical Exam Head: Positive for: Atraumatic, Normocephalic Pupils: Positive for: PERRL Extroacular Muscles: Positive for: EOMI Mouth: Positive for: Moist Mucous Membranes Respiratory/Chest: Positive for: Wheezes, Decreased Breath Sounds, Rales ( bibasilar). Negative for: Clear to Auscultation, Accessory Muscle Use, Rhonchi Cardiovascular: Positive for: Normal S1, S2, Peripheal Pulses Present, Tachycardic. Negative for: Regular Rate and Rhythm, Murmurs Abdomen: Positive for: Tenderness (surrounding incision), Normal Bowel Sounds, Other (dressing in place: clean, dry, intact). Negative for: Distention, Rebound, Guarding Upper Extremity: Positive for: NORMAL PULSES, Neurovascularly Intact Lower Extremity: Positive for: NORMAL PULSES, Neurovascularly Intact. Negative for: CALF TENDERNESS Neurological: Positive for: CN II-XII Intact, Speech Normal, Motor Func Grossly Intact Skin: Positive for: Warm, Dry Psychiatric: Positive for: Alert, Oriented x 3 - Medications Active Medications: Active Medications Generic Name Dose Route Start Last Admin Trade Name Freq PRN Reason Stop Dose Admin Acetaminophen 650 mg 11/11/16 19:17 11/23/16 18:44 Tylenol 325mg Tab PO 650 mg Q6 PRN Administration temp > 99.5 Albuterol Sulfate 2.5 mg 11/30/16 02:00 12/06/16 07:40 Albuterol 0.083% Inhal Angelica (2.5 Mg/3 Ml) Ud INH 2.5 mg RQ6 MARYLOU Administration Aspirin 81 mg 12/03/16 10:00 12/04/16 10:00 Ecotrin PO Not Given DAILY [facility] Calcium Acetate 667 mg 11/27/16 17:00 12/06/16 08:23 Phoslo PO 667 mg TIDCC [facility] Administration Epoetin Mik 10,000 unit 11/13/16 09:00 12/04/16 10:07 Procrit IV 10,000 unit [facility] Administration Famotidine 20 mg 12/06/16 10:00 Pepcid PO DAILY [facility] Folic Acid 1 mg 11/19/16 10:00 12/04/16 10:00 Folic Acid PO Not Given DAILY [facility] Heparin Sodium (Porcine) 4,100 units 12/04/16 10:00 12/04/16 10:19 Heparin IVP 4,100 units MWF [facility] Administration Vancomycin HCl 1,000 mg/ 250 mls @ 166.6 mls/hr 11/25/16 09:00 12/04/16 13:00 Sodium Chloride IVPB Not Given [facility] Heparin Sodium/Sodium Chloride 25,000 units in 250 mls @ 7.32 mls/hr 12/04/16 03:42 12/05/16 21:00 Heparin 39756 Units/250ml 1/2 Normal Saline IV 9 units/kg/hr .Q24H PRN 5.49 mls/hr PROTOCOL Administration Protocol 12 UNITS/KG/HR Metronidazole 500 mg in 100 mls @ 100 mls/hr 12/04/16 14:00 12/06/16 05:00 Flagyl IVPB 100 mls/hr Q8 [facility] Administration Fosphenytoin Sodium 100 mg/ 52 mls @ 100 mls/hr 12/05/16 02:00 12/06/16 01:00 Sodium Chloride IV 100 mls/hr Q8H [facility] Administration Nitroglycerin/Dextrose 50 mg in 250 mls @ 7.5 mls/hr 12/06/16 08:15 Nitroglycerin 50 Mg/250 Ml D5w IV .Q24H MARYLOU Protocol 25 MCG/MIN Insulin Human Regular 0 unit 12/02/16 22:00 12/03/16 16:30 Novolin R SC Not Given ACHS [facility] Protocol Lactobacillus Acidophilus 1 cap 11/16/16 18:00 12/04/16 18:18 Bacid Acidophilus PO Not Given BID MARYLOU Losartan Potassium 100 mg 11/22/16 12:30 12/04/16 10:00 Cozaar PO Not Given DAILY MARYLOU Metoprolol Tartrate 25 mg 12/06/16 10:30 Lopressor PO BID MARYLOU Nitroglycerin 0.4 mg 11/12/16 18:57 Nitrostat Sl Tab SL Q15M PRN chest pain Polyethylene Glycol 17 gm 11/29/16 21:45 12/05/16 21:33 Miralax PO 17 gm Q12H MARYLOU Administration Senna/Docusate Sodium 2 tab 11/28/16 09:00 12/06/16 08:26 Senokot S 50 Mg-8.6 Mg PO 2 tab Q12H MARYLOU Administration - Patient Studies Lab Studies: Lab Studies 12/06/16 12/06/16 12/06/16 Range/Units 06:58 06:04 06:04 WBC (4.8-10.8) K/uL RBC (3.80-5.20) Mil/uL Hgb (11.0-16.0) g/dL Hct (34.0-47.0) % MCV (81.0-99.0) fL MCH (27.0-31.0) pg MCHC (33.0-37.0) g/dL RDW (11.5-14.5) % Plt Count (130-400) K/uL MPV (7.2-11.7) fL Neut % (Auto) (50.0-75.0) % Lymph % (Auto) (20.0-40.0) % Richardson % (Auto) (0.0-10.0) % Eos % (Auto) (0.0-4.0) % Baso % (Auto) (0.0-2.0) % Neut # (1.8-7.0) K/uL Lymph # (1.0-4.3) K/uL Richardson # (0.0-0.8) K/uL Eos # (0.0-0.7) K/uL Baso # (0.0-0.2) K/uL Neutrophils % (Manual) (50-75) % Lymphocytes % (Manual) (20-40) % Monocytes % (Manual) (0-10) % Eosinophils % (Manual) (0-4) % Platelet Estimate (NORMAL) Hypochromasia (manual) Poikilocytosis (manual Anisocytosis (manual) Target Cells Ovalocytes APTT 69 H (21-34) SECONDS Sodium 133 (132-148) mmol/L Potassium 4.8 (3.6-5.2) mmol/L Chloride 96 L (98-107) mmol/L Carbon Dioxide 26 (22-30) mmol/L Anion Gap 16 (10-20) BUN 35 H (7-17) mg/dL Creatinine 6.3 H (0.7-1.2) MG/DL Est GFR ( Amer) 8 Est GFR (Non-Af Amer) 7 POC Glucose (mg/dL) (65-110) mg/dL Random Glucose 168 H (65-105) mg/dL Calcium 9.5 (8.6-10.4) mg/dl Phosphorus 4.6 H (2.5-4.5) mg/dL Magnesium 2.3 (1.6-2.3) mg/dL Total Bilirubin 0.8 (0.2-1.3) mg/dL AST 24 (14-36) U/L ALT 16 (9-52) U/L Alkaline Phosphatase 145 H (38-126) U/L Total Protein 7.6 (6.3-8.3) g/dL Albumin 3.3 L (3.5-5.0) g/dL Globulin 4.3 H (2.2-3.9) gm/dL Albumin/Globulin Ratio 0.8 L (1.0-2.1) Random Vancomycin 28.02 ug/mL Phenytoin 10.9 (10-20) ug/mL 12/06/16 12/05/16 12/05/16 Range/Units 06:04 23:34 17:32 WBC 8.0 (4.8-10.8) K/uL RBC 3.61 L (3.80-5.20) Mil/uL Hgb 10.3 L (11.0-16.0) g/dL Hct 31.7 L (34.0-47.0) % MCV 87.9 (81.0-99.0) fL MCH 28.5 (27.0-31.0) pg MCHC 32.5 L (33.0-37.0) g/dL RDW 15.2 H (11.5-14.5) % Plt Count 212 (130-400) K/uL MPV 8.6 (7.2-11.7) fL Neut % (Auto) 66.4 (50.0-75.0) % Lymph % (Auto) 11.7 L (20.0-40.0) % Richardson % (Auto) 18.0 H (0.0-10.0) % Eos % (Auto) 3.3 (0.0-4.0) % Baso % (Auto) 0.6 (0.0-2.0) % Neut # 5.3 (1.8-7.0) K/uL Lymph # 0.9 L (1.0-4.3) K/uL Richardson # 1.4 H (0.0-0.8) K/uL Eos # 0.3 (0.0-0.7) K/uL Baso # 0.0 (0.0-0.2) K/uL Neutrophils % (Manual) (50-75) % Lymphocytes % (Manual) (20-40) % Monocytes % (Manual) (0-10) % Eosinophils % (Manual) (0-4) % Platelet Estimate (NORMAL) Hypochromasia (manual) Poikilocytosis (manual Anisocytosis (manual) Target Cells Ovalocytes APTT (21-34) SECONDS Sodium (132-148) mmol/L Potassium (3.6-5.2) mmol/L Chloride (98-107) mmol/L Carbon Dioxide (22-30) mmol/L Anion Gap (10-20) BUN (7-17) mg/dL Creatinine (0.7-1.2) MG/DL Est GFR ( Amer) Est GFR (Non-Af Amer) POC Glucose (mg/dL) 155 H 207 H (65-110) mg/dL Random Glucose (65-105) mg/dL Calcium (8.6-10.4) mg/dl Phosphorus (2.5-4.5) mg/dL Magnesium (1.6-2.3) mg/dL Total Bilirubin (0.2-1.3) mg/dL AST (14-36) U/L ALT (9-52) U/L Alkaline Phosphatase (38-126) U/L Total Protein (6.3-8.3) g/dL Albumin (3.5-5.0) g/dL Globulin (2.2-3.9) gm/dL Albumin/Globulin Ratio (1.0-2.1) Random Vancomycin ug/mL Phenytoin (10-20) ug/mL 12/05/16 12/05/16 12/05/16 Range/Units 11:42 06:00 06:00 WBC (4.8-10.8) K/uL RBC (3.80-5.20) Mil/uL Hgb (11.0-16.0) g/dL Hct (34.0-47.0) % MCV (81.0-99.0) fL MCH (27.0-31.0) pg MCHC (33.0-37.0) g/dL RDW (11.5-14.5) % Plt Count (130-400) K/uL MPV (7.2-11.7) fL Neut % (Auto) (50.0-75.0) % Lymph % (Auto) (20.0-40.0) % Richardson % (Auto) (0.0-10.0) % Eos % (Auto) (0.0-4.0) % Baso % (Auto) (0.0-2.0) % Neut # (1.8-7.0) K/uL Lymph # (1.0-4.3) K/uL Richardson # (0.0-0.8) K/uL Eos # (0.0-0.7) K/uL Baso # (0.0-0.2) K/uL Neutrophils % (Manual) (50-75) % Lymphocytes % (Manual) (20-40) % Monocytes % (Manual) (0-10) % Eosinophils % (Manual) (0-4) % Platelet Estimate (NORMAL) Hypochromasia (manual) Poikilocytosis (manual Anisocytosis (manual) Target Cells Ovalocytes APTT 70 H (21-34) SECONDS Sodium 134 (132-148) mmol/L Potassium 4.6 (3.6-5.2) mmol/L Chloride 96 L (98-107) mmol/L Carbon Dioxide 25 (22-30) mmol/L Anion Gap 18 (10-20) BUN 21 H (7-17) mg/dL Creatinine 5.1 H (0.7-1.2) MG/DL Est GFR ( Amer) 10 Est GFR (Non-Af Amer) 8 POC Glucose (mg/dL) 172 H (65-110) mg/dL Random Glucose 129 H (65-105) mg/dL Calcium 9.4 (8.6-10.4) mg/dl Phosphorus 6.0 H (2.5-4.5) mg/dL Magnesium 2.1 (1.6-2.3) mg/dL Total Bilirubin 0.7 (0.2-1.3) mg/dL AST 29 (14-36) U/L ALT 23 (9-52) U/L Alkaline Phosphatase 130 H (38-126) U/L Total Protein 7.2 (6.3-8.3) g/dL Albumin 2.9 L (3.5-5.0) g/dL Globulin 4.3 H (2.2-3.9) gm/dL Albumin/Globulin Ratio 0.7 L (1.0-2.1) Random Vancomycin ug/mL Phenytoin (10-20) ug/mL 12/05/16 Range/Units 06:00 WBC 7.1 (4.8-10.8) K/uL RBC 3.22 L (3.80-5.20) Mil/uL Hgb 9.1 L (11.0-16.0) g/dL Hct 28.3 L (34.0-47.0) % MCV 88.0 (81.0-99.0) fL MCH 28.2 (27.0-31.0) pg MCHC 32.1 L (33.0-37.0) g/dL RDW 15.0 H (11.5-14.5) % Plt Count 182 (130-400) K/uL MPV 8.9 (7.2-11.7) fL Neut % (Auto) 62.3 (50.0-75.0) % Lymph % (Auto) 12.4 L (20.0-40.0) % Richardson % (Auto) 20.3 H (0.0-10.0) % Eos % (Auto) 4.3 H (0.0-4.0) % Baso % (Auto) 0.7 (0.0-2.0) % Neut # 4.4 (1.8-7.0) K/uL Lymph # 0.9 L (1.0-4.3) K/uL Richardson # 1.5 H (0.0-0.8) K/uL Eos # 0.3 (0.0-0.7) K/uL Baso # 0.1 (0.0-0.2) K/uL Neutrophils % (Manual) 68 (50-75) % Lymphocytes % (Manual) 8 L (20-40) % Monocytes % (Manual) 18 H (0-10) % Eosinophils % (Manual) 6 H (0-4) % Platelet Estimate Normal (NORMAL) Hypochromasia (manual) Slight Poikilocytosis (manual Slight Anisocytosis (manual) Slight Target Cells Slight Ovalocytes Slight APTT (21-34) SECONDS Sodium (132-148) mmol/L Potassium (3.6-5.2) mmol/L Chloride (98-107) mmol/L Carbon Dioxide (22-30) mmol/L Anion Gap (10-20) BUN (7-17) mg/dL Creatinine (0.7-1.2) MG/DL Est GFR ( Amer) Est GFR (Non-Af Amer) POC Glucose (mg/dL) (65-110) mg/dL Random Glucose (65-105) mg/dL Calcium (8.6-10.4) mg/dl Phosphorus (2.5-4.5) mg/dL Magnesium (1.6-2.3) mg/dL Total Bilirubin (0.2-1.3) mg/dL AST (14-36) U/L ALT (9-52) U/L Alkaline Phosphatase (38-126) U/L Total Protein (6.3-8.3) g/dL Albumin (3.5-5.0) g/dL Globulin (2.2-3.9) gm/dL Albumin/Globulin Ratio (1.0-2.1) Random Vancomycin ug/mL Phenytoin (10-20) ug/mL Laboratory Results - last 24 hr 12/05/16 12/05/16 12/05/16 06:00 06:00 06:00 WBC 7.1 RBC 3.22 L Hgb 9.1 L Hct 28.3 L MCV 88.0 MCH 28.2 MCHC 32.1 L RDW 15.0 H Plt Count 182 MPV 8.9 Neut % (Auto) 62.3 Lymph % (Auto) 12.4 L Richardson % (Auto) 20.3 H Eos % (Auto) 4.3 H Baso % (Auto) 0.7 Neut # 4.4 Lymph # 0.9 L Richardson # 1.5 H Eos # 0.3 Baso # 0.1 Neutrophils % (Manual) 68 Lymphocytes % (Manual) 8 L Monocytes % (Manual) 18 H Eosinophils % (Manual) 6 H Platelet Estimate Normal Hypochromasia (manual) Slight Poikilocytosis (manual Slight Anisocytosis (manual) Slight Target Cells Slight Ovalocytes Slight APTT 70 H Sodium 134 Potassium 4.6 Chloride 96 L Carbon Dioxide 25 Anion Gap 18 BUN 21 H Creatinine 5.1 H Est GFR ( Amer) 10 Est GFR (Non-Af Amer) 8 POC Glucose (mg/dL) Random Glucose 129 H Calcium 9.4 Phosphorus 6.0 H Magnesium 2.1 Total Bilirubin 0.7 AST 29 ALT 23 Alkaline Phosphatase 130 H Total Protein 7.2 Albumin 2.9 L Globulin 4.3 H Albumin/Globulin Ratio 0.7 L Random Vancomycin Phenytoin 12/05/16 12/05/16 12/05/16 11:42 17:32 23:34 WBC RBC Hgb Hct MCV MCH MCHC RDW Plt Count MPV Neut % (Auto) Lymph % (Auto) Richardson % (Auto) Eos % (Auto) Baso % (Auto) Neut # Lymph # Richardson # Eos # Baso # Neutrophils % (Manual) Lymphocytes % (Manual) Monocytes % (Manual) Eosinophils % (Manual) Platelet Estimate Hypochromasia (manual) Poikilocytosis (manual Anisocytosis (manual) Target Cells Ovalocytes APTT Sodium Potassium Chloride Carbon Dioxide Anion Gap BUN Creatinine Est GFR ( Amer) Est GFR (Non-Af Amer) POC Glucose (mg/dL) 172 H 207 H 155 H Random Glucose Calcium Phosphorus Magnesium Total Bilirubin AST ALT Alkaline Phosphatase Total Protein Albumin Globulin Albumin/Globulin Ratio Random Vancomycin Phenytoin 12/06/16 12/06/16 12/06/16 06:04 06:04 06:04 WBC 8.0 RBC 3.61 L Hgb 10.3 L Hct 31.7 L MCV 87.9 MCH 28.5 MCHC 32.5 L RDW 15.2 H Plt Count 212 MPV 8.6 Neut % (Auto) 66.4 Lymph % (Auto) 11.7 L Richardson % (Auto) 18.0 H Eos % (Auto) 3.3 Baso % (Auto) 0.6 Neut # 5.3 Lymph # 0.9 L Richardson # 1.4 H Eos # 0.3 Baso # 0.0 Neutrophils % (Manual) Lymphocytes % (Manual) Monocytes % (Manual) Eosinophils % (Manual) Platelet Estimate Hypochromasia (manual) Poikilocytosis (manual Anisocytosis (manual) Target Cells Ovalocytes APTT 69 H Sodium 133 Potassium 4.8 Chloride 96 L Carbon Dioxide 26 Anion Gap 16 BUN 35 H Creatinine 6.3 H Est GFR ( Amer) 8 Est GFR (Non-Af Amer) 7 POC Glucose (mg/dL) Random Glucose 168 H Calcium 9.5 Phosphorus 4.6 H Magnesium 2.3 Total Bilirubin 0.8 AST 24 ALT 16 Alkaline Phosphatase 145 H Total Protein 7.6 Albumin 3.3 L Globulin 4.3 H Albumin/Globulin Ratio 0.8 L Random Vancomycin Phenytoin 12/06/16 06:58 WBC RBC Hgb Hct MCV MCH MCHC RDW Plt Count MPV Neut % (Auto) Lymph % (Auto) Richardson % (Auto) Eos % (Auto) Baso % (Auto) Neut # Lymph # Richardson # Eos # Baso # Neutrophils % (Manual) Lymphocytes % (Manual) Monocytes % (Manual) Eosinophils % (Manual) Platelet Estimate Hypochromasia (manual) Poikilocytosis (manual Anisocytosis (manual) Target Cells Ovalocytes APTT Sodium Potassium Chloride Carbon Dioxide Anion Gap BUN Creatinine Est GFR ( Amer) Est GFR (Non-Af Amer) POC Glucose (mg/dL) Random Glucose Calcium Phosphorus Magnesium Total Bilirubin AST ALT Alkaline Phosphatase Total Protein Albumin Globulin Albumin/Globulin Ratio Random Vancomycin 28.02 Phenytoin 10.9 Fingerstick Blood Sugar Results: 168 Review of Systems - Review of Systems All systems: reviewed and no additional remarkable complaints except (where noted in HPI) Critical Care Progress Note - Nutrition Nutrition: Nutrition Category Date Time Status Dysphagia/Modified Consistency Diet [DIET] Diets 12/06/16 Lunch Active Assessment/Plan - Assessment and Plan (Free Text) Assessment: 71 yo F with sepsis secondary to intra-abdominal abscess s/p ex-lap POD#11, complicated by PE on heparin drip and newly diagnosed seizures on Cerebryx. Pt is hemodynamically stable with continued episodes of agitation Plan: Neuro/Psych: Agitated at times, Xanax PRN. Cerebryx 100mg Q8H per neuro for seizure ppx Continue to monitor Pulm: Has episodes of tachypnea while maintaining saturations BiPAP PRN, Duonebs PRN Monitor and maintain sats > 90% Continue Hep drip for PE CV: Hemodynamically stable Changed Metoprolol to 25mg PO BID Continue to monitor GI: NG tube out Renal diet, modified/dysphagia No acute issues Renal: ESRD on HD. Nephro following, HD today. Will continue to monitor electrolytes Heme: Heparin drip Continue to monitor H/H ID: ID following - f/u with recommendations Continue IV abx Endo: No acute issues DVT proph - Heparin drip GI proph - Pepcid PO Daily Anaya for strict I/O's during acute illness Code status - full code <ArchieGunnar kearney M - Last Filed: 12/12/16 15:17> CCU Objective - Vital Signs / Intake & Output Intake and Output (Last 8hrs): Intake & Output 12/12/16 12/12/16 12/12/16 06:59 14:59 22:59 Intake Total 100 Output Total 10 Balance 90 Intake: Oral 100 Output: Drainage 10 Lower Abdomen 10 - Medications Active Medications: Active Medications Generic Name Dose Route Start Last Admin Trade Name Freq PRN Reason Stop Dose Admin Acetaminophen 650 mg 11/11/16 19:17 11/23/16 18:44 Tylenol 325mg Tab PO 650 mg Q6 PRN Administration temp > 99.5 Albuterol/Ipratropium 3 ml 12/11/16 14:00 12/12/16 13:20 Duoneb 3 Mg/0.5 Mg (3 Ml) Ud INH 3 ml RQ6 MARYLOU Administration Apixaban 5 mg 12/12/16 10:00 12/12/16 10:19 Eliquis PO 5 mg DAILY MARYLOU Administration Aspirin 81 mg 12/03/16 10:00 12/12/16 10:20 Ecotrin PO 81 mg DAILY MARYLOU Administration Calcium Acetate 667 mg 11/27/16 17:00 12/12/16 12:00 Phoslo PO 667 mg TIDCC MARYLOU Administration Docusate Sodium 100 mg 12/06/16 21:30 12/12/16 10:19 Colace PO 100 mg BID MARYLOU Administration Epoetin Mik 10,000 unit 12/11/16 10:23 12/11/16 10:57 Procrit IV 12/21/16 11:00 10,000 unit MWF MARYLOU Administration Famotidine 20 mg 12/06/16 10:00 12/12/16 10:19 Pepcid PO 20 mg DAILY MARYLOU Administration Folic Acid 1 mg 11/19/16 10:00 12/12/16 10:18 Folic Acid PO 1 mg DAILY MARYLOU Administration Insulin Human Regular 0 unit 12/02/16 22:00 12/12/16 12:00 Novolin R SC Not Given ACHS [facility] Protocol Lactobacillus Acidophilus 1 cap 11/16/16 18:00 12/12/16 10:19 Bacid Acidophilus PO 1 cap BID MARYLOU Administration Levetiracetam 250 mg 12/12/16 10:00 12/12/16 10:18 Keppra PO 250 mg BID MARYLOU Administration Losartan Potassium 100 mg 11/22/16 12:30 12/12/16 10:18 Cozaar PO 100 mg DAILY MARYLOU Administration Metoprolol Tartrate 25 mg 12/06/16 10:30 12/12/16 10:18 Lopressor PO 25 mg BID MARYLOU Administration Nitroglycerin 0.4 mg 11/12/16 18:57 Nitrostat Sl Tab SL Q15M PRN chest pain - Patient Studies Lab Studies: Microbiology Studies 12/09/16 Unknown Gram Stain - Final Abscess - Abscess Wound Culture - Final No growth. 12/10/16 08:11 MRSA Culture - Final Naris MRSA NOT DETECTED Lab Studies 12/12/16 12/12/16 12/11/16 Range/Units 06:23 06:14 21:59 APTT 60 H D (21-34) SECONDS POC Glucose (mg/dL) 150 H 200 H (65-110) mg/dL 12/11/16 Range/Units 16:22 APTT (21-34) SECONDS POC Glucose (mg/dL) 223 H (65-110) mg/dL Laboratory Results - last 24 hr 12/11/16 12/11/16 12/12/16 16:22 21:59 06:14 APTT 60 H D POC Glucose (mg/dL) 223 H 200 H 12/12/16 06:23 APTT POC Glucose (mg/dL) 150 H Critical Care Progress Note - Nutrition Nutrition: Nutrition Category Date Time Status Renal Diet [DIET] Diets 12/10/16 Lunch Active Attending/Attestation - Attestation I have personally seen and examined this patient.: Yes I have fully participated in the care of the patient.: Yes I have reviewed all pertinent clinical information: Yes Notes (Text): Today: Tuesday, December 06, 2016 The Patient was seen and examined at the bedside, Medical records reviewed, all clinical/lab/hemodynamic/radiographic data were reviewed and management issues were discussed and formulated, Events reviewed Pain issues, skin care, head of the bed elevation, glycemic control were addressed. Agree with above treatment plans as transcribed in Dr. Dylan alatorre
[2016-12-06] MEDS: Epoetin Alfa 10,000 unit/ml Dialysis IV SCH (10:53)
[2016-12-06] MEDS: POLYETHYLENE GLYCOL 3350 17 GM/Dose PACKET PO SCH (11:02)
[2016-12-06] MEDS: Lactobacillus Acidophilus 500 MU Cap PO SCH ×2 (11:06→17:14)
--- NOTE | 2016-12-06 12:18 | CP.PCM.PN ---
Subjective - Date & Time of Evaluation Date of Evaluation: 12/06/16 Time of Evaluation: 12:15 - Subjective Subjective: On dialysis now- increase UF rate- to remove 3500ml Was agitated before- calmer now and able to verbalize Less LINK drainage; afebrile course Remains on IV vanco for VSE in abdominal drainage On biPAP for dyspnea On IV heparin for PE Objective - Vital Signs/Intake and Output Vital Signs (last 24 hours): Temp Pulse Resp BP Pulse Ox 97.6 F 104 H 19 152/80 H 100 12/06/16 10:35 12/06/16 11:19 12/06/16 10:35 12/06/16 11:35 12/06/16 10:35 Intake and Output: 12/06/16 12/06/16 06:59 18:59 Intake Total 889.4 192.4 Output Total 0 Balance 889.4 192.4 - Medications Medications: Current Medications Acetaminophen (Tylenol 325mg Tab) 650 mg PO Q6 PRN PRN Reason: temp > 99.5 Last Admin: 11/23/16 18:44 Dose: 650 mg Albuterol Sulfate (Albuterol 0.083% Inhal Angelica (2.5 Mg/3 Ml) Ud) 2.5 mg INH RQ6 [facility] Last Admin: 12/06/16 07:40 Dose: 2.5 mg Aspirin (Ecotrin) 81 mg PO DAILY [facility] [place] Last Admin: 12/06/16 11:02 Dose: 81 mg Calcium Acetate (Phoslo) 667 mg PO TIDCC [facility] [place] Last Admin: 12/06/16 08:23 Dose: 667 mg Epoetin Mik (Procrit) 10,000 unit IV [facility] Last Admin: 12/06/16 10:53 Dose: 10,000 unit Famotidine (Pepcid) 20 mg PO DAILY [facility] [place] Last Admin: 12/06/16 11:08 Dose: 20 mg Folic Acid (Folic Acid) 1 mg PO DAILY [facility] Last Admin: 12/06/16 11:02 Dose: 1 mg Heparin Sodium (Porcine) (Heparin) 4,100 units IVP MWF [facility] [place] Last Admin: 12/06/16 10:54 Dose: 4,100 units Vancomycin HCl 1,000 mg/ (Sodium Chloride) 250 mls @ 166.6 mls/hr IVPB [facility] Last Admin: 12/04/16 13:00 Dose: Not Given Heparin Sodium/Sodium Chloride (Heparin 69080 Units/250ml 1/2 Normal Saline) 25 ,000 units in 250 mls @ 7.32 mls/hr IV .Q24H PRN; Protocol; 12 UNITS/KG/HR PRN Reason: PROTOCOL Last Admin: 12/05/16 21:00 Dose: 9 units/kg/hr, 5.49 mls/hr Fosphenytoin Sodium 100 mg/ (Sodium Chloride) 52 mls @ 100 mls/hr IV Q8H [facility] [place] Last Admin: 12/06/16 01:00 Dose: 100 mls/hr Insulin Human Regular (Novolin R) 0 unit SC ACHS MARYLOU PRN Reason: Protocol Last Admin: 12/03/16 16:30 Dose: Not Given Lactobacillus Acidophilus (Bacid Acidophilus) 1 cap PO BID [facility] [place] Last Admin: 12/06/16 11:06 Dose: 1 cap Losartan Potassium (Cozaar) 100 mg PO DAILY [facility] [place] Last Admin: 12/06/16 11:07 Dose: 100 mg Metoprolol Tartrate (Lopressor) 25 mg PO BID [facility] [place] Last Admin: 12/06/16 11:03 Dose: 25 mg Nitroglycerin (Nitrostat Sl Tab) 0.4 mg SL Q15M PRN PRN Reason: chest pain Polyethylene Glycol (Miralax) 17 gm PO Q12H [facility] [place] Last Admin: 12/06/16 11:02 Dose: 17 gm Senna/Docusate Sodium (Senokot S 50 Mg-8.6 Mg) 2 tab PO Q12H [facility] [place] Last Admin: 12/06/16 08:26 Dose: 2 tab - Labs Labs: 12/06/16 06:04 12/06/16 06:04 PT 11.1 SECONDS (9.7-12.2) 12/04/16 04:56 INR 1.0 12/04/16 04:56 APTT 69 SECONDS (21-34) H 12/06/16 06:04 - Constitutional Appears: In Acute Distress, Agitated, Chronically Ill - Head Exam Head Exam: ATRAUMATIC, NORMAL INSPECTION - Eye Exam Eye Exam: EOMI, Normal appearance - Neck Exam Neck Exam: Normal Inspection. absent: Tenderness - Respiratory Exam Respiratory Exam: Clear to Ausculation Bilateral, NORMAL BREATHING PATTERN - Cardiovascular Exam Cardiovascular Exam: Tachycardia, +S1 - GI/Abdominal Exam GI & Abdominal Exam: Distended, Soft - Neurological Exam Neurological Exam: Awake, CN II-XII Intact - Skin Skin Exam: Dry, Warm Assessment and Plan (1) Type 2 diabetes mellitus with diabetic nephropathy Status: Acute (2) ESRD (end stage renal disease) Status: Chronic (3) Intra-abdominal abscess Status: Resolved (4) Pulmonary emboli Status: Acute (5) Metabolic encephalopathy Status: Acute - Assessment and Plan (Free Text) Plan: continue IV heparin- switch to oral agents soon dialysis MWF with increase UF rate IV ABs anti-seizure meds follow mental ststus closely
--- NOTE | 2016-12-06 14:06 | CP.PCM.CON ---
History of Present Illness - History of Present Illness History of Present Illness: Palliative consult Requested by Ivone EDWARDS Reason: Goals of care, poor quality of life Patient is a 71 yo lady admitted on 11/11/2016 from home with complaints of fever , nausea and vomiting. Prior this patient was treated for peritonins and [facility] after what was sent to [facility]. The CT abdomen on admission was significant for intestinal abscess which was surgically drained on and on 11/25/2016 patient underwent expl. lap as well.The drained fluid was positive for Enterococcus and patient was started on Vanco and Flagyl IV. On 12/04/2016 patient had an episode of severe agitation, hypertension and tachycardia, requiring transfer to ICU for further care. Patient placed on Nitroglycerin drip and cardiac consult called. PMH: ESRD with HD, peritonitis Soc. Hx: , lives at home Review of Systems - Review of Systems Systems not reviewed;Unavailable: Acuity of Condition Past Patient History - Infectious Disease Hx of Infectious Diseases: None - Past Medical History & Family History Past Medical History?: Yes - Past Social History Smoking Status: Never Smoked - CARDIAC Hx Cardiac Disorders: Yes Hx Hypertension: Yes - PULMONARY Hx Respiratory Disorders: No - NEUROLOGICAL Hx Neurological Disorder: No - HEENT Hx HEENT Problems: No - RENAL Hx Renal Failure: Yes (ESRD) - ENDOCRINE/METABOLIC Hx Endocrine Disorders: No - HEMATOLOGICAL/ONCOLOGICAL Hx Blood Disorders: No - INTEGUMENTARY Hx Dermatological Problems: No - MUSCULOSKELETAL/RHEUMATOLOGICAL Hx Musculoskeletal Disorders: No Hx Falls: No - GASTROINTESTINAL Hx Gastrointestinal Disorders: No - GENITOURINARY/GYNECOLOGICAL Hx Genitourinary Disorders: No - PSYCHIATRIC Hx Substance Use: No - SURGICAL HISTORY Hx Surgeries: Yes Hx Vascular Surgery: Yes Hx Vascular Access Device: Yes - ANESTHESIA Hx Anesthesia: Yes Hx Anesthesia Reactions: No Meds Home Medications: Home Medication List Medication Instructions Recorded Confirmed Type Acetaminophen [Tylenol 325mg tab] 650 mg PO Q6 PRN tab 11/20/16 Rx Benztropine [Cogentin] 1 mg PO HS tab 11/20/16 Rx Epoetin Mik [Procrit] 10,000 unit IV MWF ml 11/20/16 Rx Folic Acid 1 mg PO DAILY tab 11/20/16 Rx Lactobacillus Acidophilus [Bacid 1 cap PO BID cap 11/20/16 Rx Acidophilus] Losartan [Cozaar] 50 mg PO DAILY tab 11/20/16 Rx Meropenem [Merrem IV] 500 mg IVPB Q12H vial 11/20/16 Rx ALPRAZolam [Xanax] 0.25 mg PO Q8H PRN #60 tab 12/02/16 Rx Albuterol 0.083% [Albuterol 0.083% 2.5 mg INH RQ6 12/02/16 Rx Inhal Angelica (2.5 mg/3 ml) UD] Calcium Acetate [Phoslo] 667 mg PO TIDCC tab 12/02/16 Rx Docusate Sodium/Sennosides A 2 tab PO Q12H tab 12/02/16 Rx [Senokot S 50 MG-8.6 MG] Heparin 5,000 units SC Q12 vial 12/02/16 Rx Insulin Human Regular [Novolin R] 0 unit SC BID unit 12/02/16 Rx Losartan [Cozaar] 100 mg PO DAILY tab 12/02/16 Rx Polyethylene Glycol 3350 [Miralax] 17 gm PO Q12H packet 12/02/16 Rx Vancomycin [Vancomycin Inj] 1,000 mg IVPB MWF vial 12/02/16 Rx Allergies/Adverse Reactions: Allergies Allergy/AdvReac Type Severity Reaction Status Date / Time No Known Allergies Allergy Verified 11/11/16 15:52 - Medications Medications: Current Medications Acetaminophen (Tylenol 325mg Tab) 650 mg PO Q6 PRN PRN Reason: temp > 99.5 Last Admin: 11/23/16 18:44 Dose: 650 mg Albuterol Sulfate (Albuterol 0.083% Inhal Angelica (2.5 Mg/3 Ml) Ud) 2.5 mg INH RQ6 [facility] Last Admin: 12/06/16 13:22 Dose: 2.5 mg Aspirin (Ecotrin) 81 mg PO DAILY [facility] Last Admin: 12/06/16 11:02 Dose: 81 mg Calcium Acetate (Phoslo) 667 mg PO TIDCC [facility] Last Admin: 12/06/16 12:42 Dose: 667 mg Epoetin Mik (Procrit) 10,000 unit IV MWF [facility] Last Admin: 12/06/16 10:53 Dose: 10,000 unit Famotidine (Pepcid) 20 mg PO DAILY [facility] Last Admin: 12/06/16 11:08 Dose: 20 mg Folic Acid (Folic Acid) 1 mg PO DAILY [facility] Last Admin: 12/06/16 11:02 Dose: 1 mg Heparin Sodium (Porcine) (Heparin) 4,100 units IVP [facility] Last Admin: 12/06/16 10:54 Dose: 4,100 units Vancomycin HCl 1,000 mg/ (Sodium Chloride) 250 mls @ 166.6 mls/hr IVPB [facility] Last Admin: 12/06/16 09:00 Dose: Not Given Heparin Sodium/Sodium Chloride (Heparin 26871 Units/250ml 1/2 Normal Saline) 25 ,000 units in 250 mls @ 7.32 mls/hr IV .Q24H PRN; Protocol; 12 UNITS/KG/HR PRN Reason: PROTOCOL Last Admin: 12/05/16 21:00 Dose: 9 units/kg/hr, 5.49 mls/hr Fosphenytoin Sodium 100 mg/ (Sodium Chloride) 52 mls @ 100 mls/hr IV Q8H [facility] Last Admin: 12/06/16 10:00 Dose: Not Given Insulin Human Regular (Novolin R) 0 unit SC [facility] PRN Reason: Protocol Last Admin: 12/03/16 16:30 Dose: Not Given Lactobacillus Acidophilus (Bacid Acidophilus) 1 cap PO BID [facility] Last Admin: 12/06/16 11:06 Dose: 1 cap Losartan Potassium (Cozaar) 100 mg PO DAILY [facility] Last Admin: 12/06/16 11:07 Dose: 100 mg Metoprolol Tartrate (Lopressor) 25 mg PO BID [facility] Last Admin: 12/06/16 11:03 Dose: 25 mg Nitroglycerin (Nitrostat Sl Tab) 0.4 mg SL Q15M PRN PRN Reason: chest pain Polyethylene Glycol (Miralax) 17 gm PO Q12H [facility] Last Admin: 12/06/16 11:02 Dose: 17 gm Senna/Docusate Sodium (Senokot S 50 Mg-8.6 Mg) 2 tab PO Q12H [facility] Last Admin: 12/06/16 08:26 Dose: 2 tab Physical Exam - Constitutional Appears: Chronically Ill - Head Exam Head Exam: ATRAUMATIC, NORMAL INSPECTION, NORMOCEPHALIC - Eye Exam Eye Exam: EOMI, Normal appearance, PERRL Pupil Exam: NORMAL ACCOMODATION, PERRL - ENT Exam ENT Exam: Mucous Membranes Dry Additional comments: On CPAP, NGT in - Neck Exam Neck exam: Positive for: Normal Inspection - Respiratory Exam Respiratory Exam: Decreased Breath Sounds, NORMAL BREATHING PATTERN Additional comments: On CPAP - Cardiovascular Exam Cardiovascular Exam: Tachycardia - GI/Abdominal Exam GI & Abdominal Exam: Normal Bowel Sounds - Rectal Exam Rectal Exam: Deferred - Extremities Exam Extremities exam: Positive for: normal inspection - Back Exam Back exam: NORMAL INSPECTION - Neurological Exam Neurological exam: Alert - Psychiatric Exam Psychiatric exam: Agitated - Skin Skin Exam: Normal Color Results - Vital Signs Recent Vital Signs: Last Vital Signs Temp 97.8 F 12/06/16 12:28 Pulse 106 H 12/06/16 13:25 Resp 18 12/06/16 12:28 BP 119/74 12/06/16 13:35 Pulse Ox 100 12/06/16 12:38 - Labs Result Diagrams: 12/06/16 06:04 12/06/16 06:04 Labs: Laboratory Results - last 24 hr 12/05/16 12/05/16 12/05/16 06:00 06:00 06:00 WBC 7.1 RBC 3.22 L Hgb 9.1 L Hct 28.3 L MCV 88.0 MCH 28.2 MCHC 32.1 L RDW 15.0 H Plt Count 182 MPV 8.9 Neut % (Auto) 62.3 Lymph % (Auto) 12.4 L [place] % (Auto) 20.3 H Eos % (Auto) 4.3 H Baso % (Auto) 0.7 Neut # 4.4 Lymph # 0.9 L [place] # 1.5 H Eos # 0.3 Baso # 0.1 Neutrophils % (Manual) 68 Lymphocytes % (Manual) 8 L Monocytes % (Manual) 18 H Eosinophils % (Manual) 6 H Platelet Estimate Normal Hypochromasia (manual) Slight Poikilocytosis (manual Slight Anisocytosis (manual) Slight Target Cells Slight Ovalocytes Slight APTT 70 H Sodium 134 Potassium 4.6 Chloride 96 L Carbon Dioxide 25 Anion Gap 18 BUN 21 H Creatinine 5.1 H Est GFR ( Amer) 10 Est GFR (Non-Af Amer) 8 POC Glucose (mg/dL) Random Glucose 129 H Calcium 9.4 Phosphorus 6.0 H Magnesium 2.1 Total Bilirubin 0.7 AST 29 ALT 23 Alkaline Phosphatase 130 H Total Protein 7.2 Albumin 2.9 L Globulin 4.3 H Albumin/Globulin Ratio 0.7 L Random Vancomycin Phenytoin 12/05/16 12/05/16 12/05/16 11:42 17:32 23:34 WBC RBC Hgb Hct MCV MCH MCHC RDW Plt Count MPV Neut % (Auto) Lymph % (Auto) [place] % (Auto) Eos % (Auto) Baso % (Auto) Neut # Lymph # [place] # Eos # Baso # Neutrophils % (Manual) Lymphocytes % (Manual) Monocytes % (Manual) Eosinophils % (Manual) Platelet Estimate Hypochromasia (manual) Poikilocytosis (manual Anisocytosis (manual) Target Cells Ovalocytes APTT Sodium Potassium Chloride Carbon Dioxide Anion Gap BUN Creatinine Est GFR ( Amer) Est GFR (Non-Af Amer) POC Glucose (mg/dL) 172 H 207 H 155 H Random Glucose Calcium Phosphorus Magnesium Total Bilirubin AST ALT Alkaline Phosphatase Total Protein Albumin Globulin Albumin/Globulin Ratio Random Vancomycin Phenytoin 12/06/16 12/06/16 12/06/16 06:04 06:04 06:04 WBC 8.0 RBC 3.61 L Hgb 10.3 L Hct 31.7 L MCV 87.9 MCH 28.5 MCHC 32.5 L RDW 15.2 H Plt Count 212 MPV 8.6 Neut % (Auto) 66.4 Lymph % (Auto) 11.7 L [place] % (Auto) 18.0 H Eos % (Auto) 3.3 Baso % (Auto) 0.6 Neut # 5.3 Lymph # 0.9 L [place] # 1.4 H Eos # 0.3 Baso # 0.0 Neutrophils % (Manual) Lymphocytes % (Manual) Monocytes % (Manual) Eosinophils % (Manual) Platelet Estimate Hypochromasia (manual) Poikilocytosis (manual Anisocytosis (manual) Target Cells Ovalocytes APTT 69 H Sodium 133 Potassium 4.8 Chloride 96 L Carbon Dioxide 26 Anion Gap 16 BUN 35 H Creatinine 6.3 H Est GFR ( Amer) 8 Est GFR (Non-Af Amer) 7 POC Glucose (mg/dL) Random Glucose 168 H Calcium 9.5 Phosphorus 4.6 H Magnesium 2.3 Total Bilirubin 0.8 AST 24 ALT 16 Alkaline Phosphatase 145 H Total Protein 7.6 Albumin 3.3 L Globulin 4.3 H Albumin/Globulin Ratio 0.8 L Random Vancomycin Phenytoin 12/06/16 06:58 WBC RBC Hgb Hct MCV MCH MCHC RDW Plt Count MPV Neut % (Auto) Lymph % (Auto) [place] % (Auto) Eos % (Auto) Baso % (Auto) Neut # Lymph # [place] # Eos # Baso # Neutrophils % (Manual) Lymphocytes % (Manual) Monocytes % (Manual) Eosinophils % (Manual) Platelet Estimate Hypochromasia (manual) Poikilocytosis (manual Anisocytosis (manual) Target Cells Ovalocytes APTT Sodium Potassium Chloride Carbon Dioxide Anion Gap BUN Creatinine Est GFR ( Amer) Est GFR (Non-Af Amer) POC Glucose (mg/dL) Random Glucose Calcium Phosphorus Magnesium Total Bilirubin AST ALT Alkaline Phosphatase Total Protein Albumin Globulin Albumin/Globulin Ratio Random Vancomycin 28.02 Phenytoin 10.9 Assessment & Plan - Assessment and Plan (Free Text) Assessment: Palliative consult Code status Full Code, no advance directive on chart, PPS 10%, ROS not obtained from patient due to CPAP. I reviewed medical records, all diagnostic studies, examined patient in the bed. ROS obtained from nursing and charts. Patient is alert, with CPAP on, NGT and on HD at time of exam. Patient makes eye contact and attempts to talk. Patient appears restless and points on hand mittens to be removed. Patient is afebrile, tachycardic, HR 106, BP 119/74. Patient is not able to verbalize her needs due to CPAP on. Abdominal dressing in place, abdomen flat, decreased bowel sounds. I attempted calling patient's and left the voice maul. As per nursing, patient's son is visiting, but the phone number was not available. Impression * This is a chronically ill patient whose condition was further impacted by the peritonitis infection and the abdominal abscess' S/p Expl lap * Patient's quality of life is further negatively influenced by her inability to take PO fluids, NGT for nutrition and CPAP mask * These make patient more agitated as she is not able to verbalize her needs * Mobility is limited due to multiple attachments, surgical pain and generalized weakness * Patient's wishes for the end of life care are not known * Patient's was not reachable today for goals of care discussion Suggestion * The primary goal for this patient should be comfort and safety * Hopefully with gradual improvement in her condition agitation will subside * Palliative care will fallow up with patient and family members for goals of care discussion Thank you very much for involving me in care of this patient.
--- NOTE | 2016-12-06 15:06 | CP.PCM.PN ---
Subjective - Date & Time of Evaluation Date of Evaluation: 12/06/16 Time of Evaluation: 08:00 - Subjective Subjective: seen in ICU alert/ being fed by brother no resp distress on vanco alone reculture for temp spike Objective - Vital Signs/Intake and Output Vital Signs (last 24 hours): Temp Pulse Resp BP Pulse Ox 96.4 F L 107 H 17 110/70 100 12/06/16 14:05 12/06/16 14:05 12/06/16 14:05 12/06/16 14:05 12/06/16 14:05 Intake and Output: 12/06/16 12/06/16 06:59 18:59 Intake Total 889.4 192.4 Output Total 0 Balance 889.4 192.4 - Medications Medications: Current Medications Acetaminophen (Tylenol 325mg Tab) 650 mg PO Q6 PRN PRN Reason: temp > 99.5 Last Admin: 11/23/16 18:44 Dose: 650 mg Albuterol Sulfate (Albuterol 0.083% Inhal Angelica (2.5 Mg/3 Ml) Ud) 2.5 mg INH RQ6 [facility] Last Admin: 12/06/16 13:22 Dose: 2.5 mg Aspirin (Ecotrin) 81 mg PO DAILY [facility] Last Admin: 12/06/16 11:02 Dose: 81 mg Calcium Acetate (Phoslo) 667 mg PO TIDCC [facility] Last Admin: 12/06/16 12:42 Dose: 667 mg Epoetin Mik (Procrit) 10,000 unit IV [facility] Last Admin: 12/06/16 10:53 Dose: 10,000 unit Famotidine (Pepcid) 20 mg PO DAILY [facility] Last Admin: 12/06/16 11:08 Dose: 20 mg Folic Acid (Folic Acid) 1 mg PO DAILY [facility] Last Admin: 12/06/16 11:02 Dose: 1 mg Heparin Sodium (Porcine) (Heparin) 4,100 units IVP [facility] Last Admin: 12/06/16 10:54 Dose: 4,100 units Vancomycin HCl 1,000 mg/ (Sodium Chloride) 250 mls @ 166.6 mls/hr IVPB [facility] Last Admin: 12/06/16 09:00 Dose: Not Given Heparin Sodium/Sodium Chloride (Heparin 88516 Units/250ml 1/2 Normal Saline) 25 ,000 units in 250 mls @ 7.32 mls/hr IV .Q24H PRN; Protocol; 12 UNITS/KG/HR PRN Reason: PROTOCOL Last Admin: 12/05/16 21:00 Dose: 9 units/kg/hr, 5.49 mls/hr Fosphenytoin Sodium 100 mg/ (Sodium Chloride) 52 mls @ 100 mls/hr IV Q8H [facility] Last Admin: 12/06/16 10:00 Dose: Not Given Insulin Human Regular (Novolin R) 0 unit SC ACHS [facility] PRN Reason: Protocol Last Admin: 12/03/16 16:30 Dose: Not Given Lactobacillus Acidophilus (Bacid Acidophilus) 1 cap PO BID [facility] Last Admin: 12/06/16 11:06 Dose: 1 cap Losartan Potassium (Cozaar) 100 mg PO DAILY [facility] Last Admin: 12/06/16 11:07 Dose: 100 mg Metoprolol Tartrate (Lopressor) 25 mg PO BID [facility] Last Admin: 12/06/16 11:03 Dose: 25 mg Nitroglycerin (Nitrostat Sl Tab) 0.4 mg SL Q15M PRN PRN Reason: chest pain Polyethylene Glycol (Miralax) 17 gm PO Q12H [facility] Last Admin: 12/06/16 11:02 Dose: 17 gm Senna/Docusate Sodium (Senokot S 50 Mg-8.6 Mg) 2 tab PO Q12H [facility] Last Admin: 12/06/16 08:26 Dose: 2 tab - Labs Labs: 12/06/16 06:04 12/06/16 06:04 PT 11.1 SECONDS (9.7-12.2) 12/04/16 04:56 INR 1.0 12/04/16 04:56 APTT 69 SECONDS (21-34) H 12/06/16 06:04 - Constitutional Appears: Non-toxic, Chronically Ill - Head Exam Head Exam: ATRAUMATIC, NORMAL INSPECTION, NORMOCEPHALIC - Eye Exam Eye Exam: PERRL. absent: Scleral icterus - ENT Exam ENT Exam: Mucous Membranes Dry - Neck Exam Neck Exam: absent: Lymphadenopathy - Respiratory Exam Respiratory Exam: Decreased Breath Sounds, Rhonchi - Cardiovascular Exam Cardiovascular Exam: REGULAR RHYTHM, +S1, +S2 - GI/Abdominal Exam GI & Abdominal Exam: Distended, Soft - Rectal Exam Rectal Exam: Deferred - Exam Exam: NORMAL INSPECTION Assessment and Plan (1) ESRD (end stage renal disease) Status: Chronic (2) Intra-abdominal abscess Status: Resolved - Assessment and Plan (Free Text) Plan: cont iv rx follow up cxr dr sanabria on board for renal
--- NOTE | 2016-12-06 16:56 | CP.PCM.PN ---
Subjective - Date & Time of Evaluation Date of Evaluation: 12/06/16 Time of Evaluation: 15:25 - Subjective Subjective: Patient seen and examined. Lying comfortably in no acute distress In the morning patient had an episode of shortness of breath and tachycardia that responded to BiPAP Objective - Vital Signs/Intake and Output Vital Signs (last 24 hours): Temp Pulse Resp BP Pulse Ox 96.4 F L 103 H 23 129/79 100 12/06/16 14:05 12/06/16 15:00 12/06/16 15:00 12/06/16 15:00 12/06/16 15:00 Intake and Output: 12/06/16 12/06/16 06:59 18:59 Intake Total 889.4 258.6 Output Total 0 Balance 889.4 258.6 - Medications Medications: Current Medications Acetaminophen (Tylenol 325mg Tab) 650 mg PO Q6 PRN PRN Reason: temp > 99.5 Last Admin: 11/23/16 18:44 Dose: 650 mg Albuterol Sulfate (Albuterol 0.083% Inhal Angelica (2.5 Mg/3 Ml) Ud) 2.5 mg INH RQ6 [facility] Last Admin: 12/06/16 13:22 Dose: 2.5 mg Aspirin (Ecotrin) 81 mg PO DAILY [facility] Last Admin: 12/06/16 11:02 Dose: 81 mg Calcium Acetate (Phoslo) 667 mg PO TIDCC [facility] Last Admin: 12/06/16 12:42 Dose: 667 mg Epoetin Mik (Procrit) 10,000 unit IV [facility] Last Admin: 12/06/16 10:53 Dose: 10,000 unit Famotidine (Pepcid) 20 mg PO DAILY [facility] Last Admin: 12/06/16 11:08 Dose: 20 mg Folic Acid (Folic Acid) 1 mg PO DAILY [facility] Last Admin: 12/06/16 11:02 Dose: 1 mg Heparin Sodium (Porcine) (Heparin) 4,100 units IVP [facility] Last Admin: 12/06/16 10:54 Dose: 4,100 units Vancomycin HCl 1,000 mg/ (Sodium Chloride) 250 mls @ 166.6 mls/hr IVPB [facility] Last Admin: 12/06/16 09:00 Dose: Not Given Heparin Sodium/Sodium Chloride (Heparin 33324 Units/250ml 1/2 Normal Saline) 25 ,000 units in 250 mls @ 7.32 mls/hr IV .Q24H PRN; Protocol; 12 UNITS/KG/HR PRN Reason: PROTOCOL Last Admin: 12/05/16 21:00 Dose: 9 units/kg/hr, 5.49 mls/hr Fosphenytoin Sodium 100 mg/ (Sodium Chloride) 52 mls @ 100 mls/hr IV Q8H [facility] Last Admin: 12/06/16 10:00 Dose: Not Given Insulin Human Regular (Novolin R) 0 unit SC ACHS [facility] PRN Reason: Protocol Last Admin: 12/03/16 16:30 Dose: Not Given Lactobacillus Acidophilus (Bacid Acidophilus) 1 cap PO BID [facility] Last Admin: 12/06/16 11:06 Dose: 1 cap Losartan Potassium (Cozaar) 100 mg PO DAILY [facility] Last Admin: 12/06/16 11:07 Dose: 100 mg Metoprolol Tartrate (Lopressor) 25 mg PO BID [facility] Last Admin: 12/06/16 11:03 Dose: 25 mg Nitroglycerin (Nitrostat Sl Tab) 0.4 mg SL Q15M PRN PRN Reason: chest pain Polyethylene Glycol (Miralax) 17 gm PO Q12H [facility] Last Admin: 12/06/16 11:02 Dose: 17 gm Senna/Docusate Sodium (Senokot S 50 Mg-8.6 Mg) 2 tab PO Q12H [facility] Last Admin: 12/06/16 08:26 Dose: 2 tab - Labs Labs: 12/06/16 06:04 12/06/16 06:04 PT 11.1 SECONDS (9.7-12.2) 12/04/16 04:56 INR 1.0 12/04/16 04:56 APTT 69 SECONDS (21-34) H 12/06/16 06:04 - Constitutional Appears: No Acute Distress - Head Exam Head Exam: ATRAUMATIC, NORMOCEPHALIC - ENT Exam ENT Exam: Mucous Membranes Moist - Neck Exam Neck Exam: Normal Inspection - Respiratory Exam Respiratory Exam: Decreased Breath Sounds - Cardiovascular Exam Cardiovascular Exam: REGULAR RHYTHM - GI/Abdominal Exam GI & Abdominal Exam: Soft, Normal Bowel Sounds - Extremities Exam Extremities Exam: Pedal Edema Assessment and Plan (1) Pulmonary emboli Assessment & Plan: Continue anticoagulation BiPAP as needed for shortness of breath Status: Acute (2) Intra-abdominal abscess Assessment & Plan: Continue antibiotics per infectious disease Status: Resolved
--- NOTE | 2016-12-06 21:37 | CP.PCM.PN ---
Subjective - Date & Time of Evaluation Date of Evaluation: 12/06/16 Time of Evaluation: 21:34 - Subjective Subjective: After a relatively uneventful night, pt developed an episode of tachycardia in the 130s to 140s. Rapid response called and pt put on bipap as she was also tachypneic. Pt slowly calmed down and more docile. HD called in emergently for her scheduled dialysis today. Similar episode had happened approx 2 weeks ago and she recounts that she awakens and is confused and starts panicking. When more stable, will obtain psych consult for input: i.e. etiology of sudden tachypnea with spontaneous resolution: ? anxiety vs organic cause of tachypnea vs mucus plug (?). Objective - Vital Signs/Intake and Output Vital Signs (last 24 hours): Temp Pulse Resp BP Pulse Ox 98.8 F 83 21 131/77 100 12/06/16 16:00 12/06/16 19:00 12/06/16 19:00 12/06/16 19:00 12/06/16 19:00 Intake and Output: 12/06/16 12/07/16 18:59 06:59 Intake Total 500.2 Output Total 70 Balance 430.2 - Medications Medications: Current Medications Acetaminophen (Tylenol 325mg Tab) 650 mg PO Q6 PRN PRN Reason: temp > 99.5 Last Admin: 11/23/16 18:44 Dose: 650 mg Albuterol/Ipratropium (Duoneb 3 Mg/0.5 Mg (3 Ml) Ud) 3 ml INH RQ6 [facility] Aspirin (Ecotrin) 81 mg PO DAILY [facility] Last Admin: 12/06/16 11:02 Dose: 81 mg Calcium Acetate (Phoslo) 667 mg PO TIDCC [facility] Last Admin: 12/06/16 17:14 Dose: 667 mg Docusate Sodium (Colace) 100 mg PO BID [facility] Epoetin Mik (Procrit) 10,000 unit IV MWF [facility] Last Admin: 12/06/16 10:53 Dose: 10,000 unit Famotidine (Pepcid) 20 mg PO DAILY [facility] Last Admin: 12/06/16 11:08 Dose: 20 mg Folic Acid (Folic Acid) 1 mg PO DAILY [facility] Last Admin: 12/06/16 11:02 Dose: 1 mg Heparin Sodium (Porcine) (Heparin) 4,100 units IVP MWF [facility] Last Admin: 12/06/16 10:54 Dose: 4,100 units Vancomycin HCl 1,000 mg/ (Sodium Chloride) 250 mls @ 166.6 mls/hr IVPB [facility] [place] Last Admin: 12/06/16 09:00 Dose: Not Given Heparin Sodium/Sodium Chloride (Heparin 60246 Units/250ml 1/2 Normal Saline) 25 ,000 units in 250 mls @ 7.32 mls/hr IV .Q24H PRN; Protocol; 12 UNITS/KG/HR PRN Reason: PROTOCOL Last Admin: 12/05/16 21:00 Dose: 9 units/kg/hr, 5.49 mls/hr Fosphenytoin Sodium 100 mg/ (Sodium Chloride) 52 mls @ 100 mls/hr IV Q8H [facility] Last Admin: 12/06/16 17:15 Dose: 100 mls/hr Insulin Human Regular (Novolin R) 0 unit SC ACHS [facility] PRN Reason: Protocol Last Admin: 12/03/16 16:30 Dose: Not Given Lactobacillus Acidophilus (Bacid Acidophilus) 1 cap PO BID [facility] Last Admin: 12/06/16 17:14 Dose: 1 cap Losartan Potassium (Cozaar) 100 mg PO DAILY [facility] Last Admin: 12/06/16 11:07 Dose: 100 mg Metoprolol Tartrate (Lopressor) 25 mg PO BID [facility] Last Admin: 12/06/16 17:18 Dose: 25 mg Nitroglycerin (Nitrostat Sl Tab) 0.4 mg SL Q15M PRN PRN Reason: chest pain - Labs Labs: 12/06/16 06:04 12/06/16 06:04 PT 11.1 SECONDS (9.7-12.2) 12/04/16 04:56 INR 1.0 12/04/16 04:56 APTT 69 SECONDS (21-34) H 12/06/16 06:04 - Constitutional Appears: No Acute Distress - Head Exam Head Exam: NORMAL INSPECTION, NORMOCEPHALIC - Eye Exam Eye Exam: Normal appearance (continues to improve per nursin g) Pupil Exam: NORMAL ACCOMODATION - ENT Exam ENT Exam: Mucous Membranes Moist, Normal Exam - Neck Exam Neck Exam: Normal Inspection - Respiratory Exam Respiratory Exam: Decreased Breath Sounds, Clear to Ausculation Bilateral - Cardiovascular Exam Cardiovascular Exam: REGULAR RHYTHM - GI/Abdominal Exam GI & Abdominal Exam: Hypoactive Bowel Sounds - Rectal Exam Rectal Exam: Deferred - Exam Speculum exam: Vaginal Bleeding - Extremities Exam Extremities Exam: Normal Inspection - Back Exam Back Exam: NORMAL INSPECTION - Neurological Exam Neurological Exam: Awake, CN II-XII Intact Neuro motor strength exam: Left Upper Extremity: 4, Right Upper Extremity: 4, Left Lower Extremity: 3, Right Lower Extremity: 3 - Psychiatric Exam Psychiatric exam: Anxious (at times; confused at times) Assessment and Plan (1) Hypokalemic familial periodic paralysis Status: Resolved (2) Intra-abdominal abscess Status: Suspected (3) Anemia of chronic disease Status: Chronic (4) ESRD (end stage renal disease) Status: Chronic (5) Generalized weakness Status: Acute (6) Hypertension Status: Acute (7) Hyponatremia Status: Resolved (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 Status: Acute
[2016-12-07] MEDS: Fosphenytoin 100 MG in Sodium Chloride 0.9% 50 ML IV SCH ×3 (01:00→17:32)
[2016-12-07] MEDS: Albuterol-Ipratrop 3 mg / 0.5 (3 ml) UD INH SCH ×4 (02:07→19:48)
[2016-12-07 06:52] LABS: BASO # 0.1 K/uL (0.0-0.2); BASO % 1.1 % (0.0-2.0); EOS # 0.4 K/uL (0.0-0.7); EOS % 6.8 % (0.0-4.0); HEMATOCRIT 29.6 % (34.0-47.0); LYMPH % 15.3 % (20.0-40.0); MEAN CELL VOLUME 89.1 fL (81.0-99.0); MEAN CORPUSCULAR HEMOGLOBIN 28.7 pg (27.0-31.0); MEAN CORPUSCULAR HGB CONC 32.2 g/dL (33.0-37.0); MONO # 1.2 K/uL (0.0-0.8); MONO % 19.6 % (0.0-10.0); RED CELL DISTRIBUTION WIDTH 15.6 % (11.5-14.5); WHITE BLOOD COUNT 6.3 K/uL (4.8-10.8)
[2016-12-07 07:04] LABS: POTASSIUM 4.2 mmol/L (3.6-5.2)
[2016-12-07 07:06] LABS: BILIRUBIN,TOTAL 0.7 mg/dL (0.2-1.3)
[2016-12-07 07:07] LABS: ALB/GLOB RATIO 0.7 (1.0-2.1); CALCIUM 9.3 mg/dl (8.6-10.4); TOTAL PROTEIN 7.1 g/dL (6.3-8.3)
--- NOTE | 2016-12-07 09:06 | CP.PCM.PN ---
Subjective - Date & Time of Evaluation Date of Evaluation: 12/07/16 Time of Evaluation: 09:00 - Subjective Subjective: up in chair comfortable eating breakfast no abdomenal pain no headache,dizziness no chest pain sob no nausea vomiting diarrhea anuric Objective - Vital Signs/Intake and Output Vital Signs (last 24 hours): Temp Pulse Resp BP Pulse Ox 98.1 F 79 18 134/76 100 12/07/16 04:00 12/07/16 07:00 12/07/16 07:00 12/07/16 07:00 12/07/16 07:00 Intake and Output: 12/07/16 12/07/16 06:59 18:59 Intake Total 469.4 5.4 Output Total 25 Balance 469.4 -19.6 - Medications Medications: Current Medications Acetaminophen (Tylenol 325mg Tab) 650 mg PO Q6 PRN PRN Reason: temp > 99.5 Last Admin: 11/23/16 18:44 Dose: 650 mg Albuterol/Ipratropium (Duoneb 3 Mg/0.5 Mg (3 Ml) Ud) 3 ml INH RQ6 [facility] Last Admin: 12/07/16 08:03 Dose: 3 ml Aspirin (Ecotrin) 81 mg PO DAILY [facility] Last Admin: 12/06/16 11:02 Dose: 81 mg Calcium Acetate (Phoslo) 667 mg PO TIDCC [facility] Last Admin: 12/07/16 07:41 Dose: 667 mg Docusate Sodium (Colace) 100 mg PO BID [facility] Last Admin: 12/06/16 21:51 Dose: 100 mg Epoetin Mik (Procrit) 10,000 unit IV [facility] [place] Last Admin: 12/06/16 10:53 Dose: 10,000 unit Famotidine (Pepcid) 20 mg PO DAILY [facility] Last Admin: 12/06/16 11:08 Dose: 20 mg Folic Acid (Folic Acid) 1 mg PO DAILY [facility] Last Admin: 12/06/16 11:02 Dose: 1 mg Heparin Sodium (Porcine) (Heparin) 4,100 units IVP [facility] [place] Last Admin: 12/06/16 10:54 Dose: 4,100 units Vancomycin HCl 1,000 mg/ (Sodium Chloride) 250 mls @ 166.6 mls/hr IVPB [facility] [place] Last Admin: 12/06/16 09:00 Dose: Not Given Heparin Sodium/Sodium Chloride (Heparin 95920 Units/250ml 1/2 Normal Saline) 25 ,000 units in 250 mls @ 7.32 mls/hr IV .Q24H PRN; Protocol; 12 UNITS/KG/HR PRN Reason: PROTOCOL Last Admin: 12/05/16 21:00 Dose: 9 units/kg/hr, 5.49 mls/hr Fosphenytoin Sodium 100 mg/ (Sodium Chloride) 52 mls @ 100 mls/hr IV Q8H [facility] Last Admin: 12/07/16 01:00 Dose: 100 mls/hr Insulin Human Regular (Novolin R) 0 unit SC ACHS [facility] PRN Reason: Protocol Last Admin: 12/03/16 16:30 Dose: Not Given Lactobacillus Acidophilus (Bacid Acidophilus) 1 cap PO BID [facility] Last Admin: 12/06/16 17:14 Dose: 1 cap Losartan Potassium (Cozaar) 100 mg PO DAILY [facility] Last Admin: 12/06/16 11:07 Dose: 100 mg Metoprolol Tartrate (Lopressor) 25 mg PO BID [facility] Last Admin: 12/06/16 17:18 Dose: 25 mg Nitroglycerin (Nitrostat Sl Tab) 0.4 mg SL Q15M PRN PRN Reason: chest pain - Labs Labs: 12/07/16 06:40 12/07/16 06:43 PT 11.1 SECONDS (9.7-12.2) 12/04/16 04:56 INR 1.0 12/04/16 04:56 APTT 58 SECONDS (21-34) H D 12/07/16 06:40 - Constitutional Appears: Well, Non-toxic, No Acute Distress - ENT Exam ENT Exam: Mucous Membranes Moist - Respiratory Exam Respiratory Exam: Clear to Ausculation Bilateral - Cardiovascular Exam Cardiovascular Exam: REGULAR RHYTHM. absent: JVD - GI/Abdominal Exam GI & Abdominal Exam: Soft. absent: Distended, Tenderness - Back Exam Back Exam: absent: CVA tenderness (L), CVA tenderness (R) Additional comments: no pre sacral or leg edma - Skin Skin Exam: absent: Dry Assessment and Plan (1) Hypertension Status: Acute (2) Type 2 diabetes mellitus with diabetic nephropathy Status: Acute (3) ESRD (end stage renal disease) Status: Chronic (4) Intra-abdominal abscess Status: Suspected - Assessment and Plan (Free Text) Plan: follow neuro recommendations next dialysis tentatively 12/09
[2016-12-07] MEDS: Lactobacillus Acidophilus 500 MU Cap PO SCH ×2 (09:24→17:33)
--- NOTE | 2016-12-07 12:25 | CP.PCM.PN ---
Subjective - Date & Time of Evaluation Date of Evaluation: 12/07/16 Time of Evaluation: 10:15 - Subjective Subjective: SURGERY PROGRESS NOTE FOR DR. CARROLL 71F seen and examined at bedside. Patient states pain is minimal, denies nausea , vomiting, tolerating diet, Denies shortness of breath and chest pain. Objective - Vital Signs/Intake and Output Vital Signs (last 24 hours): Temp Pulse Resp BP Pulse Ox 97.9 F 90 14 110/60 100 12/07/16 08:00 12/07/16 11:00 12/07/16 11:00 12/07/16 11:00 12/07/16 11:00 Intake and Output: 12/07/16 12/07/16 06:59 18:59 Intake Total 469.4 302.4 Output Total 25 Balance 469.4 277.4 - Medications Medications: Current Medications Acetaminophen (Tylenol 325mg Tab) 650 mg PO Q6 PRN PRN Reason: temp > 99.5 Last Admin: 11/23/16 18:44 Dose: 650 mg Albuterol/Ipratropium (Duoneb 3 Mg/0.5 Mg (3 Ml) Ud) 3 ml INH RQ6 [facility] Last Admin: 12/07/16 08:03 Dose: 3 ml Aspirin (Ecotrin) 81 mg PO DAILY [facility] Last Admin: 12/07/16 09:22 Dose: 81 mg Calcium Acetate (Phoslo) 667 mg PO TIDCC [facility] Last Admin: 12/07/16 07:41 Dose: 667 mg Docusate Sodium (Colace) 100 mg PO BID [facility] Last Admin: 12/07/16 09:22 Dose: 100 mg Epoetin Mik (Procrit) 10,000 unit IV [facility] [place] Last Admin: 12/06/16 10:53 Dose: 10,000 unit Famotidine (Pepcid) 20 mg PO DAILY [facility] Last Admin: 12/07/16 09:23 Dose: 20 mg Folic Acid (Folic Acid) 1 mg PO DAILY [facility] Last Admin: 12/07/16 09:23 Dose: 1 mg Vancomycin HCl 1,000 mg/ (Sodium Chloride) 250 mls @ 166.6 mls/hr IVPB F [facility] Last Admin: 12/06/16 09:00 Dose: Not Given Heparin Sodium/Sodium Chloride (Heparin 19239 Units/250ml 1/2 Normal Saline) 25 ,000 units in 250 mls @ 7.32 mls/hr IV .Q24H PRN; Protocol; 12 UNITS/KG/HR PRN Reason: PROTOCOL Last Admin: 12/05/16 21:00 Dose: 9 units/kg/hr, 5.49 mls/hr Fosphenytoin Sodium 100 mg/ (Sodium Chloride) 52 mls @ 100 mls/hr IV Q8H [facility] Last Admin: 12/07/16 09:23 Dose: 100 mls/hr Insulin Human Regular (Novolin R) 0 unit SC ACHS [facility] PRN Reason: Protocol Last Admin: 12/03/16 16:30 Dose: Not Given Lactobacillus Acidophilus (Bacid Acidophilus) 1 cap PO BID [facility] Last Admin: 12/07/16 09:24 Dose: 1 cap Losartan Potassium (Cozaar) 100 mg PO DAILY [facility] Last Admin: 12/07/16 09:24 Dose: 100 mg Metoprolol Tartrate (Lopressor) 25 mg PO BID [facility] Last Admin: 12/07/16 09:22 Dose: 25 mg Nitroglycerin (Nitrostat Sl Tab) 0.4 mg SL Q15M PRN PRN Reason: chest pain - Labs Labs: 12/07/16 06:40 12/07/16 06:43 PT 11.1 SECONDS (9.7-12.2) 12/04/16 04:56 INR 1.0 12/04/16 04:56 APTT 58 SECONDS (21-34) H D 12/07/16 06:40 - Constitutional Appears: Non-toxic, No Acute Distress - Respiratory Exam Respiratory Exam: Clear to Ausculation Bilateral, NORMAL BREATHING PATTERN - Cardiovascular Exam Cardiovascular Exam: REGULAR RHYTHM, +S1, +S2 - GI/Abdominal Exam GI & Abdominal Exam: Soft. absent: Distended, Firm, Guarding, Rigid, Tenderness , Rebound Additional comments: drain in place with yellow purulent material. incision CDI - Neurological Exam Neurological Exam: Alert, Awake Assessment and Plan - Assessment and Plan (Free Text) Assessment: 71 year old female s/p ex lap POD 12 for intra-abdominal abscess -cont silva drain and monitor output -cont antibiotics -daily dressing changes -medical management per ICU team -D/W Dr. Ryann Centeno, PGY1
--- NOTE | 2016-12-07 12:47 | CP.PCM.PN ---
Subjective - Date & Time of Evaluation Date of Evaluation: 12/07/16 Time of Evaluation: 08:00 - Subjective Subjective: Patient seen and examined. Comfortably in no acute distress Much more awake and responsive Denies shortness of breath, denies chest pain Objective - Vital Signs/Intake and Output Vital Signs (last 24 hours): Temp Pulse Resp BP Pulse Ox 97.9 F 90 14 110/60 100 12/07/16 08:00 12/07/16 11:00 12/07/16 11:00 12/07/16 11:00 12/07/16 11:00 Intake and Output: 12/07/16 12/07/16 06:59 18:59 Intake Total 469.4 302.4 Output Total 25 Balance 469.4 277.4 - Medications Medications: Current Medications Acetaminophen (Tylenol 325mg Tab) 650 mg PO Q6 PRN PRN Reason: temp > 99.5 Last Admin: 11/23/16 18:44 Dose: 650 mg Albuterol/Ipratropium (Duoneb 3 Mg/0.5 Mg (3 Ml) Ud) 3 ml INH RQ6 [facility] Last Admin: 12/07/16 08:03 Dose: 3 ml Aspirin (Ecotrin) 81 mg PO DAILY [facility] Last Admin: 12/07/16 09:22 Dose: 81 mg Calcium Acetate (Phoslo) 667 mg PO TIDCC [facility] Last Admin: 12/07/16 07:41 Dose: 667 mg Docusate Sodium (Colace) 100 mg PO BID [facility] Last Admin: 12/07/16 09:22 Dose: 100 mg Epoetin Mik (Procrit) 10,000 unit IV [facility] [place] Last Admin: 12/06/16 10:53 Dose: 10,000 unit Famotidine (Pepcid) 20 mg PO DAILY [facility] Last Admin: 12/07/16 09:23 Dose: 20 mg Folic Acid (Folic Acid) 1 mg PO DAILY [facility] Last Admin: 12/07/16 09:23 Dose: 1 mg Vancomycin HCl 1,000 mg/ (Sodium Chloride) 250 mls @ 166.6 mls/hr IVPB [facility] Last Admin: 12/06/16 09:00 Dose: Not Given Heparin Sodium/Sodium Chloride (Heparin 13785 Units/250ml 1/2 Normal Saline) 25 ,000 units in 250 mls @ 7.32 mls/hr IV .Q24H PRN; Protocol; 12 UNITS/KG/HR PRN Reason: PROTOCOL Last Admin: 12/05/16 21:00 Dose: 9 units/kg/hr, 5.49 mls/hr Fosphenytoin Sodium 100 mg/ (Sodium Chloride) 52 mls @ 100 mls/hr IV Q8H [facility] Last Admin: 12/07/16 09:23 Dose: 100 mls/hr Insulin Human Regular (Novolin R) 0 unit SC ACHS [facility] PRN Reason: Protocol Last Admin: 12/03/16 16:30 Dose: Not Given Lactobacillus Acidophilus (Bacid Acidophilus) 1 cap PO BID [facility] Last Admin: 12/07/16 09:24 Dose: 1 cap Losartan Potassium (Cozaar) 100 mg PO DAILY [facility] Last Admin: 12/07/16 09:24 Dose: 100 mg Metoprolol Tartrate (Lopressor) 25 mg PO BID [facility] Last Admin: 12/07/16 09:22 Dose: 25 mg Nitroglycerin (Nitrostat Sl Tab) 0.4 mg SL Q15M PRN PRN Reason: chest pain - Labs Labs: 12/07/16 06:40 12/07/16 06:43 PT 11.1 SECONDS (9.7-12.2) 12/04/16 04:56 INR 1.0 12/04/16 04:56 APTT 58 SECONDS (21-34) H D 12/07/16 06:40 - Constitutional Appears: No Acute Distress - Head Exam Head Exam: ATRAUMATIC, NORMOCEPHALIC - Eye Exam Eye Exam: Normal appearance - ENT Exam ENT Exam: Mucous Membranes Moist - Neck Exam Neck Exam: Normal Inspection - Respiratory Exam Respiratory Exam: Clear to Ausculation Bilateral - Cardiovascular Exam Cardiovascular Exam: REGULAR RHYTHM - GI/Abdominal Exam GI & Abdominal Exam: Soft, Normal Bowel Sounds Assessment and Plan (1) Pulmonary emboli Assessment & Plan: Continue anticoagulation, continue present treatment and transfer to telemetry Status: Acute (2) Intra-abdominal abscess Status: Suspected
--- NOTE | 2016-12-07 21:10 | CP.PCM.PN ---
Subjective - Date & Time of Evaluation Date of Evaluation: 12/07/16 Time of Evaluation: 19:40 - Subjective Subjective: Pt seen and examined at bedside. Fully awake today, as talkative as 8 days ago before she trended down with her paralysis and pulmonary embolus. Discussed case with Float Nurse/Pulmonary on case and agreed that heparin gtt to be dc'd and changed to Eliquis 5 mg po daily if ok with all services. Pt had been downgraded to telemetry and awaiting bed upstairs. Pt eager to start PT to regain her strength back, and explained to pt that though LINK drain still draining a significant amount of purulet material /, we were all hping that she wouldn't give up and would continue to be with us. Pt verbalized understanding. Pt conitnues to have no recocllection of events from last weekend. Wanted to know when she would go home, and reminded pt that PT/OT/family and my recommendation was that she undergo PT and strengthening before going home. Pt resigned to result sof this discussion. Had visit with pt ~ 1.25 hrs with no evidence of fatigue) Objective - Vital Signs/Intake and Output Vital Signs (last 24 hours): Temp Pulse Resp BP Pulse Ox 98.2 F 88 22 139/74 100 12/07/16 16:00 12/07/16 20:00 12/07/16 20:00 12/07/16 20:00 12/07/16 20:00 Intake and Output: 12/07/16 12/08/16 18:59 06:59 Intake Total 444.0 Output Total 25 Balance 419.0 - Medications Medications: Current Medications Acetaminophen (Tylenol 325mg Tab) 650 mg PO Q6 PRN PRN Reason: temp > 99.5 Last Admin: 11/23/16 18:44 Dose: 650 mg Albuterol/Ipratropium (Duoneb 3 Mg/0.5 Mg (3 Ml) Ud) 3 ml INH RQ6 [facility] Last Admin: 12/07/16 19:48 Dose: 3 ml Aspirin (Ecotrin) 81 mg PO DAILY [facility] Last Admin: 12/07/16 09:22 Dose: 81 mg Calcium Acetate (Phoslo) 667 mg PO TIDCC [facility] Last Admin: 12/07/16 17:33 Dose: 667 mg Docusate Sodium (Colace) 100 mg PO BID [facility] Last Admin: 12/07/16 17:33 Dose: 100 mg Epoetin Mik (Procrit) 10,000 unit IV [facility] [place] Last Admin: 12/06/16 10:53 Dose: 10,000 unit Famotidine (Pepcid) 20 mg PO DAILY [facility] Last Admin: 12/07/16 09:23 Dose: 20 mg Folic Acid (Folic Acid) 1 mg PO DAILY [facility] Last Admin: 12/07/16 09:23 Dose: 1 mg Vancomycin HCl 1,000 mg/ (Sodium Chloride) 250 mls @ 166.6 mls/hr IVPB F [facility] Last Admin: 12/06/16 09:00 Dose: Not Given Heparin Sodium/Sodium Chloride (Heparin 81927 Units/250ml 1/2 Normal Saline) 25 ,000 units in 250 mls @ 7.32 mls/hr IV .Q24H PRN; Protocol; 12 UNITS/KG/HR PRN Reason: PROTOCOL Last Admin: 12/05/16 21:00 Dose: 9 units/kg/hr, 5.49 mls/hr Fosphenytoin Sodium 100 mg/ (Sodium Chloride) 52 mls @ 100 mls/hr IV Q8H [facility] Last Admin: 12/07/16 17:32 Dose: 100 mls/hr Insulin Human Regular (Novolin R) 0 unit SC ACHS [facility] PRN Reason: Protocol Last Admin: 12/03/16 16:30 Dose: Not Given Lactobacillus Acidophilus (Bacid Acidophilus) 1 cap PO BID [facility] Last Admin: 12/07/16 17:33 Dose: 1 cap Losartan Potassium (Cozaar) 100 mg PO DAILY [facility] Last Admin: 12/07/16 09:24 Dose: 100 mg Metoprolol Tartrate (Lopressor) 25 mg PO BID [facility] Last Admin: 12/07/16 17:34 Dose: 25 mg Nitroglycerin (Nitrostat Sl Tab) 0.4 mg SL Q15M PRN PRN Reason: chest pain - Labs Labs: 12/07/16 06:40 12/07/16 06:43 PT 11.1 SECONDS (9.7-12.2) 12/04/16 04:56 INR 1.0 12/04/16 04:56 APTT 58 SECONDS (21-34) H D 12/07/16 06:40 - Constitutional Appears: No Acute Distress - Head Exam Head Exam: ATRAUMATIC, NORMAL INSPECTION, NORMOCEPHALIC - Eye Exam Eye Exam: Normal appearance Pupil Exam: NORMAL ACCOMODATION - ENT Exam ENT Exam: Mucous Membranes Moist. absent: Normal Exam - Neck Exam Neck Exam: Normal Inspection - Respiratory Exam Respiratory Exam: Clear to Ausculation Bilateral Additional comments: deccreased rhonchi from previous day with change in neb tx - Cardiovascular Exam Cardiovascular Exam: REGULAR RHYTHM - GI/Abdominal Exam GI & Abdominal Exam: Soft, Hypoactive Bowel Sounds Additional comments: decreased distension from previous; + LINK drain of purulent liquid approx 20 ml over 16 hours - Rectal Exam Rectal Exam: Deferred Assessment and Plan (1) Intra-abdominal abscess Assessment & Plan: still with significant purulent secretion not as thick as before Status: Suspected (2) Anemia of chronic disease Assessment & Plan: stable hgb at this time Status: Chronic (3) ESRD (end stage renal disease) Assessment & Plan: resigned to undergoing HD 3x/week the rest of her life Status: Chronic (4) Pulmonary emboli Assessment & Plan: o specific saddle embolus found Status: Acute (5) Generalized weakness Assessment & Plan: for MARIO placement Status: Acute (6) Hypertension Assessment & Plan: stable Status: Acute (7) Hyponatremia Assessment & Plan: resolved Status: Resolved (8) 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
[2016-12-08] MEDS: Albuterol-Ipratrop 3 mg / 0.5 (3 ml) UD INH SCH ×4 (01:10→20:44)
[2016-12-08] MEDS: Fosphenytoin 100 MG in Sodium Chloride 0.9% 50 ML IV SCH ×3 (01:29→17:56)
[2016-12-08] MEDS: Heparin25000 units/250ml 1/2NS 25,000 UNITS/250 ML BAG IV PRN (04:34)
[2016-12-08 06:28] LABS: BASO # 0.1 K/uL (0.0-0.2); BASO % 0.8 % (0.0-2.0); EOS # 0.5 K/uL (0.0-0.7); EOS % 7.4 % (0.0-4.0); HEMATOCRIT 28.1 % (34.0-47.0); LYMPH # 1.1 K/uL (1.0-4.3); LYMPH % 15.3 % (20.0-40.0); MEAN CELL VOLUME 89.4 fL (81.0-99.0); MEAN CORPUSCULAR HEMOGLOBIN 28.4 pg (27.0-31.0); MEAN CORPUSCULAR HGB CONC 31.8 g/dL (33.0-37.0); MEAN PLATELET VOLUME 9.1 fL (7.2-11.7); MONO # 1.3 K/uL (0.0-0.8); MONO % 18.5 % (0.0-10.0); WHITE BLOOD COUNT 6.9 K/uL (4.8-10.8)
[2016-12-08 06:43] LABS: POTASSIUM 4.5 mmol/L (3.6-5.2)
[2016-12-08 06:45] LABS: ALB/GLOB RATIO 0.6 (1.0-2.1); BILIRUBIN,TOTAL 0.6 mg/dL (0.2-1.3); TOTAL PROTEIN 6.8 g/dL (6.3-8.3)
[2016-12-08 06:46] LABS: CALCIUM 9.4 mg/dl (8.6-10.4)
[2016-12-08] MEDS: Lactobacillus Acidophilus 500 MU Cap PO SCH ×2 (09:23→18:01)
--- NOTE | 2016-12-08 14:07 | CP.PCM.PN ---
Subjective - Date & Time of Evaluation Date of Evaluation: 12/08/16 Time of Evaluation: 08:30 - Subjective Subjective: [place]: Dr. Garzon Pt seen and examined. No acute overnight events. Pt sitting up in bedside chair. States she feels a lot better and wants to go home soon. Denies abdominal pain, N/V. F/C. Objective - Vital Signs/Intake and Output Vital Signs (last 24 hours): Temp Pulse Resp BP Pulse Ox 98.9 F 89 20 153/98 H 100 12/08/16 12:00 12/08/16 13:00 12/08/16 13:00 12/08/16 12:18 12/08/16 13:00 Intake and Output: 12/08/16 12/08/16 06:59 18:59 Intake Total 290 225 Output Total 30 0 Balance 260 225 - Medications Medications: Current Medications Acetaminophen (Tylenol 325mg Tab) 650 mg PO Q6 PRN PRN Reason: temp > 99.5 Last Admin: 11/23/16 18:44 Dose: 650 mg Albuterol/Ipratropium (Duoneb 3 Mg/0.5 Mg (3 Ml) Ud) 3 ml INH RQ6 [facility] Last Admin: 12/08/16 13:45 Dose: 3 ml Aspirin (Ecotrin) 81 mg PO DAILY [facility] Last Admin: 12/08/16 09:23 Dose: 81 mg Calcium Acetate (Phoslo) 667 mg PO TIDCC [facility] Last Admin: 12/08/16 09:23 Dose: 667 mg Docusate Sodium (Colace) 100 mg PO BID [facility] Last Admin: 12/08/16 09:24 Dose: 100 mg Epoetin Mik (Procrit) 10,000 unit IV [facility] [place] Last Admin: 12/06/16 10:53 Dose: 10,000 unit Famotidine (Pepcid) 20 mg PO DAILY [facility] Last Admin: 12/08/16 09:23 Dose: 20 mg Folic Acid (Folic Acid) 1 mg PO DAILY [facility] Last Admin: 12/08/16 09:24 Dose: 1 mg Vancomycin HCl 1,000 mg/ (Sodium Chloride) 250 mls @ 166.6 mls/hr IVPB F [facility] Last Admin: 12/06/16 09:00 Dose: Not Given Heparin Sodium/Sodium Chloride (Heparin 29545 Units/250ml 1/2 Normal Saline) 25 ,000 units in 250 mls @ 7.32 mls/hr IV .Q24H PRN; Protocol; 12 UNITS/KG/HR PRN Reason: PROTOCOL Last Admin: 12/08/16 04:34 Dose: 9 units/kg/hr, 5.49 mls/hr Fosphenytoin Sodium 100 mg/ (Sodium Chloride) 52 mls @ 100 mls/hr IV Q8H [facility] Last Admin: 12/08/16 09:23 Dose: 100 mls/hr Insulin Human Regular (Novolin R) 0 unit SC ACHS [facility] PRN Reason: Protocol Last Admin: 12/03/16 16:30 Dose: Not Given Lactobacillus Acidophilus (Bacid Acidophilus) 1 cap PO BID [facility] Last Admin: 12/08/16 09:23 Dose: 1 cap Losartan Potassium (Cozaar) 100 mg PO DAILY [facility] Last Admin: 12/08/16 09:23 Dose: 100 mg Metoprolol Tartrate (Lopressor) 25 mg PO BID [facility] Last Admin: 12/08/16 09:23 Dose: 25 mg Nitroglycerin (Nitrostat Sl Tab) 0.4 mg SL Q15M PRN PRN Reason: chest pain - Labs Labs: 12/08/16 06:17 12/08/16 06:17 PT 11.1 SECONDS (9.7-12.2) 12/04/16 04:56 INR 1.0 12/04/16 04:56 APTT 64 SECONDS (21-34) H D 12/08/16 06:17 - Constitutional Appears: Well, No Acute Distress - Head Exam Head Exam: ATRAUMATIC, NORMOCEPHALIC - ENT Exam ENT Exam: Mucous Membranes Moist - Respiratory Exam Respiratory Exam: NORMAL BREATHING PATTERN - Cardiovascular Exam Cardiovascular Exam: RRR - GI/Abdominal Exam GI & Abdominal Exam: Soft. absent: Distended, Guarding, Tenderness Additional comments: Chencho drain in place with 20cc/12hr shift of purulent fluid, midline incision C/ D/I - Neurological Exam Neurological Exam: Alert, Awake, Oriented x3 - Skin Skin Exam: Dry, Intact, Warm Assessment and Plan - Assessment and Plan (Free Text) Assessment: 71F s/p Ex-Lap with drainage of intra-abdominal abscess; POD#13 Plan: - Cont IV ABX - Monitor drain output - IV Hep for PE - No further surgical intervention at this time; will re-asses whether drain should come out prior to DC - d/w Dr. Ryann Alves, PGY-2 Surgery
--- NOTE | 2016-12-08 14:55 | CP.PCM.PN ---
Subjective - Date & Time of Evaluation Date of Evaluation: 12/08/16 Time of Evaluation: 07:00 - Subjective Subjective: AWAKE ALERT STILL WITH SL DRAINAGE ABD WOUND CONT IV RX SURG RE-EVAL Objective - Vital Signs/Intake and Output Vital Signs (last 24 hours): Temp Pulse Resp BP Pulse Ox 98.9 F 89 20 153/98 H 100 12/08/16 12:00 12/08/16 13:00 12/08/16 13:00 12/08/16 12:18 12/08/16 13:00 Intake and Output: 12/08/16 12/08/16 06:59 18:59 Intake Total 290 225 Output Total 30 0 Balance 260 225 - Medications Medications: Current Medications Acetaminophen (Tylenol 325mg Tab) 650 mg PO Q6 PRN PRN Reason: temp > 99.5 Last Admin: 11/23/16 18:44 Dose: 650 mg Albuterol/Ipratropium (Duoneb 3 Mg/0.5 Mg (3 Ml) Ud) 3 ml INH RQ6 [facility] Last Admin: 12/08/16 13:45 Dose: 3 ml Aspirin (Ecotrin) 81 mg PO DAILY [facility] Last Admin: 12/08/16 09:23 Dose: 81 mg Calcium Acetate (Phoslo) 667 mg PO TIDCC [facility] Last Admin: 12/08/16 09:23 Dose: 667 mg Docusate Sodium (Colace) 100 mg PO BID [facility] Last Admin: 12/08/16 09:24 Dose: 100 mg Epoetin Mik (Procrit) 10,000 unit IV [facility] Last Admin: 12/06/16 10:53 Dose: 10,000 unit Famotidine (Pepcid) 20 mg PO DAILY [facility] Last Admin: 12/08/16 09:23 Dose: 20 mg Folic Acid (Folic Acid) 1 mg PO DAILY [facility] Last Admin: 12/08/16 09:24 Dose: 1 mg Vancomycin HCl 1,000 mg/ (Sodium Chloride) 250 mls @ 166.6 mls/hr IVPB [facility] Last Admin: 12/06/16 09:00 Dose: Not Given Heparin Sodium/Sodium Chloride (Heparin 33015 Units/250ml 1/2 Normal Saline) 25 ,000 units in 250 mls @ 7.32 mls/hr IV .Q24H PRN; Protocol; 12 UNITS/KG/HR PRN Reason: PROTOCOL Last Admin: 12/08/16 04:34 Dose: 9 units/kg/hr, 5.49 mls/hr Fosphenytoin Sodium 100 mg/ (Sodium Chloride) 52 mls @ 100 mls/hr IV Q8H [facility] Last Admin: 12/08/16 09:23 Dose: 100 mls/hr Insulin Human Regular (Novolin R) 0 unit SC ACHS [facility] PRN Reason: Protocol Last Admin: 12/03/16 16:30 Dose: Not Given Lactobacillus Acidophilus (Bacid Acidophilus) 1 cap PO BID [facility] Last Admin: 12/08/16 09:23 Dose: 1 cap Losartan Potassium (Cozaar) 100 mg PO DAILY [facility] Last Admin: 12/08/16 09:23 Dose: 100 mg Metoprolol Tartrate (Lopressor) 25 mg PO BID [facility] Last Admin: 12/08/16 09:23 Dose: 25 mg Nitroglycerin (Nitrostat Sl Tab) 0.4 mg SL Q15M PRN PRN Reason: chest pain - Labs Labs: 12/08/16 06:17 12/08/16 06:17 PT 11.1 SECONDS (9.7-12.2) 12/04/16 04:56 INR 1.0 12/04/16 04:56 APTT 64 SECONDS (21-34) H D 12/08/16 06:17 - Constitutional Appears: Non-toxic, Chronically Ill - Head Exam Head Exam: NORMOCEPHALIC - Eye Exam Eye Exam: PERRL. absent: Scleral icterus - ENT Exam ENT Exam: Mucous Membranes Dry, Normal External Ear Exam - Neck Exam Neck Exam: absent: Lymphadenopathy - Respiratory Exam Respiratory Exam: Decreased Breath Sounds - Cardiovascular Exam Cardiovascular Exam: REGULAR RHYTHM - GI/Abdominal Exam GI & Abdominal Exam: Distended, Soft - Rectal Exam Rectal Exam: Deferred - Extremities Exam Extremities Exam: absent: Pedal Edema - Back Exam Back Exam: absent: CVA tenderness (L), CVA tenderness (R) Assessment and Plan (1) ESRD (end stage renal disease) Status: Chronic (2) Intra-abdominal abscess Status: Suspected - Assessment and Plan (Free Text) Assessment: IV RX RENEWED
--- NOTE | 2016-12-08 23:53 | CP.PCM.PN ---
Subjective - Date & Time of Evaluation Date of Evaluation: 12/08/16 Time of Evaluation: 23:51 - Subjective Subjective: Pt with no significant events overnight. Feeling and breathing better with decrease in phlegm. Eager to resume PT, awaitng bed in telemetry. Continues to try and get OOB on her own power as lying down now makes her back heat up and makes it uncomfortable for her. Objective - Vital Signs/Intake and Output Vital Signs (last 24 hours): Temp Pulse Resp BP Pulse Ox 98.7 F 89 20 147/74 100 12/08/16 16:00 12/08/16 13:00 12/08/16 13:00 12/08/16 17:55 12/08/16 13:00 Intake and Output: 12/08/16 12/09/16 18:59 06:59 Intake Total 225 Output Total 0 Balance 225 - Medications Medications: Current Medications Acetaminophen (Tylenol 325mg Tab) 650 mg PO Q6 PRN PRN Reason: temp > 99.5 Last Admin: 11/23/16 18:44 Dose: 650 mg Albuterol/Ipratropium (Duoneb 3 Mg/0.5 Mg (3 Ml) Ud) 3 ml INH RQ6 [facility] Last Admin: 12/08/16 20:44 Dose: 3 ml Aspirin (Ecotrin) 81 mg PO DAILY [facility] Last Admin: 12/08/16 09:23 Dose: 81 mg Calcium Acetate (Phoslo) 667 mg PO TIDCC [facility] Last Admin: 12/08/16 17:56 Dose: 667 mg Docusate Sodium (Colace) 100 mg PO BID [facility] Last Admin: 12/08/16 17:56 Dose: 100 mg Epoetin Mik (Procrit) 10,000 unit IV MWF [facility] Last Admin: 12/06/16 10:53 Dose: 10,000 unit Famotidine (Pepcid) 20 mg PO DAILY [facility] Last Admin: 12/08/16 09:23 Dose: 20 mg Folic Acid (Folic Acid) 1 mg PO DAILY [facility] Last Admin: 12/08/16 09:24 Dose: 1 mg Heparin Sodium/Sodium Chloride (Heparin 73191 Units/250ml 1/2 Normal Saline) 25 ,000 units in 250 mls @ 7.32 mls/hr IV .Q24H PRN; Protocol; 12 UNITS/KG/HR PRN Reason: PROTOCOL Last Admin: 12/08/16 04:34 Dose: 9 units/kg/hr, 5.49 mls/hr Fosphenytoin Sodium 100 mg/ (Sodium Chloride) 52 mls @ 100 mls/hr IV Q8H [facility] Last Admin: 12/08/16 17:56 Dose: 100 mls/hr Insulin Human Regular (Novolin R) 0 unit SC ACHS [facility] PRN Reason: Protocol Last Admin: 12/03/16 16:30 Dose: Not Given Lactobacillus Acidophilus (Bacid Acidophilus) 1 cap PO BID [facility] Last Admin: 12/08/16 18:01 Dose: 1 cap Losartan Potassium (Cozaar) 100 mg PO DAILY [facility] Last Admin: 12/08/16 09:23 Dose: 100 mg Metoprolol Tartrate (Lopressor) 25 mg PO BID [facility] Last Admin: 12/08/16 17:55 Dose: 25 mg Nitroglycerin (Nitrostat Sl Tab) 0.4 mg SL Q15M PRN PRN Reason: chest pain - Labs Labs: 12/08/16 06:17 12/08/16 06:17 PT 11.1 SECONDS (9.7-12.2) 12/04/16 04:56 INR 1.0 12/04/16 04:56 APTT 64 SECONDS (21-34) H D 12/08/16 06:17 - Constitutional Appears: No Acute Distress - Head Exam Head Exam: ATRAUMATIC, NORMAL INSPECTION, NORMOCEPHALIC - Eye Exam Eye Exam: Normal appearance, PERRL Pupil Exam: NORMAL ACCOMODATION - ENT Exam ENT Exam: Mucous Membranes Moist, Normal Exam - Neck Exam Neck Exam: Full ROM, Normal Inspection - Respiratory Exam Respiratory Exam: Decreased Breath Sounds (at bases), Clear to Ausculation Bilateral - Cardiovascular Exam Cardiovascular Exam: REGULAR RHYTHM - GI/Abdominal Exam GI & Abdominal Exam: Normal Bowel Sounds - Rectal Exam Rectal Exam: Deferred - Extremities Exam Extremities Exam: Normal Capillary Refill, Normal Inspection - Back Exam Back Exam: NORMAL INSPECTION - Neurological Exam Neurological Exam: Alert, Awake, CN II-XII Intact, Oriented x3 Neuro motor strength exam: Left Upper Extremity: 4, Right Upper Extremity: 4, Left Lower Extremity: 4, Right Lower Extremity: 4 - Psychiatric Exam Psychiatric exam: Normal Affect, Normal Mood - Skin Skin Exam: Dry, Intact, Normal Color, Warm Assessment and Plan (1) Intra-abdominal abscess Status: Suspected (2) Anemia of chronic disease Status: Chronic (3) ESRD (end stage renal disease) Assessment & Plan: permacath for changing bec malfxning per nephro request. Status: Chronic (4) Pulmonary emboli Assessment & Plan: on heparin gtt. 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
[2016-12-09] MEDS: Albuterol-Ipratrop 3 mg / 0.5 (3 ml) UD INH SCH ×3 (01:14→13:36)
[2016-12-09] MEDS: Fosphenytoin 100 MG in Sodium Chloride 0.9% 50 ML IV SCH ×3 (01:25→18:14)
[2016-12-09 06:05] LABS: BASO % 0.7 % (0.0-2.0); EOS # 0.4 K/uL (0.0-0.7); EOS % 5.8 % (0.0-4.0); HEMATOCRIT 27.3 % (34.0-47.0); LYMPH % 14.7 % (20.0-40.0); MEAN CELL VOLUME 89.7 fL (81.0-99.0); MEAN CORPUSCULAR HEMOGLOBIN 29.4 pg (27.0-31.0); MEAN CORPUSCULAR HGB CONC 32.8 g/dL (33.0-37.0); MEAN PLATELET VOLUME 8.8 fL (7.2-11.7); MONO % 15.8 % (0.0-10.0); RED CELL DISTRIBUTION WIDTH 15.8 % (11.5-14.5); WHITE BLOOD COUNT 6.6 K/uL (4.8-10.8)
[2016-12-09 06:16] LABS: POTASSIUM 4.9 mmol/L (3.6-5.2)
[2016-12-09 06:18] LABS: ALB/GLOB RATIO 0.8 (1.0-2.1); BILIRUBIN,TOTAL 0.7 mg/dL (0.2-1.3); TOTAL PROTEIN 6.5 g/dL (6.3-8.3)
[2016-12-09 06:19] LABS: CALCIUM 8.9 mg/dl (8.6-10.4); MAGNESIUM 2.5 mg/dL (1.6-2.3); PHOSPHOROUS 4.9 mg/dL (2.5-4.5)
--- NOTE | 2016-12-09 09:55 | CP.PCM.PN ---
Subjective - Date & Time of Evaluation Date of Evaluation: 12/09/16 Time of Evaluation: 09:52 - Subjective Subjective: Alert; has been afebrile , eating better. Much more alert, fully oriented now Still with LINK drain-has 50-100ml purulent appearing fluid drained daily For dialysis now- to UF about 3000ml. IJ cath not working well- previously had TPA Labs acceptable No n, v, diarrhea, CPs Objective - Vital Signs/Intake and Output Vital Signs (last 24 hours): Temp Pulse Resp BP Pulse Ox 97.6 F 88 17 138/90 100 12/09/16 00:00 12/09/16 05:00 12/09/16 05:00 12/09/16 04:19 12/09/16 05:00 Intake and Output: 12/09/16 12/09/16 06:59 18:59 Intake Total 196 Output Total 40 Balance 156 - Medications Medications: Current Medications Acetaminophen (Tylenol 325mg Tab) 650 mg PO Q6 PRN PRN Reason: temp > 99.5 Last Admin: 11/23/16 18:44 Dose: 650 mg Albuterol/Ipratropium (Duoneb 3 Mg/0.5 Mg (3 Ml) Ud) 3 ml INH RQ6 [facility] Last Admin: 12/09/16 07:43 Dose: Not Given Aspirin (Ecotrin) 81 mg PO DAILY [facility] Last Admin: 12/08/16 09:23 Dose: 81 mg Calcium Acetate (Phoslo) 667 mg PO TIDCC [facility] Last Admin: 12/08/16 17:56 Dose: 667 mg Docusate Sodium (Colace) 100 mg PO BID [facility] Last Admin: 12/08/16 17:56 Dose: 100 mg Epoetin Mik (Procrit) 10,000 unit IV MWF [facility] Last Admin: 12/06/16 10:53 Dose: 10,000 unit Famotidine (Pepcid) 20 mg PO DAILY [facility] Last Admin: 12/08/16 09:23 Dose: 20 mg Folic Acid (Folic Acid) 1 mg PO DAILY [facility] Last Admin: 12/08/16 09:24 Dose: 1 mg Heparin Sodium/Sodium Chloride (Heparin 00956 Units/250ml 1/2 Normal Saline) 25 ,000 units in 250 mls @ 7.32 mls/hr IV .Q24H PRN; Protocol; 12 UNITS/KG/HR PRN Reason: PROTOCOL Last Admin: 12/08/16 04:34 Dose: 9 units/kg/hr, 5.49 mls/hr Fosphenytoin Sodium 100 mg/ (Sodium Chloride) 52 mls @ 100 mls/hr IV Q8H [facility] Last Admin: 12/09/16 01:25 Dose: 100 mls/hr Insulin Human Regular (Novolin R) 0 unit SC ACHS [facility] PRN Reason: Protocol Last Admin: 12/03/16 16:30 Dose: Not Given Lactobacillus Acidophilus (Bacid Acidophilus) 1 cap PO BID [facility] Last Admin: 12/08/16 18:01 Dose: 1 cap Losartan Potassium (Cozaar) 100 mg PO DAILY [facility] Last Admin: 12/08/16 09:23 Dose: 100 mg Metoprolol Tartrate (Lopressor) 25 mg PO BID [facility] Last Admin: 12/08/16 17:55 Dose: 25 mg Nitroglycerin (Nitrostat Sl Tab) 0.4 mg SL Q15M PRN PRN Reason: chest pain - Labs Labs: 12/09/16 05:54 12/09/16 05:54 PT 11.1 SECONDS (9.7-12.2) 12/04/16 04:56 INR 1.0 12/04/16 04:56 APTT 60 SECONDS (21-34) H 12/09/16 05:54 - Constitutional Appears: No Acute Distress, Chronically Ill - Head Exam Head Exam: ATRAUMATIC, NORMAL INSPECTION - Eye Exam Eye Exam: EOMI, Normal appearance - Neck Exam Neck Exam: Normal Inspection. absent: Tenderness - Respiratory Exam Respiratory Exam: Clear to Ausculation Bilateral, NORMAL BREATHING PATTERN - Cardiovascular Exam Cardiovascular Exam: REGULAR RHYTHM, +S1 - GI/Abdominal Exam GI & Abdominal Exam: Distended, Soft. 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
[2016-12-09] MEDS: Lactobacillus Acidophilus 500 MU Cap PO SCH ×2 (10:00→18:14)
[2016-12-09] MEDS: Epoetin Alfa 10,000 unit/ml Dialysis IV SCH (10:25)
--- NOTE | 2016-12-09 11:53 | CP.PCM.PN ---
Subjective - Date & Time of Evaluation Date of Evaluation: 12/09/16 Time of Evaluation: 10:30 - Subjective Subjective: patient seen and examined. Seen during hemodialysis in no respiratory distress Much more awake and responsive Objective - Vital Signs/Intake and Output Vital Signs (last 24 hours): Temp Pulse Resp BP Pulse Ox 97.8 F 85 17 138/83 100 12/09/16 09:45 12/09/16 09:45 12/09/16 09:45 12/09/16 11:24 12/09/16 09:45 Intake and Output: 12/09/16 12/09/16 06:59 18:59 Intake Total 196 Output Total 40 Balance 156 - Medications Medications: Current Medications Acetaminophen (Tylenol 325mg Tab) 650 mg PO Q6 PRN PRN Reason: temp > 99.5 Last Admin: 11/23/16 18:44 Dose: 650 mg Albuterol/Ipratropium (Duoneb 3 Mg/0.5 Mg (3 Ml) Ud) 3 ml INH RQ6 [facility] Last Admin: 12/09/16 07:43 Dose: Not Given Aspirin (Ecotrin) 81 mg PO DAILY [facility] Last Admin: 12/09/16 10:00 Dose: 81 mg Calcium Acetate (Phoslo) 667 mg PO TIDCC [facility] Last Admin: 12/09/16 08:59 Dose: 667 mg Docusate Sodium (Colace) 100 mg PO BID [facility] Last Admin: 12/09/16 10:01 Dose: Not Given Epoetin Mik (Procrit) 10,000 unit IV MWF [facility] Last Admin: 12/09/16 10:25 Dose: 10,000 unit Famotidine (Pepcid) 20 mg PO DAILY [facility] Last Admin: 12/09/16 10:01 Dose: 20 mg Folic Acid (Folic Acid) 1 mg PO DAILY [facility] Last Admin: 12/09/16 10:00 Dose: 1 mg Fosphenytoin Sodium 100 mg/ (Sodium Chloride) 52 mls @ 100 mls/hr IV Q8H [facility] Last Admin: 12/09/16 10:00 Dose: 100 mls/hr Insulin Human Regular (Novolin R) 0 unit SC ACHS [facility] PRN Reason: Protocol Last Admin: 12/03/16 16:30 Dose: Not Given Lactobacillus Acidophilus (Bacid Acidophilus) 1 cap PO BID [facility] Last Admin: 12/09/16 10:00 Dose: 1 cap Losartan Potassium (Cozaar) 100 mg PO DAILY [facility] Last Admin: 12/09/16 10:00 Dose: Not Given Metoprolol Tartrate (Lopressor) 25 mg PO BID [facility] Last Admin: 12/09/16 10:01 Dose: Not Given Nitroglycerin (Nitrostat Sl Tab) 0.4 mg SL Q15M PRN PRN Reason: chest pain - Labs Labs: 12/09/16 05:54 12/09/16 05:54 PT 11.1 SECONDS (9.7-12.2) 12/04/16 04:56 INR 1.0 12/04/16 04:56 APTT 60 SECONDS (21-34) H 12/09/16 05:54 - Constitutional Appears: No Acute Distress - Eye Exam Eye Exam: Normal appearance - ENT Exam ENT Exam: Mucous Membranes Moist - Neck Exam Neck Exam: Normal Inspection - Respiratory Exam Respiratory Exam: Clear to Ausculation Bilateral Assessment and Plan (1) Pulmonary emboli Status: Acute (2) Intra-abdominal abscess Status: Acute
--- NOTE | 2016-12-09 13:27 | CP.PCM.PN ---
Subjective - Date & Time of Evaluation Date of Evaluation: 12/09/16 Time of Evaluation: 09:00 - Subjective Subjective: has been afebrile , eating better. Much more alert, fully oriented now still has drain in place Objective - Vital Signs/Intake and Output Vital Signs (last 24 hours): Temp Pulse Resp BP Pulse Ox 97.8 F 85 17 128/88 100 12/09/16 09:45 12/09/16 09:45 12/09/16 09:45 12/09/16 12:46 12/09/16 09:45 Intake and Output: 12/09/16 12/09/16 06:59 18:59 Intake Total 196 Output Total 40 Balance 156 - Medications Medications: Current Medications Acetaminophen (Tylenol 325mg Tab) 650 mg PO Q6 PRN PRN Reason: temp > 99.5 Last Admin: 11/23/16 18:44 Dose: 650 mg Albuterol/Ipratropium (Duoneb 3 Mg/0.5 Mg (3 Ml) Ud) 3 ml INH RQ6 [facility] Last Admin: 12/09/16 07:43 Dose: Not Given Aspirin (Ecotrin) 81 mg PO DAILY [facility] Last Admin: 12/09/16 10:00 Dose: 81 mg Calcium Acetate (Phoslo) 667 mg PO TIDCC [facility] Last Admin: 12/09/16 08:59 Dose: 667 mg Docusate Sodium (Colace) 100 mg PO BID [facility] Last Admin: 12/09/16 10:01 Dose: Not Given Epoetin Mik (Procrit) 10,000 unit IV MWF [facility] Last Admin: 12/09/16 10:25 Dose: 10,000 unit Famotidine (Pepcid) 20 mg PO DAILY [facility] Last Admin: 12/09/16 10:01 Dose: 20 mg Folic Acid (Folic Acid) 1 mg PO DAILY [facility] Last Admin: 12/09/16 10:00 Dose: 1 mg Fosphenytoin Sodium 100 mg/ (Sodium Chloride) 52 mls @ 100 mls/hr IV Q8H [facility] Last Admin: 12/09/16 10:00 Dose: 100 mls/hr Insulin Human Regular (Novolin R) 0 unit SC ACHS [facility] PRN Reason: Protocol Last Admin: 12/03/16 16:30 Dose: Not Given Lactobacillus Acidophilus (Bacid Acidophilus) 1 cap PO BID [facility] Last Admin: 12/09/16 10:00 Dose: 1 cap Losartan Potassium (Cozaar) 100 mg PO DAILY [facility] Last Admin: 12/09/16 10:00 Dose: Not Given Metoprolol Tartrate (Lopressor) 25 mg PO BID [facility] Last Admin: 12/09/16 10:01 Dose: Not Given Nitroglycerin (Nitrostat Sl Tab) 0.4 mg SL Q15M PRN PRN Reason: chest pain - Labs Labs: 12/09/16 05:54 12/09/16 05:54 PT 11.1 SECONDS (9.7-12.2) 12/04/16 04:56 INR 1.0 12/04/16 04:56 APTT 60 SECONDS (21-34) H 12/09/16 05:54 - Constitutional Appears: Non-toxic, Chronically Ill - Head Exam Head Exam: NORMOCEPHALIC - Eye Exam Eye Exam: PERRL. absent: Scleral icterus - ENT Exam ENT Exam: Mucous Membranes Dry - Neck Exam Neck Exam: absent: Lymphadenopathy - Respiratory Exam Respiratory Exam: Clear to Ausculation Bilateral - Cardiovascular Exam Cardiovascular Exam: REGULAR RHYTHM - GI/Abdominal Exam GI & Abdominal Exam: Distended Assessment and Plan (1) ESRD (end stage renal disease) Status: Chronic (2) Intra-abdominal abscess Status: Acute
--- NOTE | 2016-12-09 14:35 | CP.PCM.PN ---
Subjective - Date & Time of Evaluation Date of Evaluation: 12/09/16 Time of Evaluation: 14:34 - Subjective Subjective: for permacath exchange Friday am Objective - Vital Signs/Intake and Output Vital Signs (last 24 hours): Temp Pulse Resp BP Pulse Ox 98.3 F 98 H 19 132/84 100 12/09/16 13:16 12/09/16 13:16 12/09/16 13:16 12/09/16 13:16 12/09/16 13:16 Intake and Output: 12/09/16 12/09/16 06:59 18:59 Intake Total 196 Output Total 40 Balance 156 - Medications Medications: Current Medications Acetaminophen (Tylenol 325mg Tab) 650 mg PO Q6 PRN PRN Reason: temp > 99.5 Last Admin: 11/23/16 18:44 Dose: 650 mg Albuterol/Ipratropium (Duoneb 3 Mg/0.5 Mg (3 Ml) Ud) 3 ml INH RQ6 [facility] Last Admin: 12/09/16 13:36 Dose: Not Given Aspirin (Ecotrin) 81 mg PO DAILY [facility] Last Admin: 12/09/16 10:00 Dose: 81 mg Calcium Acetate (Phoslo) 667 mg PO TIDCC [facility] Last Admin: 12/09/16 08:59 Dose: 667 mg Docusate Sodium (Colace) 100 mg PO BID [facility] Last Admin: 12/09/16 10:01 Dose: Not Given Epoetin Mik (Procrit) 10,000 unit IV MWF [facility] Last Admin: 12/09/16 10:25 Dose: 10,000 unit Famotidine (Pepcid) 20 mg PO DAILY [facility] Last Admin: 12/09/16 10:01 Dose: 20 mg Folic Acid (Folic Acid) 1 mg PO DAILY [facility] Last Admin: 12/09/16 10:00 Dose: 1 mg Fosphenytoin Sodium 100 mg/ (Sodium Chloride) 52 mls @ 100 mls/hr IV Q8H [facility] Last Admin: 12/09/16 10:00 Dose: 100 mls/hr Insulin Human Regular (Novolin R) 0 unit SC ACHS [facility] PRN Reason: Protocol Last Admin: 12/03/16 16:30 Dose: Not Given Lactobacillus Acidophilus (Bacid Acidophilus) 1 cap PO BID [facility] Last Admin: 12/09/16 10:00 Dose: 1 cap Losartan Potassium (Cozaar) 100 mg PO DAILY [facility] Last Admin: 12/09/16 10:00 Dose: Not Given Metoprolol Tartrate (Lopressor) 25 mg PO BID [facility] Last Admin: 12/09/16 10:01 Dose: Not Given Nitroglycerin (Nitrostat Sl Tab) 0.4 mg SL Q15M PRN PRN Reason: chest pain - Labs Labs: 12/09/16 05:54 12/09/16 05:54 PT 11.1 SECONDS (9.7-12.2) 12/04/16 04:56 INR 1.0 12/04/16 04:56 APTT 60 SECONDS (21-34) H 12/09/16 05:54
--- NOTE | 2016-12-09 15:24 | CP.PCM.PN ---
Subjective - Date & Time of Evaluation Date of Evaluation: 12/09/16 Time of Evaluation: 15:22 - Subjective Subjective: Pt doing well, eating lunch when seen. Observed to be coughing intermittently and says that her throat very dry. Explained pt on ipratropium which dries up phlegm. Pt also has had no BM x 3 days. > Noted Surgery notes: for permacath exchange bec of frequent clogging of current appliance. Otherwise pt has remained stable. Objective - Vital Signs/Intake and Output Vital Signs (last 24 hours): Temp Pulse Resp BP Pulse Ox 98.3 F 98 H 19 132/84 100 12/09/16 13:16 12/09/16 13:16 12/09/16 13:16 12/09/16 13:16 12/09/16 13:16 Intake and Output: 12/09/16 12/09/16 06:59 18:59 Intake Total 196 Output Total 40 Balance 156 - Medications Medications: Current Medications Acetaminophen (Tylenol 325mg Tab) 650 mg PO Q6 PRN PRN Reason: temp > 99.5 Last Admin: 11/23/16 18:44 Dose: 650 mg Albuterol Sulfate (Albuterol 0.083% Inhal Angelica (2.5 Mg/3 Ml) Ud) 2.5 mg INH RQ6 [facility] Aspirin (Ecotrin) 81 mg PO DAILY [facility] Last Admin: 12/09/16 10:00 Dose: 81 mg Bisacodyl (Dulcolax) 10 mg DC ONCE ONE Stop: 12/09/16 15:21 Calcium Acetate (Phoslo) 667 mg PO TIDCC [facility] Last Admin: 12/09/16 08:59 Dose: 667 mg Docusate Sodium (Colace) 100 mg PO BID [facility] Last Admin: 12/09/16 10:01 Dose: Not Given Epoetin Mik (Procrit) 10,000 unit IV MWF [facility] Last Admin: 12/09/16 10:25 Dose: 10,000 unit Famotidine (Pepcid) 20 mg PO DAILY [facility] Last Admin: 12/09/16 10:01 Dose: 20 mg Folic Acid (Folic Acid) 1 mg PO DAILY [facility] Last Admin: 12/09/16 10:00 Dose: 1 mg Fosphenytoin Sodium 100 mg/ (Sodium Chloride) 52 mls @ 100 mls/hr IV Q8H [facility] Last Admin: 12/09/16 10:00 Dose: 100 mls/hr Insulin Human Regular (Novolin R) 0 unit SC ACHS [facility] PRN Reason: Protocol Last Admin: 12/03/16 16:30 Dose: Not Given Ipratropium [place] (Atrovent) 0.25 mg IH [id number] [facility] Lactobacillus Acidophilus (Bacid Acidophilus) 1 cap PO BID [facility] Last Admin: 12/09/16 10:00 Dose: 1 cap Losartan Potassium (Cozaar) 100 mg PO DAILY [facility] Last Admin: 12/09/16 10:00 Dose: Not Given Metoprolol Tartrate (Lopressor) 25 mg PO BID [facility] Last Admin: 12/09/16 10:01 Dose: Not Given Nitroglycerin (Nitrostat Sl Tab) 0.4 mg SL Q15M PRN PRN Reason: chest pain - Labs Labs: 12/09/16 05:54 12/09/16 05:54 PT 11.1 SECONDS (9.7-12.2) 12/04/16 04:56 INR 1.0 12/04/16 04:56 APTT 60 SECONDS (21-34) H 12/09/16 05:54 - Constitutional Appears: No Acute Distress - Head Exam Head Exam: ATRAUMATIC, NORMAL INSPECTION, NORMOCEPHALIC - Eye Exam Eye Exam: EOMI, Normal appearance, PERRL Pupil Exam: NORMAL ACCOMODATION - ENT Exam ENT Exam: Mucous Membranes Moist, Normal Exam - Neck Exam Neck Exam: Normal Inspection - Respiratory Exam Respiratory Exam: Clear to Ausculation Bilateral, NORMAL BREATHING PATTERN - Cardiovascular Exam Cardiovascular Exam: REGULAR RHYTHM - GI/Abdominal Exam GI & Abdominal Exam: Normal Bowel Sounds Additional comments: + drainage approx 20 ml, less purulent than before - Rectal Exam Rectal Exam: Deferred - Extremities Exam Extremities Exam: Normal Capillary Refill, Normal Inspection - Back Exam Back Exam: NORMAL INSPECTION - Neurological Exam Neurological Exam: Alert, Awake, CN II-XII Intact, Normal Gait, Oriented x3 Neuro motor strength exam: Left Upper Extremity: 4, Right Upper Extremity: 4, Left Lower Extremity: 4, Right Lower Extremity: 4 - Psychiatric Exam Psychiatric exam: Normal Affect, Normal Mood - Skin Skin Exam: Dry, Intact, Normal Color, Warm Assessment and Plan (1) Intra-abdominal abscess Assessment & Plan: awaiting duration of IV abx continuation from ID when pt cleared for transfer to [facility] Status: Suspected (2) Anemia of chronic disease Assessment & Plan: will monitor, now on erythropoietic agent. Status: Chronic (3) ESRD (end stage renal disease) Assessment & Plan: new HD, to continue at [facility] (?) Status: Chronic (4) Pulmonary emboli Assessment & Plan: switch to Eliquis 2.5 mg in AM Status: Acute (5) Generalized weakness Assessment & Plan: needs PT at [facility] Status: Acute (6) Hypertension Assessment & Plan: stable Status: Chronic (7) Hyponatremia Status: Inactive (8) Type 2 diabetes mellitus with diabetic nephropathy Status: Inactive (9) Hypokalemic familial periodic paralysis Status: Resolved
[2016-12-09] MEDS: Albuterol 0.083% Inhal Sol (2.5 mg/3 mL) UD INH SCH (20:11)
[2016-12-09] MEDS: Ipratropium 0.02% Inhal Soln (0.5 mg/2.5 ml) UD IH SCH ×2 (20:11)
[2016-12-10] MEDS: Albuterol 0.083% Inhal Sol (2.5 mg/3 mL) UD INH SCH ×2 (01:25→08:29)
[2016-12-10] MEDS: Ipratropium 0.02% Inhal Soln (0.5 mg/2.5 ml) UD IH SCH ×2 (01:26→08:29)
[2016-12-10] MEDS: Fosphenytoin 100 MG in Sodium Chloride 0.9% 50 ML IV SCH ×2 (02:00→19:26)
[2016-12-10 06:42] LABS: BASO # 0.1 K/uL (0.0-0.2); BASO % 0.9 % (0.0-2.0); EOS # 0.3 K/uL (0.0-0.7); EOS % 4.7 % (0.0-4.0); HEMATOCRIT 29.4 % (34.0-47.0); LYMPH # 0.9 K/uL (1.0-4.3); LYMPH % 14.7 % (20.0-40.0); MEAN CORPUSCULAR HEMOGLOBIN 29.3 pg (27.0-31.0); MEAN CORPUSCULAR HGB CONC 32.6 g/dL (33.0-37.0); MEAN PLATELET VOLUME 9.1 fL (7.2-11.7); MONO % 15.4 % (0.0-10.0); NRBC % 0.1 % (0.0-2.0); RED CELL DISTRIBUTION WIDTH 15.9 % (11.5-14.5); WHITE BLOOD COUNT 6.4 K/uL (4.8-10.8)
[2016-12-10 06:57] LABS: POTASSIUM 4.7 mmol/L (3.6-5.2)
[2016-12-10 07:00] LABS: ALB/GLOB RATIO 0.8 (1.0-2.1); BILIRUBIN,TOTAL 0.7 mg/dL (0.2-1.3); CALCIUM 9.5 mg/dl (8.6-10.4); TOTAL PROTEIN 7.2 g/dL (6.3-8.3)
[2016-12-10] MEDS ORDERED: Heparin25000 units/250ml 1/2NS 25,000 UNITS/250 ML BAG IV PRN ×2 (08:53→09:43)
[2016-12-10] MEDS ORDERED: Lidocaine 1% Inj (20ml) ONE (10:33)
[2016-12-10] MEDS ORDERED: HEPARIN-NS 5,000 UNITS/500 ML 5,000 UNIT/500 ML BAG IV ONE (10:33)
[2016-12-10] MEDS ORDERED: Etomidate 20 mg/10ml Inj IV ONE (11:03)
[2016-12-10] MEDS ORDERED: ceFAZolin IV 1 gm in Dextrose 1 GM/50 ML BAG IVPB ONE (11:17)
[2016-12-10] MEDS ORDERED: Propofol 10 mg/ml Inj (20 ML) ONE (11:34)
[2016-12-10] MEDS ORDERED: Sodium Chloride 0.9% 500 ML IV ONE (11:35)
--- NOTE | 2016-12-10 12:43 | PCM.SURG1 ---
Surgeon's Initial Post Op Note - Surgeon's Notes Surgeon: Dr. Garzon Master Sheet Clerk: Dr. Guevara Type of Anesthesia: IV Sedation, Local Pre-Operative Diagnosis: ESRD, malfunctioning permacath Operative Findings: intact permacath tip s/p removal Post-Operative Diagnosis: same Operation Performed: exchange of right IJ permacath Specimen/Specimens Removed: permacath Estimated Blood Loss: EBL {In ML}: 15 Blood Products Given: N/A Drains Used: No Drains Post-Op Condition: Good Date of Surgery/Procedure: 12/10/16 Time of Surgery/Procedure: 12:42
--- NOTE | 2016-12-10 12:48 | OP ---
PROCEDURE DATE: 12/10/2016 PREOPERATIVE DIAGNOSIS: Poor functioning PermCath. POSTOPERATIVE DIAGNOSIS: Poor functioning PermCath. PROCEDURE CARRIED OUT: Placement of PermCath via right jugular vein with C-arm fluoroscopy. SURGEON: Ash Garzon MD CDL DRIVER: None. ANESTHESIOLOGIST: . COMBAT RIFLE CREWMEMBER: Dr. Guevara The patient is an elderly woman with multiple medical problems which are being addressed and our pres ent issue is to change her poorly functioning dialysis catheter. No suspicion of infection. PROCEDURE: The old catheter was incised in the neck, grasped, wires inserted through. Initially, it showed that it was too far into the right ventricle. We then placed a same size catheter, but tunne led it out more on the chest wall with still the tip adjacent to the ventricle, but above it. We the n flushed it with heparinized saline and there was good inflow and outflow and the procedure was term inated. Blood loss was approximately 25 mL OPERATION CARRIED OUT: Placement of PermCath right jugular vein with C-arm fluoroscopy. Ash Garzon Jr., MD cc: 56 TT: 12/10/2016 12:48:01 en
--- NOTE | 2016-12-10 14:16 | RAD ---
HISTORY: permacath exchange COMPARISON: 12/06/2016 FINDINGS: LUNGS: No active pulmonary disease. PLEURA: No significant pleural effusion identified, no pneumothorax apparent. CARDIOVASCULAR: Normal. OSSEOUS STRUCTURES: No significant abnormalities. VISUALIZED UPPER ABDOMEN: Normal. OTHER FINDINGS: Right Port-A-Cath is in place with tip overlying the SVC/RA junction. IMPRESSION: No active disease. Right Port-A-Cath is in place with tip overlying the SVC/RA junction.
--- NOTE | 2016-12-10 15:39 | RAD ---
PROCEDURE: Intraoperative Fluoroscopy. HISTORY: RENAL FAILURE FINDINGS: Fluoroscopic assistance was provided for right central venous catheter placement.. Please refer to the operative report from
--- NOTE | 2016-12-10 18:25 | CP.PCM.PN ---
Subjective - Date & Time of Evaluation Date of Evaluation: 12/10/16 Time of Evaluation: 18:05 - Subjective Subjective: Pt had swap out of permacath on right IJ this lunchtime or so and returned to room approx 2 pm. No hypotension during this episode, and pt much more awake now. Able to eat with out assistance. No adverse events today, unlike previous OR. Objective - Vital Signs/Intake and Output Vital Signs (last 24 hours): Temp Pulse Resp BP Pulse Ox 97.6 F 77 20 148/84 100 12/10/16 15:08 12/10/16 15:08 12/10/16 15:08 12/10/16 17:38 12/10/16 15:08 Intake and Output: 12/10/16 12/10/16 06:59 18:59 Intake Total 159.4 50 Output Total 40 30 Balance 119.4 20 - Medications Medications: Current Medications Acetaminophen (Tylenol 325mg Tab) 650 mg PO Q6 PRN PRN Reason: temp > 99.5 Last Admin: 11/23/16 18:44 Dose: 650 mg Albuterol Sulfate (Albuterol 0.083% Inhal Angelica (2.5 Mg/3 Ml) Ud) 2.5 mg INH RQ6 [facility] Last Admin: 12/10/16 08:29 Dose: Not Given Aspirin (Ecotrin) 81 mg PO DAILY [facility] Last Admin: 12/09/16 10:00 Dose: 81 mg Calcium Acetate (Phoslo) 667 mg PO TIDCC [facility] Last Admin: 12/10/16 17:38 Dose: 667 mg Docusate Sodium (Colace) 100 mg PO BID [facility] Last Admin: 12/10/16 17:38 Dose: 100 mg Epoetin Mik (Procrit) 10,000 unit IV MWF [facility] Last Admin: 12/09/16 10:25 Dose: 10,000 unit Famotidine (Pepcid) 20 mg PO DAILY [facility] Last Admin: 12/09/16 10:01 Dose: 20 mg Folic Acid (Folic Acid) 1 mg PO DAILY [facility] Last Admin: 12/09/16 10:00 Dose: 1 mg Fosphenytoin Sodium 100 mg/ (Sodium Chloride) 52 mls @ 100 mls/hr IV Q8H [facility] Last Admin: 12/10/16 02:00 Dose: 100 mls/hr Heparin Sodium/Sodium Chloride (Heparin 70286 Units/250ml 1/2 Normal Saline) 25 ,000 units in 250 mls @ 5.185 mls/hr IV .Q24H PRN; Protocol; 9 UNITS/KG/HR PRN Reason: PROTOCOL Last Admin: 12/10/16 17:23 Dose: 9 units/kg/hr, 5.185 mls/hr Insulin Human Regular (Novolin R) 0 unit SC ACHS [facility] PRN Reason: Protocol Last Admin: 12/03/16 16:30 Dose: Not Given Ipratropium [place] (Atrovent) 0.25 mg IH RQ6 [facility] Last Admin: 12/10/16 08:29 Dose: Not Given Lactobacillus Acidophilus (Bacid Acidophilus) 1 cap PO BID [facility] Last Admin: 12/09/16 18:14 Dose: 1 cap Losartan Potassium (Cozaar) 100 mg PO DAILY [facility] Last Admin: 12/10/16 10:16 Dose: 100 mg Metoprolol Tartrate (Lopressor) 25 mg PO BID [facility] Last Admin: 12/10/16 17:38 Dose: 25 mg Nitroglycerin (Nitrostat Sl Tab) 0.4 mg SL Q15M PRN PRN Reason: chest pain - Labs Labs: 12/10/16 06:29 12/10/16 06:29 PT 11.1 SECONDS (9.7-12.2) 12/04/16 04:56 INR 1.0 12/04/16 04:56 APTT 53 SECONDS (21-34) H D 12/10/16 06:29 - Constitutional Appears: No Acute Distress - Head Exam Head Exam: ATRAUMATIC, NORMAL INSPECTION, NORMOCEPHALIC - Eye Exam Eye Exam: Normal appearance - ENT Exam ENT Exam: Mucous Membranes Moist, Normal Exam - Neck Exam Neck Exam: Normal Inspection - Respiratory Exam Respiratory Exam: Clear to Ausculation Bilateral, NORMAL BREATHING PATTERN - Cardiovascular Exam Cardiovascular Exam: REGULAR RHYTHM - GI/Abdominal Exam GI & Abdominal Exam: Soft, Normal Bowel Sounds Additional comments: + purulent LINK drainage still - Rectal Exam Rectal Exam: Deferred - Extremities Exam Extremities Exam: Full ROM, Normal Inspection - Back Exam Back Exam: NORMAL INSPECTION - Neurological Exam Neuro motor strength exam: Left Upper Extremity: 4, Right Upper Extremity: 4, Left Lower Extremity: 4, Right Lower Extremity: 4 - Psychiatric Exam Psychiatric exam: Normal Affect, Normal Mood - Skin Skin Exam: Dry, Intact, Normal Color, Warm Assessment and Plan (1) Intra-abdominal abscess Assessment & Plan: appears resolving,will continue to monitor through drainage appearance. Status: Resolved (2) Anemia of chronic disease Assessment & Plan: appears stable Status: Chronic (3) ESRD (end stage renal disease) Assessment & Plan: continue HD Status: Chronic (4) Pulmonary emboli Assessment & Plan: will switch to Eliquis when permacath replacement done Status: Acute (5) Generalized weakness Assessment & Plan: for [facility]IO Status: Acute (6) Hypertension Assessment & Plan: much better now than before Status: Chronic (7) Hypokalemic familial periodic paralysis Status: Resolved
[2016-12-10] MEDS: Lactobacillus Acidophilus 500 MU Cap PO SCH (18:30)
[2016-12-10] MEDS: (Novolin R) Insulin Human Regular 100 units/ml vial SC SCH (22:35)
[2016-12-11] MEDS: Ipratropium 0.02% Inhal Soln (0.5 mg/2.5 ml) UD IH SCH ×2 (01:22→07:15)
[2016-12-11] MEDS: Albuterol 0.083% Inhal Sol (2.5 mg/3 mL) UD INH SCH ×2 (01:22→07:16)
[2016-12-11] MEDS: Fosphenytoin 100 MG in Sodium Chloride 0.9% 50 ML IV SCH ×4 (02:44→19:10)
[2016-12-11 05:40] LABS: BASO # 0.1 K/uL (0.0-0.2); BASO % 0.8 % (0.0-2.0); EOS # 0.4 K/uL (0.0-0.7); EOS % 5.8 % (0.0-4.0); HEMATOCRIT 27.9 % (34.0-47.0); LYMPH # 1.1 K/uL (1.0-4.3); LYMPH % 13.9 % (20.0-40.0); MEAN CELL VOLUME 90.1 fL (81.0-99.0); MEAN CORPUSCULAR HEMOGLOBIN 29.3 pg (27.0-31.0); MEAN CORPUSCULAR HGB CONC 32.5 g/dL (33.0-37.0); MEAN PLATELET VOLUME 8.5 fL (7.2-11.7); MONO # 1.1 K/uL (0.0-0.8); MONO % 14.3 % (0.0-10.0); RED CELL DISTRIBUTION WIDTH 16.5 % (11.5-14.5); WHITE BLOOD COUNT 7.6 K/uL (4.8-10.8)
[2016-12-11 05:47] LABS: INR 0.9
[2016-12-11 05:54] LABS: ALB/GLOB RATIO 0.8 (1.0-2.1); BILIRUBIN,TOTAL 0.7 mg/dL (0.2-1.3); CALCIUM 9.5 mg/dl (8.6-10.4); TOTAL PROTEIN 6.9 g/dL (6.3-8.3)
[2016-12-11] MEDS: (Novolin R) Insulin Human Regular 100 units/ml vial SC SCH ×4 (08:39→22:15)
--- NOTE | 2016-12-11 09:57 | CP.PCM.PN ---
Subjective - Date & Time of Evaluation Date of Evaluation: 12/11/16 Time of Evaluation: 09:54 - Subjective Subjective: Surgery: Dr. Garzon Patient very awake and conversant today. She is in good spirits. She reports some pain to the [facility] last night but states today it feels good. She reports her HD is scheduled for today. Objective - Vital Signs/Intake and Output Vital Signs (last 24 hours): Temp Pulse Resp BP Pulse Ox 97.7 F 95 H 20 159/87 H 99 12/11/16 07:00 12/11/16 07:00 12/11/16 07:00 12/11/16 07:00 12/11/16 07:00 Intake and Output: 12/11/16 12/11/16 06:59 18:59 Intake Total 210 Output Total 45 Balance 165 - Medications Medications: Current Medications Acetaminophen (Tylenol 325mg Tab) 650 mg PO Q6 PRN PRN Reason: temp > 99.5 Last Admin: 11/23/16 18:44 Dose: 650 mg Albuterol Sulfate (Albuterol 0.083% Inhal Angelica (2.5 Mg/3 Ml) Ud) 2.5 mg INH RQ6 [facility] Last Admin: 12/11/16 07:16 Dose: 2.5 mg Aspirin (Ecotrin) 81 mg PO DAILY [facility] Last Admin: 12/09/16 10:00 Dose: 81 mg Calcium Acetate (Phoslo) 667 mg PO TIDCC [facility] Last Admin: 12/11/16 08:35 Dose: 667 mg Docusate Sodium (Colace) 100 mg PO BID [facility] Last Admin: 12/10/16 17:38 Dose: 100 mg Famotidine (Pepcid) 20 mg PO DAILY [facility] Last Admin: 12/09/16 10:01 Dose: 20 mg Folic Acid (Folic Acid) 1 mg PO DAILY [facility] Last Admin: 12/09/16 10:00 Dose: 1 mg Fosphenytoin Sodium 100 mg/ (Sodium Chloride) 52 mls @ 100 mls/hr IV Q8H [facility] Last Admin: 12/11/16 02:44 Dose: 100 mls/hr Heparin Sodium/Sodium Chloride (Heparin 89466 Units/250ml 1/2 Normal Saline) 25 ,000 units in 250 mls @ 5.185 mls/hr IV .Q24H PRN; Protocol; 9 UNITS/KG/HR PRN Reason: PROTOCOL Last Admin: 12/10/16 17:23 Dose: 9 units/kg/hr, 5.185 mls/hr Insulin Human Regular (Novolin R) 0 unit SC ACHS [facility] PRN Reason: Protocol Last Admin: 12/11/16 08:39 Dose: Not Given Ipratropium [place] (Atrovent) 0.25 mg IH RQ6 [facility] Last Admin: 12/11/16 07:15 Dose: 0.25 mg Lactobacillus Acidophilus (Bacid Acidophilus) 1 cap PO BID [facility] Last Admin: 12/10/16 18:30 Dose: 1 cap Losartan Potassium (Cozaar) 100 mg PO DAILY [facility] Last Admin: 12/10/16 10:16 Dose: 100 mg Metoprolol Tartrate (Lopressor) 25 mg PO BID [facility] Last Admin: 12/10/16 17:38 Dose: 25 mg Nitroglycerin (Nitrostat Sl Tab) 0.4 mg SL Q15M PRN PRN Reason: chest pain - Labs Labs: 12/11/16 05:36 12/11/16 05:36 PT 10.0 SECONDS (9.7-12.2) 12/11/16 05:36 INR 0.9 12/11/16 05:36 APTT 67 SECONDS (21-34) H D 12/11/16 05:36 - Constitutional Appears: Non-toxic, No Acute Distress - Head Exam Head Exam: ATRAUMATIC, NORMOCEPHALIC - Eye Exam Eye Exam: EOMI, Normal appearance - ENT Exam ENT Exam: Mucous Membranes Moist - Respiratory Exam Respiratory Exam: NORMAL BREATHING PATTERN. absent: Respiratory Distress - Cardiovascular Exam Cardiovascular Exam: REGULAR RHYTHM. absent: Tachycardia - GI/Abdominal Exam GI & Abdominal Exam: Soft. absent: Distended, Tenderness - Neurological Exam Neurological Exam: Alert, Awake - Psychiatric Exam Psychiatric exam: Normal Affect, Normal Mood - Skin Skin Exam: Dry, Normal Color, Warm Assessment and Plan - Assessment and Plan (Free Text) Assessment: 71 y/o female s/p permacath exchange POD1 Plan: -ok for HD through permacath -will remove silva drain in abdomen upon d/c -cont medical management per primary -no further surgical intervention at this time -further recs per Dr. Ryann Warner PGY1
[2016-12-11] MEDS: Epoetin Alfa 10,000 unit/ml Dialysis IV SCH ×2 (10:57→10:58)
[2016-12-11] MEDS: Albuterol-Ipratrop 3 mg / 0.5 (3 ml) UD INH SCH ×2 (13:16→20:45)
[2016-12-11] MEDS: Lactobacillus Acidophilus 500 MU Cap PO SCH ×2 (13:35→19:11)
--- NOTE | 2016-12-11 15:21 | CP.PCM.PN ---
Subjective - Date & Time of Evaluation Date of Evaluation: 12/11/16 Time of Evaluation: 13:15 - Subjective Subjective: s/p HD today, 2 kg uf some hypotension permcath exchanged yesterdayno chest pain no sob anuric no fever no chills appetite good moving bowels no rash no headache brief abdominal pain during HD, ? related to drop in bp Objective - Vital Signs/Intake and Output Vital Signs (last 24 hours): Temp Pulse Resp BP Pulse Ox 97.8 F 111 H 18 115/79 100 12/11/16 13:32 12/11/16 13:32 12/11/16 13:32 12/11/16 13:35 12/11/16 13:32 Intake and Output: 12/11/16 12/11/16 06:59 18:59 Intake Total 210 Output Total 45 Balance 165 - Medications Medications: Current Medications Acetaminophen (Tylenol 325mg Tab) 650 mg PO Q6 PRN PRN Reason: temp > 99.5 Last Admin: 11/23/16 18:44 Dose: 650 mg Albuterol/Ipratropium (Duoneb 3 Mg/0.5 Mg (3 Ml) Ud) 3 ml INH RQ6 [facility] Last Admin: 12/11/16 13:16 Dose: Not Given Aspirin (Ecotrin) 81 mg PO DAILY [facility] Last Admin: 12/11/16 13:34 Dose: 81 mg Calcium Acetate (Phoslo) 667 mg PO TIDCC [facility] Last Admin: 12/11/16 13:36 Dose: 667 mg Docusate Sodium (Colace) 100 mg PO BID [facility] Last Admin: 12/11/16 13:36 Dose: 100 mg Epoetin Mik (Procrit) 10,000 unit IV MWF [facility] Stop: 12/21/16 11:00 Last Admin: 12/11/16 10:57 Dose: 10,000 unit Famotidine (Pepcid) 20 mg PO DAILY [facility] Last Admin: 12/11/16 13:37 Dose: 20 mg Folic Acid (Folic Acid) 1 mg PO DAILY [facility] Last Admin: 12/11/16 13:37 Dose: 1 mg Fosphenytoin Sodium 100 mg/ (Sodium Chloride) 52 mls @ 100 mls/hr IV Q8H [facility] Last Admin: 12/11/16 13:33 Dose: 100 mls/hr Heparin Sodium/Sodium Chloride (Heparin 33648 Units/250ml 1/2 Normal Saline) 25 ,000 units in 250 mls @ 5.185 mls/hr IV .Q24H PRN; Protocol; 9 UNITS/KG/HR PRN Reason: PROTOCOL Last Admin: 12/10/16 17:23 Dose: 9 units/kg/hr, 5.185 mls/hr Insulin Human Regular (Novolin R) 0 unit SC ACHS [facility] PRN Reason: Protocol Last Admin: 12/11/16 13:40 Dose: Not Given Lactobacillus Acidophilus (Bacid Acidophilus) 1 cap PO BID [facility] Last Admin: 12/11/16 13:35 Dose: 1 cap Losartan Potassium (Cozaar) 100 mg PO DAILY [facility] Last Admin: 12/11/16 11:00 Dose: Not Given Metoprolol Tartrate (Lopressor) 25 mg PO BID [facility] Last Admin: 12/11/16 13:35 Dose: 25 mg Nitroglycerin (Nitrostat Sl Tab) 0.4 mg SL Q15M PRN PRN Reason: chest pain - Labs Labs: 12/11/16 05:36 12/11/16 05:36 PT 10.0 SECONDS (9.7-12.2) 12/11/16 05:36 INR 0.9 12/11/16 05:36 APTT 67 SECONDS (21-34) H D 12/11/16 05:36 - Constitutional Appears: Chronically Ill - Head Exam Head Exam: ATRAUMATIC - Eye Exam Eye Exam: EOMI - ENT Exam ENT Exam: Mucous Membranes Moist - Neck Exam Neck Exam: Full ROM. absent: Lymphadenopathy - Cardiovascular Exam Cardiovascular Exam: REGULAR RHYTHM. absent: Rubs - GI/Abdominal Exam GI & Abdominal Exam: Soft Additional comments: lin with drainage - Extremities Exam Extremities Exam: absent: Pedal Edema Assessment and Plan - Assessment and Plan (Free Text) Plan: maint HD continue wound care LIN in has picc line, on AB continue rehab and nutrition
--- NOTE | 2016-12-11 16:49 | CP.PCM.PN ---
Subjective - Date & Time of Evaluation Date of Evaluation: 12/11/16 Time of Evaluation: 15:00 - Subjective Subjective: Patient seen and examined. Lying comfortably in no acute distress Status post hemodialysis today Awake and responsive and wants to go home Continue present treatment and follow-up if necessary Objective - Vital Signs/Intake and Output Vital Signs (last 24 hours): Temp Pulse Resp BP Pulse Ox 97.8 F 111 H 18 115/79 100 12/11/16 13:32 12/11/16 13:32 12/11/16 13:32 12/11/16 13:35 12/11/16 13:32 Intake and Output: 12/11/16 12/11/16 06:59 18:59 Intake Total 210 390.8 Output Total 45 20 Balance 165 370.8 - Medications Medications: Current Medications Acetaminophen (Tylenol 325mg Tab) 650 mg PO Q6 PRN PRN Reason: temp > 99.5 Last Admin: 11/23/16 18:44 Dose: 650 mg Albuterol/Ipratropium (Duoneb 3 Mg/0.5 Mg (3 Ml) Ud) 3 ml INH RQ6 [facility] Last Admin: 12/11/16 13:16 Dose: Not Given Aspirin (Ecotrin) 81 mg PO DAILY [facility] Last Admin: 12/11/16 13:34 Dose: 81 mg Calcium Acetate (Phoslo) 667 mg PO TIDCC [facility] Last Admin: 12/11/16 13:36 Dose: 667 mg Docusate Sodium (Colace) 100 mg PO BID [facility] Last Admin: 12/11/16 13:36 Dose: 100 mg Epoetin Mik (Procrit) 10,000 unit IV MWF [facility] Stop: 12/21/16 11:00 Last Admin: 12/11/16 10:57 Dose: 10,000 unit Famotidine (Pepcid) 20 mg PO DAILY [facility] Last Admin: 12/11/16 13:37 Dose: 20 mg Folic Acid (Folic Acid) 1 mg PO DAILY [facility] Last Admin: 12/11/16 13:37 Dose: 1 mg Fosphenytoin Sodium 100 mg/ (Sodium Chloride) 52 mls @ 100 mls/hr IV Q8H [facility] Last Admin: 12/11/16 13:33 Dose: 100 mls/hr Heparin Sodium/Sodium Chloride (Heparin 12364 Units/250ml 1/2 Normal Saline) 25 ,000 units in 250 mls @ 5.185 mls/hr IV .Q24H PRN; Protocol; 9 UNITS/KG/HR PRN Reason: PROTOCOL Last Admin: 12/10/16 17:23 Dose: 9 units/kg/hr, 5.185 mls/hr Insulin Human Regular (Novolin R) 0 unit SC ACHS [facility] PRN Reason: Protocol Last Admin: 12/11/16 13:40 Dose: Not Given Lactobacillus Acidophilus (Bacid Acidophilus) 1 cap PO BID [facility] Last Admin: 12/11/16 13:35 Dose: 1 cap Losartan Potassium (Cozaar) 100 mg PO DAILY [facility] Last Admin: 12/11/16 11:00 Dose: Not Given Metoprolol Tartrate (Lopressor) 25 mg PO BID [facility] Last Admin: 12/11/16 13:35 Dose: 25 mg Nitroglycerin (Nitrostat Sl Tab) 0.4 mg SL Q15M PRN PRN Reason: chest pain - Labs Labs: 12/11/16 05:36 12/11/16 05:36 PT 10.0 SECONDS (9.7-12.2) 12/11/16 05:36 INR 0.9 12/11/16 05:36 APTT 67 SECONDS (21-34) H D 12/11/16 05:36 Assessment and Plan (1) Pulmonary emboli Status: Acute (2) Intra-abdominal abscess Status: Suspected
--- NOTE | 2016-12-11 21:41 | CP.PCM.PN ---
Subjective - Date & Time of Evaluation Date of Evaluation: 12/11/16 Time of Evaluation: 21:38 - Subjective Subjective: Pt seen and examined at bedside. Relates that she had HD today which was uneventful and tolerated procedure well. Pt needs to be switched to oral anticoagulant before discharge and will switch in AM. Continue HD today. > Will ask all services for final instructions for discharge tentatively scheduled for Friday after HD. Pt to go to [facility] for rehabilitation. HD facility to be decided by [facility] with family preferring [facility] as pt's son, Leander, a HD injection mold tooling technician, works for said [employer]. Objective - Vital Signs/Intake and Output Vital Signs (last 24 hours): Temp Pulse Resp BP Pulse Ox 98.7 F 95 H 18 130/81 100 12/11/16 16:00 12/11/16 16:00 12/11/16 16:00 12/11/16 19:13 12/11/16 16:00 Intake and Output: 12/11/16 12/12/16 18:59 06:59 Intake Total 390.8 Output Total 20 Balance 370.8 - Medications Medications: Current Medications Acetaminophen (Tylenol 325mg Tab) 650 mg PO Q6 PRN PRN Reason: temp > 99.5 Last Admin: 11/23/16 18:44 Dose: 650 mg Albuterol/Ipratropium (Duoneb 3 Mg/0.5 Mg (3 Ml) Ud) 3 ml INH RQ6 [facility] Last Admin: 12/11/16 20:45 Dose: 3 ml Aspirin (Ecotrin) 81 mg PO DAILY [facility] Last Admin: 12/11/16 13:34 Dose: 81 mg Calcium Acetate (Phoslo) 667 mg PO TIDCC [facility] Last Admin: 12/11/16 19:13 Dose: 667 mg Docusate Sodium (Colace) 100 mg PO BID [facility] Last Admin: 12/11/16 19:17 Dose: 100 mg Epoetin Mik (Procrit) 10,000 unit IV MWF [facility] Stop: 12/21/16 11:00 Last Admin: 12/11/16 10:57 Dose: 10,000 unit Famotidine (Pepcid) 20 mg PO DAILY [facility] Last Admin: 12/11/16 13:37 Dose: 20 mg Folic Acid (Folic Acid) 1 mg PO DAILY [facility] Last Admin: 12/11/16 13:37 Dose: 1 mg Fosphenytoin Sodium 100 mg/ (Sodium Chloride) 52 mls @ 100 mls/hr IV Q8H [facility] Last Admin: 12/11/16 19:10 Dose: 100 mls/hr Heparin Sodium/Sodium Chloride (Heparin 16597 Units/250ml 1/2 Normal Saline) 25 ,000 units in 250 mls @ 5.185 mls/hr IV .Q24H PRN; Protocol; 9 UNITS/KG/HR PRN Reason: PROTOCOL Last Admin: 12/10/16 17:23 Dose: 9 units/kg/hr, 5.185 mls/hr Insulin Human Regular (Novolin R) 0 unit SC ACHS [facility] PRN Reason: Protocol Last Admin: 12/11/16 17:30 Dose: Not Given Lactobacillus Acidophilus (Bacid Acidophilus) 1 cap PO BID [facility] Last Admin: 12/11/16 19:11 Dose: 1 cap Losartan Potassium (Cozaar) 100 mg PO DAILY [facility] Last Admin: 12/11/16 11:00 Dose: Not Given Metoprolol Tartrate (Lopressor) 25 mg PO BID [facility] Last Admin: 12/11/16 19:13 Dose: 25 mg Nitroglycerin (Nitrostat Sl Tab) 0.4 mg SL Q15M PRN PRN Reason: chest pain - Labs Labs: 12/11/16 05:36 12/11/16 05:36 PT 10.0 SECONDS (9.7-12.2) 12/11/16 05:36 INR 0.9 12/11/16 05:36 APTT 67 SECONDS (21-34) H D 12/11/16 05:36 - Constitutional Appears: No Acute Distress (slightly weak when seen 2ndry to HD) - Head Exam Head Exam: NORMAL INSPECTION, NORMOCEPHALIC - Eye Exam Eye Exam: Normal appearance - ENT Exam ENT Exam: Mucous Membranes Moist, Normal Exam - Neck Exam Neck Exam: Normal Inspection - Respiratory Exam Respiratory Exam: Decreased Breath Sounds, Clear to Ausculation Bilateral Additional comments: at bases only - Cardiovascular Exam Cardiovascular Exam: RRR, +S1, +S2 - GI/Abdominal Exam GI & Abdominal Exam: Soft, Normal Bowel Sounds Additional comments: + yellowish purulent drainage on LINK drain - Rectal Exam Rectal Exam: Deferred - Back Exam Back Exam: NORMAL INSPECTION - Neurological Exam Neurological Exam: Alert, Awake, CN II-XII Intact, Oriented x3 Neuro motor strength exam: Left Upper Extremity: 4, Right Upper Extremity: 4, Left Lower Extremity: 4, Right Lower Extremity: 4 - Psychiatric Exam Psychiatric exam: Normal Affect, Normal Mood - Skin Skin Exam: Dry, Intact, Normal Color, Warm Assessment and Plan (1) Intra-abdominal abscess Assessment & Plan: recovering. though drainage still suspiciosly purlulent in color. Less thick than the weekend though. Status: Resolved (2) Anemia of chronic disease Assessment & Plan: now on Procrit Status: Chronic (3) ESRD (end stage renal disease) Assessment & Plan: now on HD when formerly on PD Status: Chronic (4) Pulmonary emboli Assessment & Plan: does not appear to be recurring Status: Acute (5) Generalized weakness Assessment & Plan: for rehab to address Status: Acute (6) Hypertension Assessment & Plan: generally much better than before Status: Chronic (7) Hypokalemic familial periodic paralysis Assessment & Plan: resolved Status: Resolved
[2016-12-12] MEDS: Albuterol-Ipratrop 3 mg / 0.5 (3 ml) UD INH SCH ×4 (01:15→19:28)
[2016-12-12] MEDS: Fosphenytoin 100 MG in Sodium Chloride 0.9% 50 ML IV SCH (01:24)
[2016-12-12] MEDS: (Novolin R) Insulin Human Regular 100 units/ml vial SC SCH ×4 (08:55→22:08)
[2016-12-12] MEDS: Lactobacillus Acidophilus 500 MU Cap PO SCH ×2 (10:19→18:15)
--- NOTE | 2016-12-12 10:39 | CP.PCM.PN ---
Subjective - Date & Time of Evaluation Date of Evaluation: 12/12/16 Time of Evaluation: 10:36 - Subjective Subjective: Stable dialysis 12/11- UF 1800ml Feels better; still very weak Remains afebrile- eating better No n, v, f, c, diarrhea, CPs, SOB Objective - Vital Signs/Intake and Output Vital Signs (last 24 hours): Temp Pulse Resp BP Pulse Ox 97.4 F L 83 18 151/80 H 100 12/12/16 07:05 12/12/16 07:05 12/12/16 07:05 12/12/16 10:18 12/12/16 07:05 Intake and Output: 12/12/16 12/12/16 06:59 18:59 Intake Total 100 Output Total 20 Balance 80 - Medications Medications: Current Medications Acetaminophen (Tylenol 325mg Tab) 650 mg PO Q6 PRN PRN Reason: temp > 99.5 Last Admin: 11/23/16 18:44 Dose: 650 mg Albuterol/Ipratropium (Duoneb 3 Mg/0.5 Mg (3 Ml) Ud) 3 ml INH RQ6 [facility] Last Admin: 12/12/16 09:30 Dose: 3 ml Apixaban (Eliquis) 5 mg PO DAILY [facility] Last Admin: 12/12/16 10:19 Dose: 5 mg Aspirin (Ecotrin) 81 mg PO DAILY [facility] Last Admin: 12/12/16 10:20 Dose: 81 mg Calcium Acetate (Phoslo) 667 mg PO TIDCC [facility] Last Admin: 12/12/16 08:55 Dose: 667 mg Docusate Sodium (Colace) 100 mg PO BID [facility] Last Admin: 12/12/16 10:19 Dose: 100 mg Epoetin Mik (Procrit) 10,000 unit IV MWF [facility] Stop: 12/21/16 11:00 Last Admin: 12/11/16 10:57 Dose: 10,000 unit Famotidine (Pepcid) 20 mg PO DAILY [facility] Last Admin: 12/12/16 10:19 Dose: 20 mg Folic Acid (Folic Acid) 1 mg PO DAILY [facility] Last Admin: 12/12/16 10:18 Dose: 1 mg Insulin Human Regular (Novolin R) 0 unit SC ACHS [facility] PRN Reason: Protocol Last Admin: 12/12/16 08:55 Dose: Not Given Lactobacillus Acidophilus (Bacid Acidophilus) 1 cap PO BID [facility] Last Admin: 12/12/16 10:19 Dose: 1 cap Levetiracetam (Keppra) 250 mg PO BID [facility] Last Admin: 12/12/16 10:18 Dose: 250 mg Losartan Potassium (Cozaar) 100 mg PO DAILY [facility] Last Admin: 12/12/16 10:18 Dose: 100 mg Metoprolol Tartrate (Lopressor) 25 mg PO BID [facility] Last Admin: 12/12/16 10:18 Dose: 25 mg Nitroglycerin (Nitrostat Sl Tab) 0.4 mg SL Q15M PRN PRN Reason: chest pain - Labs Labs: 12/11/16 05:36 12/11/16 05:36 PT 10.0 SECONDS (9.7-12.2) 12/11/16 05:36 INR 0.9 12/11/16 05:36 APTT 60 SECONDS (21-34) H D 12/12/16 06:14 - Constitutional Appears: No Acute Distress, Chronically Ill - Head Exam Head Exam: ATRAUMATIC, NORMAL INSPECTION - Eye Exam Eye Exam: EOMI, Normal appearance - Neck Exam Neck Exam: Normal Inspection. absent: Tenderness - Respiratory Exam Respiratory Exam: Clear to Ausculation Bilateral, NORMAL BREATHING PATTERN - Cardiovascular Exam Cardiovascular Exam: REGULAR RHYTHM, +S1 - GI/Abdominal Exam GI & Abdominal Exam: Soft. absent: Tenderness - Extremities Exam Extremities Exam: Normal Inspection. 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
--- NOTE | 2016-12-12 18:14 | CP.PCM.PN ---
Subjective - Date & Time of Evaluation Date of Evaluation: 12/12/16 Time of Evaluation: 09:00 - Subjective Subjective: Feels better; still very weak Remains afebrile- eating better repesat cultures negative brother at bedside very supportive Objective - Vital Signs/Intake and Output Vital Signs (last 24 hours): Temp Pulse Resp BP Pulse Ox 98.2 F 92 H 20 135/79 100 12/12/16 15:09 12/12/16 15:09 12/12/16 15:09 12/12/16 15:09 12/12/16 15:09 Intake and Output: 12/12/16 12/12/16 06:59 18:59 Intake Total 100 Output Total 20 Balance 80 - Medications Medications: Current Medications Acetaminophen (Tylenol 325mg Tab) 650 mg PO Q6 PRN PRN Reason: temp > 99.5 Last Admin: 11/23/16 18:44 Dose: 650 mg Albuterol/Ipratropium (Duoneb 3 Mg/0.5 Mg (3 Ml) Ud) 3 ml INH RQ6 [facility] Last Admin: 12/12/16 13:20 Dose: 3 ml Apixaban (Eliquis) 5 mg PO DAILY [facility] Last Admin: 12/12/16 10:19 Dose: 5 mg Aspirin (Ecotrin) 81 mg PO DAILY [facility] Last Admin: 12/12/16 10:20 Dose: 81 mg Docusate Sodium (Colace) 100 mg PO BID [facility] Last Admin: 12/12/16 10:19 Dose: 100 mg Epoetin Mik (Procrit) 10,000 unit IV MWF [facility] Stop: 12/21/16 11:00 Last Admin: 12/11/16 10:57 Dose: 10,000 unit Famotidine (Pepcid) 20 mg PO DAILY [facility] Last Admin: 12/12/16 10:19 Dose: 20 mg Folic Acid (Folic Acid) 1 mg PO DAILY [facility] Last Admin: 12/12/16 10:18 Dose: 1 mg Insulin Human Regular (Novolin R) 0 unit SC ACHS [facility] PRN Reason: Protocol Last Admin: 12/12/16 12:00 Dose: Not Given Lactobacillus Acidophilus (Bacid Acidophilus) 1 cap PO BID [facility] Last Admin: 12/12/16 10:19 Dose: 1 cap Levetiracetam (Keppra) 250 mg PO BID [facility] Last Admin: 12/12/16 10:18 Dose: 250 mg Losartan Potassium (Cozaar) 100 mg PO DAILY [facility] Last Admin: 12/12/16 10:18 Dose: 100 mg Metoprolol Tartrate (Lopressor) 25 mg PO BID [facility] Last Admin: 12/12/16 10:18 Dose: 25 mg Nitroglycerin (Nitrostat Sl Tab) 0.4 mg SL Q15M PRN PRN Reason: chest pain - Labs Labs: 12/11/16 05:36 12/11/16 05:36 PT 10.0 SECONDS (9.7-12.2) 12/11/16 05:36 INR 0.9 12/11/16 05:36 APTT 60 SECONDS (21-34) H D 12/12/16 06:14 - Constitutional Appears: Non-toxic, Cachectic, Chronically Ill - Head Exam Head Exam: NORMOCEPHALIC - Eye Exam Eye Exam: PERRL. absent: Scleral icterus - ENT Exam ENT Exam: Mucous Membranes Dry - Neck Exam Neck Exam: absent: Lymphadenopathy - Respiratory Exam Respiratory Exam: Decreased Breath Sounds, Clear to Ausculation Bilateral - Cardiovascular Exam Cardiovascular Exam: REGULAR RHYTHM, +S1, +S2 - GI/Abdominal Exam GI & Abdominal Exam: Distended, Soft. absent: Tenderness - Rectal Exam Rectal Exam: Deferred - Exam Exam: NORMAL INSPECTION - Extremities Exam Extremities Exam: absent: Pedal Edema - Neurological Exam Neurological Exam: Alert, Awake, Oriented x3 Assessment and Plan (1) ESRD (end stage renal disease) Status: Chronic (2) Intra-abdominal abscess Status: Suspected - Assessment and Plan (Free Text) Plan: cont rx
--- NOTE | 2016-12-12 20:27 | CP.PCM.PN ---
Subjective - Date & Time of Evaluation Date of Evaluation: 12/12/16 Time of Evaluation: 08:00 - Subjective Subjective: Pt seen and examined at bedside. Recounts that she walked the halls of the floor [address] until she finally felt tired and needed to rest. Pt recovered completely after her rest, and proceeded to go about her daily ADLs. Also recounted how she had abdom pain yesterday with moderate spasms, which turned out to be constipation and was relieved with BM that night. > Discussed case with ID and based on appearance of drainage from the abdomen ( cloudy and yellowish, though thinner liquid and decreased yellow intensity), he suggested another 1-2 weeks of current abx. Therefore, will leave PICC line in place for use at [facility]. > Pt to have HD at [facility] on [facility] under her son's eyes. Objective - Vital Signs/Intake and Output Vital Signs (last 24 hours): Temp Pulse Resp BP Pulse Ox 98.2 F 92 H 20 133/79 100 12/12/16 15:09 12/12/16 15:09 12/12/16 15:09 12/12/16 18:14 12/12/16 15:09 - Medications Medications: Current Medications Acetaminophen (Tylenol 325mg Tab) 650 mg PO Q6 PRN PRN Reason: temp > 99.5 Last Admin: 11/23/16 18:44 Dose: 650 mg Albuterol/Ipratropium (Duoneb 3 Mg/0.5 Mg (3 Ml) Ud) 3 ml INH RQ6 [facility] Last Admin: 12/12/16 19:28 Dose: 3 ml Apixaban (Eliquis) 5 mg PO DAILY [facility] Last Admin: 12/12/16 10:19 Dose: 5 mg Aspirin (Ecotrin) 81 mg PO DAILY [facility] Last Admin: 12/12/16 10:20 Dose: 81 mg Calcium Acetate (Phoslo) 667 mg PO TIDCC [facility] Docusate Sodium (Colace) 100 mg PO BID [facility] Last Admin: 12/12/16 18:15 Dose: 100 mg Epoetin Mik (Procrit) 10,000 unit IV MWF [facility] Stop: 12/21/16 11:00 Last Admin: 12/11/16 10:57 Dose: 10,000 unit Famotidine (Pepcid) 20 mg PO DAILY [facility] Last Admin: 12/12/16 10:19 Dose: 20 mg Folic Acid (Folic Acid) 1 mg PO DAILY [facility] Last Admin: 12/12/16 10:18 Dose: 1 mg Insulin Human Regular (Novolin R) 0 unit SC ACHS [facility] PRN Reason: Protocol Last Admin: 12/12/16 17:30 Dose: Not Given Lactobacillus Acidophilus (Bacid Acidophilus) 1 cap PO BID [facility] Last Admin: 12/12/16 18:15 Dose: 1 cap Levetiracetam (Keppra) 250 mg PO BID [facility] Last Admin: 12/12/16 18:15 Dose: 250 mg Losartan Potassium (Cozaar) 100 mg PO DAILY [facility] Last Admin: 12/12/16 10:18 Dose: 100 mg Metoprolol Tartrate (Lopressor) 25 mg PO BID [facility] Last Admin: 12/12/16 18:14 Dose: 25 mg Nitroglycerin (Nitrostat Sl Tab) 0.4 mg SL Q15M PRN PRN Reason: chest pain - Labs Labs: 12/11/16 05:36 12/11/16 05:36 PT 10.0 SECONDS (9.7-12.2) 12/11/16 05:36 INR 0.9 12/11/16 05:36 APTT 60 SECONDS (21-34) H D 12/12/16 06:14 - Constitutional Appears: No Acute Distress - Head Exam Head Exam: ATRAUMATIC, NORMAL INSPECTION, NORMOCEPHALIC - Eye Exam Eye Exam: EOMI, Normal appearance, PERRL Pupil Exam: NORMAL ACCOMODATION - ENT Exam ENT Exam: Mucous Membranes Moist, Normal Exam - Neck Exam Neck Exam: Lymphadenopathy - Cardiovascular Exam Cardiovascular Exam: RRR, +S1, +S2 - GI/Abdominal Exam GI & Abdominal Exam: Normal Bowel Sounds - Rectal Exam Rectal Exam: Deferred - Back Exam Back Exam: CVA tenderness (L), CVA tenderness (R) - Neurological Exam Neurological Exam: Alert, Awake, CN II-XII Intact Neuro motor strength exam: Left Upper Extremity: 4, Right Upper Extremity: 4, Left Lower Extremity: 4, Right Lower Extremity: 4 - Psychiatric Exam Psychiatric exam: Normal Affect, Normal Mood - Skin Skin Exam: Dry, Intact, Normal Color, Warm Assessment and Plan (1) Intra-abdominal abscess Assessment & Plan: resolving, on IV abx Status: Resolved (2) Anemia of chronic disease Assessment & Plan: stable Status: Chronic (3) ESRD (end stage renal disease) Status: Chronic (4) Pulmonary emboli Status: Acute (5) Generalized weakness Status: Resolved (6) Hypertension Status: Chronic (7) Hypokalemic familial periodic paralysis Status: Resolved - Assessment and Plan (Free Text) Assessment: Plan for discharge in AM
[2016-12-13] MEDS: Albuterol-Ipratrop 3 mg / 0.5 (3 ml) UD INH SCH ×4 (01:09→19:34)
[2016-12-13 07:10] LABS: BASO % 0.7 % (0.0-2.0); EOS # 0.4 K/uL (0.0-0.7); EOS % 6.6 % (0.0-4.0); HEMATOCRIT 28.3 % (34.0-47.0); LYMPH # 1.1 K/uL (1.0-4.3); MEAN CELL VOLUME 91.4 fL (81.0-99.0); MEAN CORPUSCULAR HEMOGLOBIN 28.7 pg (27.0-31.0); MEAN CORPUSCULAR HGB CONC 31.4 g/dL (33.0-37.0); MEAN PLATELET VOLUME 8.4 fL (7.2-11.7); MONO # 0.9 K/uL (0.0-0.8); MONO % 14.1 % (0.0-10.0); RED CELL DISTRIBUTION WIDTH 18.8 % (11.5-14.5); WHITE BLOOD COUNT 6.5 K/uL (4.8-10.8)
[2016-12-13] MEDS: (Novolin R) Insulin Human Regular 100 units/ml vial SC SCH ×3 (07:30→16:30)
[2016-12-13 07:52] LABS: POTASSIUM 4.4 mmol/L (3.6-5.2)
[2016-12-13 07:54] LABS: IRON 55 ug/dL (37-170)
[2016-12-13 07:55] LABS: ALB/GLOB RATIO 0.8 (1.0-2.1); BILIRUBIN,TOTAL 0.6 mg/dL (0.2-1.3); CALCIUM 9.7 mg/dl (8.6-10.4); PHOSPHOROUS 5.3 mg/dL (2.5-4.5); TOTAL PROTEIN 7.2 g/dL (6.3-8.3)
[2016-12-13 07:56] LABS: MAGNESIUM 2.8 mg/dL (1.6-2.3)
--- NOTE | 2016-12-13 10:21 | CP.PCM.PCO ---
Physician Communication Note - Physician Communication Note Physician Communication Note: will remove silva prior to discharge
[2016-12-13] MEDS: Epoetin Alfa 10,000 unit/ml Dialysis IV SCH (11:21)
--- NOTE | 2016-12-13 12:43 | CP.PCM.DIS ---
Provider - Provider Date of Admission: 11/11/16 18:02 Attending physician: Geraldo Sousa MD Primary care physician: Geraldo Sousa MD Consults: Nephrology: Dr. Hansel Wall and group General and Vascular Surgery: Dr. Ash Garzon ID: Dr. Rajat Oro Radiology/Special Procedures: Dr. Dylan Cruz Pulmonary: Dr. Cassie Correa Neurology: Dr. Shazia Hendrickson Time Spent in preparation of Discharge (in minutes): 60 Diagnosis - Discharge Diagnosis (1) Intra-abdominal abscess Status: Resolved (2) Anemia of chronic disease Status: Chronic (3) ESRD (end stage renal disease) Status: Chronic (4) Pulmonary emboli Status: Acute (5) Generalized weakness Status: Acute (6) Hypertension Status: Chronic (7) Hypokalemic familial periodic paralysis Status: Resolved Hospital Course - Lab Results Lab Results: Micro Results 12/12/16 Unknown Abscess - Abdominal Gram Stain - Final 12/12/16 Unknown Abscess - Abdominal Wound Culture - Preliminary NO GROWTH AFTER 24 HOURS 12/09/16 Unknown Abscess - Abscess Gram Stain - Final 12/09/16 Unknown Abscess - Abscess Wound Culture - Final No growth. 12/10/16 08:11 Naris MRSA Culture - Final MRSA NOT DETECTED 11/25/16 15:00 Abdomen Gram Stain - Final 11/25/16 15:00 Abdomen Wound Culture - Final Enterococcus Faecium 11/25/16 17:00 Naris MRSA Culture (Admit) - Final MRSA NOT DETECTED 11/23/16 19:00 Abdomen Gram Stain - Final 11/23/16 19:00 Abdomen Wound Culture - Final Enterococcus Faecium 11/20/16 20:15 Abdomen Gram Stain - Final 11/20/16 20:15 Abdomen Wound Culture - Final Coagulase Neg Staphylococcus 11/20/16 19:00 Urine,Clean Catch Urine Culture - Final 10-50,000 CFU/ML. MULTIPLE SPECIES. PROBABLE CONTAMINATION. 11/13/16 11:09 Blood-During Dialysis Blood Culture - Final NO GROWTH AFTER 5 DAYS 11/13/16 11:09 Blood-During Dialysis Gram Stain - Final TEST NOT PERFORMED 11/13/16 11:09 Blood-During Dialysis Blood Culture - Final NO GROWTH AFTER 5 DAYS 11/13/16 11:09 Blood-During Dialysis Gram Stain - Final TEST NOT PERFORMED 11/14/16 09:30 Body Fluid - Abscess Gram Stain - Final 11/14/16 09:30 Body Fluid - Abscess Body Fluid Culture - Final Enterococcus Faecium Klebsiella Pneumoniae Most Recent Lab Values WBC 6.5 K/uL (4.8-10.8) 12/13/16 07:04 RBC 3.09 Mil/uL (3.80-5.20) L 12/13/16 07:04 Hgb 8.9 g/dL (11.0-16.0) L 12/13/16 07:04 Hct 28.3 % (34.0-47.0) L 12/13/16 07:04 MCV 91.4 fL (81.0-99.0) 12/13/16 07:04 MCH 28.7 pg (27.0-31.0) 12/13/16 07:04 MCHC 31.4 g/dL (33.0-37.0) L 12/13/16 07:04 RDW 18.8 % (11.5-14.5) H 12/13/16 07:04 Plt Count 239 K/uL (130-400) 12/13/16 07:04 MPV 8.4 fL (7.2-11.7) 12/13/16 07:04 Neut % (Auto) 61.6 % (50.0-75.0) 12/13/16 07:04 Lymph % (Auto) 17.0 % (20.0-40.0) L 12/13/16 07:04 Graham % (Auto) 14.1 % (0.0-10.0) H 12/13/16 07:04 Eos % (Auto) 6.6 % (0.0-4.0) H 12/13/16 07:04 Baso % (Auto) 0.7 % (0.0-2.0) 12/13/16 07:04 Neut # 4.0 K/uL (1.8-7.0) 12/13/16 07:04 Lymph # 1.1 K/uL (1.0-4.3) 12/13/16 07:04 Graham # 0.9 K/uL (0.0-0.8) H 12/13/16 07:04 Eos # 0.4 K/uL (0.0-0.7) 12/13/16 07:04 Baso # 0.0 K/uL (0.0-0.2) 12/13/16 07:04 Neutrophils % (Manual) 68 % (50-75) 12/05/16 06:00 Band Neutrophils % 1 % (0-2) 11/26/16 06:04 Lymphocytes % (Manual) 8 % (20-40) L 12/05/16 06:00 Reactive Lymphs % 2 % (0-0) H 11/11/16 13:20 Monocytes % (Manual) 18 % (0-10) H 12/05/16 06:00 Eosinophils % (Manual) 6 % (0-4) H 12/05/16 06:00 Myelocytes % 1 % (0-0) H 11/20/16 06:59 Hypersegmented Polys Present 11/25/16 16:52 Smudge Cells Present 11/25/16 16:52 Toxic Granulation Present 11/25/16 16:52 Platelet Estimate Normal (NORMAL) 12/05/16 06:00 Large Platelets Present 11/27/16 06:08 Polychromasia Slight 11/25/16 16:52 Hypochromasia (manual) Slight 12/05/16 06:00 Poikilocytosis (manual Slight 12/05/16 06:00 Anisocytosis (manual) Slight 12/05/16 06:00 Microcytosis (manual) Slight 11/27/16 06:08 Macrocytosis (manual) Slight 11/27/16 06:08 Target Cells Slight 12/05/16 06:00 Ovalocytes Slight 12/05/16 06:00 Cheko Cells Slight 11/22/16 06:30 PT 10.0 SECONDS (9.7-12.2) 12/11/16 05:36 INR 0.9 12/11/16 05:36 APTT 60 SECONDS (21-34) H D 12/12/16 06:14 Puncture Site Rr 12/04/16 00:50 pCO2 40 mm/Hg (35-45) 12/04/16 00:50 pO2 396 mm/Hg (80-100) H 12/04/16 00:50 HCO3 23.4 mmol/L (21-28) 12/04/16 00:50 ABG pH 7.37 (7.35-7.45) 12/04/16 00:50 ABG Total CO2 24.3 mmol/L (22-28) 12/04/16 00:50 ABG O2 Saturation 99.7 % (95-98) H 12/04/16 00:50 ABG Base Excess -2.0 mmol/L (-2.0-3.0) 12/04/16 00:50 ABG Hemoglobin 8.7 g/dL (11.7-17.4) L 11/26/16 04:20 ABG Carboxyhemoglobin 1.4 % (0.5-1.5) 11/26/16 04:20 POC ABG HHb (Measured) 0.4 % (0.0-5.0) 11/26/16 04:20 ABG Methemoglobin 1.5 % (0.0-3.0) 11/26/16 04:20 Partha Test Pos 12/04/16 00:50 ABG Potassium 6.7 mmol/L (3.6-5.2) H* 11/25/16 16:30 VBG pH 7.33 (7.32-7.43) 11/25/16 18:15 VBG pCO2 46 mmHg (40-60) 11/25/16 18:15 VBG HCO3 23.2 mmol/L 11/25/16 18:15 VBG Total CO2 25.7 mmol/L (22-28) 11/25/16 18:15 VBG O2 Sat (Calc) 92.1 % (40-65) H 11/25/16 18:15 VBG Base Excess -1.9 mmol/L (0.0-2.0) L 11/25/16 18:15 VBG Potassium 6.5 mmol/L (3.6-5.2) H* 11/25/16 18:15 A-a O2 Difference 267.0 mm/Hg 12/04/16 00:50 Respiratory Index 0.7 12/04/16 00:50 Hgb O2 Saturation 96.6 % (95.0-98.0) 11/26/16 04:20 Sodium 136.0 mmol/l (132-148) 11/25/16 18:15 Chloride 105.0 mmol/L (98-107) 11/25/16 18:15 Glucose 175 mg/dl (65-105) H 11/25/16 18:15 Lactate 1.5 mmol/L (0.7-2.1) 11/25/16 18:15 Liter Flow 6.0 11/25/16 15:20 Mechanical Rate 18 11/26/16 04:20 FiO2 100.0 % 12/04/16 00:50 Tidal Volume 400 11/26/16 04:20 PEEP 5 11/26/16 04:20 Inspiratory BiPAP 12 12/04/16 00:50 Expiratory BiPAP 6 12/04/16 00:50 Crit Value Called To Dr macdonald 11/25/16 18:15 Crit Value Called By Aníbal gimenez 11/25/16 18:15 Crit Value Read Back Y 11/25/16 18:15 Blood Gas Notified Time 18111/25/16 18:15 Sodium 133 mmol/L (132-148) 12/13/16 07:04 Potassium 4.4 mmol/L (3.6-5.2) 12/13/16 07:04 Chloride 94 mmol/L (98-107) L 12/13/16 07:04 Carbon Dioxide 29 mmol/L (22-30) 12/13/16 07:04 Anion Gap 15 (10-20) 12/13/16 07:04 BUN 32 mg/dL (7-17) H 12/13/16 07:04 Creatinine 7.2 MG/DL (0.7-1.2) H 12/13/16 07:04 Est GFR ( Amer) 7 12/13/16 07:04 Est GFR (Non-Af Amer) 6 12/13/16 07:04 POC Glucose (mg/dL) 152 mg/dL (65-110) H 12/13/16 11:01 Random Glucose 144 mg/dL (65-105) H 12/13/16 07:04 Hemoglobin A1c 6.6 % (4.2-6.5) H 11/20/16 06:59 Serum Osmolality 302 mosm/kg (272-300) H 12/07/16 06:43 Lactic Acid < 0.5 mmol/L (0.7-2.1) L 12/02/16 11:55 Calcium 9.7 mg/dl (8.6-10.4) 12/13/16 07:04 Phosphorus 5.3 mg/dL (2.5-4.5) H 12/13/16 07:04 Magnesium 2.8 mg/dL (1.6-2.3) H 12/13/16 07:04 Iron 55 ug/dL (37-170) 12/13/16 07:04 TIBC 170 ug/dL (250-450) L 12/13/16 07:04 % Saturation 32 (20-55) 12/13/16 07:04 Ferritin > 1000.0 ng/mL 11/29/16 06:02 Total Bilirubin 0.6 mg/dL (0.2-1.3) 12/13/16 07:04 AST 36 U/L (14-36) 12/13/16 07:04 ALT 9 U/L (9-52) D 12/13/16 07:04 Alkaline Phosphatase 187 U/L (38-126) H 12/13/16 07:04 Total Creatine Kinase < 20 U/L (30-135) L 11/24/16 06:19 CK-MB (Mass) 0.58 ng/mL (0.0-3.38) 11/24/16 06:19 Troponin I 0.0260 ng/mL (0.00-0.120) 11/11/16 13:20 Troponin I, Quant 0.0140 ng/mL (0.00-0.120) 11/24/16 06:19 NT-Pro-B Natriuret Pep 48007 pg/mL (0-900) H 11/29/16 06:02 Total Protein 7.2 g/dL (6.3-8.3) 12/13/16 07:04 Albumin 3.1 g/dL (3.5-5.0) L 12/13/16 07:04 Globulin 4.1 gm/dL (2.2-3.9) H 12/13/16 07:04 Albumin/Globulin Ratio 0.8 (1.0-2.1) L 12/13/16 07:04 Prealbumin 6.0 mg/dL (17.6-36.0) L 11/13/16 07:16 Amylase 73 U/L (30-110) 11/13/16 07:16 Lipase 81 U/L (23-300) 11/13/16 07:16 Vitamin B12 959 pg/mL (239-931) H 12/13/16 07:04 Folate 7.0 ng/mL 11/18/16 18:34 Procalcitonin 13.67 NG/ML (0.19-0.49) H 11/12/16 06:48 Arterial Blood Potassium 6.7 mmol/L (3.6-5.2) H* 11/25/16 16:30 Venous Blood Potassium 6.5 mmol/L (3.6-5.2) H* 11/25/16 18:15 Urine Color Yellow (YELLOW) 11/20/16 18:16 Urine Clarity Turbid (Clear) 11/20/16 18:16 Urine pH 8.0 (5.0-8.0) 11/20/16 18:16 Ur Specific Harts 1.014 (1.003-1.030) 11/20/16 18:16 Urine Protein 2+ mg/dL (NEGATIVE) H 11/20/16 18:16 Urine Glucose (UA) 2+ mg/dL (Normal) H 11/20/16 18:16 Urine Ketones Negative mg/dL (NEGATIVE) 11/20/16 18:16 Urine Blood Negative (NEGATIVE) 11/20/16 18:16 Urine Nitrate Negative (NEGATIVE) 11/20/16 18:16 Urine Bilirubin Negative (NEGATIVE) 11/20/16 18:16 Urine Urobilinogen Normal mg/dL (0.2-1.0) 11/20/16 18:16 Ur Leukocyte Esterase 3+ Pauline/uL (Negative) H 11/20/16 18:16 Urine WBC (Auto) 482 /hpf (0-5) H 11/20/16 18:16 Urine WBC Clumps (Auto) Many /hpf (NONE) H 11/20/16 18:16 Ur Squamous Epith Cells 96 /hpf (0-5) H 11/20/16 18:16 Urine Bacteria Mod (<OCC) H 11/20/16 18:16 Vancomycin Trough 23.5 ug/mL (5.0-10.0) H 12/04/16 12:44 Random Vancomycin 28.02 ug/mL 12/06/16 06:58 Phenytoin 10.9 ug/mL (10-20) 12/06/16 06:58 C. difficile Ag & Toxin Negative (NEGATIVE) 11/17/16 03:54 Hep Bs Antigen Negative (NEGATIVE) 11/13/16 11:01 Hep Bs Antibody Indeterminate (NEGATIVE) 11/13/16 10:30 Blood Type A POSITIVE 11/29/16 10:03 Blood Type Confirm A POSITIVE 11/11/16 21:14 Antibody Screen Negative 11/29/16 10:03 - Hospital Course Hospital Course: Pt originally admitted to [facility] after spending a few weeks in [facility] after a prolonged hospitalization in [facility] for peritonitis. Pt has been undergoing peritoneal dialysis for many years as a consquence of complications of diabetes and hypertension. Pt had spiked a fever once 2 days - Date & Time of H&P Date of H&P: 12/13/16 Discharge Exam - Head Exam Head Exam: ATRAUMATIC, NORMAL INSPECTION, NORMOCEPHALIC - Eye Exam Eye Exam: Normal appearance Pupil Exam: NORMAL ACCOMODATION - ENT Exam ENT Exam: Normal Exam - Neck Exam Neck exam: Normal Inspection - Respiratory Exam Respiratory Exam: Clear to PA & Lateral, NORMAL BREATHING PATTERN - Cardiovascular Exam Cardiovascular Exam: REGULAR RHYTHM - GI/Abdominal Exam GI & Abdominal Exam: Normal Bowel Sounds - Rectal Exam Rectal Exam: Deferred - Extremities Exam Extremities exam: normal inspection - Neurological Exam Neurological exam: Alert, CN II-XII Intact, Normal Gait, Oriented x3, Reflexes Normal - Psychiatric Exam Psychiatric exam: Normal Affect, Normal Mood - Skin Skin Exam: Intact, Normal Color, Warm Discharge Plan - Discharge Medications Prescriptions: ALPRAZolam [Xanax] 0.25 mg PO Q8H PRN #60 tab PRN Reason: Anxiety - Follow Up Plan Condition: GUARDED Disposition: REHAB FACILITY/REHAB UNIT Patient education suggested?: No Instructions: Dialysis Diet (DC), Exploratory Laparoscopy (DC), Sepsis (DC), Sepsis (GEN), Weakness (GEN), Hypertension (DC), End Stage Kidney Disease (DC), Perma-cath Placement (DC) Additional Instructions: 1. When stable, pls obtain q2 week's bloodwork for CBC, CMP, LFT, Phosphorus, Magnesium 2. Pt's BS rarely goes above 220, if at all. Spikes of high BS may be indicative of an occult infection. Pls monitor closely. 3. Accu checks twice at day: before lunch and before sleeping. 4. Pls have Eliquis on hand before leaving for subacute rehab. Missng a dose of Eliquis may precipitate a CVA. 5. DO NOT DISCONTINUE THE PICC LINE. Also pls clearly document the length of PICC line placed before discharge so that if it is inadvertently removed or removed bec it is not needed, information will be at hand. PICC line is #5 Cymro catheter at 45 cm line with tip at SVC just above atrium. 5. Pls get Keppra level monthly with dialysis bloodwork and give dialysis bloodwork to kamron Tabor to send to the office. 6. VANCOMYCIN 1 g IVPB must be given after every hemodialysis for 6 doses, then will be re-evaluated if to continue. a: pls obtain random vanco level the morning after the 3rd dose and call attending MD for further instructions b: call attending MD after the 6th dose and provide info on appearance of drainage in abdominal LINK drain; goal drainange amt==- 0 (zero) to max 5 ml/per day, and appaearance should be clear/serous, no trace of yellow or green drainage 7. Pls call me at [phone] (office number) so I can fax you rx for Schedule IV meds Referrals: Geraldo Sousa MD [Staff Provider] - Clinical Quality Measures - CQM - Stroke If Other selected, reason for not providing: NOT APPLICABLE Anticoagulation Prescribed for Atrial Flutter, Atrial Fibrillation and History of:: Not Applicable Other Contraindication/Reason for not providing: NOT APPLICABLE - CQM - VTE Did patient receive overlap therapy during hosptialization?: Yes If yes, what was given to the patient?: heparin Surgical Overlap Therapy Reason during Hospitalization: NOT APPLICABLE Medical Reason for Overlap Therapy during Hospitalization: PULMONARY EMBOLISM Is patient being discharged on overlap therapy?: No (converted to oral anticoagulant, Eliquis) If yes, what prescription has been given to the patient?: Eliquis 5 mg po daily Medical Reason for discharge Overlap Therapy: Yes - Date & Time of Discharge Summary Date of Discharge Summary: 12/13/16
[2016-12-13 12:54] VITALS: O2SAT 98
--- NOTE | 2016-12-13 13:56 | CP.PCM.PN ---
Subjective - Date & Time of Evaluation Date of Evaluation: 12/13/16 Time of Evaluation: 13:54 - Subjective Subjective: s/p dialysis now- UF 2500ml Remains afebrile; eating better. No new complaints- no n, v, f, c, diarrhea, CPs , SOB Plans for discharge noted. Will need keppra levels as outpt Renal status has been stable-will need monitoring as outpatient Objective - Vital Signs/Intake and Output Vital Signs (last 24 hours): Temp Pulse Resp BP Pulse Ox 98.2 F 90 16 116/72 98 12/13/16 12:35 12/13/16 12:35 12/13/16 12:35 12/13/16 12:35 12/13/16 12:35 Intake and Output: 12/13/16 12/13/16 06:59 18:59 Intake Total 310 Output Total 25 Balance 285 - Medications Medications: Current Medications Acetaminophen (Tylenol 325mg Tab) 650 mg PO Q6 PRN PRN Reason: temp > 99.5 Last Admin: 11/23/16 18:44 Dose: 650 mg Albuterol/Ipratropium (Duoneb 3 Mg/0.5 Mg (3 Ml) Ud) 3 ml INH RQ6 [facility] Last Admin: 12/13/16 13:27 Dose: 3 ml Apixaban (Eliquis) 5 mg PO DAILY [facility] Last Admin: 12/12/16 10:19 Dose: 5 mg Aspirin (Ecotrin) 81 mg PO DAILY [facility] Last Admin: 12/12/16 10:20 Dose: 81 mg Calcium Acetate (Phoslo) 667 mg PO TIDCC [facility] Last Admin: 12/13/16 08:30 Dose: 667 mg Docusate Sodium (Colace) 100 mg PO BID [facility] Last Admin: 12/12/16 18:15 Dose: 100 mg Epoetin Mik (Procrit) 10,000 unit IV MWF [facility] Stop: 12/21/16 11:00 Last Admin: 12/13/16 11:21 Dose: 10,000 unit Famotidine (Pepcid) 20 mg PO DAILY [facility] Last Admin: 12/12/16 10:19 Dose: 20 mg Folic Acid (Folic Acid) 1 mg PO DAILY [facility] Last Admin: 12/12/16 10:18 Dose: 1 mg Insulin Human Regular (Novolin R) 0 unit SC [facility] PRN Reason: Protocol Last Admin: 12/12/16 22:08 Dose: Not Given Lactobacillus Acidophilus (Bacid Acidophilus) 1 cap PO BID [facility] Last Admin: 12/12/16 18:15 Dose: 1 cap Levetiracetam (Keppra) 250 mg PO BID [facility] Last Admin: 12/12/16 18:15 Dose: 250 mg Losartan Potassium (Cozaar) 100 mg PO DAILY [facility] Last Admin: 12/12/16 10:18 Dose: 100 mg Metoprolol Tartrate (Lopressor) 25 mg PO BID [facility] Last Admin: 12/12/16 18:14 Dose: 25 mg Nitroglycerin (Nitrostat Sl Tab) 0.4 mg SL Q15M PRN PRN Reason: chest pain - Labs Labs: 12/13/16 07:04 12/13/16 07:04 PT 10.0 SECONDS (9.7-12.2) 12/11/16 05:36 INR 0.9 12/11/16 05:36 APTT 60 SECONDS (21-34) H D 12/12/16 06:14 - Constitutional Appears: No Acute Distress, Chronically Ill - Head Exam Head Exam: ATRAUMATIC, NORMAL INSPECTION - Eye Exam Eye Exam: EOMI, Normal appearance - Neck Exam Neck Exam: Normal Inspection. absent: Tenderness - Respiratory Exam Respiratory Exam: Clear to Ausculation Bilateral, NORMAL BREATHING PATTERN - Cardiovascular Exam Cardiovascular Exam: REGULAR RHYTHM, +S1 - GI/Abdominal Exam GI & Abdominal Exam: Soft. absent: Tenderness - Extremities Exam Extremities Exam: Normal Inspection. absent: Pedal Edema, Tenderness - Neurological Exam Neurological Exam: Awake, CN II-XII Intact - Skin Skin Exam: Dry, Warm Assessment and Plan (1) Type 2 diabetes mellitus with diabetic nephropathy Status: Inactive (2) ESRD (end stage renal disease) Status: Chronic (3) Intra-abdominal abscess Status: Resolved (4) Pulmonary emboli Status: Acute (5) Metabolic encephalopathy Status: Resolved - Assessment and Plan (Free Text) Plan: Same dialysis as outpatient follow up labs closely PICC to remain in place
[2016-12-13] MEDS: Lactobacillus Acidophilus 500 MU Cap PO SCH ×2 (13:59→17:39)
[2016-12-13 17:40] VITALS: BP 137/87
[2016-12-13 17:57] VITALS: PULSE 100; RESP 20; TEMP 97.9
== END 2016-12-13 20:30 | DRG 356 ==
LOC: C.ER 11:59 → C.9E 18:02 → C.3T 18:46 → C.9E 19:03 → C.6T 21:08 → C.9I 11-25 17:21 → C.3T 12-10 09:03 → C.6T 12-10 12:10
PROVIDERS: ADMIT Family Medicine; ATTEND Family Medicine
PROC: 0W9G3ZZ Drainage of Peritoneal Cavity, Percutaneous Approach (ICD-10-PCS; 2016-11-14)
PROC: 5A1D60Z (ICD-10-PCS; 2016-11-15)
PROC: 02HV33Z Insertion of Infusion Device into Superior Vena Cava, Percutaneous Approach (ICD-10-PCS; 2016-11-18)
PROC: B5181ZA Fluoroscopy of Superior Vena Cava using Low Osmolar Contrast, Guidance (ICD-10-PCS; 2016-11-18)
PROC: 0W9G0ZZ Drainage of Peritoneal Cavity, Open Approach (ICD-10-PCS; principal; 2016-11-25 19:15)
PROC: 05HM33Z Insertion of Infusion Device into Right Internal Jugular Vein, Percutaneous Approach (ICD-10-PCS; 2016-12-10)
PROC: B5131ZA Fluoroscopy of Right Jugular Veins using Low Osmolar Contrast, Guidance (ICD-10-PCS; 2016-12-10)
DX: K65.1 Peritoneal abscess (principal); I26.99 Other pulmonary embolism without acute cor pulmonale; G93.41 Metabolic encephalopathy; I13.2 Hypertensive heart and chronic kidney disease with heart failure and with stage 5 chronic kidney disease, or end stage renal disease; K31.84 Gastroparesis; E11.43 Type 2 diabetes mellitus with diabetic autonomic (poly)neuropathy; N18.6 End stage renal disease; E11.22 Type 2 diabetes mellitus with diabetic chronic kidney disease; D63.1 Anemia in chronic kidney disease; E11.21 Type 2 diabetes mellitus with diabetic nephropathy; I50.9 Heart failure, unspecified; E87.6 Hypokalemia; Z99.2 Dependence on renal dialysis

== ENCOUNTER 2017-02-13 06:21 | Day surgery (SDC) | payer MEDICARE, BC ==
[2017-02-04 09:41] VITALS: BMI 23.9
[2017-02-13 07:32] LABS: CALCIUM 10.3 mg/dl (8.6-10.4)
[2017-02-13] MEDS ORDERED: ceFAZolin IV 1 gm in Dextrose 1 GM/50 ML BAG IVPB ONE (07:35)
[2017-02-13] MEDS ORDERED: Iohexol 240 200 ML IJ ONE (07:36)
[2017-02-13] MEDS ORDERED: HEPARIN-NS 5,000 UNITS/500 ML 10,000 UNIT/1,000 ML BAG IV ONE (07:36)
[2017-02-13] MEDS ORDERED: Etomidate 20 mg/10ml Inj IV ONE (07:48)
[2017-02-13] MEDS ORDERED: Sodium Chloride 0.9% 500 ML IV ONE (07:50)
[2017-02-13 08:04] LABS: INR 0.9
[2017-02-13] MEDS ORDERED: HYDROmorphone 0.5 mg/0.5 ml ISec IVP PRN ×2 (09:41→09:42)
[2017-02-13 11:12] VITALS: O2SAT 95
[2017-02-13 12:24] VITALS: RESP 18
[2017-02-13 13:48] VITALS: BP 125/59; PULSE 75; TEMP 97.1
--- NOTE | 2017-02-13 18:21 | OP ---
PROCEDURE DATE: 02/13/2017 PREOPERATIVE DIAGNOSIS: Renal failure. POSTOPERATIVE DIAGNOSIS: Renal failure. PROCEDURE: Placement of hybrid AV shunt, left forearm. SURGEON: Ash Garzon Jr., MD DOCUMENT SPECIALIST: Dr. Bingham. RESIDENT ANESTHESIOLOGIST: , general mask. INDICATIONS: The patient is a 71-year-old woman who had severe illnesses a number of months ago with multiple problems including intraabdominal abscesses, etc. She has required dialysis, presently dialyzed with catheter. Preoperative vein mapping did not demonstrate any cephalic vein or any basilic vein which could be utilized for a fistula even in a two-stage procedure. Because of this, a hybrid shunt was placed in the upper arm. There was no available vein of adequate caliber in the forearm to allow for placement of a forearm shunt. At the end of the procedure, there was a palpable pulse at the wrist, good pulse oximetry tracings and a very good thrill throughout the shunt. In addition, findings on the completion venogram after the angioplasty of the venous stent showed that there was some narrowing at the cephalic arch, but this was still a significant lumen. No dilatation or other intervention was undertaken. DESCRIPTION OF PROCEDURE: The patient was given general anesthesia and intravenous antibiotics. The arm was prepped and draped in the standard fashion. The vein was identified with ultrasound. The brachial artery was identified. The brachial artery was dissected free. The vein in the upper portion of the arm was cannulated using ultrasound guidance and micropuncture technique. The appropriate dilators were placed and a wire centrally. The stent in the hybrid 6-mm graft was then deployed in this and then brought through a subcutaneous tunnel. Prior to carrying out the arterial anastomosis, we carried out an angioplasty of this, showing that the vein was in the standard fashion with good outflow and good inflow. Also noted was centrally. We then carried out the arterial anastomosis with loupe magnification and heparin anticoagulation. After this has been all done, I was quite satisfied with the results and we terminated the procedure by closing the skin with nylon sutures and clips. Blood loss for the procedure was less than 100 mL. The operation carried out was placement of hybrid shunt in the left upper arm. The standard balloon dilatation was carried out for the stent part of the procedure. Ash Garzon Jr., MD cc: Geraldo Sousa MD; Hansel Wall MD
--- NOTE | 2017-02-14 12:54 | RAD ---
PROCEDURE: Intraoperative Fluoroscopy. HISTORY: RENAL FAILURE FINDINGS: Fluoroscopic assistance was provided for deviation/hybrid graft procedure. Please refer to the operative report from during the procedure: 67.8 seconds.
== END 2017-02-13 13:45 | disposition home or self-care (01) ==
LOC: C.SDS 06:21
PROVIDERS: ATTEND Surgery Vascular Surgery
DX: N18.6 End stage renal disease (principal)
CPT/HCPCS: 36415; 36800; 76000; 80048; 85610; 85730; C1725; J0690; J1170; J1644; J3010; J7040

== ENCOUNTER 2017-09-02 23:39 | Emergency (ER) | payer MEDICARE, BC ==
[2017-09-02 23:40] VITALS: BMI 23.9
[2017-09-02 23:56] VITALS: TEMP 97.6
--- NOTE | 2017-09-03 00:43 | C.PDOC ---
History Of Present Illness Pt is a 71 yo who today was climbing stairs,lost her balance and fell striking her buttocks and head.No LOC.Now with c/o low back pain.PMH is signif for CRF on hemodialysis. Patient has history of chronic renal failure. She has been on peritoneal dialysis in the past but since March 2017, has been on hemodialysis. Patient 's PMHx is also significant for prior pulmonary embolism, which occurred while patient was hospitalized last year for spontaneous bacterial peritonitis. - HPI Chief Complaint (Nursing): Dizziness/Lightheaded History Per: Patient History/Exam Limitations: no limitations Onset/Duration Of Symptoms: Hrs Description Of Injury (Context): fell climbing stairs Location Of Injury: Right: Face Severity: Mild - Fall Fall:Prior To Injury: Tripped Past Medical History Reviewed: Historical Data, Nursing Documentation, Vital Signs Vital Signs: Last Vital Signs Temp 97.6 F 09/02/17 23:52 Pulse 78 09/03/17 02:53 Resp 12 09/03/17 02:53 BP 140/55 L 09/03/17 02:53 Pulse Ox 98 09/03/17 03:00 - Medical History PMH: Anemia, Arthritis (NO MORE), HTN, Hypercholesterolemia, Pulmonary Embolism , Chronic Kidney Disease, Seizures Surgical History: No Surg Hx - [facility] Procedures DRAINAGE OF PERITONEAL CAVITY, OPEN APPROACH (11/11/16) DRAINAGE OF PERITONEAL CAVITY, PERCUTANEOUS APPROACH (11/11/16) FLUOROSCOPY OF R JUGULAR VEIN USING L OSM CONTRAST, GUIDANCE (11/11/16) FLUOROSCOPY OF SUP VENA CAVA USING L OSM CONTRAST, GUIDANCE (11/11/16) INSERT INFUSION DEV IN R INT JUGULAR VEIN, PERC (11/11/16) INSERTION OF INFUSION DEV INTO SUP VENA CAVA, PERC APPROACH (11/11/16) PERFORMANCE OF URINARY FILTRATION, MULTIPLE (11/11/16) Family History: States: Unknown Family Hx - Social History Hx Alcohol Use: No Hx Substance Use: No - Immunization History Hx Influenza Vaccination: Yes Hx Pneumococcal Vaccination: Yes Review Of Systems Musculoskeletal: Positive for: Back Pain (lower) Physical Exam - Physical Exam Appears: Non-toxic, No Acute Distress Skin: Warm, Dry, Ecchymosis (over right zygoma and forehead ) Head: Atraumatic, Normacephalic Eye(s): bilateral: Normal Inspection Oral Mucosa: Moist Neck: Supple Chest: Symmetrical, No Deformity, No Tenderness Cardiovascular: Rhythm Regular, No Murmur Respiratory: Normal Breath Sounds, No Rales, No Rhonchi, No Wheezing Gastrointestinal/Abdominal: Soft, No Tenderness, No Guarding, No Rebound Back: Other (tenderness over lumbar spine, saccrum and coccyx ) Extremity: Normal ROM, Capillary Refill (less than 2 seconds ), Other (AV shunt in left upper extremity with positive thrill ) Neurological/Psych: Oriented x3, Normal Speech, Normal Cognition Gait: Steady ED Course And Treatment ECG: Interpreted By Me ECG Rhythm: Sinus Rhythm ECG Interpretation: Normal Interpretation Of ECG: NSR at 87 BPM,no acute STTW changes,no ectopy O2 Sat by Pulse Oximetry: 98 (on RA) Pulse Ox Interpretation: Normal - CT Scan/US CT Head Other Rad Studies (CT/US): Interpreted By Me, Read By Radiologist, Radiology Report Reviewed CT/US Interpretation: EXAM: CT Head Without Intravenous Contrast. CLINICAL HISTORY: 71 years old, female; Pain; Headache and other: Fall; Patient HX: 12-02; Additional info: Fall. A. little bump right side under ear. TECHNIQUE: Axial computed tomography images of the head/brain without intravenous contrast. All CT scans at. this facility use one or more dose reduction techniques, viz.: automated exposure control; ma/kV. adjustment per patient size (including targeted exams where dose is matched to indication; i.e. head); . or iterative reconstruction technique. 345 images are submitted. Coronal and sagittal reformatted images were created and reviewed. Axial reformatted images were created and reviewed. COMPARISON: CT - HEAD W/O CONTRAST 17:37. FINDINGS: Artifacts: There is artifact from left ear ring. Brain: Bilateral eye lenses are not well seen. Correlation with patient's ophthalmic history is. recommended. Cerebral and cerebellar volume loss. Patchy hypodensity is seen in the. periventricular and subcortical white matter. No hemorrhage. Ventricles: Unremarkable. No ventriculomegaly. Bones/joints: Unremarkable. No acute fracture. Soft tissues: Posterior parietal convexity scalp hematoma near the vertex. Vasculature: Vascular calcifications. Sinuses : Unremarkable. No acute sinusitis. Mastoid air cells: Unremarkable. No mastoid effusion. IMPRESSION: 1. Posterior parietal convexity scalp hematoma near the vertex. 2. No evidence of an acute intracranial hemorrhage, midline shift or mass effect is identified. CT Lumbar Spine Other Rad Studies (CT/US): Interpreted By Me, Read By Radiologist, Radiology Report Reviewed CT/US Interpretation: EXAM: CT Lumbar Spine Without Intravenous Contrast. CLINICAL HISTORY: 71 years old, female; Pain; Low back pain; Additional info: Pain S/P fall. TECHNIQUE: Axial computed tomography images of the lumbar spine without intravenous contrast. All CT scans. at this facility use one or more dose reduction techniques, viz.: automated exposure control; ma/kV. adjustment per patient size (including targeted exams where dose is matched to indication; i.e. head);. or iterative reconstruction technique. 439 images are submitted. Coronal and sagittal reformatted images were created and reviewed. COMPARISON: No relevant prior studies available. FINDINGS: Vertebrae: There is mild anterolisthesis of L4 over L5. Mild left-sided lumbar scoliosis. No acute. fracture. Discs/spinal canal/neural foramina: L3-L4: There is mild diffuse disc bulge. Facet arthritis. Mild. ligamentum flavum hypertrophy. L4-L5 : There is moderate to severe diffuse disc bulge and. ligamentum flavum hypertrophy. Facet arthritis. Moderate to severe spinal stenosis. L5-S1: Mild. diffuse disposed. Moderate left neural foramen narrowing and mild right neural foramina narrowing. Soft tissues: Unremarkable. Stomach and bowel: Large amount of stool in the visualized portions of the colon. Reproductive: Enlarged uterus. Possible uterine fibroids. IMPRESSION:There is no acute fracture of the lumbar spine. Medical Decision Making Medical Decision Making: Impression: multiple contusions s/p fall Progress: Patient is on Eliquis, will order Head CT. Lumbar Spine XR and Forearm XR ordered. Lumbar Spine XR reviewed. Slippage noted between L4-L5. Will order Lumbar Spine CT. Right forearm XR reviewed. Results are negative for fractures. Disposition - Disposition Referrals: [facility] [Outside] Disposition: HOME/ ROUTINE Disposition Time: 03:04 Condition: FAIR Instructions: Scalp Contusion in Adults (ED), Facial Contusion (ED) Forms: [facility] (Romanian) - Clinical Impression Clinical Impression: Fall (on) (from) other stairs and steps, initial encounter - Scribe Statement The provider has reviewed the documentation as recorded by the Scribe (Roxy Cao) Provider Attestation: All medical record entries made by the Scribe were at my direction and personally dictated by me. I have reviewed the chart and agree that the record accurately reflects my personal performance of the history, physical exam, medical decision making, and the department course for this patient. I have also personally directed, reviewed, and agree with the discharge instructions and disposition.
--- NOTE | 2017-09-03 01:23 | CT ---
EXAM: CT Head Without Intravenous Contrast CLINICAL HISTORY: 71 years old, female; Pain; Headache and other: Fall; Patient HX: 12-02-16; Additional info: Fall. A little bump right side under ear TECHNIQUE: Axial computed tomography images of the head/brain without intravenous contrast. All CT scans at this facility use one or more dose reduction techniques, viz.: automated exposure control; ma/kV adjustment per patient size (including targeted exams where dose is matched to indication; i.e. head); or iterative reconstruction technique. 345 images are submitted. Coronal and sagittal reformatted images were created and reviewed. Axial reformatted images were created and reviewed. COMPARISON: CT - HEAD W/O CONTRAST 2016-12-02 17:37 FINDINGS: Artifacts: There is artifact from left ear ring. Brain: Bilateral eye lenses are not well seen. Correlation with patient's ophthalmic history is recommended. Cerebral and cerebellar volume loss. Patchy hypodensity is seen in the periventricular and subcortical white matter. No hemorrhage. Ventricles: Unremarkable. No ventriculomegaly. Bones/joints: Unremarkable. No acute fracture. Soft tissues: Posterior parietal convexity scalp hematoma near the vertex. Vasculature: Vascular calcifications. Sinuses: Unremarkable. No acute sinusitis. Mastoid air cells: Unremarkable. No mastoid effusion. IMPRESSION: 1. Posterior parietal convexity scalp hematoma near the vertex. 2. No evidence of an acute intracranial hemorrhage, midline shift or mass effect is identified.
--- NOTE | 2017-09-03 02:53 | CT ---
EXAM: CT Lumbar Spine Without Intravenous Contrast CLINICAL HISTORY: 71 years old, female; Pain; Low back pain; Additional info: Pain S/P fall TECHNIQUE: Axial computed tomography images of the lumbar spine without intravenous contrast. All CT scans at this facility use one or more dose reduction techniques, viz.: automated exposure control; ma/kV adjustment per patient size (including targeted exams where dose is matched to indication; i.e. head); or iterative reconstruction technique. 439 images are submitted. Coronal and sagittal reformatted images were created and reviewed. COMPARISON: No relevant prior studies available. FINDINGS: Vertebrae: There is mild anterolisthesis of L4 over L5. Mild left-sided lumbar scoliosis. No acute fracture. Discs/spinal canal/neural foramina: L3-L4: There is mild diffuse disc bulge. Facet arthritis. Mild ligamentum flavum hypertrophy. L4-L5: There is moderate to severe diffuse disc bulge and ligamentum flavum hypertrophy. Facet arthritis. Moderate to severe spinal stenosis. L5-S1: Mild diffuse disposed. Moderate left neural foramen narrowing and mild right neural foramina narrowing. Soft tissues: Unremarkable. Stomach and bowel: Large amount of stool in the visualized portions of the colon. Reproductive: Enlarged uterus. Possible uterine fibroids. IMPRESSION: There is no acute fracture of the lumbar spine.
[2017-09-03 02:55] VITALS: BP 140/55; PULSE 78; RESP 12
[2017-09-03 03:00] VITALS: O2SAT 98
--- NOTE | 2017-09-03 13:35 | RAD ---
PROCEDURE: Radiographs of the Lumbar Spine. HISTORY: trauma COMPARISON: No prior. FINDINGS: BONES: Scoliosis, secondary degenerative change at multiple levels. DISC SPACES: Grade 1 anterolisthesis L4-5. Disc degenerative changes L5-S1. OTHER FINDINGS: Calcified nonaneurysmal abdominal aorta. IMPRESSION: No acute findings related to/accounting for the clinical presentation. Additional benign and/or incidental findings described above.
--- NOTE | 2017-09-03 13:36 | RAD ---
PROCEDURE: Right forearm HISTORY: bruising to right forearm COMPARISON: None TECHNIQUE: Standard protocol for this study/examination. FINDINGS: No acute osseous or articular abnormalities. Soft tissue swelling/ injury mid and distal right forearm. IMPRESSION: Soft tissue swelling without acute articular or osseous abnormality.
== END 2017-09-03 03:14 | disposition home or self-care (01) ==
LOC: C.ER 23:39
DX: S00.03XA Contusion of scalp, initial encounter (principal); S00.83XA Contusion of other part of head, initial encounter; W10.9XXA Fall (on) (from) unspecified stairs and steps, initial encounter; N18.9 Chronic kidney disease, unspecified; Z99.2 Dependence on renal dialysis; Z79.01 Long term (current) use of anticoagulants